=== PATIENT | male | born 1935 | race Asian ===

== ENCOUNTER 2018-02-13 12:40 | Inpatient (IN) | END 2018-02-15 17:15 | disposition home or self-care (01) | DRG 244 ==

== ENCOUNTER 2018-04-11 14:56 | Emergency (ER) | END 2018-04-11 19:29 | disposition left against medical advice (07) ==

== ENCOUNTER 2018-04-15 14:12 | Inpatient (IN) | END 2018-04-15 20:00 | DRG 556 ==

== ENCOUNTER 2018-04-15 20:42 | Inpatient (IN) | END 2018-04-24 15:30 | disposition home health service (06) | DRG 561 ==

== ENCOUNTER 2018-07-18 14:26 | Inpatient (IN) | payer MEDICARE, OTHER ==
[~2018-07-18] VITALS: Ht 170.2 cm; Wt 63.6 kg
[~2018-07-18 14:26] MED LIST: ATOR40TA68 NGT; BRIN8DRO BOTH EYES; CLOP75TA27 PO; DICL100G37 TOP; DOCU-221 PO; DORZ10DR6 BOTH EYES; DOXA4TAB3 PO; NIFE30TA29 PO; OMEG1CAP2 PO; PANT40TA3 NGT
[2018-07-18] MEDS ORDERED: CEFEPIME 2GM/50 ML (PMX) 50 ML IVPB STA (14:42)
[2018-07-18] MEDS ORDERED: VANCOMYCIN 1 GM (PMX) 250 ML IVPB ONE (15:00)
[2018-07-18] MEDS ORDERED: SODIUM CHLORIDE 0.9% 1L BAG IV* STA (15:20)
[2018-07-18] MEDS ORDERED: FLUT16SP17 NASAL (15:45)
[2018-07-18] MEDS ORDERED: HYDR12.58 NGT (15:45)
[2018-07-18] MEDS ORDERED: DOCU-144 PO (15:46)
[2018-07-18] MEDS ORDERED: FINA5TAB4 GTB (15:46)
[2018-07-18] MEDS ORDERED: DONE5TAB7 PO (15:46)
[2018-07-18] MEDS ORDERED: BACL10TA PO (15:46)
[2018-07-18] MEDS ORDERED: DOXA4TAB3 NGT (15:47)
[2018-07-18] MEDS ORDERED: PREG50CA PO (15:47)
[2018-07-18] MEDS ORDERED: ACETAMINOPHEN 325 MG TAB PO PRN ×2 (17:00→17:30)
[2018-07-18] MEDS ORDERED: ONDANSETRON 4 MG INJ IV PRN ×2 (17:00→17:30)
[2018-07-18] MEDS ORDERED: DOCUSATE SODIUM 100 MG CAP PO PRN (17:30)
[2018-07-18] MEDS ORDERED: LORAZEPAM 2 MG INJ IV ONE (17:30)
[2018-07-18] MEDS ORDERED: morphine 2 MG INJ IV PRN (17:30)
[2018-07-18] MEDS ORDERED: NACL 0.9% 3 ML SYG IV SCH (17:30)
[2018-07-18] MEDS ORDERED: HALOPERIDOL 5 MG INJ IM ONE ×2 (18:30→19:00)
[2018-07-18] MEDS: SOD CHLORIDE 0.9% 1,000 ML IV SCH (18:30)
--- NOTE | 2018-07-18 18:35 | ERD ---
ER Documentation Chief Complaint Chief Complaint SOB with congestion HPI Patient is a 83-year-old male with coronary disease and hypertension who presents with shortness of breath. The patient was brought in by ambulance. He was seen by his primary doctor Dr. Arguello in the office who was concerned with pneumonia. He was brought in by ambulance that was called by Dr. Arguello. He had chest pain which started on Saturday and worsening shortness of breath over the last few days as well as cough. He had low oxygen saturation and does not use home oxygen. ROS All systems reviewed and are negative except as per history of present illness. Medications Home Meds Reported Medications Doxazosin Mesylate* (Doxazosin Mesylate*) 4 Mg Tablet, 4 MG PO HS, TAB 07/18/18 Pregabalin* (Lyrica*) 50 Mg Capsule, 50 MG PO DAILY, CAP 07/18/18 Baclofen* (Baclofen*) 10 Mg Tablet, 10 MG PO BID, TAB 07/18/18 Docusate Sodium* (Colace*) 100 Mg Capsule, 100 MG PO BID, #60 CAP 07/18/18 Finasteride* (Finasteride*) 5 Mg Tablet, 5 MG PO DAILY, TAB 07/18/18 Donepezil* (Donepezil*) 5 Mg Tablet, 5 MG PO DAILY, #30 TAB 07/18/18 Fluticasone Propionate* (Fluticasone Propionate* Nasal) 50 Mcg/[place] - 16 Gm [place].susp, 1 SPRAY NASAL DAILY, #1 BOTTLE TO EACH NOSTRIL 07/18/18 Hydrochlorothiazide* (Hydrochlorothiazide*) 12.5 Mg Tablet, 12.5 MG PO DAILY, #30 TAB 07/18/18 Docusate Sodium* (Doc-Q-Lace*) 100 Mg Capsule, 100 MG PO BID PRN for CONSTIPATION, CAP 02/13/18 Nifedipine* (Afeditab CR*) 30 Mg Tablet.sa, 30 MG PO BID, #30 TAB.SA 02/13/18 Pantoprazole* (Protonix*) 40 Mg Tablet.dr, 40 MG PO DAILY, TAB 02/13/18 Atorvastatin* (Atorvastatin*) 40 Mg Tablet, 40 MG PO QHS, #30 TAB 02/13/18 Discontinued Reported Medications Dorzolamide/Timolol* (Dorzolamide/Timolol*) 10 Ml Drops, 1 DROP BOTH EYES BID, #1 EA 04/12/18 Diclofenac Sodium* (Voltaren* Gel) 1% -100 Gm Gel, 2 GM TOP QID for prn for affected area, #1 TUB 04/12/18 Diclofenac Sodium* (Voltaren* Gel) 1% -100 Gm Gel, 2 GM TOP QID for back pain, #1 TUB 04/12/18 Brinzolamide-Brimonidine (Simbrinza 1%-0.2% Oph) 1%-0.2% - 8 Ml Drops.susp, 1 DROP BOTH EYES, EA 02/13/18 Clopidogrel Bisulfate (Clopidogrel) 75 Mg Tablet, 75 MG PO DAILY, #30 TAB 02/13/18 Doxazosin Mesylate* (Doxazosin Mesylate*) 4 Mg Tablet, 4 MG PO HS, TAB 02/13/18 [place]-3 Acid Ethyl Esters (Lovaza) 1 Gm Capsule, 2 GM PO BID, CAP 02/13/18 Allergies Allergies: Coded Allergies: No Known Allergy (Unverified , 07/18/18) PMhx/Soc History of Surgery: Yes (stent and pacemaker ) Anesthesia Reaction: No Hx Neurological Disorder: No Hx Respiratory Disorders: No Hx Cardiac Disorders: Yes (ID, HTN, HYPERLIPIDEMIA, PACEMAKER, STENT PLACEMENT) Hx Psychiatric Problems: No Hx Miscellaneous Medical Probl: Yes (CAD, RIGHT FOOT TOE FRACTURES, FALLS) Hx Alcohol Use: No Hx Substance Use: No Hx Tobacco Use: No Smoking Status: Never smoker FmHx Family History: diabetes Physical Exam Vitals Vital Signs Date Temp Pulse Resp B/P (MAP) Pulse Ox O2 O2 Flow FiO2 Time Delivery Rate 07/18/18 60 100 100 17:31 07/18/18 60 23 136/50 89 BIPAP 17:30 (78) 07/18/18 60 23 132/51 92 BIPAP 17:00 (78) 07/18/18 61 21 129/58 95 High Flow 16:47 (81) 07/18/18 64 22 133/49 94 High Flow 15:48 (77) 07/18/18 100 14:52 07/18/18 98.1 86 27 154/58 96 14:35 (90) 07/18/18 Nasal 14:30 Cannula Physical Exam Const: Moderate distress Head: Atraumatic Eyes: Normal Conjunctiva ENT: Normal External Ears, Nose and Mouth. Neck: Full range of motion. No meningismus. Resp: Decreased breath sounds bilaterally Cardio: Regular rate and rhythm, no murmurs Abd: Soft, non tender, non distended. Normal bowel sounds Skin: No petechiae or rashes Back: No midline or flank tenderness Ext: No cyanosis, or edema Neur: Awake and alert Psych: Normal Mood and Affect Result Diagram: 07/18/18 1506 07/18/18 1506 Results 24 hrs Laboratory Tests Test 07/18/18 15:02 07/18/18 15:06 07/18/18 17:07 07/18/18 17:13 Urine Color YELLOW Urine Clarity CLEAR Urine pH 5.0 Urine Specific 1.016 [place] Urine Ketones NEGATIVE mg/dL Urine Nitrite NEGATIVE mg/dL Urine Bilirubin NEGATIVE mg/dL Urine NEGATIVE mg/dL Urobilinogen Urine Leukocyte NEGATIVE Chip/ul Esterase Urine NEGATIVE mg/dL Hemoglobin Urine Glucose NEGATIVE mg/dL Urine Total NEGATIVE mg/dl Protein White Blood 14.2 10^3/ul Count Red Blood Count 2.76 10^6/ul Hemoglobin 8.9 g/dl Hematocrit 26.9 % Mean 97.5 fl Corpuscular Volume Mean 32.2 pg Corpuscular Hemoglobin Mean 33.1 g/dl Corpuscular Hemoglobin Conc ent Red Cell 12.7 % Distribution Width Platelet Count 196 10^3/UL Mean Platelet 11.2 fl Volume Immature 0.600 % Granulocytes % Neutrophils % 92.0 % Lymphocytes % 2.3 % Monocytes % 5.0 % Eosinophils % 0.0 % Basophils % 0.1 % Nucleated Red 0.0 /100WBC Blood Cells % Immature 0.090 10^3/ul Granulocytes # Neutrophils # 13.0 10^3/ul Lymphocytes # 0.3 10^3/ul Monocytes # 0.7 10^3/ul Eosinophils # 0.0 10^3/ul Basophils # 0.0 10^3/ul Nucleated Red 0.0 10^3/ul Blood Cells # Prothrombin 15.8 Sec Time Prothrombin 1.2 Time Ratio INR 1.24 International Normalized Rati o Activated 37.5 Sec Partial Thrombo plast Time Sodium Level 136 mmol/L Potassium Level 5.0 mmol/L Chloride Level 100 mmol/L Carbon Dioxide 17 mmol/L Level Anion Gap 19 Blood Urea 59 mg/dl Nitrogen Creatinine 1.54 mg/dl Est Glomerular mL/min Filtrat Rate mL/min Glucose Level 245 mg/dl POC Venous 3.6 mmol/L 3.2 mmol/L Lactate Calcium Level 8.6 mg/dl Troponin I 0.108 ng/ml Bedside Glucose 275 mg/dL Current Medications Medications Dose Sig/Kayy Start Time Status Last (Trade) Ordered Route PRN Stop Time Admin Dose Reason Admin Cefepime HCl 50 ml @ ONCE STAT 07/18/18 DC 07/18/18 100 mls/hr IVPB 14:42 15:13 07/18/18 15:11 Vancomycin 250 ml @ ONCE ONCE 07/18/18 DC 07/18/18 HCl 125 mls/hr IVPB 15:00 15:32 07/18/18 16:59 Sodium 1,910 ml BOLUS OVER 2 07/18/18 DC 07/18/18 Chloride HOURS STAT 15:20 15:31 (NS) IV* 07/18/18 15:21 Ondansetron 4 mg ER BRIDGE 07/18/18 HCl (Zofran PRN IV 17:00 Inj) NAUSEA AND/OR 07/19/18 VOMITING 16:59 650 mg ER BRIDGE 07/18/18 Acetaminophen PRN PO MILD 17:00 (Tylenol PAIN(1-3)OR 07/19/18 Tab) ELEVATED TEMP 16:59 Lorazepam 1 mg ONCE ONCE 07/18/18 DC 07/18/18 (Ativan) IV 17:30 17:36 07/18/18 17:31 Sodium 1,000 ml @ Q10H IV 07/18/18 Chloride 100 mls/hr 17:06 IV Flush 3 ml PER 07/18/18 UNV (NS 3 ml) PROTOCOL IV 17:30 Ondansetron 4 mg Q6H PRN 07/18/18 UNV HCl (Zofran IV NAUSEA 17:30 Inj) AND/OR VOMITING 650 mg Q6H PRN 07/18/18 UNV Acetaminophen PO PAIN 17:30 (Tylenol LEVEL 1-3 OR Tab) FEVER Morphine 2 mg Q4H PRN 07/18/18 UNV Sulfate IV PAIN 17:30 (morphine) LEVEL 7-10 Famotidine 20 mg Q12 IV 07/18/18 UNV (Pepcid Iv) 21:00 Enoxaparin 30 mg DAILY SC 07/19/18 UNV Sodium 09:00 (Lovenox) Cefepime HCl 50 ml @ Q8 IVPB 07/18/18 UNV 100 mls/hr 22:00 40 mg QHS PO 07/18/18 UNV Atorvastatin 21:00 Calcium (Lipitor) Baclofen 10 mg BID PO 07/18/18 UNV (Lioresal) 21:00 Docusate 100 mg BID PO 07/18/18 UNV Sodium 21:00 (Colace) Docusate 100 mg BID PRN 07/18/18 UNV Sodium PO 17:30 (Colace) CONSTIPATION Donepezil 5 mg DAILY PO 07/19/18 UNV HCl 09:00 (Aricept) Doxazosin 4 mg HS PO 07/18/18 UNV Mesylate 21:00 (Cardura) Finasteride 5 mg DAILY PO 07/19/18 UNV (Proscar) 09:00 Fluticasone 1 spray DAILY 07/19/18 UNV Propionate NASAL 09:00 (Flonase 0.05% Nasal) 12.5 mg DAILY PO 07/19/18 UNV Hydrochloroth 09:00 iazide (Hydrochlorot hiazide) Nifedipine 30 mg BID PO 07/18/18 UNV (Procardia 21:00 Xl) 40 mg DAILY PO 07/19/18 UNV Pantoprazole 09:00 (Protonix Tab) Pregabalin 50 mg DAILY PO 07/19/18 (Lyrica) 09:00 Haloperidol 5 mg ONCE ONCE 07/18/18 DC 07/18/18 (Haldol) IM 18:30 18:12 07/18/18 18:31 Procedures/MDM Chest X-ray 1V Interpreted by me: Soft Tissue: No acute abnormalities Bones: No acute abnormalities Mediastinum/Cardiac Silhouette/Lungs: Bilateral pneumonia EKG read by me: Rate/Rhythm: Paced rhythm at a normal rate Intervals: Normal Impression: Paced rhythm with negative Sgarbossa criteria Sepsis Documentation: Patient's infectious symptoms have not stabilized and the patient is at risk of rapid decompensation. The patient will be admitted for careful hydration, antibiotic therapy, and infectious source control. SEVERE SEPSIS CRITERIA: Infectious source: Pneumonia End organ damage indicated by: Lactate greater than 2 and respiratory failure SEPSIS MANAGEMENT Time of recognition of sepsis: 1506. Time of recognition of severe sepsis: 1506. Time of recognition of septic shock: No septic shock at this time. 3 HOUR BUNDLE Blood cultures x 2 before broad-spectrum antibiotics: Yes 30 ml/kg NS bolus completed Initial lactate 3.6 Repeat lactate 3.2 SEPTIC SHOCK ASSESSMENT: No lactic acid > 4.0 No persistent hypotension (SBP < 90 or 40 mmHg drop, MAP < 65) despite 30 mL/kg IV fluid bolus VOLUME REASSESSMENT FOR SEPTIC SHOCK: No septic shock at this time PERSISTENT HYPOTENSION TREATMENT: Comfort care no Central line not Required Vasopressor started not required I considered further perfusion assessment with CVP measurement, SCVO2, bedside ultrasound volume assessment, passive leg raise, trial of further fluid bolus. And proceeded with 30 ml/kg fluid bolus of NSS, broad spectrum antibiotics, and admission. The patient initially was put on high flow nasal cannula oxygen but became confused and hypoxic and was upgraded to BiPAP therapy. He needed Ativan and Haldol for confusion as he started to take off the mask and would desaturate. He will be upgraded to the intensive care unit for his respiratory status. At this point I would like to hold off on intubation but if he declines may require intubation in the future. I spoke with Dr. Arguello who asked me to admit to Dr. Brown and Dr. Stacy. I spoke with Dr. Payton for admission. CRITICAL CARE Critical care time 35 minutes Emergent fluid management while maintaining close respiratory support. Provision of immediate and broad-spectrum antibiotic therapy. Simultaneous assessment for possible sources in order to direct targeted therapy. Consideration for invasive and chemical support to prevent cardiopulmonary collapse. Critical care time is independent of procedures performed. Departure Diagnosis: Primary Impression: PNA (pneumonia) Pneumonia type: due to Mycoplasma pneumoniae Laterality: bilateral Lung location: unspecified part of lung Qualified Codes: J15.7 - Pneumonia due to Mycoplasma pneumoniae Additional Impressions: Shortness of breath Respiratory failure Chronicity: acute Respiratory failure complication: hypoxia Qualified Codes: J96.01 - Acute respiratory failure with hypoxia Hypoxia Severe sepsis Condition: Serious CHRIST CALLAWAY MD Jul 18, 2018 18:35
[2018-07-18] MEDS: BACLOFEN 10 MG TAB PO SCH (21:00)
[2018-07-18] MEDS: NIFEdipine (XL) 30 MG TAB PO SCH (21:00)
[2018-07-18] MEDS: ATORVASTATIN 40 MG TAB PO SCH (21:00)
[2018-07-18] MEDS: DOXAZOSIN 4 MG TAB PO SCH (21:00)
[2018-07-18] MEDS: DOCUSATE SODIUM 100 MG CAP PO SCH (21:00)
[2018-07-18 21:55] VITALS: PULSE 60; PULSE 62
[2018-07-18] MEDS ORDERED: CEFEPIME 2GM/50 ML (PMX) 50 ML IVPB SCH (22:00)
[2018-07-18] MEDS: FAMOTIDINE 20 MG INJ IV SCH (23:07)
[2018-07-18] MEDS ORDERED: LORAZEPAM 4 MG/ML VIAL IV PRN (23:30)
[2018-07-18] MEDS ORDERED: HALOPERIDOL 5 MG INJ IM PRN (23:30)
[2018-07-18 23:35] VITALS: PULSE 59
[2018-07-19] VITALS (30 sets, daily range): BP systolic 106–139; BP diastolic 45–71; PULSE 60–92; RESP 15–27; Ht 170.2 cm; Wt 63.6 kg
[2018-07-19] MEDS: SOD CHLORIDE 0.9% 1,000 ML IV SCH ×4 (00:50→17:40)
[2018-07-19] MEDS ORDERED: ETOMIDATE 20 MG INJ ONE (07:00)
[2018-07-19] MEDS ORDERED: VECURONIUM 10 MG VIAL ONE (07:00)
[2018-07-19] MEDS: PANTOPRAZOLE (EC) 40 MG TAB PO SCH (09:00)
[2018-07-19] MEDS ORDERED: PREGABALIN 25 MG CAP PO SCH (09:00)
[2018-07-19] MEDS: NIFEdipine (XL) 30 MG TAB PO SCH ×2 (09:00→21:00)
[2018-07-19] MEDS: DONEPEZIL 5 MG TAB PO SCH (09:00)
[2018-07-19] MEDS: FLUTICASONE 0.05% 16 GM NAS SPRAY NASAL SCH (09:00)
--- NOTE | 2018-07-19 09:16 | CONS ---
Date/Time of Note Date/Time of Note DATE: 07/19/18 TIME: 09:13 Assessment/Plan Assessment/Plan Additional Assessment/Plan Chest x-ray showing severe bilateral pneumonia pacemaker in left chest wall. Assessment recommendations; 1. Patient admitted with severe bilateral pneumonia feeling BiPAP. 2. Other comorbidities include history of hypertension, chronic renal insufficiency, BPH, muscle spasms and hyperlipidemia. 3. Anemia and thrombocytopenia. Patient has been intubated without difficulty at bedside. Will add Levaquin to 50 mg IV daily. Continue other supportive measures. Obtain post intubation ABG. Obtain follow-up chest x-ray post intubation as well as in 24 hours. Start tube feeding. 35 minutes of critical care time was spent evaluating the patient. Consultation Date/Type/Reason Admit Date/Time Jul 18, 2018 at 16:57 Date of Consultation: Jul 19, 2018 Type of Consult Pulmonary/critical care History presenting any; patient is an 83-year-old male who was sent over to the hospital from physician's office because of severe shortness of breath. Patient has been diagnosed with bilateral pneumonia and has been admitted to ICU. By the time I saw him, patient is on BiPAP at high FiO2 with severe tachypnea. Chest x-ray was reviewed which is showing severe bilateral pneumonia. It was decided to electively intubate the patient. Past medical history; 1. Apparently mild chronic renal insufficiency. 2. Hypertension. 3. BPH. 4. Hyperlipidemia. 5. History of muscle spasm. Medications; reviewed. Allergies; none. Social history; non-smoker. Family history, occupational history not available. Review of system; unable to be obtained. Because of tachypnea. General exam; elderly male, on BiPAP, lethargic. Tachypneic. Past Medical History Medications Current Medications Sodium Chloride 1,000 ml @ 100 mls/hr Q10H IV Last administered on 07/19/18at 00:50; Admin Dose 100 MLS/HR; Start 07/18/18 at 17:06 IV Flush (NS 3 ml) 3 ml PER PROTOCOL IV ; Start 07/18/18 at 17:30 Ondansetron HCl (Zofran Inj) 4 mg Q6H PRN IV NAUSEA AND/OR VOMITING; Start 07/18/18 at 17:30 Acetaminophen (Tylenol Tab) 650 mg Q6H PRN PO PAIN LEVEL 1-3 OR FEVER; Start 07/18/18 at 17:30 Morphine Sulfate (morphine) 2 mg Q4H PRN IV PAIN LEVEL 7-10; Start 07/18/18 at 17:30 Famotidine (Pepcid Iv) 20 mg Q12 IV Last administered on 07/18/18at 23:07; Admin Dose 20 MG; Start 07/18/18 at 21:00 Enoxaparin Sodium (Lovenox) 30 mg DAILY SC ; Start 07/19/18 at 09:00 Atorvastatin Calcium (Lipitor) 40 mg QHS PO ; Start 07/18/18 at 21:00 Baclofen (Lioresal) 10 mg BID PO ; Start 07/18/18 at 21:00 Docusate Sodium (Colace) 100 mg BID PO ; Start 07/18/18 at 21:00 Docusate Sodium (Colace) 100 mg BID PRN PO CONSTIPATION; Start 07/18/18 at 17:30 Donepezil HCl (Aricept) 5 mg DAILY PO ; Start 07/19/18 at 09:00 Doxazosin Mesylate (Cardura) 4 mg HS PO ; Start 07/18/18 at 21:00 Finasteride (Proscar) 5 mg DAILY PO ; Start 07/19/18 at 09:00 Fluticasone Propionate (Flonase 0.05% Nasal) 1 spray DAILY NASAL ; Start 07/19/18 at 09:00 Hydrochlorothiazide (Hydrochlorothiazide) 12.5 mg DAILY PO ; Start 07/19/18 at 09:00 Nifedipine (Procardia Xl) 30 mg BID PO ; Start 07/18/18 at 21:00 Pantoprazole (Protonix Tab) 40 mg DAILY PO ; Start 07/19/18 at 09:00 Pregabalin (Lyrica) 50 mg DAILY PO ; Start 07/19/18 at 09:00 Cefepime HCl 50 ml @ 100 mls/hr Q12 IVPB Last administered on 07/19/18at 00:00; Admin Dose 100 MLS/HR; Start 07/18/18 at 21:00 Lorazepam (Ativan) 1 mg Q4H PRN IV AGITATION Last administered on 07/18/18at 23:26; Admin Dose 1 MG; Start 07/18/18 at 23:30 Haloperidol (Haldol) 5 mg Q2H PRN IM AGITATION Last administered on 07/19/18at 02:37; Admin Dose 5 MG; Start 07/18/18 at 23:30 Allergies: Coded Allergies: No Known Allergy (Unverified , 07/18/18) Social History Smoking Status: Never smoker Exam/Review of Systems Vital Signs Vitals Vital Signs Date Temp Pulse Resp B/P (MAP) Pulse Ox O2 O2 Flow FiO2 Time Delivery Rate 07/19/18 62 100 100 06:06 07/18/18 13 135/57 BIPAP 21:17 (83) 07/18/18 98.1 21:00 Intake and Output 07/18/18 07/18/18 07/19/18 1515:00 23:00 07:00 IntakeIntake Total 1960 ml 600 ml BalanceBalance 1960 ml 600 ml Exam H EENT exam; supple neck, patient is a multiple carious teeth. No neck masses. Oral mucosa is dry. No neck masses. Pupils are small bilaterally. Chest exam; bilateral crackles. S1-S2 audible, no murmurs. Regular rhythm. Abdomen exam; soft, no organomegaly. Nontender. Bowel sounds audible. Nondistended. Extremity exam; no edema or clubbing. Pulses 1+. [employer] exam; patient is awake and responsive. PATIENCE MCDONNELL Jul 19, 2018 09:16
[2018-07-19] MEDS ORDERED: LIDOCAINE 1% (MPF) 5 ML VIAL INJ ONE (10:30)
--- NOTE | 2018-07-19 10:43 | HP ---
Date/Time of Note Date/Time of Note DATE: 07/19/18 TIME: 10:41 Assessment/Plan VTE Prophylaxis Pharmacological prophylaxis: LMWH Lines/Catheters IV Catheter Type (from Nrs): Saline Lock Assessment/Plan Hospital Course 1) pneumonia - IV antibiotics 2) respiratory failure - on ventilator support - monitor clinically HPI/ROS Admit Date/Time Admit Date/Time Jul 18, 2018 at 16:57 Hx of Present Illness Patient with history of hypertension and coronary artery disease was sent from his primary physician to the emergency with shortness of breath. Patient was found to have bilateral pneumonia and respiratory distress. Patient was initially placed on bipap and then he decompensated and had to be intubated later on. Patient is admitted for further treatment of pneumonia. PMH/Family/Social Past Medical History Medical History: coronary artery disease, hypertension Coded Allergies: No Known Allergy (Unverified , 07/18/18) Social History Smoking Status: Never smoker Exam/Review of Systems Vital Signs Vitals Vital Signs Date Temp Pulse Resp B/P (MAP) Pulse Ox O2 O2 Flow FiO2 Time Delivery Rate 07/19/18 62 100 100 06:06 07/18/18 13 135/57 BIPAP 21:17 (83) 07/18/18 98.1 21:00 Intake and Output 07/18/18 07/18/18 07/19/18 1515:00 23:00 07:00 IntakeIntake Total 1960 ml 600 ml BalanceBalance 1960 ml 600 ml Exam Constitutional: well developed Head: normocephalic, atraumatic Neck: supple Respiratory: diminished breath sounds Cardiovascular: regular rate and rhythm Gastrointestinal: soft, non-tender Extremities: normal pulses Medications Medications Current Medications Sodium Chloride 1,000 ml @ 100 mls/hr Q10H IV Last administered on 07/19/18at 00:50; Admin Dose 100 MLS/HR; Start 07/18/18 at 17:06 IV Flush (NS 3 ml) 3 ml PER PROTOCOL IV ; Start 07/18/18 at 17:30 Ondansetron HCl (Zofran Inj) 4 mg Q6H PRN IV NAUSEA AND/OR VOMITING; Start 07/18/18 at 17:30 Acetaminophen (Tylenol Tab) 650 mg Q6H PRN PO PAIN LEVEL 1-3 OR FEVER; Start 07/18/18 at 17:30 Morphine Sulfate (morphine) 2 mg Q4H PRN IV PAIN LEVEL 7-10; Start 07/18/18 at 17:30 Famotidine (Pepcid Iv) 20 mg Q12 IV Last administered on 07/18/18at 23:07; Admin Dose 20 MG; Start 07/18/18 at 21:00 Enoxaparin Sodium (Lovenox) 30 mg DAILY SC ; Start 07/19/18 at 09:00 Atorvastatin Calcium (Lipitor) 40 mg QHS PO ; Start 07/18/18 at 21:00 Baclofen (Lioresal) 10 mg BID PO ; Start 07/18/18 at 21:00 Docusate Sodium (Colace) 100 mg BID PO ; Start 07/18/18 at 21:00 Docusate Sodium (Colace) 100 mg BID PRN PO CONSTIPATION; Start 07/18/18 at 17:30 Donepezil HCl (Aricept) 5 mg DAILY PO ; Start 07/19/18 at 09:00 Doxazosin Mesylate (Cardura) 4 mg HS PO ; Start 07/18/18 at 21:00 Finasteride (Proscar) 5 mg DAILY PO ; Start 07/19/18 at 09:00 Fluticasone Propionate (Flonase 0.05% Nasal) 1 spray DAILY NASAL ; Start 07/19/18 at 09:00 Hydrochlorothiazide (Hydrochlorothiazide) 12.5 mg DAILY PO ; Start 07/19/18 at 09:00 Nifedipine (Procardia Xl) 30 mg BID PO ; Start 07/18/18 at 21:00 Pantoprazole (Protonix Tab) 40 mg DAILY PO ; Start 07/19/18 at 09:00 Pregabalin (Lyrica) 50 mg DAILY PO ; Start 07/19/18 at 09:00 Cefepime HCl 50 ml @ 100 mls/hr Q12 IVPB Last administered on 07/19/18at 00:00; Admin Dose 100 MLS/HR; Start 07/18/18 at 21:00 Lorazepam (Ativan) 1 mg Q4H PRN IV AGITATION Last administered on 07/18/18at 23:26; Admin Dose 1 MG; Start 07/18/18 at 23:30 Haloperidol (Haldol) 5 mg Q2H PRN IM AGITATION Last administered on 07/19/18at 02:37; Admin Dose 5 MG; Start 07/18/18 at 23:30 Levofloxacin/ Dextrose 50 ml @ 50 mls/hr Q24H IVPB ; Start 07/19/18 at 10:00 Results Result Diagram: 07/19/18 0507 07/19/18 0507 Results 24 hrs Laboratory Tests Test 07/18/18 15:02 07/18/18 15:06 07/18/18 17:07 07/18/18 17:13 Urine Color YELLOW Urine Clarity CLEAR Urine pH 5.0 Urine Specific 1.016 [place] Urine Ketones NEGATIVE Urine Nitrite NEGATIVE Urine Bilirubin NEGATIVE Urine NEGATIVE Urobilinogen Urine Leukocyte NEGATIVE Esterase Urine NEGATIVE Hemoglobin Urine Glucose NEGATIVE Urine Total NEGATIVE Protein White Blood 14.2 #H Count Red Blood Count 2.76 L Hemoglobin 8.9 L Hematocrit 26.9 L Mean 97.5 Corpuscular Volume Mean 32.2 Corpuscular Hemoglobin Mean 33.1 Corpuscular Hemoglobin Conc ent Red Cell 12.7 Distribution Width Platelet Count 196 Mean Platelet 11.2 H Volume Immature 0.600 H Granulocytes % Neutrophils % 92.0 H Lymphocytes % 2.3 L Monocytes % 5.0 Eosinophils % 0.0 Basophils % 0.1 Nucleated Red 0.0 Blood Cells % Immature 0.090 H Granulocytes # Neutrophils # 13.0 H Lymphocytes # 0.3 L Monocytes # 0.7 Eosinophils # 0.0 Basophils # 0.0 Nucleated Red 0.0 Blood Cells # Prothrombin 15.8 #H Time Prothrombin 1.2 Time Ratio INR 1.24 International Normalized Rati o Activated 37.5 H Partial Thrombo plast Time Sodium Level 136 Potassium Level 5.0 Chloride Level 100 Carbon Dioxide 17 L Level Anion Gap 19 H Blood Urea 59 H Nitrogen Creatinine 1.54 H Est Glomerular Filtrat Rate mL/min Glucose Level 245 H POC Venous 3.6 *H 3.2 *H Lactate Calcium Level 8.6 Troponin I 0.108 Bedside Glucose 275 H Test 07/18/18 18:12 07/18/18 19:22 07/19/18 05:07 07/19/18 10:00 Blood Gas Blood arterial Blood Specimen arterial Source Arterial Blood 07/18/2018 6:27 07/19/2018 10: Date Drawn :08 PM 20:32 AM Arterial Blood 7.454 H 7.276 *L pH (Temp corrected ) Arterial Blood 24.4 L 40.6 pCO2 (Temp correct) Arterial Blood 109.1 H 141.3 H pO2 (Temp corrected ) Arterial Blood 16.7 L 18.5 L HCO3 Arterial Blood -6.0 L -7.8 L Base Excess Arterial Blood 97.4 98.0 Oxygen Saturati on Margarito Test ACCEPTAB ACCEPTAB Arterial Blood Right Radial Right Radial Gas Puncture Site Arterial 0.3 0.3 Blood Carboxyhe moglobin Arterial Blood 0.2 0.3 Methemoglobin Blood Gas A-a 579.5 H 531.1 H O2 Differential Oxyhemoglobin 96.9 97.4 Percent Blood Gas 37.0 37.0 Temperature Blood Gas 14.0 16.0 Respiration Rate Blood Gas 26 16 Actual Respiration Rat e Blood Gas MASK - BIPAP VENT - AC Modality FiO2 100.0 100.0 Blood Gas 10 Pressure Support Blood Gas 15/5 IPAP/EPAP Ratio Blood Gas Leslye CARLOS RCP Notified Whom Blood Gas 07/18/2018 6:39 07/19/2018 10: Notified Time :35 PM 40:14 AM Lactic Acid 2.3 *H Level White Blood 15.1 H Count Red Blood Count 2.41 L Hemoglobin 7.8 L Hematocrit 23.1 L Mean 95.9 Corpuscular Volume Mean 32.4 Corpuscular Hemoglobin Mean 33.8 Corpuscular Hemoglobin Conc ent Red Cell 12.7 Distribution Width Platelet Count 163 Mean Platelet 10.7 H Volume Immature 0.600 H Granulocytes % Neutrophils % 94.9 H Lymphocytes % 2.0 L Monocytes % 2.4 Eosinophils % 0.0 Basophils % 0.1 Nucleated Red 0.0 Blood Cells % Immature 0.090 H Granulocytes # Neutrophils # 14.3 H Lymphocytes # 0.3 L Monocytes # 0.4 Eosinophils # 0.0 Basophils # 0.0 Nucleated Red 0.0 Blood Cells # Sodium Level 141 Potassium Level 5.0 Chloride Level 109 Carbon Dioxide 18 L Level Anion Gap 14 H Blood Urea 67 H Nitrogen Creatinine 1.47 H Est Glomerular Filtrat Rate mL/min Glucose Level 133 # Hemoglobin A1c 6.0 H Calcium Level 7.9 L Total Bilirubin 0.2 Direct 0.00 Bilirubin Indirect 0.2 Bilirubin Aspartate Amino 56 H Transf (AST/SGO T) Alanine 33 Aminotransferas e (ALT/SGPT) Alkaline 58 Phosphatase Total Protein 6.0 L Albumin 3.2 L Globulin 2.80 Albumin/Globuli 1.14 n Ratio Blood Gas Tidal 550.0 Volume Blood Gas Low 8.0 PEEP Setting Blood Gas I.Priscilla PERRY Critical Value N Read Back HARLEY STARR Jul 19, 2018 10:43
[2018-07-19] MEDS: LEVOFLOXACIN 250MG/D5W (PMX) 50 ML IVPB SCH (10:55)
[2018-07-19] MEDS: ENOXAPARIN 30 MG/0.3 ML SYG SC SCH (11:02)
[2018-07-19] MEDS: FINASTERIDE 5 MG TAB PO SCH (11:06)
[2018-07-19] MEDS: HYDROCHLOROTHIAZIDE 12.5 MG CAP PO SCH (11:09)
[2018-07-19] MEDS: DOCUSATE SODIUM 100 MG CAP PO SCH ×2 (11:09→21:05)
[2018-07-19] MEDS: BACLOFEN 10 MG TAB PO SCH ×2 (11:09→21:05)
[2018-07-19] MEDS: FAMOTIDINE 20 MG INJ IV SCH ×2 (11:22→21:05)
[2018-07-19] MEDS: CEFEPIME 2GM/50 ML (PMX) 50 ML IVPB SCH ×3 (11:23→21:06)
[2018-07-19] MEDS ORDERED: NA BICARBONATE 8.4% 50 ML SYG IV ONE (12:30)
[2018-07-19] MEDS: PROPOFOL 100 ML IV SCH ×2 (13:43→22:48)
[2018-07-19] MEDS: PREGABALIN 50 MG CAP PO SCH (14:09)
--- NOTE | 2018-07-19 18:50 | CONS ---
Date/Time of Note Date/Time of Note DATE: 07/19/18 TIME: 18:50 Assessment/Plan Assessment/Plan Additional Assessment/Plan 1. Acute renal failure due to ATN from sepsis + prerenal azotemia 2. Sepsis due to PNA 3. Acute Hypoxemic respiratory failure due to PNA 4. H/o CAD s/p previous stent placement 5. h/o Pacemaker placement 6. H/o HTN 7. H/o HL 8. H/o Chronic back pain, Prostate CA Plan: IVF NS at 100 cc/hr IV abx Levaquin and IV cefepime, Renally dose all abx and monitor electrolytes Urine studies including Urine Na Urine Prot/cr ratio, Urine Eosinophils, CK total, Uric acid Renal US to assess for CKD to hydronephrosis Thanks for consultation , I will continue to follow up Pt has MYKE due to ATN, ok to have PICC Line placement Consultation Date/Type/Reason Admit Date/Time Jul 18, 2018 at 16:57 Date of Consultation: Jul 19, 2018 Type of Consult NEPHROLOGY Reason for Consultation acute renal failure, uremia Requesting Provider: HARLEY STARR Hx of Present Illness 83-year-old male who was sent over to the hospital from physician's office because of severe shortness of breath. Patient has been diagnosed with bilateral pneumonia and has been admitted to ICU. By the time I saw him, patient is on BiPAP at high FiO2 with severe tachypnea. Chest x-ray was reviewed which is showing severe bilateral pneumonia. he was electivly intubatd for respiraroty failure. pt was noted thave Elevated BUN/Cr 67/1.47, HCo3 18- ABG showed PH 7.27-pt received One dose of sodim biucarbonate and renal has been consulted for acute renal failure, Uremia and Metabolic acidosis. currently intubated pt is non verbal Subjective hx not possible: pt non-verbal, pt critical status, other (Intubated on ventilator ) Past Medical History Medical History: coronary artery disease, hypertension Medications Current Medications Sodium Chloride 1,000 ml @ 100 mls/hr Q10H IV Last administered on 07/19/18at 17:40; Admin Dose 100 MLS/HR; Start 07/18/18 at 17:06 IV Flush (NS 3 ml) 3 ml PER PROTOCOL IV ; Start 07/18/18 at 17:30 Ondansetron HCl (Zofran Inj) 4 mg Q6H PRN IV NAUSEA AND/OR VOMITING; Start 07/18/18 at 17:30 Acetaminophen (Tylenol Tab) 650 mg Q6H PRN PO PAIN LEVEL 1-3 OR FEVER; Start 07/18/18 at 17:30 Morphine Sulfate (morphine) 2 mg Q4H PRN IV PAIN LEVEL 7-10; Start 07/18/18 at 17:30 Famotidine (Pepcid Iv) 20 mg Q12 IV Last administered on 07/19/18at 11:22; Admin Dose 20 MG; Start 07/18/18 at 21:00 Enoxaparin Sodium (Lovenox) 30 mg DAILY SC Last administered on 07/19/18at 11:02; Admin Dose 30 MG; Start 07/19/18 at 09:00 Atorvastatin Calcium (Lipitor) 40 mg QHS PO ; Start 07/18/18 at 21:00 Baclofen (Lioresal) 10 mg BID PO Last administered on 07/19/18at 11:09; Admin Dose 10 MG; Start 07/18/18 at 21:00 Docusate Sodium (Colace) 100 mg BID PO Last administered on 07/19/18at 11:09; Admin Dose 100 MG; Start 07/18/18 at 21:00 Docusate Sodium (Colace) 100 mg BID PRN PO CONSTIPATION; Start 07/18/18 at 17:30 Donepezil HCl (Aricept) 5 mg DAILY PO ; Start 07/19/18 at 09:00 Doxazosin Mesylate (Cardura) 4 mg HS PO ; Start 07/18/18 at 21:00 Finasteride (Proscar) 5 mg DAILY PO Last administered on 07/19/18at 11:06; Admin Dose 5 MG; Start 07/19/18 at 09:00 Fluticasone Propionate (Flonase 0.05% Nasal) 1 spray DAILY NASAL ; Start 07/19/18 at 09:00 Hydrochlorothiazide (Hydrochlorothiazide) 12.5 mg DAILY PO Last administered on 07/19/18at 11:09; Admin Dose 12.5 MG; Start 07/19/18 at 09:00 Nifedipine (Procardia Xl) 30 mg BID PO ; Start 07/18/18 at 21:00 Pantoprazole (Protonix Tab) 40 mg DAILY PO ; Start 07/19/18 at 09:00 Cefepime HCl 50 ml @ 100 mls/hr Q12 IVPB Last administered on 07/19/18at 11:23; Admin Dose 100 MLS/HR; Start 07/18/18 at 21:00 Lorazepam (Ativan) 1 mg Q4H PRN IV AGITATION Last administered on 07/18/18at 23:26; Admin Dose 1 MG; Start 07/18/18 at 23:30 Haloperidol (Haldol) 5 mg Q2H PRN IM AGITATION Last administered on 07/19/18at 02:37; Admin Dose 5 MG; Start 07/18/18 at 23:30 Levofloxacin/ Dextrose 50 ml @ 50 mls/hr Q24H IVPB Last administered on 07/19/18at 10:55; Admin Dose 50 MLS/HR; Start 07/19/18 at 10:00 Pregabalin (Lyrica) 50 mg DAILY PO Last administered on 07/19/18at 14:09; Admin Dose 50 MG; Start 07/19/18 at 13:00 Propofol 100 ml @ 1.909 mls/ hr Q12H IV Last administered on 07/19/18at 13:43; Admin Dose 1.909 MLS/HR; Start 07/19/18 at 14:00 Allergies: Coded Allergies: No Known Allergy (Unverified , 07/18/18) Past Surgical History Past Surgical Hx: other (Cardiac Stent placement , Pacemaker placement ) Family History Significant Family History: no pertinent family hx Social History Alcohol Use: none Smoking Status: Never smoker Drug Use: none Exam/Review of Systems Vital Signs Vitals Vital Signs Date Temp Pulse Resp B/P (MAP) Pulse Ox O2 O2 Flow FiO2 Time Delivery Rate 07/19/18 60 18 119/51 96 Mechanical 18:00 (73) Ventilator 07/19/18 100 17:10 07/19/18 99.3 16:00 Intake and Output 07/18/18 07/18/18 07/19/18 1515:00 23:00 07:00 IntakeIntake Total 1960 ml 700 ml OutputOutput Total 40 ml BalanceBalance 1960 ml 660 ml Exam Constitutional: non-verbal Head: normocephalic ENMT: intubated, other (ET tube in place ) Neck: supple, non-tender Respiratory: congested cough, crackles/rales, diminished breath sounds Cardiovascular: regular rate and rhythm, nl pulses Gastrointestinal: soft, non-tender Musculoskeletal: nl extremities to inspection, muscle weakness, swelling Neurological: other (sedated, intubated on ventilator ) Skin: nl turgor Lymph: nl lymph nodes FELICIANO RAMIREZ MD Jul 19, 2018 18:50
[2018-07-19] MEDS: DOXAZOSIN 4 MG TAB PO SCH (21:00)
[2018-07-19] MEDS: ATORVASTATIN 40 MG TAB PO SCH (21:05)
[2018-07-20] VITALS (34 sets, daily range): BP systolic 92–124; BP diastolic 46–57; PULSE 60–66; RESP 15–28
[2018-07-20] MEDS: PROPOFOL 100 ML IV SCH ×3 (06:00→21:23)
[2018-07-20] MEDS: SOD CHLORIDE 0.9% 1,000 ML IV SCH (06:00)
--- NOTE | 2018-07-20 08:42 | CONS ---
Date/Time of Note Date/Time of Note DATE: 07/20/18 TIME: 08:39 Assessment/Plan Assessment/Plan Additional Assessment/Plan Ventilator setting; AC of 16, tidal volume 550, PEEP of 8, 55% FiO2. Patient is currently on propofol at 35 mics per kilogram per minute. Assessment and recommendations; 1. Patient admitted with severe bilateral pneumonia requiring intubation having failed BiPAP. 2. Apparently chronic renal insufficiency, however serum creatinine has improved. 3. Anemia and thrombocytopenia. 4. BPH. 5. History of restless leg syndrome. 6. History of hypertension. 7. History of muscle spasms. 8. Metabolic acidosis. Patient required bicarbonate administration. Continue current supportive care. Obtain ABG and chest x-ray. Start tube feeding. Further recommendation once x-ray and ABG are obtained. 35 minutes of critical care time was spent evaluating the patient. Consultation Date/Type/Reason Admit Date/Time Jul 18, 2018 at 16:57 Initial Consult Date 07/19/18 Type of Consult Pulmonary/critical care History presenting any; patient is an 83-year-old male who was sent over to the hospital from physician's office because of severe shortness of breath. Patient has been diagnosed with bilateral pneumonia and has been admitted to ICU. By the time I saw him, patient is on BiPAP at high FiO2 with severe tachypnea. Chest x-ray was reviewed which is showing severe bilateral pneumonia. It was decided to electively intubate the patient. Past medical history; 1. Apparently mild chronic renal insufficiency. 2. Hypertension. 3. BPH. 4. Hyperlipidemia. 5. History of muscle spasm. Medications; reviewed. Allergies; none. Social history; non-smoker. Family history, occupational history not available. Review of system; unable to be obtained. Because of tachypnea. General exam; elderly male, on BiPAP, lethargic. Tachypneic. Requesting Provider: HARLEY STARR 24 HR Interval Summary Free Text/Dictation Patient's condition remains critical. Still requiring fairly high FiO2. General exam; elderly male, orally intubated, sedated, currently no distress. Exam/Review of Systems Vital Signs Vitals Vital Signs Date Temp Pulse Resp B/P (MAP) Pulse Ox O2 O2 Flow FiO2 Time Delivery Rate 07/20/18 60 19 104/47 94 Mechanical 07:00 (66) Ventilator 12/23/18 55 05:30 07/20/18 98.0 04:00 Intake and Output 07/19/18 07/19/18 07/20/18 1515:00 23:00 07:00 IntakeIntake Total 838.5 ml 1025.913 ml 540.184 ml OutputOutput Total 420 ml 445 ml 410 ml BalanceBalance 418.5 ml 580.913 ml 130.184 ml Exam H EENT exam; supple neck, no JVD. No lymphadenopathy. Midline trachea. No thyromegaly. Orally intubated. Patient has a multiple carious teeth. No neck masses. Chest exam; diminished but clear breath sounds. S1-S2 audible, no murmurs. Regular rhythm. Abdomen exam; soft, no organomegaly. Bowel sounds audible. Extremity exam; no peripheral edema or clubbing. 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 PATIENCE MCDONNELL Jul 20, 2018 08:42
[2018-07-20] MEDS: FAMOTIDINE 20 MG INJ IV SCH ×2 (08:52→21:24)
[2018-07-20] MEDS: FINASTERIDE 5 MG TAB PO SCH (08:52)
[2018-07-20] MEDS: CEFEPIME 2GM/50 ML (PMX) 50 ML IVPB SCH ×2 (08:52→21:34)
[2018-07-20] MEDS: DONEPEZIL 5 MG TAB PO SCH (08:53)
[2018-07-20] MEDS: HYDROCHLOROTHIAZIDE 12.5 MG CAP PO SCH (08:53)
[2018-07-20] MEDS: BACLOFEN 10 MG TAB PO SCH ×2 (08:53→21:27)
[2018-07-20] MEDS: PANTOPRAZOLE (EC) 40 MG TAB PO SCH (08:53)
[2018-07-20] MEDS: NIFEdipine (XL) 30 MG TAB PO SCH ×2 (08:53→21:00)
[2018-07-20] MEDS: DOCUSATE SODIUM 100 MG CAP PO SCH (08:54)
[2018-07-20] MEDS: FLUTICASONE 0.05% 16 GM NAS SPRAY NASAL SCH (08:55)
[2018-07-20] MEDS: PREGABALIN 50 MG CAP PO SCH (08:58)
[2018-07-20] MEDS: ENOXAPARIN 30 MG/0.3 ML SYG SC SCH (09:01)
[2018-07-20] MEDS: LEVOFLOXACIN 250MG/D5W (PMX) 50 ML IVPB SCH (10:13)
--- NOTE | 2018-07-20 10:46 | PN ---
Date/Time of Note Date/Time of Note DATE: 07/20/18 TIME: 10:46 Assessment/Plan VTE Prophylaxis Risk score (from [facility] [place])>0 risk: 8 SCD applied (from [facility] [place]): Yes Pharmacological prophylaxis: LMWH Lines/Catheters IV Catheter Type ([facility]): Peripheral IV Assessment/Plan Hospital Course 1) pneumonia - IV antibiotics 2) respiratory failure - on ventilator support - monitor clinically Subjective 24 Hr Interval Summary Free Text/Dictation Patient sedated, on ventilator support Exam/Review of Systems Vital Signs Vitals Vital Signs Date Temp Pulse Resp B/P (MAP) Pulse Ox O2 O2 Flow FiO2 Time Delivery Rate 07/20/18 60 08:00 07/20/18 19 104/47 94 Mechanical 07:00 (66) Ventilator 07/20/18 55 05:30 07/20/18 98.0 04:00 Intake and Output 07/19/18 07/19/18 07/20/18 1515:00 23:00 07:00 IntakeIntake Total 838.5 ml 1025.913 ml 540.184 ml OutputOutput Total 420 ml 445 ml 410 ml BalanceBalance 418.5 ml 580.913 ml 130.184 ml Exam Constitutional: well developed Head: normocephalic, atraumatic Neck: supple Respiratory: diminished breath sounds Cardiovascular: regular rate and rhythm Gastrointestinal: soft, non-tender Extremities: normal pulses HARLEY STARR Jul 20, 2018 10:46
--- NOTE | 2018-07-20 17:42 | CONS ---
Date/Time of Note Date/Time of Note DATE: 07/20/18 TIME: 17:29 Assessment/Plan Assessment/Plan Additional Assessment/Plan .- ELEVATED URIC ACID - 9.0 - start on Allopurinol 1. Acute renal failure due to ATN from sepsis + prerenal azotemia 2. Sepsis due to PNA 3. Acute Hypoxemic respiratory failure due to PNA 4. H/o CAD s/p previous stent placement 5. h/o Pacemaker placement 6. H/o HTN 7. H/o HL 8. H/o Chronic back pain, Prostate CA Plan: -IVF NS at 100 cc/hr -Pt has MYKE due to ATN, ok to have PICC Line placement - BUN/Cr trended down to 61/1.20; baseline IV abx Levaquin and IV cefepime, Renally dose all abx and monitor electrolytes Urine studies including -Urine Na -131 -Urine Prot/cr ratio- 0.24 -Urine Eosinophils- -CK total- 21.0 - Uric acid- 9.0 Renal US to assess for CKD to hydronephrosis Thanks for consultation , we will continue to follow up Patient seen in collaboration with Dr Shirley Mari Consultation Date/Type/Reason Admit Date/Time Jul 18, 2018 at 16:57 Initial Consult Date 07/19/18 Type of Consult NEPHROLOGY Reason for Consultation - UREMIA Requesting Provider: HARLEY STARR 24 HR Interval Summary Free Text/Dictation - nad - elevated uric acid - comfortable on supplement oxygen - no new events reported last night Subjective hx not possible: pt non-verbal Constitutional: requiring O2 Exam/Review of Systems Vital Signs Vitals Vital Signs Date Temp Pulse Resp B/P (MAP) Pulse Ox O2 O2 Flow FiO2 Time Delivery Rate 07/20/18 60 16:00 07/20/18 20 108/48 99 Mechanical 14:00 (68) Ventilator 07/20/18 60 13:50 07/20/18 98.1 12:00 Intake and Output 07/19/18 07/19/18 07/20/18 1515:00 23:00 07:00 IntakeIntake Total 838.5 ml 1025.913 ml 540.184 ml OutputOutput Total 420 ml 445 ml 410 ml BalanceBalance 418.5 ml 580.913 ml 130.184 ml Exam Constitutional: non-verbal Psych: nl mood/affect Head: atraumatic Eyes: nl conjunctiva, nl lids, nl sclera ENMT: nl external ears & nose Neck: non-tender, other (ET tube intact) Respiratory: diminished breath sounds (bilaterally) Gastrointestinal: soft, other (gt intact) Musculoskeletal: muscle weakness Extremities: normal pulses Neurological: nl mental status, nl speech Skin: nl JENNIFER Grace Jul 20, 2018 17:40
[2018-07-20] MEDS: DOXAZOSIN 4 MG TAB PO SCH (21:00)
[2018-07-20] MEDS: DOCUSATE SODIUM 10 MG/ML (10ML CUP) GTB SCH (21:24)
[2018-07-20] MEDS: ATORVASTATIN 40 MG TAB PO SCH (21:24)
[2018-07-21] VITALS (41 sets, daily range): BP systolic 98–140; BP diastolic 44–56; PULSE 59–84; RESP 12–36
[2018-07-21] MEDS: PROPOFOL 100 ML IV SCH ×3 (05:25→20:58)
[2018-07-21] MEDS ORDERED: POTASSIUM CHLORIDE (SR) 20 MEQ TAB PO ONE ×2 (07:00→11:00)
--- NOTE | 2018-07-21 08:15 | CONS ---
Date/Time of Note Date/Time of Note DATE: 07/21/18 TIME: 08:12 Assessment/Plan Assessment/Plan Additional Assessment/Plan Ventilator setting; AC of 16, tidal volume 550, PEEP of 8, 50% FiO2. Patient is currently on propofol at 40 mics per kilogram per minute. Assessment recommendations; 1. Patient admitted with severe bilateral pneumonia causing respiratory failure. 2. History of cardiac arrhythmia. 3. Anemia and thrombus cytopenia. 4. Acute renal injury with improving renal function. 5. History of BPH. 6. History of muscle spasms. 7. Possibly restless leg syndrome. 8. Interval correction of metabolic acidosis. Continue current supportive care. Add fentanyl drip for better sedation. Obtain follow-up chest x-ray. Decrease tidal volume to 500 and PEEP to 5. 35 minutes of critical care time was spent evaluating the patient. Consultation Date/Type/Reason Admit Date/Time Jul 18, 2018 at 16:57 Initial Consult Date 07/19/18 Type of Consult Pulmonary/critical care History presenting any; patient is an 83-year-old male who was sent over to the hospital from physician's office because of severe shortness of breath. Patient has been diagnosed with bilateral pneumonia and has been admitted to ICU. By the time I saw him, patient is on BiPAP at high FiO2 with severe tachypnea. Chest x-ray was reviewed which is showing severe bilateral pneumonia. It was decided to electively intubate the patient. Past medical history; 1. Apparently mild chronic renal insufficiency. 2. Hypertension. 3. BPH. 4. Hyperlipidemia. 5. History of muscle spasm. Medications; reviewed. Allergies; none. Social history; non-smoker. Family history, occupational history not available. Review of system; unable to be obtained. Because of tachypnea. General exam; elderly male, on BiPAP, lethargic. Tachypneic. Requesting Provider: HARLEY STARR 24 HR Interval Summary Free Text/Dictation Patient's condition is critical. Still requiring fairly high FiO2. Patient also is agitated off and on. Patient however has remained hemodynamically stable. General exam; elderly male, orally intubated, sedated, currently no distress. Exam/Review of Systems Vital Signs Vitals Vital Signs Date Temp Pulse Resp B/P (MAP) Pulse Ox O2 O2 Flow FiO2 Time Delivery Rate 07/21/18 60 23 128/54 97 06:00 (78) 12/24/18 50 05:20 07/21/18 Mechanical 05:00 Ventilator 07/21/18 98.4 04:00 Intake and Output 07/20/18 07/20/18 07/21/18 1515:00 23:00 07:00 IntakeIntake Total 1059.6 ml 587.629 ml 416.749 ml OutputOutput Total 340 ml 435 ml 550 ml BalanceBalance 719.6 ml 152.629 ml -133.251 ml Exam H HEENT exam; supple neck, no JVD. No lymphadenopathy. Midline trachea. No thyromegaly. Patient has multiple carious teeth. Orally intubated. No neck masses. Pupils are small bilaterally. Chest exam; bilateral crackles more pronounced in left lung. S1-S2 audible, no murmurs. Paced rhythm. 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 Abdomen exam; soft, no organomegaly. Bowel sounds audible. Nondistended. Extremity exam; no peripheral edema or clubbing. RADIOTELEPHONE OPERATOR exam; patient is sedated. PATIENCE MCDONNELL Jul 21, 2018 08:15
[2018-07-21] MEDS: FLUTICASONE 0.05% 16 GM NAS SPRAY NASAL SCH (09:00)
[2018-07-21] MEDS: NIFEdipine (XL) 30 MG TAB PO SCH ×3 (09:00→20:15)
[2018-07-21] MEDS: FENTAnyl (DRIP) 1000 mcg/100mL 100 ML IV SCH (09:07)
[2018-07-21] MEDS: FINASTERIDE 5 MG TAB PO SCH (09:14)
[2018-07-21] MEDS: HYDROCHLOROTHIAZIDE 12.5 MG CAP PO SCH (09:14)
[2018-07-21] MEDS: DOCUSATE SODIUM 10 MG/ML (10ML CUP) GTB SCH ×2 (09:14→20:14)
[2018-07-21] MEDS: DONEPEZIL 5 MG TAB PO SCH (09:15)
[2018-07-21] MEDS: BACLOFEN 10 MG TAB PO SCH ×2 (09:15→20:15)
[2018-07-21] MEDS: ALLOPURINOL 100 MG TAB PO SCH (09:15)
[2018-07-21] MEDS: ENOXAPARIN 30 MG/0.3 ML SYG SC SCH (09:17)
[2018-07-21] MEDS: FAMOTIDINE 20 MG INJ IV SCH (09:32)
[2018-07-21] MEDS: CEFEPIME 2GM/50 ML (PMX) 50 ML IVPB SCH ×2 (09:32→20:13)
[2018-07-21] MEDS: PREGABALIN 50 MG CAP PO SCH (09:32)
[2018-07-21] MEDS: LEVOFLOXACIN 250MG/D5W (PMX) 50 ML IVPB SCH (10:23)
--- NOTE | 2018-07-21 10:46 | PN ---
Date/Time of Note Date/Time of Note DATE: 07/21/18 TIME: 10:45 Assessment/Plan VTE Prophylaxis Risk score (from Ns)>0 risk: 12 SCD applied (from Ns): Yes Pharmacological prophylaxis: LMWH Lines/Catheters IV Catheter Type (from Nrsg): PICC Line Central line still needed: Yes Urinary Cath still in place: Yes Reason Cath still needed: skin wounds contaminated by urine Assessment/Plan Hospital Course 1) pneumonia - IV antibiotics 2) respiratory failure - on ventilator support - monitor clinically Subjective 24 Hr Interval Summary Free Text/Dictation Patient is sedated, on ventilator Exam/Review of Systems Vital Signs Vitals Vital Signs Date Temp Pulse Resp B/P (MAP) Pulse Ox O2 O2 Flow FiO2 Time Delivery Rate 07/21/18 60 12 98/51 (67) Mechanical 10:00 Ventilator 07/21/18 97 09:00 07/21/18 50 08:00 07/21/18 98.4 04:00 Intake and Output 07/20/18 07/20/18 07/21/18 1515:00 23:00 07:00 IntakeIntake Total 1059.6 ml 587.629 ml 468.204 ml OutputOutput Total 340 ml 435 ml 600 ml BalanceBalance 719.6 ml 152.629 ml -131.796 ml Exam Constitutional: well developed Head: normocephalic, atraumatic Neck: supple Respiratory: diminished breath sounds Cardiovascular: regular rate and rhythm Gastrointestinal: soft, non-tender Extremities: normal pulses HARLEY STARR Jul 21, 2018 10:46
[2018-07-21] MEDS ORDERED: POTASSIUM CHLORIDE 20 MEQ POWDER FOR ORAL SOLN NGT ONE (11:00)
[2018-07-21] MEDS ORDERED: morphine LIQ (10 MG/5 ML) CUP PO PRN (11:00)
--- NOTE | 2018-07-21 15:26 | CONS ---
Date/Time of Note Date/Time of Note DATE: 07/21/18 TIME: 15:24 Assessment/Plan Assessment/Plan Additional Assessment/Plan .- ELEVATED URIC ACID - 9.0 - start on Allopurinol - Hyperglycemia- gt fush ; fu BMAP 1. Acute renal failure due to ATN from sepsis + prerenal azotemia 2. Sepsis due to PNA 3. Acute Hypoxemic respiratory failure due to PNA 4. H/o CAD s/p previous stent placement 5. h/o Pacemaker placement 6. H/o HTN 7. H/o HL 8. H/o Chronic back pain, Prostate CA Plan: -IVF NS at 100 cc/hr -Pt has MYKE due to ATN, ok to have PICC Line placement - BUN/Cr trended down to 61/1.20; baseline - UO - 1370 ML/24 hrs IV abx Levaquin and IV cefepime, Renally dose all abx and monitor electrolytes Urine studies including -Urine Na -131 -Urine Prot/cr ratio- 0.24 -Urine Eosinophils- -CK total- 21.0 - Uric acid- 9.0 Renal US to assess for CKD to hydronephrosis Thanks for consultation , we will continue to follow up Patient seen in collaboration with Dr Shirley Mari Consultation Date/Type/Reason Admit Date/Time Jul 18, 2018 at 16:57 Initial Consult Date 07/19/18 Type of Consult NEPHROLOGY Requesting Provider: HARLEY STARR 24 HR Interval Summary Free Text/Dictation - nad - afebrile - ET tube intact - BUN/Cr trended down to 61/1.20; baseline - UO - 1370 ML/24 hrs .- ELEVATED URIC ACID - 9.0- start on Allopurinol - Hyperglycemia- gt fush ; fu BMAP - no new issues reported overnight Subjective hx not possible: pt non-verbal Constitutional: requiring IVF, requiring O2 Exam/Review of Systems Vital Signs Vitals Vital Signs Date Temp Pulse Resp B/P (MAP) Pulse Ox O2 O2 Flow FiO2 Time Delivery Rate 07/21/18 99.3 60 17 127/52 97 14:30 (77) 07/21/18 Mechanical 14:00 Ventilator 07/21/18 50 08:00 Intake and Output 07/20/18 07/20/18 07/21/18 1414:59 22:59 06:59 IntakeIntake Total 1051.5 ml 670.729 ml 455.149 ml OutputOutput Total 350 ml 425 ml 600 ml BalanceBalance 701.5 ml 245.729 ml -144.851 ml Exam Constitutional: non-verbal Psych: nl mood/affect Head: atraumatic Eyes: nl lids, nl sclera ENMT: nl external ears & nose Neck: supple, other (ET tube intact) Respiratory: diminished breath sounds (bilaterally) Cardiovascular: nl pulses, other (s1s2) Gastrointestinal: soft Musculoskeletal: nl extremities to inspection, muscle weakness Extremities: normal pulses Neurological: unresponsive Skin: nl turgor Medications Medications Current Medications IV Flush (NS 3 ml) 3 ml PER PROTOCOL IV ; Start 07/18/18 at 17:30 Ondansetron HCl (Zofran Inj) 4 mg Q6H PRN IV NAUSEA AND/OR VOMITING; Start 07/18/18 at 17:30 Acetaminophen (Tylenol Tab) 650 mg Q6H PRN PO PAIN LEVEL 1-3 OR FEVER; Start 07/18/18 at 17:30 Enoxaparin Sodium (Lovenox) 30 mg DAILY SC Last administered on 07/21/18at 09:17; Admin Dose 30 MG; Start 07/19/18 at 09:00 Atorvastatin Calcium (Lipitor) 40 mg QHS PO Last administered on 07/20/18at 21:24; Admin Dose 40 MG; Start 07/18/18 at 21:00 Baclofen (Lioresal) 10 mg BID PO Last administered on 07/21/18at 09:15; Admin Dose 10 MG; Start 07/18/18 at 21:00 Docusate Sodium (Colace) 100 mg BID PRN PO CONSTIPATION; Start 07/18/18 at 17:30 Donepezil HCl (Aricept) 5 mg DAILY PO Last administered on 07/21/18at 09:15; Admin Dose 5 MG; Start 07/19/18 at 09:00 Doxazosin Mesylate (Cardura) 4 mg HS PO ; Start 07/18/18 at 21:00 Finasteride (Proscar) 5 mg DAILY PO Last administered on 07/21/18at 09:14; Admin Dose 5 MG; Start 07/19/18 at 09:00 Fluticasone Propionate (Flonase 0.05% Nasal) 1 spray DAILY NASAL ; Start at 09:00 Hydrochlorothiazide (Hydrochlorothiazide) 12.5 mg DAILY PO Last administered on 07/21/18 09:14; Admin Dose 12.5 MG; Start 07/19/18 at 09:00 Nifedipine (Procardia Xl) 30 mg BID PO ; Start 07/18/18 at 21:00 Cefepime HCl 50 ml @ 100 mls/hr Q12 IVPB Last administered on 07/21/18 09:32; Admin Dose 100 MLS/HR; Start 07/18/18 at 21:00 Lorazepam (Ativan) 1 mg Q4H PRN IV AGITATION Last administered on 07/18/18 23:26; Admin Dose 1 MG; Start 07/18/18 at 23:30 Haloperidol (Haldol) 5 mg Q2H PRN IM AGITATION Last administered on 07/19/18 02:37; Admin Dose 5 MG; Start 07/18/18 at 23:30 Levofloxacin/ Dextrose 50 ml @ 50 mls/hr Q24H IVPB Last administered on 07/21/18 10:23; Admin Dose 50 MLS/HR; Start 07/19/18 at 10:00 Pregabalin (Lyrica) 50 mg DAILY PO Last administered on 07/21/18 09:32; Admin Dose 50 MG; Start 07/19/18 at 13:00 Propofol 100 ml @ 1.909 mls/ hr Q12H IV Last administered on 07/21/18 11:48; Admin Dose 9.546 MLS/HR; Start 07/19/18 at 14:00 Allopurinol (Zyloprim) 100 mg DAILY PO Last administered on 07/21/18 09:15; Admin Dose 100 MG; Start 07/21/18 at 09:00 Docusate Sodium (Colace Liquid Cup) 100 mg BID GTB Last administered on 07/21/18 09:14; Admin Dose 100 MG; Start 07/20/18 at 21:00 Fentanyl 100 ml @ 2.5 mls/hr TITRATE IV Last administered on 07/21/18 09:07; Admin Dose 2.5 MLS/HR; Start 07/21/18 at 08:00 Famotidine (Pepcid) 20 mg Q12 PO ; Start 07/21/18 at 21:00 Morphine Sulfate (morphine) 6 mg Q4H PRN PO PAIN LEVEL 7-10; Start 07/21/18 at 11:00 JENNIFER RICHARD Jul 21, 2018 15:26
[2018-07-21] MEDS: ATORVASTATIN 40 MG TAB PO SCH (20:14)
[2018-07-21] MEDS: FAMOTIDINE 20 MG TAB PO SCH (20:14)
[2018-07-21] MEDS: DOXAZOSIN 4 MG TAB PO SCH (20:15)
[2018-07-22] VITALS (56 sets, daily range): BP systolic 92–174; BP diastolic 48–63; PULSE 60–78; RESP 13–22
[2018-07-22] MEDS: FENTAnyl (DRIP) 1000 mcg/100mL 100 ML IV SCH (04:16)
[2018-07-22] MEDS: PROPOFOL 100 ML IV SCH ×3 (04:48→20:58)
--- NOTE | 2018-07-22 08:34 | CONS ---
Date/Time of Note Date/Time of Note DATE: 07/22/18 TIME: 08:31 Assessment/Plan Assessment/Plan Additional Assessment/Plan Chest x-ray from yesterday late morning was reviewed which is showing improvement in right-sided pneumonia with persistent left upper lobe infiltrative changes. Ventilator setting; AC of 16, tidal volume 500, PEEP of 5, 40% FiO2. Patient is currently on propofol at 25 mics per kilogram per minute. Assessment and recommendations; 1. Patient admitted with severe bilateral pneumonia leading to respiratory failure requiring intubation. With improvement in oxygenation as well as radiological improvement. 2. Anemia and thrombocytopenia. 3. Improving renal function. 4. Likely history of restless leg syndrome. 5. BPH. 6. History of muscle spasms. 7. History of cardiac arrhythmia, status post pacemaker placement in the past. Continue current supportive care. Obtain follow-up chest x-ray 24 hours. I did have a detailed discussion with the patient's daughter at bedside and answered all her questions. If the patient continues to improve he will be given a sedation vacation tomorrow morning and will be assessed for possible weaning from ventilator. 35 minutes of critical care time was spent evaluating the patient. Consultation Date/Type/Reason Admit Date/Time Jul 18, 2018 at 16:57 Initial Consult Date 07/19/18 Type of Consult Pulmonary/critical care History presenting any; patient is an 83-year-old male who was sent over to the hospital from physician's office because of severe shortness of breath. Patient has been diagnosed with bilateral pneumonia and has been admitted to ICU. By the time I saw him, patient is on BiPAP at high FiO2 with severe tachypnea. Chest x-ray was reviewed which is showing severe bilateral pneumonia. It was decided to electively intubate the patient. Past medical history; 1. Apparently mild chronic renal insufficiency. 2. Hypertension. 3. BPH. 4. Hyperlipidemia. 5. History of muscle spasm. Medications; reviewed. Allergies; none. Social history; non-smoker. Family history, occupational history not available. Review of system; unable to be obtained. Because of tachypnea. General exam; elderly male, on BiPAP, lethargic. Tachypneic. Requesting Provider: HARLEY STARR 24 HR Interval Summary Free Text/Dictation Patient's condition remains critical. Still requiring full invasive mechanical ventilation. However there has been improvement in oxygenation status. Patient has remained hemodynamically stable. General exam; elderly male, orally intubated, sedated, currently in no distress. Exam/Review of Systems Vital Signs Vitals Vital Signs Date Temp Pulse Resp B/P (MAP) Pulse Ox O2 O2 Flow FiO2 Time Delivery Rate 07/22/18 61 08:00 07/22/18 19 129/54 97 Mechanical 06:00 (79) Ventilator 07/22/18 40 05:10 07/22/18 99.1 04:00 Intake and Output 07/21/18 07/21/18 07/22/18 1515:00 23:00 07:00 IntakeIntake Total 1140.122 ml 862.823 ml 676.6306 ml OutputOutput Total 325 ml 505 ml 490 ml BalanceBalance 815.122 ml 357.823 ml 186.6306 ml Exam H EENT exam; supple neck, no JVD. No lymphadenopathy. Midline trachea. No thyromegaly. Patient has a multiple carious teeth. Orally intubated. Orogastric tube in place. Chest exam; diminished breath sounds bilaterally. S1-S2 audible, no murmurs. Paced rhythm. 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 Abdomen exam; soft, no organomegaly. Bowel sounds audible. Nondistended. Extremity exam; no peripheral edema or clubbing. [employer] exam; patient is sedated. Medications Medications Current Medications IV Flush (NS 3 ml) 3 ml PER PROTOCOL IV ; Start 07/18/18 at 17:30 Ondansetron HCl (Zofran Inj) 4 mg Q6H PRN IV NAUSEA AND/OR VOMITING; Start 07/18/18 at 17:30 Acetaminophen (Tylenol Tab) 650 mg Q6H PRN PO PAIN LEVEL 1-3 OR FEVER; Start 07/18/18 at 17:30 Enoxaparin Sodium (Lovenox) 30 mg DAILY SC Last administered on 07/21/18at 09:17; Admin Dose 30 MG; Start 07/19/18 at 09:00 Atorvastatin Calcium (Lipitor) 40 mg QHS PO Last administered on 07/21/18at 20:14; Admin Dose 40 MG; Start 07/18/18 at 21:00 Baclofen (Lioresal) 10 mg BID PO Last administered on 07/21/18at 20:15; Admin Dose 10 MG; Start 07/18/18 at 21:00 Docusate Sodium (Colace) 100 mg BID PRN PO CONSTIPATION; Start 07/18/18 at 17:30 Donepezil HCl (Aricept) 5 mg DAILY PO Last administered on 07/21/18at 09:15; Admin Dose 5 MG; Start 07/19/18 at 09:00 Doxazosin Mesylate (Cardura) 4 mg HS PO ; Start 07/18/18 at 21:00 Finasteride (Proscar) 5 mg DAILY PO Last administered on 07/21/18at 09:14; Admin Dose 5 MG; Start 07/19/18 at 09:00 Fluticasone Propionate (Flonase 0.05% Nasal) 1 spray DAILY NASAL ; Start 07/19/18 at 09:00 Hydrochlorothiazide (Hydrochlorothiazide) 12.5 mg DAILY PO Last administered on 07/21/18at 09:14; Admin Dose 12.5 MG; Start 07/19/18 at 09:00 Nifedipine (Procardia Xl) 30 mg BID PO ; Start 07/18/18 at 21:00 Cefepime HCl 50 ml @ 100 mls/hr Q12 IVPB Last administered on 07/21/18at 20:13; Admin Dose 100 MLS/HR; Start 07/18/18 at 21:00 Lorazepam (Ativan) 1 mg Q4H PRN IV AGITATION Last administered on 07/18/18at 23:26; Admin Dose 1 MG; Start 07/18/18 at 23:30 Haloperidol (Haldol) 5 mg Q2H PRN IM AGITATION Last administered on 07/19/18at 02:37; Admin Dose 5 MG; Start 07/18/18 at 23:30 Levofloxacin/ Dextrose 50 ml @ 50 mls/hr Q24H IVPB Last administered on 07/21/18at 10:23; Admin Dose 50 MLS/HR; Start 07/19/18 at 10:00 Pregabalin (Lyrica) 50 mg DAILY PO Last administered on 07/21/18at 09:32; Admin Dose 50 MG; Start 07/19/18 at 13:00 Propofol 100 ml @ 1.909 mls/ hr Q12H IV Last administered on 07/22/18at 04:48; Admin Dose 9.546 MLS/HR; Start 12/22/18 at 14:00 Allopurinol (Zyloprim) 100 mg DAILY PO Last administered on 07/21/18at 09:15; Admin Dose 100 MG; Start 07/21/18 at 09:00 Docusate Sodium (Colace Liquid Cup) 100 mg BID GTB Last administered on 07/21/18at 20:14; Admin Dose 100 MG; Start 07/20/18 at 21:00 Fentanyl 100 ml @ 2.5 mls/hr TITRATE IV Last administered on 07/22/18at 04:16; Admin Dose 5 MLS/HR; Start 07/21/18 at 08:00 Famotidine (Pepcid) 20 mg Q12 PO Last administered on 07/21/18at 20:14; Admin Dose 20 MG; Start 07/21/18 at 21:00 Morphine Sulfate (morphine) 6 mg Q4H PRN PO PAIN LEVEL 7-10; Start 07/21/18 at 11:00 PATIENCE MCDONNELL Jul 22, 2018 08:34
[2018-07-22] MEDS: FLUTICASONE 0.05% 16 GM NAS SPRAY NASAL SCH (09:00)
[2018-07-22] MEDS: NIFEdipine (XL) 30 MG TAB PO SCH ×2 (09:00→20:59)
[2018-07-22] MEDS: CEFEPIME 2GM/50 ML (PMX) 50 ML IVPB SCH ×2 (09:17→20:58)
[2018-07-22] MEDS: ALLOPURINOL 100 MG TAB PO SCH (09:19)
[2018-07-22] MEDS: DONEPEZIL 5 MG TAB PO SCH (09:19)
[2018-07-22] MEDS: BACLOFEN 10 MG TAB PO SCH ×2 (09:19→20:58)
[2018-07-22] MEDS: DOCUSATE SODIUM 10 MG/ML (10ML CUP) GTB SCH ×2 (09:19→20:58)
[2018-07-22] MEDS: FINASTERIDE 5 MG TAB PO SCH (09:19)
[2018-07-22] MEDS: HYDROCHLOROTHIAZIDE 12.5 MG CAP PO SCH (09:19)
[2018-07-22] MEDS: FAMOTIDINE 20 MG TAB PO SCH ×2 (09:19→20:58)
[2018-07-22] MEDS: ENOXAPARIN 30 MG/0.3 ML SYG SC SCH (09:21)
[2018-07-22] MEDS: PREGABALIN 50 MG CAP PO SCH (09:22)
[2018-07-22] MEDS: LEVOFLOXACIN 250MG/D5W (PMX) 50 ML IVPB SCH (10:07)
--- NOTE | 2018-07-22 11:18 | PN ---
Date/Time of Note Date/Time of Note DATE: 07/22/18 TIME: 11:18 Assessment/Plan VTE Prophylaxis Risk score (from Ns)>0 risk: 11 SCD applied (from Ns): Yes Pharmacological prophylaxis: LMWH Lines/Catheters IV Catheter Type (from Nrs): Peripheral IV Urinary Cath still in place: Yes Reason Cath still needed: skin wounds contaminated by urine Assessment/Plan Hospital Course 1) pneumonia - IV antibiotics 2) respiratory failure - on ventilator support - monitor clinically Result Diagram: 07/22/18 0430 07/22/18 0430 Results 24hrs Laboratory Tests Test 07/22/18 04:30 07/22/18 04:59 White Blood Count 7.2 Red Blood Count 2.45 L Hemoglobin 7.8 L Hematocrit 23.7 L Mean Corpuscular Volume 96.7 Mean Corpuscular Hemoglobin 31.8 Mean Corpuscular Hemoglobin Concent 32.9 Red Cell Distribution Width 14.1 Platelet Count 189 Mean Platelet Volume 11.1 H Immature Granulocytes % 2.200 H Neutrophils % 81.0 H Lymphocytes % 7.3 L Monocytes % 5.6 Eosinophils % 3.5 Basophils % 0.4 Nucleated Red Blood Cells % 0.4 H Immature Granulocytes # 0.160 H Neutrophils # 5.8 Lymphocytes # 0.5 L Monocytes # 0.4 Eosinophils # 0.3 Basophils # 0.0 Nucleated Red Blood Cells # 0.0 Sodium Level 151 H Potassium Level 4.0 Chloride Level 119 H Carbon Dioxide Level 24 Anion Gap 8 Blood Urea Nitrogen 50 H Creatinine 1.14 Est Glomerular Filtrat Rate mL/min Glucose Level 153 Calcium Level 8.1 L Total Bilirubin 0.0 L Direct Bilirubin 0.00 Indirect Bilirubin 0.0 Aspartate Amino Transf (AST/SGOT) 47 H Alanine Aminotransferase (ALT/SGPT) 31 Alkaline Phosphatase 90 Total Protein 5.0 L Albumin 2.4 L Globulin 2.60 Albumin/Globulin Ratio 0.92 Lab Scanned Report BLOOD TRANSFUSION Subjective 24 Hr Interval Summary Free Text/Dictation Patient sedated, on ventilator Exam/Review of Systems Vital Signs Vitals Vital Signs Date Temp Pulse Resp B/P (MAP) Pulse Ox O2 O2 Flow FiO2 Time Delivery Rate 07/22/18 60 21 151/55 97 Mechanical 10:00 (87) Ventilator 07/22/18 98.3 08:00 07/22/18 40 05:10 Intake and Output 07/21/18 07/21/18 07/22/18 1515:00 23:00 07:00 IntakeIntake Total 1140.122 ml 862.823 ml 736.6306 ml OutputOutput Total 325 ml 505 ml 565 ml BalanceBalance 815.122 ml 357.823 ml 171.6306 ml Exam Constitutional: well developed Head: normocephalic, atraumatic Neck: supple Respiratory: diminished breath sounds Cardiovascular: regular rate and rhythm Gastrointestinal: soft, non-tender Extremities: normal pulses Medications Medications Current Medications IV Flush (NS 3 ml) 3 ml PER PROTOCOL IV ; Start 07/18/18 at 17:30 Ondansetron HCl (Zofran Inj) 4 mg Q6H PRN IV NAUSEA AND/OR VOMITING; Start 07/18/18 at 17:30 Acetaminophen (Tylenol Tab) 650 mg Q6H PRN PO PAIN LEVEL 1-3 OR FEVER; Start 07/18/18 at 17:30 Enoxaparin Sodium (Lovenox) 30 mg DAILY SC Last administered on 07/22/18at 09:21; Admin Dose 30 MG; Start 07/19/18 at 09:00 Atorvastatin Calcium (Lipitor) 40 mg QHS PO Last administered on 07/21/18at 20:14; Admin Dose 40 MG; Start 07/18/18 at 21:00 Baclofen (Lioresal) 10 mg BID PO Last administered on 07/22/18at 09:19; Admin Dose 10 MG; Start 07/18/18 at 21:00 Docusate Sodium (Colace) 100 mg BID PRN PO CONSTIPATION; Start 07/18/18 at 17:30 Donepezil HCl (Aricept) 5 mg DAILY PO Last administered on 07/22/18at 09:19; Admin Dose 5 MG; Start 07/19/18 at 09:00 Doxazosin Mesylate (Cardura) 4 mg HS PO ; Start 07/18/18 at 21:00 Finasteride (Proscar) 5 mg DAILY PO Last administered on 07/22/18at 09:19; Admin Dose 5 MG; Start 07/19/18 at 09:00 Fluticasone Propionate (Flonase 0.05% Nasal) 1 spray DAILY NASAL ; Start 07/19/18 at 09:00 Hydrochlorothiazide (Hydrochlorothiazide) 12.5 mg DAILY PO Last administered on 07/22/18 09:19; Admin Dose 12.5 MG; Start 07/19/18 at 09:00 Nifedipine (Procardia Xl) 30 mg BID PO ; Start 07/18/18 at 21:00 Cefepime HCl 50 ml @ 100 mls/hr Q12 IVPB Last administered on 07/22/18 09:17; Admin Dose 100 MLS/HR; Start 07/18/18 at 21:00 Lorazepam (Ativan) 1 mg Q4H PRN IV AGITATION Last administered on 07/18/18 23:26; Admin Dose 1 MG; Start 07/18/18 at 23:30 Haloperidol (Haldol) 5 mg Q2H PRN IM AGITATION Last administered on 07/19/18 02:37; Admin Dose 5 MG; Start 07/18/18 at 23:30 Levofloxacin/ Dextrose 50 ml @ 50 mls/hr Q24H IVPB Last administered on 07/22/18 10:07; Admin Dose 50 MLS/HR; Start 07/19/18 at 10:00 Pregabalin (Lyrica) 50 mg DAILY PO Last administered on 07/22/18 09:22; Admin Dose 50 MG; Start 07/19/18 at 13:00 Propofol 100 ml @ 1.909 mls/ hr Q12H IV Last administered on 07/22/18 04:48; Admin Dose 9.546 MLS/HR; Start 07/19/18 at 14:00 Allopurinol (Zyloprim) 100 mg DAILY PO Last administered on 07/22/18 09:19; Admin Dose 100 MG; Start 07/21/18 at 09:00 Docusate Sodium (Colace Liquid Cup) 100 mg BID GTB Last administered on 07/22/18 09:19; Admin Dose 100 MG; Start 07/20/18 at 21:00 Fentanyl 100 ml @ 2.5 mls/hr TITRATE IV Last administered on 07/22/18 04:16; Admin Dose 5 MLS/HR; Start 07/21/18 at 08:00 Famotidine (Pepcid) 20 mg Q12 PO Last administered on 07/22/18 09:19; Admin Dose 20 MG; Start 07/21/18 at 21:00 Morphine Sulfate (morphine) 6 mg Q4H PRN PO PAIN LEVEL 7-10; Start 07/21/18 at 11:00 HARLEY STARR Jul 22, 2018 11:18
[2018-07-22] MEDS ORDERED: DEXTROSE 5% 1,000 ML IV SCH (15:30)
--- NOTE | 2018-07-22 15:30 | CONS ---
Date/Time of Note Date/Time of Note DATE: 07/22/18 TIME: 15:22 Assessment/Plan Assessment/Plan Additional Assessment/Plan - Hypernatremia- d5w 50 cc/hr; monitor BMP am .- ELEVATED URIC ACID - 9.0 - start on Allopurinol 1. Acute renal failure due to ATN from sepsis + prerenal azotemia 2. Sepsis due to PNA 3. Acute Hypoxemic respiratory failure due to PNA 4. H/o CAD s/p previous stent placement 5. h/o Pacemaker placement 6. H/o HTN 7. H/o HL 8. H/o Chronic back pain, Prostate CA Plan: -IVFD5 w -Pt has MYKE due to ATN, ok to have PICC Line placement - BUN/Cr trended down to 61/1.20; baseline IV abx Levaquin and IV cefepime, Renally dose all abx and monitor electrolytes Urine studies including -Urine Na -131 -Urine Prot/cr ratio- 0.24 -Urine Eosinophils- -CK total- 21.0 - Uric acid- 9.0 Renal US to assess for CKD to hydronephrosis Thanks for consultation , we will continue to follow up Patient seen in collaboration with Dr Shirley Mari Consultation Date/Type/Reason Admit Date/Time Jul 18, 2018 at 16:57 Initial Consult Date 07/19/18 Type of Consult NEPHROLOGY Requesting Provider: HARLYE STARR 24 HR Interval Summary Free Text/Dictation On Propofol 40 mcg - Fentanyl 50 mcg - Na 151- on Gt flush 100 cc Q6hrs - dw staff Subjective hx not possible: pt non-verbal Constitutional: requiring IVF, requiring O2 Exam/Review of Systems Vital Signs Vitals Vital Signs Date Temp Pulse Resp B/P (MAP) Pulse Ox O2 O2 Flow FiO2 Time Delivery Rate 07/22/18 66 17 114/48 95 Mechanical 13:30 (70) Ventilator 07/22/18 99.8 12:00 07/22/18 40 11:20 Intake and Output 07/21/18 07/21/18 07/22/18 1515:00 23:00 07:00 IntakeIntake Total 1140.122 ml 862.823 ml 751.1766 ml OutputOutput Total 325 ml 505 ml 565 ml BalanceBalance 815.122 ml 357.823 ml 186.1766 ml Exam Constitutional: non-verbal, frail Psych: nl mood/affect Respiratory: diminished breath sounds Medications Medications Current Medications IV Flush (NS 3 ml) 3 ml PER PROTOCOL IV ; Start 07/18/18 at 17:30 Ondansetron HCl (Zofran Inj) 4 mg Q6H PRN IV NAUSEA AND/OR VOMITING; Start 07/18/18 at 17:30 Acetaminophen (Tylenol Tab) 650 mg Q6H PRN PO PAIN LEVEL 1-3 OR FEVER; Start 07/18/18 at 17:30 Enoxaparin Sodium (Lovenox) 30 mg DAILY SC Last administered on 07/22/18 09:21; Admin Dose 30 MG; Start 07/19/18 at 09:00 Atorvastatin Calcium (Lipitor) 40 mg QHS PO Last administered on 07/21/18at 20:14; Admin Dose 40 MG; Start 07/18/18 at 21:00 Baclofen (Lioresal) 10 mg BID PO Last administered on 07/22/18 09:19; Admin Dose 10 MG; Start 07/18/18 at 21:00 Docusate Sodium (Colace) 100 mg BID PRN PO CONSTIPATION; Start 07/18/18 at 17:30 Donepezil HCl (Aricept) 5 mg DAILY PO Last administered on 07/22/18 09:19; Admin Dose 5 MG; Start 07/19/18 at 09:00 Doxazosin Mesylate (Cardura) 4 mg HS PO ; Start 07/18/18 at 21:00 Finasteride (Proscar) 5 mg DAILY PO Last administered on 07/22/18 09:19; Admin Dose 5 MG; Start 07/19/18 at 09:00 Fluticasone Propionate (Flonase 0.05% Nasal) 1 spray DAILY NASAL ; Start 07/19/18 at 09:00 Hydrochlorothiazide (Hydrochlorothiazide) 12.5 mg DAILY PO Last administered on 07/22/18 09:19; Admin Dose 12.5 MG; Start 07/19/18 at 09:00 Nifedipine (Procardia Xl) 30 mg BID PO ; Start 07/18/18 at 21:00 Cefepime HCl 50 ml @ 100 mls/hr Q12 IVPB Last administered on 07/22/18at 09:1 7; Admin Dose 100 MLS/HR; Start 07/18/18 at 21:00 Lorazepam (Ativan) 1 mg Q4H PRN IV AGITATION Last administered on 07/18/18 23:26; Admin Dose 1 MG; Start 07/18/18 at 23:30 Haloperidol (Haldol) 5 mg Q2H PRN IM AGITATION Last administered on 07/19/18 02:37; Admin Dose 5 MG; Start 07/18/18 at 23:30 Levofloxacin/ Dextrose 50 ml @ 50 mls/hr Q24H IVPB Last administered on 06/29 10:07; Admin Dose 50 MLS/HR; Start 07/19/18 at 10:00 Pregabalin (Lyrica) 50 mg DAILY PO Last administered on 07/22/18 09:22; Admin Dose 50 MG; Start 07/19/18 at 13:00 Propofol 100 ml @ 1.909 mls/ hr Q12H IV Last administered on 07/22/18 13:27; Admin Dose 15.274 MLS/HR; Start 07/19/18 at 14:00 Allopurinol (Zyloprim) 100 mg DAILY PO Last administered on 07/22/18 09:19; Admin Dose 100 MG; Start 07/21/18 at 09:00 Docusate Sodium (Colace Liquid Cup) 100 mg BID GTB Last administered on 07/22 09:19; Admin Dose 100 MG; Start 07/20/18 at 21:00 Fentanyl 100 ml @ 2.5 mls/hr TITRATE IV Last administered on 07/22/18 04:16; Admin Dose 5 MLS/HR; Start 07/21/18 at 08:00 Famotidine (Pepcid) 20 mg Q12 PO Last administered on 07/22/18 09:19; Admin Dose 20 MG; Start 07/21/18 at 21:00 Morphine Sulfate (morphine) 6 mg Q4H PRN PO PAIN LEVEL 7-10; Start 07/21/18 at 11:00 JENNIFER RICHADR Jul 22, 2018 15:30
[2018-07-22] MEDS: DOXAZOSIN 4 MG TAB PO SCH (20:59)
[2018-07-22] MEDS: ATORVASTATIN 40 MG TAB PO SCH (20:59)
[2018-07-23] VITALS (34 sets, daily range): BP systolic 88–130; BP diastolic 44–57; PULSE 60–66; RESP 14–40
[2018-07-23] MEDS: FENTAnyl (DRIP) 1000 mcg/100mL 100 ML IV SCH ×2 (00:55→22:15)
[2018-07-23] MEDS: PROPOFOL 100 ML IV SCH ×2 (05:30→12:32)
--- NOTE | 2018-07-23 08:43 | CONS ---
Date/Time of Note Date/Time of Note DATE: 07/23/18 TIME: 08:41 Consult Date/Type/Reason Admit Date/Time Jul 18, 2018 at 16:57 Initial Consult Date 07/19/18 Type of Consult Pulmonary Requesting Provider: HARLEY STARR Subjective Patient's condition remains critical. Patient however has remained hemodynamically stable. General exam; elderly male, orally intubated, sedated, currently in no distress. Objective Vital Signs Date Temp Pulse Resp B/P (MAP) Pulse Ox O2 O2 Flow FiO2 Time Delivery Rate 07/23/18 60 16 104/54 94 Mechanical 06:00 (71) Ventilator 07/23/18 50 05:21 07/23/18 99.1 04:00 Intake and Output 07/22/18 07/22/18 07/23/18 1515:00 23:00 07:00 IntakeIntake Total 780.734 ml 1145.642 ml 1085.184 ml OutputOutput Total 450 ml 450 ml 270 ml BalanceBalance 330.734 ml 695.642 ml 815.184 ml Exam H EENT exam; supple neck, no JVD. No lymphadenopathy. Midline trachea. No thyromegaly. Patient has carious teeth. No neck masses. Orally intubated. Chest exam; diminished but clear breath sounds. S1-S2 audible, no murmurs. 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 Paced rhythm. Abdomen exam; soft, no organomegaly. Bowel sounds audible. Extremity exam; no peripheral edema. [employer] exam; patient is sedated. Vent Setting Ventilator Support Mode: AC Fraction of Inspired Oxygen pe: 50 Positive End Expiratory Pressu: 5.0 Results/Medications Result Diagram: 07/23/18 0430 07/23/18 0430 Results 24 hrs Laboratory Tests Test 07/23/18 04:30 07/23/18 07:00 White Blood Count 10.3 # Red Blood Count 2.50 L Hemoglobin 7.9 L Hematocrit 25.1 L Mean Corpuscular Volume 100.4 Mean Corpuscular Hemoglobin 31.6 Mean Corpuscular Hemoglobin Concent 31.5 L Red Cell Distribution Width 14.5 Platelet Count 171 Mean Platelet Volume 11.1 H Immature Granulocytes % 1.300 H Neutrophils % 86.7 H Lymphocytes % 6.1 L Monocytes % 4.0 Eosinophils % 1.7 Basophils % 0.2 Nucleated Red Blood Cells % 0.3 H Immature Granulocytes # 0.130 H Neutrophils # 8.9 H Lymphocytes # 0.6 L Monocytes # 0.4 Eosinophils # 0.2 Basophils # 0.0 Nucleated Red Blood Cells # 0.0 Sodium Level 148 H Potassium Level 4.7 Chloride Level 118 H Carbon Dioxide Level 24 Anion Gap 6 Blood Urea Nitrogen 51 H Creatinine 1.18 Est Glomerular Filtrat Rate mL/min Glucose Level 153 Calcium Level 8.0 L Blood Gas Specimen Source Blood arterial Arterial Blood Date Drawn 07/23/2018 7:00:11 AM Arterial Blood pH (Temp corrected) 7.307 L Arterial Blood pCO2 (Temp correct) 49.0 H Arterial Blood pO2 (Temp corrected) 75.1 L Arterial Blood HCO3 24.0 Arterial Blood Base Excess -2.4 Arterial Blood Oxygen Saturation 93.8 L Margarito Test ACCEPTAB Arterial Blood Gas Puncture Site Right Radial Arterial Blood Carboxyhemoglobin 0.3 Arterial Blood Methemoglobin 0.4 Blood Gas A-a O2 Differential 226.3 H Oxyhemoglobin Percent 93.1 Blood Gas Temperature 37.0 Blood Gas Respiration Rate 16.0 Blood Gas Actual Respiration Rate 16 Blood Gas Modality VENT - AC FiO2 50.0 Blood Gas Tidal Volume 500.0 Blood Gas Low PEEP Setting 5.0 Blood Gas Notified Whom TM Blood Gas Notified Time 07/23/2018 7:15:08 AM Medications Current Medications IV Flush (NS 3 ml) 3 ml PER PROTOCOL IV ; Start 07/18/18 at 17:30 Ondansetron HCl (Zofran Inj) 4 mg Q6H PRN IV NAUSEA AND/OR VOMITING; Start 07/18/18 at 17:30 Acetaminophen (Tylenol Tab) 650 mg Q6H PRN PO PAIN LEVEL 1-3 OR FEVER; Start 07/18/18 at 17:30 Enoxaparin Sodium (Lovenox) 30 mg DAILY SC Last administered on 07/22/18at 09:21; Admin Dose 30 MG; Start 07/19/18 at 09:00 Atorvastatin Calcium (Lipitor) 40 mg QHS PO Last administered on 07/22/18at 20:59; Admin Dose 40 MG; Start 07/18/18 at 21:00 Baclofen (Lioresal) 10 mg BID PO Last administered on 07/22/18at 20:58; Admin Dose 10 MG; Start 07/18/18 at 21:00 Docusate Sodium (Colace) 100 mg BID PRN PO CONSTIPATION; Start 07/18/18 at 17:30 Donepezil HCl (Aricept) 5 mg DAILY PO Last administered on 07/22/18 09:19; Admin Dose 5 MG; Start 07/19/18 at 09:00 Doxazosin Mesylate (Cardura) 4 mg HS PO ; Start 07/18/18 at 21:00 Finasteride (Proscar) 5 mg DAILY PO Last administered on 07/22/18 09:19; Admin Dose 5 MG; Start 07/19/18 at 09:00 Fluticasone Propionate (Flonase 0.05% Nasal) 1 spray DAILY NASAL ; Start 07/19/18 at 09:00 Hydrochlorothiazide (Hydrochlorothiazide) 12.5 mg DAILY PO Last administered on 07/22/18 09:19; Admin Dose 12.5 MG; Start 07/19/18 at 09:00 Nifedipine (Procardia Xl) 30 mg BID PO ; Start 07/18/18 at 21:00 Cefepime HCl 50 ml @ 100 mls/hr Q12 IVPB Last administered on 07/22/18at 20:58; Admin Dose 100 MLS/HR; Start 07/18/18 at 21:00 Lorazepam (Ativan) 1 mg Q4H PRN IV AGITATION Last administered on 07/18/18at 23:26; Admin Dose 1 MG; Start 07/18/18 at 23:30 Haloperidol (Haldol) 5 mg Q2H PRN IM AGITATION Last administered on 07/19/18at 02:37; Admin Dose 5 MG; Start 07/18/18 at 23:30 Levofloxacin/ Dextrose 50 ml @ 50 mls/hr Q24H IVPB Last administered on 07/22/18at 10:07; Admin Dose 50 MLS/HR; Start 07/19/18 at 10:00 Pregabalin (Lyrica) 50 mg DAILY PO Last administered on 07/22/18 09:22; Admin Dose 50 MG; Start 07/19/18 at 13:00 Propofol 100 ml @ 1.909 mls/ hr Q12H IV Last administered on 07/23/18 05:30; Admin Dose 13.364 MLS/HR; Start 07/19/18 at 14:00 Allopurinol (Zyloprim) 100 mg DAILY PO Last administered on 07/22/18 09:19; Admin Dose 100 MG; Start 07/21/18 at 09:00 Docusate Sodium (Colace Liquid Cup) 100 mg BID GTB Last administered on 07/22/18at 20:58; Admin Dose 100 MG; Start 07/20/18 at 21:00 Fentanyl 100 ml @ 2.5 mls/hr TITRATE IV Last administered on 07/23/18at 00:55; Admin Dose 5 MLS/HR; Start 07/21/18 at 08:00 Famotidine (Pepcid) 20 mg Q12 PO Last administered on 07/22/18 20:58; Admin Dose 20 MG; Start 07/21/18 at 21:00 Morphine Sulfate (morphine) 6 mg Q4H PRN PO PAIN LEVEL 7-10; Start 07/21/18 at 11:00 Dextrose 1,000 ml @ 50 mls/hr Q20H IV Last administered on 07/22/18at 15:44; Admin Dose 50 MLS/HR; Start 07/22/18 at 15:30; Stop 07/23/18 at 11:29 Assessment/Plan Additional Assessment/Plan Ventilator setting; AC of 16, tidal volume 500, PEEP of 5, 50% FiO2. Chest x-ray showing bilateral infiltrative changes. Patient is currently on propofol at 30 mics per kilogram per minute, fentanyl 50 mics per hour. Assessment recommendations; 1. Patient admitted for severe bilateral pneumonia requiring intubation. 2. History of cardiac arrhythmia, status post pacemaker placement in the past. 3. Mild anemia and thrombocytopenia. 4. Likely underlying restless leg syndrome. 5. History of muscle spasms. Continue current supportive care. Obtain follow-up ABG. Add vancomycin to cur rent antimicrobial regimen. Obtain follow-up chest x-ray in 24 hours as well. 35 minutes of critical care time was spent evaluating patient. PATIENCE MCDONNELL Jul 23, 2018 08:43
[2018-07-23] MEDS: DONEPEZIL 5 MG TAB PO SCH (08:48)
[2018-07-23] MEDS: CEFEPIME 2GM/50 ML (PMX) 50 ML IVPB SCH ×2 (08:48→20:48)
[2018-07-23] MEDS: FINASTERIDE 5 MG TAB PO SCH (08:49)
[2018-07-23] MEDS: HYDROCHLOROTHIAZIDE 12.5 MG CAP PO SCH (08:49)
[2018-07-23] MEDS: ALLOPURINOL 100 MG TAB PO SCH (08:49)
[2018-07-23] MEDS: FAMOTIDINE 20 MG TAB PO SCH ×2 (08:49→20:49)
[2018-07-23] MEDS: PREGABALIN 50 MG CAP PO SCH (08:49)
[2018-07-23] MEDS: BACLOFEN 10 MG TAB PO SCH ×2 (08:49→20:49)
[2018-07-23] MEDS: ENOXAPARIN 30 MG/0.3 ML SYG SC SCH (09:00)
[2018-07-23] MEDS: NIFEdipine (XL) 30 MG TAB PO SCH (09:00)
[2018-07-23] MEDS ORDERED: VANCOMYCIN IV PER PHARMACY XX SCH (09:00)
[2018-07-23] MEDS: DOCUSATE SODIUM 10 MG/ML (10ML CUP) GTB SCH ×2 (09:26→20:48)
[2018-07-23] MEDS ORDERED: VANCOMYCIN 1.25 GM in SOD CHLORIDE 0.9% 250 ML IVPB SCH (10:00)
[2018-07-23] MEDS: LEVOFLOXACIN 250MG/D5W (PMX) 50 ML IVPB SCH (10:52)
--- NOTE | 2018-07-23 11:21 | PN ---
Date/Time of Note Date/Time of Note DATE: 07/23/18 TIME: 11:20 Assessment/Plan VTE Prophylaxis Risk score (from Ns)>0 risk: 8 SCD applied (from Ns): Yes Pharmacological prophylaxis: LMWH Lines/Catheters IV Catheter Type (from Nrs): PICC Line Central line still needed: Yes Urinary Cath still in place: Yes Reason Cath still needed: skin wounds contaminated by urine Assessment/Plan Hospital Course 1) pneumonia - IV antibiotics 2) respiratory failure - on ventilator support - monitor clinically Result Diagram: 07/23/18 0430 07/23/18 0430 Results 24hrs Laboratory Tests Test 07/23/18 04:30 07/23/18 07:00 White Blood Count 10.3 # Red Blood Count 2.50 L Hemoglobin 7.9 L Hematocrit 25.1 L Mean Corpuscular Volume 100.4 Mean Corpuscular Hemoglobin 31.6 Mean Corpuscular Hemoglobin Concent 31.5 L Red Cell Distribution Width 14.5 Platelet Count 171 Mean Platelet Volume 11.1 H Immature Granulocytes % 1.300 H Neutrophils % 86.7 H Lymphocytes % 6.1 L Monocytes % 4.0 Eosinophils % 1.7 Basophils % 0.2 Nucleated Red Blood Cells % 0.3 H Immature Granulocytes # 0.130 H Neutrophils # 8.9 H Lymphocytes # 0.6 L Monocytes # 0.4 Eosinophils # 0.2 Basophils # 0.0 Nucleated Red Blood Cells # 0.0 Sodium Level 148 H Potassium Level 4.7 Chloride Level 118 H Carbon Dioxide Level 24 Anion Gap 6 Blood Urea Nitrogen 51 H Creatinine 1.18 Est Glomerular Filtrat Rate mL/min Glucose Level 153 Calcium Level 8.0 L Blood Gas Specimen Source Blood arterial Arterial Blood Date Drawn 07/23/2018 7:00:11 AM Arterial Blood pH (Temp corrected) 7.307 L Arterial Blood pCO2 (Temp correct) 49.0 H Arterial Blood pO2 (Temp corrected) 75.1 L Arterial Blood HCO3 24.0 Arterial Blood Base Excess -2.4 Arterial Blood Oxygen Saturation 93.8 L Margarito Test ACCEPTAB Arterial Blood Gas Puncture Site Right Radial Arterial Blood Carboxyhemoglobin 0.3 Arterial Blood Methemoglobin 0.4 Blood Gas A-a O2 Differential 226.3 H Oxyhemoglobin Percent 93.1 Blood Gas Temperature 37.0 Blood Gas Respiration Rate 16.0 Blood Gas Actual Respiration Rate 16 Blood Gas Modality VENT - AC FiO2 50.0 Blood Gas Tidal Volume 500.0 Blood Gas Low PEEP Setting 5.0 Blood Gas Notified Whom TM Blood Gas Notified Time 07/23/2018 7:15:08 AM Subjective 24 Hr Interval Summary Free Text/Dictation Patient remain sedated and intubated Exam/Review of Systems Vital Signs Vitals Vital Signs Date Temp Pulse Resp B/P (MAP) Pulse Ox O2 O2 Flow FiO2 Time Delivery Rate 07/23/18 60 16 102/51 94 Mechanical 11:00 (68) Ventilator 07/23/18 98.7 08:00 07/23/18 50 05:21 Intake and Output 07/22/18 07/22/18 07/23/18 1515:00 23:00 07:00 IntakeIntake Total 780.734 ml 1145.642 ml 1085.184 ml OutputOutput Total 450 ml 450 ml 270 ml BalanceBalance 330.734 ml 695.642 ml 815.184 ml Exam Constitutional: well developed Head: normocephalic, atraumatic Neck: supple Respiratory: diminished breath sounds Cardiovascular: regular rate and rhythm Gastrointestinal: soft, non-tender Extremities: normal pulses Medications Medications Current Medications IV Flush (NS 3 ml) 3 ml PER PROTOCOL IV ; Start 07/18/18 at 17:30 Ondansetron HCl (Zofran Inj) 4 mg Q6H PRN IV NAUSEA AND/OR VOMITING; Start 07/18/18 at 17:30 Acetaminophen (Tylenol Tab) 650 mg Q6H PRN PO PAIN LEVEL 1-3 OR FEVER; Start 07/18/18 at 17:30 Enoxaparin Sodium (Lovenox) 30 mg DAILY SC Last administered on 07/23/18at 09:00; Admin Dose 30 MG; Start 07/19/18 at 09:00 Atorvastatin Calcium (Lipitor) 40 mg QHS PO Last administered on 07/22/18at 20:59; Admin Dose 40 MG; Start 07/18/18 at 21:00 Baclofen (Lioresal) 10 mg BID PO Last administered on 07/23/18at 08:49; Admin Dose 10 MG; Start 07/18/18 at 21:00 Docusate Sodium (Colace) 100 mg BID PRN PO CONSTIPATION; Start 07/18/18 at 17:30 Donepezil HCl (Aricept) 5 mg DAILY PO Last administered on 07/23/18 08:48; Admin Dose 5 MG; Start 07/19/18 at 09:00 Doxazosin Mesylate (Cardura) 4 mg HS PO ; Start 07/18/18 at 21:00 Finasteride (Proscar) 5 mg DAILY PO Last administered on 07/23/18 08:49; Admin Dose 5 MG; Start 07/19/18 at 09:00 Fluticasone Propionate (Flonase 0.05% Nasal) 1 spray DAILY NASAL ; Start 07/19/18 at 09:00 Hydrochlorothiazide (Hydrochlorothiazide) 12.5 mg DAILY PO Last administered on 07/23/18 08:49; Admin Dose 12.5 MG; Start 07/19/18 at 09:00 Nifedipine (Procardia Xl) 30 mg BID PO ; Start 07/18/18 at 21:00 Cefepime HCl 50 ml @ 100 mls/hr Q12 IVPB Last administered on 07/23/18 08:48; Admin Dose 100 MLS/HR; Start 07/18/18 at 21:00 Lorazepam (Ativan) 1 mg Q4H PRN IV AGITATION Last administered on 07/18/18 23:26; Admin Dose 1 MG; Start 07/18/18 at 23:30 Haloperidol (Haldol) 5 mg Q2H PRN IM AGITATION Last administered on 07/19/18at 02:37; Admin Dose 5 MG; Start 07/18/18 at 23:30 Levofloxacin/ Dextrose 50 ml @ 50 mls/hr Q24H IVPB Last administered on 07/23/18at 10:52; Admin Dose 50 MLS/HR; Start 07/19/18 at 10:00 Pregabalin (Lyrica) 50 mg DAILY PO Last administered on 07/23/18 08:49; Admin Dose 50 MG; Start 07/19/18 at 13:00 Propofol 100 ml @ 1.909 mls/ hr Q12H IV Last administered on 07/23/18 05:30; Admin Dose 13.364 MLS/HR; Start 07/19/18 at 14:00 Allopurinol (Zyloprim) 100 mg DAILY PO Last administered on 07/23/18 08:49; Admin Dose 100 MG; Start 07/21/18 at 09:00 Docusate Sodium (Colace Liquid Cup) 100 mg BID GTB Last administered on 07/23/18at 09:26; Admin Dose 100 MG; Start 07/20/18 at 21:00 Fentanyl 100 ml @ 2.5 mls/hr TITRATE IV Last administered on 07/23/18at 00:55; Admin Dose 5 MLS/HR; Start 07/21/18 at 08:00 Famotidine (Pepcid) 20 mg Q12 PO Last administered on 07/23/18at 08:49; Admin Dose 20 MG; Start 07/21/18 at 21:00 Morphine Sulfate (morphine) 6 mg Q4H PRN PO PAIN LEVEL 7-10; Start 07/21/18 at 11:00 Dextrose 1,000 ml @ 50 mls/hr Q20H IV Last administered on 07/22/18at 15:44; Admin Dose 50 MLS/HR; Start 07/22/18 at 15:30; Stop 07/23/18 at 11:29 Vancomycin HCl (Vanco Iv Per Pharmacy) VANCOMYCIN PER PHARMACY PER PROTOCOL XX ; Start 07/23/18 at 09:00 Vancomycin HCl 1.25 gm/Sodium Chloride 250 ml @ 83.333 mls/ hr ONCE IVPB Last administered on 07/23/18at 10:17; Admin Dose 83.333 MLS/HR; Start 07/23/18 at 10:00; Stop 07/23/18 at 12:59 HARLEY STARR Jul 23, 2018 11:21
[2018-07-23] MEDS: FLUTICASONE 0.05% 16 GM NAS SPRAY NASAL SCH (12:59)
[2018-07-23] MEDS: NIFEdipine 10 MG CAP NGT SCH ×2 (15:30→20:44)
--- NOTE | 2018-07-23 15:56 | CONS ---
Date/Time of Note Date/Time of Note DATE: 07/23/18 TIME: 15:54 Assessment/Plan Assessment/Plan Assessment/Plan - BUE edema - will do venous doppler if there is any clot - Hypernatremia- d5w 50 cc/hr; monitor BMP am .- ELEVATED URIC ACID - 9.0 - start on Allopurinol 1. Acute renal failure due to ATN from sepsis + prerenal azotemia 2. Sepsis due to PNA 3. Acute Hypoxemic respiratory failure due to PNA 4. H/o CAD s/p previous stent placement 5. h/o Pacemaker placement 6. H/o HTN 7. H/o HL 8. H/o Chronic back pain, Prostate CA Plan: - increase GT flush from 100 ML to 150 ml Q6hr -Pt has MYKE due to ATN, ok to have PICC Line placement - BUN/Cr trended down - 51/1.15 - UO - 1245ML / 24 hrs IV abx Levaquin and IV cefepime, Renally dose all abx and monitor electrolytes Urine studies including -Urine Na -131 -Urine Prot/cr ratio- 0.24 -Urine Eosinophils- -CK total- 21.0 - Uric acid- 9.0 Renal US to assess for CKD to hydronephrosis Thanks for consultation , we will continue to follow up Patient seen in collaboration with Dr Shirley Mari Result Diagram: 07/23/18 0430 07/23/18 0430 Results 24hrs Laboratory Tests Test 07/23/18 04:30 07/23/18 07:00 White Blood Count 10.3 # Red Blood Count 2.50 L Hemoglobin 7.9 L Hematocrit 25.1 L Mean Corpuscular Volume 100.4 Mean Corpuscular Hemoglobin 31.6 Mean Corpuscular Hemoglobin Concent 31.5 L Red Cell Distribution Width 14.5 Platelet Count 171 Mean Platelet Volume 11.1 H Immature Granulocytes % 1.300 H Neutrophils % 86.7 H Lymphocytes % 6.1 L Monocytes % 4.0 Eosinophils % 1.7 Basophils % 0.2 Nucleated Red Blood Cells % 0.3 H Immature Granulocytes # 0.130 H Neutrophils # 8.9 H Lymphocytes # 0.6 L Monocytes # 0.4 Eosinophils # 0.2 Basophils # 0.0 Nucleated Red Blood Cells # 0.0 Sodium Level 148 H Potassium Level 4.7 Chloride Level 118 H Carbon Dioxide Level 24 Anion Gap 6 Blood Urea Nitrogen 51 H Creatinine 1.18 Est Glomerular Filtrat Rate mL/min Glucose Level 153 Calcium Level 8.0 L Blood Gas Specimen Source Blood arterial Arterial Blood Date Drawn 07/23/2018 7:00:11 AM Arterial Blood pH (Temp corrected) 7.307 L Arterial Blood pCO2 (Temp correct) 49.0 H Arterial Blood pO2 (Temp corrected) 75.1 L Arterial Blood HCO3 24.0 Arterial Blood Base Excess -2.4 Arterial Blood Oxygen Saturation 93.8 L Margarito Test ACCEPTAB Arterial Blood Gas Puncture Site Right Radial Arterial Blood Carboxyhemoglobin 0.3 Arterial Blood Methemoglobin 0.4 Blood Gas A-a O2 Differential 226.3 H Oxyhemoglobin Percent 93.1 Blood Gas Temperature 37.0 Blood Gas Respiration Rate 16.0 Blood Gas Actual Respiration Rate 16 Blood Gas Modality VENT - AC FiO2 50.0 Blood Gas Tidal Volume 500.0 Blood Gas Low PEEP Setting 5.0 Blood Gas Notified Whom TM Blood Gas Notified Time 07/23/2018 7:15:08 AM Consultation Date/Type/Reason Admit Date/Time Jul 18, 2018 at 16:57 Initial Consult Date 07/19/18 Type of Consult NEPHROLOGY Requesting Provider: HARLEY STARR 24 HR Interval Summary Free Text/Dictation NAD; seems comfortable - ET tube intact; on pressors - BUE edema- will do venous doppler if there is any clot - Hypernatremia- d5w 50 cc/hr; monitor BMP am - BUN/Cr trended down - 51/1.15 - UO - 1245ML / 24 hrs - dw staff Subjective hx not possible: pt non-verbal Constitutional: requiring IVF, requiring O2 Exam/Review of Systems Vital Signs Vitals Vital Signs Date Temp Pulse Resp B/P (MAP) Pulse Ox O2 O2 Flow FiO2 Time Delivery Rate 07/23/18 60 12:00 07/23/18 16 96 50 11:20 07/23/18 102/51 Mechanical 11:00 (68) Ventilator 07/23/18 98.7 08:00 Intake and Output 07/22/18 07/22/18 07/23/18 1515:00 23:00 07:00 IntakeIntake Total 780.734 ml 1145.642 ml 1085.184 ml OutputOutput Total 450 ml 450 ml 270 ml BalanceBalance 330.734 ml 695.642 ml 815.184 ml Exam Constitutional: well developed, non-verbal, frail Psych: nl mood/affect Head: normocephalic Eyes: nl conjunctiva, nl lids, nl sclera ENMT: nl external ears & nose Neck: supple Respiratory: diminished breath sounds (bilaterally) Cardiovascular: nl pulses, other (s1s2) Gastrointestinal: soft Musculoskeletal: nl extremities to inspection Extremities: normal pulses Neurological: unresponsive Skin: nl turgor Medications Medications Current Medications IV Flush (NS 3 ml) 3 ml PER PROTOCOL IV ; Start 07/18/18 at 17:30 Ondansetron HCl (Zofran Inj) 4 mg Q6H PRN IV NAUSEA AND/OR VOMITING; Start 07/18/18 at 17:30 Acetaminophen (Tylenol Tab) 650 mg Q6H PRN PO PAIN LEVEL 1-3 OR FEVER; Start 07/18/18 at 17:30 Enoxaparin Sodium (Lovenox) 30 mg DAILY SC Last administered on 07/23/18at 09:00; Admin Dose 30 MG; Start 07/19/18 at 09:00 Atorvastatin Calcium (Lipitor) 40 mg QHS PO Last administered on 07/22/18at 20:59; Admin Dose 40 MG; Start 07/18/18 at 21:00 Baclofen (Lioresal) 10 mg BID PO Last administered on 07/23/18at 08:49; Admin Dose 10 MG; Start 07/18/18 at 21:00 Docusate Sodium (Colace) 100 mg BID PRN PO CONSTIPATION; Start 07/18/18 at 17:30 Donepezil HCl (Aricept) 5 mg DAILY PO Last administered on 07/23/18at 08:48; Admin Dose 5 MG; Start 07/19/18 at 09:00 Doxazosin Mesylate (Cardura) 4 mg HS PO ; Start 07/18/18 at 21:00 Finasteride (Proscar) 5 mg DAILY PO Last administered on 07/23/18at 08:49; Admin Dose 5 MG; Start 07/19/18 at 09:00 Fluticasone Propionate (Flonase 0.05% Nasal) 1 spray DAILY NASAL Last administered on 07/23/18at 12:59; Admin Dose 1 SPRAY; Start 07/19/18 at 09:00 Hydrochlorothiazide (Hydrochlorothiazide) 12.5 mg DAILY PO Last administered on 07/23/18 08:49; Admin Dose 12.5 MG; Start 07/19/18 at 09:00 Cefepime HCl 50 ml @ 100 mls/hr Q12 IVPB Last administered on 07/23/18 08:48; Admin Dose 100 MLS/HR; Start 07/18/18 at 21:00 Lorazepam (Ativan) 1 mg Q4H PRN IV AGITATION Last administered on 07/18/18 23:26; Admin Dose 1 MG; Start 07/18/18 at 23:30 Haloperidol (Haldol) 5 mg Q2H PRN IM AGITATION Last administered on 07/19/18 02:37; Admin Dose 5 MG; Start 07/18/18 at 23:30 Levofloxacin/ Dextrose 50 ml @ 50 mls/hr Q24H IVPB Last administered on 07/23/18 10:52; Admin Dose 50 MLS/HR; Start 07/19/18 at 10:00 Pregabalin (Lyrica) 50 mg DAILY PO Last administered on 07/23/18 08:49; Admin Dose 50 MG; Start 07/19/18 at 13:00 Propofol 100 ml @ 1.909 mls/ hr Q12H IV Last administered on 07/23/18 12:32; Admin Dose 11.837 MLS/HR; Start 07/19/18 at 14:00 Allopurinol (Zyloprim) 100 mg DAILY PO Last administered on 07/23/18 08:49; Admin Dose 100 MG; Start 07/21/18 at 09:00 Docusate Sodium (Colace Liquid Cup) 100 mg BID GTB Last administered on 07/23/18 09:26; Admin Dose 100 MG; Start 07/20/18 at 21:00 Fentanyl 100 ml @ 2.5 mls/hr TITRATE IV Last administered on 07/23/18 00:55; Admin Dose 5 MLS/HR; Start 07/21/18 at 08:00 Famotidine (Pepcid) 20 mg Q12 PO Last administered on 07/23/18 08:49; Admin Dose 20 MG; Start 07/21/18 at 21:00 Morphine Sulfate (morphine) 6 mg Q4H PRN PO PAIN LEVEL 7-10; Start 07/21/18 at 11:00 Vancomycin HCl (Vanco Iv Per Pharmacy) VANCOMYCIN PER PHARMACY PER PROTOCOL XX ; Start 07/23/18 at 09:00 Nifedipine (Procardia) 20 mg TID NGT Last administered on 07/23/18at 15:30; Admin Dose 20 MG; Start 07/23/18 at 14:30 Vancomycin HCl 250 ml @ 125 mls/hr Q24H IVPB ; Start 07/24/18 at 10:00 JENNIFER RICHARD Jul 23, 2018 15:56
[2018-07-23] MEDS: DOXAZOSIN 4 MG TAB PO SCH (20:44)
[2018-07-23] MEDS: ATORVASTATIN 40 MG TAB PO SCH (20:49)
[2018-07-24] VITALS (35 sets, daily range): BP systolic 96–140; BP diastolic 45–61; PULSE 60–72; RESP 12–21
[2018-07-24] MEDS: PROPOFOL 100 ML IV SCH ×2 (00:50→14:07)
--- NOTE | 2018-07-24 08:47 | CONS ---
Date/Time of Note Date/Time of Note DATE: 07/24/18 TIME: 08:44 Consult Date/Type/Reason Admit Date/Time Jul 18, 2018 at 16:57 Initial Consult Date 07/19/18 Type of Consult Pulmonary Requesting Provider: HARLEY STARR Subjective Patient's condition remains critical. Patient however has remained hemodynamically stable. Currently undergoing sedation vacation. General exam; elderly male, orally intubated, sedated. Currently in no distress. Objective Vital Signs Date Temp Pulse Resp B/P (MAP) Pulse Ox O2 O2 Flow FiO2 Time Delivery Rate 07/24/18 60 17 111/48 100 Mechanical 06:00 (69) Ventilator 07/24/18 70 05:09 07/24/18 97.6 04:00 Intake and Output 07/23/18 07/23/18 07/24/18 1515:00 23:00 07:00 IntakeIntake Total 1370.114 ml 752.000 ml 641.836 ml OutputOutput Total 225 ml 375 ml 500 ml BalanceBalance 1145.114 ml 377.000 ml 141.836 ml Exam H EENT exam; supple neck, no JVD. No lymphadenopathy. Midline trachea. No thyromegaly. Orally intubated. Patient has a multiple carious teeth. No neck masses. Chest exam; diminished but clear breath sounds. S1-S2 audible, no murmurs. 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 Paced rhythm. Abdomen exam; soft, no organomegaly. Bowel sounds audible. Nondistended. Extremity exam; no edema. [employer] exam; patient is sedated. Vent Setting Ventilator Support Mode: AC Fraction of Inspired Oxygen pe: 70 Positive End Expiratory Pressu: 5.0 Results/Medications Result Diagram: 07/24/18 0500 07/24/18 0500 Results 24 hrs Laboratory Tests Test 07/24/18 05:00 07/24/18 07:00 White Blood Count 10.8 Red Blood Count 2.40 L Hemoglobin 7.7 L Hematocrit 24.1 L Mean Corpuscular Volume 100.4 Mean Corpuscular Hemoglobin 32.1 Mean Corpuscular Hemoglobin Concent 32.0 Red Cell Distribution Width 14.6 H Platelet Count 158 Mean Platelet Volume 11.5 H Immature Granulocytes % 4.100 H Neutrophils % 86.8 H Lymphocytes % 3.7 L Monocytes % 4.3 Eosinophils % 0.9 Basophils % 0.2 Nucleated Red Blood Cells % 0.3 H Immature Granulocytes # 0.440 H Neutrophils # 9.4 H Lymphocytes # 0.4 L Monocytes # 0.5 Eosinophils # 0.1 Basophils # 0.0 Nucleated Red Blood Cells # 0.0 Sodium Level 144 Potassium Level 5.5 H Chloride Level 117 H Carbon Dioxide Level 22 Anion Gap 5 Blood Urea Nitrogen 64 H Creatinine 1.40 H Est Glomerular Filtrat Rate mL/min Glucose Level 160 Calcium Level 7.9 L Total Bilirubin 0.1 L Direct Bilirubin 0.00 Indirect Bilirubin 0.1 Aspartate Amino Transf (AST/SGOT) 102 H Alanine Aminotransferase (ALT/SGPT) 52 Alkaline Phosphatase 109 Total Protein 4.4 L Albumin 2.0 L Globulin 2.40 Albumin/Globulin Ratio 0.83 Blood Gas Specimen Source Blood arterial Arterial Blood Date Drawn 07/24/2018 7:05:49 AM Arterial Blood pH (Temp corrected) 7.335 L Arterial Blood pCO2 (Temp correct) 44.4 Arterial Blood pO2 (Temp corrected) 141.1 H Arterial Blood HCO3 23.1 Arterial Blood Base Excess -2.6 Arterial Blood Oxygen Saturation 98.2 Margarito Test ACCEPTAB Arterial Blood Gas Puncture Site Right Radial Arterial Blood Carboxyhemoglobin 0.3 Arterial Blood Methemoglobin 0.3 Blood Gas A-a O2 Differential 310.3 H Oxyhemoglobin Percent 97.6 Blood Gas Temperature 37.0 Blood Gas Respiration Rate 16.0 Blood Gas Actual Respiration Rate 17 Blood Gas Modality VENT - AC FiO2 70.0 Blood Gas Tidal Volume 500.0 Blood Gas Low PEEP Setting 5.0 Blood Gas Notified Whom TM Blood Gas Notified Time 07/24/2018 7:13:24 AM Medications Current Medications IV Flush (NS 3 ml) 3 ml PER PROTOCOL IV ; Start 07/18/18 at 17:30 Ondansetron HCl (Zofran Inj) 4 mg Q6H PRN IV NAUSEA AND/OR VOMITING; Start at 17:30 Acetaminophen (Tylenol Tab) 650 mg Q6H PRN PO PAIN LEVEL 1-3 OR FEVER; Start 07/18/18 at 17:30 Enoxaparin Sodium (Lovenox) 30 mg DAILY SC Last administered on 07/23/18at 09:00; Admin Dose 30 MG; Start 07/19/18 at 09:00 Atorvastatin Calcium (Lipitor) 40 mg QHS PO Last administered on 07/23/18 20:49; Admin Dose 40 MG; Start 07/18/18 at 21:00 Baclofen (Lioresal) 10 mg BID PO Last administered on 07/23/18 20:49; Admin Dose 10 MG; Start 07/18/18 at 21:00 Docusate Sodium (Colace) 100 mg BID PRN PO CONSTIPATION; Start 07/18/18 at 17:30 Donepezil HCl (Aricept) 5 mg DAILY PO Last administered on 07/23/18 08:48; Admin Dose 5 MG; Start 07/19/18 at 09:00 Doxazosin Mesylate (Cardura) 4 mg HS PO ; Start 07/18/18 at 21:00 Finasteride (Proscar) 5 mg DAILY PO Last administered on 07/23/18 08:49; Admin Dose 5 MG; Start 07/19/18 at 09:00 Fluticasone Propionate (Flonase 0.05% Nasal) 1 spray DAILY NASAL Last administered on 07/23/18 12:59; Admin Dose 1 SPRAY; Start 07/19/18 at 09:00 Hydrochlorothiazide (Hydrochlorothiazide) 12.5 mg DAILY PO Last administered on 07/23/18 08:49; Admin Dose 12.5 MG; Start 07/19/18 at 09:00 Cefepime HCl 50 ml @ 100 mls/hr Q12 IVPB Last administered on 07/23/18 20:48; Admin Dose 100 MLS/HR; Start 07/18/18 at 21:00 Lorazepam (Ativan) 1 mg Q4H PRN IV AGITATION Last administered on 07/18/18 23:26; Admin Dose 1 MG; Start 07/18/18 at 23:30 Haloperidol (Haldol) 5 mg Q2H PRN IM AGITATION Last administered on 07/19/18 02:37; Admin Dose 5 MG; Start 07/18/18 at 23:30 Levofloxacin/ Dextrose 50 ml @ 50 mls/hr Q24H IVPB Last administered on 07/23/18 10:52; Admin Dose 50 MLS/HR; Start 07/19/18 at 10:00 Pregabalin (Lyrica) 50 mg DAILY PO Last administered on 07/23/18 08:49; Admin Dose 50 MG; Start 07/19/18 at 13:00 Propofol 100 ml @ 1.909 mls/ hr Q12H IV Last administered on 07/24/18at 00:50; Admin Dose 3.818 MLS/HR; Start 07/19/18 at 14:00 Allopurinol (Zyloprim) 100 mg DAILY PO Last administered on 07/23/18at 08:49; Admin Dose 100 MG; Start 07/21/18 at 09:00 Docusate Sodium (Colace Liquid Cup) 100 mg BID GTB Last administered on 07/23/18at 20:48; Admin Dose 100 MG; Start 07/20/18 at 21:00 Fentanyl 100 ml @ 2.5 mls/hr TITRATE IV Last administered on 07/23/18at 22:15; Admin Dose 5 MLS/HR; Start 07/21/18 at 08:00 Famotidine (Pepcid) 20 mg Q12 PO Last administered on 07/23/18at 20:49; Admin Dose 20 MG; Start 07/21/18 at 21:00 Morphine Sulfate (morphine) 6 mg Q4H PRN PO PAIN LEVEL 7-10; Start 07/21/18 at 11:00 Vancomycin HCl (Vanco Iv Per Pharmacy) VANCOMYCIN PER PHARMACY PER PROTOCOL XX ; Start 07/23/18 at 09:00 Nifedipine (Procardia) 20 mg TID NGT Last administered on 07/23/18at 15:30; Admin Dose 20 MG; Start 07/23/18 at 14:30 Vancomycin HCl 250 ml @ 125 mls/hr Q24H IVPB ; Start 07/24/18 at 10:00 Assessment/Plan Additional Assessment/Plan Ventilator setting; AC of 16, tidal volume 500, PEEP of 5, 60% FiO2. Sedation is on hold. Chest x-ray from today showing improvement in bilateral pneumonia. Assessment and recommendations; 1. Patient admitted with severe bilateral community acquired pneumonia leading to respiratory failure requiring intubation. There has been significant improvement in hypoxemia as well as chest x-ray. 2. Prior history of cardiac arrhythmia, status post pacemaker placement 3. Mild increase in serum creatinine possibly diuretic induced. 4. Anemia and thrombocytopenia. 5. Mild hyperkalemia. Continue current supportive care. Continue to hold sedation. Increase free water to 250 mL every 6 hours. Obtain follow-up chest x-ray 24 hours. Monitor renal function. Decrease FiO2 to keep O2 saturation around 94%. I did have a detailed discussion with the patient's daughter at bedside and answered all her questions. 35 minutes of critical care time was spent evaluating the patient. PATIENCE MCDONNELL Jul 24, 2018 08:47
[2018-07-24] MEDS: FLUTICASONE 0.05% 16 GM NAS SPRAY NASAL SCH (08:51)
[2018-07-24] MEDS: DOCUSATE SODIUM 10 MG/ML (10ML CUP) GTB SCH ×2 (08:51→20:28)
[2018-07-24] MEDS: CEFEPIME 2GM/50 ML (PMX) 50 ML IVPB SCH ×2 (08:51→20:28)
[2018-07-24] MEDS: FINASTERIDE 5 MG TAB PO SCH (08:51)
[2018-07-24] MEDS: NIFEdipine 10 MG CAP NGT SCH ×3 (08:53→20:28)
[2018-07-24] MEDS: BACLOFEN 10 MG TAB PO SCH ×2 (08:53→20:29)
[2018-07-24] MEDS: DONEPEZIL 5 MG TAB PO SCH (08:53)
[2018-07-24] MEDS: ALLOPURINOL 100 MG TAB PO SCH (08:53)
[2018-07-24] MEDS: PREGABALIN 50 MG CAP PO SCH (08:54)
[2018-07-24] MEDS: FAMOTIDINE 20 MG TAB PO SCH ×2 (08:55→20:29)
[2018-07-24] MEDS: ENOXAPARIN 30 MG/0.3 ML SYG SC SCH (08:58)
[2018-07-24] MEDS ORDERED: BALSAM PERU/CASTOR OIL 60 GM TUBE TOP SCH (09:00)
[2018-07-24] MEDS: LEVOFLOXACIN 250MG/D5W (PMX) 50 ML IVPB SCH (10:00)
--- NOTE | 2018-07-24 10:39 | PN ---
Date/Time of Note Date/Time of Note DATE: 07/24/18 TIME: 10:38 Assessment/Plan VTE Prophylaxis Risk score (from Ns)>0 risk: 6 SCD applied (from Ns): Yes Pharmacological prophylaxis: LMWH Lines/Catheters IV Catheter Type (from Nrs): PICC Line Central line still needed: Yes Urinary Cath still in place: Yes Reason Cath still needed: skin wounds contaminated by urine Assessment/Plan Hospital Course 1) pneumonia - IV antibiotics 2) respiratory failure - on ventilator support - monitor clinically Result Diagram: 07/24/18 0500 07/24/18 0500 Results 24hrs Laboratory Tests Test 07/24/18 05:00 07/24/18 07:00 White Blood Count 10.8 Red Blood Count 2.40 L Hemoglobin 7.7 L Hematocrit 24.1 L Mean Corpuscular Volume 100.4 Mean Corpuscular Hemoglobin 32.1 Mean Corpuscular Hemoglobin Concent 32.0 Red Cell Distribution Width 14.6 H Platelet Count 158 Mean Platelet Volume 11.5 H Immature Granulocytes % 4.100 H Neutrophils % 86.8 H Lymphocytes % 3.7 L Monocytes % 4.3 Eosinophils % 0.9 Basophils % 0.2 Nucleated Red Blood Cells % 0.3 H Immature Granulocytes # 0.440 H Neutrophils # 9.4 H Lymphocytes # 0.4 L Monocytes # 0.5 Eosinophils # 0.1 Basophils # 0.0 Nucleated Red Blood Cells # 0.0 Sodium Level 144 Potassium Level 5.5 H Chloride Level 117 H Carbon Dioxide Level 22 Anion Gap 5 Blood Urea Nitrogen 64 H Creatinine 1.40 H Est Glomerular Filtrat Rate mL/min Glucose Level 160 Calcium Level 7.9 L Total Bilirubin 0.1 L Direct Bilirubin 0.00 Indirect Bilirubin 0.1 Aspartate Amino Transf (AST/SGOT) 102 H Alanine Aminotransferase (ALT/SGPT) 52 Alkaline Phosphatase 109 Total Protein 4.4 L Albumin 2.0 L Globulin 2.40 Albumin/Globulin Ratio 0.83 Blood Gas Specimen Source Blood arterial Arterial Blood Date Drawn 07/24/2018 7:05:49 AM Arterial Blood pH (Temp corrected) 7.335 L Arterial Blood pCO2 (Temp correct) 44.4 Arterial Blood pO2 (Temp corrected) 141.1 H Arterial Blood HCO3 23.1 Arterial Blood Base Excess -2.6 Arterial Blood Oxygen Saturation 98.2 Margarito Test ACCEPTAB Arterial Blood Gas Puncture Site Right Radial Arterial Blood Carboxyhemoglobin 0.3 Arterial Blood Methemoglobin 0.3 Blood Gas A-a O2 Differential 310.3 H Oxyhemoglobin Percent 97.6 Blood Gas Temperature 37.0 Blood Gas Respiration Rate 16.0 Blood Gas Actual Respiration Rate 17 Blood Gas Modality VENT - AC FiO2 70.0 Blood Gas Tidal Volume 500.0 Blood Gas Low PEEP Setting 5.0 Blood Gas Notified Whom TM Blood Gas Notified Time 07/24/2018 7:13:24 AM Subjective 24 Hr Interval Summary Free Text/Dictation Patient comfortable, sedated on ventilator Exam/Review of Systems Vital Signs Vitals Vital Signs Date Temp Pulse Resp B/P (MAP) Pulse Ox O2 O2 Flow FiO2 Time Delivery Rate 07/24/18 60 17 100 50 09:09 07/24/18 111/48 Mechanical 06:00 (69) Ventilator 07/24/18 97.6 04:00 Intake and Output 07/23/18 07/23/18 07/24/18 1515:00 23:00 07:00 IntakeIntake Total 1370.114 ml 752.000 ml 641.836 ml OutputOutput Total 225 ml 375 ml 500 ml BalanceBalance 1145.114 ml 377.000 ml 141.836 ml Exam Constitutional: well developed Head: normocephalic, atraumatic Neck: supple Respiratory: diminished breath sounds Cardiovascular: regular rate and rhythm Gastrointestinal: soft, non-tender Extremities: normal pulses Medications Medications Current Medications IV Flush (NS 3 ml) 3 ml PER PROTOCOL IV ; Start 07/18/18 at 17:30 Ondansetron HCl (Zofran Inj) 4 mg Q6H PRN IV NAUSEA AND/OR VOMITING; Start 07/18/18 at 17:30 Acetaminophen (Tylenol Tab) 650 mg Q6H PRN PO PAIN LEVEL 1-3 OR FEVER; Start 07/18/18 at 17:30 Enoxaparin Sodium (Lovenox) 30 mg DAILY SC Last administered on 07/24/18at 08:58; Admin Dose 30 MG; Start 07/19/18 at 09:00 Atorvastatin Calcium (Lipitor) 40 mg QHS PO Last administered on 07/23/18at 20:49; Admin Dose 40 MG; Start 07/18/18 at 21:00 Baclofen (Lioresal) 10 mg BID PO Last administered on 07/24/18at 08:53; Admin Dose 10 MG; Start 07/18/18 at 21:00 Docusate Sodium (Colace) 100 mg BID PRN PO CONSTIPATION; Start 07/18/18 at 17:30 Donepezil HCl (Aricept) 5 mg DAILY PO Last administered on 07/24/18 08:53; Admin Dose 5 MG; Start 07/19/18 at 09:00 Doxazosin Mesylate (Cardura) 4 mg HS PO ; Start 07/18/18 at 21:00 Finasteride (Proscar) 5 mg DAILY PO Last administered on 07/24/18 08:51; Admin Dose 5 MG; Start 07/19/18 at 09:00 Fluticasone Propionate (Flonase 0.05% Nasal) 1 spray DAILY NASAL Last administered on 07/24/18 08:51; Admin Dose 1 SPRAY; Start 07/19/18 at 09:00 Cefepime HCl 50 ml @ 100 mls/hr Q12 IVPB Last administered on 07/24/18 08:51; Admin Dose 100 MLS/HR; Start 07/18/18 at 21:00 Haloperidol (Haldol) 5 mg Q2H PRN IM AGITATION Last administered on 07/19/18 02:37; Admin Dose 5 MG; Start 07/18/18 at 23:30 Levofloxacin/ Dextrose 50 ml @ 50 mls/hr Q24H IVPB Last administered on 07/23/18 10:52; Admin Dose 50 MLS/HR; Start 07/19/18 at 10:00 Pregabalin (Lyrica) 50 mg DAILY PO Last administered on 07/24/18 08:54; Admin Dose 50 MG; Start 07/19/18 at 13:00 Propofol 100 ml @ 1.909 mls/ hr Q12H IV Last administered on 07/24/18 00:50; Admin Dose 3.818 MLS/HR; Start 07/19/18 at 14:00 Allopurinol (Zyloprim) 100 mg DAILY PO Last administered on 07/24/18 08:53; Admin Dose 100 MG; Start 07/21/18 at 09:00 Docusate Sodium (Colace Liquid Cup) 100 mg BID GTB Last administered on 07/24/18 08:51; Admin Dose 100 MG; Start 07/20/18 at 21:00 Fentanyl 100 ml @ 2.5 mls/hr TITRATE IV Last administered on 07/23/18at 22:15; Admin Dose 5 MLS/HR; Start 07/21/18 at 08:00 Famotidine (Pepcid) 20 mg Q12 PO Last administered on 07/24/18at 08:55; Admin Dose 20 MG; Start 07/21/18 at 21:00 Morphine Sulfate (morphine) 6 mg Q4H PRN PO PAIN LEVEL 7-10; Start 07/21/18 at 11:00 Vancomycin HCl (Vanco Iv Per Pharmacy) VANCOMYCIN PER PHARMACY PER PROTOCOL XX ; Start 07/23/18 at 09:00 Nifedipine (Procardia) 20 mg TID NGT Last administered on 07/24/18at 08:53; Admin Dose 20 MG; Start 07/23/18 at 14:30 Vancomycin HCl 250 ml @ 125 mls/hr Q24H IVPB ; Start 07/24/18 at 10:00 Lorazepam (Ativan) 1 mg Q4H PRN GTB AGITATION; Start 07/24/18 at 11:00 Sodium Polystyrene Sulfonate (Kayexalate) 30 gm ONCE ONCE NGT ; Start 07/24/18 at 11:00; Stop 07/24/18 at 11:01; Status HARLEY MENDEZ Jul 24, 2018 10:39
[2018-07-24] MEDS ORDERED: NA POLYST SULFON 15 GM/60 ML BTL NGT ONE (11:00)
[2018-07-24] MEDS ORDERED: LORAZEPAM 1 MG TAB GTB PRN (11:00)
[2018-07-24] MEDS: BALSAM PERU/CASTOR OIL 60 GM TUBE TOP SCH ×2 (12:23→20:29)
[2018-07-24] MEDS: VANCOMYCIN 1 GM 250 ML IVPB SCH (12:32)
--- NOTE | 2018-07-24 17:04 | CONS ---
Date/Time of Note Date/Time of Note DATE: 07/24/18 TIME: 17:00 Assessment/Plan Assessment/Plan Assessment/Plan - BUE edema - venous doppler - NEGATIVE foro DVT - elevate extremities all times - Hypernatremia- resolved d5w 50 cc/hr; monitor BMP am .- ELEVATED URIC ACID - 9.0 - cont Allopurinol 1. Acute renal failure due to ATN from sepsis + prerenal azotemia 2. Sepsis due to PNA 3. Acute Hypoxemic respiratory failure due to PNA 4. H/o CAD s/p previous stent placement 5. h/o Pacemaker placement 6. H/o HTN 7. H/o HL 8. H/o Chronic back pain, Prostate CA Plan: - increase GT flush from 100 ML to 150 ml Q6hr -Pt has MYKE due to ATN, ok to have PICC Line placement - BUN/Cr - 64/1.40- trended up- cont IVF; monitor am labs -UO 1100 ML/24 HR IV abx Levaquin and IV cefepime, Renally dose all abx and monitor electrolytes Urine studies including -Urine Na -131 -Urine Prot/cr ratio- 0.24 -Urine Eosinophils- -CK total- 21.0 - Uric acid- 9.0 Renal US to assess for CKD to hydronephrosis Thanks for consultation , we will continue to follow up Patient seen in collaboration with Dr Shirley Mari Result Diagram: 07/24/18 0500 07/24/18 0500 Results 24hrs Laboratory Tests Test 07/24/18 05:00 07/24/18 07:00 White Blood Count 10.8 Red Blood Count 2.40 L Hemoglobin 7.7 L Hematocrit 24.1 L Mean Corpuscular Volume 100.4 Mean Corpuscular Hemoglobin 32.1 Mean Corpuscular Hemoglobin Concent 32.0 Red Cell Distribution Width 14.6 H Platelet Count 158 Mean Platelet Volume 11.5 H Immature Granulocytes % 4.100 H Neutrophils % 86.8 H Lymphocytes % 3.7 L Monocytes % 4.3 Eosinophils % 0.9 Basophils % 0.2 Nucleated Red Blood Cells % 0.3 H Immature Granulocytes # 0.440 H Neutrophils # 9.4 H Lymphocytes # 0.4 L Monocytes # 0.5 Eosinophils # 0.1 Basophils # 0.0 Nucleated Red Blood Cells # 0.0 Sodium Level 144 Potassium Level 5.5 H Chloride Level 117 H Carbon Dioxide Level 22 Anion Gap 5 Blood Urea Nitrogen 64 H Creatinine 1.40 H Est Glomerular Filtrat Rate mL/min Glucose Level 160 Calcium Level 7.9 L Total Bilirubin 0.1 L Direct Bilirubin 0.00 Indirect Bilirubin 0.1 Aspartate Amino Transf (AST/SGOT) 102 H Alanine Aminotransferase (ALT/SGPT) 52 Alkaline Phosphatase 109 Total Protein 4.4 L Albumin 2.0 L Globulin 2.40 Albumin/Globulin Ratio 0.83 Blood Gas Specimen Source Blood arterial Arterial Blood Date Drawn 07/24/2018 7:05:49 AM Arterial Blood pH (Temp corrected) 7.335 L Arterial Blood pCO2 (Temp correct) 44.4 Arterial Blood pO2 (Temp corrected) 141.1 H Arterial Blood HCO3 23.1 Arterial Blood Base Excess -2.6 Arterial Blood Oxygen Saturation 98.2 Margarito Test ACCEPTAB Arterial Blood Gas Puncture Site Right Radial Arterial Blood Carboxyhemoglobin 0.3 Arterial Blood Methemoglobin 0.3 Blood Gas A-a O2 Differential 310.3 H Oxyhemoglobin Percent 97.6 Blood Gas Temperature 37.0 Blood Gas Respiration Rate 16.0 Blood Gas Actual Respiration Rate 17 Blood Gas Modality VENT - AC FiO2 70.0 Blood Gas Tidal Volume 500.0 Blood Gas Low PEEP Setting 5.0 Blood Gas Notified Whom TM Blood Gas Notified Time 07/24/2018 7:13:24 AM Consultation Date/Type/Reason Admit Date/Time Jul 18, 2018 at 16:57 Initial Consult Date 07/19/18 Type of Consult NEPHROLOGY Reason for Consultation MYEK Requesting Provider: HARLEY STARR 24 HR Interval Summary Free Text/Dictation - BUE edema-- venous doppler - NEGATIVE foro DVT - Hypernatremia- resolved d5w 50 cc/hr; monitor BMP am - BUN/Cr - 64/1.40- trended up- cont IVF; monitor am labs -UO 1100 ML/24 HR - dw staff Subjective hx not possible: pt non-verbal Constitutional: requiring IVF Exam/Review of Systems Vital Signs Vitals Vital Signs Date Temp Pulse Resp B/P (MAP) Pulse Ox O2 O2 Flow FiO2 Time Delivery Rate 07/24/18 97.5 60 16 101/54 97 Mechanical 12:00 (70) Ventilator 07/24/18 40 11:20 Intake and Output 07/23/18 07/23/18 07/24/18 1515:00 23:00 07:00 IntakeIntake Total 1370.114 ml 752.000 ml 652.564 ml OutputOutput Total 225 ml 375 ml 500 ml BalanceBalance 1145.114 ml 377.000 ml 152.564 ml Exam Constitutional: non-verbal Psych: nl mood/affect Head: normocephalic Eyes: nl lids, nl sclera ENMT: nl external ears & nose Neck: supple, other (ET tube intact) Respiratory: diminished breath sounds (bilaterally) Cardiovascular: nl pulses, other (s1s2) Gastrointestinal: soft Musculoskeletal: nl extremities to inspection Extremities: edema Neurological: unresponsive Medications Medications Current Medications IV Flush (NS 3 ml) 3 ml PER PROTOCOL IV ; Start 07/18/18 at 17:30 Ondansetron HCl (Zofran Inj) 4 mg Q6H PRN IV NAUSEA AND/OR VOMITING; Start 07/18/18 at 17:30 Acetaminophen (Tylenol Tab) 650 mg Q6H PRN PO PAIN LEVEL 1-3 OR FEVER; Start 07/18/18 at 17:30 Enoxaparin Sodium (Lovenox) 30 mg DAILY SC Last administered on 07/24/18at 08:58; Admin Dose 30 MG; Start 07/19/18 at 09:00 Atorvastatin Calcium (Lipitor) 40 mg QHS PO Last administered on 07/23/18at 20:49; Admin Dose 40 MG; Start 07/18/18 at 21:00 Baclofen (Lioresal) 10 mg BID PO Last administered on 07/24/18at 08:53; Admin Dose 10 MG; Start 07/18/18 at 21:00 Docusate Sodium (Colace) 100 mg BID PRN PO CONSTIPATION; Start 07/18/18 at 17:30 Donepezil HCl (Aricept) 5 mg DAILY PO Last administered on 07/24/18at 08:53; Admin Dose 5 MG; Start 07/19/18 at 09:00 Doxazosin Mesylate (Cardura) 4 mg HS PO ; Start 07/18/18 at 21:00 Finasteride (Proscar) 5 mg DAILY PO Last administered on 07/24/18at 08:51; Admin Dose 5 MG; Start 07/19/18 at 09:00 Fluticasone Propionate (Flonase 0.05% Nasal) 1 spray DAILY NASAL Last administered on 07/24/18 08:51; Admin Dose 1 SPRAY; Start 07/19/18 at 09:00 Cefepime HCl 50 ml @ 100 mls/hr Q12 IVPB Last administered on 07/24/18 08:51; Admin Dose 100 MLS/HR; Start 07/18/18 at 21:00 Haloperidol (Haldol) 5 mg Q2H PRN IM AGITATION Last administered on 07/19/18 02:37; Admin Dose 5 MG; Start 07/18/18 at 23:30 Levofloxacin/ Dextrose 50 ml @ 50 mls/hr Q24H IVPB Last administered on 8at 10:00; Admin Dose 50 MLS/HR; Start 07/19/18 at 10:00 Pregabalin (Lyrica) 50 mg DAILY PO Last administered on 07/24/18 08:54; Admin Dose 50 MG; Start 07/19/18 at 13:00 Propofol 100 ml @ 1.909 mls/ hr Q12H IV Last administered on 07/24/18 14:07; Admin Dose 5.728 MLS/HR; Start 07/19/18 at 14:00 Allopurinol (Zyloprim) 100 mg DAILY PO Last administered on 07/24/18 08:53; Admin Dose 100 MG; Start 07/21/18 at 09:00 Docusate Sodium (Colace Liquid Cup) 100 mg BID GTB Last administered on 07/24/18 08:51; Admin Dose 100 MG; Start 07/20/18 at 21:00 Fentanyl 100 ml @ 2.5 mls/hr TITRATE IV Last administered on 07/23/18at 22:15; Admin Dose 5 MLS/HR; Start 07/21/18 at 08:00 Famotidine (Pepcid) 20 mg Q12 PO Last administered on 07/24/18 08:55; Admin Dose 20 MG; Start 07/21/18 at 21:00 Morphine Sulfate (morphine) 6 mg Q4H PRN PO PAIN LEVEL 7-10; Start 07/21/18 at 11:00 Vancomycin HCl (Vanco Iv Per Pharmacy) VANCOMYCIN PER PHARMACY PER PROTOCOL XX ; Start 07/23/18 at 09:00 Nifedipine (Procardia) 20 mg TID NGT Last administered on 12/27/18at 13:57; Admin Dose 20 MG; Start 07/23/18 at 14:30 Vancomycin HCl 250 ml @ 125 mls/hr Q24H IVPB Last administered on 07/24/18at 12:32; Admin Dose 125 MLS/HR; Start 07/24/18 at 10:00 Lorazepam (Ativan) 1 mg Q4H PRN GTB AGITATION; Start 07/24/18 at 11:00 JENNIFER RICHARD Jul 24, 2018 17:04
[2018-07-24] MEDS: FENTAnyl (DRIP) 1000 mcg/100mL 100 ML IV SCH (19:38)
[2018-07-24] MEDS: ATORVASTATIN 40 MG TAB PO SCH (20:29)
[2018-07-24] MEDS: DOXAZOSIN 4 MG TAB PO SCH (20:29)
[2018-07-25] VITALS (36 sets, daily range): BP systolic 108–137; BP diastolic 49–64; PULSE 60–61; RESP 14–20
[2018-07-25] MEDS: PROPOFOL 100 ML IV SCH ×3 (01:59→23:11)
[2018-07-25] MEDS: NIFEdipine 10 MG CAP NGT SCH ×3 (08:10→20:20)
[2018-07-25] MEDS: CEFEPIME 2GM/50 ML (PMX) 50 ML IVPB SCH ×2 (08:11→20:19)
[2018-07-25] MEDS: DOCUSATE SODIUM 10 MG/ML (10ML CUP) GTB SCH ×2 (08:11→20:20)
[2018-07-25] MEDS: PREGABALIN 50 MG CAP PO SCH (08:12)
[2018-07-25] MEDS: FLUTICASONE 0.05% 16 GM NAS SPRAY NASAL SCH (08:12)
[2018-07-25] MEDS: ALLOPURINOL 100 MG TAB PO SCH (08:13)
[2018-07-25] MEDS: DONEPEZIL 5 MG TAB PO SCH (08:13)
[2018-07-25] MEDS: FINASTERIDE 5 MG TAB PO SCH (08:13)
[2018-07-25] MEDS: FAMOTIDINE 20 MG TAB PO SCH ×2 (08:13→20:20)
[2018-07-25] MEDS: BACLOFEN 10 MG TAB PO SCH ×2 (08:13→20:20)
[2018-07-25] MEDS: BALSAM PERU/CASTOR OIL 60 GM TUBE TOP SCH ×2 (08:14→20:20)
[2018-07-25] MEDS: ENOXAPARIN 30 MG/0.3 ML SYG SC SCH (08:15)
[2018-07-25] MEDS: LEVOFLOXACIN 250MG/D5W (PMX) 50 ML IVPB SCH (09:06)
[2018-07-25] MEDS: VANCOMYCIN 1 GM 250 ML IVPB SCH (11:00)
--- NOTE | 2018-07-25 11:40 | CONS ---
Date/Time of Note Date/Time of Note DATE: 07/25/18 TIME: 11:36 Consult Date/Type/Reason Admit Date/Time Jul 18, 2018 at 16:57 Initial Consult Date 07/19/18 Type of Consultation: Pulm Requesting Provider: HARLEY STARR Subjective Remains intubated, failed weaning trial this morning. CXR shows bilateral infiltrates. Vomited yesterday. Objective Vital Signs Date Temp Pulse Resp B/P (MAP) Pulse Ox O2 O2 Flow FiO2 Time Delivery Rate 07/25/18 98.7 60 15 120/59 98 Mechanical 08:00 (79) Ventilator 07/25/18 40 08:00 Intake and Output 07/24/18 07/24/18 07/25/18 1515:00 23:00 07:00 IntakeIntake Total 865.824 ml 904.986 ml 1013.8 ml OutputOutput Total 300 ml 500 ml 335 ml BalanceBalance 565.824 ml 404.986 ml 678.8 ml Exam GENERAL: Elderly gentleman orally intubated VITAL SIGNS: per chart NECK: Supple. No JVD or lymphadenopathy. CARDIAC EXAM: S1, S2. No added sounds or murmurs. CHEST: Diminished air entry bilaterally ABDOMEN: Soft, nontender. No guarding or rebound. EXTREMITIES: No cyanosis, clubbing or edema. NEUROLOGIC: Generalized weakness. No focal deficits. Results/Medications Result Diagram: 07/25/18 0500 07/25/18 0500 Results 24 hrs Laboratory Tests Test 07/25/18 05:00 White Blood Count 9.9 Red Blood Count 2.47 L Hemoglobin 7.8 L Hematocrit 24.7 L Mean Corpuscular Volume 100.0 Mean Corpuscular Hemoglobin 31.6 Mean Corpuscular Hemoglobin Concent 31.6 L Red Cell Distribution Width 14.5 Platelet Count 167 Mean Platelet Volume 11.8 H Immature Granulocytes % 3.800 H Neutrophils % 86.2 H Lymphocytes % 4.6 L Monocytes % 3.9 Eosinophils % 1.4 Basophils % 0.1 Nucleated Red Blood Cells % 0.0 Immature Granulocytes # 0.380 H Neutrophils # 8.5 H Lymphocytes # 0.5 L Monocytes # 0.4 Eosinophils # 0.1 Basophils # 0.0 Nucleated Red Blood Cells # 0.0 Sodium Level 145 H Potassium Level 4.8 Chloride Level 116 H Carbon Dioxide Level 23 Anion Gap 6 Blood Urea Nitrogen 72 H Creatinine 1.64 H Est Glomerular Filtrat Rate mL/min Glucose Level 167 Calcium Level 8.4 Medications Current Medications IV Flush (NS 3 ml) 3 ml PER PROTOCOL IV ; Start 07/18/18 at 17:30 Ondansetron HCl (Zofran Inj) 4 mg Q6H PRN IV NAUSEA AND/OR VOMITING; Start 07/18/18 at 17:30 Acetaminophen (Tylenol Tab) 650 mg Q6H PRN PO PAIN LEVEL 1-3 OR FEVER; Start 07/18/18 at 17:30 Enoxaparin Sodium (Lovenox) 30 mg DAILY SC Last administered on 07/25/18 08:15; Admin Dose 30 MG; Start 07/19/18 at 09:00 Atorvastatin Calcium (Lipitor) 40 mg QHS PO Last administered on 07/24/18 20:29; Admin Dose 40 MG; Start 07/18/18 at 21:00 Baclofen (Lioresal) 10 mg BID PO Last administered on 07/25/18 08:13; Admin Dose 10 MG; Start 07/18/18 at 21:00 Docusate Sodium (Colace) 100 mg BID PRN PO CONSTIPATION; Start 07/18/18 at 17:30 Donepezil HCl (Aricept) 5 mg DAILY PO Last administered on 07/25/18 08:13; Admin Dose 5 MG; Start 07/19/18 at 09:00 Doxazosin Mesylate (Cardura) 4 mg HS PO Last administered on 07/24/18 20:29; Admin Dose 4 MG; Start 07/18/18 at 21:00 Finasteride (Proscar) 5 mg DAILY PO Last administered on 07/25/18 08:13; Admin Dose 5 MG; Start 07/19/18 at 09:00 Fluticasone Propionate (Flonase 0.05% Nasal) 1 spray DAILY NASAL Last administered on 07/25/18 08:12; Admin Dose 1 SPRAY; Start 07/19/18 at 09:00 Cefepime HCl 50 ml @ 100 mls/hr Q12 IVPB Last administered on 07/25/18 08:11; Admin Dose 100 MLS/HR; Start 07/18/18 at 21:00 Haloperidol (Haldol) 5 mg Q2H PRN IM AGITATION Last administered on 07/19/18 02:37; Admin Dose 5 MG; Start 07/18/18 at 23:30 Levofloxacin/ Dextrose 50 ml @ 50 mls/hr Q24H IVPB Last administered on 07/25/18 09:06; Admin Dose 50 MLS/HR; Start 07/19/18 at 10:00 Pregabalin (Lyrica) 50 mg DAILY PO Last administered on 07/25/18 08:12; Admin Dose 50 MG; Start 07/19/18 at 13:00 Propofol 100 ml @ 1.909 mls/ hr Q12H IV Last administered on 07/25/18 01:59; Admin Dose 8.4 MLS/HR; Start 07/19/18 at 14:00 Allopurinol (Zyloprim) 100 mg DAILY PO Last administered on 07/25/18 08:13; Admin Dose 100 MG; Start 07/21/18 at 09:00 Docusate Sodium (Colace Liquid Cup) 100 mg BID GTB Last administered on 07/25/18 08:11; Admin Dose 100 MG; Start 07/20/18 at 21:00 Fentanyl 100 ml @ 2.5 mls/hr TITRATE IV Last administered on 07/24/18 19:38; Admin Dose 5 MLS/HR; Start 07/21/18 at 08:00 Famotidine (Pepcid) 20 mg Q12 PO Last administered on 07/25/18 08:13; Admin Dose 20 MG; Start 07/21/18 at 21:00 Morphine Sulfate (morphine) 6 mg Q4H PRN PO PAIN LEVEL 7-10; Start 07/21/18 at 11:00 Vancomycin HCl (Vanco Iv Per Pharmacy) VANCOMYCIN PER PHARMACY PER PROTOCOL XX ; Start 07/23/18 at 09:00 Nifedipine (Procardia) 20 mg TID NGT Last administered on 07/25/18 08:10; Admin Dose 20 MG; Start 07/23/18 at 14:30 Vancomycin HCl 250 ml @ 125 mls/hr Q24H IVPB Last administered on 07/25/18at 11:00; Admin Dose 125 MLS/HR; Start 07/24/18 at 10:00 Lorazepam (Ativan) 1 mg Q4H PRN GTB AGITATION; Start 12/27/18 at 11:00 Assessment/Plan Chief Complaint/Hosp Course Assessment 1. Acute hypoxemic respiratory failure possible aspiration versus healthcare associated pneumonia 2. Encephalopathy toxic metabolic 3. Anemia questionable GI bleed 4. Mild renal insufficiency 5. Dysphagia Plan 1. Continue mechanical ventilation 2. Gentle diuresis 3. Decrease sedation as tolerated 4. May require trial of Precedex 5. Consider transfusion 1 unit packed red blood cells cc 40 mins. SPENSER RICO MD, [facility] Jul 25, 2018 11:40
[2018-07-25] MEDS: FUROSEMIDE 40 MG INJ IV SCH (12:18)
--- NOTE | 2018-07-25 13:39 | PN ---
Date/Time of Note Date/Time of Note DATE: 07/25/18 TIME: 13:38 Assessment/Plan VTE Prophylaxis Risk score (from Ns)>0 risk: 10 SCD applied (from Ns): Yes Pharmacological prophylaxis: LMWH Lines/Catheters IV Catheter Type (from Nrs): PICC Line Central line still needed: Yes Urinary Cath still in place: Yes Reason Cath still needed: skin wounds contaminated by urine Assessment/Plan Hospital Course 1) pneumonia - IV antibiotics 2) respiratory failure - on ventilator support - monitor clinically Result Diagram: 07/25/18 0500 07/25/18 0500 Results 24hrs Laboratory Tests Test 07/25/18 05:00 White Blood Count 9.9 Red Blood Count 2.47 L Hemoglobin 7.8 L Hematocrit 24.7 L Mean Corpuscular Volume 100.0 Mean Corpuscular Hemoglobin 31.6 Mean Corpuscular Hemoglobin Concent 31.6 L Red Cell Distribution Width 14.5 Platelet Count 167 Mean Platelet Volume 11.8 H Immature Granulocytes % 3.800 H Neutrophils % 86.2 H Lymphocytes % 4.6 L Monocytes % 3.9 Eosinophils % 1.4 Basophils % 0.1 Nucleated Red Blood Cells % 0.0 Immature Granulocytes # 0.380 H Neutrophils # 8.5 H Lymphocytes # 0.5 L Monocytes # 0.4 Eosinophils # 0.1 Basophils # 0.0 Nucleated Red Blood Cells # 0.0 Sodium Level 145 H Potassium Level 4.8 Chloride Level 116 H Carbon Dioxide Level 23 Anion Gap 6 Blood Urea Nitrogen 72 H Creatinine 1.64 H Est Glomerular Filtrat Rate mL/min Glucose Level 167 Calcium Level 8.4 Subjective 24 Hr Interval Summary Free Text/Dictation Patient is sedated and intubated Exam/Review of Systems Vital Signs Vitals Vital Signs Date Temp Pulse Resp B/P (MAP) Pulse Ox O2 O2 Flow FiO2 Time Delivery Rate 07/25/18 98.5 60 18 132/60 94 Mechanical 12:00 (84) Ventilator 07/25/18 40 08:00 Intake and Output 07/24/18 07/24/18 07/25/18 1515:00 23:00 07:00 IntakeIntake Total 865.824 ml 904.986 ml 1073.8 ml OutputOutput Total 300 ml 500 ml 335 ml BalanceBalance 565.824 ml 404.986 ml 738.8 ml Exam Constitutional: well developed Head: normocephalic, atraumatic Neck: supple Respiratory: diminished breath sounds Cardiovascular: regular rate and rhythm Gastrointestinal: soft, non-tender Extremities: normal pulses Medications Medications Current Medications IV Flush (NS 3 ml) 3 ml PER PROTOCOL IV ; Start 07/18/18 at 17:30 Ondansetron HCl (Zofran Inj) 4 mg Q6H PRN IV NAUSEA AND/OR VOMITING; Start 07/18/18 at 17:30 Acetaminophen (Tylenol Tab) 650 mg Q6H PRN PO PAIN LEVEL 1-3 OR FEVER; Start 07/18/18 at 17:30 Enoxaparin Sodium (Lovenox) 30 mg DAILY SC Last administered on 07/25/18at 08:1 5; Admin Dose 30 MG; Start 07/19/18 at 09:00 Atorvastatin Calcium (Lipitor) 40 mg QHS PO Last administered on 07/24/18 20:29; Admin Dose 40 MG; Start 07/18/18 at 21:00 Baclofen (Lioresal) 10 mg BID PO Last administered on 07/25/18 08:13; Admin Dose 10 MG; Start 07/18/18 at 21:00 Docusate Sodium (Colace) 100 mg BID PRN PO CONSTIPATION; Start 07/18/18 at 17:30 Donepezil HCl (Aricept) 5 mg DAILY PO Last administered on 07/25/18 08:13; Admin Dose 5 MG; Start 07/19/18 at 09:00 Doxazosin Mesylate (Cardura) 4 mg HS PO Last administered on 07/24/18 20:29; Admin Dose 4 MG; Start 07/18/18 at 21:00 Finasteride (Proscar) 5 mg DAILY PO Last administered on 07/25/18 08:13; Admin Dose 5 MG; Start 07/19/18 at 09:00 Fluticasone Propionate (Flonase 0.05% Nasal) 1 spray DAILY NASAL Last administered on 07/25/18 08:12; Admin Dose 1 SPRAY; Start 07/19/18 at 09:00 Cefepime HCl 50 ml @ 100 mls/hr Q12 IVPB Last administered on 07/25/18at 08:11; Admin Dose 100 MLS/HR; Start 07/18/18 at 21:00 Haloperidol (Haldol) 5 mg Q2H PRN IM AGITATION Last administered on 07/19/18 02:37; Admin Dose 5 MG; Start 07/18/18 at 23:30 Levofloxacin/ Dextrose 50 ml @ 50 mls/hr Q24H IVPB Last administered on 07/25/18 09:06; Admin Dose 50 MLS/HR; Start 07/19/18 at 10:00 Pregabalin (Lyrica) 50 mg DAILY PO Last administered on 07/25/18 08:12; Admin Dose 50 MG; Start 07/19/18 at 13:00 Propofol 100 ml @ 1.909 mls/ hr Q12H IV Last administered on 07/25/18 01:59; Admin Dose 8.4 MLS/HR; Start 07/19/18 at 14:00 Allopurinol (Zyloprim) 100 mg DAILY PO Last administered on 07/25/18 08:13; Admin Dose 100 MG; Start 07/21/18 at 09:00 Docusate Sodium (Colace Liquid Cup) 100 mg BID GTB Last administered on 07/25/18 08:11; Admin Dose 100 MG; Start 07/20/18 at 21:00 Fentanyl 100 ml @ 2.5 mls/hr TITRATE IV Last administered on 07/24/18 19:38; Admin Dose 5 MLS/HR; Start 07/21/18 at 08:00 Famotidine (Pepcid) 20 mg Q12 PO Last administered on 07/25/18 08:13; Admin Dose 20 MG; Start 07/21/18 at 21:00 Morphine Sulfate (morphine) 6 mg Q4H PRN PO PAIN LEVEL 7-10; Start 07/21/18 at 11:00 Vancomycin HCl (Vanco Iv Per Pharmacy) VANCOMYCIN PER PHARMACY PER PROTOCOL XX ; Start 07/23/18 at 09:00 Nifedipine (Procardia) 20 mg TID NGT Last administered on 07/25/18 12:17; Adm in Dose 20 MG; Start 07/23/18 at 14:30 Vancomycin HCl 250 ml @ 125 mls/hr Q24H IVPB Last administered on 07/25/18 11:00; Admin Dose 125 MLS/HR; Start 07/24/18 at 10:00 Lorazepam (Ativan) 1 mg Q4H PRN GTB AGITATION; Start 07/24/18 at 11:00 Furosemide (Lasix) 40 mg DAILY@0600 IV Last administered on 07/25/18at 12:18; Admin Dose 40 MG; Start 07/25/18 at 12:00 HARLEY STARR Jul 25, 2018 13:39
[2018-07-25] MEDS: FENTAnyl (DRIP) 1000 mcg/100mL 100 ML IV SCH (14:14)
--- NOTE | 2018-07-25 15:45 | CONS ---
Date/Time of Note Date/Time of Note DATE: 07/25/18 TIME: 15:45 Assessment/Plan Assessment/Plan Assessment/Plan 1. Acute renal failure due to ATN from sepsis + prerenal azotemia 2. Sepsis due to PNA 3. Acute Hypoxemic respiratory failure due to PNA - Intubated on ventilator 4. H/o CAD s/p previous stent placement 5. h/o Pacemaker placement 6. H/o HTN 7. H/o HL 8. H/o Chronic back pain, Prostate CA 9. Hypernatremia - now resolved 10. Hyperuricemia, on allopurinol Plan: Continue current care, adquate Urine output, pt is on IV lasix, monitor BUN/Cr and urine output BP has been stable, IV abx vancomycin and cefepime, renally dose all abx and monitor electrolytes Pulmonary to manage ventilator Monitor Hb and prn Transfusion will follow up Result Diagram: 07/25/18 0500 07/25/18 0500 Results 24hrs Laboratory Tests Test 07/25/18 05:00 White Blood Count 9.9 Red Blood Count 2.47 L Hemoglobin 7.8 L Hematocrit 24.7 L Mean Corpuscular Volume 100.0 Mean Corpuscular Hemoglobin 31.6 Mean Corpuscular Hemoglobin Concent 31.6 L Red Cell Distribution Width 14.5 Platelet Count 167 Mean Platelet Volume 11.8 H Immature Granulocytes % 3.800 H Neutrophils % 86.2 H Lymphocytes % 4.6 L Monocytes % 3.9 Eosinophils % 1.4 Basophils % 0.1 Nucleated Red Blood Cells % 0.0 Immature Granulocytes # 0.380 H Neutrophils # 8.5 H Lymphocytes # 0.5 L Monocytes # 0.4 Eosinophils # 0.1 Basophils # 0.0 Nucleated Red Blood Cells # 0.0 Sodium Level 145 H Potassium Level 4.8 Chloride Level 116 H Carbon Dioxide Level 23 Anion Gap 6 Blood Urea Nitrogen 72 H Creatinine 1.64 H Est Glomerular Filtrat Rate mL/min Glucose Level 167 Calcium Level 8.4 Consultation Date/Type/Reason Admit Date/Time Jul 18, 2018 at 16:57 Initial Consult Date 07/19/18 Type of Consult NEPHROLOGY Requesting Provider: HARLEY STARR 24 HR Interval Summary Free Text/Dictation pt remains intubated, BUn/Cr rising, Adequate urine output Exam/Review of Systems Vital Signs Vitals Vital Signs Date Temp Pulse Resp B/P (MAP) Pulse Ox O2 O2 Flow FiO2 Time Delivery Rate 07/25/18 61 12:00 07/25/18 98.5 18 132/60 94 Mechanical 12:00 (84) Ventilator 07/25/18 40 08:00 Intake and Output 07/24/18 07/24/18 07/25/18 1515:00 23:00 07:00 IntakeIntake Total 865.824 ml 904.986 ml 1087.2 ml OutputOutput Total 300 ml 500 ml 335 ml BalanceBalance 565.824 ml 404.986 ml 752.2 ml Exam Constitutional: non-verbal, other (Intubated on ventilator ) Eyes: other (ET tube in place ) ENMT: nl external ears & nose Neck: supple, jvd Respiratory: diminished breath sounds, other (Bilateral Coarse BS+) Cardiovascular: regular rate and rhythm Gastrointestinal: soft, non-tender Musculoskeletal: muscle weakness, swelling, other (Bilateral UE edema ) Neurological: other (Intubated, sedated on ventilator ) Medications Medications Current Medications IV Flush (NS 3 ml) 3 ml PER PROTOCOL IV ; Start 07/18/18 at 17:30 Ondansetron HCl (Zofran Inj) 4 mg Q6H PRN IV NAUSEA AND/OR VOMITING; Start 07/18/18 at 17:30 Acetaminophen (Tylenol Tab) 650 mg Q6H PRN PO PAIN LEVEL 1-3 OR FEVER; Start 07/18/18 at 17:30 Enoxaparin Sodium (Lovenox) 30 mg DAILY SC Last administered on 07/25/18at 08:15; Admin Dose 30 MG; Start 07/19/18 at 09:00 Atorvastatin Calcium (Lipitor) 40 mg QHS PO Last administered on 07/24/18at 20:29; Admin Dose 40 MG; Start 07/18/18 at 21:00 Baclofen (Lioresal) 10 mg BID PO Last administered on 07/25/18at 08:13; Admin Dose 10 MG; Start 07/18/18 at 21:00 Docusate Sodium (Colace) 100 mg BID PRN PO CONSTIPATION; Start 07/18/18 at 17:30 Donepezil HCl (Aricept) 5 mg DAILY PO Last administered on 07/25/18at 08:13; Admin Dose 5 MG; Start 07/19/18 at 09:00 Doxazosin Mesylate (Cardura) 4 mg HS PO Last administered on 07/24/18 20:29; Admin Dose 4 MG; Start 07/18/18 at 21:00 Finasteride (Proscar) 5 mg DAILY PO Last administered on 07/25/18 08:13; Admin Dose 5 MG; Start 07/19/18 at 09:00 Fluticasone Propionate (Flonase 0.05% Nasal) 1 spray DAILY NASAL Last administered on 07/25/18 08:12; Admin Dose 1 SPRAY; Start 07/19/18 at 09:00 Cefepime HCl 50 ml @ 100 mls/hr Q12 IVPB Last administered on 07/25/18 08:11; Admin Dose 100 MLS/HR; Start 07/18/18 at 21:00 Haloperidol (Haldol) 5 mg Q2H PRN IM AGITATION Last administered on 07/19/18 02:37; Admin Dose 5 MG; Start 07/18/18 at 23:30 Levofloxacin/ Dextrose 50 ml @ 50 mls/hr Q24H IVPB Last administered on 07/25/18 09:06; Admin Dose 50 MLS/HR; Start 07/19/18 at 10:00 Pregabalin (Lyrica) 50 mg DAILY PO Last administered on 07/25/18 08:12; Admin Dose 50 MG; Start 07/19/18 at 13:00 Propofol 100 ml @ 1.909 mls/ hr Q12H IV Last administered on 07/25/18 14:02; Admin Dose 8.4 MLS/HR; Start 07/19/18 at 14:00 Allopurinol (Zyloprim) 100 mg DAILY PO Last administered on 07/25/18 08:13; Admin Dose 100 MG; Start 07/21/18 at 09:00 Docusate Sodium (Colace Liquid Cup) 100 mg BID GTB Last administered on 07/25/18 08:11; Admin Dose 100 MG; Start 07/20/18 at 21:00 Fentanyl 100 ml @ 2.5 mls/hr TITRATE IV Last administered on 07/25/18 14:14; Admin Dose 5 MLS/HR; Start 07/21/18 at 08:00 Famotidine (Pepcid) 20 mg Q12 PO Last administered on 07/25/18at 08:13; Admin Dose 20 MG; Start 07/21/18 at 21:00 Morphine Sulfate (morphine) 6 mg Q4H PRN PO PAIN LEVEL 7-10; Start 07/21/18 at 11:00 Vancomycin HCl (Vanco Iv Per Pharmacy) VANCOMYCIN PER PHARMACY PER PROTOCOL XX ; Start 07/23/18 at 09:00 Nifedipine (Procardia) 20 mg TID NGT Last administered on 07/25/18at 12:17; Admin Dose 20 MG; Start 07/23/18 at 14:30 Vancomycin HCl 250 ml @ 125 mls/hr Q24H IVPB Last administered on 07/25/18at 11:00; Admin Dose 125 MLS/HR; Start 07/24/18 at 10:00 Lorazepam (Ativan) 1 mg Q4H PRN GTB AGITATION; Start 07/24/18 at 11:00 Furosemide (Lasix) 40 mg DAILY@0600 IV Last administered on 07/25/18at 12:18; Admin Dose 40 MG; Start 07/25/18 at 12:00 Miscellaneous Information (*Rx Drug Level Order Reminder*) VANCO TROUGH @ 0,900 ONCE ONCE XX ; Start 07/26/18 at 09:00; Stop 07/26/18 at 09:01 FELICIANO RAMIREZ MD Jul 25, 2018 15:45
[2018-07-25] MEDS: ATORVASTATIN 40 MG TAB PO SCH (20:19)
[2018-07-25] MEDS: DOXAZOSIN 4 MG TAB PO SCH (23:35)
[2018-07-26] VITALS (36 sets, daily range): BP systolic 103–140; BP diastolic 48–72; PULSE 60–90; RESP 10–25
[2018-07-26] MEDS: FENTAnyl (DRIP) 1000 mcg/100mL 100 ML IV SCH (04:53)
[2018-07-26] MEDS: FUROSEMIDE 40 MG INJ IV SCH (05:32)
[2018-07-26] MEDS: DOCUSATE SODIUM 10 MG/ML (10ML CUP) GTB SCH ×2 (08:47→20:31)
[2018-07-26] MEDS: DONEPEZIL 5 MG TAB PO SCH (08:47)
[2018-07-26] MEDS: FAMOTIDINE 20 MG TAB PO SCH ×2 (08:47→20:32)
[2018-07-26] MEDS: FINASTERIDE 5 MG TAB PO SCH (08:48)
[2018-07-26] MEDS: ALLOPURINOL 100 MG TAB PO SCH (08:48)
[2018-07-26] MEDS: BACLOFEN 10 MG TAB PO SCH ×2 (08:48→20:32)
[2018-07-26] MEDS: PREGABALIN 50 MG CAP PO SCH (08:48)
[2018-07-26] MEDS: NIFEdipine 10 MG CAP NGT SCH ×3 (08:49→20:32)
[2018-07-26] MEDS: CEFEPIME 2GM/50 ML (PMX) 50 ML IVPB SCH ×2 (08:49→20:31)
[2018-07-26] MEDS: ENOXAPARIN 30 MG/0.3 ML SYG SC SCH (08:50)
[2018-07-26] MEDS: BALSAM PERU/CASTOR OIL 60 GM TUBE TOP SCH ×2 (08:51→20:32)
[2018-07-26] MEDS: FLUTICASONE 0.05% 16 GM NAS SPRAY NASAL SCH (08:51)
[2018-07-26] MEDS: LEVOFLOXACIN 250MG/D5W (PMX) 50 ML IVPB SCH (09:55)
[2018-07-26] MEDS: PROPOFOL 100 ML IV SCH (09:56)
--- NOTE | 2018-07-26 10:03 | CONS ---
Date/Time of Note Date/Time of Note DATE: 07/26/18 TIME: 10:03 Assessment/Plan Assessment/Plan Assessment/Plan 1. Acute renal failure due to ATN from sepsis + prerenal azotemia 2. Sepsis due to PNA 3. Acute Hypoxemic respiratory failure due to PNA - Intubated on ventilator 4. H/o CAD s/p previous stent placement 5. h/o Pacemaker placement 6. H/o HTN 7. H/o HL 8. H/o Chronic back pain, Prostate CA 9. Hypernatremia - now resolved 10. Hyperuricemia, on allopurinol Plan: Continue current care, adquate Urine output, pt is on IV lasix, Rising BUN/Cr , if conitnues to have elevated BUn, then we will stop IV lasix IV abx vancomycin and cefepime, renally dose all abx and monitor electrolytes Pulmonary to manage ventilator Monitor Hb and prn Transfusion will follow up Result Diagram: 07/26/18 0923 07/26/18 0436 Results 24hrs Laboratory Tests Test 07/26/18 04:36 07/26/18 09:23 Sodium Level 147 H Potassium Level 4.4 Chloride Level 112 H Carbon Dioxide Level 24 Anion Gap 11 Blood Urea Nitrogen 92 H Creatinine 2.43 H Est Glomerular Filtrat Rate mL/min Glucose Level 155 Calcium Level 8.5 Phosphorus Level 6.0 H Magnesium Level 3.1 H White Blood Count 9.4 Red Blood Count 2.54 L Hemoglobin 8.1 L Hematocrit 25.2 L Mean Corpuscular Volume 99.2 Mean Corpuscular Hemoglobin 31.9 Mean Corpuscular Hemoglobin Concent 32.1 Red Cell Distribution Width 14.4 Platelet Count 148 Mean Platelet Volume 12.1 H Immature Granulocytes % 5.500 H Neutrophils % 78.5 H Lymphocytes % 7.4 L Monocytes % 5.8 Eosinophils % 2.5 Basophils % 0.3 Nucleated Red Blood Cells % 0.3 H Immature Granulocytes # 0.520 H Neutrophils # 7.4 Lymphocytes # 0.7 L Monocytes # 0.6 Eosinophils # 0.2 Basophils # 0.0 Nucleated Red Blood Cells # 0.0 Consultation Date/Type/Reason Admit Date/Time Jul 18, 2018 at 16:57 Initial Consult Date 07/19/18 Type of Consult NEPHROLOGY Requesting Provider: HARLEY STARR 24 HR Interval Summary Free Text/Dictation remains intubated, rising BUN/cr, urine output around 1 L Exam/Review of Systems Vital Signs Vitals Vital Signs Date Temp Pulse Resp B/P (MAP) Pulse Ox O2 O2 Flow FiO2 Time Delivery Rate 07/26/18 40 08:00 07/26/18 80 08:00 07/26/18 15 130/55 97 Mechanical 06:00 (80) Ventilator 07/26/18 99.3 04:00 Intake and Output 07/25/18 07/25/18 07/26/18 1515:00 23:00 07:00 IntakeIntake Total 1056.75 ml 887.2 ml 1000.4 ml OutputOutput Total 485 ml 470 ml 140 ml BalanceBalance 571.75 ml 417.2 ml 860.4 ml Exam Constitutional: non-verbal, other (Intubated on ventilator ) Eyes: other (ET tube in place ), NG tube place Respiratory: diminished breath sounds, other (Bilateral Coarse BS+) Cardiovascular: regular rate and rhythm Gastrointestinal: soft, non-tender Musculoskeletal: muscle weakness, swelling, other (Bilateral UE edema ) Neurological: other (Intubated, sedated on ventilator ) Medications Medications Current Medications IV Flush (NS 3 ml) 3 ml PER PROTOCOL IV ; Start 07/18/18 at 17:30 Ondansetron HCl (Zofran Inj) 4 mg Q6H PRN IV NAUSEA AND/OR VOMITING; Start at 17:30 Acetaminophen (Tylenol Tab) 650 mg Q6H PRN PO PAIN LEVEL 1-3 OR FEVER; Start 07/18/18 at 17:30 Enoxaparin Sodium (Lovenox) 30 mg DAILY SC Last administered on 07/26/18at 08:50; Admin Dose 30 MG; Start 07/19/18 at 09:00 Atorvastatin Calcium (Lipitor) 40 mg QHS PO Last administered on 07/25/18at 20:19; Admin Dose 40 MG; Start 07/18/18 at 21:00 Baclofen (Lioresal) 10 mg BID PO Last administered on 07/26/18at 08:48; Admin Dose 10 MG; Start 07/18/18 at 21:00 Docusate Sodium (Colace) 100 mg BID PRN PO CONSTIPATION; Start 07/18/18 at 17:30 Donepezil HCl (Aricept) 5 mg DAILY PO Last administered on 07/26/18 08:47; Admin Dose 5 MG; Start 07/19/18 at 09:00 Doxazosin Mesylate (Cardura) 4 mg HS PO Last administered on 07/25/18 23:35; Admin Dose 4 MG; Start 07/18/18 at 21:00 Finasteride (Proscar) 5 mg DAILY PO Last administered on 07/26/18 08:48; Admin Dose 5 MG; Start 07/19/18 at 09:00 Fluticasone Propionate (Flonase 0.05% Nasal) 1 spray DAILY NASAL Last admin istered on 07/25/18 08:12; Admin Dose 1 SPRAY; Start 07/19/18 at 09:00 Cefepime HCl 50 ml @ 100 mls/hr Q12 IVPB Last administered on 07/26/18 08:49; Admin Dose 100 MLS/HR; Start 07/18/18 at 21:00 Haloperidol (Haldol) 5 mg Q2H PRN IM AGITATION Last administered on 07/19/18 02:37; Admin Dose 5 MG; Start 07/18/18 at 23:30 Levofloxacin/ Dextrose 50 ml @ 50 mls/hr Q24H IVPB Last administered on 07/26/18 09:55; Admin Dose 50 MLS/HR; Start 07/19/18 at 10:00 Pregabalin (Lyrica) 50 mg DAILY PO Last administered on 07/26/18 08:48; Admin Dose 50 MG; Start 07/19/18 at 13:00 Propofol 100 ml @ 1.909 mls/ hr Q12H IV Last administered on 07/26/18 09:56; Admin Dose 3.818 MLS/HR; Start 07/19/18 at 14:00 Allopurinol (Zyloprim) 100 mg DAILY PO Last administered on 07/26/18 08:48; A dmin Dose 100 MG; Start 07/21/18 at 09:00 Docusate Sodium (Colace Liquid Cup) 100 mg BID GTB Last administered on 07/26/18 08:47; Admin Dose 100 MG; Start 07/20/18 at 21:00 Fentanyl 100 ml @ 2.5 mls/hr TITRATE IV Last administered on 07/26/18 04:53; Admin Dose 5 MLS/HR; Start 07/21/18 at 08:00 Famotidine (Pepcid) 20 mg Q12 PO Last administered on 07/26/18at 08:47; Admin Dose 20 MG; Start 07/21/18 at 21:00 Morphine Sulfate (morphine) 6 mg Q4H PRN PO PAIN LEVEL 7-10; Start 07/21/18 at 11:00 Vancomycin HCl (Vanco Iv Per Pharmacy) VANCOMYCIN PER PHARMACY PER PROTOCOL XX ; Start 07/23/18 at 09:00 Nifedipine (Procardia) 20 mg TID NGT Last administered on 07/26/18at 08:49; Admin Dose 20 MG; Start 07/23/18 at 14:30 Vancomycin HCl 250 ml @ 125 mls/hr Q24H IVPB Last administered on 07/25/18at 11:00; Admin Dose 125 MLS/HR; Start 07/24/18 at 10:00 Lorazepam (Ativan) 1 mg Q4H PRN GTB AGITATION; Start 07/24/18 at 11:00 Furosemide (Lasix) 40 mg DAILY@0600 IV Last administered on 07/26/18at 05:32; Admin Dose 40 MG; Start 07/25/18 at 12:00 FELICIANO RAMIREZ MD Jul 26, 2018 10:03
--- NOTE | 2018-07-26 11:06 | PN ---
Date/Time of Note Date/Time of Note DATE: 07/26/18 TIME: 11:06 Assessment/Plan VTE Prophylaxis Risk score (from Ns)>0 risk: 11 SCD applied (from Ns): Yes Pharmacological prophylaxis: LMWH Lines/Catheters IV Catheter Type (from Nrs): PICC Line Central line still needed: Yes Urinary Cath still in place: Yes Reason Cath still needed: skin wounds contaminated by urine Assessment/Plan Hospital Course 1) pneumonia - IV antibiotics 2) respiratory failure - on ventilator support - monitor clinically Result Diagram: 07/26/18 0923 07/26/18 0436 Results 24hrs Laboratory Tests Test 07/26/18 04:36 07/26/18 09:23 Sodium Level 147 H Potassium Level 4.4 Chloride Level 112 H Carbon Dioxide Level 24 Anion Gap 11 Blood Urea Nitrogen 92 H Creatinine 2.43 H Est Glomerular Filtrat Rate mL/min Glucose Level 155 Calcium Level 8.5 Phosphorus Level 6.0 H Magnesium Level 3.1 H White Blood Count 9.4 Red Blood Count 2.54 L Hemoglobin 8.1 L Hematocrit 25.2 L Mean Corpuscular Volume 99.2 Mean Corpuscular Hemoglobin 31.9 Mean Corpuscular Hemoglobin Concent 32.1 Red Cell Distribution Width 14.4 Platelet Count 148 Mean Platelet Volume 12.1 H Immature Granulocytes % 5.500 H Neutrophils % 78.5 H Lymphocytes % 7.4 L Monocytes % 5.8 Eosinophils % 2.5 Basophils % 0.3 Nucleated Red Blood Cells % 0.3 H Immature Granulocytes # 0.520 H Neutrophils # 7.4 Lymphocytes # 0.7 L Monocytes # 0.6 Eosinophils # 0.2 Basophils # 0.0 Nucleated Red Blood Cells # 0.0 Vancomycin Level Trough 22.4 *H Subjective 24 Hr Interval Summary Free Text/Dictation Patient is comfortable, sedated and intubated Exam/Review of Systems Vital Signs Vitals Vital Signs Date Temp Pulse Resp B/P (MAP) Pulse Ox O2 O2 Flow FiO2 Time Delivery Rate 07/26/18 80 10 115/57 10:00 (76) 07/26/18 96 Mechanical 09:00 Ventilator 07/26/18 40 08:00 07/26/18 99.0 08:00 Intake and Output 07/25/18 07/25/18 07/26/18 1515:00 23:00 07:00 IntakeIntake Total 1056.75 ml 887.2 ml 1013.8 ml OutputOutput Total 485 ml 470 ml 140 ml BalanceBalance 571.75 ml 417.2 ml 873.8 ml Exam Constitutional: well developed Head: normocephalic, atraumatic Neck: supple Respiratory: diminished breath sounds Cardiovascular: regular rate and rhythm Gastrointestinal: soft, non-tender Extremities: normal pulses Medications Medications Current Medications IV Flush (NS 3 ml) 3 ml PER PROTOCOL IV ; Start 07/18/18 at 17:30 Ondansetron HCl (Zofran Inj) 4 mg Q6H PRN IV NAUSEA AND/OR VOMITING; Start 07/18/18 at 17:30 Acetaminophen (Tylenol Tab) 650 mg Q6H PRN PO PAIN LEVEL 1-3 OR FEVER; Start 1 09/18/17 at 17:30 Enoxaparin Sodium (Lovenox) 30 mg DAILY SC Last administered on 07/26/18at 08:50; Admin Dose 30 MG; Start 07/19/18 at 09:00 Atorvastatin Calcium (Lipitor) 40 mg QHS PO Last administered on 07/25/18at 20:19; Admin Dose 40 MG; Start 07/18/18 at 21:00 Baclofen (Lioresal) 10 mg BID PO Last administered on 07/26/18 08:48; Admin Dose 10 MG; Start 07/18/18 at 21:00 Docusate Sodium (Colace) 100 mg BID PRN PO CONSTIPATION; Start 07/18/18 at 17:30 Donepezil HCl (Aricept) 5 mg DAILY PO Last administered on 07/26/18 08:47; Admin Dose 5 MG; Start 07/19/18 at 09:00 Doxazosin Mesylate (Cardura) 4 mg HS PO Last administered on 07/25/18at 23:35; Admin Dose 4 MG; Start 07/18/18 at 21:00 Finasteride (Proscar) 5 mg DAILY PO Last administered on 07/26/18 08:48; Admin Dose 5 MG; Start 07/19/18 at 09:00 Fluticasone Propionate (Flonase 0.05% Nasal) 1 spray DAILY NASAL Last administered on 07/25/18at 08:12; Admin Dose 1 SPRAY; Start 07/19/18 at 09:00 Cefepime HCl 50 ml @ 100 mls/hr Q12 IVPB Last administered on 07/26/18 08:49; Admin Dose 100 MLS/HR; Start 07/18/18 at 21:00 Haloperidol (Haldol) 5 mg Q2H PRN IM AGITATION Last administered on 07/19/18 02:37; Admin Dose 5 MG; Start 07/18/18 at 23:30 Levofloxacin/ Dextrose 50 ml @ 50 mls/hr Q24H IVPB Last administered on 07/26/18 09:55; Admin Dose 50 MLS/HR; Start 07/19/18 at 10:00 Pregabalin (Lyrica) 50 mg DAILY PO Last administered on 07/26/18 08:48; Admin Dose 50 MG; Start 07/19/18 at 13:00 Propofol 100 ml @ 1.909 mls/ hr Q12H IV Last administered on 07/26/18 09:56; Admin Dose 3.818 MLS/HR; Start 07/19/18 at 14:00 Allopurinol (Zyloprim) 100 mg DAILY PO Last administered on 07/26/18 08:48; Admin Dose 100 MG; Start 07/21/18 at 09:00 Docusate Sodium (Colace Liquid Cup) 100 mg BID GTB Last administered on 07/26/18 08:47; Admin Dose 100 MG; Start 07/20/18 at 21:00 Fentanyl 100 ml @ 2.5 mls/hr TITRATE IV Last administered on 07/26/18 04:53; Admin Dose 5 MLS/HR; Start 07/21/18 at 08:00 Famotidine (Pepcid) 20 mg Q12 PO Last administered on 07/26/18 08:47; Admin Dose 20 MG; Start 07/21/18 at 21:00 Morphine Sulfate (morphine) 6 mg Q4H PRN PO PAIN LEVEL 7-10; Start 07/21/18 at 11:00 Vancomycin HCl (Vanco Iv Per Pharmacy) VANCOMYCIN PER PHARMACY PER PROTOCOL XX ; Start 07/23/18 at 09:00 Nifedipine (Procardia) 20 mg TID NGT Last administered on 07/26/18 08:49; Admin Dose 20 MG; Start 07/23/18 at 14:30 Lorazepam (Ativan) 1 mg Q4H PRN GTB AGITATION; Start 07/24/18 at 11:00 Furosemide (Lasix) 20 mg BID DIURETICS IV ; Start 07/26/18 at 18:00 HARLEY STARR Jul 26, 2018 11:06
--- NOTE | 2018-07-26 11:32 | CONS ---
Date/Time of Note Date/Time of Note DATE: 07/26/18 TIME: 11:29 Consult Date/Type/Reason Admit Date/Time Jul 18, 2018 at 16:57 Initial Consult Date 07/19/18 Type of Consultation: Pulm/CCM Requesting Provider: HARLEY STARR Subjective Failed weaning trial this am. No events overnight. Remains on sedation. Creatinine rise noted. Objective Vital Signs Date Temp Pulse Resp B/P (MAP) Pulse Ox O2 O2 Flow FiO2 Time Delivery Rate 07/26/18 80 10 115/57 10:00 (76) 07/26/18 96 Mechanical 09:00 Ventilator 07/26/18 40 08:00 07/26/18 99.0 08:00 Intake and Output 07/25/18 07/25/18 07/26/18 1515:00 23:00 07:00 IntakeIntake Total 1056.75 ml 887.2 ml 1013.8 ml OutputOutput Total 485 ml 470 ml 140 ml BalanceBalance 571.75 ml 417.2 ml 873.8 ml Exam NECK: Supple. No JVD or lymphadenopathy. + ET tube in place CARDIAC EXAM: Paced S1, S2. No added sounds or murmurs. CHEST: Diminished air entry bilaterally ABDOMEN: Soft, nontender. No guarding or rebound. EXTREMITIES: No cyanosis, clubbing or edema. NEUROLOGIC: Generalized weakness. No focal deficits. Results/Medications Result Diagram: 07/26/18 0923 07/26/18 0436 Results 24 hrs Laboratory Tests Test 07/26/18 04:36 07/26/18 09:23 Sodium Level 147 H Potassium Level 4.4 Chloride Level 112 H Carbon Dioxide Level 24 Anion Gap 11 Blood Urea Nitrogen 92 H Creatinine 2.43 H Est Glomerular Filtrat Rate mL/min Glucose Level 155 Calcium Level 8.5 Phosphorus Level 6.0 H Magnesium Level 3.1 H White Blood Count 9.4 Red Blood Count 2.54 L Hemoglobin 8.1 L Hematocrit 25.2 L Mean Corpuscular Volume 99.2 Mean Corpuscular Hemoglobin 31.9 Mean Corpuscular Hemoglobin Concent 32.1 Red Cell Distribution Width 14.4 Platelet Count 148 Mean Platelet Volume 12.1 H Immature Granulocytes % 5.500 H Neutrophils % 78.5 H Lymphocytes % 7.4 L Monocytes % 5.8 Eosinophils % 2.5 Basophils % 0.3 Nucleated Red Blood Cells % 0.3 H Immature Granulocytes # 0.520 H Neutrophils # 7.4 Lymphocytes # 0.7 L Monocytes # 0.6 Eosinophils # 0.2 Basophils # 0.0 Nucleated Red Blood Cells # 0.0 Vancomycin Level Trough 22.4 *H Medications Current Medications IV Flush (NS 3 ml) 3 ml PER PROTOCOL IV ; Start 07/18/18 at 17:30 Ondansetron HCl (Zofran Inj) 4 mg Q6H PRN IV NAUSEA AND/OR VOMITING; Start 07/18/18 at 17:30 Acetaminophen (Tylenol Tab) 650 mg Q6H PRN PO PAIN LEVEL 1-3 OR FEVER; Start 07/18/18 at 17:30 Enoxaparin Sodium (Lovenox) 30 mg DAILY SC Last administered on 07/26/18 08:50; Admin Dose 30 MG; Start 07/19/18 at 09:00 Atorvastatin Calcium (Lipitor) 40 mg QHS PO Last administered on 07/25/18 20:19; Admin Dose 40 MG; Start 07/18/18 at 21:00 Baclofen (Lioresal) 10 mg BID PO Last administered on 07/26/18 08:48; Admin Dose 10 MG; Start 07/18/18 at 21:00 Docusate Sodium (Colace) 100 mg BID PRN PO CONSTIPATION; Start 07/18/18 at 17:30 Donepezil HCl (Aricept) 5 mg DAILY PO Last administered on 07/26/18 08:47; Admin Dose 5 MG; Start 07/19/18 at 09:00 Doxazosin Mesylate (Cardura) 4 mg HS PO Last administered on 07/25/18 23:35; Admin Dose 4 MG; Start 07/18/18 at 21:00 Finasteride (Proscar) 5 mg DAILY PO Last administered on 07/26/18 08:48; Admin Dose 5 MG; Start 07/19/18 at 09:00 Fluticasone Propionate (Flonase 0.05% Nasal) 1 spray DAILY NASAL Last administered on 07/25/18 08:12; Admin Dose 1 SPRAY; Start 07/19/18 at 09:00 Cefepime HCl 50 ml @ 100 mls/hr Q12 IVPB Last administered on 07/26/18 08:49; Admin Dose 100 MLS/HR; Start 07/18/18 at 21:00 Haloperidol (Haldol) 5 mg Q2H PRN IM AGITATION Last administered on 07/19/18at 02:37; Admin Dose 5 MG; Start 07/18/18 at 23:30 Levofloxacin/ Dextrose 50 ml @ 50 mls/hr Q24H IVPB Last administered on 07/26/18 09:55; Admin Dose 50 MLS/HR; Start 07/19/18 at 10:00 Pregabalin (Lyrica) 50 mg DAILY PO Last administered on 07/26/18 08:48; Admin Dose 50 MG; Start 07/19/18 at 13:00 Propofol 100 ml @ 1.909 mls/ hr Q12H IV Last administered on 07/26/18 09:56; Admin Dose 3.818 MLS/HR; Start 07/19/18 at 14:00 Allopurinol (Zyloprim) 100 mg DAILY PO Last administered on 07/26/18 08:48; Admin Dose 100 MG; Start 07/21/18 at 09:00 Docusate Sodium (Colace Liquid Cup) 100 mg BID GTB Last administered on 07/26/18 08:47; Admin Dose 100 MG; Start 07/20/18 at 21:00 Fentanyl 100 ml @ 2.5 mls/hr TITRATE IV Last administered on 07/26/18 04:53; Admin Dose 5 MLS/HR; Start 07/21/18 at 08:00 Famotidine (Pepcid) 20 mg Q12 PO Last administered on 07/26/18 08:47; Admin Dose 20 MG; Start 07/21/18 at 21:00 Morphine Sulfate (morphine) 6 mg Q4H PRN PO PAIN LEVEL 7-10; Start 07/21/18 at 11:00 Vancomycin HCl (Vanco Iv Per Pharmacy) VANCOMYCIN PER PHARMACY PER PROTOCOL XX ; Start 07/23/18 at 09:00 Nifedipine (Procardia) 20 mg TID NGT Last administered on 07/26/18 08:49; Admin Dose 20 MG; Start 07/23/18 at 14:30 Lorazepam (Ativan) 1 mg Q4H PRN GTB AGITATION; Start 07/24/18 at 11:00 Furosemide (Lasix) 20 mg BID DIURETICS IV ; Start 07/26/18 at 18:00 Assessment/Plan Additional Assessment/Plan IMP: 1. Acute hypoxemic respiratory failure possible aspiration versus healthcare associated pneumonia 2. Encephalopathy toxic metabolic 3. Anemia questionable GI bleed 4. MYKE 5. Dysphagia RECS: 1. D/C Vanco 2. Obtain urine Fe urea 3. D/C lasix 4. Obtain ECHO 5. Continue vent support cc 40 mins. CHRIS BILL MD Jul 26, 2018 11:32
[2018-07-26] MEDS ORDERED: GLUCOSE GEL 15 GRAM TUBE PO PRN ×2 (14:30)
[2018-07-26] MEDS ORDERED: GLUCAGON 1 MG INJ IM PRN (14:30)
[2018-07-26] MEDS ORDERED: DEXTROSE 50% 50 ML SYRINGE IV PRN ×2 (14:30)
[2018-07-26] MEDS ORDERED: GLUCOSE GEL 15 GRAM TUBE BUCCAL PRN (14:30)
[2018-07-26] MEDS: INSULIN ASPART [NOVOLOG] 3 ML PEN SC SCH ×2 (16:41→20:43)
[2018-07-26] MEDS ORDERED: FUROSEMIDE 20 MG INJ IV SCH (18:00)
[2018-07-26] MEDS: ATORVASTATIN 40 MG TAB PO SCH (20:31)
[2018-07-26] MEDS: DOXAZOSIN 4 MG TAB PO SCH (20:32)
[2018-07-27] VITALS (35 sets, daily range): BP systolic 105–145; BP diastolic 48–72; PULSE 59–96; RESP 13–31
[2018-07-27] MEDS: INSULIN ASPART [NOVOLOG] 3 ML PEN SC SCH ×6 (01:15→21:00)
[2018-07-27] MEDS: PROPOFOL 100 ML IV SCH ×2 (02:15→16:22)
[2018-07-27] MEDS: FLUTICASONE 0.05% 16 GM NAS SPRAY NASAL SCH (09:00)
--- NOTE | 2018-07-27 09:06 | CONS ---
Date/Time of Note Date/Time of Note DATE: 07/27/18 TIME: 09:05 Assessment/Plan Assessment/Plan Assessment/Plan 1. Acute renal failure due to ATN from sepsis + prerenal azotemia 2. Sepsis due to PNA 3. Acute Hypoxemic respiratory failure due to PNA - Intubated on ventilator 4. H/o CAD s/p previous stent placement 5. h/o Pacemaker placement 6. H/o HTN 7. H/o HL 8. H/o Chronic back pain, Prostate CA 9. Hypernatremia - now resolved 10. Hyperuricemia, on allopurinol Plan: IV lasix and IV vancomycin stopped yesterday, BUN/cr rising, urine output dropped to 600cc- will give IV albumin 25% 100ml iV x 1 then 1 liter NS after that at 80 cc/hr Renally dose all abx and monitor electrolytes, dietary to look at tube feeding Pulmonary to manage ventilator K has been stable and Hco3 normal, will monitor renal function will follow up Result Diagram: 07/27/18 0410 07/27/18 0410 Results 24hrs Laboratory Tests Test 07/26/18 09:23 07/26/18 11:34 07/26/18 13:47 07/26/18 14:00 White Blood 9.4 Count Red Blood Count 2.54 L Hemoglobin 8.1 L Hematocrit 25.2 L Mean 99.2 Corpuscular Volume Mean 31.9 Corpuscular Hemoglobin Mean 32.1 Corpuscular Hemoglobin Conc ent Red Cell 14.4 Distribution Width Platelet Count 148 Mean Platelet 12.1 H Volume Immature 5.500 H Granulocytes % Neutrophils % 78.5 H Lymphocytes % 7.4 L Monocytes % 5.8 Eosinophils % 2.5 Basophils % 0.3 Nucleated Red 0.3 H Blood Cells % Immature 0.520 H Granulocytes # Neutrophils # 7.4 Lymphocytes # 0.7 L Monocytes # 0.6 Eosinophils # 0.2 Basophils # 0.0 Nucleated Red 0.0 Blood Cells # Vancomycin 22.4 *H Level Trough Lab Scanned REFERENCE LAB Report Bedside Glucose 202 Urine Random 29.47 Creatinine Urine Random 394 Urea Nitrogen Test 07/26/18 16:30 07/26/18 20:38 07/27/18 01:12 07/27/18 04:10 Bedside Glucose 181 160 161 White Blood 10.1 Count Red Blood Count 2.31 L Hemoglobin 7.3 L Hematocrit 22.9 L Mean 99.1 Corpuscular Volume Mean 31.6 Corpuscular Hemoglobin Mean 31.9 L Corpuscular Hemoglobin Conc ent Red Cell 14.2 Distribution Width Platelet Count 135 L Mean Platelet 12.6 H Volume Immature 4.400 H Granulocytes % Neutrophils % 83.7 H Lymphocytes % 3.6 L Monocytes % 5.8 Eosinophils % 2.3 Basophils % 0.2 Nucleated Red 0.2 H Blood Cells % Immature 0.450 H Granulocytes # Neutrophils # 8.5 H Lymphocytes # 0.4 L Monocytes # 0.6 Eosinophils # 0.2 Basophils # 0.0 Nucleated Red 0.0 Blood Cells # Sodium Level 143 Potassium Level 4.5 Chloride Level 113 H Carbon Dioxide 22 Level Anion Gap 8 Blood Urea 111 H Nitrogen Creatinine 3.42 H Est Glomerular Filtrat Rate mL/min Glucose Level 161 Calcium Level 8.7 Random 19.1 Vancomycin Level Test 07/27/18 04:49 07/27/18 05:00 Bedside Glucose 171 Blood Gas Blood arterial Specimen Source Arterial Blood 07/27/2018 5:40 Date Drawn :45 AM Arterial Blood 7.360 pH (Temp corrected ) Arterial Blood 37.4 pCO2 (Temp correct) Arterial Blood 89.6 pO2 (Temp corrected ) Arterial Blood 20.7 L HCO3 Arterial Blood -4.4 L Base Excess Arterial Blood 95.7 Oxygen Saturati on Margarito Test ACCEPTAB Arterial Blood Right Radial Gas Puncture Site Arterial 0.1 Blood Carboxyhe moglobin Arterial Blood 0.5 Methemoglobin Blood Gas A-a 152.6 H O2 Differential Oxyhemoglobin 95.1 Percent Blood Gas 37.0 Temperature Blood Gas 16.0 Respiration Rate Blood Gas 19 Actual Respiration Rat e Blood Gas VENT - AC Modality FiO2 40.0 Blood Gas Tidal 500.0 Volume Blood Gas Low 5.0 PEEP Setting Blood Gas MA Notified Whom Blood Gas 07/27/2018 5:55 Notified Time :29 AM Consultation Date/Type/Reason Admit Date/Time Jul 18, 2018 at 16:57 Initial Consult Date 07/19/18 Type of Consult NEPHROLOGY Requesting Provider: HARLEY STARR 24 HR Interval Summary Free Text/Dictation BUN/Cr rising up, Urine output dropped to 600 cc in last 24 hr , BP stable, Hb dropped to 7.3 Exam/Review of Systems Vital Signs Vitals Vital Signs Date Temp Pulse Resp B/P (MAP) Pulse Ox O2 O2 Flow FiO2 Time Delivery Rate 07/27/18 85 08:14 07/27/18 19 121/64 98 Mechanical 06:00 (83) Ventilator 07/27/18 40 05:35 07/27/18 97.9 04:00 Intake and Output 07/26/18 07/26/18 07/27/18 1515:00 23:00 07:00 IntakeIntake Total 878.318 ml 610.985 ml 729.567 ml OutputOutput Total 375 ml 160 ml 70 ml BalanceBalance 503.318 ml 450.985 ml 659.567 ml Exam Constitutional: non-verbal, other (Intubated on ventilator ) Eyes: other (ET tube in place ), NG tube place Respiratory: diminished breath sounds, other (Bilateral Coarse BS+) Cardiovascular: regular rate and rhythm Gastrointestinal: soft, non-tender Musculoskeletal: muscle weakness, swelling, other (Bilateral UE edema ) Neurological: other (Intubated, sedated on ventilator ) Medications Medications Current Medications IV Flush (NS 3 ml) 3 ml PER PROTOCOL IV ; Start 07/18/18 at 17:30 Ondansetron HCl (Zofran Inj) 4 mg Q6H PRN IV NAUSEA AND/OR VOMITING; Start 07/18/18 at 17:30 Acetaminophen (Tylenol Tab) 650 mg Q6H PRN PO PAIN LEVEL 1-3 OR FEVER; Start 07/18/18 at 17:30 Enoxaparin Sodium (Lovenox) 30 mg DAILY SC Last administered on 07/26/18at 08:50; Admin Dose 30 MG; Start 07/19/18 at 09:00 Atorvastatin Calcium (Lipitor) 40 mg QHS PO Last administered on 07/26/18at 20:31; Admin Dose 40 MG; Start 07/18/18 at 21:00 Baclofen (Lioresal) 10 mg BID PO Last administered on 07/26/18at 20:32; Admin Dose 10 MG; Start 07/18/18 at 21:00 Docusate Sodium (Colace) 100 mg BID PRN PO CONSTIPATION; Start 07/18/18 at 17:30 Donepezil HCl (Aricept) 5 mg DAILY PO Last administered on 07/26/18at 08:47; Admin Dose 5 MG; Start 07/19/18 at 09:00 Doxazosin Mesylate (Cardura) 4 mg HS PO Last administered on 07/26/18 20:32; Admin Dose 4 MG; Start 07/18/18 at 21:00 Finasteride (Proscar) 5 mg DAILY PO Last administered on 07/26/18 08:48; Admin Dose 5 MG; Start 07/19/18 at 09:00 Fluticasone Propionate (Flonase 0.05% Nasal) 1 spray DAILY NASAL Last administered on 07/25/18 08:12; Admin Dose 1 SPRAY; Start 07/19/18 at 09:00 Cefepime HCl 50 ml @ 100 mls/hr Q12 IVPB Last administered on 07/26/18 20:31; Admin Dose 100 MLS/HR; Start 07/18/18 at 21:00 Haloperidol (Haldol) 5 mg Q2H PRN IM AGITATION Last administered on 07/19/18 02:37; Admin Dose 5 MG; Start 07/18/18 at 23:30 Levofloxacin/ Dextrose 50 ml @ 50 mls/hr Q24H IVPB Last administered on 07/26/18 09:55; Admin Dose 50 MLS/HR; Start 07/19/18 at 10:00 Pregabalin (Lyrica) 50 mg DAILY PO Last administered on 07/26/18 08:48; Admin Dose 50 MG; Start 07/19/18 at 13:00 Propofol 100 ml @ 1.909 mls/ hr Q12H IV Last administered on 07/27/18 02:15; Admin Dose 7.637 MLS/HR; Start 07/19/18 at 14:00 Allopurinol (Zyloprim) 100 mg DAILY PO Last administered on 07/26/18 08:48; Admin Dose 100 MG; Start 07/21/18 at 09:00 Docusate Sodium (Colace Liquid Cup) 100 mg BID GTB Last administered on 07/26/18 20:31; Admin Dose 100 MG; Start 07/20/18 at 21:00 Fentanyl 100 ml @ 2.5 mls/hr TITRATE IV Last administered on 07/26/18 04:53; Admin Dose 5 MLS/HR; Start 07/21/18 at 08:00 Famotidine (Pepcid) 20 mg Q12 PO Last administered on 12/29/18at 20:32; Admin Dose 20 MG; Start 07/21/18 at 21:00 Morphine Sulfate (morphine) 6 mg Q4H PRN PO PAIN LEVEL 7-10; Start 07/21/18 at 11:00 Vancomycin HCl (Vanco Iv Per Pharmacy) VANCOMYCIN PER PHARMACY PER PROTOCOL XX ; Start 07/23/18 at 09:00 Nifedipine (Procardia) 20 mg TID NGT Last administered on 07/26/18at 20:32; Admin Dose 20 MG; Start 07/23/18 at 14:30 Lorazepam (Ativan) 1 mg Q4H PRN GTB AGITATION; Start 07/24/18 at 11:00 Insulin Aspart (Novolog Insulin Pen) NOVOLOG *MILD* ALGORI... Q4 SC Last administered on 07/27/18at 04:52; Admin Dose 1 UNIT; Start 07/26/18 at 17:00 Miscellaneous Information 1 ea NOTE XX ; Start 07/26/18 at 14:30 Glucose (Glutose) 15 gm Q15M PRN PO DECREASED GLUCOSE; Start 07/26/18 at 14:30 Glucose (Glutose) 22.5 gm Q15M PRN PO DECREASED GLUCOSE; Start 07/26/18 at 14:30 Dextrose (D50w Syringe) 25 ml Q15M PRN IV DECREASED GLUCOSE; Start 07/26/18 at 14:30 Dextrose (D50w Syringe) 50 ml Q15M PRN IV DECREASED GLUCOSE; Start 07/26/18 at 14:30 Glucagon (Glucagen) 1 mg Q15M PRN IM DECREASED GLUCOSE; Start 07/26/18 at 14:30 Glucose (Glutose) 15 gm Q15M PRN BUCCAL DECREASED GLUCOSE; Start 07/26/18 at 14:30 FELICIANO RAMIREZ MD Jul 27, 2018 09:06
[2018-07-27] MEDS ORDERED: ALBUMIN HUMAN 25% 100 ML IV STA (09:08)
[2018-07-27] MEDS ORDERED: SOD CHLORIDE 0.9% 1,000 ML IV SCH (09:30)
[2018-07-27] MEDS: FINASTERIDE 5 MG TAB PO SCH (09:31)
[2018-07-27] MEDS: FAMOTIDINE 20 MG TAB PO SCH (09:31)
[2018-07-27] MEDS: DOCUSATE SODIUM 10 MG/ML (10ML CUP) GTB SCH ×2 (09:31→21:00)
[2018-07-27] MEDS: ALLOPURINOL 100 MG TAB PO SCH (09:31)
[2018-07-27] MEDS: NIFEdipine 10 MG CAP NGT SCH ×3 (09:31→21:37)
[2018-07-27] MEDS: BACLOFEN 10 MG TAB PO SCH ×2 (09:32→21:36)
[2018-07-27] MEDS: ENOXAPARIN 30 MG/0.3 ML SYG SC SCH (09:33)
[2018-07-27] MEDS: BALSAM PERU/CASTOR OIL 60 GM TUBE TOP SCH ×2 (09:34→21:43)
[2018-07-27] MEDS: PREGABALIN 50 MG CAP PO SCH (09:42)
[2018-07-27] MEDS: CEFEPIME 2GM/50 ML (PMX) 50 ML IVPB SCH ×2 (09:42→21:37)
[2018-07-27] MEDS: DONEPEZIL 5 MG TAB PO SCH (09:42)
--- NOTE | 2018-07-27 11:24 | CONS ---
Date/Time of Note Date/Time of Note DATE: 07/27/18 TIME: 11:21 Consult Date/Type/Reason Admit Date/Time Jul 18, 2018 at 16:57 Initial Consult Date 07/19/18 Type of Consultation: Pulm/CCM Requesting Provider: HARLEY STARR Subjective No events. Urine output ~ 10 ml/Hr. FeUrea 41% c/w intrinsic renal cause. Objective Vital Signs Date Temp Pulse Resp B/P (MAP) Pulse Ox O2 O2 Flow FiO2 Time Delivery Rate 07/27/18 85 08:14 07/27/18 19 121/64 98 Mechanical 06:00 (83) Ventilator 07/27/18 40 05:35 07/27/18 97.9 04:00 Intake and Output 07/26/18 07/26/18 07/27/18 1515:00 23:00 07:00 IntakeIntake Total 878.318 ml 610.985 ml 729.567 ml OutputOutput Total 375 ml 160 ml 70 ml BalanceBalance 503.318 ml 450.985 ml 659.567 ml Exam NECK: Supple. No JVD or lymphadenopathy. + ET tube in place CARDIAC EXAM: Paced S1, S2. No added sounds or murmurs. CHEST: Coarse rhonchi B/L ABDOMEN: Soft, nontender. No guarding or rebound. EXTREMITIES: No cyanosis, clubbing or edema. NEUROLOGIC: Generalized weakness. No focal deficits. Results/Medications Result Diagram: 07/27/18 0410 07/27/18 0410 Results 24 hrs Laboratory Tests Test 07/26/18 11:34 07/26/18 13:47 07/26/18 14:00 07/26/18 16:30 Lab Scanned REFERENCE LAB Report Bedside Glucose 202 181 Urine Random 29.47 Creatinine Urine Random 394 Urea Nitrogen Test 07/26/18 20:38 07/27/18 01:12 07/27/18 04:10 07/27/18 04:49 Bedside Glucose 160 161 171 White Blood 10.1 Count Red Blood Count 2.31 L Hemoglobin 7.3 L Hematocrit 22.9 L Mean 99.1 Corpuscular Volume Mean 31.6 Corpuscular Hemoglobin Mean 31.9 L Corpuscular Hemoglobin Conc ent Red Cell 14.2 Distribution Width Platelet Count 135 L Mean Platelet 12.6 H Volume Immature 4.400 H Granulocytes % Neutrophils % 83.7 H Lymphocytes % 3.6 L Monocytes % 5.8 Eosinophils % 2.3 Basophils % 0.2 Nucleated Red 0.2 H Blood Cells % Immature 0.450 H Granulocytes # Neutrophils # 8.5 H Lymphocytes # 0.4 L Monocytes # 0.6 Eosinophils # 0.2 Basophils # 0.0 Nucleated Red 0.0 Blood Cells # Sodium Level 143 Potassium Level 4.5 Chloride Level 113 H Carbon Dioxide 22 Level Anion Gap 8 Blood Urea 111 H Nitrogen Creatinine 3.42 H Est Glomerular Filtrat Rate mL/min Glucose Level 161 Calcium Level 8.7 Random 19.1 Vancomycin Level Test 07/27/18 05:00 07/27/18 09:30 Blood Gas Blood arterial Specimen Source Arterial Blood 07/27/2018 5:40 Date Drawn :45 AM Arterial Blood 7.360 pH (Temp corrected ) Arterial Blood 37.4 pCO2 (Temp correct) Arterial Blood 89.6 pO2 (Temp corrected ) Arterial Blood 20.7 L HCO3 Arterial Blood -4.4 L Base Excess Arterial Blood 95.7 Oxygen Saturati on Margarito Test ACCEPTAB Arterial Blood Right Radial Gas Puncture Site Arterial 0.1 Blood Carboxyhe moglobin Arterial Blood 0.5 Methemoglobin Blood Gas A-a 152.6 H O2 Differential Oxyhemoglobin 95.1 Percent Blood Gas 37.0 Temperature Blood Gas 16.0 Respiration Rate Blood Gas 19 Actual Respiration Rat e Blood Gas VENT - AC Modality FiO2 40.0 Blood Gas Tidal 500.0 Volume Blood Gas Low 5.0 PEEP Setting Blood Gas [place] Notified Whom Blood Gas 07/27/2018 5:55 Notified Time :29 AM Bedside Glucose 164 Medications Current Medications IV Flush (NS 3 ml) 3 ml PER PROTOCOL IV ; Start 07/18/18 at 17:30 Ondansetron HCl (Zofran Inj) 4 mg Q6H PRN IV NAUSEA AND/OR VOMITING; Start 07/18/18 at 17:30 Acetaminophen (Tylenol Tab) 650 mg Q6H PRN PO PAIN LEVEL 1-3 OR FEVER; Start 07/18/18 at 17:30 Enoxaparin Sodium (Lovenox) 30 mg DAILY SC Last administered on 07/27/18at 09:33; Admin Dose 30 MG; Start 07/19/18 at 09:00 Atorvastatin Calcium (Lipitor) 40 mg QHS PO Last administered on 07/26/18at 20:31; Admin Dose 40 MG; Start 07/18/18 at 21:00 Baclofen (Lioresal) 10 mg BID PO Last administered on 07/27/18 09:32; Admin Dose 10 MG; Start 07/18/18 at 21:00 Docusate Sodium (Colace) 100 mg BID PRN PO CONSTIPATION; Start 07/18/18 at 17:30 Donepezil HCl (Aricept) 5 mg DAILY PO Last administered on 07/27/18 09:42; Admin Dose 5 MG; Start 07/19/18 at 09:00 Doxazosin Mesylate (Cardura) 4 mg HS PO Last administered on 07/26/18 20:32; Admin Dose 4 MG; Start 07/18/18 at 21:00 Finasteride (Proscar) 5 mg DAILY PO Last administered on 07/27/18 09:31; Admin Dose 5 MG; Start 07/19/18 at 09:00 Fluticasone Propionate (Flonase 0.05% Nasal) 1 spray DAILY NASAL Last a dministered on 07/25/18 08:12; Admin Dose 1 SPRAY; Start 07/19/18 at 09:00 Cefepime HCl 50 ml @ 100 mls/hr Q12 IVPB Last administered on 07/27/18 09:42; Admin Dose 100 MLS/HR; Start 07/18/18 at 21:00 Haloperidol (Haldol) 5 mg Q2H PRN IM AGITATION Last administered on 07/19/18 02:37; Admin Dose 5 MG; Start 07/18/18 at 23:30 Levofloxacin/ Dextrose 50 ml @ 50 mls/hr Q24H IVPB Last administered on 07/26/18 09:55; Admin Dose 50 MLS/HR; Start 07/19/18 at 10:00 Pregabalin (Lyrica) 50 mg DAILY PO Last administered on 07/27/18 09:42; Admin Dose 50 MG; Start 07/19/18 at 13:00 Propofol 100 ml @ 1.909 mls/ hr Q12H IV Last administered on 07/27/18 02:15; Admin Dose 7.637 MLS/HR; Start 07/19/18 at 14:00 Allopurinol (Zyloprim) 100 mg DAILY PO Last administered on 12/30/18at 09:31; Admin Dose 100 MG; Start 07/21/18 at 09:00 Docusate Sodium (Colace Liquid Cup) 100 mg BID GTB Last administered on 07/27/18 09:31; Admin Dose 100 MG; Start 07/20/18 at 21:00 Fentanyl 100 ml @ 2.5 mls/hr TITRATE IV Last administered on 07/26/18at 04:53; Admin Dose 5 MLS/HR; Start 07/21/18 at 08:00 Famotidine (Pepcid) 20 mg Q12 PO Last administered on 07/27/18 09:31; Admin Dose 20 MG; Start 07/21/18 at 21:00 Morphine Sulfate (morphine) 6 mg Q4H PRN PO PAIN LEVEL 7-10; Start 07/21/18 at 11:00 Nifedipine (Procardia) 20 mg TID NGT Last administered on 07/27/18 09:31; Admin Dose 20 MG; Start 07/23/18 at 14:30 Lorazepam (Ativan) 1 mg Q4H PRN GTB AGITATION; Start 07/24/18 at 11:00 Insulin Aspart (Novolog Insulin Pen) NOVOLOG *MILD* ALGORI... Q4 SC Last administered on 07/27/18 09:33; Admin Dose 1 UNIT; Start 07/26/18 at 17:00 Miscellaneous Information 1 ea NOTE XX ; Start 07/26/18 at 14:30 Glucose (Glutose) 15 gm Q15M PRN PO DECREASED GLUCOSE; Start 07/26/18 at 14:30 Glucose (Glutose) 22.5 gm Q15M PRN PO DECREASED GLUCOSE; Start 07/26/18 at 14:30 Dextrose (D50w Syringe) 25 ml Q15M PRN IV DECREASED GLUCOSE; Start 07/26/18 at 14:30 Dextrose (D50w Syringe) 50 ml Q15M PRN IV DECREASED GLUCOSE; Start 07/26/18 at 14:30 Glucagon (Glucagen) 1 mg Q15M PRN IM DECREASED GLUCOSE; Start 07/26/18 at 14:30 Glucose (Glutose) 15 gm Q15M PRN BUCCAL DECREASED GLUCOSE; Start 07/26/18 at 14:30 Sodium Chloride 1,000 ml @ 80 mls/hr [id number] IV Last administered on 1 2/30/18at 09:44; Admin Dose 80 MLS/HR; Start 07/27/18 at 09:30; Stop 07/27/18 at 21:59 Assessment/Plan Additional Assessment/Plan IMP: 1. Acute hypoxemic respiratory failure 2/2 multifocal pneumonia; cannot exclude co-existing bland hemorrhage. 2. Encephalopathy toxic metabolic 3. Anemia questionable GI bleed 4. MYKE--FeUrea c/w intrinsic renal cause 5. Dysphagia RECS: 1. D/C Vanco and lasix 2. Obtain urine Fe urea 3. IVF's 4. Obtain ECHO 5. Continue vent support--> lower Vt target to 450 ml 6. Palliative Consult cc 40 mins. CHRIS BILL MD Jul 27, 2018 11:24
[2018-07-27] MEDS: LEVOFLOXACIN 250MG/D5W (PMX) 50 ML IVPB SCH (12:10)
--- NOTE | 2018-07-27 12:40 | PN ---
Date/Time of Note Date/Time of Note DATE: 07/27/18 TIME: 12:39 Assessment/Plan VTE Prophylaxis Risk score (from Ns)>0 risk: 12 SCD applied (from Ns): Yes Pharmacological prophylaxis: LMWH Lines/Catheters IV Catheter Type (from Nrsg): PICC Line Central line still needed: Yes Urinary Cath still in place: Yes Reason Cath still needed: skin wounds contaminated by urine Assessment/Plan Hospital Course 1) pneumonia - IV antibiotics 2) respiratory failure - on ventilator support - monitor clinically 3) renal insufficiency - nephrology on the case - may need to be started on hemodialysis Result Diagram: 07/27/18 1219 07/27/18 0410 Results 24hrs Laboratory Tests Test 07/26/18 13:47 07/26/18 14:00 07/26/18 16:30 07/26/18 20:38 Bedside Glucose 202 181 160 Urine Random 29.47 Creatinine Urine Random 394 Urea Nitrogen Test 07/27/18 01:12 07/27/18 04:10 07/27/18 04:49 07/27/18 05:00 Bedside Glucose 161 171 White Blood 10.1 Count Red Blood Count 2.31 L Hemoglobin 7.3 L Hematocrit 22.9 L Mean 99.1 Corpuscular Volume Mean 31.6 Corpuscular Hemoglobin Mean 31.9 L Corpuscular Hemoglobin Conc ent Red Cell 14.2 Distribution Width Platelet Count 135 L Mean Platelet 12.6 H Volume Immature 4.400 H Granulocytes % Neutrophils % 83.7 H Lymphocytes % 3.6 L Monocytes % 5.8 Eosinophils % 2.3 Basophils % 0.2 Nucleated Red 0.2 H Blood Cells % Immature 0.450 H Granulocytes # Neutrophils # 8.5 H Lymphocytes # 0.4 L Monocytes # 0.6 Eosinophils # 0.2 Basophils # 0.0 Nucleated Red 0.0 Blood Cells # Sodium Level 143 Potassium Level 4.5 Chloride Level 113 H Carbon Dioxide 22 Level Anion Gap 8 Blood Urea 111 H Nitrogen Creatinine 3.42 H Est Glomerular Filtrat Rate mL/min Glucose Level 161 Calcium Level 8.7 Random 19.1 Vancomycin Level Blood Gas Blood arterial Specimen Source Arterial Blood 07/27/2018 5:40 Date Drawn :45 AM Arterial Blood 7.360 pH (Temp corrected ) Arterial Blood 37.4 pCO2 (Temp correct) Arterial Blood 89.6 pO2 (Temp corrected ) Arterial Blood 20.7 L HCO3 Arterial Blood -4.4 L Base Excess Arterial Blood 95.7 Oxygen Saturati on Margarito Test ACCEPTAB Arterial Blood Right Radial Gas Puncture Site Arterial 0.1 Blood Carboxyhe moglobin Arterial Blood 0.5 Methemoglobin Blood Gas A-a 152.6 H O2 Differential Oxyhemoglobin 95.1 Percent Blood Gas 37.0 Temperature Blood Gas 16.0 Respiration Rate Blood Gas 19 Actual Respiration Rat e Blood Gas VENT - AC Modality FiO2 40.0 Blood Gas Tidal 500.0 Volume Blood Gas Low 5.0 PEEP Setting Blood Gas [place] Notified Whom Blood Gas 07/27/2018 5:55 Notified Time :29 AM Test 07/27/18 09:30 07/27/18 12:19 Bedside Glucose 164 Hemoglobin 7.5 L Hematocrit 22.9 L Subjective 24 Hr Interval Summary Free Text/Dictation Patient remain sedated and intubated but now his BUN/Cr are rising and showing evidence of decreasing renal function Exam/Review of Systems Vital Signs Vitals Vital Signs Date Temp Pulse Resp B/P (MAP) Pulse Ox O2 O2 Flow FiO2 Time Delivery Rate 07/27/18 85 08:14 07/27/18 19 121/64 98 Mechanical 06:00 (83) Ventilator 07/27/18 40 05:35 07/27/18 97.9 04:00 Intake and Output 07/26/18 07/26/18 07/27/18 1515:00 23:00 07:00 IntakeIntake Total 878.318 ml 610.985 ml 729.567 ml OutputOutput Total 375 ml 160 ml 70 ml BalanceBalance 503.318 ml 450.985 ml 659.567 ml Exam Constitutional: well developed Head: normocephalic, atraumatic Neck: supple Respiratory: diminished breath sounds Cardiovascular: regular rate and rhythm Gastrointestinal: soft, non-tender Extremities: normal pulses Medications Medications Current Medications IV Flush (NS 3 ml) 3 ml PER PROTOCOL IV ; Start 07/18/18 at 17:30 Ondansetron HCl (Zofran Inj) 4 mg Q6H PRN IV NAUSEA AND/OR VOMITING; Start 07/18/18 at 17:30 Acetaminophen (Tylenol Tab) 650 mg Q6H PRN PO PAIN LEVEL 1-3 OR FEVER; Start 07/18/18 at 17:30 Enoxaparin Sodium (Lovenox) 30 mg DAILY SC Last administered on 07/27/18 09:33; Admin Dose 30 MG; Start 07/19/18 at 09:00 Atorvastatin Calcium (Lipitor) 40 mg QHS PO Last administered on 07/26/18 20:31; Admin Dose 40 MG; Start 07/18/18 at 21:00 Baclofen (Lioresal) 10 mg BID PO Last administered on 07/27/18 09:32; Admin Dose 10 MG; Start 07/18/18 at 21:00 Docusate Sodium (Colace) 100 mg BID PRN PO CONSTIPATION; Start 07/18/18 at 17:30 Donepezil HCl (Aricept) 5 mg DAILY PO Last administered on 07/27/18 09:42; Admin Dose 5 MG; Start 07/19/18 at 09:00 Doxazosin Mesylate (Cardura) 4 mg HS PO Last administered on 07/26/18 20:32; Admin Dose 4 MG; Start 07/18/18 at 21:00 Finasteride (Proscar) 5 mg DAILY PO Last administered on 07/27/18 09:31; Admin Dose 5 MG; Start 07/19/18 at 09:00 Fluticasone Propionate (Flonase 0.05% Nasal) 1 spray DAILY NASAL Last administered on 07/25/18 08:12; Admin Dose 1 SPRAY; Start 07/19/18 at 09:00 Cefepime HCl 50 ml @ 100 mls/hr Q12 IVPB Last administered on 07/27/18 09:42; Admin Dose 100 MLS/HR; Start 07/18/18 at 21:00 Haloperidol (Haldol) 5 mg Q2H PRN IM AGITATION Last administered on 07/19/18 02:37; Admin Dose 5 MG; Start 07/18/18 at 23:30 Levofloxacin/ Dextrose 50 ml @ 50 mls/hr Q24H IVPB Last administered on 07/27/18 12:10; Admin Dose 50 MLS/HR; Start 07/19/18 at 10:00 Pregabalin (Lyrica) 50 mg DAILY PO Last administered on 07/27/18 09:42; Admin Dose 50 MG; Start 07/19/18 at 13:00 Propofol 100 ml @ 1.909 mls/ hr Q12H IV Last administered on 12/30/18at 02:15; Admin Dose 7.637 MLS/HR; Start 07/19/18 at 14:00 Allopurinol (Zyloprim) 100 mg DAILY PO Last administered on 07/27/18 09:31; Admin Dose 100 MG; Start 07/21/18 at 09:00 Docusate Sodium (Colace Liquid Cup) 100 mg BID GTB Last administered on 07/27/18 09:31; Admin Dose 100 MG; Start 07/20/18 at 21:00 Fentanyl 100 ml @ 2.5 mls/hr TITRATE IV Last administered on 07/26/18at 04:53; Admin Dose 5 MLS/HR; Start 07/21/18 at 08:00 Famotidine (Pepcid) 20 mg Q12 PO Last administered on 07/27/18 09:31; Admin Dose 20 MG; Start 07/21/18 at 21:00 Morphine Sulfate (morphine) 6 mg Q4H PRN PO PAIN LEVEL 7-10; Start 07/21/18 at 11:00 Nifedipine (Procardia) 20 mg TID NGT Last administered on 07/27/18 09:31; Admin Dose 20 MG; Start 07/23/18 at 14:30 Lorazepam (Ativan) 1 mg Q4H PRN GTB AGITATION; Start 07/24/18 at 11:00 Insulin Aspart (Novolog Insulin Pen) NOVOLOG *MILD* ALGORI... Q4 SC Last a dministered on 07/27/18 09:33; Admin Dose 1 UNIT; Start 07/26/18 at 17:00 Miscellaneous Information 1 ea NOTE XX ; Start 07/26/18 at 14:30 Glucose (Glutose) 15 gm Q15M PRN PO DECREASED GLUCOSE; Start 07/26/18 at 14:30 Glucose (Glutose) 22.5 gm Q15M PRN PO DECREASED GLUCOSE; Start 07/26/18 at 14:30 Dextrose (D50w Syringe) 25 ml Q15M PRN IV DECREASED GLUCOSE; Start 07/26/18 at 14:30 Dextrose (D50w Syringe) 50 ml Q15M PRN IV DECREASED GLUCOSE; Start 07/26/18 at 14:30 Glucagon (Glucagen) 1 mg Q15M PRN IM DECREASED GLUCOSE; Start 07/26/18 at 14:30 Glucose (Glutose) 15 gm Q15M PRN BUCCAL DECREASED GLUCOSE; Start 07/26/18 at 14:30 Sodium Chloride 1,000 ml @ 80 mls/hr [id number] IV Last administered on 07/27/18at 09:44; Admin Dose 80 MLS/HR; Start 07/27/18 at 09:30; Stop 07/27/18 at 21:59 Bumetanide 12 mg/ Dextrose/Water 120 ml @ 10 mls/hr Q12H ONCE IV ; Start 07/27/18 at 13:00; Stop 07/28/18 at 00:59; Status UNV HARLEY STARR Jul 27, 2018 12:40
[2018-07-27] MEDS ORDERED: BUMETANIDE 12 MG in DEXTROSE 5% 72 ML IV ONE (14:00)
[2018-07-27] MEDS: ATORVASTATIN 40 MG TAB PO SCH (21:36)
[2018-07-27] MEDS: DOXAZOSIN 4 MG TAB PO SCH (21:36)
[2018-07-28] VITALS (53 sets, daily range): BP systolic 108–141; BP diastolic 50–68; PULSE 60–150; RESP 12–21
[2018-07-28] MEDS: INSULIN ASPART [NOVOLOG] 3 ML PEN SC SCH ×6 (01:00→20:26)
[2018-07-28] MEDS: PROPOFOL 100 ML IV SCH ×2 (04:21→13:53)
[2018-07-28] MEDS ORDERED: MANNITOL 25% 50 ML IV PRN (07:30)
[2018-07-28] MEDS ORDERED: HEPARIN 1000 UNITS/ML 10 ML INJ CATHETER SCH (07:30)
[2018-07-28] MEDS ORDERED: SODIUM CHLORIDE 0.9% 1L BAG IV PRN (07:30)
[2018-07-28] MEDS ORDERED: ALBUMIN HUMAN 25% 50 ML IV PRN (07:30)
[2018-07-28] MEDS ORDERED: EVAC CONTAINER IV PRN (08:30)
[2018-07-28] MEDS ORDERED: MANNITOL 20% IV PRN (08:30)
[2018-07-28] MEDS: DOCUSATE SODIUM 10 MG/ML (10ML CUP) GTB SCH ×2 (08:52→20:25)
[2018-07-28] MEDS: BALSAM PERU/CASTOR OIL 60 GM TUBE TOP SCH ×2 (08:52→20:26)
[2018-07-28] MEDS: PREGABALIN 50 MG CAP PO SCH (08:53)
[2018-07-28] MEDS: BACLOFEN 10 MG TAB PO SCH ×2 (08:53→20:26)
[2018-07-28] MEDS: FINASTERIDE 5 MG TAB PO SCH (08:53)
[2018-07-28] MEDS: ALLOPURINOL 100 MG TAB PO SCH (08:53)
[2018-07-28] MEDS: ENOXAPARIN 30 MG/0.3 ML SYG SC SCH (08:53)
[2018-07-28] MEDS: DONEPEZIL 5 MG TAB PO SCH (08:53)
[2018-07-28] MEDS: FAMOTIDINE 20 MG INJ IV SCH (08:53)
[2018-07-28] MEDS: NIFEdipine 10 MG CAP NGT SCH ×3 (08:54→20:26)
[2018-07-28] MEDS: FLUTICASONE 0.05% 16 GM NAS SPRAY NASAL SCH (08:54)
--- NOTE | 2018-07-28 09:57 | CONS ---
Date/Time of Note Date/Time of Note DATE: 07/28/18 TIME: 09:55 Consult Date/Type/Reason Admit Date/Time Jul 18, 2018 at 16:57 Initial Consult Date 07/19/18 Type of Consultation: Pulm/CCM Requesting Provider: HARLEY STARR Patient remains intubated on mechanical ventilation. Pending hemodialysis today. Objective Vital Signs Date Temp Pulse Resp B/P (MAP) Pulse Ox O2 O2 Flow FiO2 Time Delivery Rate 07/28/18 60 16 130/64 100 06:30 (86) 07/28/18 Mechanical 06:00 Ventilator 07/28/18 40 05:48 07/28/18 98.1 04:00 Intake and Output 07/27/18 07/27/18 07/28/18 1515:00 23:00 07:00 IntakeIntake Total 1525.093 ml 951.419 ml 569.096 ml OutputOutput Total 105 ml 143 ml 80 ml BalanceBalance 1420.093 ml 808.419 ml 489.096 ml Exam GENERAL: Elderly gentleman orally intubated on mechanical ventilation VITAL SIGNS: per chart NECK: Supple. No JVD or lymphadenopathy. CARDIAC EXAM: S1, S2. No added sounds or murmurs. CHEST: Diminished air entry bilaterally ABDOMEN: Soft, nontender. No guarding or rebound. EXTREMITIES: No cyanosis, clubbing edema +1 NEUROLOGIC: Generalized weakness. Results/Medications Result Diagram: 07/28/18 0432 07/28/18 0432 Results 24 hrs Laboratory Tests Test 07/27/18 12:19 07/27/18 13:48 07/27/18 17:15 07/27/18 21:42 Hemoglobin 7.5 L Hematocrit 22.9 L Bedside Glucose 177 153 121 Test 07/28/18 01:13 07/28/18 04:24 07/28/18 04:32 07/28/18 05:00 Bedside Glucose 133 135 White Blood 11.1 H Count Red Blood Count 2.25 L Hemoglobin 7.2 L Hematocrit 22.1 L Mean 98.2 Corpuscular Volume Mean 32.0 Corpuscular Hemoglobin Mean 32.6 Corpuscular Hemoglobin Conc ent Red Cell 14.5 Distribution Width Platelet Count 127 L Mean Platelet 12.7 H Volume Immature 3.700 H Granulocytes % Neutrophils % 86.1 H Lymphocytes % 3.3 L Monocytes % 4.7 Eosinophils % 2.1 Basophils % 0.1 Nucleated Red 0.0 Blood Cells % Immature 0.410 H Granulocytes # Neutrophils # 9.5 H Lymphocytes # 0.4 L Monocytes # 0.5 Eosinophils # 0.2 Basophils # 0.0 Nucleated Red 0.0 Blood Cells # Sodium Level 138 Potassium Level 5.0 Chloride Level 108 Carbon Dioxide 20 L Level Anion Gap 10 Blood Urea 131 H Nitrogen Creatinine 4.22 H Est Glomerular Filtrat Rate mL/min Glucose Level 129 Uric Acid 6.3 Calcium Level 8.8 B-Type 40603 H Natriuretic Peptide Blood Gas Blood arterial Specimen Source Arterial Blood 07/28/2018 4:50 Date Drawn :36 AM Arterial Blood 7.270 *L pH (Temp corrected ) Arterial Blood 42.0 pCO2 (Temp correct) Arterial Blood 80.0 pO2 (Temp corrected ) Arterial Blood 18.9 L HCO3 Arterial Blood -7.5 L Base Excess Arterial Blood 94.1 L Oxygen Saturati on Margarito Test ACCEPTAB Arterial Blood Right Radial Gas Puncture Site Arterial 0.7 Blood Carboxyhe moglobin Arterial Blood 0.4 Methemoglobin Blood Gas A-a 156.9 H O2 Differential Oxyhemoglobin 93.1 Percent Blood Gas 37.0 Temperature Blood Gas 16.0 Respiration Rate Blood Gas 17 Actual Respiration Rat e Blood Gas VENT - AC Modality FiO2 40.0 Blood Gas Tidal 450.0 Volume Blood Gas Low 5.0 PEEP Setting Blood Gas J. PACOL RN Critical Value Read Back Blood Gas Notified Whom Blood Gas 07/28/2018 5:00 Notified Time :50 AM Test 07/28/18 07:56 07/28/18 08:49 Prothrombin 16.0 H Time Prothrombin 1.3 Time Ratio INR 1.27 International Normalized Rati o Activated 39.0 H Partial Thrombo plast Time Hepatitis B Pending Surface Antigen Hepatitis B Pending Core Total Antibody Hepatitis C Pending Antibody HIV (1&2) Pending Antibody Bedside Glucose 155 Medications Current Medications IV Flush (NS 3 ml) 3 ml PER PROTOCOL IV ; Start 07/18/18 at 17:30 Ondansetron HCl (Zofran Inj) 4 mg Q6H PRN IV NAUSEA AND/OR VOMITING; Start 07/18/18 at 17:30 Acetaminophen (Tylenol Tab) 650 mg Q6H PRN PO PAIN LEVEL 1-3 OR FEVER; Start 07/18/18 at 17:30 Enoxaparin Sodium (Lovenox) 30 mg DAILY SC Last administered on 07/28/18 08:53; Admin Dose 30 MG; Start 07/19/18 at 09:00 Atorvastatin Calcium (Lipitor) 40 mg QHS PO Last administered on 07/27/18 21:36; Admin Dose 40 MG; Start 07/18/18 at 21:00 Baclofen (Lioresal) 10 mg BID PO Last administered on 07/28/18 08:53; Admin Dose 10 MG; Start 07/18/18 at 21:00 Docusate Sodium (Colace) 100 mg BID PRN PO CONSTIPATION; Start 07/18/18 at 17:30 Donepezil HCl (Aricept) 5 mg DAILY PO Last administered on 07/28/18 08:53; Admin Dose 5 MG; Start 07/19/18 at 09:00 Doxazosin Mesylate (Cardura) 4 mg HS PO Last administered on 07/27/18 21:36; Admin Dose 4 MG; Start 07/18/18 at 21:00 Finasteride (Proscar) 5 mg DAILY PO Last administered on 07/28/18 08:53; Admin Dose 5 MG; Start 07/19/18 at 09:00 Fluticasone Propionate (Flonase 0.05% Nasal) 1 spray DAILY NASAL Last administered on 07/25/18 08:12; Admin Dose 1 SPRAY; Start 07/19/18 at 09:00 Cefepime HCl 50 ml @ 100 mls/hr Q12 IVPB Last administered on 07/27/18 21:37; Admin Dose 100 MLS/HR; Start 07/18/18 at 21:00 Haloperidol (Haldol) 5 mg Q2H PRN IM AGITATION Last administered on 07/19/18 02:37; Admin Dose 5 MG; Start 07/18/18 at 23:30 Levofloxacin/ Dextrose 50 ml @ 50 mls/hr Q24H IVPB Last administered on 07/27/18 12:10; Admin Dose 50 MLS/HR; Start 07/19/18 at 10:00 Pregabalin (Lyrica) 50 mg DAILY PO Last administered on 07/28/18 08:53; Admin Dose 50 MG; Start 07/19/18 at 13:00 Propofol 100 ml @ 1.909 mls/ hr Q12H IV Last administered on 07/28/18at 04:21; Admin Dose 7.637 MLS/HR; Start 07/19/18 at 14:00 Allopurinol (Zyloprim) 100 mg DAILY PO Last administered on 07/28/18at 08:53; Admin Dose 100 MG; Start 07/21/18 at 09:00 Docusate Sodium (Colace Liquid Cup) 100 mg BID GTB Last administered on 07/28/18at 08:52; Admin Dose 100 MG; Start 07/20/18 at 21:00 Fentanyl 100 ml @ 2.5 mls/hr TITRATE IV Last administered on 07/26/18at 04:53; Admin Dose 5 MLS/HR; Start 07/21/18 at 08:00 Morphine Sulfate (morphine) 6 mg Q4H PRN PO PAIN LEVEL 7-10; Start 07/21/18 at 11:00 Nifedipine (Procardia) 20 mg TID NGT Last administered on 07/28/18at 08:54; Admin Dose 20 MG; Start 07/23/18 at 14:30 Lorazepam (Ativan) 1 mg Q4H PRN GTB AGITATION; Start 07/24/18 at 11:00 Insulin Aspart (Novolog Insulin Pen) NOVOLOG *MILD* ALGORI... Q4 SC Last administered on 07/28/18at 08:51; Admin Dose 1 UNIT; Start 07/26/18 at 17:00 Miscellaneous Information 1 ea NOTE XX ; Start 07/26/18 at 14:30 Glucose (Glutose) 15 gm Q15M PRN PO DECREASED GLUCOSE; Start 07/26/18 at 14:30 Glucose (Glutose) 22.5 gm Q15M PRN PO DECREASED GLUCOSE; Start 07/26/18 at 14:30 Dextrose (D50w Syringe) 25 ml Q15M PRN IV DECREASED GLUCOSE; Start 07/26/18 at 14:30 Dextrose (D50w Syringe) 50 ml Q15M PRN IV DECREASED GLUCOSE; Start 07/26/18 at 14:30 Glucagon (Glucagen) 1 mg Q15M PRN IM DECREASED GLUCOSE; Start 07/26/18 at 14:30 Glucose (Glutose) 15 gm Q15M PRN BUCCAL DECREASED GLUCOSE; Start 12/29/18 at 14:30 Famotidine (Pepcid Iv) 20 mg DAILY IV Last administered on 07/28/18at 08:53; Admin Dose 20 MG; Start 07/28/18 at 09:00 Heparin Sodium (Porcine) (Heparin (1000 Units/ml)) 4,000 unit AFTER DIALYSIS CATHETER ; Start 07/28/18 at 07:30; Stop 07/28/18 at 23:00 Albumin Human 50 ml @ 100 mls/hr WITH DIALYSIS PRN IV SBP less than 90 mm Hg ; Start 07/28/18 at 07:30; Stop 07/28/18 at 23:00 Sodium Chloride (NS) -To prime the dialy... DIRECTED FOR HD PRN IV SBP less than 90 mm Hg ; Start 07/28/18 at 07:30; Stop 07/28/18 at 23:00 Mannitol 63 ml/N/A 63 ml @ 240 mls/hr WITH DIALYSIS PRN IV WITH HD.; Start 07/28/18 at 08:30; Stop 07/28/18 at 18:00 Assessment/Plan Chief Complaint/Hosp Course Assessment 1. Acute hypoxemic respiratory failure possible aspiration versus healthcare associated pneumonia 2. Encephalopathy toxic metabolic 3. Anemia questionable GI bleed 4. Progressive renal failure now pending hemodialysis 5. Dysphagia Plan 1. Continue mechanical ventilation, CPAP weaning trial once volume removed with hemodialysis 2. Emergent hemodialysis 3. Decrease sedation as tolerated 4. Tube feeding as tolerated 5. Consider transfusion 1 unit packed red blood cells cc 40 mins. SPENSER RICO MD, [facility] Jul 28, 2018 09:57
[2018-07-28] MEDS: CEFEPIME 2GM/50 ML (PMX) 50 ML IVPB SCH (10:00)
[2018-07-28] MEDS: LEVOFLOXACIN 250MG/D5W (PMX) 50 ML IVPB SCH ×2 (11:00→15:35)
--- NOTE | 2018-07-28 13:15 | PN ---
Date/Time of Note Date/Time of Note DATE: 07/28/18 TIME: 13:14 Assessment/Plan VTE Prophylaxis Risk score (from Ns)>0 risk: 12 SCD applied (from Ns): Yes Pharmacological prophylaxis: LMWH Lines/Catheters IV Catheter Type (from Nrsg): PICC Line Central line still needed: Yes Urinary Cath still in place: Yes Reason Cath still needed: skin wounds contaminated by urine Assessment/Plan Hospital Course 1) pneumonia - IV antibiotics 2) respiratory failure - on ventilator support - monitor clinically 3) renal insufficiency - nephrology on the case - may need to be started on hemodialysis Result Diagram: 07/28/18 0432 07/28/18 0432 Results 24hrs Laboratory Tests Test 07/27/18 13:48 07/27/18 17:15 07/27/18 21:42 07/28/18 01:13 Bedside Glucose 177 153 121 133 Test 07/28/18 04:24 07/28/18 04:32 07/28/18 05:00 07/28/18 07:56 Bedside Glucose 135 White Blood 11.1 H Count Red Blood Count 2.25 L Hemoglobin 7.2 L Hematocrit 22.1 L Mean 98.2 Corpuscular Volume Mean 32.0 Corpuscular Hemoglobin Mean 32.6 Corpuscular Hemoglobin Conc ent Red Cell 14.5 Distribution Width Platelet Count 127 L Mean Platelet 12.7 H Volume Immature 3.700 H Granulocytes % Neutrophils % 86.1 H Lymphocytes % 3.3 L Monocytes % 4.7 Eosinophils % 2.1 Basophils % 0.1 Nucleated Red 0.0 Blood Cells % Immature 0.410 H Granulocytes # Neutrophils # 9.5 H Lymphocytes # 0.4 L Monocytes # 0.5 Eosinophils # 0.2 Basophils # 0.0 Nucleated Red 0.0 Blood Cells # Sodium Level 138 Potassium Level 5.0 Chloride Level 108 Carbon Dioxide 20 L Level Anion Gap 10 Blood Urea 131 H Nitrogen Creatinine 4.22 H Est Glomerular Filtrat Rate mL/min Glucose Level 129 Uric Acid 6.3 Calcium Level 8.8 B-Type 28350 H Natriuretic Peptide Blood Gas Blood arterial Specimen Source Arterial Blood 07/28/2018 4:50 Date Drawn :36 AM Arterial Blood 7.270 *L pH (Temp corrected ) Arterial Blood 42.0 pCO2 (Temp correct) Arterial Blood 80.0 pO2 (Temp corrected ) Arterial Blood 18.9 L HCO3 Arterial Blood -7.5 L Base Excess Arterial Blood 94.1 L Oxygen Saturati on Margarito Test ACCEPTAB Arterial Blood Right Radial Gas Puncture Site Arterial 0.7 Blood Carboxyhe moglobin Arterial Blood 0.4 Methemoglobin Blood Gas A-a 156.9 H O2 Differential Oxyhemoglobin 93.1 Percent Blood Gas 37.0 Temperature Blood Gas 16.0 Respiration Rate Blood Gas 17 Actual Respiration Rat e Blood Gas VENT - AC Modality FiO2 40.0 Blood Gas Tidal 450.0 Volume Blood Gas Low 5.0 PEEP Setting Blood Gas JZohaib PACOL RN Critical Value Read Back Blood Gas Notified Whom Blood Gas 07/28/2018 5:00 Notified Time :50 AM Prothrombin 16.0 H Time Prothrombin 1.3 Time Ratio INR 1.27 International Normalized Rati o Activated 39.0 H Partial Thrombo plast Time Hepatitis B NEGATIVE Surface Antigen Hepatitis B REACTIVE H Core Total Antibody Hepatitis C NEGATIVE Antibody HIV (1&2) NEGATIVE Antibody Test 07/28/18 08:49 Bedside Glucose 155 Subjective 24 Hr Interval Summary Free Text/Dictation Patient remain intubated and sedated, now on hemodialysis Exam/Review of Systems Vital Signs Vitals Vital Signs Date Temp Pulse Resp B/P (MAP) Pulse Ox O2 O2 Flow FiO2 Time Delivery Rate 07/28/18 65 08:00 07/28/18 16 130/64 100 06:30 (86) 07/28/18 Mechanical 06:00 Ventilator 07/28/18 40 05:48 07/28/18 98.1 04:00 Intake and Output 07/27/18 07/27/18 07/28/18 1414:59 22:59 06:59 IntakeIntake Total 1458.184 ml 1033.919 ml 614.096 ml OutputOutput Total 100 ml 143 ml 95 ml BalanceBalance 1358.184 ml 890.919 ml 519.096 ml Exam Constitutional: well developed Head: normocephalic, atraumatic Neck: supple Respiratory: diminished breath sounds Cardiovascular: regular rate and rhythm Gastrointestinal: soft, non-tender Extremities: normal pulses Medications Medications Current Medications IV Flush (NS 3 ml) 3 ml PER PROTOCOL IV ; Start 07/18/18 at 17:30 Ondansetron HCl (Zofran Inj) 4 mg Q6H PRN IV NAUSEA AND/OR VOMITING; Start 07/18/18 at 17:30 Acetaminophen (Tylenol Tab) 650 mg Q6H PRN PO PAIN LEVEL 1-3 OR FEVER; Start 07/18/18 at 17:30 Enoxaparin Sodium (Lovenox) 30 mg DAILY SC Last administered on 07/28/18 08:53; Admin Dose 30 MG; Start 07/19/18 at 09:00 Atorvastatin Calcium (Lipitor) 40 mg QHS PO Last administered on 07/27/18 21 :36; Admin Dose 40 MG; Start 07/18/18 at 21:00 Baclofen (Lioresal) 10 mg BID PO Last administered on 07/28/18 08:53; Admin Dose 10 MG; Start 07/18/18 at 21:00 Docusate Sodium (Colace) 100 mg BID PRN PO CONSTIPATION; Start 07/18/18 at 17:30 Donepezil HCl (Aricept) 5 mg DAILY PO Last administered on 07/28/18 08:53; Admin Dose 5 MG; Start 07/19/18 at 09:00 Doxazosin Mesylate (Cardura) 4 mg HS PO Last administered on 07/27/18 21:36; Admin Dose 4 MG; Start 07/18/18 at 21:00 Finasteride (Proscar) 5 mg DAILY PO Last administered on 07/28/18 08:53; Admin Dose 5 MG; Start 07/19/18 at 09:00 Fluticasone Propionate (Flonase 0.05% Nasal) 1 spray DAILY NASAL Last administered on 07/25/18 08:12; Admin Dose 1 SPRAY; Start 07/19/18 at 09:00 Cefepime HCl 50 ml @ 100 mls/hr Q12 IVPB Last administered on 07/27/18 21:37; Admin Dose 100 MLS/HR; Start 07/18/18 at 21:00 Haloperidol (Haldol) 5 mg Q2H PRN IM AGITATION Last administered on 07/19/18 02:37; Admin Dose 5 MG; Start 07/18/18 at 23:30 Levofloxacin/ Dextrose 50 ml @ 50 mls/hr Q24H IVPB Last administered on 07/27/18 12:10; Admin Dose 50 MLS/HR; Start 07/19/18 at 10:00 Pregabalin (Lyrica) 50 mg DAILY PO Last administered on 07/28/18 08:53; Admin Dose 50 MG; Start 07/19/18 at 13:00 Propofol 100 ml @ 1.909 mls/ hr Q12H IV Last administered on 07/28/18at 04:21; Admin Dose 7.637 MLS/HR; Start 07/19/18 at 14:00 Allopurinol (Zyloprim) 100 mg DAILY PO Last administered on 07/28/18at 08:53; Admin Dose 100 MG; Start 07/21/18 at 09:00 Docusate Sodium (Colace Liquid Cup) 100 mg BID GTB Last administered on 1 08:52; Admin Dose 100 MG; Start 07/20/18 at 21:00 Fentanyl 100 ml @ 2.5 mls/hr TITRATE IV Last administered on 07/26/18 04:53; Admin Dose 5 MLS/HR; Start 07/21/18 at 08:00 Morphine Sulfate (morphine) 6 mg Q4H PRN PO PAIN LEVEL 7-10; Start 07/21/18 at 11:00 Nifedipine (Procardia) 20 mg TID NGT Last administered on 07/28/18at 08:54; Admin Dose 20 MG; Start 07/23/18 at 14:30 Lorazepam (Ativan) 1 mg Q4H PRN GTB AGITATION; Start 07/24/18 at 11:00 Insulin Aspart (Novolog Insulin Pen) NOVOLOG *MILD* ALGORI... Q4 SC Last administered on 07/28/18at 08:51; Admin Dose 1 UNIT; Start 07/26/18 at 17:00 Miscellaneous Information 1 ea NOTE XX ; Start 07/26/18 at 14:30 Glucose (Glutose) 15 gm Q15M PRN PO DECREASED GLUCOSE; Start 07/26/18 at 14:30 Glucose (Glutose) 22.5 gm Q15M PRN PO DECREASED GLUCOSE; Start 07/26/18 at 14:30 Dextrose (D50w Syringe) 25 ml Q15M PRN IV DECREASED GLUCOSE; Start 07/26/18 at 14:30 Dextrose (D50w Syringe) 50 ml Q15M PRN IV DECREASED GLUCOSE; Start 07/26/18 at 14:30 Glucagon (Glucagen) 1 mg Q15M PRN IM DECREASED GLUCOSE; Start 07/26/18 at 14:30 Glucose (Glutose) 15 gm Q15M PRN BUCCAL DECREASED GLUCOSE; Start 07/26/18 at 14:30 Famotidine (Pepcid Iv) 20 mg DAILY IV Last administered on 07/28/18at 08:53; Admin Dose 20 MG; Start 07/28/18 at 09:00 Heparin Sodium (Porcine) (Heparin (1000 Units/ml)) 4,000 unit AFTER DIALYSIS CATHETER ; Start 07/28/18 at 07:30; Stop 07/28/18 at 23:00 Albumin Human 50 ml @ 100 mls/hr WITH DIALYSIS PRN IV SBP less than 90 mm Hg ; Start 07/28/18 at 07:30; Stop 07/28/18 at 23:00 Sodium Chloride (NS) -To prime the dialy... DIRECTED FOR HD PRN IV SBP less than 90 mm Hg ; Start 07/28/18 at 07:30; Stop 07/28/18 at 23:00 Mannitol 63 ml/N/A 63 ml @ 240 mls/hr WITH DIALYSIS PRN IV WITH HD.; Start 07/28/18 at 08:30; Stop 07/28/18 at 18:00 HARLEY STARR Jul 28, 2018 13:15
--- NOTE | 2018-07-28 13:50 | RADRPT ---
Echocardiogram Report Patient Name: BANDAR MURRAY Gender: Male Date: 1935 Study Date: 26-Jul-2018 Secured Entrance Monitor: Abby Michelle RDCS Location: [facility]-A Ref. Physician: CHRIS BILL Quality: Technically Difficult Study Procedures: Transthoracic echocardiogram with complete 2D, M-Mode, and doppler examination. Indications: Evaluate Left Ventricular function. 2D/M Mode Doppler Measurement Value Normal Ranges Measurement Value Normal Ranges LVIDd 2D 5.3 3.5 - 5.6 cm AV Peak Manoj 1.9 m/sec LVIDs 2D 3.6 2.1 - 4.1 cm AV Peak PG 15.0 mmHg FS 2D 32.0 % LVOT Peak Manoj 1.3 m/sec LVPWd 2D 1.2 0.6 - 1.1 cm LVOT Peak PG 7.0 mmHg IVSd 2D 1.0 0.6 - 1.1 cm MV E Peak Manoj 1.0 m/sec IVS/LVPW 2D 0.8 MV A Peak Manoj 1.1 m/sec AoR Diam 2D 2.0 2.0 - 3.7 cm MV E/A 0.9 LA/Ao 2D 2 0 - 1 MV Decel Time 173 msec EDV 2D 153.0 cm3 MV E/A 0.9 ESV 2D 48.2 cm3 TR Peak Manoj 2.6 m/sec LA Dimen 2D 4.3 2.3 - 4.0 cm TR Peak PG 27.0 mmHg Findings Left Ventricle: Mild concentric left ventricular hypertrophy. Mild left ventricular systolic dysfunction. Ejection fraction is visually estimated at 40 %. These segments of the LV are hypokinetic anterolateral mid segment, mid anterior segment, apical anterior segment, basal anterior segment, apical lateral segment, anteroseptum mid segment, apex and apical septum. Right Ventricle: Mild right ventricular hypokinesis. Left Atrium: Upper limit of normal left atrial size. Right Atrium: The right atrium is normal in size. Mitral Valve: Normal appearance of the mitral valve. Moderate mitral valve regurgitation. Aortic Valve: Normal appearance of the aortic valve. Tricuspid Valve: Normal appearance of the tricuspid valve. There is trace tricuspid regurgitation. Pulmonic Valve: Normal pulmonic valve appearance. There is mild pulmonic regurgitation. Pericardium: Normal pericardium with no significant pericardial effusion. Aorta: Normal aortic root. IVC: Normal IVC with respiratory collapse, however patient on ventilator. Conclusions Mild concentric left ventricular hypertrophy. Mild left ventricular systolic dysfunction. Ejection fraction is visually estimated at 40 %. These segments of the LV are hypokinetic anterolateral mid segment, mid anterior segment, apical anterior segment, basal anterior segment, apical lateral segment, anteroseptum mid segment, apex. and apical septum. Normal appearance of the mitral valve. Moderate mitral valve regurgitation. Normal appearance of the aortic valve. Normal appearance of the tricuspid valve. There is trace tricuspid regurgitation. Electronically Signed By: Chadwick Cruz 28-Jul-2018 13:49:20 -0800 Patient Name: BANDAR MURRAY Study Date: 26-Jul-2018 [id number]
--- NOTE | 2018-07-28 13:59 | CONS ---
Date/Time of Note Date/Time of Note DATE: 07/28/18 TIME: 13:59 Assessment/Plan Assessment/Plan Assessment/Plan 1. Acute renal failure due to ATN from sepsis + prerenal azotemia 2. Sepsis due to PNA 3. Acute Hypoxemic respiratory failure due to PNA - Intubated on ventilator 4. H/o CAD s/p previous stent placement 5. h/o Pacemaker placement 6. H/o HTN 7. H/o HL 8. H/o Chronic back pain, Prostate CA 9. Hypernatremia - now resolved 10. Hyperuricemia, on allopurinol Plan: BUN/Cr continues to rise pt remains fluid overloaded, did not respond to bumex gtt, BP stable, intubated on ventilator I talked to pt daughter and explained her need of HD initiation, she agreed for HD initiation and HD catheter placement, Consents signed, will plan for HD for 2 hr today and then 3 hr tomorrow HIV, Hepatitis panel has been done Pulmonary to manage ventilator- pt remains intubated on ventilator will follow up Result Diagram: 07/28/18 0432 07/28/18 0432 Results 24hrs Laboratory Tests Test 07/27/18 17:15 07/27/18 21:42 07/28/18 01:13 07/28/18 04:24 Bedside Glucose 153 121 133 135 Test 07/28/18 04:32 07/28/18 05:00 07/28/18 07:56 07/28/18 08:49 White Blood 11.1 H Count Red Blood Count 2.25 L Hemoglobin 7.2 L Hematocrit 22.1 L Mean 98.2 Corpuscular Volume Mean 32.0 Corpuscular Hemoglobin Mean 32.6 Corpuscular Hemoglobin Conc ent Red Cell 14.5 Distribution Width Platelet Count 127 L Mean Platelet 12.7 H Volume Immature 3.700 H Granulocytes % Neutrophils % 86.1 H Lymphocytes % 3.3 L Monocytes % 4.7 Eosinophils % 2.1 Basophils % 0.1 Nucleated Red 0.0 Blood Cells % Immature 0.410 H Granulocytes # Neutrophils # 9.5 H Lymphocytes # 0.4 L Monocytes # 0.5 Eosinophils # 0.2 Basophils # 0.0 Nucleated Red 0.0 Blood Cells # Sodium Level 138 Potassium Level 5.0 Chloride Level 108 Carbon Dioxide 20 L Level Anion Gap 10 Blood Urea 131 H Nitrogen Creatinine 4.22 H Est Glomerular Filtrat Rate mL/min Glucose Level 129 Uric Acid 6.3 Calcium Level 8.8 B-Type 32690 H Natriuretic Peptide Blood Gas Blood arterial Specimen Source Arterial Blood 07/28/2018 4:50 Date Drawn :36 AM Arterial Blood 7.270 *L pH (Temp corrected ) Arterial Blood 42.0 pCO2 (Temp correct) Arterial Blood 80.0 pO2 (Temp corrected ) Arterial Blood 18.9 L HCO3 Arterial Blood -7.5 L Base Excess Arterial Blood 94.1 L Oxygen Saturati on Margarito Test ACCEPTAB Arterial Blood Right Radial Gas Puncture Site Arterial 0.7 Blood Carboxyhe moglobin Arterial Blood 0.4 Methemoglobin Blood Gas A-a 156.9 H O2 Differential Oxyhemoglobin 93.1 Percent Blood Gas 37.0 Temperature Blood Gas 16.0 Respiration Rate Blood Gas 17 Actual Respiration Rat e Blood Gas VENT - AC Modality FiO2 40.0 Blood Gas Tidal 450.0 Volume Blood Gas Low 5.0 PEEP Setting Blood Gas J. PACOL RN Critical Value Read Back Blood Gas Notified Whom Blood Gas 07/28/2018 5:00 Notified Time :50 AM Prothrombin 16.0 H Time Prothrombin 1.3 Time Ratio INR 1.27 International Normalized Rati o Activated 39.0 H Partial Thrombo plast Time Hepatitis B NEGATIVE Surface Antigen Hepatitis B REACTIVE H Core Total Antibody Hepatitis C NEGATIVE Antibody HIV (1&2) NEGATIVE Antibody Bedside Glucose 155 Test 07/28/18 13:48 Bedside Glucose 135 Consultation Date/Type/Reason Admit Date/Time Jul 18, 2018 at 16:57 Initial Consult Date 07/19/18 Type of Consult NEPHROLOGY Requesting Provider: HARLEY STARR Exam/Review of Systems Vital Signs Vitals Vital Signs Date Temp Pulse Resp B/P (MAP) Pulse Ox O2 O2 Flow FiO2 Time Delivery Rate 07/28/18 60 13:00 07/28/18 Bag Valve 08:00 Mask 07/28/18 40 08:00 07/28/18 16 130/64 100 06:30 (86) 07/28/18 98.1 04:00 Intake and Output 07/27/18 07/27/18 07/28/18 1515:00 23:00 07:00 IntakeIntake Total 1525.093 ml 951.419 ml 569.096 ml OutputOutput Total 105 ml 143 ml 80 ml BalanceBalance 1420.093 ml 808.419 ml 489.096 ml Exam Constitutional: non-verbal, other (Intubated on ventilator ) Eyes: other (ET tube in place ), NG tube place Respiratory: diminished breath sounds, other (Bilateral Coarse BS+) Cardiovascular: regular rate and rhythm Gastrointestinal: soft, non-tender Musculoskeletal: muscle weakness, swelling, other (Bilateral UE edema ) Neurological: other (Intubated, sedated on ventilator ) Medications Medications Current Medications IV Flush (NS 3 ml) 3 ml PER PROTOCOL IV ; Start 07/18/18 at 17:30 Ondansetron HCl (Zofran Inj) 4 mg Q6H PRN IV NAUSEA AND/OR VOMITING; Start 07/18/18 at 17:30 Acetaminophen (Tylenol Tab) 650 mg Q6H PRN PO PAIN LEVEL 1-3 OR FEVER; Start 07/18/18 at 17:30 Enoxaparin Sodium (Lovenox) 30 mg DAILY SC Last administered on 07/28/18 08:53; Admin Dose 30 MG; Start 07/19/18 at 09:00 Atorvastatin Calcium (Lipitor) 40 mg QHS PO Last administered on 07/27/18 21:36; Admin Dose 40 MG; Start 07/18/18 at 21:00 Baclofen (Lioresal) 10 mg BID PO Last administered on 07/28/18 08:53; Admin Dose 10 MG; Start 07/18/18 at 21:00 Docusate Sodium (Colace) 100 mg BID PRN PO CONSTIPATION; Start 07/18/18 at 17:30 Donepezil HCl (Aricept) 5 mg DAILY PO Last administered on 07/28/18 08:53; Admin Dose 5 MG; Start 07/19/18 at 09:00 Doxazosin Mesylate (Cardura) 4 mg HS PO Last administered on 07/27/18 21:36; Admin Dose 4 MG; Start 07/18/18 at 21:00 Finasteride (Proscar) 5 mg DAILY PO Last administered on 07/28/18 08:53; Admin Dose 5 MG; Start 07/19/18 at 09:00 Fluticasone Propionate (Flonase 0.05% Nasal) 1 spray DAILY NASAL Last ad ministered on 07/25/18 08:12; Admin Dose 1 SPRAY; Start 07/19/18 at 09:00 Cefepime HCl 50 ml @ 100 mls/hr Q12 IVPB Last administered on 07/27/18at 21:37; Admin Dose 100 MLS/HR; Start 07/18/18 at 21:00 Haloperidol (Haldol) 5 mg Q2H PRN IM AGITATION Last administered on 07/19/18 02:37; Admin Dose 5 MG; Start 07/18/18 at 23:30 Levofloxacin/ Dextrose 50 ml @ 50 mls/hr Q24H IVPB Last administered on 07/27/18 12:10; Admin Dose 50 MLS/HR; Start 07/19/18 at 10:00 Pregabalin (Lyrica) 50 mg DAILY PO Last administered on 07/28/18 08:53; Admin Dose 50 MG; Start 07/19/18 at 13:00 Propofol 100 ml @ 1.909 mls/ hr Q12H IV Last administered on 07/28/18 13:53; Admin Dose 7.637 MLS/HR; Start 07/19/18 at 14:00 Allopurinol (Zyloprim) 100 mg DAILY PO Last administered on 07/28/18 08:53; Admin Dose 100 MG; Start 07/21/18 at 09:00 Docusate Sodium (Colace Liquid Cup) 100 mg BID GTB Last administered on 07/28/18 08:52; Admin Dose 100 MG; Start 07/20/18 at 21:00 Fentanyl 100 ml @ 2.5 mls/hr TITRATE IV Last administered on 07/26/18 04:53; Admin Dose 5 MLS/HR; Start 07/21/18 at 08:00 Morphine Sulfate (morphine) 6 mg Q4H PRN PO PAIN LEVEL 7-10; Start 07/21/18 at 11:00 Nifedipine (Procardia) 20 mg TID NGT Last administered on 07/28/18 08:54; Admin Dose 20 MG; Start 07/23/18 at 14:30 Lorazepam (Ativan) 1 mg Q4H PRN GTB AGITATION; Start 07/24/18 at 11:00 Insulin Aspart (Novolog Insulin Pen) NOVOLOG *MILD* ALGORI... Q4 SC Last administered on 07/28/18 08:51; Admin Dose 1 UNIT; Start 07/26/18 at 17:00 Miscellaneous Information 1 ea NOTE XX ; Start 07/26/18 at 14:30 Glucose (Glutose) 15 gm Q15M PRN PO DECREASED GLUCOSE; Start 07/26/18 at 14:30 Glucose (Glutose) 22.5 gm Q15M PRN PO DECREASED GLUCOSE; Start 07/26/18 at 14:30 Dextrose (D50w Syringe) 25 ml Q15M PRN IV DECREASED GLUCOSE; Start 07/26/18 at 14:30 Dextrose (D50w Syringe) 50 ml Q15M PRN IV DECREASED GLUCOSE; Start 07/26/18 at 14:30 Glucagon (Glucagen) 1 mg Q15M PRN IM DECREASED GLUCOSE; Start 07/26/18 at 14:30 Glucose (Glutose) 15 gm Q15M PRN BUCCAL DECREASED GLUCOSE; Start 07/26/18 at 14:30 Famotidine (Pepcid Iv) 20 mg DAILY IV Last administered on 07/28/18at 08:53; Admin Dose 20 MG; Start 07/28/18 at 09:00 Heparin Sodium (Porcine) (Heparin (1000 Units/ml)) 4,000 unit AFTER DIALYSIS CATHETER ; Start 07/28/18 at 07:30; Stop 07/28/18 at 23:00 Albumin Human 50 ml @ 100 mls/hr WITH DIALYSIS PRN IV SBP less than 90 mm Hg ; Start 07/28/18 at 07:30; Stop 07/28/18 at 23:00 Sodium Chloride (NS) -To prime the dialy... DIRECTED FOR HD PRN IV SBP less than 90 mm Hg ; Start 07/28/18 at 07:30; Stop 07/28/18 at 23:00 Mannitol 63 ml/N/A 63 ml @ 240 mls/hr WITH DIALYSIS PRN IV WITH HD. Last administered on 07/28/18at 13:48; Admin Dose 240 MLS/HR; Start 07/28/18 at 08 :30; Stop 07/28/18 at 18:00 FELICIANO RAMIREZ MD Jul 28, 2018 13:59
--- NOTE | 2018-07-28 17:28 | OPR ---
DATE OF OPERATION: PREOPERATIVE DIAGNOSIS: Renal failure. POSTOPERATIVE DIAGNOSIS: Renal failure. OPERATION PERFORMED: Right femoral hemodialysis catheter placement. SURGEON: Opal Cazares MD ANESTHESIA: Local. CONSENT: Risks, benefits, complications, alternative therapies explained to the patient and the [facility] ly. Consent obtained. OPERATIVE TECHNIQUE: The patient was placed in supine position, prepped and draped in usual sterile fashion. 1% lidocaine was used throughout the operation for local anesthesia. Access was gained in the right femoral vein. Guidewire was advanced through without any difficulty. Subcutaneous tissues dilated. A 25 cm dialysis catheter advanced over guidewire and secured to skin using silk sutures. Both ports of the catheter were aspirated and injected using saline solution. The patient tolerated procedure well. Dictated By: OPAL BADILLO/JAVIER Conf#: [id number] DID#: [id number] CC: HARLEY STRAR MD;*EndCC*
[2018-07-28] MEDS: CEFEPIME 1GM/50 ML IVPB SCH (20:23)
[2018-07-28] MEDS: ATORVASTATIN 40 MG TAB PO SCH (20:25)
[2018-07-28] MEDS: DOXAZOSIN 4 MG TAB PO SCH (20:26)
[2018-07-29] VITALS (57 sets, daily range): BP systolic 96–142; BP diastolic 49–74; PULSE 60–64; RESP 14–27
[2018-07-29] MEDS: INSULIN ASPART [NOVOLOG] 3 ML PEN SC SCH ×6 (01:00→21:29)
[2018-07-29] MEDS: PROPOFOL 100 ML IV SCH ×2 (07:23→21:42)
[2018-07-29] MEDS: FLUTICASONE 0.05% 16 GM NAS SPRAY NASAL SCH (09:00)
[2018-07-29] MEDS: DOCUSATE SODIUM 10 MG/ML (10ML CUP) GTB SCH ×2 (09:15→21:21)
[2018-07-29] MEDS: FINASTERIDE 5 MG TAB PO SCH (09:15)
[2018-07-29] MEDS: PREGABALIN 50 MG CAP PO SCH (09:15)
[2018-07-29] MEDS: BACLOFEN 10 MG TAB PO SCH ×2 (09:15→21:22)
[2018-07-29] MEDS: ALLOPURINOL 100 MG TAB PO SCH (09:15)
[2018-07-29] MEDS: FAMOTIDINE 20 MG INJ IV SCH (09:15)
[2018-07-29] MEDS: DONEPEZIL 5 MG TAB PO SCH (09:15)
[2018-07-29] MEDS: NIFEdipine 10 MG CAP NGT SCH ×3 (09:16→21:23)
[2018-07-29] MEDS: ENOXAPARIN 30 MG/0.3 ML SYG SC SCH (09:25)
[2018-07-29] MEDS: BALSAM PERU/CASTOR OIL 60 GM TUBE TOP SCH ×2 (09:26→21:23)
--- NOTE | 2018-07-29 09:42 | CONS ---
Date/Time of Note Date/Time of Note DATE: 07/29/18 TIME: 09:41 Consult Date/Type/Reason Admit Date/Time Jul 18, 2018 at 16:57 Initial Consult Date 07/19/18 Type of Consultation: Pulm/CCM Requesting Provider: HARLEY STARR Subjective Remains somnolent on mechanical ventilation. Opens eyes to painful stimuli otherwise not following commands. Having hemodialysis this morning. Chest x- ray shows ongoing pulmonary edema versus ARDS. Objective Vital Signs Date Temp Pulse Resp B/P (MAP) Pulse Ox O2 O2 Flow FiO2 Time Delivery Rate 07/29/18 60 08:00 07/29/18 16 126/63 100 Mechanical 07:00 (84) Ventilator 07/29/18 40 04:35 07/29/18 98.5 04:00 Intake and Output 07/28/18 07/28/18 07/29/18 1515:00 23:00 07:00 IntakeIntake Total 531.459 ml 712.911 ml 534.822 ml OutputOutput Total 215 ml 51 ml 45 ml BalanceBalance 316.459 ml 661.911 ml 489.822 ml Exam GENERAL: Elderly gentleman orally intubated on mechanical ventilation VITAL SIGNS: per chart NECK: Supple. No JVD or lymphadenopathy. CARDIAC EXAM: S1, S2. No added sounds or murmurs. CHEST: Diminished air entry bilaterally ABDOMEN: Soft, nontender. No guarding or rebound. EXTREMITIES: No cyanosis, clubbing edema +1 NEUROLOGIC: Generalized weakness. Results/Medications Result Diagram: 07/29/18 0440 07/29/18 0440 Results 24 hrs Laboratory Tests Test 07/28/18 13:48 07/28/18 17:07 07/28/18 20:23 07/29/18 01:27 Bedside Glucose 135 108 137 122 Test 07/29/18 04:40 07/29/18 05:11 07/29/18 09:20 White Blood Count 12.0 H Red Blood Count 2.19 L Hemoglobin 7.0 L Hematocrit 20.7 L Mean Corpuscular 94.5 Volume Mean Corpuscular 32.0 Hemoglobin Mean Corpuscular 33.8 Hemoglobin Concent Red Cell 14.2 Distribution Width Platelet Count 137 L Mean Platelet 13.2 H Volume Immature 3.200 H Granulocytes % Neutrophils % 87.3 H Lymphocytes % 3.2 L Monocytes % 5.0 Eosinophils % 1.2 Basophils % 0.1 Nucleated Red 0.0 Blood Cells % Immature 0.390 H Granulocytes # Neutrophils # 10.5 H Lymphocytes # 0.4 L Monocytes # 0.6 Eosinophils # 0.2 Basophils # 0.0 Nucleated Red 0.0 Blood Cells # Prothrombin Time 16.7 H Prothrombin Time 1.3 Ratio INR International 1.34 Normalized Ratio Activated 38.[address] Time Sodium Level 137 Potassium Level 4.7 Chloride Level 105 Carbon Dioxide 22 Level Anion Gap 10 Blood Urea 107 H Nitrogen Creatinine 3.87 H Est Glomerular Filtrat Rate mL/min Glucose Level 126 Calcium Level 8.2 L Total Bilirubin 0.0 L Direct Bilirubin 0.00 Indirect Bilirubin 0.0 Aspartate Amino 38 Transf (AST/SGOT) Alanine 38 Aminotransferase ( ALT/SGPT) Alkaline 124 H Phosphatase Total Protein 4.5 L Albumin 2.1 L Globulin 2.40 Albumin/Globulin 0.87 Ratio Bedside Glucose 132 145 Medications Current Medications IV Flush (NS 3 ml) 3 ml PER PROTOCOL IV ; Start 07/18/18 at 17:30 Ondansetron HCl (Zofran Inj) 4 mg Q6H PRN IV NAUSEA AND/OR VOMITING; Start 07/18/18 at 17:30 Acetaminophen (Tylenol Tab) 650 mg Q6H PRN PO PAIN LEVEL 1-3 OR FEVER; Start 07/18/18 at 17:30 Enoxaparin Sodium (Lovenox) 30 mg DAILY SC Last administered on 07/29/18 09:25; Admin Dose 30 MG; Start 07/19/18 at 09:00 Atorvastatin Calcium (Lipitor) 40 mg QHS PO Last administered on 07/28/18at 20:25; Admin Dose 40 MG; Start 07/18/18 at 21:00 Baclofen (Lioresal) 10 mg BID PO Last administered on 07/29/18 09:15; Admin Dose 10 MG; Start 07/18/18 at 21:00 Docusate Sodium (Colace) 100 mg BID PRN PO CONSTIPATION; Start 07/18/18 at 17:30 Donepezil HCl (Aricept) 5 mg DAILY PO Last administered on 07/29/18 09:15; A dmin Dose 5 MG; Start 07/19/18 at 09:00 Doxazosin Mesylate (Cardura) 4 mg HS PO Last administered on 07/28/18 20:26; Admin Dose 4 MG; Start 07/18/18 at 21:00 Finasteride (Proscar) 5 mg DAILY PO Last administered on 07/29/18 09:15; Admin Dose 5 MG; Start 07/19/18 at 09:00 Fluticasone Propionate (Flonase 0.05% Nasal) 1 spray DAILY NASAL Last administered on 07/25/18 08:12; Admin Dose 1 SPRAY; Start 07/19/18 at 09:00 Haloperidol (Haldol) 5 mg Q2H PRN IM AGITATION Last administered on 07/19/18 02:37; Admin Dose 5 MG; Start 07/18/18 at 23:30 Levofloxacin/ Dextrose 50 ml @ 50 mls/hr Q24H IVPB Last administered on 07/28/18 15:35; Admin Dose 50 MLS/HR; Start 07/19/18 at 10:00 Pregabalin (Lyrica) 50 mg DAILY PO Last administered on 07/29/18 09:15; Admin Dose 50 MG; Start 07/19/18 at 13:00 Propofol 100 ml @ 1.909 mls/ hr Q12H IV Last administered on 07/29/18 07:23; Admin Dose 7.637 MLS/HR; Start 07/19/18 at 14:00 Allopurinol (Zyloprim) 100 mg DAILY PO Last administered on 07/29/18 09:15; Admin Dose 100 MG; Start 07/21/18 at 09:00 Docusate Sodium (Colace Liquid Cup) 100 mg BID GTB Last administered on 07/29/18 09:15; Admin Dose 100 MG; Start 07/20/18 at 21:00 Fentanyl 100 ml @ 2.5 mls/hr TITRATE IV Last administered on 07/26/18 04:53; Admin Dose 5 MLS/HR; Start 07/21/18 at 08:00 Morphine Sulfate (morphine) 6 mg Q4H PRN PO PAIN LEVEL 7-10; Start 07/21/18 at 11:00 Nifedipine (Procardia) 20 mg TID NGT Last administered on 07/29/18 09:16; Admin Dose 20 MG; Start 07/23/18 at 14:30 Lorazepam (Ativan) 1 mg Q4H PRN GTB AGITATION; Start 07/24/18 at 11:00 Insulin Aspart (Novolog Insulin Pen) NOVOLOG *MILD* ALGORI... Q4 SC Last administered on 07/29/18at 09:26; Admin Dose 1 UNIT; Start 07/26/18 at 17:00 Miscellaneous Information 1 ea NOTE XX ; Start 07/26/18 at 14:30 Glucose (Glutose) 15 gm Q15M PRN PO DECREASED GLUCOSE; Start 07/26/18 at 14:30 Glucose (Glutose) 22.5 gm Q15M PRN PO DECREASED GLUCOSE; Start 07/26/18 at 14:30 Dextrose (D50w Syringe) 25 ml Q15M PRN IV DECREASED GLUCOSE; Start 07/26/18 at 14:30 Dextrose (D50w Syringe) 50 ml Q15M PRN IV DECREASED GLUCOSE; Start 07/26/18 at 14:30 Glucagon (Glucagen) 1 mg Q15M PRN IM DECREASED GLUCOSE; Start 07/26/18 at 14:30 Glucose (Glutose) 15 gm Q15M PRN BUCCAL DECREASED GLUCOSE; Start 07/26/18 at 14:30 Famotidine (Pepcid Iv) 20 mg DAILY IV Last administered on 07/29/18at 09:15; Adm in Dose 20 MG; Start 07/28/18 at 09:00 Cefepime HCl 50 ml @ 100 mls/hr Q24H IVPB Last administered on 07/28/18at 20:23; Admin Dose 100 MLS/HR; Start 07/28/18 at 21:00 Heparin Sodium (Porcine) (Heparin (1000 Units/ml)) 3,000 unit AFTER DIALYSIS CATHETER ; Start 07/29/18 at 09:30 Assessment/Plan Chief Complaint/Hosp Course Assessment 1. Acute hypoxemic respiratory failure ARDS versus pulmonary edema 2. Encephalopathy toxic metabolic 3. Anemia questionable GI bleed 4. Progressive renal failure now pending hemodialysis 5. Dysphagia Plan 1. Continue mechanical ventilation, not stable for CPAP weaning trial yet. 2. Emergent hemodialysis for volume removal as tolerated 3. Decrease sedation as tolerated 4. Tube feeding as tolerated 5. Consider transfusion 1 unit packed red blood cells cc 40 mins. Overall prognosis very poor consider family conference regarding goals of care SPENSER RICO MD[facility] Jul 29, 2018 09:42
[2018-07-29] MEDS: HEPARIN 1000 UNITS/ML 10 ML INJ CATHETER SCH (12:27)
--- NOTE | 2018-07-29 12:37 | PN ---
Date/Time of Note Date/Time of Note DATE: 07/29/18 TIME: 12:36 Assessment/Plan VTE Prophylaxis Risk score (from Ns)>0 risk: 11 SCD applied (from Ns): Yes Pharmacological prophylaxis: LMWH Lines/Catheters IV Catheter Type (from [facility]): KEI Urinary Cath still in place: Yes Reason Cath still needed: skin wounds contaminated by urine Assessment/Plan Hospital Course 1) pneumonia - IV antibiotics 2) respiratory failure - on ventilator support - monitor clinically 3) renal insufficiency - nephrology on the case - may need to be started on hemodialysis Result Diagram: 07/29/18 0440 07/29/18 0440 Results 24hrs Laboratory Tests Test 07/28/18 13:48 07/28/18 17:07 07/28/18 20:23 07/29/18 01:27 Bedside Glucose 135 108 137 122 Test 07/29/18 04:40 07/29/18 05:11 07/29/18 09:20 White Blood Count 12.0 H Red Blood Count 2.19 L Hemoglobin 7.0 L Hematocrit 20.7 L Mean Corpuscular 94.5 Volume Mean Corpuscular 32.0 Hemoglobin Mean Corpuscular 33.8 Hemoglobin Concent Red Cell 14.2 Distribution Width Platelet Count 137 L Mean Platelet 13.2 H Volume Immature 3.200 H Granulocytes % Neutrophils % 87.3 H Lymphocytes % 3.2 L Monocytes % 5.0 Eosinophils % 1.2 Basophils % 0.1 Nucleated Red 0.0 Blood Cells % Immature 0.390 H Granulocytes # Neutrophils # 10.5 H Lymphocytes # 0.4 L Monocytes # 0.6 Eosinophils # 0.2 Basophils # 0.0 Nucleated Red 0.0 Blood Cells # Prothrombin Time 16.7 H Prothrombin Time 1.3 Ratio INR International 1.34 Normalized Ratio Activated 38.[address] Time Sodium Level 137 Potassium Level 4.7 Chloride Level 105 Carbon Dioxide 22 Level Anion Gap 10 Blood Urea 107 H Nitrogen Creatinine 3.87 H Est Glomerular Filtrat Rate mL/min Glucose Level 126 Calcium Level 8.2 L Total Bilirubin 0.0 L Direct Bilirubin 0.00 Indirect Bilirubin 0.0 Aspartate Amino 38 Transf (AST/SGOT) Alanine 38 Aminotransferase ( ALT/SGPT) Alkaline 124 H Phosphatase Total Protein 4.5 L Albumin 2.1 L Globulin 2.40 Albumin/Globulin 0.87 Ratio Bedside Glucose 132 145 Subjective 24 Hr Interval Summary Free Text/Dictation Patient sedated on ventilator, on hemodialysis Exam/Review of Systems Vital Signs Vitals Vital Signs Date Temp Pulse Resp B/P (MAP) Pulse Ox O2 O2 Flow FiO2 Time Delivery Rate 07/29/18 63 18 100 Mechanical 12:13 Ventilator 07/29/18 137/58 09:50 (84) 07/29/18 40 08:00 07/29/18 98.7 08:00 Intake and Output 07/28/18 07/28/18 07/29/18 1515:00 23:00 07:00 IntakeIntake Total 531.459 ml 712.911 ml 534.822 ml OutputOutput Total 215 ml 51 ml 45 ml BalanceBalance 316.459 ml 661.911 ml 489.822 ml Exam Constitutional: well developed Head: normocephalic, atraumatic Neck: supple Respiratory: diminished breath sounds Cardiovascular: regular rate and rhythm Gastrointestinal: soft, non-tender Extremities: normal pulses Medications Medications Current Medications IV Flush (NS 3 ml) 3 ml PER PROTOCOL IV ; Start 07/18/18 at 17:30 Ondansetron HCl (Zofran Inj) 4 mg Q6H PRN IV NAUSEA AND/OR VOMITING; Start 07/18/18 at 17:30 Acetaminophen (Tylenol Tab) 650 mg Q6H PRN PO PAIN LEVEL 1-3 OR FEVER; Start 07/18/18 at 17:30 Enoxaparin Sodium (Lovenox) 30 mg DAILY SC Last administered on 07/29/18 09:25; Admin Dose 30 MG; Start 07/19/18 at 09:00 Atorvastatin Calcium (Lipitor) 40 mg QHS PO Last administered on 07/28/18at 20:25; Admin Dose 40 MG; Start 07/18/18 at 21:00 Baclofen (Lioresal) 10 mg BID PO Last administered on 07/29/18at 09:15; Admin Dos e 10 MG; Start 07/18/18 at 21:00 Docusate Sodium (Colace) 100 mg BID PRN PO CONSTIPATION; Start 07/18/18 at 17:30 Donepezil HCl (Aricept) 5 mg DAILY PO Last administered on 07/29/18at 09:15; Admin Dose 5 MG; Start 07/19/18 at 09:00 Doxazosin Mesylate (Cardura) 4 mg HS PO Last administered on 07/28/18 20:26; Admin Dose 4 MG; Start 07/18/18 at 21:00 Finasteride (Proscar) 5 mg DAILY PO Last administered on 07/29/18 09:15; Admin Dose 5 MG; Start 07/19/18 at 09:00 Fluticasone Propionate (Flonase 0.05% Nasal) 1 spray DAILY NASAL Last administered on 07/25/18 08:12; Admin Dose 1 SPRAY; Start 07/19/18 at 09:00 Haloperidol (Haldol) 5 mg Q2H PRN IM AGITATION Last administered on 07/19/18 02:37; Admin Dose 5 MG; Start 07/18/18 at 23:30 Levofloxacin/ Dextrose 50 ml @ 50 mls/hr Q24H IVPB Last administered on 07/28/18 15:35; Admin Dose 50 MLS/HR; Start 07/19/18 at 10:00 Pregabalin (Lyrica) 50 mg DAILY PO Last administered on 07/29/18 09:15; Admin Dose 50 MG; Start 07/19/18 at 13:00 Propofol 100 ml @ 1.909 mls/ hr Q12H IV Last administered on 07/29/18 07:23; Admin Dose 7.637 MLS/HR; Start 07/19/18 at 14:00 Allopurinol (Zyloprim) 100 mg DAILY PO Last administered on 07/29/18 09:15; Admin Dose 100 MG; Start 07/21/18 at 09:00 Docusate Sodium (Colace Liquid Cup) 100 mg BID GTB Last administered on 07/29/18 09:15; Admin Dose 100 MG; Start 07/20/18 at 21:00 Fentanyl 100 ml @ 2.5 mls/hr TITRATE IV Last administered on 07/26/18 04:53; Admin Dose 5 MLS/HR; Start 07/21/18 at 08:00 Morphine Sulfate (morphine) 6 mg Q4H PRN PO PAIN LEVEL 7-10; Start 07/21/18 at 11:00 Nifedipine (Procardia) 20 mg TID NGT Last administered on 07/29/18 09:16; Admin Dose 20 MG; Start 07/23/18 at 14:30 Lorazepam (Ativan) 1 mg Q4H PRN GTB AGITATION; Start 07/24/18 at 11:00 Insulin Aspart (Novolog Insulin Pen) NOVOLOG *MILD* ALGORI... Q4 SC Last administered on 07/29/18at 09:26; Admin Dose 1 UNIT; Start 07/26/18 at 17:00 Miscellaneous Information 1 ea NOTE XX ; Start 07/26/18 at 14:30 Glucose (Glutose) 15 gm Q15M PRN PO DECREASED GLUCOSE; Start 07/26/18 at 14:30 Glucose (Glutose) 22.5 gm Q15M PRN PO DECREASED GLUCOSE; Start 07/26/18 at 14:30 Dextrose (D50w Syringe) 25 ml Q15M PRN IV DECREASED GLUCOSE; Start 07/26/18 at 14:30 Dextrose (D50w Syringe) 50 ml Q15M PRN IV DECREASED GLUCOSE; Start 07/26/18 at 14:30 Glucagon (Glucagen) 1 mg Q15M PRN IM DECREASED GLUCOSE; Start 07/26/18 at 14:30 Glucose (Glutose) 15 gm Q15M PRN BUCCAL DECREASED GLUCOSE; Start 07/26/18 at 14:30 Famotidine (Pepcid Iv) 20 mg DAILY IV Last administered on 07/29/18at 09:15; Admin Dose 20 MG; Start 07/28/18 at 09:00 Cefepime HCl 50 ml @ 100 mls/hr Q24H IVPB Last administered on 07/28/18at 20:23; Admin Dose 100 MLS/HR; Start 07/28/18 at 21:00 Heparin Sodium (Porcine) (Heparin (1000 Units/ml)) 3,000 unit AFTER DIALYSIS CATHETER Last administered on 07/29/18at 12:27; Admin Dose 3,000 UNIT; Start 07/29/18 at 09:30 HARLEY STARR Jul 29, 2018 12:37
--- NOTE | 2018-07-29 13:00 | CONS ---
Date/Time of Note Date/Time of Note DATE: 07/29/18 TIME: 13:00 Assessment/Plan Assessment/Plan Assessment/Plan 1. Acute renal failure due to ATN from sepsis + prerenal azotemia 2. Sepsis due to PNA 3. Acute Hypoxemic respiratory failure due to PNA - Intubated on ventilator 4. H/o CAD s/p previous stent placement 5. h/o Pacemaker placement 6. H/o HTN 7. H/o HL 8. H/o Chronic back pain, Prostate CA 9. Hypernatremia - now resolved 10. Hyperuricemia, on allopurinol Plan:- started on HD on 07/28/18, s/p HD x 2 days in a row, FiO2 down to 40%, BP stable, paln for HD tomorrow for 3 hr then we will switch him to HD intermittently 3 times a week HIV, Hepatitis panel negative Pulmonary to manage ventilator- pt remains intubated on ventilator - After pt weaned off ventilator we will decide about terminal makeup operator HD and permacath placement will follow up Result Diagram: 07/29/18 0440 07/29/18 0440 Results 24hrs Laboratory Tests Test 07/28/18 13:48 07/28/18 17:07 07/28/18 20:23 07/29/18 01:27 Bedside Glucose 135 108 137 122 Test 07/29/18 04:40 07/29/18 05:11 07/29/18 09:20 White Blood Count 12.0 H Red Blood Count 2.19 L Hemoglobin 7.0 L Hematocrit 20.7 L Mean Corpuscular 94.5 Volume Mean Corpuscular 32.0 Hemoglobin Mean Corpuscular 33.8 Hemoglobin Concent Red Cell 14.2 Distribution Width Platelet Count 137 L Mean Platelet 13.2 H Volume Immature 3.200 H Granulocytes % Neutrophils % 87.3 H Lymphocytes % 3.2 L Monocytes % 5.0 Eosinophils % 1.2 Basophils % 0.1 Nucleated Red 0.0 Blood Cells % Immature 0.390 H Granulocytes # Neutrophils # 10.5 H Lymphocytes # 0.4 L Monocytes # 0.6 Eosinophils # 0.2 Basophils # 0.0 Nucleated Red 0.0 Blood Cells # Prothrombin Time 16.7 H Prothrombin Time 1.3 Ratio INR International 1.34 Normalized Ratio Activated 38.[address] Time Sodium Level 137 Potassium Level 4.7 Chloride Level 105 Carbon Dioxide 22 Level Anion Gap 10 Blood Urea 107 H Nitrogen Creatinine 3.87 H Est Glomerular Filtrat Rate mL/min Glucose Level 126 Calcium Level 8.2 L Total Bilirubin 0.0 L Direct Bilirubin 0.00 Indirect Bilirubin 0.0 Aspartate Amino 38 Transf (AST/SGOT) Alanine 38 Aminotransferase ( ALT/SGPT) Alkaline 124 H Phosphatase Total Protein 4.5 L Albumin 2.1 L Globulin 2.40 Albumin/Globulin 0.87 Ratio Bedside Glucose 132 145 Consultation Date/Type/Reason Admit Date/Time Jul 18, 2018 at 16:57 Initial Consult Date 07/19/18 Type of Consult NEPHROLOGY Requesting Provider: HARLEY STARR Exam/Review of Systems Vital Signs Vitals Vital Signs Date Temp Pulse Resp B/P (MAP) Pulse Ox O2 O2 Flow FiO2 Time Delivery Rate 07/29/18 63 18 100 Mechanical 12:13 Ventilator 07/29/18 137/58 09:50 (84) 07/29/18 40 08:00 07/29/18 98.7 08:00 Intake and Output 07/28/18 07/28/18 07/29/18 1414:59 22:59 06:59 IntakeIntake Total 531.459 ml 720.548 ml 569.822 ml OutputOutput Total 220 ml 46 ml 50 ml BalanceBalance 311.459 ml 674.548 ml 519.822 ml Exam Constitutional: non-verbal, other (Intubated on ventilator ) Eyes: other (ET tube in place ), NG tube place Respiratory: diminished breath sounds, other (Bilateral Coarse BS+) Cardiovascular: regular rate and rhythm Gastrointestinal: soft, non-tender Musculoskeletal: muscle weakness, swelling, other (Bilateral UE edema ) Neurological: other (Intubated, sedated on ventilator ) Medications Medications Current Medications IV Flush (NS 3 ml) 3 ml PER PROTOCOL IV ; Start 07/18/18 at 17:30 Ondansetron HCl (Zofran Inj) 4 mg Q6H PRN IV NAUSEA AND/OR VOMITING; Start 07/18/18 at 17:30 Acetaminophen (Tylenol Tab) 650 mg Q6H PRN PO PAIN LEVEL 1-3 OR FEVER; Start 07/18/18 at 17:30 Enoxaparin Sodium (Lovenox) 30 mg DAILY SC Last administered on 07/29/18at 09:25; Admin Dose 30 MG; Start 07/19/18 at 09:00 Atorvastatin Calcium (Lipitor) 40 mg QHS PO Last administered on 07/28/18 20:25; Admin Dose 40 MG; Start 07/18/18 at 21:00 Baclofen (Lioresal) 10 mg BID PO Last administered on 07/29/18 09:15; Admin Dose 10 MG; Start 07/18/18 at 21:00 Docusate Sodium (Colace) 100 mg BID PRN PO CONSTIPATION; Start 07/18/18 at 17:30 Donepezil HCl (Aricept) 5 mg DAILY PO Last administered on 07/29/18 09:15; Admin Dose 5 MG; Start 07/19/18 at 09:00 Doxazosin Mesylate (Cardura) 4 mg HS PO Last administered on 07/28/18 20:26; Admin Dose 4 MG; Start 07/18/18 at 21:00 Finasteride (Proscar) 5 mg DAILY PO Last administered on 07/29/18 09:15; Admin Dose 5 MG; Start 07/19/18 at 09:00 Fluticasone Propionate (Flonase 0.05% Nasal) 1 spray DAILY NASAL Last administered on 07/25/18 08:12; Admin Dose 1 SPRAY; Start 07/19/18 at 09:00 Haloperidol (Haldol) 5 mg Q2H PRN IM AGITATION Last administered on 07/19/18 02:37; Admin Dose 5 MG; Start 07/18/18 at 23:30 Levofloxacin/ Dextrose 50 ml @ 50 mls/hr Q24H IVPB Last administered on 07/28/18 15:35; Admin Dose 50 MLS/HR; Start 07/19/18 at 10:00 Pregabalin (Lyrica) 50 mg DAILY PO Last administered on 07/29/18 09:15; Admin Dose 50 MG; Start 07/19/18 at 13:00 Propofol 100 ml @ 1.909 mls/ hr Q12H IV Last administered on 07/29/18 07:23; Admin Dose 7.637 MLS/HR; Start 07/19/18 at 14:00 Allopurinol (Zyloprim) 100 mg DAILY PO Last administered on 07/29/18 09:15; Admin Dose 100 MG; Start 07/21/18 at 09:00 Docusate Sodium (Colace Liquid Cup) 100 mg BID GTB Last administered on 07/29/18 09:15; Admin Dose 100 MG; Start 07/20/18 at 21:00 Fentanyl 100 ml @ 2.5 mls/hr TITRATE IV Last administered on 07/26/18at 04:53; Admin Dose 5 MLS/HR; Start 07/21/18 at 08:00 Morphine Sulfate (morphine) 6 mg Q4H PRN PO PAIN LEVEL 7-10; Start 07/21/18 at 11:00 Nifedipine (Procardia) 20 mg TID NGT Last administered on 07/29/18 09:16; Admin Dose 20 MG; Start 07/23/18 at 14:30 Lorazepam (Ativan) 1 mg Q4H PRN GTB AGITATION; Start 07/24/18 at 11:00 Insulin Aspart (Novolog Insulin Pen) NOVOLOG *MILD* ALGORI... Q4 SC Last administered on 07/29/18 09:26; Admin Dose 1 UNIT; Start 07/26/18 at 17:00 Miscellaneous Information 1 ea NOTE XX ; Start 07/26/18 at 14:30 Glucose (Glutose) 15 gm Q15M PRN PO DECREASED GLUCOSE; Start 07/26/18 at 14:30 Glucose (Glutose) 22.5 gm Q15M PRN PO DECREASED GLUCOSE; Start 07/26/18 at 14:30 Dextrose (D50w Syringe) 25 ml Q15M PRN IV DECREASED GLUCOSE; Start 07/26/18 at 14:30 Dextrose (D50w Syringe) 50 ml Q15M PRN IV DECREASED GLUCOSE; Start 07/26/18 at 14:30 Glucagon (Glucagen) 1 mg Q15M PRN IM DECREASED GLUCOSE; Start 07/26/18 at 14:30 Glucose (Glutose) 15 gm Q15M PRN BUCCAL DECREASED GLUCOSE; Start 07/26/18 at 14:30 Famotidine (Pepcid Iv) 20 mg DAILY IV Last administered on 07/29/18 09:15; Admin Dose 20 MG; Start 07/28/18 at 09:00 Cefepime HCl 50 ml @ 100 mls/hr Q24H IVPB Last administered on 07/28/18at 20:23; Admin Dose 100 MLS/HR; Start 07/28/18 at 21:00 Heparin Sodium (Porcine) (Heparin (1000 Units/ml)) 3,000 unit AFTER DIALYSIS CATHETER Last administered on 07/29/18at 12:27; Admin Dose 3,000 UNIT; Start 07/29/18 at 09:30 FELICIANO RAMIREZ MD Jul 29, 2018 13:00
[2018-07-29] MEDS: CEFEPIME 1GM/50 ML IVPB SCH (21:21)
[2018-07-29] MEDS: DOXAZOSIN 4 MG TAB PO SCH (21:22)
[2018-07-29] MEDS: ATORVASTATIN 40 MG TAB PO SCH (21:22)
[2018-07-30] VITALS (49 sets, daily range): BP systolic 113–154; BP diastolic 49–69; PULSE 60–67; RESP 13–26
[2018-07-30] MEDS: INSULIN ASPART [NOVOLOG] 3 ML PEN SC SCH ×6 (01:13→21:30)
[2018-07-30] MEDS: ALLOPURINOL 100 MG TAB PO SCH (08:55)
[2018-07-30] MEDS: NIFEdipine 10 MG CAP NGT SCH ×3 (08:55→21:17)
[2018-07-30] MEDS: DONEPEZIL 5 MG TAB PO SCH (08:55)
[2018-07-30] MEDS: DOCUSATE SODIUM 10 MG/ML (10ML CUP) GTB SCH ×2 (08:55→21:16)
[2018-07-30] MEDS: FINASTERIDE 5 MG TAB PO SCH (08:55)
[2018-07-30] MEDS: FAMOTIDINE 20 MG INJ IV SCH (08:55)
[2018-07-30] MEDS: PREGABALIN 50 MG CAP PO SCH (08:55)
[2018-07-30] MEDS: BACLOFEN 10 MG TAB PO SCH ×2 (08:55→21:17)
[2018-07-30] MEDS: BALSAM PERU/CASTOR OIL 60 GM TUBE TOP SCH ×2 (08:56→21:18)
[2018-07-30] MEDS: ENOXAPARIN 30 MG/0.3 ML SYG SC SCH (08:57)
[2018-07-30] MEDS: FLUTICASONE 0.05% 16 GM NAS SPRAY NASAL SCH (09:00)
--- NOTE | 2018-07-30 09:45 | CONS ---
Date/Time of Note Date/Time of Note DATE: 07/30/18 TIME: 09:44 Consult Date/Type/Reason Admit Date/Time Jul 18, 2018 at 16:57 Initial Consult Date 07/19/18 Type of Consultation: Pulm/CCM Requesting Provider: HARLEY STARR Patient remains somnolent on mechanical ventilation. Not opening eyes or following commands. GCS of 3 per nurse exam this morning. Continues hemodialysis this morning. Objective Vital Signs Date Temp Pulse Resp B/P (MAP) Pulse Ox O2 O2 Flow FiO2 Time Delivery Rate 07/30/18 30 08:00 07/30/18 60 08:00 07/30/18 21 99 05:25 07/30/18 132/66 05:00 (88) 07/30/18 Mechanical 05:00 Ventilator 07/30/18 98.8 04:00 Intake and Output 07/29/18 07/29/18 07/30/18 1515:00 23:00 07:00 IntakeIntake Total 811.096 ml 391.096 ml 336.096 ml OutputOutput Total 2706 ml 40 ml 20 ml BalanceBalance -1894.904 ml 351.096 ml 316.096 ml Exam GENERAL: Elderly gentleman orally intubated on mechanical ventilation VITAL SIGNS: per chart NECK: Supple. No JVD or lymphadenopathy. CARDIAC EXAM: S1, S2. No added sounds or murmurs. CHEST: Diminished air entry bilaterally ABDOMEN: Soft, nontender. No guarding or rebound. EXTREMITIES: No cyanosis, clubbing edema +1 NEUROLOGIC: Generalized weakness. Results/Medications Result Diagram: 07/30/18 0430 07/30/18 0430 Results 24 hrs Laboratory Tests Test 07/29/18 13:10 07/29/18 17:04 07/29/18 21:25 07/30/18 01:09 Bedside Glucose 165 175 142 142 Test 07/30/18 04:30 07/30/18 05:09 07/30/18 08:54 White Blood Count 11.3 H Red Blood Count 2.26 L Hemoglobin 7.2 L Hematocrit 21.1 L Mean Corpuscular Volume 93.4 Mean Corpuscular 31.9 Hemoglobin Mean Corpuscular 34.1 Hemoglobin Concent Red Cell Distribution 14.0 Width Platelet Count 147 Mean Platelet Volume 12.6 H Immature Granulocytes % 2.000 H Neutrophils % 86.5 H Lymphocytes % 4.5 L Monocytes % 5.4 Eosinophils % 1.5 Basophils % 0.1 Nucleated Red Blood 0.0 Cells % Immature Granulocytes # 0.230 H Neutrophils # 9.8 H Lymphocytes # 0.5 L Monocytes # 0.6 Eosinophils # 0.2 Basophils # 0.0 Nucleated Red Blood 0.0 Cells # Sodium Level 138 Potassium Level 4.2 Chloride Level 99 Carbon Dioxide Level 26 Anion Gap 13 Blood Urea Nitrogen 85 H Creatinine 3.70 H Est Glomerular Filtrat Rate mL/min Glucose Level 125 Calcium Level 8.6 Phosphorus Level 6.2 H Magnesium Level 2.9 H Bedside Glucose 134 143 Medications Current Medications IV Flush (NS 3 ml) 3 ml PER PROTOCOL IV ; Start 07/18/18 at 17:30 Ondansetron HCl (Zofran Inj) 4 mg Q6H PRN IV NAUSEA AND/OR VOMITING; Start 07/18/18 at 17:30 Acetaminophen (Tylenol Tab) 650 mg Q6H PRN PO PAIN LEVEL 1-3 OR FEVER; Start 07/18/18 at 17:30 Enoxaparin Sodium (Lovenox) 30 mg DAILY SC Last administered on 07/30/18 08:57; Admin Dose 30 MG; Start 07/19/18 at 09:00 Atorvastatin Calcium (Lipitor) 40 mg QHS PO Last administered on 07/29/18 21:22; Admin Dose 40 MG; Start 07/18/18 at 21:00 Baclofen (Lioresal) 10 mg BID PO Last administered on 07/30/18 08:55; Admin Dose 10 MG; Start 07/18/18 at 21:00 Docusate Sodium (Colace) 100 mg BID PRN PO CONSTIPATION; Start 07/18/18 at 17:30 Donepezil HCl (Aricept) 5 mg DAILY PO Last administered on 07/30/18 08:55; Admin Dose 5 MG; Start 07/19/18 at 09:00 Doxazosin Mesylate (Cardura) 4 mg HS PO Last administered on 07/29/18 21:22; Admin Dose 4 MG; Start 07/18/18 at 21:00 Finasteride (Proscar) 5 mg DAILY PO Last administered on 07/30/18 08:55; Admin Dose 5 MG; Start 07/19/18 at 09:00 Fluticasone Propionate (Flonase 0.05% Nasal) 1 spray DAILY NASAL Last administered on 07/25/18at 08:12; Admin Dose 1 SPRAY; Start 07/19/18 at 09:00 Haloperidol (Haldol) 5 mg Q2H PRN IM AGITATION Last administered on 07/19/18at 02:37; Admin Dose 5 MG; Start 07/18/18 at 23:30 Levofloxacin/ Dextrose 50 ml @ 50 mls/hr Q24H IVPB Last administered on at 15:35; Admin Dose 50 MLS/HR; Start 07/19/18 at 10:00 Pregabalin (Lyrica) 50 mg DAILY PO Last administered on 07/30/18 08:55; Admin Dose 50 MG; Start 07/19/18 at 13:00 Propofol 100 ml @ 1.909 mls/ hr Q12H IV Last administered on 07/29/18 21:42; Admin Dose 7.637 MLS/HR; Start 07/19/18 at 14:00 Allopurinol (Zyloprim) 100 mg DAILY PO Last administered on 07/30/18 08:55; Admin Dose 100 MG; Start 07/21/18 at 09:00 Docusate Sodium (Colace Liquid Cup) 100 mg BID GTB Last administered on 07/30/18 08:55; Admin Dose 100 MG; Start 07/20/18 at 21:00 Fentanyl 100 ml @ 2.5 mls/hr TITRATE IV Last administered on 07/26/18at 04:53; Admin Dose 5 MLS/HR; Start 07/21/18 at 08:00 Morphine Sulfate (morphine) 6 mg Q4H PRN PO PAIN LEVEL 7-10; Start 07/21/18 at 11:00 Nifedipine (Procardia) 20 mg TID NGT Last administered on 07/30/18 08:55; Admin Dose 20 MG; Start 07/23/18 at 14:30 Lorazepam (Ativan) 1 mg Q4H PRN GTB AGITATION; Start 07/24/18 at 11:00 Insulin Aspart (Novolog Insulin Pen) NOVOLOG *MILD* ALGORI... Q4 SC Last administered on 07/30/18 01:13; Admin Dose 1 UNIT; Start 07/26/18 at 17:00 Miscellaneous Information 1 ea NOTE XX ; Start 07/26/18 at 14:30 Glucose (Glutose) 15 gm Q15M PRN PO DECREASED GLUCOSE; Start 07/26/18 at 14:30 Glucose (Glutose) 22.5 gm Q15M PRN PO DECREASED GLUCOSE; Start 07/26/18 at 14:30 Dextrose (D50w Syringe) 25 ml Q15M PRN IV DECREASED GLUCOSE; Start 07/26/18 at 14:30 Dextrose (D50w Syringe) 50 ml Q15M PRN IV DECREASED GLUCOSE; Start 07/26/18 at 14:30 Glucagon (Glucagen) 1 mg Q15M PRN IM DECREASED GLUCOSE; Start 07/26/18 at 14: 30 Glucose (Glutose) 15 gm Q15M PRN BUCCAL DECREASED GLUCOSE; Start 07/26/18 at 14:30 Famotidine (Pepcid Iv) 20 mg DAILY IV Last administered on 07/30/18at 08:55; Admin Dose 20 MG; Start 07/28/18 at 09:00 Cefepime HCl 50 ml @ 100 mls/hr Q24H IVPB Last administered on 07/29/18at 21:21; Admin Dose 100 MLS/HR; Start 07/28/18 at 21:00 Heparin Sodium (Porcine) (Heparin (1000 Units/ml)) 3,000 unit AFTER DIALYSIS CATHETER Last administered on 07/29/18at 12:27; Admin Dose 3,000 UNIT; Start 07/29/18 at 09:30 Assessment/Plan Chief Complaint/Hosp Course Assessment 1. Acute hypoxemic respiratory failure ARDS versus pulmonary edema 2. Encephalopathy toxic metabolic 3. Anemia questionable GI bleed 4. Progressive renal failure now pending hemodialysis 5. Dysphagia Plan 1. Continue mechanical ventilation, not stable for weaning will likely need tracheostomy if family wish to continue current level of care. 2. Emergent hemodialysis for volume removal as tolerated 3. Decrease sedation as tolerated 4. Tube feeding as tolerated cc 40 mins. Overall prognosis very poor consider family conference regarding goals of care SPENSER RICO MD, [facility] Jul 30, 2018 09:45
--- NOTE | 2018-07-30 12:18 | CONS ---
Date/Time of Note Date/Time of Note DATE: 07/30/18 TIME: 12:18 Assessment/Plan Assessment/Plan Assessment/Plan 1. Acute renal failure due to ATN from sepsis + prerenal azotemia 2. Sepsis due to PNA 3. Acute Hypoxemic respiratory failure due to PNA - Intubated on ventilator 4. H/o CAD s/p previous stent placement 5. h/o Pacemaker placement 6. H/o HTN 7. H/o HL 8. H/o Chronic back pain, Prostate CA 9. Hypernatremia - now resolved 10. Hyperuricemia, on allopurinol Plan:- started on HD on 07/28/18, s/p HD x 2 days in a row, FiO2 down to 40%, BP stable, paln for HD today for 3 hr then we will switch him to HD intermittently 3 times a week - he will be on MWF schedule HIV, Hepatitis panel negative Pulmonary to manage ventilator- pt remains intubated on ventilator - After pt weaned off ventilator we will decide about [facility] HD and permacath placement will follow up Result Diagram: 07/30/18 0430 07/30/18 0430 Results 24hrs Laboratory Tests Test 07/29/18 13:10 07/29/18 17:04 07/29/18 21:25 07/30/18 01:09 Bedside Glucose 165 175 142 142 Test 07/30/18 04:30 07/30/18 05:09 07/30/18 08:54 White Blood Count 11.3 H Red Blood Count 2.26 L Hemoglobin 7.2 L Hematocrit 21.1 L Mean Corpuscular Volume 93.4 Mean Corpuscular 31.9 Hemoglobin Mean Corpuscular 34.1 Hemoglobin Concent Red Cell Distribution 14.0 Width Platelet Count 147 Mean Platelet Volume 12.6 H Immature Granulocytes % 2.000 H Neutrophils % 86.5 H Lymphocytes % 4.5 L Monocytes % 5.4 Eosinophils % 1.5 Basophils % 0.1 Nucleated Red Blood 0.0 Cells % Immature Granulocytes # 0.230 H Neutrophils # 9.8 H Lymphocytes # 0.5 L Monocytes # 0.6 Eosinophils # 0.2 Basophils # 0.0 Nucleated Red Blood 0.0 Cells # Sodium Level 138 Potassium Level 4.2 Chloride Level 99 Carbon Dioxide Level 26 Anion Gap 13 Blood Urea Nitrogen 85 H Creatinine 3.70 H Est Glomerular Filtrat Rate mL/min Glucose Level 125 Calcium Level 8.6 Phosphorus Level 6.2 H Magnesium Level 2.9 H Bedside Glucose 134 143 Consultation Date/Type/Reason Admit Date/Time Jul 18, 2018 at 16:57 Initial Consult Date 07/19/18 Type of Consult NEPHROLOGY Requesting Provider: HARLEY STARR 24 HR Interval Summary Free Text/Dictation remains intubated, s/p Hd 2 days in a row, BP stable Exam/Review of Systems Vital Signs Vitals Vital Signs Date Temp Pulse Resp B/P (MAP) Pulse Ox O2 O2 Flow FiO2 Time Delivery Rate 07/30/18 60 12:00 07/30/18 15 132/59 99 Mechanical 11:00 (83) Ventilator 07/30/18 30 08:00 07/30/18 99.0 08:00 Intake and Output 07/29/18 07/29/18 07/30/18 1414:59 22:59 06:59 IntakeIntake Total 803.459 ml 391.096 ml 371.096 ml OutputOutput Total 2711 ml 40 ml 20 ml BalanceBalance -1907.541 ml 351.096 ml 351.096 ml Exam Constitutional: non-verbal, other (Intubated on ventilator ) Eyes: other (ET tube in place ), NG tube place Respiratory: diminished breath sounds, other (Bilateral Coarse BS+) Cardiovascular: regular rate and rhythm Gastrointestinal: soft, non-tender Musculoskeletal: muscle weakness, swelling, other (Bilateral UE edema ) Neurological: other (Intubated, sedated on ventilator ) Medications Medications Current Medications IV Flush (NS 3 ml) 3 ml PER PROTOCOL IV ; Start 07/18/18 at 17:30 Ondansetron HCl (Zofran Inj) 4 mg Q6H PRN IV NAUSEA AND/OR VOMITING; Start 07/18/18 at 17:30 Acetaminophen (Tylenol Tab) 650 mg Q6H PRN PO PAIN LEVEL 1-3 OR FEVER; Start 07/18/18 at 17:30 Enoxaparin Sodium (Lovenox) 30 mg DAILY SC Last administered on 07/30/18at 08:57; Admin Dose 30 MG; Start 07/19/18 at 09:00 Atorvastatin Calcium (Lipitor) 40 mg QHS PO Last administered on 07/29/18at 21:22; Admin Dose 40 MG; Start 07/18/18 at 21:00 Baclofen (Lioresal) 10 mg BID PO Last administered on 07/30/18 08:55; Admin Dose 10 MG; Start 07/18/18 at 21:00 Docusate Sodium (Colace) 100 mg BID PRN PO CONSTIPATION; Start 07/18/18 at 17:30 Donepezil HCl (Aricept) 5 mg DAILY PO Last administered on 07/30/18 08:55; Admin Dose 5 MG; Start 07/19/18 at 09:00 Doxazosin Mesylate (Cardura) 4 mg HS PO Last administered on 07/29/18 21:22; Admin Dose 4 MG; Start 07/18/18 at 21:00 Finasteride (Proscar) 5 mg DAILY PO Last administered on 07/30/18 08:55; Admin Dose 5 MG; Start 07/19/18 at 09:00 Fluticasone Propionate (Flonase 0.05% Nasal) 1 spray DAILY NASAL Last adminis tered on 07/25/18at 08:12; Admin Dose 1 SPRAY; Start 07/19/18 at 09:00 Haloperidol (Haldol) 5 mg Q2H PRN IM AGITATION Last administered on 07/19/18at 02:37; Admin Dose 5 MG; Start 07/18/18 at 23:30 Pregabalin (Lyrica) 50 mg DAILY PO Last administered on 07/30/18 08:55; Admin Dose 50 MG; Start 07/19/18 at 13:00 Propofol 100 ml @ 1.909 mls/ hr Q12H IV Last administered on 07/29/18 21:42; Admin Dose 7.637 MLS/HR; Start 07/19/18 at 14:00; Status Hold Allopurinol (Zyloprim) 100 mg DAILY PO Last administered on 07/30/18 08:55; Admin Dose 100 MG; Start 07/21/18 at 09:00 Docusate Sodium (Colace Liquid Cup) 100 mg BID GTB Last administered on 07/30/18 08:55; Admin Dose 100 MG; Start 07/20/18 at 21:00 Fentanyl 100 ml @ 2.5 mls/hr TITRATE IV Last administered on 07/26/18at 04:53; Admin Dose 5 MLS/HR; Start 07/21/18 at 08:00; Status Hold Morphine Sulfate (morphine) 6 mg Q4H PRN PO PAIN LEVEL 7-10; Start 07/21/18 at 11:00 Nifedipine (Procardia) 20 mg TID NGT Last administered on 07/30/18 08:55; Admin Dose 20 MG; Start 07/23/18 at 14:30 Lorazepam (Ativan) 1 mg Q4H PRN GTB AGITATION; Start 07/24/18 at 11:00 Insulin Aspart (Novolog Insulin Pen) NOVOLOG *MILD* ALGORI... Q4 SC Last administered on 07/30/18 01:13; Admin Dose 1 UNIT; Start 07/26/18 at 17:00 Miscellaneous Information 1 ea NOTE XX ; Start 07/26/18 at 14:30 Glucose (Glutose) 15 gm Q15M PRN PO DECREASED GLUCOSE; Start 07/26/18 at 14:30 Glucose (Glutose) 22.5 gm Q15M PRN PO DECREASED GLUCOSE; Start 07/26/18 at 14:30 Dextrose (D50w Syringe) 25 ml Q15M PRN IV DECREASED GLUCOSE; Start 07/26/18 at 14:30 Dextrose (D50w Syringe) 50 ml Q15M PRN IV DECREASED GLUCOSE; Start 07/26/18 at 14:30 Glucagon (Glucagen) 1 mg Q15M PRN IM DECREASED GLUCOSE; Start 07/26/18 at 14:30 Glucose (Glutose) 15 gm Q15M PRN BUCCAL DECREASED GLUCOSE; Start 07/26/18 at 14:30 Famotidine (Pepcid Iv) 20 mg DAILY IV Last administered on 07/30/18 08:55; Admin Dose 20 MG; Start 07/28/18 at 09:00 Cefepime HCl 50 ml @ 100 mls/hr Q24H IVPB Last administered on 07/29/18 21:21; Admin Dose 100 MLS/HR; Start 07/28/18 at 21:00 Heparin Sodium (Porcine) (Heparin (1000 Units/ml)) 3,000 unit AFTER DIALYSIS CATHETER Last administered on 07/29/18 12:27; Admin Dose 3,000 UNIT; Start 07/29/18 at 09:30 FELICIANO RAMIREZ MD Jul 30, 2018 12:18
--- NOTE | 2018-07-30 12:50 | CONS ---
Assessment/Plan Assessment/Plan Hospital Course 83 M who is admitted to the [facility] ICU for management of acute respiratory failure. CXR revealed bilateral pneumonias.. Neurology is consulted to evaluation ams.. Of note, he remains in severe MYKE requiring HD..which is a likely contributor.. Also notably, he was initially on versed, which was ultimately transitioned to propofol... Most clinically consistent w/ an acute and severe toxic-metabolic encephalo nj.. Intracranial hemorrhage is worth excluding in this clinical context. Seizure is unlikely.. P: Await head CT Await EEG Add ammonia level Limit sedating medications where possible Other medical management and supportive care per primary Will follow clinically Result Diagram: 07/30/18 0430 07/30/18 0430 Results 24hrs Laboratory Tests Test 07/29/18 13:10 07/29/18 17:04 07/29/18 21:25 07/30/18 01:09 Bedside Glucose 165 175 142 142 Test 07/30/18 04:30 07/30/18 05:09 07/30/18 08:54 White Blood Count 11.3 H Red Blood Count 2.26 L Hemoglobin 7.2 L Hematocrit 21.1 L Mean Corpuscular Volume 93.4 Mean Corpuscular 31.9 Hemoglobin Mean Corpuscular 34.1 Hemoglobin Concent Red Cell Distribution 14.0 Width Platelet Count 147 Mean Platelet Volume 12.6 H Immature Granulocytes % 2.000 H Neutrophils % 86.5 H Lymphocytes % 4.5 L Monocytes % 5.4 Eosinophils % 1.5 Basophils % 0.1 Nucleated Red Blood 0.0 Cells % Immature Granulocytes # 0.230 H Neutrophils # 9.8 H Lymphocytes # 0.5 L Monocytes # 0.6 Eosinophils # 0.2 Basophils # 0.0 Nucleated Red Blood 0.0 Cells # Sodium Level 138 Potassium Level 4.2 Chloride Level 99 Carbon Dioxide Level 26 Anion Gap 13 Blood Urea Nitrogen 85 H Creatinine 3.70 H Est Glomerular Filtrat Rate mL/min Glucose Level 125 Calcium Level 8.6 Phosphorus Level 6.2 H Magnesium Level 2.9 H Bedside Glucose 134 143 Consultation Date/Type/Reason Admit Date/Time Jul 18, 2018 at 16:57 Type of Consult Neurology Requesting Provider: HARLEY STARR Date/Time of Note DATE: 07/30/18 TIME: 12:39 Hx of Present Illness Patient is critically ill...unable to contribute a Hx.. It is elsewhere noted: Patient with history of hypertension and coronary artery disease was sent from his primary physician to the emergency with shortness of breath. Patient was found to have bilateral pneumonia and respiratory distress. Patient was initially placed on bipap and then he decompensated and had to be intubated later on. Patient is admitted for further treatment of pneumonia. Subjective hx not possible: pt critical Exam/Review of Systems Vital Signs Vitals Vital Signs Date Temp Pulse Resp B/P (MAP) Pulse Ox O2 O2 Flow FiO2 Time Delivery Rate 07/30/18 60 12:00 07/30/18 30 12:00 07/30/18 15 132/59 99 Mechanical 11:00 (83) Ventilator 07/30/18 99.0 08:00 Intake and Output 07/29/18 07/29/18 07/30/18 1515:00 23:00 07:00 IntakeIntake Total 811.096 ml 391.096 ml 343.696 ml OutputOutput Total 2706 ml 40 ml 20 ml BalanceBalance -1894.904 ml 351.096 ml 323.696 ml Exam PE: Gen Appearance: No Apparent Distress HEENT: Intubated Cardiovascular: Regular rate Abdomen: Soft Extremities: Dry NE: The patient was comatose. Cranial nerve examination was limited by mental status. Pupils were equal and sluggishly reactive to light. There was no afferent pupillary defect. Funduscopic examination was limited. Face was grossly symmetric, w/ present corneal and cough reflexes. Tone was normal. Muscle bulk was normal. I did not see fasciculations. The patient withdrew to noxious stimulation x 4. Coordination and gait testing was limited by mental status. Arm and leg reflexes were symmetric. Chacon's sign was absent. Plantar responses were mute. Medications Medications Current Medications IV Flush (NS 3 ml) 3 ml PER PROTOCOL IV ; Start 07/18/18 at 17:30 Ondansetron HCl (Zofran Inj) 4 mg Q6H PRN IV NAUSEA AND/OR VOMITING; Start 07/18/18 at 17:30 Acetaminophen (Tylenol Tab) 650 mg Q6H PRN PO PAIN LEVEL 1-3 OR FEVER; Start 07/18/18 at 17:30 Enoxaparin Sodium (Lovenox) 30 mg DAILY SC Last administered on 07/30/18 08:57; Admin Dose 30 MG; Start 07/19/18 at 09:00 Atorvastatin Calcium (Lipitor) 40 mg QHS PO Last administered on 07/29/18 21 :22; Admin Dose 40 MG; Start 07/18/18 at 21:00 Baclofen (Lioresal) 10 mg BID PO Last administered on 07/30/18 08:55; Admin Dose 10 MG; Start 07/18/18 at 21:00 Docusate Sodium (Colace) 100 mg BID PRN PO CONSTIPATION; Start 07/18/18 at 17:30 Donepezil HCl (Aricept) 5 mg DAILY PO Last administered on 07/30/18 08:55; Admin Dose 5 MG; Start 07/19/18 at 09:00 Doxazosin Mesylate (Cardura) 4 mg HS PO Last administered on 07/29/18 21:22; Admin Dose 4 MG; Start 07/18/18 at 21:00 Finasteride (Proscar) 5 mg DAILY PO Last administered on 07/30/18 08:55; Admin Dose 5 MG; Start 07/19/18 at 09:00 Fluticasone Propionate (Flonase 0.05% Nasal) 1 spray DAILY NASAL Last administered on 07/25/18at 08:12; Admin Dose 1 SPRAY; Start 07/19/18 at 09:00 Haloperidol (Haldol) 5 mg Q2H PRN IM AGITATION Last administered on 07/19/18at 02:37; Admin Dose 5 MG; Start 07/18/18 at 23:30 Pregabalin (Lyrica) 50 mg DAILY PO Last administered on 07/30/18 08:55; Admin Dose 50 MG; Start 07/19/18 at 13:00 Propofol 100 ml @ 1.909 mls/ hr Q12H IV Last administered on 07/29/18 21:42; Admin Dose 7.637 MLS/HR; Start 07/19/18 at 14:00; Status Hold Allopurinol (Zyloprim) 100 mg DAILY PO Last administered on 07/30/18 08:55; Admin Dose 100 MG; Start 07/21/18 at 09:00 Docusate Sodium (Colace Liquid Cup) 100 mg BID GTB Last administered on 07/30/18 08:55; Admin Dose 100 MG; Start 07/20/18 at 21:00 Fentanyl 100 ml @ 2.5 mls/hr TITRATE IV Last administered on 07/26/18 04:53; Admin Dose 5 MLS/HR; Start 07/21/18 at 08:00; Status Hold Morphine Sulfate (morphine) 6 mg Q4H PRN PO PAIN LEVEL 7-10; Start 07/21/18 at 11:00 Nifedipine (Procardia) 20 mg TID NGT Last administered on 07/30/18 08:55; Admin Dose 20 MG; Start 07/23/18 at 14:30 Lorazepam (Ativan) 1 mg Q4H PRN GTB AGITATION; Start 07/24/18 at 11:00 Insulin Aspart (Novolog Insulin Pen) NOVOLOG *MILD* ALGORI... Q4 SC Last administered on 07/30/18 01:13; Admin Dose 1 UNIT; Start 07/26/18 at 17:00 Miscellaneous Information 1 ea NOTE XX ; Start 07/26/18 at 14:30 Glucose (Glutose) 15 gm Q15M PRN PO DECREASED GLUCOSE; Start 07/26/18 at 14:30 Glucose (Glutose) 22.5 gm Q15M PRN PO DECREASED GLUCOSE; Start 07/26/18 at 14:30 Dextrose (D50w Syringe) 25 ml Q15M PRN IV DECREASED GLUCOSE; Start 07/26/18 at 14:30 Dextrose (D50w Syringe) 50 ml Q15M PRN IV DECREASED GLUCOSE; Start 07/26/18 at 14:30 Glucagon (Glucagen) 1 mg Q15M PRN IM DECREASED GLUCOSE; Start 07/26/18 at 14:30 Glucose (Glutose) 15 gm Q15M PRN BUCCAL DECREASED GLUCOSE; Start 07/26/18 at 14:30 Famotidine (Pepcid Iv) 20 mg DAILY IV Last administered on 07/30/18 08:55; Admin Dose 20 MG; Start 07/28/18 at 09:00 Cefepime HCl 50 ml @ 100 mls/hr Q24H IVPB Last administered on 07/29/18 21:21; Admin Dose 100 MLS/HR; Start 07/28/18 at 21:00 Heparin Sodium (Porcine) (Heparin (1000 Units/ml)) 3,000 unit AFTER DIALYSIS CATHETER Last administered on 07/29/18 12:27; Admin Dose 3,000 UNIT; Start 07/29/18 at 09:30 Past Medical History Medical History: coronary artery disease, hypertension Medications Current Medications IV Flush (NS 3 ml) 3 ml PER PROTOCOL IV ; Start 07/18/18 at 17:30 Ondansetron HCl (Zofran Inj) 4 mg Q6H PRN IV NAUSEA AND/OR VOMITING; Start 07/18/18 at 17:30 Acetaminophen (Tylenol Tab) 650 mg Q6H PRN PO PAIN LEVEL 1-3 OR FEVER; Start 07/18/18 at 17:30 Enoxaparin Sodium (Lovenox) 30 mg DAILY SC Last administered on 07/30/18 08:57; Admin Dose 30 MG; Start 07/19/18 at 09:00 Atorvastatin Calcium (Lipitor) 40 mg QHS PO Last administered on 07/29/18 21:22; Admin Dose 40 MG; Start 07/18/18 at 21:00 Baclofen (Lioresal) 10 mg BID PO Last administered on 07/30/18 08:55; Admin Dose 10 MG; Start 07/18/18 at 21:00 Docusate Sodium (Colace) 100 mg BID PRN PO CONSTIPATION; Start 07/18/18 at 17:30 Donepezil HCl (Aricept) 5 mg DAILY PO Last administered on 07/30/18 08:55; Admin Dose 5 MG; Start 07/19/18 at 09:00 Doxazosin Mesylate (Cardura) 4 mg HS PO Last administered on 07/29/18 21:22; Admin Dose 4 MG; Start 07/18/18 at 21:00 Finasteride (Proscar) 5 mg DAILY PO Last administered on 07/30/18 08:55; Admin Dose 5 MG; Start 07/19/18 at 09:00 Fluticasone Propionate (Flonase 0.05% Nasal) 1 spray DAILY NASAL Last administered on 07/25/18at 08:12; Admin Dose 1 SPRAY; Start 07/19/18 at 09:00 Haloperidol (Haldol) 5 mg Q2H PRN IM AGITATION Last administered on 07/19/18at 02:37; Admin Dose 5 MG; Start 07/18/18 at 23:30 Pregabalin (Lyrica) 50 mg DAILY PO Last administered on 07/30/18 08:55; Admin Dose 50 MG; Start 07/19/18 at 13:00 Propofol 100 ml @ 1.909 mls/ hr Q12H IV Last administered on 07/29/18 21:42; Admin Dose 7.637 MLS/HR; Start 07/19/18 at 14:00; Status Hold Allopurinol (Zyloprim) 100 mg DAILY PO Last administered on 07/30/18 08:55; Admin Dose 100 MG; Start 07/21/18 at 09:00 Docusate Sodium (Colace Liquid Cup) 100 mg BID GTB Last administered on 07/30/18 08:55; Admin Dose 100 MG; Start 07/20/18 at 21:00 Fentanyl 100 ml @ 2.5 mls/hr TITRATE IV Last administered on 07/26/18at 04:53; Admin Dose 5 MLS/HR; Start 07/21/18 at 08:00; Status Hold Morphine Sulfate (morphine) 6 mg Q4H PRN PO PAIN LEVEL 7-10; Start 07/21/18 at 11:00 Nifedipine (Procardia) 20 mg TID NGT Last administered on 07/30/18 08:55; Admin Dose 20 MG; Start 07/23/18 at 14:30 Lorazepam (Ativan) 1 mg Q4H PRN GTB AGITATION; Start 07/24/18 at 11:00 Insulin Aspart (Novolog Insulin Pen) NOVOLOG *MILD* ALGORI... Q4 SC Last administered on 07/30/18 01:13; Admin Dose 1 UNIT; Start 07/26/18 at 17:00 Miscellaneous Information 1 ea NOTE XX ; Start 07/26/18 at 14:30 Glucose (Glutose) 15 gm Q15M PRN PO DECREASED GLUCOSE; Start 07/26/18 at 14:30 Glucose (Glutose) 22.5 gm Q15M PRN PO DECREASED GLUCOSE; Start 07/26/18 at 14:30 Dextrose (D50w Syringe) 25 ml Q15M PRN IV DECREASED GLUCOSE; Start 07/26/18 at 14:30 Dextrose (D50w Syringe) 50 ml Q15M PRN IV DECREASED GLUCOSE; Start 07/26/18 at 14:30 Glucagon (Glucagen) 1 mg Q15M PRN IM DECREASED GLUCOSE; Start 07/26/18 at 14:30 Glucose (Glutose) 15 gm Q15M PRN BUCCAL DECREASED GLUCOSE; Start 07/26/18 at 14:30 Famotidine (Pepcid Iv) 20 mg DAILY IV Last administered on 07/30/18at 08:55; Admin Dose 20 MG; Start 07/28/18 at 09:00 Cefepime HCl 50 ml @ 100 mls/hr Q24H IVPB Last administered on 07/29/18at 21:21; Admin Dose 100 MLS/HR; Start 07/28/18 at 21:00 Heparin Sodium (Porcine) (Heparin (1000 Units/ml)) 3,000 unit AFTER DIALYSIS CATHETER Last administered on 07/29/18at 12:27; Admin Dose 3,000 UNIT; Start 07/29/18 at 09:30 Allergies: Coded Allergies: No Known Allergy (Unverified , 07/18/18) Past Surgical History Past Surgical Hx: other (Cardiac Stent placement , Pacemaker placement ) Social History Alcohol Use: none Smoking Status: Never smoker Drug Use: none JAMMIE AMEZCUA Jul 30, 2018 12:49
[2018-07-30] MEDS ORDERED: SOD CHLORIDE 0.9% 250 ML IV* ONE ×2 (14:42)
--- NOTE | 2018-07-30 14:42 | PN ---
Date/Time of Note Date/Time of Note DATE: 07/30/18 TIME: 14:30 Assessment/Plan VTE Prophylaxis Risk score (from Ns)>0 risk: 10 SCD applied (from Ns): Yes Pharmacological prophylaxis: LMWH Lines/Catheters IV Catheter Type (from Nrs): PICC Line Central line still needed: Yes Urinary Cath still in place: Yes Reason Cath still needed: urinary retention Assessment/Plan Hospital Course Patient continues on ventilatory support, unresponsive, off propofol, pending CT of the brain, patient is status post hemodialysis today, continue ICU care Assessment/Plan -Acute hypoxemic respiratory failure, ventilatory support, Dr. Mendoza is following in pulmonology consultation. -Possible pneumonia, continue antibiotics. Dr. Rebolledo is asked to see patient in infection disease consultation. -Acute renal failure failure, started on hemodialysis. Dr. Mari is following and nephrology consultation -Encephalopathy. Dr. Herndon is following in neurology consultation. -Anemia, stool for OB, transfused as needed -Coronary artery disease history of stent placement. Dr. Lassiter is asked to see patient in cardiology consultation. -PPM -History of prostate CA Further recommendations based on clinical course. Plan of care discussed with Dr. Brown. Result Diagram: 07/30/18 0430 07/30/18 0430 Results 24hrs Laboratory Tests Test 07/29/18 17:04 07/29/18 21:25 07/30/18 01:09 07/30/18 04:30 Bedside Glucose 175 142 142 White Blood Count 11.3 H Red Blood Count 2.26 L Hemoglobin 7.2 L Hematocrit 21.1 L Mean Corpuscular Volume 93.4 Mean Corpuscular 31.9 Hemoglobin Mean Corpuscular 34.1 Hemoglobin Concent Red Cell Distribution 14.0 Width Platelet Count 147 Mean Platelet Volume 12.6 H Immature Granulocytes % 2.000 H Neutrophils % 86.5 H Lymphocytes % 4.5 L Monocytes % 5.4 Eosinophils % 1.5 Basophils % 0.1 Nucleated Red Blood 0.0 Cells % Immature Granulocytes # 0.230 H Neutrophils # 9.8 H Lymphocytes # 0.5 L Monocytes # 0.6 Eosinophils # 0.2 Basophils # 0.0 Nucleated Red Blood 0.0 Cells # Sodium Level 138 Potassium Level 4.2 Chloride Level 99 Carbon Dioxide Level 26 Anion Gap 13 Blood Urea Nitrogen 85 H Creatinine 3.70 H Est Glomerular Filtrat Rate mL/min Glucose Level 125 Calcium Level 8.6 Phosphorus Level 6.2 H Magnesium Level 2.9 H Test 07/30/18 05:09 07/30/18 08:54 07/30/18 13:48 Bedside Glucose 134 143 151 Exam/Review of Systems Vital Signs Vitals Vital Signs Date Temp Pulse Resp B/P (MAP) Pulse Ox O2 O2 Flow FiO2 Time Delivery Rate 07/30/18 60 12:00 07/30/18 30 12:00 07/30/18 15 132/59 99 Mechanical 11:00 (83) Ventilator 07/30/18 99.0 08:00 Intake and Output 07/29/18 07/29/18 07/30/18 1515:00 23:00 07:00 IntakeIntake Total 811.096 ml 391.096 ml 343.696 ml OutputOutput Total 2706 ml 40 ml 20 ml BalanceBalance -1894.904 ml 351.096 ml 323.696 ml Exam Constitutional: non-verbal, frail Head: normocephalic Respiratory: diminished breath sounds Cardiovascular: regular rate and rhythm, other (PPM) Gastrointestinal: soft, non-tender Genitourinary - Male: other (Owens) Musculoskeletal: nl extremities to inspection Extremities: normal pulses Neurological: unresponsive Skin: nl turgor Additional Comments Right humeral Vinnie catheter Medications Medications Current Medications IV Flush (NS 3 ml) 3 ml PER PROTOCOL IV ; Start 07/18/18 at 17:30 Ondansetron HCl (Zofran Inj) 4 mg Q6H PRN IV NAUSEA AND/OR VOMITING; Start 07/18/18 at 17:30 Acetaminophen (Tylenol Tab) 650 mg Q6H PRN PO PAIN LEVEL 1-3 OR FEVER; Start 07/18/18 at 17:30 Enoxaparin Sodium (Lovenox) 30 mg DAILY SC Last administered on 07/30/18 08:57; Admin Dose 30 MG; Start 07/19/18 at 09:00 Atorvastatin Calcium (Lipitor) 40 mg QHS PO Last administered on 07/29/18 21:22; Admin Dose 40 MG; Start 07/18/18 at 21:00 Baclofen (Lioresal) 10 mg BID PO Last administered on 07/30/18 08:55; Admin Dose 10 MG; Start 07/18/18 at 21:00 Docusate Sodium (Colace) 100 mg BID PRN PO CONSTIPATION; Start 07/18/18 at 17:30 Donepezil HCl (Aricept) 5 mg DAILY PO Last administered on 07/30/18 08:55; Admin Dose 5 MG; Start 07/19/18 at 09:00 Doxazosin Mesylate (Cardura) 4 mg HS PO Last administered on 07/29/18 21:22; Admin Dose 4 MG; Start 07/18/18 at 21:00 Finasteride (Proscar) 5 mg DAILY PO Last administered on 07/30/18 08:55; Admin Dose 5 MG; Start 07/19/18 at 09:00 Fluticasone Propionate (Flonase 0.05% Nasal) 1 spray DAILY NASAL Last administered on 07/25/18at 08:12; Admin Dose 1 SPRAY; Start 07/19/18 at 09:00 Haloperidol (Haldol) 5 mg Q2H PRN IM AGITATION Last administered on 07/19/18at 02:37; Admin Dose 5 MG; Start 07/18/18 at 23:30 Pregabalin (Lyrica) 50 mg DAILY PO Last administered on 07/30/18 08:55; Admin Dose 50 MG; Start 07/19/18 at 13:00 Propofol 100 ml @ 1.909 mls/ hr Q12H IV Last administered on 07/29/18 21:42; Admin Dose 7.637 MLS/HR; Start 07/19/18 at 14:00; Status Hold Allopurinol (Zyloprim) 100 mg DAILY PO Last administered on 07/30/18 08:55; Admin Dose 100 MG; Start 07/21/18 at 09:00 Docusate Sodium (Colace Liquid Cup) 100 mg BID GTB Last administered on 07/30/18 t 08:55; Admin Dose 100 MG; Start 07/20/18 at 21:00 Fentanyl 100 ml @ 2.5 mls/hr TITRATE IV Last administered on 07/26/18at 04:53; Admin Dose 5 MLS/HR; Start 07/21/18 at 08:00; Status Hold Morphine Sulfate (morphine) 6 mg Q4H PRN PO PAIN LEVEL 7-10; Start 07/21/18 at 11:00 Nifedipine (Procardia) 20 mg TID NGT Last administered on 07/30/18 13:47; Admin Dose 20 MG; Start 07/23/18 at 14:30 Lorazepam (Ativan) 1 mg Q4H PRN GTB AGITATION; Start 07/24/18 at 11:00 Insulin Aspart (Novolog Insulin Pen) NOVOLOG *MILD* ALGORI... Q4 SC Last administered on 07/30/18 13:50; Admin Dose 1 UNIT; Start 07/26/18 at 17:00 Miscellaneous Information 1 ea NOTE XX ; Start 07/26/18 at 14:30 Glucose (Glutose) 15 gm Q15M PRN PO DECREASED GLUCOSE; Start 07/26/18 at 14:30 Glucose (Glutose) 22.5 gm Q15M PRN PO DECREASED GLUCOSE; Start 07/26/18 at 14:30 Dextrose (D50w Syringe) 25 ml Q15M PRN IV DECREASED GLUCOSE; Start 07/26/18 at 14:30 Dextrose (D50w Syringe) 50 ml Q15M PRN IV DECREASED GLUCOSE; Start 07/26/18 at 14:30 Glucagon (Glucagen) 1 mg Q15M PRN IM DECREASED GLUCOSE; Start 07/26/18 at 14:30 Glucose (Glutose) 15 gm Q15M PRN BUCCAL DECREASED GLUCOSE; Start 07/26/18 at 14:30 Famotidine (Pepcid Iv) 20 mg DAILY IV Last administered on 07/30/18 08:55; Admin Dose 20 MG; Start 07/28/18 at 09:00 Cefepime HCl 50 ml @ 100 mls/hr Q24H IVPB Last administered on 07/29/18 21:21; Admin Dose 100 MLS/HR; Start 07/28/18 at 21:00 Heparin Sodium (Porcine) (Heparin (1000 Units/ml)) 3,000 unit AFTER DIALYSIS CATHETER Last administered on 07/29/18 12:27; Admin Dose 3,000 UNIT; Start 07/29/18 at 09:30 RADHA FISHER Jul 30, 2018 14:40
--- NOTE | 2018-07-30 18:06 | PN ---
Date/Time of Note Date/Time of Note DATE: 07/30/18 TIME: 18:05 Assessment/Plan Lines/Catheters IV Catheter Type (from Nrsg): PICC Line Owens in Place (from Nrsg): Yes Assessment/Plan Assessment/Plan SP dialysis cath placement Will continue Dialysis Subjective 24 Hr Interval Summary Constitutional: improved Pain Control: mild Exam/Review of Systems Vital Signs Vitals Vital Signs Date Temp Pulse Resp B/P (MAP) Pulse Ox O2 O2 Flow FiO2 Time Delivery Rate 07/30/18 60 26 132/57 100 Mechanical 17:00 (82) Ventilator 07/30/18 99.0 16:00 07/30/18 30 12:00 Intake and Output 07/29/18 07/29/18 07/30/18 1515:00 23:00 07:00 IntakeIntake Total 811.096 ml 391.096 ml 343.696 ml OutputOutput Total 2706 ml 40 ml 20 ml BalanceBalance -1894.904 ml 351.096 ml 323.696 ml Exam Eyes: nl conjunctiva, EOMI, nl lids, nl sclera ENMT: nl external ears & nose, nl lips & teeth, nl nasal mucosa & septum, mucosa pink and moist Neck: supple, non-tender Respiratory: clear to auscultation, normal air movement Cardiovascular: regular rate and rhythm, nl pulses Gastrointestinal: soft, nl liver, spleen, non-tender Results Result Diagram: 07/30/18 0430 07/30/18 0430 OPAL RODRIGUEZ MD Jul 30, 2018 18:06
--- NOTE | 2018-07-30 18:14 | CONS ---
DATE OF ADMISSION: 07/18/2018 DATE OF CONSULTATION: 07/30/2018 TYPE OF CONSULTATION: Infectious disease. REASON FOR CONSULTATION: Antibiotic management. HISTORY OF PRESENT ILLNESS: Edgar Salinas is an unfortunate 83-year-old Khmer-Russian male with num erous problems who comes in with shortness of breath and is being seen for antibiotic management. Th e patient was seen by Dr. Starr, who was concerned that he had pneumonia. He had chest pain a few day s prior to admission as well as cough. His past problems include: 1. Coronary artery disease. 2. Hypertension. 3. Hyperlipidemia. 4. History of [place]. 5. Pacemaker placement. 6. Stent placement. 7. Right foot toe fractures. 8. Frequent falls. The patient has had a very long course in the hospital. The patient was initially on bypass, decompe nsated and had to be intubated on the 07/19/2018. He has been seen by pulmonary. Chest x-ray was re viewed and showed severe bilateral pneumonia. He was intubated. He also has renal insufficiency. H e was seen by Dr. Vinh Mari. Acute renal failure due to ATN from sepsis and prerenal azotemia. BUN and creatinine is 67/1.47. Currently, the patient has an ET tube, an OG tube, a Owens catheter a nd a PICC line. The patient has encephalopathy and is seen in neurology by Dr. Herndon. BUN and creat inine on 07/30/2018, which is today was 85/3.7, white count 11.3. The patient was also on propofol. He is status post hemodialysis today. He has acute hypoxemic respiratory failure, ventilator depend ent, seen by Dr. Mendoza. He has unchanged diffuse bilateral airspace opacities most significant inv olving the bilateral upper left lobe representing pulmonary edema and/or pneumonia, small bilateral p leural effusions, cardiomegaly. The patient is currently on cefepime. Microbiology: Blood cultures so far are negative. His white count today is 11.3, H and H of 7.2 and 21.1, platelet count 147,000 . BUN and creatinine is 85/3.70. PAST MEDICAL HISTORY: Operations as outlined. FAMILY HISTORY: Noncontributory. SOCIAL HISTORY: He does not smoke, drink or abuse drugs. ALLERGIES: NONE TO PENICILLIN, SULFA OR FOODS. MEDICATIONS: Per chart. REVIEW OF SYSTEMS: As per HPI. PHYSICAL EXAMINATION: GENERAL: The patient is an elderly appearing male who is intubated on a respirator, nonverbal and somnolent. His family member, I believe, his is at his bedside. He has an ET tube, OG tube , Owens catheter, PICC line and now line started for dialysis. SKIN: Without generalized rash. HEENT: Within normal limits. NECK: Supple. LYMPH NODES: None palpable. CHEST: Decreased breath sounds at the bases. HEART: Without murmur or gallop. ABDOMEN: Soft, nontender, without organosplenomegaly or masses. EXTREMITIES: Without cyanosis, clubbing or edema. RECTAL AND GENITAL: Deferred. NEUROLOGIC: The patient is on a respirator, somnolent and is nonverbal, unable to evaluate. IMPRESSION AND PLAN: Edgar Salinas is an unfortunate 83-year-old male. He is on appropriate antibiot ics at this point. If he spikes fevers, we will get some blood cultures and some sputum cultures. I will dictate my findings to the hospitalist and to the aforementioned consultants. Dictated By: KENDAL BLAND MD, JD/NTS Conf#: [id number] DID#: [id number] CC: RUBÉN BENITO MD; OPAL RODRIGUEZ MD; HARLEY STARR MD;*EndCC*
[2018-07-30] MEDS: CEFEPIME 1GM/50 ML IVPB SCH (21:16)
[2018-07-30] MEDS: ATORVASTATIN 40 MG TAB PO SCH (21:17)
[2018-07-30] MEDS: DOXAZOSIN 4 MG TAB PO SCH (21:17)
[2018-07-31] VITALS (54 sets, daily range): BP systolic 111–152; BP diastolic 49–81; PULSE 60–72; RESP 11–24
[2018-07-31] MEDS: INSULIN ASPART [NOVOLOG] 3 ML PEN SC SCH ×6 (01:22→21:00)
--- NOTE | 2018-07-31 07:43 | EEG ---
EEG NOTE Report Details DATE OF TEST: 07/30/17 HISTORY: The patient is an 83-year-old M who presents with altered mental status. This EEG is requested to rule out nonconvulsive status epilepticus. SEDATION: None. CONDITIONS OF RECORDING: This EEG was recorded digitally on the [employer] medical machine, using the International 10-20 System of electrodes plus anterior temporals and [place]. STATES SAMPLED: Comatose. FINDINGS: The background is discontinuous..and grossly symmetric. Brief continuous intervals are predominated by polymorphic delta activity. The normal [id number] frequency-amplitude gradient was absent. Photic stimulation does not elicit any definite driving responses or epileptiform discharges. Hyperventilation was not performed. No asymmetries, focal abnormalities or epileptiform discharges were seen. IMPRESSION: Abnormal electroencephalogram due to: severe diffuse slowing. COMMENT: The slowing of the background indicates severe, diffuse cortical dysfunction of nonspecific etiology. Clinical correlation is advised. JAMMIE AMEZCUA Jul 31, 2018 07:43
[2018-07-31] MEDS: DOXAZOSIN 4 MG TAB PO SCH (08:26)
[2018-07-31] MEDS: FAMOTIDINE 20 MG TAB PO SCH (08:26)
[2018-07-31] MEDS: FINASTERIDE 5 MG TAB PO SCH (08:26)
[2018-07-31] MEDS: ALLOPURINOL 100 MG TAB PO SCH (08:26)
[2018-07-31] MEDS: BACLOFEN 10 MG TAB PO SCH ×2 (08:26→21:26)
[2018-07-31] MEDS: ENOXAPARIN 30 MG/0.3 ML SYG SC SCH (08:27)
[2018-07-31] MEDS: DOCUSATE SODIUM 10 MG/ML (10ML CUP) GTB SCH ×2 (08:48→21:00)
--- NOTE | 2018-07-31 08:50 | CONS ---
Date/Time of Note Date/Time of Note DATE: 07/31/18 TIME: 08:47 Assessment/Plan Assessment/Plan Assessment/Plan Ventilator setting; AC of 16, tidal volume 500, PEEP of 5, 30% FiO2. Assessment recommendations; 1. Patient admitted with severe bilateral pneumonia requiring intubation. If there is significant improvement in oxygenation. 2. Encephalopathy likely toxic/metabolic in etiology. 3. Acute renal failure, now requiring hemodialysis. 4. Anemia and thrombocytopenia. 5. Generalized edema. 6. History of BPH. 7. History of dementia. Continue current supportive care. 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 At this time I would recommending holding off Lyrica as well as Aricept. Prognosis guarded and depends entirely upon adequate mental status and renal function recovery. 35 minutes of critical care time was spent evaluating patient. Result Diagram: 07/31/18 0430 07/31/18 0430 Results 24hrs Laboratory Tests Test 07/30/18 08:54 07/30/18 13:48 07/30/18 17:11 07/30/18 21:17 Bedside Glucose 143 151 135 White Blood Count 13.0 H Red Blood Count 2.85 #L Hemoglobin 9.0 #L Hematocrit 26.6 #L Mean Corpuscular 93.3 Volume Mean Corpuscular 31.6 Hemoglobin Mean Corpuscular 33.8 Hemoglobin Concent Red Cell 14.3 Distribution Width Platelet Count 155 Mean Platelet 13.3 H Volume Immature 1.500 H Granulocytes % Neutrophils % 90.0 H Lymphocytes % 3.4 L Monocytes % 4.5 Eosinophils % 0.4 Basophils % 0.2 Nucleated Red Blood 0.0 Cells % Immature 0.200 H Granulocytes # Neutrophils # 11.7 H Lymphocytes # 0.4 L Monocytes # 0.6 Eosinophils # 0.1 Basophils # 0.0 Nucleated Red Blood 0.0 Cells # Test 07/30/18 21:29 07/31/18 01:21 07/31/18 04:30 07/31/18 04:43 Bedside Glucose 142 153 148 White Blood Count 12.7 H Red Blood Count 2.74 L Hemoglobin 8.7 L Hematocrit 25.1 L Mean Corpuscular 91.6 Volume Mean Corpuscular 31.8 Hemoglobin Mean Corpuscular 34.7 Hemoglobin Concent Red Cell 14.7 H Distribution Width Platelet Count 146 Mean Platelet 13.2 H Volume Immature 1.300 H Granulocytes % Neutrophils % 89.4 H Lymphocytes % 3.2 L Monocytes % 5.4 Eosinophils % 0.5 Basophils % 0.2 Nucleated Red Blood 0.0 Cells % Immature 0.170 H Granulocytes # Neutrophils # 11.3 H Lymphocytes # 0.4 L Monocytes # 0.7 Eosinophils # 0.1 Basophils # 0.0 Nucleated Red Blood 0.0 Cells # Sodium Level 138 Potassium Level 4.2 Chloride Level 99 Carbon Dioxide 26 Level Anion Gap 13 Blood Urea Nitrogen 74 H Creatinine 3.48 H Est Glomerular Filtrat Rate mL/min Glucose Level 156 Calcium Level 8.7 Test 07/31/18 04:55 07/31/18 08:25 Lab Scanned Report BLOOD TRANSFUSION Bedside Glucose 154 Consultation Date/Type/Reason Admit Date/Time Jul 18, 2018 at 16:57 Initial Consult Date 07/19/18 Type of Consult Pulmonary/critical care History presenting any; patient is an 83-year-old male who was sent over to the hospital from physician's office because of severe shortness of breath. Patient has been diagnosed with bilateral pneumonia and has been admitted to ICU. By the time I saw him, patient is on BiPAP at high FiO2 with severe tachypnea. Chest x-ray was reviewed which is showing severe bilateral pneumonia. It was decided to electively intubate the patient. Past medical history; 1. Apparently mild chronic renal insufficiency. 2. Hypertension. 3. BPH. 4. Hyperlipidemia. 5. History of muscle spasm. Medications; reviewed. Allergies; none. Social history; non-smoker. Family history, occupational history not available. Review of system; unable to be obtained. Because of tachypnea. General exam; elderly male, on BiPAP, lethargic. Tachypneic. Requesting Provider: HARLEY STARR 24 HR Interval Summary Free Text/Dictation Patient's condition is critical. Patient has been off sedation for more than 48 hours with persistently poor mental status. Patient however has remained hemodynamically stable. General exam; elderly male, orally intubated, unresponsive, currently in no distress. Exam/Review of Systems Vital Signs Vitals Vital Signs Date Temp Pulse Resp B/P (MAP) Pulse Ox O2 O2 Flow FiO2 Time Delivery Rate 07/31/18 60 21 142/61 100 06:15 (88) 07/31/18 Mechanical 06:00 Ventilator 07/31/18 30 05:11 07/31/18 98.3 04:00 Intake and Output 07/30/18 07/30/18 07/31/18 1515:00 23:00 07:00 IntakeIntake Total 780 ml 825 ml 495 ml OutputOutput Total 2100 ml 45 ml 25 ml BalanceBalance -1320 ml 780 ml 470 ml Exam H EENT exam; supple neck, no lymphadenopathy. No JVD. No neck masses. Patient has fair dentition. Orally intubated. Pupils are small bilaterally. No neck masses. Chest exam; bilateral crackles. S1-S2 audible, no murmurs. Regular rhythm. 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 Abdomen exam; soft, no organomegaly. Bowel sounds audible. There is 2+ scrotal edema. Extremity exam; 1+ anasarca. WIRE MACHINE OPERATOR exam; patient is unresponsive. Medications Medications Current Medications IV Flush (NS 3 ml) 3 ml PER PROTOCOL IV ; Start 07/18/18 at 17:30 Ondansetron HCl (Zofran Inj) 4 mg Q6H PRN IV NAUSEA AND/OR VOMITING; Start 07/18/18 at 17:30 Acetaminophen (Tylenol Tab) 650 mg Q6H PRN PO PAIN LEVEL 1-3 OR FEVER; Start 07/18/18 at 17:30 Enoxaparin Sodium (Lovenox) 30 mg DAILY SC Last administered on 07/30/18 08:57; Admin Dose 30 MG; Start 07/19/18 at 09:00 Atorvastatin Calcium (Lipitor) 40 mg QHS PO Last administered on 07/30/18 21:17; Admin Dose 40 MG; Start 07/18/18 at 21:00 Baclofen (Lioresal) 10 mg BID PO Last administered on 07/30/18 21:17; Admin Dose 10 MG; Start 07/18/18 at 21:00 Docusate Sodium (Colace) 100 mg BID PRN PO CONSTIPATION; Start 07/18/18 at 17:30 Donepezil HCl (Aricept) 5 mg DAILY PO Last administered on 07/30/18 08:55; Admin Dose 5 MG; Start 07/19/18 at 09:00 Doxazosin Mesylate (Cardura) 4 mg HS PO Last administered on 07/30/18 21:17; Admin Dose 4 MG; Start 07/18/18 at 21:00 Finasteride (Proscar) 5 mg DAILY PO Last administered on 07/30/18 08:55; Admin Dose 5 MG; Start 07/19/18 at 09:00 Fluticasone Propionate (Flonase 0.05% Nasal) 1 spray DAILY NASAL Last administered on 07/25/18at 08:12; Admin Dose 1 SPRAY; Start 07/19/18 at 09:00 Haloperidol (Haldol) 5 mg Q2H PRN IM AGITATION Last administered on 07/19/18at 02:37; Admin Dose 5 MG; Start 07/18/18 at 23:30 Pregabalin (Lyrica) 50 mg DAILY PO Last administered on 07/30/18 08:55; Admin Dose 50 MG; Start 07/19/18 at 13:00 Propofol 100 ml @ 1.909 mls/ hr Q12H IV Last administered on 07/29/18 21:42; Admin Dose 7.637 MLS/HR; Start 07/19/18 at 14:00; Status Hold Allopurinol (Zyloprim) 100 mg DAILY PO Last administered on 07/30/18 08:55; Admin Dose 100 MG; Start 07/21/18 at 09:00 Docusate Sodium (Colace Liquid Cup) 100 mg BID GTB Last administered on 07/30/18 21:16; Admin Dose 100 MG; Start 07/20/18 at 21:00 Fentanyl 100 ml @ 2.5 mls/hr TITRATE IV Last administered on 07/26/18at 04:53; Admin Dose 5 MLS/HR; Start 07/21/18 at 08:00; Status Hold Morphine Sulfate (morphine) 6 mg Q4H PRN PO PAIN LEVEL 7-10; Start 07/21/18 at 11:00 Nifedipine (Procardia) 20 mg TID NGT Last administered on 07/30/18 21:17; Admin Dose 20 MG; Start 07/23/18 at 14:30 Lorazepam (Ativan) 1 mg Q4H PRN GTB AGITATION; Start 07/24/18 at 11:00 Insulin Aspart (Novolog Insulin Pen) NOVOLOG *MILD* ALGORI... Q4 SC Last administered on 07/31/18 04:45; Admin Dose 1 UNIT; Start 07/26/18 at 17:00 Miscellaneous Information 1 ea NOTE XX ; Start 07/26/18 at 14:30 Glucose (Glutose) 15 gm Q15M PRN PO DECREASED GLUCOSE; Start 07/26/18 at 14:30 Glucose (Glutose) 22.5 gm Q15M PRN PO DECREASED GLUCOSE; Start 07/26/18 at 14:30 Dextrose (D50w Syringe) 25 ml Q15M PRN IV DECREASED GLUCOSE; Start 07/26/18 at 14:30 Dextrose (D50w Syringe) 50 ml Q15M PRN IV DECREASED GLUCOSE; Start 07/26/18 at 14:30 Glucagon (Glucagen) 1 mg Q15M PRN IM DECREASED GLUCOSE; Start 07/26/18 at 14:30 Glucose (Glutose) 15 gm Q15M PRN BUCCAL DECREASED GLUCOSE; Start 07/26/18 at 14:30 Cefepime HCl 50 ml @ 100 mls/hr Q24H IVPB Last administered on 07/30/18at 21:16; Admin Dose 100 MLS/HR; Start 07/28/18 at 21:00 Heparin Sodium (Porcine) (Heparin (1000 Units/ml)) 3,000 unit AFTER DIALYSIS CATHETER Last administered on 07/29/18at 12:27; Admin Dose 3,000 UNIT; Start 07/29/18 at 09:30 Famotidine (Pepcid) 20 mg DAILY PO ; Start 07/31/18 at 09:00 PATIENCE MCDONNELL Jul 31, 2018 08:50
[2018-07-31] MEDS: FLUTICASONE 0.05% 16 GM NAS SPRAY NASAL SCH (09:00)
--- NOTE | 2018-07-31 11:08 | PN ---
Date/Time of Note Date/Time of Note DATE: 07/31/18 TIME: 11:07 Assessment/Plan Lines/Catheters IV Catheter Type (from Nrsg): Vinnie Owens in Place (from Nrsg): Yes Assessment/Plan Assessment/Plan SP dialysis cath placement Will continue Dialysis Subjective 24 Hr Interval Summary Constitutional: improved Pain Control: mild Exam/Review of Systems Vital Signs Vitals Vital Signs Date Temp Pulse Resp B/P (MAP) Pulse Ox O2 O2 Flow FiO2 Time Delivery Rate 07/31/18 60 13 117/55 100 Mechanical 10:00 (75) Ventilator 07/31/18 98.3 08:00 07/31/18 30 08:00 Intake and Output 07/30/18 07/30/18 07/31/18 1515:00 23:00 07:00 IntakeIntake Total 780 ml 825 ml 495 ml OutputOutput Total 2100 ml 45 ml 25 ml BalanceBalance -1320 ml 780 ml 470 ml Exam Eyes: nl conjunctiva, EOMI, nl lids, nl sclera ENMT: nl external ears & nose, nl lips & teeth, nl nasal mucosa & septum, mucosa pink and moist Neck: supple, non-tender Respiratory: clear to auscultation, normal air movement Cardiovascular: regular rate and rhythm, nl pulses Gastrointestinal: soft, nl liver, spleen, non-tender Results Result Diagram: 07/31/1842907/31/18429 OPAL RODRIGUEZ MD Jul 31, 2018 11:08
[2018-07-31] MEDS: NIFEdipine 10 MG CAP NGT SCH ×3 (11:29→21:25)
[2018-07-31] MEDS: BALSAM PERU/CASTOR OIL 60 GM TUBE TOP SCH ×2 (11:30→21:00)
--- NOTE | 2018-07-31 11:58 | PN ---
Date/Time of Note Date/Time of Note DATE: 07/31/18 TIME: 11:57 Assessment/Plan VTE Prophylaxis Risk score (from Ns)>0 risk: 14 SCD applied (from Ns): Yes Pharmacological prophylaxis: heparin Lines/Catheters IV Catheter Type (from [facility]): Vinnie Central line still needed: Yes Urinary Cath still in place: Yes Reason Cath still needed: urinary retention Assessment/Plan Hospital Course Patient continues on ventilatory support, unresponsive, off propofol.CT brain is neg. Assessment/Plan -Acute hypoxemic respiratory failure, ventilatory support, Dr. Mendoza is following in pulmonology consultation. -Possible pneumonia, continue antibiotics. Dr. Rebolledo is asked to see patient in infection disease consultation. -Acute renal failure failure, started on hemodialysis. Dr. Mari is following and nephrology consultation -Encephalopathy. Dr. Herndon is following in neurology consultation. -Anemia, stool for OB, transfused as needed -Coronary artery disease history of stent placement. Dr. Lassiter is following in cardiology consultation. -PPM -History of prostate CA Further recommendations based on clinical course. Plan of care discussed with Dr. Brown. Result Diagram: 07/31/18 0430 07/31/18 0430 Results 24hrs Laboratory Tests Test 07/30/18 13:48 07/30/18 17:11 07/30/18 21:17 07/30/18 21:29 Bedside Glucose 151 135 142 White Blood Count 13.0 H Red Blood Count 2.85 #L Hemoglobin 9.0 #L Hematocrit 26.6 #L Mean Corpuscular 93.3 Volume Mean Corpuscular 31.6 Hemoglobin Mean Corpuscular 33.8 Hemoglobin Concen t Red Cell 14.3 Distribution Width Platelet Count 155 Mean Platelet 13.3 H Volume Immature 1.500 H Granulocytes % Neutrophils % 90.0 H Lymphocytes % 3.4 L Monocytes % 4.5 Eosinophils % 0.4 Basophils % 0.2 Nucleated Red 0.0 Blood Cells % Immature 0.200 H Granulocytes # Neutrophils # 11.7 H Lymphocytes # 0.4 L Monocytes # 0.6 Eosinophils # 0.1 Basophils # 0.0 Nucleated Red 0.0 Blood Cells # Test 07/31/18 01:21 07/31/18 04:30 07/31/18 04:43 07/31/18 04:55 Bedside Glucose 153 148 White Blood Count 12.7 H Red Blood Count 2.74 L Hemoglobin 8.7 L Hematocrit 25.1 L Mean Corpuscular 91.6 Volume Mean Corpuscular 31.8 Hemoglobin Mean Corpuscular 34.7 Hemoglobin Concen t Red Cell 14.7 H Distribution Width Platelet Count 146 Mean Platelet 13.2 H Volume Immature 1.300 H Granulocytes % Neutrophils % 89.4 H Lymphocytes % 3.2 L Monocytes % 5.4 Eosinophils % 0.5 Basophils % 0.2 Nucleated Red 0.0 Blood Cells % Immature 0.170 H Granulocytes # Neutrophils # 11.3 H Lymphocytes # 0.4 L Monocytes # 0.7 Eosinophils # 0.1 Basophils # 0.0 Nucleated Red 0.0 Blood Cells # Sodium Level 138 Potassium Level 4.2 Chloride Level 99 Carbon Dioxide 26 Level Anion Gap 13 Blood Urea 74 H Nitrogen Creatinine 3.48 H Est Glomerular Filtrat Rate mL/min Glucose Level 156 Calcium Level 8.7 Lab Scanned BLOOD TRANSFUSIO Report N Test 07/31/18 08:25 07/31/18 09:00 07/31/18 11:35 Bedside Glucose 154 Stool Occult NEGATIVE Blood Lab Scanned REFERENCE LAB Report Exam/Review of Systems Vital Signs Vitals Vital Signs Date Temp Pulse Resp B/P (MAP) Pulse Ox O2 O2 Flow FiO2 Time Delivery Rate 07/31/18 60 13 117/55 100 Mechanical 10:00 (75) Ventilator 07/31/18 98.3 08:00 07/31/18 30 08:00 Intake and Output 07/30/18 07/30/18 07/31/18 1515:00 23:00 07:00 IntakeIntake Total 780 ml 825 ml 495 ml OutputOutput Total 2100 ml 45 ml 25 ml BalanceBalance -1320 ml 780 ml 470 ml Exam Constitutional: non-verbal, frail Head: normocephalic Respiratory: diminished breath sounds, rhonchi Cardiovascular: regular rate and rhythm, other (PPM) Gastrointestinal: soft, non-tender Genitourinary - Male: other ([place]) Musculoskeletal: nl extremities to inspection Extremities: normal pulses Neurological: unresponsive Skin: nl turgor Additional Comments Right femoral Vinnie catheter Medications Medications Current Medications IV Flush (NS 3 ml) 3 ml PER PROTOCOL IV ; Start 07/18/18 at 17:30 Ondansetron HCl (Zofran Inj) 4 mg Q6H PRN IV NAUSEA AND/OR VOMITING; Start 07/18/18 at 17:30 Acetaminophen (Tylenol Tab) 650 mg Q6H PRN PO PAIN LEVEL 1-3 OR FEVER; Start 07/18/18 at 17:30 Enoxaparin Sodium (Lovenox) 30 mg DAILY SC Last administered on 07/31/18 08:27; Admin Dose 30 MG; Start 07/19/18 at 09:00 Atorvastatin Calcium (Lipitor) 40 mg QHS PO Last administered on 07/30/18 21:17; Admin Dose 40 MG; Start 07/18/18 at 21:00 Baclofen (Lioresal) 10 mg BID PO Last administered on 07/31/18 08:26; Admin Dose 10 MG; Start 07/18/18 at 21:00 Docusate Sodium (Colace) 100 mg BID PRN PO CONSTIPATION; Start 07/18/18 at 17:30 Doxazosin Mesylate (Cardura) 4 mg HS PO Last administered on 07/31/18 08:26; Admin Dose 4 MG; Start 07/18/18 at 21:00 Finasteride (Proscar) 5 mg DAILY PO Last administered on 07/31/18 08:26; Admin Dose 5 MG; Start 07/19/18 at 09:00 Haloperidol (Haldol) 5 mg Q2H PRN IM AGITATION Last administered on 07/19/18at 02:37; Admin Dose 5 MG; Start 07/18/18 at 23:30 Propofol 100 ml @ 1.909 mls/ hr Q12H IV Last administered on 07/29/18 21:42; Admin Dose 7.637 MLS/HR; Start 07/19/18 at 14:00; Status Hold Allopurinol (Zyloprim) 100 mg DAILY PO Last administered on 07/31/18 08:26; Admin Dose 100 MG; Start 07/21/18 at 09:00 Docusate Sodium (Colace Liquid Cup) 100 mg BID GTB Last administered on 07/30/18 21:16; Admin Dose 100 MG; Start 07/20/18 at 21:00 Fentanyl 100 ml @ 2.5 mls/hr TITRATE IV Last administered on 07/26/18at 04:53; Admin Dose 5 MLS/HR; Start 07/21/18 at 08:00; Status Hold Morphine Sulfate (morphine) 6 mg Q4H PRN PO PAIN LEVEL 7-10; Start 07/21/18 at 11:00 Nifedipine (Procardia) 20 mg TID NGT Last administered on 07/31/18 11:29; Admin Dose 20 MG; Start 07/23/18 at 14:30 Lorazepam (Ativan) 1 mg Q4H PRN GTB AGITATION; Start 07/24/18 at 11:00 Insulin Aspart (Novolog Insulin Pen) NOVOLOG *MILD* ALGORI... Q4 SC Last administered on 07/31/18 08:34; Admin Dose 1 UNIT; Start 07/26/18 at 17:00 Miscellaneous Information 1 ea NOTE XX ; Start 07/26/18 at 14:30 Glucose (Glutose) 15 gm Q15M PRN PO DECREASED GLUCOSE; Start 07/26/18 at 14:30 Glucose (Glutose) 22.5 gm Q15M PRN PO DECREASED GLUCOSE; Start 07/26/18 at 14:30 Dextrose (D50w Syringe) 25 ml Q15M PRN IV DECREASED GLUCOSE; Start 07/26/18 at 14:30 Dextrose (D50w Syringe) 50 ml Q15M PRN IV DECREASED GLUCOSE; Start 07/26/18 at 14:30 Glucagon (Glucagen) 1 mg Q15M PRN IM DECREASED GLUCOSE; Start 07/26/18 at 14:30 Glucose (Glutose) 15 gm Q15M PRN BUCCAL DECREASED GLUCOSE; Start 07/26/18 at 14:30 Cefepime HCl 50 ml @ 100 mls/hr Q24H IVPB Last administered on 07/30/18 21:16; Admin Dose 100 MLS/HR; Start 07/28/18 at 21:00 Heparin Sodium (Porcine) (Heparin (1000 Units/ml)) 3,000 unit AFTER DIALYSIS CATHETER Last administered on 07/29/18 12:27; Admin Dose 3,000 UNIT; Start 07/29/18 at 09:30 Famotidine (Pepcid) 20 mg DAILY PO Last administered on 07/31/18 08:26; Admin Dose 20 MG; Start 07/31/18 at 09:00 RADHA FISHER Jul 31, 2018 11:58
--- NOTE | 2018-07-31 13:18 | CONS ---
Assessment/Plan Assessment/Plan Hospital Course 83 M who is admitted to the [facility] ICU for management of acute respiratory failure. CXR revealed bilateral pneumonias.. Neurology is consulted to evaluation ams.. Of note, he remains in severe MYKE requiring HD..which is a likely contributor.. Also notably, he was initially on versed, which was ultimately transitioned to propofol... Most clinically consistent w/ an acute and severe toxic-metabolic encephalo nj.. Intracranial hemorrhage is excluded. Seizure is unlikely.. CTH is without acute intracranial pathology. EEG is without epileptiform activity. P: Ok to defer additional neuroimaging for now Await ammonia level Cont to limit sedating medications where possible Other medical management and supportive care per primary Will follow clinically Result Diagram: 07/31/18 0430 07/31/18 0430 Results 24hrs Laboratory Tests Test 07/30/18 13:48 07/30/18 17:11 07/30/18 21:17 07/30/18 21:29 Bedside Glucose 151 135 142 White Blood Count 13.0 H Red Blood Count 2.85 #L Hemoglobin 9.0 #L Hematocrit 26.6 #L Mean Corpuscular 93.3 Volume Mean Corpuscular 31.6 Hemoglobin Mean Corpuscular 33.8 Hemoglobin Concent Red Cell 14.3 Distribution Width Platelet Count 155 Mean Platelet 13.3 H Volume Immature 1.500 H Granulocytes % Neutrophils % 90.0 H Lymphocytes % 3.4 L Monocytes % 4.5 Eosinophils % 0.4 Basophils % 0.2 Nucleated Red Blood 0.0 Cells % Immature 0.200 H Granulocytes # Neutrophils # 11.7 H Lymphocytes # 0.4 L Monocytes # 0.6 Eosinophils # 0.1 Basophils # 0.0 Nucleated Red Blood 0.0 Cells # Test 07/31/18 01:21 07/31/18 04:30 07/31/18 04:43 07/31/18 04:55 Bedside Glucose 153 148 White Blood Count 12.7 H Red Blood Count 2.74 L Hemoglobin 8.7 L Hematocrit 25.1 L Mean Corpuscular 91.6 Volume Mean Corpuscular 31.8 Hemoglobin Mean Corpuscular 34.7 Hemoglobin Concent Red Cell 14.7 H Distribution Width Platelet Count 146 Mean Platelet 13.2 H Volume Immature 1.300 H Granulocytes % Neutrophils % 89.4 H Lymphocytes % 3.2 L Monocytes % 5.4 Eosinophils % 0.5 Basophils % 0.2 Nucleated Red Blood 0.0 Cells % Immature 0.170 H Granulocytes # Neutrophils # 11.3 H Lymphocytes # 0.4 L Monocytes # 0.7 Eosinophils # 0.1 Basophils # 0.0 Nucleated Red Blood 0.0 Cells # Sodium Level 138 Potassium Level 4.2 Chloride Level 99 Carbon Dioxide 26 Level Anion Gap 13 Blood Urea Nitrogen 74 H Creatinine 3.48 H Est Glomerular Filtrat Rate mL/min Glucose Level 156 Calcium Level 8.7 Lab Scanned Report BLOOD TRANSFUSION Test 07/31/18 08:25 07/31/18 09:00 07/31/18 11:17 07/31/18 11:35 Bedside Glucose 154 Stool Occult Blood NEGATIVE Troponin I 0.381 *H Lab Scanned Report REFERENCE LAB Test 07/31/18 13:15 Bedside Glucose 174 Consultation Date/Type/Reason Admit Date/Time Jul 18, 2018 at 16:57 Type of Consult Neurology Requesting Provider: HARLEY STARR Date/Time of Note DATE: 07/31/18 TIME: 13:18 24 HR Interval Summary Free Text/Dictation Continues critical care. Off propofol, lyrica, aricept. No changes in pt condition reported. Subjective hx not possible: pt non-verbal, pt critical status Exam Vital Signs Vitals Vital Signs Date Temp Pulse Resp B/P (MAP) Pulse Ox O2 O2 Flow FiO2 Time Delivery Rate 07/31/18 64 12:00 07/31/18 98.4 13 137/61 98 Mechanical 12:00 (86) Ventilator 07/31/18 30 11:10 Intake and Output 07/30/18 07/30/18 07/31/18 1515:00 23:00 07:00 IntakeIntake Total 780 ml 825 ml 530 ml OutputOutput Total 2100 ml 45 ml 35 ml BalanceBalance -1320 ml 780 ml 495 ml Exam PE: Gen Appearance: No Apparent Distress HEENT: Intubated Cardiovascular: Regular rate Abdomen: Soft Extremities: Dry NE: The patient was comatose. Cranial nerve examination was limited by mental status. Pupils were equal and sluggishly reactive to light. There was no afferent pupillary defect. Funduscopic examination was limited. Face was grossly symmetric, w/ present corneal and cough reflexes. Tone was normal. Muscle bulk was normal. I did not see fasciculations. The patient withdrew to noxious stimulation x 4. Coordination and gait testing was limited by mental status. Arm and leg reflexes were symmetric. Chacon's sign was absent. Plantar responses were mute. RIKI MAHAN NP Jul 31, 2018 13:18
--- NOTE | 2018-07-31 13:37 | CONS ---
Date/Time of Note Date/Time of Note DATE: 07/31/18 TIME: 13:37 Assessment/Plan Assessment/Plan Assessment/Plan 1. Acute renal failure due to ATN from sepsis + prerenal azotemia 2. Sepsis due to PNA 3. Acute Hypoxemic respiratory failure due to PNA - Intubated on ventilator 4. H/o CAD s/p previous stent placement 5. h/o Pacemaker placement 6. H/o HTN 7. H/o HL 8. H/o Chronic back pain, Prostate CA 9. Hypernatremia - now resolved 10. 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 will follow up Result Diagram: 07/31/18 0430 07/31/18 0430 Results 24hrs Laboratory Tests Test 07/30/18 13:48 07/30/18 17:11 07/30/18 21:17 07/30/18 21:29 Bedside Glucose 151 135 142 White Blood Count 13.0 H Red Blood Count 2.85 #L Hemoglobin 9.0 #L Hematocrit 26.6 #L Mean Corpuscular 93.3 Volume Mean Corpuscular 31.6 Hemoglobin Mean Corpuscular 33.8 Hemoglobin Concent Red Cell 14.3 Distribution Width Platelet Count 155 Mean Platelet 13.3 H Volume Immature 1.500 H Granulocytes % Neutrophils % 90.0 H Lymphocytes % 3.4 L Monocytes % 4.5 Eosinophils % 0.4 Basophils % 0.2 Nucleated Red Blood 0.0 Cells % Immature 0.200 H Granulocytes # Neutrophils # 11.7 H Lymphocytes # 0.4 L Monocytes # 0.6 Eosinophils # 0.1 Basophils # 0.0 Nucleated Red Blood 0.0 Cells # Test 07/31/18 01:21 07/31/18 04:30 07/31/18 04:43 07/31/18 04:55 Bedside Glucose 153 148 White Blood Count 12.7 H Red Blood Count 2.74 L Hemoglobin 8.7 L Hematocrit 25.1 L Mean Corpuscular 91.6 Volume Mean Corpuscular 31.8 Hemoglobin Mean Corpuscular 34.7 Hemoglobin Concent Red Cell 14.7 H Distribution Width Platelet Count 146 Mean Platelet 13.2 H Volume Immature 1.300 H Granulocytes % Neutrophils % 89.4 H Lymphocytes % 3.2 L Monocytes % 5.4 Eosinophils % 0.5 Basophils % 0.2 Nucleated Red Blood 0.0 Cells % Immature 0.170 H Granulocytes # Neutrophils # 11.3 H Lymphocytes # 0.4 L Monocytes # 0.7 Eosinophils # 0.1 Basophils # 0.0 Nucleated Red Blood 0.0 Cells # Sodium Level 138 Potassium Level 4.2 Chloride Level 99 Carbon Dioxide 26 Level Anion Gap 13 Blood Urea Nitrogen 74 H Creatinine 3.48 H Est Glomerular Filtrat Rate mL/min Glucose Level 156 Calcium Level 8.7 Lab Scanned Report BLOOD TRANSFUSION Test 07/31/18 08:25 07/31/18 09:00 07/31/18 11:17 07/31/18 11:35 Bedside Glucose 154 Stool Occult Blood NEGATIVE Troponin I 0.381 *H Lab Scanned Report REFERENCE LAB Test 07/31/18 13:15 Bedside Glucose 174 Consultation Date/Type/Reason Admit Date/Time Jul 18, 2018 at 16:57 Initial Consult Date 07/19/18 Type of Consult NEPHROLOGY Requesting Provider: HARLEY STARR 24 HR Interval Summary Free Text/Dictation remains intubated, BP stable, paln for HD tomorrow Exam/Review of Systems Vital Signs Vitals Vital Signs Date Temp Pulse Resp B/P (MAP) Pulse Ox O2 O2 Flow FiO2 Time Delivery Rate 07/31/18 64 12:00 07/31/18 98.4 13 137/61 98 Mechanical 12:00 (86) Ventilator 07/31/18 30 11:10 Intake and Output 07/30/18 07/30/18 07/31/18 1515:00 23:00 07:00 IntakeIntake Total 780 ml 825 ml 530 ml OutputOutput Total 2100 ml 45 ml 35 ml BalanceBalance -1320 ml 780 ml 495 ml Exam Constitutional: non-verbal, other (Intubated on ventilator ) Eyes: other (ET tube in place ), NG tube place Respiratory: diminished breath sounds, other (Bilateral Coarse BS+) Cardiovascular: regular rate and rhythm Gastrointestinal: soft, non-tender Musculoskeletal: muscle weakness, swelling, other (Bilateral UE edema ) Neurological: other (Intubated, sedated on ventilator ) Medications Medications Current Medications IV Flush (NS 3 ml) 3 ml PER PROTOCOL IV ; Start 07/18/18 at 17:30 Ondansetron HCl (Zofran Inj) 4 mg Q6H PRN IV NAUSEA AND/OR VOMITING; Start 07/18/18 at 17:30 Acetaminophen (Tylenol Tab) 650 mg Q6H PRN PO PAIN LEVEL 1-3 OR FEVER; Start 07/18/18 at 17:30 Atorvastatin Calcium (Lipitor) 40 mg QHS PO Last administered on 07/30/18 21:17; Admin Dose 40 MG; Start 07/18/18 at 21:00 Baclofen (Lioresal) 10 mg BID PO Last administered on 07/31/18 08:26; Admin Dose 10 MG; Start 07/18/18 at 21:00 Docusate Sodium (Colace) 100 mg BID PRN PO CONSTIPATION; Start 07/18/18 at 17:30 Doxazosin Mesylate (Cardura) 4 mg HS PO Last administered on 07/31/18 08:26; Admin Dose 4 MG; Start 07/18/18 at 21:00 Finasteride (Proscar) 5 mg DAILY PO Last administered on 07/31/18 08:26; Admin Dose 5 MG; Start 07/19/18 at 09:00 Haloperidol (Haldol) 5 mg Q2H PRN IM AGITATION Last administered on 07/19/18at 02:37; Admin Dose 5 MG; Start 07/18/18 at 23:30 Propofol 100 ml @ 1.909 mls/ hr Q12H IV Last administered on 07/29/18 21:42; Admin Dose 7.637 MLS/HR; Start 07/19/18 at 14:00; Status Hold Allopurinol (Zyloprim) 100 mg DAILY PO Last administered on 07/31/18 08:26; Admin Dose 100 MG; Start 07/21/18 at 09:00 Docusate Sodium (Colace Liquid Cup) 100 mg BID GTB Last administered on 07/30/18 21:16; Admin Dose 100 MG; Start 07/20/18 at 21:00 Fentanyl 100 ml @ 2.5 mls/hr TITRATE IV Last administered on 07/26/18at 04:53; Admin Dose 5 MLS/HR; Start 07/21/18 at 08:00; Status Hold Morphine Sulfate (morphine) 6 mg Q4H PRN PO PAIN LEVEL 7-10; Start 07/21/18 at 11:00 Nifedipine (Procardia) 20 mg TID NGT Last administered on 07/31/18 11:29; Admin Dose 20 MG; Start 07/23/18 at 14:30 Lorazepam (Ativan) 1 mg Q4H PRN GTB AGITATION; Start 07/24/18 at 11:00 Insulin Aspart (Novolog Insulin Pen) NOVOLOG *MILD* ALGORI... Q4 SC Last administered on 07/31/18 13:23; Admin Dose 1 UNIT; Start 07/26/18 at 17:00 Miscellaneous Information 1 ea NOTE XX ; Start 07/26/18 at 14:30 Glucose (Glutose) 15 gm Q15M PRN PO DECREASED GLUCOSE; Start 07/26/18 at 14:30 Glucose (Glutose) 22.5 gm Q15M PRN PO DECREASED GLUCOSE; Start 07/26/18 at 14:30 Dextrose (D50w Syringe) 25 ml Q15M PRN IV DECREASED GLUCOSE; Start 07/26/18 at 14:30 Dextrose (D50w Syringe) 50 ml Q15M PRN IV DECREASED GLUCOSE; Start 07/26/18 at 14:30 Glucagon (Glucagen) 1 mg Q15M PRN IM DECREASED GLUCOSE; Start 07/26/18 at 14:30 Glucose (Glutose) 15 gm Q15M PRN BUCCAL DECREASED GLUCOSE; Start 07/26/18 at 14:30 Cefepime HCl 50 ml @ 100 mls/hr Q24H IVPB Last administered on 07/30/18 21:16; Admin Dose 100 MLS/HR; Start 07/28/18 at 21:00 Heparin Sodium (Porcine) (Heparin (1000 Units/ml)) 3,000 unit AFTER DIALYSIS CATHETER Last administered on 07/29/18 12:27; Admin Dose 3,000 UNIT; Start 07/29/18 at 09:30 Famotidine (Pepcid) 20 mg DAILY PO Last administered on 07/31/18 08:26; Admin Dose 20 MG; Start 07/31/18 at 09:00 Heparin Sodium (Porcine) (Heparin (5000 Units/1ml)) 5,000 unit BID SC ; Start 08/01/18 at 09:00 FELICIANO RAMIREZ MD Jul 31, 2018 13:37
--- NOTE | 2018-07-31 16:03 | CONS ---
DATE OF ADMISSION: 07/18/2018 DATE OF CONSULTATION: 07/31/2018 REASON FOR CONSULTATION: History of coronary artery disease, status post stent, history of permanent pacemaker. REQUESTING PHYSICIAN: Rubén Benito MD HISTORY OF PRESENT ILLNESS: Mr. Salinas is an 83-year-old male with a history of permanent pacemaker, hypertension, dyslipidemia, prostate CA, chronic low back pain, prior PTCA and stent placement, dyslipidemia who initially presented from his primary care physician's office with complaints of worsening shortness of breath. The patient presented to [facility] where he was diagnosed with bilateral pneumonia requiring a BiPAP and subsequently required intubation after having worsening respiratory failure on BiPAP. The patient has since been admitted to the ICU where he remains at this time intubated. The patient has had stable blood pressures and a negative troponin x1. PAST MEDICAL HISTORY: As above in HPI. MEDICATIONS CURRENTLY IN HOSPITAL: 1. Pepcid. 2. Heparin. 3. Cefepime. 4. Insulin sliding scale. 5. Procardia 20 mg t.i.d. 6. Morphine. 7. Allopurinol. 8. Colace. 9. Lovenox subcutaneously daily. 10. Finasteride. 11. Flonase. 12. Haldol. 13. Lipitor 40 mg at bedtime. 14. Baclofen. 15. Cardura 4 mg at bedtime. 16. Tylenol p.r.n. 17. Zofran p.r.n. 18. Colace p.r.n. ALLERGIES: No known drug allergies. SOCIAL HISTORY: No current tobacco, ETOH or illicit drug use. FAMILY HISTORY: No history of sudden cardiac or early CAD. REVIEW OF SYSTEMS: As above in HPI. CONSTITUTIONAL: No current fevers. PULMONARY: Respiratory failure. GASTROINTESTINAL: No vomiting. GENITOURINARY: Renal failure. PSYCHIATRIC: No documented psych history. NEUROLOGIC: No documented history of CVA. ENDOCRINE: , diabetes mellitus. HEMATOLOGY: Anemia, leukocytosis. CARDIOVASCULAR: Renal failure CARDIAC: Permanent pacemaker. PHYSICAL EXAMINATION: VITAL SIGNS: Temperature of 98.3, blood pressure 117/55, pulse 60, respiratory rate 13, satting 100%. GENERAL: The patient is intubated and sedated. NECK: JVP approximately 8 to 9 cm of water. CHEST: Upper airway transmitted rhonchorous sounds. HEART: Regular rate and rhythm. Normal S1, S2, 1/6 systolic murmur, nondisplaced PMI. ABDOMEN: Positive bowel sounds, soft. EXTREMITIES: No significant pitting edema, 1+ pulses bilateral posterior tibial. LABORATORY DATA: Most recent from today, white blood cell 12.7, hemoglobin 8.7, platelet count 146. Sodium 138, potassium 4.2, creatinine 3.4, BUN 74, glucose 154. INR 1.34. IMAGING STUDIES: Chest x-ray from the 2nd revealing bilateral diffuse pulmonary infiltrates, persist with appearance of pulmonary edema. ECG: From 07/18/2018 at that time revealed a ventricular paced rhythm. IMPRESSION: 1. Hypertension, uncontrolled. 2. History of permanent pacemaker. No signs of dysfunction at this time, primarily ventricular pacing. 3. History of percutaneous transluminal coronary angioplasty and stent placement. 4. Respiratory failure, status post intubation. 5. End-stage renal disease on hemodialysis. 6. Anemia. 7. Leukocytosis with a history of benign prostatic hypertrophy. 8. Pneumonia, bilateral. 9. Dementia. 10. Encephalopathy. RECOMMENDATIONS: 1. At this time, would maintain patient in ICU on close monitoring. 2. Would complete a rule out for myocardial infarction to ensure the patient's symptoms are not the result of or not resulted in acute coronary syndrome such as acute myocardial infarction. 3. The patient is status post 2D echo this admission with an ejection fraction of 40%. 4. The patient was on broad-spectrum antibiotics and follow up all culture data. 5. Continue the patient's current statin and adjust it according to a fasting lipid panel to be checked 6. Continue the patient's current Procardia with improved blood pressures. 7. Wean the patient's vent as possible. Thank you for allowing me to take part in the care of this patient. I will continue to follow very closely with you with further recommendations to be made as the patient progresses through his inpatient hospital clinical course. Dictated By: PETRA LEMUS/JAVIER Conf#: [id number] DID#: [id number] CC: HARLEY STARR MD; RUBÉN BENITO MD;*EndCC* MTDD
--- NOTE | 2018-07-31 16:53 | CONS ---
Date/Time of Note Date/Time of Note DATE: 07/31/18 TIME: 16:53 Assessment/Plan Assessment/Plan Hospital Course Remains intubated sedated looks comfortable, no fevers overnight Temperature 98.5 pulse 60 respirations 24 blood pressure 125/56 saturation 96% on vent WBC 12.7 H&H 8.7 and 25.1 platelets 146 neutrophils 89.4 BUN 37 creatinine 3.48 Indwelling's: Endotracheal tube: NG tube: Owens catheter: Right upper extremity PICC line, permanent pacemaker Antimicrobials: Cefepime Microbiology: Cultures since admission had been negative Chest x-ray yesterday revealed bilateral diffuse pulmonary infiltrates Physical examination: Chronically ill-appearing elderly man who is intubated in no distress. Head atraumatic normocephalic. Sclera nonicteric. Neck is supple chest rise symmetrical breath sounds diminished bases. Heart: S1-S2. Abdomen soft bowel sounds hypoactive. Extremities with dependent edema Assessment: 1. Sepsis, resolving status post shock 2. Acute hypoxemic respiratory failure 3. Severe bilateral pneumonia 4. Encephalopathy, likely toxic metabolic 5. Anemia Plan: Patient is hemodynamically stable, he is being seen by multiple consultants, continue on current antibiotics for couple more days, vent management per pulmonary Result Diagram: 07/31/18 0430 07/31/18 0430 Results 24hrs Laboratory Tests Test 07/30/18 17:11 07/30/18 21:17 07/30/18 21:29 07/31/18 01:21 Bedside Glucose 135 142 153 White Blood Count 13.0 H Red Blood Count 2.85 #L Hemoglobin 9.0 #L Hematocrit 26.6 #L Mean Corpuscular 93.3 Volume Mean Corpuscular 31.6 Hemoglobin Mean Corpuscular 33.8 Hemoglobin Concent Red Cell 14.3 Distribution Width Platelet Count 155 Mean Platelet 13.3 H Volume Immature 1.500 H Granulocytes % Neutrophils % 90.0 H Lymphocytes % 3.4 L Monocytes % 4.5 Eosinophils % 0.4 Basophils % 0.2 Nucleated Red Blood 0.0 Cells % Immature 0.200 H Granulocytes # Neutrophils # 11.7 H Lymphocytes # 0.4 L Monocytes # 0.6 Eosinophils # 0.1 Basophils # 0.0 Nucleated Red Blood 0.0 Cells # Test 07/31/18 04:30 07/31/18 04:43 07/31/18 04:55 07/31/18 08:25 White Blood Count 12.7 H Red Blood Count 2.74 L Hemoglobin 8.7 L Hematocrit 25.1 L Mean Corpuscular 91.6 Volume Mean Corpuscular 31.8 Hemoglobin Mean Corpuscular 34.7 Hemoglobin Concent Red Cell 14.7 H Distribution Width Platelet Count 146 Mean Platelet 13.2 H Volume Immature 1.300 H Granulocytes % Neutrophils % 89.4 H Lymphocytes % 3.2 L Monocytes % 5.4 Eosinophils % 0.5 Basophils % 0.2 Nucleated Red Blood 0.0 Cells % Immature 0.170 H Granulocytes # Neutrophils # 11.3 H Lymphocytes # 0.4 L Monocytes # 0.7 Eosinophils # 0.1 Basophils # 0.0 Nucleated Red Blood 0.0 Cells # Sodium Level 138 Potassium Level 4.2 Chloride Level 99 Carbon Dioxide 26 Level Anion Gap 13 Blood Urea Nitrogen 74 H Creatinine 3.48 H Est Glomerular Filtrat Rate mL/min Glucose Level 156 Calcium Level 8.7 Bedside Glucose 148 154 Lab Scanned Report BLOOD TRANSFUSION Test 07/31/18 09:00 07/31/18 11:17 07/31/18 11:35 07/31/18 13:15 Stool Occult Blood NEGATIVE Troponin I 0.381 *H Lab Scanned Report REFERENCE LAB Bedside Glucose 174 Test 07/31/18 16:50 Bedside Glucose 159 Consultation Date/Type/Reason Admit Date/Time Jul 18, 2018 at 16:57 Initial Consult Date 07/19/18 Type of Consult ID Requesting Provider: HARLEY STARR Exam/Review of Systems Vital Signs Vitals Vital Signs Date Temp Pulse Resp B/P (MAP) Pulse Ox O2 O2 Flow FiO2 Time Delivery Rate 07/31/18 98.7 60 24 125/56 96 Mechanical 16:00 (79) Ventilator 07/31/18 30 11:10 Intake and Output 07/30/18 07/30/18 07/31/18 1414:59 22:59 06:59 IntakeIntake Total 795.237 ml 790 ml 530 ml OutputOutput Total 2100 ml 25 ml 45 ml BalanceBalance -1304.763 ml 765 ml 485 ml Medications Medications Current Medications IV Flush (NS 3 ml) 3 ml PER PROTOCOL IV ; Start 07/18/18 at 17:30 Ondansetron HCl (Zofran Inj) 4 mg Q6H PRN IV NAUSEA AND/OR VOMITING; Start 07/18/18 at 17:30 Acetaminophen (Tylenol Tab) 650 mg Q6H PRN PO PAIN LEVEL 1-3 OR FEVER; Start 07/18/18 at 17:30 Atorvastatin Calcium (Lipitor) 40 mg QHS PO Last administered on 07/30/18 21:17; Admin Dose 40 MG; Start 07/18/18 at 21:00 Baclofen (Lioresal) 10 mg BID PO Last administered on 07/31/18 08:26; Admin Dose 10 MG; Start 07/18/18 at 21:00 Docusate Sodium (Colace) 100 mg BID PRN PO CONSTIPATION; Start 07/18/18 at 17:30 Doxazosin Mesylate (Cardura) 4 mg HS PO Last administered on 07/31/18 08:26; Admin Dose 4 MG; Start 07/18/18 at 21:00 Finasteride (Proscar) 5 mg DAILY PO Last administered on 07/31/18 08:26; Admin Dose 5 MG; Start 07/19/18 at 09:00 Haloperidol (Haldol) 5 mg Q2H PRN IM AGITATION Last administered on 07/19/18at 02:37; Admin Dose 5 MG; Start 07/18/18 at 23:30 Propofol 100 ml @ 1.909 mls/ hr Q12H IV Last administered on 07/29/18 21:42; Admin Dose 7.637 MLS/HR; Start 07/19/18 at 14:00; Status Hold Allopurinol (Zyloprim) 100 mg DAILY PO Last administered on 07/31/18 08:26; Admin Dose 100 MG; Start 07/21/18 at 09:00 Docusate Sodium (Colace Liquid Cup) 100 mg BID GTB Last administered on 07/30/18 21:16; Admin Dose 100 MG; Start 07/20/18 at 21:00 Fentanyl 100 ml @ 2.5 mls/hr TITRATE IV Last administered on 07/26/18at 04:53; Admin Dose 5 MLS/HR; Start 07/21/18 at 08:00; Status Hold Morphine Sulfate (morphine) 6 mg Q4H PRN PO PAIN LEVEL 7-10; Start 07/21/18 at 11:00 Nifedipine (Procardia) 20 mg TID NGT Last administered on 07/31/18 15:00; Admin Dose 20 MG; Start 07/23/18 at 14:30 Lorazepam (Ativan) 1 mg Q4H PRN GTB AGITATION; Start 07/24/18 at 11:00 Insulin Aspart (Novolog Insulin Pen) NOVOLOG *MILD* ALGORI... Q4 SC Last administered on 07/31/18 13:23; Admin Dose 1 UNIT; Start 07/26/18 at 17:00 Miscellaneous Information 1 ea NOTE XX ; Start 07/26/18 at 14:30 Glucose (Glutose) 15 gm Q15M PRN PO DECREASED GLUCOSE; Start 07/26/18 at 14:30 Glucose (Glutose) 22.5 gm Q15M PRN PO DECREASED GLUCOSE; Start 07/26/18 at 14:30 Dextrose (D50w Syringe) 25 ml Q15M PRN IV DECREASED GLUCOSE; Start 07/26/18 at 14:30 Dextrose (D50w Syringe) 50 ml Q15M PRN IV DECREASED GLUCOSE; Start 07/26/18 at 14:30 Glucagon (Glucagen) 1 mg Q15M PRN IM DECREASED GLUCOSE; Start 07/26/18 at 14:30 Glucose (Glutose) 15 gm Q15M PRN BUCCAL DECREASED GLUCOSE; Start 07/26/18 at 14:30 Cefepime HCl 50 ml @ 100 mls/hr Q24H IVPB Last administered on 07/30/18 21:16; Admin Dose 100 MLS/HR; Start 07/28/18 at 21:00 Heparin Sodium (Porcine) (Heparin (1000 Units/ml)) 3,000 unit AFTER DIALYSIS CATHETER Last administered on 07/29/18 12:27; Admin Dose 3,000 UNIT; Start 07/29/18 at 09:30 Famotidine (Pepcid) 20 mg DAILY PO Last administered on 07/31/18 08:26; Admin Dose 20 MG; Start 07/31/18 at 09:00 Heparin Sodium (Porcine) (Heparin (5000 Units/1ml)) 5,000 unit BID SC ; Start 08/01/18 at 09:00 NATALIA CARTAGENA NP Jul 31, 2018 16:53
[2018-07-31] MEDS: CEFEPIME 1GM/50 ML IVPB SCH (21:25)
[2018-07-31] MEDS: ATORVASTATIN 40 MG TAB PO SCH (21:25)
[2018-08-01] VITALS (49 sets, daily range): BP systolic 115–178; BP diastolic 48–80; PULSE 60–66; RESP 12–26
[2018-08-01] MEDS: INSULIN ASPART [NOVOLOG] 3 ML PEN SC SCH ×6 (01:00→21:16)
--- NOTE | 2018-08-01 07:38 | PN ---
DATE: 07/31/2018 ADDENDUM I spoke with patient's daughter, Lillian Arguello telephone number [phone]. I explained to her the pa waylon's current condition. The patient remains intubated since 07/19/2018, and patient also had deve loped acute kidney injury requiring hemodialysis. According to daughter, the patient prior to admiss ion was wheelchair bound but was mentally awake, alert, and communicative. I explained to her about code status, comfort care and hospice care. She requested that patient remains FULL CODE and also wa nted to proceed with hemodialysis as necessary. I also explained that patient most likely will requi re tracheostomy and G-tube placement. She wants to proceed with tracheostomy and G-tube if necessary and hemodialysis as needed. Approximately 35 minutes were spent. Dictated By: RUBÉN BENITO MD AB/NTS Conf#: [id number] DID#: [id number] CC: HARLEY STARR MD;*EndCC*
[2018-08-01] MEDS: DOCUSATE SODIUM 10 MG/ML (10ML CUP) GTB SCH ×2 (08:23→21:13)
--- NOTE | 2018-08-01 08:39 | CONS ---
Date/Time of Note Date/Time of Note DATE: 08/01/18 TIME: 08:37 Assessment/Plan Assessment/Plan Assessment/Plan Chest x-ray was reviewed from today which is again showing patchy bilateral pneumonia with possibly some element of pulmonary edema. Ventilator setting; AC of 16, tidal volume 500, PEEP of 5, 30% FiO2. Assessment recommendations; 1. Patient admitted with severe bilateral community acquired pneumonia leading to respiratory failure requiring intubation. There has been significant improvement in oxygenation. 2. Element of acute renal failure now requiring hemodialysis with some element of pulmonary edema. 3. History of gout. 4. History of muscle spasms. 5. BPH. 6. Anemia and thrombocytopenia. 7. Encephalopathy likely toxic/metabolic in etiology. Continue current supportive care. Prognosis appears poor. Weaning from ventilator with depend upon adequate mental status recovery. Hemodialysis per head of science. Result Diagram: 08/01/18 0453 08/01/18 0453 Results 24hrs Laboratory Tests Test 07/31/18 09:00 07/31/18 11:17 07/31/18 11:35 07/31/18 13:15 Stool Occult Blood NEGATIVE Troponin I 0.381 *H Lab Scanned Report REFERENCE LAB Bedside Glucose 174 Test 07/31/18 16:50 07/31/18 17:59 07/31/18 22:00 08/01/18 00:33 Bedside Glucose 159 164 Troponin I 0.357 *H 0.384 *H Test 08/01/18 01:48 08/01/18 04:14 08/01/18 04:53 Bedside Glucose 134 Ammonia 11 White Blood Count 11.6 H Red Blood Count 2.63 L Hemoglobin 8.4 L Hematocrit 24.2 L Mean Corpuscular 92.0 Volume Mean Corpuscular 31.9 Hemoglobin Mean Corpuscular 34.7 Hemoglobin Concent Red Cell Distribution 14.5 Width Platelet Count 139 L Mean Platelet Volume 13.6 H Immature Granulocytes 1.000 H % Neutrophils % 85.3 H Lymphocytes % 5.3 L Monocytes % 6.5 Eosinophils % 1.7 Basophils % 0.2 Nucleated Red Blood 0.0 Cells % Immature Granulocytes 0.120 H # Neutrophils # 9.9 H Lymphocytes # 0.6 L Monocytes # 0.8 Eosinophils # 0.2 Basophils # 0.0 Nucleated Red Blood 0.0 Cells # Sodium Level 135 Potassium Level 4.1 Chloride Level 100 Carbon Dioxide Level 21 Anion Gap 14 H Blood Urea Nitrogen 107 #H Creatinine 3.99 H Est Glomerular Filtrat Rate mL/min Glucose Level 132 Calcium Level 8.6 Consultation Date/Type/Reason Admit Date/Time Jul 18, 2018 at 16:57 Initial Consult Date 07/19/18 Type of Consult Pulmonary/critical care History presenting any; patient is an 83-year-old male who was sent over to the hospital from physician's office because of severe shortness of breath. Patient has been diagnosed with bilateral pneumonia and has been admitted to ICU. By the time I saw him, patient is on BiPAP at high FiO2 with severe tachypnea. Chest x-ray was reviewed which is showing severe bilateral pneumonia. It was decided to electively intubate the patient. Past medical history; 1. Apparently mild chronic renal insufficiency. 2. Hypertension. 3. BPH. 4. Hyperlipidemia. 5. History of muscle spasm. Medications; reviewed. Allergies; none. Social history; non-smoker. Family history, occupational history not available. Review of system; unable to be obtained. Because of tachypnea. General exam; elderly male, on BiPAP, lethargic. Tachypneic. Requesting Provider: HARLEY STARR 24 HR Interval Summary Free Text/Dictation Patient's condition remains critical but hemodynamically stable. Patient remains essentially unresponsive. General exam; elderly male, orally intubated, unresponsive, currently in no distress. Exam/Review of Systems Vital Signs Vitals Vital Signs Date Temp Pulse Resp B/P (MAP) Pulse Ox O2 O2 Flow FiO2 Time Delivery Rate 08/01/18 61 20 146/61 96 06:00 (89) 08/01/18 98.9 05:00 08/01/18 30 04:55 07/31/18 Mechanical 18:00 Ventilator Intake and Output 07/31/18 07/31/18 08/01/18 1414:59 22:59 06:59 IntakeIntake Total 380 ml 240 ml OutputOutput Total 40 ml 0 ml BalanceBalance 340 ml 240 ml Exam H EENT exam; supple neck, no JVD. No lymphadenopathy. Midline trachea. No thyromegaly. Orally intubated. Patient has multiple carious teeth. Pupils are small bilaterally. Chest exam; diminished but clear breath sounds. S1-S2 audible, no murmurs. 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 Abdomen exam; soft, no organomegaly. Bowel sounds audible. Nondistended. Extremity exam; no edema. 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 Medications Medications Current Medications IV Flush (NS 3 ml) 3 ml PER PROTOCOL IV ; Start 07/18/18 at 17:30 Ondansetron HCl (Zofran Inj) 4 mg Q6H PRN IV NAUSEA AND/OR VOMITING; Start 07/18/18 at 17:30 Acetaminophen (Tylenol Tab) 650 mg Q6H PRN PO PAIN LEVEL 1-3 OR FEVER; Start 07/18/18 at 17:30 Atorvastatin Calcium (Lipitor) 40 mg QHS PO Last administered on 07/31/18 21:25; Admin Dose 40 MG; Start 07/18/18 at 21:00 Baclofen (Lioresal) 10 mg BID PO Last administered on 07/31/18 21:26; Admin Dose 10 MG; Start 07/18/18 at 21:00 Docusate Sodium (Colace) 100 mg BID PRN PO CONSTIPATION; Start 07/18/18 at 17:30 Doxazosin Mesylate (Cardura) 4 mg HS PO Last administered on 07/31/18 08:26; Admin Dose 4 MG; Start 07/18/18 at 21:00 Finasteride (Proscar) 5 mg DAILY PO Last administered on 07/31/18 08:26; Admin Dose 5 MG; Start 07/19/18 at 09:00 Haloperidol (Haldol) 5 mg Q2H PRN IM AGITATION Last administered on 07/19/18at 02:37; Admin Dose 5 MG; Start 07/18/18 at 23:30 Propofol 100 ml @ 1.909 mls/ hr Q12H IV Last administered on 07/29/18 21:42; Admin Dose 7.637 MLS/HR; Start 07/19/18 at 14:00; Status Hold Allopurinol (Zyloprim) 100 mg DAILY PO Last administered on 07/31/18 08:26; Admin Dose 100 MG; Start 07/21/18 at 09:00 Docusate Sodium (Colace Liquid Cup) 100 mg BID GTB Last administered on 07/30/18 21:16; Admin Dose 100 MG; Start 07/20/18 at 21:00 Fentanyl 100 ml @ 2.5 mls/hr TITRATE IV Last administered on 07/26/18at 04:53; Admin Dose 5 MLS/HR; Start 07/21/18 at 08:00; Status Hold Morphine Sulfate (morphine) 6 mg Q4H PRN PO PAIN LEVEL 7-10; Start 07/21/18 at 11:00 Nifedipine (Procardia) 20 mg TID NGT Last administered on 07/31/18 21:25; Admin Dose 20 MG; Start 07/23/18 at 14:30 Lorazepam (Ativan) 1 mg Q4H PRN GTB AGITATION Last administered on 07/31/18 21:25; Admin Dose 1 MG; Start 07/24/18 at 11:00 Insulin Aspart (Novolog Insulin Pen) NOVOLOG *MILD* ALGORI... Q4 SC Last ad ministered on 07/31/18 21:00; Admin Dose 1 UNIT; Start 07/26/18 at 17:00 Miscellaneous Information 1 ea NOTE XX ; Start 07/26/18 at 14:30 Glucose (Glutose) 15 gm Q15M PRN PO DECREASED GLUCOSE; Start 07/26/18 at 14:30 Glucose (Glutose) 22.5 gm Q15M PRN PO DECREASED GLUCOSE; Start 07/26/18 at 14 :30 Dextrose (D50w Syringe) 25 ml Q15M PRN IV DECREASED GLUCOSE; Start 07/26/18 at 14:30 Dextrose (D50w Syringe) 50 ml Q15M PRN IV DECREASED GLUCOSE; Start 07/26/18 at 14:30 Glucagon (Glucagen) 1 mg Q15M PRN IM DECREASED GLUCOSE; Start 07/26/18 at 14:30 Glucose (Glutose) 15 gm Q15M PRN BUCCAL DECREASED GLUCOSE; Start 07/26/18 at 14:30 Cefepime HCl 50 ml @ 100 mls/hr Q24H IVPB Last administered on 07/31/18 21:25; Admin Dose 100 MLS/HR; Start 07/28/18 at 21:00 Heparin Sodium (Porcine) (Heparin (1000 Units/ml)) 3,000 unit AFTER DIALYSIS CATHETER Last administered on 07/29/18 12:27; Admin Dose 3,000 UNIT; Start 07/29/18 at 09:30 Famotidine (Pepcid) 20 mg DAILY PO Last administered on 07/31/18 08:26; Admin Dose 20 MG; Start 07/31/18 at 09:00 Heparin Sodium (Porcine) (Heparin (5000 Units/1ml)) 5,000 unit BID SC ; Start 08/01/18 at 09:00 PATIENCE MCDONNELL Aug 01, 2018 08:39
[2018-08-01] MEDS: HEPARIN 5,000 UNIT/1 ML VIAL SC SCH ×2 (08:42→21:15)
--- NOTE | 2018-08-01 10:05 | CONS ---
Date/Time of Note Date/Time of Note DATE: 08/01/18 TIME: 09:55 Assessment/Plan Assessment/Plan Hospital Course IMPRESSION: 1. Hypertension, uncontrolled. 2. History of permanent pacemaker. No signs of dysfunction at this time, primarily ventricular pacing. 3. History of percutaneous transluminal coronary angioplasty and stent placement. 4. Respiratory failure, status post intubation. 5. End-stage renal disease on hemodialysis. 6. Anemia. 7. Leukocytosis with a history of benign prostatic hypertrophy. 8. Pneumonia, bilateral. 9. Dementia. 10. Encephalopathy. REcc: -ICU -Continue nifedipine and follow labile BP closely -Continue statin -not on asa due to anemia -trend cardiac enzymes -on SQ heparin and thus will hold on asa at this time given worsening anemia -HD for volume removal Result Diagram: 08/01/18 0453 08/01/18 0453 Results 24hrs Laboratory Tests Test 07/31/18 11:17 07/31/18 11:35 07/31/18 13:15 07/31/18 16:50 Troponin I 0.381 *H Lab Scanned REFERENCE LAB Report Bedside Glucose 174 159 Test 07/31/18 17:59 07/31/18 22:00 08/01/18 00:33 08/01/18 01:48 Troponin I 0.357 *H 0.384 *H Bedside Glucose 164 134 Test 08/01/18 04:14 08/01/18 04:53 08/01/18 08:36 08/01/18 08:39 Ammonia 11 White Blood Count 11.6 H Red Blood Count 2.63 L Hemoglobin 8.4 L Hematocrit 24.2 L Mean Corpuscular 92.0 Volume Mean Corpuscular 31.9 Hemoglobin Mean Corpuscular 34.7 Hemoglobin Concen t Red Cell 14.5 Distribution Width Platelet Count 139 L Mean Platelet 13.6 H Volume Immature 1.000 H Granulocytes % Neutrophils % 85.3 H Lymphocytes % 5.3 L Monocytes % 6.5 Eosinophils % 1.7 Basophils % 0.2 Nucleated Red 0.0 Blood Cells % Immature 0.120 H Granulocytes # Neutrophils # 9.9 H Lymphocytes # 0.6 L Monocytes # 0.8 Eosinophils # 0.2 Basophils # 0.0 Nucleated Red 0.0 Blood Cells # Sodium Level 135 Potassium Level 4.1 Chloride Level 100 Carbon Dioxide 21 Level Anion Gap 14 H Blood Urea 107 #H Nitrogen Creatinine 3.99 H Est Glomerular Filtrat Rate mL/min Glucose Level 132 Calcium Level 8.6 Blood Gas Blood arterial Specimen Source Arterial Blood 08/01/2018 8:50:47 Date Drawn AM Arterial Blood pH 7.471 H (Temp corrected) Arterial Blood 29.2 L pCO2 (Temp correct) Arterial Blood 89.4 pO2 (Temp corrected) Arterial Blood 20.8 L HCO3 Arterial Blood -2.2 Base Excess Arterial Blood 96.0 Oxygen Saturation Margarito Test ACCEPTAB Arterial Blood Right Radial Gas Puncture Site Arterial 0.3 Blood Carboxyhemo globin Arterial Blood 0.1 Methemoglobin Blood Gas A-a O2 90.2 H Differential Oxyhemoglobin 95.6 Percent Blood Gas 37.0 Temperature Blood Gas 16.0 Respiration Rate Blood Gas Actual 21 Respiration Rate Blood Gas VENT - AC Modality FiO2 30.0 Blood Gas Tidal 500.0 Volume Blood Gas Low 5.0 PEEP Setting Blood Gas TM Notified Whom Blood Gas 08/01/2018 9:05:33 Notified Time AM Bedside Glucose 155 Consultation Date/Type/Reason Admit Date/Time Jul 18, 2018 at 16:57 Initial Consult Date 07/19/18 Type of Consult cardiology Reason for Consultation Positive troponin Requesting Provider: HARLEY STARR Exam/Review of Systems Vital Signs Vitals Vital Signs Date Temp Pulse Resp B/P (MAP) Pulse Ox O2 O2 Flow FiO2 Time Delivery Rate 08/01/18 30 08:00 08/01/18 61 20 146/61 96 06:00 (89) 08/01/18 98.9 05:00 07/31/18 Mechanical 18:00 Ventilator Intake and Output 07/31/18 07/31/18 08/01/18 1515:00 23:00 07:00 IntakeIntake Total 380 ml 205 ml OutputOutput Total 30 ml 0 ml BalanceBalance 350 ml 205 ml Exam Review of Systems: CONSTITUTIONAL: No fevers, chills. PULMONARY: intubated CARDIOVASCULAR: No obvious chest pain/palpitations GASTROINTESTINAL: No nausea/vomiting. GENITOURINARY: No hematuria/dysuria. MUSCULOSKELETAL: No obvious myagias/arthalgias. PSYCHIATRIC: The patient denies depression. NEUROLOGIC:sedated Constitutional: other (sedated) Psych: no complaints Head: normocephalic ENMT: mucosa pink and moist, intubated Neck: supple, jvd (9 cm water) Respiratory: other (upper airway rhoncherous sounds) Cardiovascular: regular rate and rhythm Gastrointestinal: soft, non-tender Musculoskeletal: muscle weakness (mild generalized) Extremities: edema (trace/B) Neurological: other (No focal deficits) Medications Medications Current Medications IV Flush (NS 3 ml) 3 ml PER PROTOCOL IV ; Start 07/18/18 at 17:30 Ondansetron HCl (Zofran Inj) 4 mg Q6H PRN IV NAUSEA AND/OR VOMITING; Start 07/18/18 at 17:30 Acetaminophen (Tylenol Tab) 650 mg Q6H PRN PO PAIN LEVEL 1-3 OR FEVER; Start 07/18/18 at 17:30 Atorvastatin Calcium (Lipitor) 40 mg QHS PO Last administered on 07/31/18 21:25; Admin Dose 40 MG; Start 07/18/18 at 21:00 Baclofen (Lioresal) 10 mg BID PO Last administered on 07/31/18 21:26; Admin Dose 10 MG; Start 07/18/18 at 21:00 Docusate Sodium (Colace) 100 mg BID PRN PO CONSTIPATION; Start 07/18/18 at 17:30 Doxazosin Mesylate (Cardura) 4 mg HS PO Last administered on 07/31/18 08:26; Admin Dose 4 MG; Start 07/18/18 at 21:00 Finasteride (Proscar) 5 mg DAILY PO Last administered on 07/31/18 08:26; Admin Dose 5 MG; Start 07/19/18 at 09:00 Haloperidol (Haldol) 5 mg Q2H PRN IM AGITATION Last administered on 07/19/18at 02:37; Admin Dose 5 MG; Start 07/18/18 at 23:30 Propofol 100 ml @ 1.909 mls/ hr Q12H IV Last administered on 07/29/18 21:42; Admin Dose 7.637 MLS/HR; Start 07/19/18 at 14:00; Status Hold Allopurinol (Zyloprim) 100 mg DAILY PO Last administered on 07/31/18 08:26; Admin Dose 100 MG; Start 07/21/18 at 09:00 Docusate Sodium (Colace Liquid Cup) 100 mg BID GTB Last administered on 07/30/18 21:16; Admin Dose 100 MG; Start 07/20/18 at 21:00 Fentanyl 100 ml @ 2.5 mls/hr TITRATE IV Last administered on 07/26/18at 04:53; Admin Dose 5 MLS/HR; Start 07/21/18 at 08:00; Status Hold Morphine Sulfate (morphine) 6 mg Q4H PRN PO PAIN LEVEL 7-10; Start 07/21/18 at 11:00 Nifedipine (Procardia) 20 mg TID NGT Last administered on 07/31/18 21:25; Admin Dose 20 MG; Start 07/23/18 at 14:30 Lorazepam (Ativan) 1 mg Q4H PRN GTB AGITATION Last administered on 07/31/18 21:25; Admin Dose 1 MG; Start 07/24/18 at 11:00 Insulin Aspart (Novolog Insulin Pen) NOVOLOG *MILD* ALGORI... Q4 SC Last administered on 08/01/18 08:43; Admin Dose 1 UNIT; Start 07/26/18 at 17:00 Miscellaneous Information 1 ea NOTE XX ; Start 07/26/18 at 14:30 Glucose (Glutose) 15 gm Q15M PRN PO DECREASED GLUCOSE; Start 07/26/18 at 14:30 Glucose (Glutose) 22.5 gm Q15M PRN PO DECREASED GLUCOSE; Start 07/26/18 at 14:30 Dextrose (D50w Syringe) 25 ml Q15M PRN IV DECREASED GLUCOSE; Start 07/26/18 at 14:30 Dextrose (D50w Syringe) 50 ml Q15M PRN IV DECREASED GLUCOSE; Start 07/26/18 at 14:30 Glucagon (Glucagen) 1 mg Q15M PRN IM DECREASED GLUCOSE; Start 07/26/18 at 14:30 Glucose (Glutose) 15 gm Q15M PRN BUCCAL DECREASED GLUCOSE; Start 07/26/18 at 14:30 Cefepime HCl 50 ml @ 100 mls/hr Q24H IVPB Last administered on 07/31/18 21:25; Admin Dose 100 MLS/HR; Start 07/28/18 at 21:00 Heparin Sodium (Porcine) (Heparin (1000 Units/ml)) 3,000 unit AFTER DIALYSIS CATHETER Last administered on 07/29/18 12:27; Admin Dose 3,000 UNIT; Start 07/29/18 at 09:30 Famotidine (Pepcid) 20 mg DAILY PO Last administered on 07/31/18at 08:26; Admin Dose 20 MG; Start 07/31/18 at 09:00 Heparin Sodium (Porcine) (Heparin (5000 Units/1ml)) 5,000 unit BID SC Last administered on 08/01/18at 08:42; Admin Dose 5,000 UNIT; Start 08/01/18 at 09:00 PETRA DELA CRUZ Aug 01, 2018 10:05
[2018-08-01] MEDS ORDERED: MANNITOL 25% 50 ML INJ IV* STA (10:51)
[2018-08-01] MEDS ORDERED: MANNITOL 20% IV SCH (11:30)
[2018-08-01] MEDS ORDERED: MANNITOL 20% 125 ML IV SCH (11:30)
[2018-08-01] MEDS ORDERED: METOPROLOL 5 MG INJ IV SCH (12:00)
--- NOTE | 2018-08-01 12:29 | CONS ---
Date/Time of Note Date/Time of Note DATE: 08/01/18 TIME: 12:27 Assessment/Plan Assessment/Plan Hospital Course Patient is in hemodialysis, looks comfortable afebrile temperature 98.7 pulse 60 respirations 20 blood pressure 143/67 saturation 100 on 30 FiO2 WBC 11.6 H&H 8.4 and 24.2 platelets 139 neutrophils 85.3 BUN 107 creatinine 3.99 Indwelling's: Endotracheal tube: NG tube: Owens catheter: Right upper extremity PICC line, permanent pacemaker, right femoral Vinnie catheter Antimicrobials: Cefepime Microbiology: Cultures since admission had been negative Chest x-ray 07/30/18 revealed bilateral diffuse pulmonary infiltrates Physical examination: Chronically ill-appearing elderly man who is intubated in no distress. Head atraumatic normocephalic. Sclera nonicteric. Neck is supple chest rise symmetrical breath sounds diminished bases. Heart: S1-S2. Abdomen soft bowel sounds hypoactive. Extremities with dependent edema Assessment: 1. Sepsis, resolving status post shock 2. Acute hypoxemic respiratory failure 3. Severe bilateral pneumonia 4. Encephalopathy, likely toxic metabolic 5. Anemia 6. Acute renal failure, started on hemodialysis Plan: Hemodynamically stable, continue present care, antibiotics for couple more days, vent management per pulmonary Result Diagram: 08/01/18 0453 08/01/18 0453 Results 24hrs Laboratory Tests Test 07/31/18 13:15 07/31/18 16:50 07/31/18 17:59 07/31/18 22:00 Bedside Glucose 174 159 164 Troponin I 0.357 *H Test 08/01/18 00:33 08/01/18 01:48 08/01/18 04:14 08/01/18 04:53 Troponin I 0.384 *H Bedside Glucose 134 Ammonia 11 White Blood Count 11.6 H Red Blood Count 2.63 L Hemoglobin 8.4 L Hematocrit 24.2 L Mean Corpuscular 92.0 Volume Mean Corpuscular 31.9 Hemoglobin Mean Corpuscular 34.7 Hemoglobin Concent Red Cell 14.5 Distribution Width Platelet Count 139 L Mean Platelet 13.6 H Volume Immature 1.000 H Granulocytes % Neutrophils % 85.3 H Lymphocytes % 5.3 L Monocytes % 6.5 Eosinophils % 1.7 Basophils % 0.2 Nucleated Red 0.0 Blood Cells % Immature 0.120 H Granulocytes # Neutrophils # 9.9 H Lymphocytes # 0.6 L Monocytes # 0.8 Eosinophils # 0.2 Basophils # 0.0 Nucleated Red 0.0 Blood Cells # Sodium Level 135 Potassium Level 4.1 Chloride Level 100 Carbon Dioxide 21 Level Anion Gap 14 H Blood Urea 107 #H Nitrogen Creatinine 3.99 H Est Glomerular Filtrat Rate mL/min Glucose Level 132 Calcium Level 8.6 Test 08/01/18 08:36 08/01/18 08:39 Blood Gas Specimen Blood arterial Source Arterial Blood 08/01/2018 8:50:47 Date Drawn AM Arterial Blood pH 7.471 H (Temp corrected) Arterial Blood 29.2 L pCO2 (Temp correct) Arterial Blood pO2 89.4 (Temp corrected) Arterial Blood 20.8 L HCO3 Arterial Blood -2.2 Base Excess Arterial Blood 96.0 Oxygen Saturation Margarito Test ACCEPTAB Arterial Blood Gas Right Radial Puncture Site Arterial 0.3 Blood Carboxyhemog lobin Arterial Blood 0.1 Methemoglobin Blood Gas A-a O2 90.2 H Differential Oxyhemoglobin 95.6 Percent Blood Gas 37.0 Temperature Blood Gas 16.0 Respiration Rate Blood Gas Actual 21 Respiration Rate Blood Gas Modality VENT - AC FiO2 30.0 Blood Gas Tidal 500.0 Volume Blood Gas Low PEEP 5.0 Setting Blood Gas Notified TM Whom Blood Gas Notified 08/01/2018 9:05:33 Time AM Bedside Glucose 155 Consultation Date/Type/Reason Admit Date/Time Jul 18, 2018 at 16:57 Initial Consult Date 07/19/18 Type of Consult ID Requesting Provider: HARLEY STARR Exam/Review of Systems Vital Signs Vitals Vital Signs Date Temp Pulse Resp B/P (MAP) Pulse Ox O2 O2 Flow FiO2 Time Delivery Rate 08/01/18 60 12:15 08/01/18 20 100 30 11:20 08/01/18 143/67 Mechanical 10:04 (92) Ventilator 08/01/18 98.7 08:00 Intake and Output 07/31/18 07/31/18 08/01/18 1515:00 23:00 07:00 IntakeIntake Total 380 ml 255 ml 35 ml OutputOutput Total 30 ml 0 ml 0 ml BalanceBalance 350 ml 255 ml 35 ml Medications Medications Current Medications IV Flush (NS 3 ml) 3 ml PER PROTOCOL IV ; Start 07/18/18 at 17:30 Ondansetron HCl (Zofran Inj) 4 mg Q6H PRN IV NAUSEA AND/OR VOMITING; Start 07/18/18 at 17:30 Acetaminophen (Tylenol Tab) 650 mg Q6H PRN PO PAIN LEVEL 1-3 OR FEVER; Start 07/18/18 at 17:30 Atorvastatin Calcium (Lipitor) 40 mg QHS PO Last administered on 07/31/18 21:25; Admin Dose 40 MG; Start 07/18/18 at 21:00 Baclofen (Lioresal) 10 mg BID PO Last administered on 07/31/18 21:26; Admin Dose 10 MG; Start 07/18/18 at 21:00 Docusate Sodium (Colace) 100 mg BID PRN PO CONSTIPATION; Start 07/18/18 at 17:30 Doxazosin Mesylate (Cardura) 4 mg HS PO Last administered on 07/31/18 08:26; Admin Dose 4 MG; Start 07/18/18 at 21:00 Finasteride (Proscar) 5 mg DAILY PO Last administered on 07/31/18 08:26; Admin Dose 5 MG; Start 07/19/18 at 09:00 Haloperidol (Haldol) 5 mg Q2H PRN IM AGITATION Last administered on 07/19/18at 02:37; Admin Dose 5 MG; Start 07/18/18 at 23:30 Propofol 100 ml @ 1.909 mls/ hr Q12H IV Last administered on 07/29/18 21:42; Admin Dose 7.637 MLS/HR; Start 07/19/18 at 14:00; Status Hold Allopurinol (Zyloprim) 100 mg DAILY PO Last administered on 07/31/18 08:26; Admin Dose 100 MG; Start 07/21/18 at 09:00 Docusate Sodium (Colace Liquid Cup) 100 mg BID GTB Last administered on 07/30/18 21:16; Admin Dose 100 MG; Start 07/20/18 at 21:00 Fentanyl 100 ml @ 2.5 mls/hr TITRATE IV Last administered on 07/26/18at 04:53; Admin Dose 5 MLS/HR; Start 07/21/18 at 08:00; Status Hold Morphine Sulfate (morphine) 6 mg Q4H PRN PO PAIN LEVEL 7-10; Start 07/21/18 at 11:00 Nifedipine (Procardia) 20 mg TID NGT Last administered on 07/31/18 21:25; Admin Dose 20 MG; Start 07/23/18 at 14:30 Lorazepam (Ativan) 1 mg Q4H PRN GTB AGITATION Last administered on 07/31/18 21:25; Admin Dose 1 MG; Start 07/24/18 at 11:00 Insulin Aspart (Novolog Insulin Pen) NOVOLOG *MILD* ALGORI... Q4 SC Last administered on 08/01/18 08:43; Admin Dose 1 UNIT; Start 07/26/18 at 17:00 Miscellaneous Information 1 ea NOTE XX ; Start 07/26/18 at 14:30 Glucose (Glutose) 15 gm Q15M PRN PO DECREASED GLUCOSE; Start 07/26/18 at 14:30 Glucose (Glutose) 22.5 gm Q15M PRN PO DECREASED GLUCOSE; Start 07/26/18 at 14:30 Dextrose (D50w Syringe) 25 ml Q15M PRN IV DECREASED GLUCOSE; Start 07/26/18 at 14:30 Dextrose (D50w Syringe) 50 ml Q15M PRN IV DECREASED GLUCOSE; Start 07/26/18 at 14:30 Glucagon (Glucagen) 1 mg Q15M PRN IM DECREASED GLUCOSE; Start 07/26/18 at 14:30 Glucose (Glutose) 15 gm Q15M PRN BUCCAL DECREASED GLUCOSE; Start 07/26/18 at 14:30 Cefepime HCl 50 ml @ 100 mls/hr Q24H IVPB Last administered on 07/31/18 21:25; Admin Dose 100 MLS/HR; Start 07/28/18 at 21:00 Heparin Sodium (Porcine) (Heparin (1000 Units/ml)) 3,000 unit AFTER DIALYSIS CATHETER Last administered on 07/29/18 12:27; Admin Dose 3,000 UNIT; Start 07/29/18 at 09:30 Famotidine (Pepcid) 20 mg DAILY PO Last administered on 07/31/18 08:26; Admin Dose 20 MG; Start 07/31/18 at 09:00 Heparin Sodium (Porcine) (Heparin (5000 Units/1ml)) 5,000 unit BID SC Last ad ministered on 08/01/18 08:42; Admin Dose 5,000 UNIT; Start 08/01/18 at 09:00 NATALIA CARTAGENA NP Aug 01, 2018 12:29
[2018-08-01] MEDS: NIFEdipine 10 MG CAP NGT SCH ×3 (13:00→21:14)
[2018-08-01] MEDS: HEPARIN 1000 UNITS/ML 10 ML INJ CATHETER SCH (13:06)
--- NOTE | 2018-08-01 13:32 | CONS ---
Assessment/Plan Assessment/Plan Hospital Course 83 M who is admitted to the [facility] ICU for management of acute respiratory failure. CXR revealed bilateral pneumonias.. Neurology is consulted to evaluate ams.. Of note, he remains in severe MYKE requiring HD..which is a likely contributor.. Also notably, he was on sedation for a prolonged period, which has now been held x 2 days. Most clinically consistent w/ an acute and severe toxic-metabolic encephalop athy.. CTH is without acute intracranial pathology. EEG is without epileptiform activity. P: Ok to defer additional neuroimaging for now Cont to limit sedating medications where possible Other medical management and supportive care per primary Will follow clinically Result Diagram: 08/01/18 0453 08/01/18 0453 Results 24hrs Laboratory Tests Test 07/31/18 16:50 07/31/18 17:59 07/31/18 22:00 08/01/18 00:33 Bedside Glucose 159 164 Troponin I 0.357 *H 0.384 *H Test 08/01/18 01:48 08/01/18 04:14 08/01/18 04:53 08/01/18 08:36 Bedside Glucose 134 Ammonia 11 White Blood Count 11.6 H Red Blood Count 2.63 L Hemoglobin 8.4 L Hematocrit 24.2 L Mean Corpuscular 92.0 Volume Mean Corpuscular 31.9 Hemoglobin Mean Corpuscular 34.7 Hemoglobin Concent Red Cell 14.5 Distribution Width Platelet Count 139 L Mean Platelet 13.6 H Volume Immature 1.000 H Granulocytes % Neutrophils % 85.3 H Lymphocytes % 5.3 L Monocytes % 6.5 Eosinophils % 1.7 Basophils % 0.2 Nucleated Red 0.0 Blood Cells % Immature 0.120 H Granulocytes # Neutrophils # 9.9 H Lymphocytes # 0.6 L Monocytes # 0.8 Eosinophils # 0.2 Basophils # 0.0 Nucleated Red 0.0 Blood Cells # Sodium Level 135 Potassium Level 4.1 Chloride Level 100 Carbon Dioxide 21 Level Anion Gap 14 H Blood Urea 107 #H Nitrogen Creatinine 3.99 H Est Glomerular Filtrat Rate mL/min Glucose Level 132 Calcium Level 8.6 Blood Gas Specimen Blood arterial Source Arterial Blood 08/01/2018 8:50:47 Date Drawn AM Arterial Blood pH 7.471 H (Temp corrected) Arterial Blood 29.2 L pCO2 (Temp correct) Arterial Blood pO2 89.4 (Temp corrected) Arterial Blood 20.8 L HCO3 Arterial Blood -2.2 Base Excess Arterial Blood 96.0 Oxygen Saturation Margarito Test ACCEPTAB Arterial Blood Gas Right Radial Puncture Site Arterial 0.3 Blood Carboxyhemog lobin Arterial Blood 0.1 Methemoglobin Blood Gas A-a O2 90.2 H Differential Oxyhemoglobin 95.6 Percent Blood Gas 37.0 Temperature Blood Gas 16.0 Respiration Rate Blood Gas Actual 21 Respiration Rate Blood Gas Modality VENT - AC FiO2 30.0 Blood Gas Tidal 500.0 Volume Blood Gas Low PEEP 5.0 Setting Blood Gas Notified TM Whom Blood Gas Notified 08/01/2018 9:05:33 Time AM Test 08/01/18 08:39 Bedside Glucose 155 Consultation Date/Type/Reason Admit Date/Time Jul 18, 2018 at 16:57 Type of Consult Neurology Requesting Provider: HARLEY STARR Date/Time of Note DATE: 08/01/18 TIME: 13:32 24 HR Interval Summary Free Text/Dictation Continues critical care. Remains off sedation. Per report, "pt has been responsive to painful stimulus and physical turning of more extremes." Subjective hx not possible: pt non-verbal, pt critical status Exam Vital Signs Vitals Vital Signs Date Temp Pulse Resp B/P (MAP) Pulse Ox O2 O2 Flow FiO2 Time Delivery Rate 08/01/18 60 12:56 08/01/18 99.1 16 137/64 100 Mechanical 12:00 (88) Ventilator 08/01/18 30 11:20 Intake and Output 07/31/18 07/31/18 08/01/18 1515:00 23:00 07:00 IntakeIntake Total 380 ml 255 ml 35 ml OutputOutput Total 30 ml 0 ml 0 ml BalanceBalance 350 ml 255 ml 35 ml Exam PE: Gen Appearance: No Apparent Distress HEENT: Intubated Cardiovascular: Regular rate Respiratory: mechanically ventilated; tachypneic Abdomen: Soft Extremities: Dry NE: The patient was comatose. Did not open eyes or grimace to noxious stimuli. Respiratory rate did increase in response to caloric testing. Cranial nerve examination was limited by mental status. Pupils were equal and unreactive to light. There was no afferent pupillary defect. Funduscopic examination was limited. Face was grossly symmetric, w/out present corneal and cough reflexes. Tone was normal. Muscle bulk was normal. I did not see fasciculations. The patient did not withdraw to noxious stimulation. Coordination and gait testing was limited by mental status. Arm and leg reflexes were symmetric. Chacon's sign was absent. Plantar responses were mute. RIKI MAHAN NP Aug 01, 2018 13:32 JAMMIE AMEZCUA Aug 01, 2018 14:19
[2018-08-01] MEDS: FINASTERIDE 5 MG TAB PO SCH (13:50)
[2018-08-01] MEDS: BACLOFEN 10 MG TAB PO SCH ×2 (13:51→21:14)
[2018-08-01] MEDS: ALLOPURINOL 100 MG TAB PO SCH (13:51)
[2018-08-01] MEDS: FAMOTIDINE 20 MG TAB PO SCH (13:51)
[2018-08-01] MEDS: BALSAM PERU/CASTOR OIL 60 GM TUBE TOP SCH ×2 (13:52→21:17)
--- NOTE | 2018-08-01 17:14 | CONS ---
Date/Time of Note Date/Time of Note DATE: 08/01/18 TIME: 17:14 Assessment/Plan Assessment/Plan Assessment/Plan 1. Acute renal failure due to ATN from sepsis 2. Sepsis due to PNA 3. Acute Hypoxemic respiratory failure due to PNA - Intubated on ventilator 4. H/o CAD s/p previous stent placement 5. h/o Pacemaker placement 6. H/o HTN 7. H/o HL 8. H/o Chronic back pain, Prostate CA 9. Hypernatremia - now resolved 10. Hyperuricemia, on allopurinol Plan:- started on HD on 07/28/18, s/p Hd today- 2.5 L removed, pt will be on MWF schedule HIV, Hepatitis panel negative Pulmonary to manage ventilator- pt remains intubated on ventilator - After pt weaned off ventilator we will decide about longterm HD and permacath placement will follow up Result Diagram: 08/01/18 0453 08/01/18 0453 Results 24hrs Laboratory Tests Test 07/31/18 17:59 07/31/18 22:00 08/01/18 00:33 08/01/18 01:48 Troponin I 0.357 *H 0.384 *H Bedside Glucose 164 134 Test 08/01/18 04:14 08/01/18 04:53 08/01/18 08:36 08/01/18 08:39 Ammonia 11 White Blood Count 11.6 H Red Blood Count 2.63 L Hemoglobin 8.4 L Hematocrit 24.2 L Mean Corpuscular 92.0 Volume Mean Corpuscular 31.9 Hemoglobin Mean Corpuscular 34.7 Hemoglobin Concent Red Cell 14.5 Distribution Width Platelet Count 139 L Mean Platelet 13.6 H Volume Immature 1.000 H Granulocytes % Neutrophils % 85.3 H Lymphocytes % 5.3 L Monocytes % 6.5 Eosinophils % 1.7 Basophils % 0.2 Nucleated Red 0.0 Blood Cells % Immature 0.120 H Granulocytes # Neutrophils # 9.9 H Lymphocytes # 0.6 L Monocytes # 0.8 Eosinophils # 0.2 Basophils # 0.0 Nucleated Red 0.0 Blood Cells # Sodium Level 135 Potassium Level 4.1 Chloride Level 100 Carbon Dioxide 21 Level Anion Gap 14 H Blood Urea 107 #H Nitrogen Creatinine 3.99 H Est Glomerular Filtrat Rate mL/min Glucose Level 132 Calcium Level 8.6 Blood Gas Specimen Blood arterial Source Arterial Blood 08/01/2018 8:50:47 Date Drawn AM Arterial Blood pH 7.471 H (Temp corrected) Arterial Blood 29.2 L pCO2 (Temp correct) Arterial Blood pO2 89.4 (Temp corrected) Arterial Blood 20.8 L HCO3 Arterial Blood -2.2 Base Excess Arterial Blood 96.0 Oxygen Saturation Margarito Test ACCEPTAB Arterial Blood Gas Right Radial Puncture Site Arterial 0.3 Blood Carboxyhemog lobin Arterial Blood 0.1 Methemoglobin Blood Gas A-a O2 90.2 H Differential Oxyhemoglobin 95.6 Percent Blood Gas 37.0 Temperature Blood Gas 16.0 Respiration Rate Blood Gas Actual 21 Respiration Rate Blood Gas Modality VENT - AC FiO2 30.0 Blood Gas Tidal 500.0 Volume Blood Gas Low PEEP 5.0 Setting Blood Gas Notified TM Whom Blood Gas Notified 08/01/2018 9:05:33 Time AM Bedside Glucose 155 Test 08/01/18 13:59 08/01/18 16:02 Bedside Glucose 137 162 Consultation Date/Type/Reason Admit Date/Time Jul 18, 2018 at 16:57 Initial Consult Date 07/19/18 Type of Consult NEPHROLOGY Requesting Provider: HARLEY STARR 24 HR Interval Summary Free Text/Dictation pt remains intubated, not waking up off sedation , BP stable, afebrile Exam/Review of Systems Vital Signs Vitals Vital Signs Date Temp Pulse Resp B/P (MAP) Pulse Ox O2 O2 Flow FiO2 Time Delivery Rate 08/01/18 98.1 64 21 130/55 99 Mechanical 16:00 (80) Ventilator 08/01/18 30 15:40 Intake and Output 07/31/18 07/31/18 08/01/18 1515:00 23:00 07:00 IntakeIntake Total 380 ml 255 ml 35 ml OutputOutput Total 30 ml 0 ml 0 ml BalanceBalance 350 ml 255 ml 35 ml Exam Constitutional: non-verbal, other (Intubated on ventilator ) Eyes: other (ET tube in place ), NG tube place Respiratory: diminished breath sounds, other (Bilateral Coarse BS+) Cardiovascular: regular rate and rhythm Gastrointestinal: soft, non-tender Musculoskeletal: muscle weakness, swelling, other (Bilateral UE edema ) Neurological: other (Intubated, sedated on ventilator ) Medications Medications Current Medications IV Flush (NS 3 ml) 3 ml PER PROTOCOL IV ; Start 07/18/18 at 17:30 Ondansetron HCl (Zofran Inj) 4 mg Q6H PRN IV NAUSEA AND/OR VOMITING; Start 07/18/18 at 17:30 Acetaminophen (Tylenol Tab) 650 mg Q6H PRN PO PAIN LEVEL 1-3 OR FEVER; Start 07/18/18 at 17:30 Atorvastatin Calcium (Lipitor) 40 mg QHS PO Last administered on 07/31/18 21:25; Admin Dose 40 MG; Start 07/18/18 at 21:00 Baclofen (Lioresal) 10 mg BID PO Last administered on 08/01/18 13:51; Admin Dose 10 MG; Start 07/18/18 at 21:00 Docusate Sodium (Colace) 100 mg BID PRN PO CONSTIPATION; Start 07/18/18 at 17:30 Doxazosin Mesylate (Cardura) 4 mg HS PO Last administered on 07/31/18 08:26; Admin Dose 4 MG; Start 07/18/18 at 21:00 Finasteride (Proscar) 5 mg DAILY PO Last administered on 08/01/18 13:50; Admin Dose 5 MG; Start 07/19/18 at 09:00 Haloperidol (Haldol) 5 mg Q2H PRN IM AGITATION Last administered on 07/19/18at 02:37; Admin Dose 5 MG; Start 07/18/18 at 23:30 Propofol 100 ml @ 1.909 mls/ hr Q12H IV Last administered on 07/29/18 21:42; Admin Dose 7.637 MLS/HR; Start 07/19/18 at 14:00; Status Hold Allopurinol (Zyloprim) 100 mg DAILY PO Last administered on 08/01/18 13:51; Admin Dose 100 MG; Start 07/21/18 at 09:00 Docusate Sodium (Colace Liquid Cup) 100 mg BID GTB Last administered on 07/30/18 21:16; Admin Dose 100 MG; Start 07/20/18 at 21:00 Fentanyl 100 ml @ 2.5 mls/hr TITRATE IV Last administered on 07/26/18at 04:53; Admin Dose 5 MLS/HR; Start 07/21/18 at 08:00; Status Hold Morphine Sulfate (morphine) 6 mg Q4H PRN PO PAIN LEVEL 7-10; Start 07/21/18 at 11:00 Nifedipine (Procardia) 20 mg TID NGT Last administered on 08/01/18 13:51; Admin Dose 20 MG; Start 07/23/18 at 14:30 Lorazepam (Ativan) 1 mg Q4H PRN GTB AGITATION Last administered on 07/31/18 21:25; Admin Dose 1 MG; Start 07/24/18 at 11:00 Insulin Aspart (Novolog Insulin Pen) NOVOLOG *MILD* ALGORI... Q4 SC Last admin istered on 08/01/18 16:06; Admin Dose 1 UNIT; Start 07/26/18 at 17:00 Miscellaneous Information 1 ea NOTE XX ; Start 07/26/18 at 14:30 Glucose (Glutose) 15 gm Q15M PRN PO DECREASED GLUCOSE; Start 07/26/18 at 14:30 Glucose (Glutose) 22.5 gm Q15M PRN PO DECREASED GLUCOSE; Start 07/26/18 at 14:30 Dextrose (D50w Syringe) 25 ml Q15M PRN IV DECREASED GLUCOSE; Start 07/26/18 at 14:30 Dextrose (D50w Syringe) 50 ml Q15M PRN IV DECREASED GLUCOSE; Start 07/26/18 at 14:30 Glucagon (Glucagen) 1 mg Q15M PRN IM DECREASED GLUCOSE; Start 07/26/18 at 14:30 Glucose (Glutose) 15 gm Q15M PRN BUCCAL DECREASED GLUCOSE; Start 07/26/18 at 14:30 Cefepime HCl 50 ml @ 100 mls/hr Q24H IVPB Last administered on 07/31/18 21:25; Admin Dose 100 MLS/HR; Start 07/28/18 at 21:00 Heparin Sodium (Porcine) (Heparin (1000 Units/ml)) 3,000 unit AFTER DIALYSIS CATHETER Last administered on 08/01/18 13:06; Admin Dose 3,000 UNIT; Start 07/29/18 at 09:30 Famotidine (Pepcid) 20 mg DAILY PO Last administered on 08/01/18 13:51; Admin Dose 20 MG; Start 07/31/18 at 09:00 Heparin Sodium (Porcine) (Heparin (5000 Units/1ml)) 5,000 unit BID SC Last administered on 1/4/19at 08:42; Admin Dose 5,000 UNIT; Start 08/01/18 at 09:00 FELICIANO RAMIREZ MD Aug 01, 2018 17:14
--- NOTE | 2018-08-01 17:27 | PN ---
Date/Time of Note Date/Time of Note DATE: 08/01/18 TIME: 17:25 Assessment/Plan Lines/Catheters IV Catheter Type (from Nrsg): Vinnie Owens in Place (from Nrsg): Yes Assessment/Plan Assessment/Plan SP dialysis cath placement Will continue Dialysis Subjective 24 Hr Interval Summary Constitutional: improved Pain Control: mild Exam/Review of Systems Vital Signs Vitals Vital Signs Date Temp Pulse Resp B/P (MAP) Pulse Ox O2 O2 Flow FiO2 Time Delivery Rate 08/01/18 98.1 64 21 130/55 99 Mechanical 16:00 (80) Ventilator 08/01/18 30 15:40 Intake and Output 07/31/18 07/31/18 08/01/18 1515:00 23:00 07:00 IntakeIntake Total 380 ml 255 ml 35 ml OutputOutput Total 30 ml 0 ml 0 ml BalanceBalance 350 ml 255 ml 35 ml Exam Eyes: nl conjunctiva, EOMI, nl lids, nl sclera ENMT: nl external ears & nose, nl lips & teeth, nl nasal mucosa & septum, mucosa pink and moist Neck: supple, non-tender Respiratory: clear to auscultation, normal air movement Cardiovascular: regular rate and rhythm, nl pulses Gastrointestinal: soft, nl liver, spleen, non-tender Results Result Diagram: 08/01/18 0453 08/01/18 0453 OPAL RODRIGUEZ MD Aug 01, 2018 17:27
[2018-08-01] MEDS: DOXAZOSIN 4 MG TAB PO SCH (21:00)
[2018-08-01] MEDS: CEFEPIME 1GM/50 ML IVPB SCH (21:13)
[2018-08-01] MEDS: ATORVASTATIN 40 MG TAB PO SCH (21:14)
[2018-08-02] VITALS (65 sets, daily range): BP systolic 100–166; BP diastolic 49–86; PULSE 59–85; RESP 11–25
[2018-08-02] MEDS: INSULIN ASPART [NOVOLOG] 3 ML PEN SC SCH ×6 (01:35→20:45)
[2018-08-02] MEDS ORDERED: SEVOFLURANE 15 MIN ONE (07:00)
--- NOTE | 2018-08-02 07:54 | CONS ---
Assessment/Plan Assessment/Plan Hospital Course 83 M who is admitted to the [facility] ICU for management of acute respiratory failure. CXR revealed bilateral pneumonias.. Neurology is consulted to evaluate ams.. Of note, he remains in severe MYKE requiring HD..which is a likely contributor.. Also notably, he was on sedation for a prolonged period, which has now been held x 2 days. Most clinically consistent w/ an acute and severe toxic-metabolic encephalop athy.. CTH is without acute intracranial pathology. EEG is without epileptiform activity. P: Ok to defer additional neuroimaging for now Cont to limit sedating medications where possible Other medical management and supportive care per primary Will follow clinically Result Diagram: 08/02/18 0440 08/02/18 0440 Results 24hrs Laboratory Tests Test 08/01/18 08:36 08/01/18 08:39 08/01/18 13:59 08/01/18 16:02 Blood Gas Specimen Blood arterial Source Arterial Blood 08/01/2018 8:50:47 Date Drawn AM Arterial Blood pH 7.471 H (Temp corrected) Arterial Blood 29.2 L pCO2 (Temp correct) Arterial Blood pO2 89.4 (Temp corrected) Arterial Blood 20.8 L HCO3 Arterial Blood -2.2 Base Excess Arterial Blood 96.0 Oxygen Saturation Margarito Test ACCEPTAB Arterial Blood Gas Right Radial Puncture Site Arterial 0.3 Blood Carboxyhemog lobin Arterial Blood 0.1 Methemoglobin Blood Gas A-a O2 90.2 H Differential Oxyhemoglobin 95.6 Percent Blood Gas 37.0 Temperature Blood Gas 16.0 Respiration Rate Blood Gas Actual 21 Respiration Rate Blood Gas Modality VENT - AC FiO2 30.0 Blood Gas Tidal 500.0 Volume Blood Gas Low PEEP 5.0 Setting Blood Gas Notified TM Whom Blood Gas Notified 08/01/2018 9:05:33 Time AM Bedside Glucose 155 137 162 Test 08/01/18 21:12 08/02/18 01:31 08/02/18 04:40 08/02/18 04:43 Bedside Glucose 154 143 125 White Blood Count 11.7 H Red Blood Count 2.74 L Hemoglobin 8.5 L Hematocrit 25.5 L Mean Corpuscular 93.1 Volume Mean Corpuscular 31.0 Hemoglobin Mean Corpuscular 33.3 Hemoglobin Concent Red Cell 14.5 Distribution Width Platelet Count 157 Mean Platelet 13.2 H Volume Immature 0.800 H Granulocytes % Neutrophils % 88.4 H Lymphocytes % 3.3 L Monocytes % 6.7 Eosinophils % 0.5 Basophils % 0.3 Nucleated Red 0.0 Blood Cells % Immature 0.090 H Granulocytes # Neutrophils # 10.3 H Lymphocytes # 0.4 L Monocytes # 0.8 Eosinophils # 0.1 Basophils # 0.0 Nucleated Red 0.0 Blood Cells # Prothrombin Time 14.8 Prothrombin Time 1.2 Ratio INR International 1.15 Normalized Ratio Activated 36.[address] Time Sodium Level 138 Potassium Level 4.5 Chloride Level 98 Carbon Dioxide 27 Level Anion Gap 13 Blood Urea 82 H Nitrogen Creatinine 3.27 H Est Glomerular Filtrat Rate mL/min Glucose Level 121 Calcium Level 8.4 Consultation Date/Type/Reason Admit Date/Time Jul 18, 2018 at 16:57 Type of Consult Neurology Requesting Provider: HARLEY STARR Date/Time of Note DATE: 08/02/18 TIME: 07:51 24 HR Interval Summary Free Text/Dictation Continues critical care. No acute events reported. Pt remains intubated, off sedation. Subjective hx not possible: pt non-verbal, pt critical status Exam Vital Signs Vitals Vital Signs Date Temp Pulse Resp B/P (MAP) Pulse Ox O2 O2 Flow FiO2 Time Delivery Rate 08/02/18 73 20 100 30 05:31 08/02/18 139/65 Mechanical 05:00 (89) Ventilator 08/02/18 98.3 04:00 Intake and Output 08/01/18 08/01/18 08/02/18 1515:00 23:00 07:00 IntakeIntake Total 380 ml 580 ml 135 ml OutputOutput Total 3025 ml 25 ml 20 ml BalanceBalance -2645 ml 555 ml 115 ml Exam PE: Gen Appearance: No Apparent Distress HEENT: Intubated Cardiovascular: Regular rate Respiratory: mechanically ventilated; tachypneic Abdomen: Soft Extremities: Dry NE: The patient was obtunded. Tried to blink to noxious stimuli. Pt moved head spontaneously. Cranial nerve examination was limited by mental status. Pupils were equal and reactive to light. There was no afferent pupillary defect. Funduscopic exami nation was limited. Face was grossly symmetric, w/ weak cough reflexes. Tone was normal. Muscle bulk was normal. I did not see fasciculations. The patient did not withdraw to noxious stimulation. Coordination and gait testing was limited by mental status. Arm and leg reflexes were symmetric. Chacon's sign was absent. Plantar responses were mute. RIKI MAHAN NP Aug 02, 2018 07:54 JAMMIE AMEZCUA Aug 03, 2018 05:35
[2018-08-02] MEDS: HEPARIN 5,000 UNIT/1 ML VIAL SC SCH ×3 (09:00→21:00)
[2018-08-02] MEDS: FAMOTIDINE 20 MG TAB PO SCH (09:44)
[2018-08-02] MEDS: NIFEdipine 10 MG CAP NGT SCH ×3 (09:44→21:00)
[2018-08-02] MEDS: FINASTERIDE 5 MG TAB PO SCH (09:44)
[2018-08-02] MEDS: BACLOFEN 10 MG TAB PO SCH ×2 (09:44→20:50)
[2018-08-02] MEDS: ALLOPURINOL 100 MG TAB PO SCH (09:44)
[2018-08-02] MEDS: DOCUSATE SODIUM 10 MG/ML (10ML CUP) GTB SCH ×2 (09:45→21:00)
[2018-08-02] MEDS: BALSAM PERU/CASTOR OIL 60 GM TUBE TOP SCH ×2 (09:45→20:46)
--- NOTE | 2018-08-02 12:20 | CONS ---
Date/Time of Note Date/Time of Note DATE: 08/02/18 TIME: 12:16 Consult Date/Type/Reason Admit Date/Time Jul 18, 2018 at 16:57 Initial Consult Date 07/19/18 Type of Consultation: Pulm/CCM Requesting Provider: HARLEY STARR Subjective Unresponsive on the vent. Moves extremities but does not follow commands. Objective Vital Signs Date Temp Pulse Resp B/P (MAP) Pulse Ox O2 O2 Flow FiO2 Time Delivery Rate 08/02/18 60 19 140/64 98 11:15 (89) 08/02/18 Mechanical 11:00 Ventilator 08/02/18 98.7 08:00 08/02/18 30 08:00 Intake and Output 08/01/18 08/01/18 08/02/18 1515:00 23:00 07:00 IntakeIntake Total 380 ml 580 ml 135 ml OutputOutput Total 3025 ml 25 ml 25 ml BalanceBalance -2645 ml 555 ml 110 ml Exam NECK: Supple. No JVD or lymphadenopathy. + ET tube in place CARDIAC EXAM: Paced S1, S2. No added sounds or murmurs. CHEST: Coarse rhonchi B/L ABDOMEN: Soft, nontender. No guarding or rebound. EXTREMITIES: No cyanosis, clubbing or edema. NEUROLOGIC: Generalized weakness. No focal deficits. Results/Medications Result Diagram: 08/02/1843908/02/18439 Results 24 hrs Laboratory Tests Test 08/01/18 13:59 08/01/18 16:02 08/01/18 21:12 08/02/18 01:31 Bedside Glucose 137 162 154 143 Test 08/02/18 04:40 08/02/18 04:43 08/02/18 08:47 White Blood Count 11.7 H Red Blood Count 2.74 L Hemoglobin 8.5 L Hematocrit 25.5 L Mean Corpuscular Volume 93.1 Mean Corpuscular 31.0 Hemoglobin Mean Corpuscular 33.3 Hemoglobin Concent Red Cell Distribution 14.5 Width Platelet Count 157 Mean Platelet Volume 13.2 H Immature Granulocytes % 0.800 H Neutrophils % 88.4 H Lymphocytes % 3.3 L Monocytes % 6.7 Eosinophils % 0.5 Basophils % 0.3 Nucleated Red Blood 0.0 Cells % Immature Granulocytes # 0.090 H Neutrophils # 10.3 H Lymphocytes # 0.4 L Monocytes # 0.8 Eosinophils # 0.1 Basophils # 0.0 Nucleated Red Blood 0.0 Cells # Prothrombin Time 14.8 Prothrombin Time Ratio 1.2 INR International 1.15 Normalized Ratio Activated 36.4 H Partial Thromboplast Time Sodium Level 138 Potassium Level 4.5 Chloride Level 98 Carbon Dioxide Level 27 Anion Gap 13 Blood Urea Nitrogen 82 H Creatinine 3.27 H Est Glomerular Filtrat Rate mL/min Glucose Level 121 Calcium Level 8.4 Bedside Glucose 125 128 Medications Current Medications IV Flush (NS 3 ml) 3 ml PER PROTOCOL IV ; Start 07/18/18 at 17:30 Ondansetron HCl (Zofran Inj) 4 mg Q6H PRN IV NAUSEA AND/OR VOMITING; Start 07/18/18 at 17:30 Acetaminophen (Tylenol Tab) 650 mg Q6H PRN PO PAIN LEVEL 1-3 OR FEVER; Start 07/18/18 at 17:30 Atorvastatin Calcium (Lipitor) 40 mg QHS PO Last administered on 08/01/18 2 1:14; Admin Dose 40 MG; Start 07/18/18 at 21:00 Baclofen (Lioresal) 10 mg BID PO Last administered on 08/02/18 09:44; Admin Dose 10 MG; Start 07/18/18 at 21:00 Docusate Sodium (Colace) 100 mg BID PRN PO CONSTIPATION; Start 07/18/18 at 17:30 Doxazosin Mesylate (Cardura) 4 mg HS PO Last administered on 08/01/18 21:00; Admin Dose 4 MG; Start 07/18/18 at 21:00 Finasteride (Proscar) 5 mg DAILY PO Last administered on 08/02/18 09:44; Admin Dose 5 MG; Start 07/19/18 at 09:00 Haloperidol (Haldol) 5 mg Q2H PRN IM AGITATION Last administered on 07/19/18at 02:37; Admin Dose 5 MG; Start 07/18/18 at 23:30 Propofol 100 ml @ 1.909 mls/ hr Q12H IV Last administered on 07/29/18 21:42; Admin Dose 7.637 MLS/HR; Start 07/19/18 at 14:00; Status Hold Allopurinol (Zyloprim) 100 mg DAILY PO Last administered on 08/02/18 09:44; Admin Dose 100 MG; Start 07/21/18 at 09:00 Docusate Sodium (Colace Liquid Cup) 100 mg BID GTB Last administered on 08/02/18 09:45; Admin Dose 100 MG; Start 07/20/18 at 21:00 Fentanyl 100 ml @ 2.5 mls/hr TITRATE IV Last administered on 07/26/18 04:53; Admin Dose 5 MLS/HR; Start 07/21/18 at 08:00; Status Hold Morphine Sulfate (morphine) 6 mg Q4H PRN PO PAIN LEVEL 7-10 Last administered on 08/02/18 10:01; Admin Dose 6 MG; Start 07/21/18 at 11:00 Nifedipine (Procardia) 20 mg TID NGT Last administered on 08/02/18 09:44; Admin Dose 20 MG; Start 07/23/18 at 14:30 Lorazepam (Ativan) 1 mg Q4H PRN GTB AGITATION Last administered on 07/31/18 21:25; Admin Dose 1 MG; Start 07/24/18 at 11:00 Insulin Aspart (Novolog Insulin Pen) NOVOLOG *MILD* ALGORI... Q4 SC Last administered on 08/02/18 01:35; Admin Dose 1 UNIT; Start 07/26/18 at 17:00 Miscellaneous Information 1 ea NOTE XX ; Start 07/26/18 at 14:30 Glucose (Glutose) 15 gm Q15M PRN PO DECREASED GLUCOSE; Start 07/26/18 at 14:30 Glucose (Glutose) 22.5 gm Q15M PRN PO DECREASED GLUCOSE; Start 07/26/18 at 14:30 Dextrose (D50w Syringe) 25 ml Q15M PRN IV DECREASED GLUCOSE; Start 07/26/18 at 14:30 Dextrose (D50w Syringe) 50 ml Q15M PRN IV DECREASED GLUCOSE; Start 07/26/18 at 14:30 Glucagon (Glucagen) 1 mg Q15M PRN IM DECREASED GLUCOSE; Start 07/26/18 at 14:30 Glucose (Glutose) 15 gm Q15M PRN BUCCAL DECREASED GLUCOSE; Start 07/26/18 at 14:30 Cefepime HCl 50 ml @ 100 mls/hr Q24H IVPB Last administered on 08/01/18 21:13; Admin Dose 100 MLS/HR; Start 07/28/18 at 21:00 Heparin Sodium (Porcine) (Heparin (1000 Units/ml)) 3,000 unit AFTER DIALYSIS CATHETER Last administered on 08/01/18at 13:06; Admin Dose 3,000 UNIT; Start 07/29/18 at 09:30 Famotidine (Pepcid) 20 mg DAILY PO Last administered on 08/02/18at 09:44; Admin Dose 20 MG; Start 07/31/18 at 09:00 Heparin Sodium (Porcine) (Heparin (5000 Units/1ml)) 5,000 unit BID SC Last administered on 08/01/18at 21:15; Admin Dose 5,000 UNIT; Start 08/01/18 at 09:00 Assessment/Plan Additional Assessment/Plan IMP: 1. Acute hypoxemic respiratory failure 2/2 multifocal pneumonia; cannot exclude co-existing bland hemorrhage/volume overload--now failure to wean 2. Encephalopathy toxic metabolic 3. Anemia questionable GI bleed 4. MYKE--FeUrea c/w intrinsic renal cause 5. Dysphagia 6. Anemia RECS: 1. Vent support 2. HD/UF as per Renal 3. Minimize sedatives; may use fentanyl prn 4. Awaiting trach per RN 5. GI/VTE prophylaxis 6. Palliative Consult cc 40 mins. CHRIS BILL MD Aug 02, 2018 12:20
[2018-08-02] MEDS ORDERED: FENTAnyl 50 MCG/ML VIAL IV PRN (12:30)
--- NOTE | 2018-08-02 12:33 | CONS ---
Date/Time of Note Date/Time of Note DATE: 08/02/18 TIME: 12:31 Assessment/Plan Assessment/Plan Assessment/Plan 1. Hypertension, uncontrolled - better now - con't medical Rx. 2. History of permanent pacemaker. No signs of dysfunction at this time, primarily ventricular pacing.Site looks well - with good fxn. 3. History of percutaneous transluminal coronary angioplasty and stent placement - no intervention planned now. 4. Respiratory failure, status post intubation. 5. End-stage renal disease on hemodialysis - Rx as needed. 6. Anemia. 7. Leukocytosis with a history of benign prostatic hypertrophy. 8. Pneumonia, bilateral- on anti-Bx. 9. Dementia. 10. Encephalopathy- off all sedation - no signs of spontaneous motion or response. Result Diagram: 08/02/1843908/02/18 0440 Results 24hrs Laboratory Tests Test 08/01/18 13:59 08/01/18 16:02 08/01/18 21:12 08/02/18 01:31 Bedside Glucose 137 162 154 143 Test 08/02/18 04:40 08/02/18 04:43 08/02/18 08:47 White Blood Count 11.7 H Red Blood Count 2.74 L Hemoglobin 8.5 L Hematocrit 25.5 L Mean Corpuscular Volume 93.1 Mean Corpuscular 31.0 Hemoglobin Mean Corpuscular 33.3 Hemoglobin Concent Red Cell Distribution 14.5 Width Platelet Count 157 Mean Platelet Volume 13.2 H Immature Granulocytes % 0.800 H Neutrophils % 88.4 H Lymphocytes % 3.3 L Monocytes % 6.7 Eosinophils % 0.5 Basophils % 0.3 Nucleated Red Blood 0.0 Cells % Immature Granulocytes # 0.090 H Neutrophils # 10.3 H Lymphocytes # 0.4 L Monocytes # 0.8 Eosinophils # 0.1 Basophils # 0.0 Nucleated Red Blood 0.0 Cells # Prothrombin Time 14.8 Prothrombin Time Ratio 1.2 INR International 1.15 Normalized Ratio Activated 36.4 H Partial Thromboplast Time Sodium Level 138 Potassium Level 4.5 Chloride Level 98 Carbon Dioxide Level 27 Anion Gap 13 Blood Urea Nitrogen 82 H Creatinine 3.27 H Est Glomerular Filtrat Rate mL/min Glucose Level 121 Calcium Level 8.4 Bedside Glucose 125 128 Consultation Date/Type/Reason Admit Date/Time Jul 18, 2018 at 16:57 Initial Consult Date 07/19/18 Requesting Provider: HARLEY STARR 24 HR Interval Summary Free Text/Dictation Pacer with good function - off all sedation - no signs of spontaneous motion or response. ROS: No fever, no chills, no nausea, no vomiting, no diarrhea/constipation - PER NURSE No recent weight changes No chest pain, no PND, no orthopnea Exam/Review of Systems Vital Signs Vitals Vital Signs Date Temp Pulse Resp B/P (MAP) Pulse Ox O2 O2 Flow FiO2 Time Delivery Rate 08/02/18 60 19 140/64 98 11:15 (89) 08/02/18 Mechanical 11:00 Ventilator 08/02/18 98.7 08:00 08/02/18 30 08:00 Intake and Output 08/01/18 08/01/18 08/02/18 1515:00 23:00 07:00 IntakeIntake Total 380 ml 580 ml 135 ml OutputOutput Total 3025 ml 25 ml 25 ml BalanceBalance -2645 ml 555 ml 110 ml Exam General: WN/WD/NAD, AOx 0 HEENT: Unicetric/atraumatic/EOMI (does not follow commands) NECK: JVD elevated, no thyromegaly Lymph: no lymphadenopathy HEART: regular with no S3, II/ systolic murmur at apex, pacer LUNGS: Coarse sounds ABD: soft, NT, ND, +BS : Intact Neuro: non focal SKIN: chronic changes EXT: trace edema Medications Medications Current Medications IV Flush (NS 3 ml) 3 ml PER PROTOCOL IV ; Start 07/18/18 at 17:30 Ondansetron HCl (Zofran Inj) 4 mg Q6H PRN IV NAUSEA AND/OR VOMITING; Start 07/18/18 at 17:30 Acetaminophen (Tylenol Tab) 650 mg Q6H PRN PO PAIN LEVEL 1-3 OR FEVER; Start 07/18/18 at 17:30 Atorvastatin Calcium (Lipitor) 40 mg QHS PO Last administered on 08/01/18at 21:14; Admin Dose 40 MG; Start 07/18/18 at 21:00 Baclofen (Lioresal) 10 mg BID PO Last administered on 08/02/18at 09:44; Admin Dose 10 MG; Start 07/18/18 at 21:00 Docusate Sodium (Colace) 100 mg BID PRN PO CONSTIPATION; Start 07/18/18 at 17:30 Doxazosin Mesylate (Cardura) 4 mg HS PO Last administered on 08/01/18 21:00; Admin Dose 4 MG; Start 07/18/18 at 21:00 Finasteride (Proscar) 5 mg DAILY PO Last administered on 08/02/18 09:44; Admin Dose 5 MG; Start 07/19/18 at 09:00 Haloperidol (Haldol) 5 mg Q2H PRN IM AGITATION Last administered on 07/19/18at 02:37; Admin Dose 5 MG; Start 07/18/18 at 23:30 Propofol 100 ml @ 1.909 mls/ hr Q12H IV Last administered on 07/29/18 21:42; Admin Dose 7.637 MLS/HR; Start 07/19/18 at 14:00; Status Hold Allopurinol (Zyloprim) 100 mg DAILY PO Last administered on 08/02/18 09:44; Admin Dose 100 MG; Start 07/21/18 at 09:00 Docusate Sodium (Colace Liquid Cup) 100 mg BID GTB Last administered on 08/02/18 09:45; Admin Dose 100 MG; Start 07/20/18 at 21:00 Fentanyl 100 ml @ 2.5 mls/hr TITRATE IV Last administered on 07/26/18 04:53; Admin Dose 5 MLS/HR; Start 07/21/18 at 08:00; Status Hold Morphine Sulfate (morphine) 6 mg Q4H PRN PO PAIN LEVEL 7-10 Last administered on 08/02/18 10:01; Admin Dose 6 MG; Start 07/21/18 at 11:00 Nifedipine (Procardia) 20 mg TID NGT Last administered on 08/02/18 09:44; Admin Dose 20 MG; Start 07/23/18 at 14:30 Lorazepam (Ativan) 1 mg Q4H PRN GTB AGITATION Last administered on 07/31/18 21:25; Admin Dose 1 MG; Start 07/24/18 at 11:00 Insulin Aspart (Novolog Insulin Pen) NOVOLOG *MILD* ALGORI... Q4 SC Last administered on 08/02/18 01:35; Admin Dose 1 UNIT; Start 07/26/18 at 17:00 Miscellaneous Information 1 ea NOTE XX ; Start 07/26/18 at 14:30 Glucose (Glutose) 15 gm Q15M PRN PO DECREASED GLUCOSE; Start 07/26/18 at 14:30 Glucose (Glutose) 22.5 gm Q15M PRN PO DECREASED GLUCOSE; Start 07/26/18 at 14:30 Dextrose (D50w Syringe) 25 ml Q15M PRN IV DECREASED GLUCOSE; Start 07/26/18 at 14:30 Dextrose (D50w Syringe) 50 ml Q15M PRN IV DECREASED GLUCOSE; Start 07/26/18 at 14:30 Glucagon (Glucagen) 1 mg Q15M PRN IM DECREASED GLUCOSE; Start 07/26/18 at 14:30 Glucose (Glutose) 15 gm Q15M PRN BUCCAL DECREASED GLUCOSE; Start 07/26/18 at 14:30 Cefepime HCl 50 ml @ 100 mls/hr Q24H IVPB Last administered on 08/01/18 21:13; Admin Dose 100 MLS/HR; Start 07/28/18 at 21:00 Heparin Sodium (Porcine) (Heparin (1000 Units/ml)) 3,000 unit AFTER DIALYSIS CATHETER Last administered on 08/01/18 13:06; Admin Dose 3,000 UNIT; Start 07/29/18 at 09:30 Famotidine (Pepcid) 20 mg DAILY PO Last administered on 08/02/18at 09:44; Admin Dose 20 MG; Start 07/31/18 at 09:00 Heparin Sodium (Porcine) (Heparin (5000 Units/1ml)) 5,000 unit BID SC Last administered on 08/01/18 21:15; Admin Dose 5,000 UNIT; Start 08/01/18 at 09:00 Fentanyl (Sublimaze) 25 mcg Q2H PRN IV SEVERE PAIN LEVEL 7-10; Start 08/02/18 at 12:30; Status WILLIAM LAM MD Aug 02, 2018 12:33
--- NOTE | 2018-08-02 13:04 | CONS ---
Date/Time of Note Date/Time of Note DATE: 08/02/18 TIME: 13:02 Assessment/Plan Assessment/Plan Hospital Course No acute changes overnight patient is lying comfortably in bed no fevers overnight WBC today 11.7 H&H 8.5 and 25.5 platelets 157 neutrophils 88.4 Indwelling's: Endotracheal tube: NG tube: Owens catheter: Right upper extremity PICC line, permanent pacemaker, right femoral Vinnie catheter Antimicrobials: Cefepime Microbiology: Cultures since admission had been negative Chest x-ray 07/30/18 revealed bilateral diffuse pulmonary infiltrates Physical examination: Chronically ill-appearing elderly man who is intubated in no distress. Head atraumatic normocephalic. Sclera nonicteric. Neck is supple chest rise symmetrical breath sounds diminished bases. Heart: S1-S2. Abdomen soft bowel sounds hypoactive. Extremities with dependent edema Assessment: 1. Status post septic shock 2. Acute hypoxemic respiratory failure 3. Severe bilateral pneumonia, improved 4. Encephalopathy, likely toxic metabolic 5. Anemia 6. Acute renal failure, started on hemodialysis Plan: Remains hemodynamically stable, continue present care, we will discontinue antibiotics as he already completed 2 weeks and observe, vent management per pulmonary Result Diagram: 08/02/18 0440 08/02/18 0440 Results 24hrs Laboratory Tests Test 08/01/18 13:59 08/01/18 16:02 08/01/18 21:12 08/02/18 01:31 Bedside Glucose 137 162 154 143 Test 08/02/18 04:40 08/02/18 04:43 08/02/18 08:47 White Blood Count 11.7 H Red Blood Count 2.74 L Hemoglobin 8.5 L Hematocrit 25.5 L Mean Corpuscular Volume 93.1 Mean Corpuscular 31.0 Hemoglobin Mean Corpuscular 33.3 Hemoglobin Concent Red Cell Distribution 14.5 Width Platelet Count 157 Mean Platelet Volume 13.2 H Immature Granulocytes % 0.800 H Neutrophils % 88.4 H Lymphocytes % 3.3 L Monocytes % 6.7 Eosinophils % 0.5 Basophils % 0.3 Nucleated Red Blood 0.0 Cells % Immature Granulocytes # 0.090 H Neutrophils # 10.3 H Lymphocytes # 0.4 L Monocytes # 0.8 Eosinophils # 0.1 Basophils # 0.0 Nucleated Red Blood 0.0 Cells # Prothrombin Time 14.8 Prothrombin Time Ratio 1.2 INR International 1.15 Normalized Ratio Activated 36.4 H Partial Thromboplast Time Sodium Level 138 Potassium Level 4.5 Chloride Level 98 Carbon Dioxide Level 27 Anion Gap 13 Blood Urea Nitrogen 82 H Creatinine 3.27 H Est Glomerular Filtrat Rate mL/min Glucose Level 121 Calcium Level 8.4 Bedside Glucose 125 128 Consultation Date/Type/Reason Admit Date/Time Jul 18, 2018 at 16:57 Initial Consult Date 07/19/18 Type of Consult ID Requesting Provider: HARLEY STARR Exam/Review of Systems Vital Signs Vitals Vital Signs Date Temp Pulse Resp B/P (MAP) Pulse Ox O2 O2 Flow FiO2 Time Delivery Rate 08/02/18 60 19 140/64 98 11:15 (89) 08/02/18 Mechanical 11:00 Ventilator 08/02/18 98.7 08:00 08/02/18 30 08:00 Intake and Output 08/01/18 08/01/18 08/02/18 1515:00 23:00 07:00 IntakeIntake Total 380 ml 580 ml 135 ml OutputOutput Total 3025 ml 25 ml 25 ml BalanceBalance -2645 ml 555 ml 110 ml Medications Medications Current Medications IV Flush (NS 3 ml) 3 ml PER PROTOCOL IV ; Start 07/18/18 at 17:30 Ondansetron HCl (Zofran Inj) 4 mg Q6H PRN IV NAUSEA AND/OR VOMITING; Start 07/18/18 at 17:30 Acetaminophen (Tylenol Tab) 650 mg Q6H PRN PO PAIN LEVEL 1-3 OR FEVER; Start 07/18/18 at 17:30 Atorvastatin Calcium (Lipitor) 40 mg QHS PO Last administered on 08/01/18at 21:14; Admin Dose 40 MG; Start 07/18/18 at 21:00 Baclofen (Lioresal) 10 mg BID PO Last administered on 08/02/18at 09:44; Admin Dose 10 MG; Start 07/18/18 at 21:00 Docusate Sodium (Colace) 100 mg BID PRN PO CONSTIPATION; Start 07/18/18 at 17:30 Doxazosin Mesylate (Cardura) 4 mg HS PO Last administered on 08/01/18at 21:00; Admin Dose 4 MG; Start 07/18/18 at 21:00 Finasteride (Proscar) 5 mg DAILY PO Last administered on 08/02/18 09:44; Admin Dose 5 MG; Start 07/19/18 at 09:00 Haloperidol (Haldol) 5 mg Q2H PRN IM AGITATION Last administered on 07/19/18at 02:37; Admin Dose 5 MG; Start 07/18/18 at 23:30 Propofol 100 ml @ 1.909 mls/ hr Q12H IV Last administered on 07/29/18 21:42; Admin Dose 7.637 MLS/HR; Start 07/19/18 at 14:00; Status Hold Allopurinol (Zyloprim) 100 mg DAILY PO Last administered on 08/02/18 09:44; Admin Dose 100 MG; Start 07/21/18 at 09:00 Docusate Sodium (Colace Liquid Cup) 100 mg BID GTB Last administered on 08/02/18 09:45; Admin Dose 100 MG; Start 07/20/18 at 21:00 Fentanyl 100 ml @ 2.5 mls/hr TITRATE IV Last administered on 07/26/18at 04:53; Admin Dose 5 MLS/HR; Start 07/21/18 at 08:00; Status Hold Morphine Sulfate (morphine) 6 mg Q4H PRN PO PAIN LEVEL 7-10 Last administered on 08/02/18 10:01; Admin Dose 6 MG; Start 07/21/18 at 11:00 Nifedipine (Procardia) 20 mg TID NGT Last administered on 08/02/18 09:44; Admin Dose 20 MG; Start 07/23/18 at 14:30 Lorazepam (Ativan) 1 mg Q4H PRN GTB AGITATION Last administered on 07/31/18 21:25; Admin Dose 1 MG; Start 07/24/18 at 11:00 Insulin Aspart (Novolog Insulin Pen) NOVOLOG *MILD* ALGORI... Q4 SC Last administered on 08/02/18 01:35; Admin Dose 1 UNIT; Start 07/26/18 at 17:00 Miscellaneous Information 1 ea NOTE XX ; Start 07/26/18 at 14:30 Glucose (Glutose) 15 gm Q15M PRN PO DECREASED GLUCOSE; Start 07/26/18 at 14:30 Glucose (Glutose) 22.5 gm Q15M PRN PO DECREASED GLUCOSE; Start 07/26/18 at 14:30 Dextrose (D50w Syringe) 25 ml Q15M PRN IV DECREASED GLUCOSE; Start 07/26/18 at 14:30 Dextrose (D50w Syringe) 50 ml Q15M PRN IV DECREASED GLUCOSE; Start 07/26/18 at 14:30 Glucagon (Glucagen) 1 mg Q15M PRN IM DECREASED GLUCOSE; Start 07/26/18 at 14:30 Glucose (Glutose) 15 gm Q15M PRN BUCCAL DECREASED GLUCOSE; Start 07/26/18 at 14:30 Cefepime HCl 50 ml @ 100 mls/hr Q24H IVPB Last administered on 08/01/18 21:13; Admin Dose 100 MLS/HR; Start 07/28/18 at 21:00 Heparin Sodium (Porcine) (Heparin (1000 Units/ml)) 3,000 unit AFTER DIALYSIS CATHETER Last administered on 08/01/18 13:06; Admin Dose 3,000 UNIT; Start 07/29/18 at 09:30 Famotidine (Pepcid) 20 mg DAILY PO Last administered on 08/02/18at 09:44; Admin Dose 20 MG; Start 07/31/18 at 09:00 Heparin Sodium (Porcine) (Heparin (5000 Units/1ml)) 5,000 unit BID SC Last administered on 08/01/18 21:15; Admin Dose 5,000 UNIT; Start 08/01/18 at 09:00 Fentanyl (Sublimaze) 25 mcg Q2H PRN IV SEVERE PAIN LEVEL 7-10; Start 08/02/18 at 12:30 NATALIA CARTAGENA NP Aug 02, 2018 13:03
--- NOTE | 2018-08-02 13:11 | CONS ---
Date/Time of Note Date/Time of Note DATE: 08/02/18 TIME: 13:10 Assessment/Plan Assessment/Plan Assessment/Plan 1. Acute renal failure due to ATN from sepsis 2. Sepsis due to PNA 3. Acute Hypoxemic respiratory failure due to PNA - Intubated on ventilator 4. H/o CAD s/p previous stent placement 5. h/o Pacemaker placement 6. H/o HTN 7. H/o HL 8. H/o Chronic back pain, Prostate CA 9. Hypernatremia - now resolved 10. Hyperuricemia, on allopurinol Plan:- started on HD on 07/28/18, s/p Hd yesterday - 2.5 L removed, will plan for another HD on HIV, Hepatitis panel negative Pulmonary to manage ventilator- pt remains intubated on ventilator - After pt weaned off ventilator we will decide about cut off man HD and permacath placement - Currently he is not waking up off sedation, Unresponsive on ventilator, Moves extremities but does not follow commands will follow up Result Diagram: 08/02/18 0440 08/02/180 Results 24hrs Laboratory Tests Test 08/01/18 13:59 08/01/18 16:02 08/01/18 21:12 08/02/18 01:31 Bedside Glucose 137 162 154 143 Test 08/02/18 04:40 08/02/18 04:43 08/02/18 08:47 White Blood Count 11.7 H Red Blood Count 2.74 L Hemoglobin 8.5 L Hematocrit 25.5 L Mean Corpuscular Volume 93.1 Mean Corpuscular 31.0 Hemoglobin Mean Corpuscular 33.3 Hemoglobin Concent Red Cell Distribution 14.5 Width Platelet Count 157 Mean Platelet Volume 13.2 H Immature Granulocytes % 0.800 H Neutrophils % 88.4 H Lymphocytes % 3.3 L Monocytes % 6.7 Eosinophils % 0.5 Basophils % 0.3 Nucleated Red Blood 0.0 Cells % Immature Granulocytes # 0.090 H Neutrophils # 10.3 H Lymphocytes # 0.4 L Monocytes # 0.8 Eosinophils # 0.1 Basophils # 0.0 Nucleated Red Blood 0.0 Cells # Prothrombin Time 14.8 Prothrombin Time Ratio 1.2 INR International 1.15 Normalized Ratio Activated 36.4 H Partial Thromboplast Time Sodium Level 138 Potassium Level 4.5 Chloride Level 98 Carbon Dioxide Level 27 Anion Gap 13 Blood Urea Nitrogen 82 H Creatinine 3.27 H Est Glomerular Filtrat Rate mL/min Glucose Level 121 Calcium Level 8.4 Bedside Glucose 125 128 Consultation Date/Type/Reason Admit Date/Time Jul 18, 2018 at 16:57 Initial Consult Date 07/19/18 Type of Consult NEPHROLOGY Requesting Provider: HARLYE STARR 24 HR Interval Summary Free Text/Dictation s/p Hd yesterday 2.5 L removed, afebrile, BP stable, no fever, no SOB Exam/Review of Systems Vital Signs Vitals Vital Signs Date Temp Pulse Resp B/P (MAP) Pulse Ox O2 O2 Flow FiO2 Time Delivery Rate 08/02/18 60 19 140/64 98 11:15 (89) 08/02/18 Mechanical 11:00 Ventilator 08/02/18 98.7 08:00 08/02/18 30 08:00 Intake and Output 08/01/18 08/01/18 08/02/18 1515:00 23:00 07:00 IntakeIntake Total 380 ml 580 ml 135 ml OutputOutput Total 3025 ml 25 ml 25 ml BalanceBalance -2645 ml 555 ml 110 ml Exam Constitutional: non-verbal, other (Intubated on ventilator ) Eyes: other (ET tube in place ), NG tube place Respiratory: diminished breath sounds, other (Bilateral Coarse BS+) Cardiovascular: regular rate and rhythm Gastrointestinal: soft, non-tender Musculoskeletal: muscle weakness, swelling, other (Bilateral UE edema ) Neurological: other (Intubated, sedated on ventilator ) Medications Medications Current Medications IV Flush (NS 3 ml) 3 ml PER PROTOCOL IV ; Start 07/18/18 at 17:30 Ondansetron HCl (Zofran Inj) 4 mg Q6H PRN IV NAUSEA AND/OR VOMITING; Start 07/18/18 at 17:30 Acetaminophen (Tylenol Tab) 650 mg Q6H PRN PO PAIN LEVEL 1-3 OR FEVER; Start 07/18/18 at 17:30 Atorvastatin Calcium (Lipitor) 40 mg QHS PO Last administered on 08/01/18at 21:14; Admin Dose 40 MG; Start 07/18/18 at 21:00 Baclofen (Lioresal) 10 mg BID PO Last administered on 08/02/18at 09:44; Admin Dose 10 MG; Start 07/18/18 at 21:00 Docusate Sodium (Colace) 100 mg BID PRN PO CONSTIPATION; Start 07/18/18 at 17:30 Doxazosin Mesylate (Cardura) 4 mg HS PO Last administered on 08/01/18 21:00; Admin Dose 4 MG; Start 07/18/18 at 21:00 Finasteride (Proscar) 5 mg DAILY PO Last administered on 08/02/18 09:44; Admin Dose 5 MG; Start 07/19/18 at 09:00 Haloperidol (Haldol) 5 mg Q2H PRN IM AGITATION Last administered on 07/19/18 02:37; Admin Dose 5 MG; Start 07/18/18 at 23:30 Propofol 100 ml @ 1.909 mls/ hr Q12H IV Last administered on 07/29/18 21:42; Admin Dose 7.637 MLS/HR; Start 07/19/18 at 14:00; Status Hold Allopurinol (Zyloprim) 100 mg DAILY PO Last administered on 08/02/18 09:44; Admin Dose 100 MG; Start 07/21/18 at 09:00 Docusate Sodium (Colace Liquid Cup) 100 mg BID GTB Last administered on 08/02/18 09:45; Admin Dose 100 MG; Start 07/20/18 at 21:00 Fentanyl 100 ml @ 2.5 mls/hr TITRATE IV Last administered on 07/26/18 04:53; Admin Dose 5 MLS/HR; Start 07/21/18 at 08:00; Status Hold Morphine Sulfate (morphine) 6 mg Q4H PRN PO PAIN LEVEL 7-10 Last administered on 08/02/18 10:01; Admin Dose 6 MG; Start 07/21/18 at 11:00 Nifedipine (Procardia) 20 mg TID NGT Last administered on 08/02/18 09:44; Admin Dose 20 MG; Start 07/23/18 at 14:30 Lorazepam (Ativan) 1 mg Q4H PRN GTB AGITATION Last administered on 07/31/18 21: 25; Admin Dose 1 MG; Start 07/24/18 at 11:00 Insulin Aspart (Novolog Insulin Pen) NOVOLOG *MILD* ALGORI... Q4 SC Last administered on 08/02/18 01:35; Admin Dose 1 UNIT; Start 07/26/18 at 17:00 Miscellaneous Information 1 ea NOTE XX ; Start 07/26/18 at 14:30 Glucose (Glutose) 15 gm Q15M PRN PO DECREASED GLUCOSE; Start 07/26/18 at 14:30 Glucose (Glutose) 22.5 gm Q15M PRN PO DECREASED GLUCOSE; Start 07/26/18 at 14:30 Dextrose (D50w Syringe) 25 ml Q15M PRN IV DECREASED GLUCOSE; Start 07/26/18 at 14:30 Dextrose (D50w Syringe) 50 ml Q15M PRN IV DECREASED GLUCOSE; Start 07/26/18 at 14:30 Glucagon (Glucagen) 1 mg Q15M PRN IM DECREASED GLUCOSE; Start 07/26/18 at 14:30 Glucose (Glutose) 15 gm Q15M PRN BUCCAL DECREASED GLUCOSE; Start 07/26/18 at 14:30 Heparin Sodium (Porcine) (Heparin (1000 Units/ml)) 3,000 unit AFTER DIALYSIS CATHETER Last administered on 08/01/18at 13:06; Admin Dose 3,000 UNIT; Start 07/29/18 at 09:30 Famotidine (Pepcid) 20 mg DAILY PO Last administered on 08/02/18at 09:44; Admin Dose 20 MG; Start 07/31/18 at 09:00 Heparin Sodium (Porcine) (Heparin (5000 Units/1ml)) 5,000 unit BID SC Last administered on 08/01/18at 21:15; Admin Dose 5,000 UNIT; Start 08/01/18 at 09:00 Fentanyl (Sublimaze) 25 mcg Q2H PRN IV SEVERE PAIN LEVEL 7-10; Start 08/02/18 at 12:30 FELICIANO RAMIREZ MD Aug 02, 2018 13:11
--- NOTE | 2018-08-02 13:55 | PN ---
Date/Time of Note Date/Time of Note DATE: 08/02/18 TIME: 13:53 Assessment/Plan VTE Prophylaxis Risk score (from [facility] [place])>0 risk: 14 SCD applied (from [facility] [place]): Yes SCD contraindicated: other Pharmacological prophylaxis: other Pharm contraindication: other Lines/Catheters [facility] KEI Cath Central line still needed: Yes Urinary Cath still in place: Yes Reason Cath still needed: urinary retention Assessment/Plan Assessment/Plan -Acute requiring intubation, patient currently extubated hypoxemic respiratory failure. At about, is following in pulmonology consultation -Possible aspiration pneumonia, continue antibiotics. Dr. Rebolledo is following in infection disease consultation. -E. coli UTI -Paroxysmal atrial fibrillation. Continue Lovenox. -Acute decompensated diastolic congestive heart failure. Dr. Haque is following in cardiology consultation -Dysphagia with G-tube. -Parkinson's disease. Continue Sinemet. -Severe dementia. Total critical care time spent is 35 mins.Further recommendations based on clinical course. Plan of care discussed with Dr. Brown. Result Diagram: 08/02/180 08/02/18 0440 Results 24hrs Laboratory Tests Test 08/01/18 13:59 08/01/18 16:02 08/01/18 21:12 08/02/18 01:31 Bedside Glucose 137 162 154 143 Test 08/02/18 04:40 08/02/18 04:43 08/02/18 08:47 White Blood Count 11.7 H Red Blood Count 2.74 L Hemoglobin 8.5 L Hematocrit 25.5 L Mean Corpuscular Volume 93.1 Mean Corpuscular 31.0 Hemoglobin Mean Corpuscular 33.3 Hemoglobin Concent Red Cell Distribution 14.5 Width Platelet Count 157 Mean Platelet Volume 13.2 H Immature Granulocytes % 0.800 H Neutrophils % 88.4 H Lymphocytes % 3.3 L Monocytes % 6.7 Eosinophils % 0.5 Basophils % 0.3 Nucleated Red Blood 0.0 Cells % Immature Granulocytes # 0.090 H Neutrophils # 10.3 H Lymphocytes # 0.4 L Monocytes # 0.8 Eosinophils # 0.1 Basophils # 0.0 Nucleated Red Blood 0.0 Cells # Prothrombin Time 14.8 Prothrombin Time Ratio 1.2 INR International 1.15 Normalized Ratio Activated 36.4 H Partial Thromboplast Time Sodium Level 138 Potassium Level 4.5 Chloride Level 98 Carbon Dioxide Level 27 Anion Gap 13 Blood Urea Nitrogen 82 H Creatinine 3.27 H Est Glomerular Filtrat Rate mL/min Glucose Level 121 Calcium Level 8.4 Bedside Glucose 125 128 Subjective 24 Hr Interval Summary Free Text/Dictation Plan for Trach Subjective hx not possible: pt non-verbal Exam/Review of Systems Vital Signs Vitals Vital Signs Date Temp Pulse Resp B/P (MAP) Pulse Ox O2 O2 Flow FiO2 Time Delivery Rate 08/02/18 60 12:00 08/02/18 19 140/64 98 11:15 (89) 08/02/18 Mechanical 11:00 Ventilator 08/02/18 98.7 08:00 08/02/18 30 08:00 Intake and Output 08/01/18 08/01/18 08/02/18 1515:00 23:00 07:00 IntakeIntake Total 380 ml 580 ml 135 ml OutputOutput Total 3025 ml 25 ml 25 ml BalanceBalance -2645 ml 555 ml 110 ml Medications Medications Current Medications IV Flush (NS 3 ml) 3 ml PER PROTOCOL IV ; Start 07/18/18 at 17:30 Ondansetron HCl (Zofran Inj) 4 mg Q6H PRN IV NAUSEA AND/OR VOMITING; Start 07/18/18 at 17:30 Acetaminophen (Tylenol Tab) 650 mg Q6H PRN PO PAIN LEVEL 1-3 OR FEVER; Start 07/18/18 at 17:30 Atorvastatin Calcium (Lipitor) 40 mg QHS PO Last administered on 08/01/18 21:14; Admin Dose 40 MG; Start 07/18/18 at 21:00 Baclofen (Lioresal) 10 mg BID PO Last administered on 08/02/18 09:44; Admin Dose 10 MG; Start 07/18/18 at 21:00 Docusate Sodium (Colace) 100 mg BID PRN PO CONSTIPATION; Start 07/18/18 at 1 7:30 Doxazosin Mesylate (Cardura) 4 mg HS PO Last administered on 08/01/18 21:00; Admin Dose 4 MG; Start 07/18/18 at 21:00 Finasteride (Proscar) 5 mg DAILY PO Last administered on 08/02/18 09:44; Admin Dose 5 MG; Start 07/19/18 at 09:00 Haloperidol (Haldol) 5 mg Q2H PRN IM AGITATION Last administered on 07/19/18at 02:37; Admin Dose 5 MG; Start 07/18/18 at 23:30 Propofol 100 ml @ 1.909 mls/ hr Q12H IV Last administered on 07/29/18 21:42; Admin Dose 7.637 MLS/HR; Start 07/19/18 at 14:00; Status Hold Allopurinol (Zyloprim) 100 mg DAILY PO Last administered on 08/02/18 09:44; Admin Dose 100 MG; Start 07/21/18 at 09:00 Docusate Sodium (Colace Liquid Cup) 100 mg BID GTB Last administered on 08/02/18 09:45; Admin Dose 100 MG; Start 07/20/18 at 21:00 Fentanyl 100 ml @ 2.5 mls/hr TITRATE IV Last administered on 07/26/18 04:53; Admin Dose 5 MLS/HR; Start 07/21/18 at 08:00; Status Hold Morphine Sulfate (morphine) 6 mg Q4H PRN PO PAIN LEVEL 7-10 Last administered on 08/02/18 10:01; Admin Dose 6 MG; Start 07/21/18 at 11:00 Nifedipine (Procardia) 20 mg TID NGT Last administered on 08/02/18 09:44; Admin Dose 20 MG; Start 07/23/18 at 14:30 Lorazepam (Ativan) 1 mg Q4H PRN GTB AGITATION Last administered on 07/31/18 21:25; Admin Dose 1 MG; Start 07/24/18 at 11:00 Insulin Aspart (Novolog Insulin Pen) NOVOLOG *MILD* ALGORI... Q4 SC Last administered on 08/02/18 01:35; Admin Dose 1 UNIT; Start 07/26/18 at 17:00 Miscellaneous Information 1 ea NOTE XX ; Start 07/26/18 at 14:30 Glucose (Glutose) 15 gm Q15M PRN PO DECREASED GLUCOSE; Start 07/26/18 at 14:30 Glucose (Glutose) 22.5 gm Q15M PRN PO DECREASED GLUCOSE; Start 07/26/18 at 14:30 Dextrose (D50w Syringe) 25 ml Q15M PRN IV DECREASED GLUCOSE; Start 07/26/18 at 14:30 Dextrose (D50w Syringe) 50 ml Q15M PRN IV DECREASED GLUCOSE; Start 07/26/18 at 14:30 Glucagon (Glucagen) 1 mg Q15M PRN IM DECREASED GLUCOSE; Start 07/26/18 at 14:30 Glucose (Glutose) 15 gm Q15M PRN BUCCAL DECREASED GLUCOSE; Start 07/26/18 at 14:30 Heparin Sodium (Porcine) (Heparin (1000 Units/ml)) 3,000 unit AFTER DIALYSIS CATHETER Last administered on 08/01/18at 13:06; Admin Dose 3,000 UNIT; Start 07/29/18 at 09:30 Famotidine (Pepcid) 20 mg DAILY PO Last administered on 08/02/18at 09:44; Admin Dose 20 MG; Start 07/31/18 at 09:00 Heparin Sodium (Porcine) (Heparin (5000 Units/1ml)) 5,000 unit BID SC Last administered on 08/01/18at 21:15; Admin Dose 5,000 UNIT; Start 08/01/18 at 09:00 Fentanyl (Sublimaze) 25 mcg Q2H PRN IV SEVERE PAIN LEVEL 7-10; Start 08/02/18 at 12:30 JENNIFER RICHARD Aug 02, 2018 13:55
--- NOTE | 2018-08-02 14:12 | PN ---
Date/Time of Note Date/Time of Note DATE: 08/02/18 TIME: 14:11 Assessment/Plan VTE Prophylaxis Risk score (from [facility] [place])>0 risk: 14 SCD applied (from [facility] [place]): Yes SCD contraindicated: other Pharmacological prophylaxis: other Pharm contraindication: other Lines/Catheters [facility] KEI Cath Central line still needed: Yes Urinary Cath still in place: Yes Reason Cath still needed: urinary retention Assessment/Plan Assessment/Plan -Acute hypoxemic respiratory failure, ventilatory support, Dr. Mendoza is following in pulmonology consultation. -Possible pneumonia, continue antibiotics. Dr. Rebolledo is asked to see patient in infection disease consultation. -Acute renal failure failure, started on hemodialysis. Dr. Mari is following and nephrology consultation -Encephalopathy. Dr. Herndon is following in neurology consultation. -Anemia, stool for OB, transfused as needed -Coronary artery disease history of stent placement -PPM -History of prostate CA Further recommendations based on clinical course. Plan of care discussed with Dr. Brown. Result Diagram: 08/02/18 0440 08/02/18 0440 Results 24hrs Laboratory Tests Test 08/01/18 16:02 08/01/18 21:12 08/02/18 01:31 08/02/18 04:40 Bedside Glucose 162 154 143 White Blood Count 11.7 H Red Blood Count 2.74 L Hemoglobin 8.5 L Hematocrit 25.5 L Mean Corpuscular Volume 93.1 Mean Corpuscular 31.0 Hemoglobin Mean Corpuscular 33.3 Hemoglobin Concent Red Cell Distribution 14.5 Width Platelet Count 157 Mean Platelet Volume 13.2 H Immature Granulocytes % 0.800 H Neutrophils % 88.4 H Lymphocytes % 3.3 L Monocytes % 6.7 Eosinophils % 0.5 Basophils % 0.3 Nucleated Red Blood 0.0 Cells % Immature Granulocytes # 0.090 H Neutrophils # 10.3 H Lymphocytes # 0.4 L Monocytes # 0.8 Eosinophils # 0.1 Basophils # 0.0 Nucleated Red Blood 0.0 Cells # Prothrombin Time 14.8 Prothrombin Time Ratio 1.2 INR International 1.15 Normalized Ratio Activated 36.4 H Partial Thromboplast Time Sodium Level 138 Potassium Level 4.5 Chloride Level 98 Carbon Dioxide Level 27 Anion Gap 13 Blood Urea Nitrogen 82 H Creatinine 3.27 H Est Glomerular Filtrat Rate mL/min Glucose Level 121 Calcium Level 8.4 Test 08/02/18 04:43 08/02/18 08:47 Bedside Glucose 125 128 Subjective 24 Hr Interval Summary Free Text/Dictation Entry for 08/01/2017 Exam/Review of Systems Vital Signs Vitals Vital Signs Date Temp Pulse Resp B/P (MAP) Pulse Ox O2 O2 Flow FiO2 Time Delivery Rate 08/02/18 60 12:00 08/02/18 140/64 98 11:15 (89) 08/02/18 Mechanical 11:00 Ventilator 08/02/18 98.7 08:00 08/02/18 30 08:00 Intake and Output 08/01/18 08/01/18 08/02/18 1515:00 23:00 07:00 IntakeIntake Total 380 ml 580 ml 135 ml OutputOutput Total 3025 ml 25 ml 25 ml BalanceBalance -2645 ml 555 ml 110 ml Medications Medications Current Medications IV Flush (NS 3 ml) 3 ml PER PROTOCOL IV ; Start 07/18/18 at 17:30 Ondansetron HCl (Zofran Inj) 4 mg Q6H PRN IV NAUSEA AND/OR VOMITING; Start 07/18/18 at 17:30 Acetaminophen (Tylenol Tab) 650 mg Q6H PRN PO PAIN LEVEL 1-3 OR FEVER; Start 07/18/18 at 17:30 Atorvastatin Calcium (Lipitor) 40 mg QHS PO Last administered on 08/01/18 21:14; Admin Dose 40 MG; Start 07/18/18 at 21:00 Baclofen (Lioresal) 10 mg BID PO Last administered on 08/02/18 09:44; Admin Dose 10 MG; Start 07/18/18 at 21:00 Docusate Sodium (Colace) 100 mg BID PRN PO CONSTIPATION; Start 07/18/18 at 17:30 Doxazosin Mesylate (Cardura) 4 mg HS PO Last administered on 08/01/18 21:00; Admin Dose 4 MG; Start 07/18/18 at 21:00 Finasteride (Proscar) 5 mg DAILY PO Last administered on 08/02/18 09:44; Admin Dose 5 MG; Start 07/19/18 at 09:00 Haloperidol (Haldol) 5 mg Q2H PRN IM AGITATION Last administered on 07/19/18at 02:37; Admin Dose 5 MG; Start 07/18/18 at 23:30 Propofol 100 ml @ 1.909 mls/ hr Q12H IV Last administered on 07/29/18 21:42; Admin Dose 7.637 MLS/HR; Start 07/19/18 at 14:00; Status Hold Allopurinol (Zyloprim) 100 mg DAILY PO Last administered on 08/02/18 09:44; Admin Dose 100 MG; Start 07/21/18 at 09:00 Docusate Sodium (Colace Liquid Cup) 100 mg BID GTB Last administered on 08/02/18 09:45; Admin Dose 100 MG; Start 07/20/18 at 21:00 Fentanyl 100 ml @ 2.5 mls/hr TITRATE IV Last administered on 07/26/18 04:53; Admin Dose 5 MLS/HR; Start 07/21/18 at 08:00; Status Hold Morphine Sulfate (morphine) 6 mg Q4H PRN PO PAIN LEVEL 7-10 Last administered on 08/02/18 10:01; Admin Dose 6 MG; Start 07/21/18 at 11:00 Nifedipine (Procardia) 20 mg TID NGT Last administered on 08/02/18 09:44; Admin Dose 20 MG; Start 07/23/18 at 14:30 Lorazepam (Ativan) 1 mg Q4H PRN GTB AGITATION Last administered on 07/31/18 21:25; Admin Dose 1 MG; Start 07/24/18 at 11:00 Insulin Aspart (Novolog Insulin Pen) NOVOLOG *MILD* ALGORI... Q4 SC Last administered on 08/02/18 01:35; Admin Dose 1 UNIT; Start 07/26/18 at 17:00 Miscellaneous Information 1 ea NOTE XX ; Start 07/26/18 at 14:30 Glucose (Glutose) 15 gm Q15M PRN PO DECREASED GLUCOSE; Start 07/26/18 at 14:30 Glucose (Glutose) 22.5 gm Q15M PRN PO DECREASED GLUCOSE; Start 07/26/18 at 14:30 Dextrose (D50w Syringe) 25 ml Q15M PRN IV DECREASED GLUCOSE; Start 07/26/18 at 14:30 Dextrose (D50w Syringe) 50 ml Q15M PRN IV DECREASED GLUCOSE; Start 07/26/18 at 14:30 Glucagon (Glucagen) 1 mg Q15M PRN IM DECREASED GLUCOSE; Start 07/26/18 at 14:30 Glucose (Glutose) 15 gm Q15M PRN BUCCAL DECREASED GLUCOSE; Start 07/26/18 at 14:30 Heparin Sodium (Porcine) (Heparin (1000 Units/ml)) 3,000 unit AFTER DIALYSIS CATHETER Last administered on 08/01/18at 13:06; Admin Dose 3,000 UNIT; Start 07/29/18 at 09:30 Famotidine (Pepcid) 20 mg DAILY PO Last administered on 08/02/18at 09:44; Admin Dose 20 MG; Start 07/31/18 at 09:00 Heparin Sodium (Porcine) (Heparin (5000 Units/1ml)) 5,000 unit BID SC Last administered on 08/01/18at 21:15; Admin Dose 5,000 UNIT; Start 08/01/18 at 09:00 Fentanyl (Sublimaze) 25 mcg Q2H PRN IV SEVERE PAIN LEVEL 7-10; Start 08/02/18 at 12:30 JENNIFER RICHARD Aug 02, 2018 14:12
--- NOTE | 2018-08-02 14:37 | PN ---
Date/Time of Note Date/Time of Note DATE: 08/02/18 TIME: 14:36 Assessment/Plan Lines/Catheters IV Catheter Type (from Nrsg): KEI Cath Owens in Place (from Nrsg): Yes Assessment/Plan Assessment/Plan SP dialysis cath placement Will continue Dialysis Subjective 24 Hr Interval Summary Constitutional: improved Pain Control: mild Exam/Review of Systems Vital Signs Vitals Vital Signs Date Temp Pulse Resp B/P (MAP) Pulse Ox O2 O2 Flow FiO2 Time Delivery Rate 08/02/18 60 12:00 08/02/18 140/64 98 11:15 (89) 08/02/18 Mechanical 11:00 Ventilator 08/02/18 98.7 08:00 08/02/18 30 08:00 Intake and Output 08/01/18 08/01/18 08/02/18 1515:00 23:00 07:00 IntakeIntake Total 380 ml 580 ml 135 ml OutputOutput Total 3025 ml 25 ml 25 ml BalanceBalance -2645 ml 555 ml 110 ml Exam Eyes: nl conjunctiva, EOMI, nl lids, nl sclera ENMT: nl external ears & nose, nl lips & teeth, nl nasal mucosa & septum, mucosa pink and moist Neck: supple, non-tender Respiratory: clear to auscultation, normal air movement Cardiovascular: regular rate and rhythm, nl pulses Gastrointestinal: soft, nl liver, spleen, non-tender Musculoskeletal: nl extremities to inspection, nl gait and stance Results Result Diagram: 08/02/1843908/02/18439 OPAL RODRIGUEZ MD Aug 02, 2018 14:37
--- NOTE | 2018-08-02 17:07 | PREAC ---
Date/Time of Note Date/Time of Note DATE: 08/02/18 TIME: 17:02 Anesthesia Eval and Record Evaluation Time Pre-Procedure Interview DATE: 08/02/18 TIME: 17:02 Age 83 Sex male NPO: 8 hrs Preoperative diagnosis Respiratory Failure Planned procedure Tracheostomy Past Medical History Past Medical History: Includes Cardio: HTN, Dyslipidemia Pulm: COPD, Sleep Apnea Surgery & Anesthesia Issues No known issue Meds Anticoagulation: No Beta Brit within 24 hr: No Reason Beta Brit not given: Pt. not on B-Brit Reported Medications Doxazosin Mesylate* (Doxazosin Mesylate*) 4 Mg Tablet, 4 MG PO HS, TAB 07/18/18 Pregabalin* (Lyrica*) 50 Mg Capsule, 50 MG PO DAILY, CAP 07/18/18 Baclofen* (Baclofen*) 10 Mg Tablet, 10 MG PO BID, TAB 07/18/18 Docusate Sodium* (Colace*) 100 Mg Capsule, 100 MG PO BID, #60 CAP 07/18/18 Finasteride* (Finasteride*) 5 Mg Tablet, 5 MG PO DAILY, TAB 07/18/18 Donepezil* (Donepezil*) 5 Mg Tablet, 5 MG PO DAILY, #30 TAB 07/18/18 Fluticasone Propionate* (Fluticasone Propionate* Nasal) 50 Mcg/Crook - 16 Gm Crook.susp, 1 SPRAY NASAL DAILY, #1 BOTTLE TO EACH NOSTRIL 07/18/18 Hydrochlorothiazide* (Hydrochlorothiazide*) 12.5 Mg Tablet, 12.5 MG PO DAILY, #30 TAB 07/18/18 Docusate Sodium* (Doc-Q-Lace*) 100 Mg Capsule, 100 MG PO BID PRN for CONSTIPATION, CAP 02/13/18 Nifedipine* (Afeditab CR*) 30 Mg Tablet.sa, 30 MG PO BID, #30 TAB.SA 02/13/18 Pantoprazole* (Protonix*) 40 Mg Tablet.dr, 40 MG PO DAILY, TAB 02/13/18 Atorvastatin* (Atorvastatin*) 40 Mg Tablet, 40 MG PO QHS, #30 TAB 02/13/18 Current Medications IV Flush (NS 3 ml) 3 ml PER PROTOCOL IV ; Start 07/18/18 at 17:30 Ondansetron HCl (Zofran Inj) 4 mg Q6H PRN IV NAUSEA AND/OR VOMITING; Start 07/18/18 at 17:30 Acetaminophen (Tylenol Tab) 650 mg Q6H PRN PO PAIN LEVEL 1-3 OR FEVER; Start 07/18/18 at 17:30 Atorvastatin Calcium (Lipitor) 40 mg QHS PO Last administered on 08/01/18 21:14; Admin Dose 40 MG; Start 07/18/18 at 21:00 Baclofen (Lioresal) 10 mg BID PO Last administered on 08/02/18 09:44; Admin Dose 10 MG; Start 07/18/18 at 21:00 Docusate Sodium (Colace) 100 mg BID PRN PO CONSTIPATION; Start 07/18/18 at 17:30 Doxazosin Mesylate (Cardura) 4 mg HS PO Last administered on 08/01/18 21:00; Admin Dose 4 MG; Start 07/18/18 at 21:00 Finasteride (Proscar) 5 mg DAILY PO Last administered on 08/02/18 09:44; Admin Dose 5 MG; Start 07/19/18 at 09:00 Haloperidol (Haldol) 5 mg Q2H PRN IM AGITATION Last administered on 07/19/18at 02:37; Admin Dose 5 MG; Start 07/18/18 at 23:30 Propofol 100 ml @ 1.909 mls/ hr Q12H IV Last administered on 07/29/18 21:42; Admin Dose 7.637 MLS/HR; Start 07/19/18 at 14:00; Status Hold Allopurinol (Zyloprim) 100 mg DAILY PO Last administered on 08/02/18 09:44; Admin Dose 100 MG; Start 07/21/18 at 09:00 Docusate Sodium (Colace Liquid Cup) 100 mg BID GTB Last administered on 08/02/18 09:45; Admin Dose 100 MG; Start 07/20/18 at 21:00 Fentanyl 100 ml @ 2.5 mls/hr TITRATE IV Last administered on 07/26/18 04:53; Admin Dose 5 MLS/HR; Start 07/21/18 at 08:00; Status Hold Morphine Sulfate (morphine) 6 mg Q4H PRN PO PAIN LEVEL 7-10 Last administered on 08/02/18 10:01; Admin Dose 6 MG; Start 07/21/18 at 11:00 Nifedipine (Procardia) 20 mg TID NGT Last administered on 08/02/18 14:48; Admin Dose 20 MG; Start 07/23/18 at 14:30 Lorazepam (Ativan) 1 mg Q4H PRN GTB AGITATION Last administered on 07/31/18 21:25; Admin Dose 1 MG; Start 07/24/18 at 11:00 Insulin Aspart (Novolog Insulin Pen) NOVOLOG *MILD* ALGORI... Q4 SC Last administered on 08/02/18 01:35; Admin Dose 1 UNIT; Start 07/26/18 at 17:00 Miscellaneous Information 1 ea NOTE XX ; Start 07/26/18 at 14:30 Glucose (Glutose) 15 gm Q15M PRN PO DECREASED GLUCOSE; Start 07/26/18 at 14:30 Glucose (Glutose) 22.5 gm Q15M PRN PO DECREASED GLUCOSE; Start 07/26/18 at 14:30 Dextrose (D50w Syringe) 25 ml Q15M PRN IV DECREASED GLUCOSE; Start 07/26/18 at 14:30 Dextrose (D50w Syringe) 50 ml Q15M PRN IV DECREASED GLUCOSE; Start 07/26/18 at 14:30 Glucagon (Glucagen) 1 mg Q15M PRN IM DECREASED GLUCOSE; Start 07/26/18 at 14:30 Glucose (Glutose) 15 gm Q15M PRN BUCCAL DECREASED GLUCOSE; Start 07/26/18 at 14:30 Heparin Sodium (Porcine) (Heparin (1000 Units/ml)) 3,000 unit AFTER DIALYSIS CATHETER Last administered on 08/01/18 13:06; Admin Dose 3,000 UNIT; Start 07/29/18 at 09:30 Famotidine (Pepcid) 20 mg DAILY PO Last administered on 08/02/18 09:44; Admin Dose 20 MG; Start 07/31/18 at 09:00 Heparin Sodium (Porcine) (Heparin (5000 Units/1ml)) 5,000 unit BID SC Last administered on 08/01/18 21:15; Admin Dose 5,000 UNIT; Start 08/01/18 at 09:00 Fentanyl (Sublimaze) 25 mcg Q2H PRN IV SEVERE PAIN LEVEL 7-10; Start 08/02/18 at 12:30 Meds reviewed: Yes Allergies Coded Allergies: No Known Allergy (Unverified , 07/18/18) Allergies Reviewed: Yes Labs/Studies Labs Reviewed: Reviewed by anesthesiologist Result Diagram: 08/02/180 08/02/18 044 Laboratory Tests 08/02/18 04:40 test: N/A Studies: ECG Pre-procedure Exam Last vitals Vital Signs Date Temp Pulse Resp B/P (MAP) Pulse Ox O2 O2 Flow FiO2 Time Delivery Rate 08/02/18 60 16:00 08/02/18 98.9 19 113/54 100 Mechanical 16:00 (73) Ventilator 08/02/18 30 08:00 Airway: Adequate mouth opening, Adequate thyromental dist Mallampati: Mallampati III Teeth: Normal Lung: Abnormal Heart: Normal (severe COPD) ASA Physical Status ASA physical status: 4 Emergency: None Planned Anesthetic General/MAC: ETT Planned Pain Management Parenteral pain med Pre-operative Attestations Prior to commencing anesthesia and surgery, the patient was re-evaluated, there was verification of: *The patient's identity *The results of appropriate recent lab work and preoperative vital signs *The above evaluation not changing prior to induction *Anesthetic plan, risk benefits, alternative and complications discussed with patient/family; questions answered; patient/family understands, accepts and wishes to proceed. LENORE HANKINS MD Aug 02, 2018 17:07
--- NOTE | 2018-08-02 17:26 | CONS ---
Date/Time of Note Date/Time of Note DATE: 08/02/18 TIME: 17:24 Assessment/Plan Assessment/Plan Assessment/Plan Respiratory failure requiring prolonged mechanical ventilation. Will proceed with tracheostomy today. Surgery discussed with daughter who has signed consent. Result Diagram: 08/02/18 0440 08/02/18 0440 Results 24hrs Laboratory Tests Test 08/01/18 21:12 08/02/18 01:31 08/02/18 04:40 08/02/18 04:43 Bedside Glucose 154 143 125 White Blood Count 11.7 H Red Blood Count 2.74 L Hemoglobin 8.5 L Hematocrit 25.5 L Mean Corpuscular Volume 93.1 Mean Corpuscular 31.0 Hemoglobin Mean Corpuscular 33.3 Hemoglobin Concent Red Cell Distribution 14.5 Width Platelet Count 157 Mean Platelet Volume 13.2 H Immature Granulocytes % 0.800 H Neutrophils % 88.4 H Lymphocytes % 3.3 L Monocytes % 6.7 Eosinophils % 0.5 Basophils % 0.3 Nucleated Red Blood 0.0 Cells % Immature Granulocytes # 0.090 H Neutrophils # 10.3 H Lymphocytes # 0.4 L Monocytes # 0.8 Eosinophils # 0.1 Basophils # 0.0 Nucleated Red Blood 0.0 Cells # Prothrombin Time 14.8 Prothrombin Time Ratio 1.2 INR International 1.15 Normalized Ratio Activated 36.4 H Partial Thromboplast Time Sodium Level 138 Potassium Level 4.5 Chloride Level 98 Carbon Dioxide Level 27 Anion Gap 13 Blood Urea Nitrogen 82 H Creatinine 3.27 H Est Glomerular Filtrat Rate mL/min Glucose Level 121 Calcium Level 8.4 Test 08/02/18 08:47 08/02/18 14:46 08/02/18 17:20 Bedside Glucose 128 106 109 Consultation Date/Type/Reason Admit Date/Time Jul 18, 2018 at 16:57 Date of Consultation: Aug 02, 2018 Type of Consult ENT Reason for Consultation Tracheostomy Requesting Provider: RUBÉN BENITO MD Hx of Present Illness Pt with PNA, renal failure and respiratory failure. Not expected to be weaned from mechanical ventilation in near future. Tracheostomy has been requested by ICU team. Subjective hx not possible: pt non-verbal, pt critical Past Medical History Medical History: coronary artery disease, hypertension Medications Current Medications IV Flush (NS 3 ml) 3 ml PER PROTOCOL IV ; Start 07/18/18 at 17:30 Ondansetron HCl (Zofran Inj) 4 mg Q6H PRN IV NAUSEA AND/OR VOMITING; Start 07/18/18 at 17:30 Acetaminophen (Tylenol Tab) 650 mg Q6H PRN PO PAIN LEVEL 1-3 OR FEVER; Start 07/18/18 at 17:30 Atorvastatin Calcium (Lipitor) 40 mg QHS PO Last administered on 08/01/18 21:14; Admin Dose 40 MG; Start 07/18/18 at 21:00 Baclofen (Lioresal) 10 mg BID PO Last administered on 08/02/18 09:44; Admin Dose 10 MG; Start 07/18/18 at 21:00 Docusate Sodium (Colace) 100 mg BID PRN PO CONSTIPATION; Start 07/18/18 at 17:30 Doxazosin Mesylate (Cardura) 4 mg HS PO Last administered on 08/01/18 21:00; Admin Dose 4 MG; Start 07/18/18 at 21:00 Finasteride (Proscar) 5 mg DAILY PO Last administered on 08/02/18 09:44; Admin Dose 5 MG; Start 07/19/18 at 09:00 Haloperidol (Haldol) 5 mg Q2H PRN IM AGITATION Last administered on 07/19/18at 02:37; Admin Dose 5 MG; Start 07/18/18 at 23:30 Propofol 100 ml @ 1.909 mls/ hr Q12H IV Last administered on 07/29/18 21:42; Admin Dose 7.637 MLS/HR; Start 07/19/18 at 14:00; Status Hold Allopurinol (Zyloprim) 100 mg DAILY PO Last administered on 08/02/18 09:44; Admin Dose 100 MG; Start 07/21/18 at 09:00 Docusate Sodium (Colace Liquid Cup) 100 mg BID GTB Last administered on 08/02/18 09:45; Admin Dose 100 MG; Start 07/20/18 at 21:00 Fentanyl 100 ml @ 2.5 mls/hr TITRATE IV Last administered on 07/26/18at 04:53; Admin Dose 5 MLS/HR; Start 07/21/18 at 08:00; Status Hold Morphine Sulfate (morphine) 6 mg Q4H PRN PO PAIN LEVEL 7-10 Last administered on 08/02/18 10:01; Admin Dose 6 MG; Start 07/21/18 at 11:00 Nifedipine (Procardia) 20 mg TID NGT Last administered on 08/02/18 14:48; Admin Dose 20 MG; Start 07/23/18 at 14:30 Lorazepam (Ativan) 1 mg Q4H PRN GTB AGITATION Last administered on 07/31/18 21:25; Admin Dose 1 MG; Start 07/24/18 at 11:00 Insulin Aspart (Novolog Insulin Pen) NOVOLOG *MILD* ALGORI... Q4 SC Last administered on 08/02/18 01:35; Admin Dose 1 UNIT; Start 07/26/18 at 17:00 Miscellaneous Information 1 ea NOTE XX ; Start 07/26/18 at 14:30 Glucose (Glutose) 15 gm Q15M PRN PO DECREASED GLUCOSE; Start 07/26/18 at 14:30 Glucose (Glutose) 22.5 gm Q15M PRN PO DECREASED GLUCOSE; Start 07/26/18 at 14:30 Dextrose (D50w Syringe) 25 ml Q15M PRN IV DECREASED GLUCOSE; Start 07/26/18 at 14:30 Dextrose (D50w Syringe) 50 ml Q15M PRN IV DECREASED GLUCOSE; Start 07/26/18 at 14:30 Glucagon (Glucagen) 1 mg Q15M PRN IM DECREASED GLUCOSE; Start 07/26/18 at 14:30 Glucose (Glutose) 15 gm Q15M PRN BUCCAL DECREASED GLUCOSE; Start 07/26/18 at 14:30 Heparin Sodium (Porcine) (Heparin (1000 Units/ml)) 3,000 unit AFTER DIALYSIS CATHETER Last administered on 08/01/18 13:06; Admin Dose 3,000 UNIT; Start 07/29/18 at 09:30 Famotidine (Pepcid) 20 mg DAILY PO Last administered on 08/02/18 09:44; Admin Dose 20 MG; Start 07/31/18 at 09:00 Heparin Sodium (Porcine) (Heparin (5000 Units/1ml)) 5,000 unit BID SC Last administered on 08/01/18 21:15; Admin Dose 5,000 UNIT; Start 08/01/18 at 09:00 Fentanyl (Sublimaze) 25 mcg Q2H PRN IV SEVERE PAIN LEVEL 7-10; Start 08/02/18 at 12:30 Allergies: Coded Allergies: No Known Allergy (Unverified , 07/18/18) Past Surgical History Past Surgical Hx: other (Cardiac Stent placement , Pacemaker placement ) Social History Alcohol Use: none Smoking Status: Never smoker Drug Use: none Exam/Review of Systems Vital Signs Vitals Vital Signs Date Temp Pulse Resp B/P (MAP) Pulse Ox O2 O2 Flow FiO2 Time Delivery Rate 08/02/18 60 16 132/72 98 Mechanical 17:00 (92) Ventilator 08/02/18 98.9 16:00 08/02/18 30 08:00 Intake and Output 08/01/18 08/01/18 08/02/18 1414:59 22:59 06:59 IntakeIntake Total 380 ml 580 ml 170 ml OutputOutput Total 3025 ml 25 ml 20 ml BalanceBalance -2645 ml 555 ml 150 ml Exam Constitutional: other (Intubated and sedated) Head: normocephalic, atraumatic ENMT: nl external ears & nose, nl lips & teeth, nl nasal mucosa & septum Neck: supple, non-tender Medications Medications Current Medications IV Flush (NS 3 ml) 3 ml PER PROTOCOL IV ; Start 07/18/18 at 17:30 Ondansetron HCl (Zofran Inj) 4 mg Q6H PRN IV NAUSEA AND/OR VOMITING; Start 07/18/18 at 17:30 Acetaminophen (Tylenol Tab) 650 mg Q6H PRN PO PAIN LEVEL 1-3 OR FEVER; Start 07/18/18 at 17:30 Atorvastatin Calcium (Lipitor) 40 mg QHS PO Last administered on 08/01/18 21:14; Admin Dose 40 MG; Start 07/18/18 at 21:00 Baclofen (Lioresal) 10 mg BID PO Last administered on 08/02/18 09:44; Admin Dose 10 MG; Start 07/18/18 at 21:00 Docusate Sodium (Colace) 100 mg BID PRN PO CONSTIPATION; Start 07/18/18 at 17:30 Doxazosin Mesylate (Cardura) 4 mg HS PO Last administered on 08/01/18 21:00; Admin Dose 4 MG; Start 07/18/18 at 21:00 Finasteride (Proscar) 5 mg DAILY PO Last administered on 08/02/18 09:44; Admin Dose 5 MG; Start 07/19/18 at 09:00 Haloperidol (Haldol) 5 mg Q2H PRN IM AGITATION Last administered on 07/19/18at 02:37; Admin Dose 5 MG; Start 07/18/18 at 23:30 Propofol 100 ml @ 1.909 mls/ hr Q12H IV Last administered on 07/29/18 21:42; Admin Dose 7.637 MLS/HR; Start 07/19/18 at 14:00; Status Hold Allopurinol (Zyloprim) 100 mg DAILY PO Last administered on 08/02/18 09:44; Admin Dose 100 MG; Start 07/21/18 at 09:00 Docusate Sodium (Colace Liquid Cup) 100 mg BID GTB Last administered on 08/02/18 09:45; Admin Dose 100 MG; Start 07/20/18 at 21:00 Fentanyl 100 ml @ 2.5 mls/hr TITRATE IV Last administered on 07/26/18 04:53; Admin Dose 5 MLS/HR; Start 07/21/18 at 08:00; Status Hold Morphine Sulfate (morphine) 6 mg Q4H PRN PO PAIN LEVEL 7-10 Last administered on 08/02/18 10:01; Admin Dose 6 MG; Start 07/21/18 at 11:00 Nifedipine (Procardia) 20 mg TID NGT Last administered on 08/02/18 14:48; Admin Dose 20 MG; Start 07/23/18 at 14:30 Lorazepam (Ativan) 1 mg Q4H PRN GTB AGITATION Last administered on 07/31/18 21:25; Admin Dose 1 MG; Start 07/24/18 at 11:00 Insulin Aspart (Novolog Insulin Pen) NOVOLOG *MILD* ALGORI... Q4 SC Last administered on 08/02/18 01:35; Admin Dose 1 UNIT; Start 07/26/18 at 17:00 Miscellaneous Information 1 ea NOTE XX ; Start 07/26/18 at 14:30 Glucose (Glutose) 15 gm Q15M PRN PO DECREASED GLUCOSE; Start 07/26/18 at 14:30 Glucose (Glutose) 22.5 gm Q15M PRN PO DECREASED GLUCOSE; Start 07/26/18 at 14:30 Dextrose (D50w Syringe) 25 ml Q15M PRN IV DECREASED GLUCOSE; Start 07/26/18 at 14:30 Dextrose (D50w Syringe) 50 ml Q15M PRN IV DECREASED GLUCOSE; Start 07/26/18 at 14:30 Glucagon (Glucagen) 1 mg Q15M PRN IM DECREASED GLUCOSE; Start 07/26/18 at 14:30 Glucose (Glutose) 15 gm Q15M PRN BUCCAL DECREASED GLUCOSE; Start 07/26/18 at 14:30 Heparin Sodium (Porcine) (Heparin (1000 Units/ml)) 3,000 unit AFTER DIALYSIS CATHETER Last administered on 08/01/18at 13:06; Admin Dose 3,000 UNIT; Start 07/29/18 at 09:30 Famotidine (Pepcid) 20 mg DAILY PO Last administered on 08/02/18at 09:44; Admin Dose 20 MG; Start 07/31/18 at 09:00 Heparin Sodium (Porcine) (Heparin (5000 Units/1ml)) 5,000 unit BID SC Last administered on 08/01/18at 21:15; Admin Dose 5,000 UNIT; Start 08/01/18 at 09:00 Fentanyl (Sublimaze) 25 mcg Q2H PRN IV SEVERE PAIN LEVEL 7-10; Start 08/02/18 at 12:30 KIARA CUELLAR MD Aug 02, 2018 17:26
--- NOTE | 2018-08-02 17:27 | HPN ---
Date/Time of Note Date/Time of Note DATE: 08/02/18 TIME: 17:27 Interval H&P Admission Note Pt. seen H&P reviewed: No system changes KIARA CUELLAR MD Aug 02, 2018 17:27
[2018-08-02] MEDS ORDERED: FENTAnyl 50 MCG/ML VIAL ONE (17:32)
[2018-08-02] MEDS ORDERED: LIDOCAINE 1% (MPF) 30 ML INJ ONE (17:33)
[2018-08-02] MEDS ORDERED: MIDAZOLAM 1 MG/ML 2 ML INJ ONE (18:07)
--- NOTE | 2018-08-02 18:10 | SIPON ---
Date/Time of Note Date/Time of Note DATE: 08/02/18 TIME: 18:09 Operative Report Preoperative Diagnosis Respiratory failure Postoperative Diagnosis same Operation/Procedure Performed Tracheostomy with abhishek flap. Surgeon see signature line shop assistant none Anesthesia: general Estimated blood loss: none Transfusion Required none Specimen none Grafts/Implants none Complications none KIARA CUELLAR MD Aug 02, 2018 18:10
--- NOTE | 2018-08-02 18:15 | OPR ---
Date/Time of Note Date/Time of Note DATE: 08/02/18 TIME: 18:10 Operative Report Procedure Date: Aug 02, 2018 Preoperative Diagnosis Respiratory failure Postoperative Diagnosis same Operation/Procedure Performed Tracheostomy with abhishek flap Surgeon see signature line Solar Engineer none Anesthesia Type: general Anesthesiologist: LENORE HANKINS MD Estimated Blood Loss: none Transfusion none Specimen none Grafts/Implants none Complications none Pt Condition Post Procedure: stable Disposition: PACU, other Indications 83 year old male with respiratory failure and dependence on mechanical ventilation. The ICU team has determined that placement of a tracheostomy is in the patient's best interest. The risks, benefits and alternative to surgery were discussed with the patient's daughter who signed consent. Procedure Description The patient was prepped and draped in the usual sterile fashion. A 15 blade was used to make a 2 cm incision 2 cm below the cricoid cartilage. The incision was carried down to the strap muscles. The strap muscles were divided in the midline. The trachea was visualized. An incision was made between the 2nd and 3rd tracheal rings. A flap was created with metzenbaum scissors. The flap was suture to the inferior skin edge with a 3-0 chromic suture. The trachea was suctioned. The endotracheal tube was withdrawan. A #8 cuffed Shiley tube was placed and secured with 2-0 silk sutures. The patient was then brought back to the ICU in stable condition. KIARA CUELLAR MD Aug 02, 2018 18:15
--- NOTE | 2018-08-02 18:17 | PAC ---
Date/Time of Note Date/Time of Note DATE: 08/02/18 TIME: 18:16 Post-Anesthesia Notes Post-Anesthesia Note Last documented vital signs Vital Signs Date Temp Pulse Resp B/P (MAP) Pulse Ox O2 O2 Flow FiO2 Time Delivery Rate 08/02/18 60 25 109/58 17:15 (75) 08/02/18 100 30 17:15 08/02/18 Mechanical 17:00 Ventilator 08/02/18 98.9 16:00 Activity: WNL Respiratory function: WNL Cardiovascular function: WNL Mental status: Baseline Pain reasonably controlled: Yes Hydration appropriate: Yes Nausea/Vomiting absent: Yes Comments BP:105/56, Pulse:89, spo2:100%, T:98,8 LENORE HANKINS MD Aug 02, 2018 18:17
[2018-08-02] MEDS: ATORVASTATIN 40 MG TAB PO SCH (20:50)
[2018-08-02] MEDS: DOXAZOSIN 4 MG TAB PO SCH (21:00)
[2018-08-03] VITALS (60 sets, daily range): BP systolic 98–157; BP diastolic 53–78; PULSE 59–64; RESP 13–24
[2018-08-03] MEDS: INSULIN ASPART [NOVOLOG] 3 ML PEN SC SCH ×6 (01:00→20:54)
[2018-08-03] MEDS: DOCUSATE SODIUM 10 MG/ML (10ML CUP) GTB SCH ×2 (08:36→20:50)
[2018-08-03] MEDS: FINASTERIDE 5 MG TAB PO SCH (08:36)
[2018-08-03] MEDS: NIFEdipine 10 MG CAP NGT SCH ×3 (08:36→20:50)
[2018-08-03] MEDS: ALLOPURINOL 100 MG TAB PO SCH (08:37)
[2018-08-03] MEDS: FAMOTIDINE 20 MG TAB PO SCH (08:37)
[2018-08-03] MEDS: BACLOFEN 10 MG TAB PO SCH ×2 (08:37→20:51)
--- NOTE | 2018-08-03 10:47 | CONS ---
Date/Time of Note Date/Time of Note DATE: 08/03/18 TIME: 10:46 Consult Date/Type/Reason Admit Date/Time Jul 18, 2018 at 16:57 Initial Consult Date 07/19/18 Type of Consultation: Pulm/CCM Requesting Provider: RUBÉN BENITO MD Subjective s/p trach yesterday. Remains unresponsive on the vent. Objective Vital Signs Date Temp Pulse Resp B/P (MAP) Pulse Ox O2 O2 Flow FiO2 Time Delivery Rate 08/03/18 60 17 108/55 100 Mechanical 10:00 (72) Ventilator 08/03/18 30 08:00 08/03/18 98.5 07:45 Intake and Output 08/02/18 08/02/18 08/03/18 1414:59 22:59 06:59 IntakeIntake Total 120 ml 290 ml 0 ml OutputOutput Total 40 ml 25 ml 50 ml BalanceBalance 80 ml 265 ml -50 ml Exam NECK: Supple. No JVD or lymphadenopathy. + trach with mild oozing CARDIAC EXAM: Paced S1, S2. No added sounds or murmurs. CHEST: Coarse rhonchi B/L ABDOMEN: Soft, nontender. No guarding or rebound. EXTREMITIES: No cyanosis, clubbing or edema. NEUROLOGIC: Generalized weakness. Obtunded. Results/Medications Result Diagram: 08/03/18 0435 08/03/18 0435 Results 24 hrs Laboratory Tests Test 08/02/18 14:46 08/02/18 17:20 08/02/18 20:45 08/03/18 01:10 Bedside Glucose 106 109 113 91 Test 08/03/18 04:35 08/03/18 04:55 08/03/18 08:39 White Blood Count 9.9 Red Blood Count 2.56 L Hemoglobin 8.0 L Hematocrit 24.7 L Mean Corpuscular Volume 96.5 Mean Corpuscular 31.3 Hemoglobin Mean Corpuscular 32.4 Hemoglobin Concent Red Cell Distribution 14.7 H Width Platelet Count 156 Mean Platelet Volume 13.3 H Immature Granulocytes % 0.500 H Neutrophils % 88.7 H Lymphocytes % 3.0 L Monocytes % 5.9 Eosinophils % 1.6 Basophils % 0.3 Nucleated Red Blood 0.0 Cells % Immature Granulocytes # 0.050 H Neutrophils # 8.8 H Lymphocytes # 0.3 L Monocytes # 0.6 Eosinophils # 0.2 Basophils # 0.0 Nucleated Red Blood 0.0 Cells # Sodium Level 138 Potassium Level 5.0 Chloride Level 99 Carbon Dioxide Level 21 Anion Gap 18 H Blood Urea Nitrogen 109 H Creatinine 4.27 #H Est Glomerular Filtrat Rate mL/min Glucose Level 92 Calcium Level 8.1 L Bedside Glucose 90 93 Medications Current Medications IV Flush (NS 3 ml) 3 ml PER PROTOCOL IV ; Start 07/18/18 at 17:30 Ondansetron HCl (Zofran Inj) 4 mg Q6H PRN IV NAUSEA AND/OR VOMITING; Start 07/18/18 at 17:30 Acetaminophen (Tylenol Tab) 650 mg Q6H PRN PO PAIN LEVEL 1-3 OR FEVER; Start 07/18/18 at 17:30 Atorvastatin Calcium (Lipitor) 40 mg QHS PO Last administered on 08/02/18 20:50; Admin Dose 40 MG; Start 07/18/18 at 21:00 Baclofen (Lioresal) 10 mg BID PO Last administered on 08/03/18 08:37; Admin Dose 10 MG; Start 07/18/18 at 21:00 Docusate Sodium (Colace) 100 mg BID PRN PO CONSTIPATION; Start 07/18/18 at 17:30 Doxazosin Mesylate (Cardura) 4 mg HS PO Last administered on 08/01/18 21:00; Admin Dose 4 MG; Start 07/18/18 at 21:00 Finasteride (Proscar) 5 mg DAILY PO Last administered on 08/03/18 08:36; Admin Dose 5 MG; Start 07/19/18 at 09:00 Haloperidol (Haldol) 5 mg Q2H PRN IM AGITATION Last administered on 07/19/18at 02:37; Admin Dose 5 MG; Start 07/18/18 at 23:30 Propofol 100 ml @ 1.909 mls/ hr Q12H IV Last administered on 07/29/18 21:42; Admin Dose 7.637 MLS/HR; Start 07/19/18 at 14:00; Status Hold Allopurinol (Zyloprim) 100 mg DAILY PO Last administered on 08/03/18 08:37; Admin Dose 100 MG; Start 07/21/18 at 09:00 Docusate Sodium (Colace Liquid Cup) 100 mg BID GTB Last administered on 08/03/18 08:36; Admin Dose 100 MG; Start 07/20/18 at 21:00 Fentanyl 100 ml @ 2.5 mls/hr TITRATE IV Last administered on 07/26/18 04:53; Admin Dose 5 MLS/HR; Start 07/21/18 at 08:00; Status Hold Morphine Sulfate (morphine) 6 mg Q4H PRN PO PAIN LEVEL 7-10 Last administered on 08/02/18 10:01; Admin Dose 6 MG; Start 07/21/18 at 11:00 Nifedipine (Procardia) 20 mg TID NGT Last administered on 08/03/18 08:36; Admin Dose 20 MG; Start 07/23/18 at 14:30 Lorazepam (Ativan) 1 mg Q4H PRN GTB AGITATION Last administered on 07/31/18 21:25; Admin Dose 1 MG; Start 07/24/18 at 11:00 Insulin Aspart (Novolog Insulin Pen) NOVOLOG *MILD* ALGORI... Q4 SC Last admini stered on 08/02/18 01:35; Admin Dose 1 UNIT; Start 07/26/18 at 17:00 Miscellaneous Information 1 ea NOTE XX ; Start 07/26/18 at 14:30 Glucose (Glutose) 15 gm Q15M PRN PO DECREASED GLUCOSE; Start 07/26/18 at 14:30 Glucose (Glutose) 22.5 gm Q15M PRN PO DECREASED GLUCOSE; Start 07/26/18 at 14:30 Dextrose (D50w Syringe) 25 ml Q15M PRN IV DECREASED GLUCOSE; Start 07/26/18 at 14:30 Dextrose (D50w Syringe) 50 ml Q15M PRN IV DECREASED GLUCOSE; Start 07/26/18 at 14:30 Glucagon (Glucagen) 1 mg Q15M PRN IM DECREASED GLUCOSE; Start 07/26/18 at 14:30 Glucose (Glutose) 15 gm Q15M PRN BUCCAL DECREASED GLUCOSE; Start 07/26/18 at 14:30 Heparin Sodium (Porcine) (Heparin (1000 Units/ml)) 3,000 unit AFTER DIALYSIS CATHETER Last administered on 08/01/18 13:06; Admin Dose 3,000 UNIT; Start 07/29/18 at 09:30 Famotidine (Pepcid) 20 mg DAILY PO Last administered on 08/03/18at 08:37; Admin Dose 20 MG; Start 07/31/18 at 09:00 Heparin Sodium (Porcine) (Heparin (5000 Units/1ml)) 5,000 unit BID SC Last administered on 08/01/18at 21:15; Admin Dose 5,000 UNIT; Start 08/01/18 at 09:00 Fentanyl (Sublimaze) 25 mcg Q2H PRN IV SEVERE PAIN LEVEL 7-10; Start 08/02/18 at 12:30 Assessment/Plan Additional Assessment/Plan IMP: 1. Acute hypoxemic respiratory failure 2/2 multifocal pneumonia; cannot exclude co-existing bland hemorrhage/volume overload--now failure to wean 2. Encephalopathy toxic metabolic 3. Anemia 4. MYKE--FeUrea c/w intrinsic renal cause 5. Dysphagia 6. Anemia RECS: 1. Vent support 2. HD/UF as per Renal 3. Avoid sedatives; may use fentanyl prn 4. TF/Free H20 5. GI/VTE prophylaxis 6. Palliative Consult cc 40 mins. CHRIS BILL MD Aug 03, 2018 10:47
[2018-08-03] MEDS ORDERED: MANNITOL 25% 50 ML INJ IV* ONE (11:00)
[2018-08-03] MEDS ORDERED: MANNITOL 20% 125 ML IV SCH (11:30)
--- NOTE | 2018-08-03 13:01 | CONS ---
Date/Time of Note Date/Time of Note DATE: 08/03/18 TIME: 13:00 Assessment/Plan Assessment/Plan Assessment/Plan 1. Hypertension, uncontrolled - better now - con't medical Rx - better now - HD 2. History of permanent pacemaker. No signs of dysfunction at this time, primarily ventricular pacing.Site looks well - with good fxn. 3. History of percutaneous transluminal coronary angioplasty and stent placement - no intervention planned now. 4. Respiratory failure, status post intubation. 5. End-stage renal disease on hemodialysis - Rx as needed. 6. Anemia. 7. Leukocytosis with a history of benign prostatic hypertrophy. 8. Pneumonia, bilateral- on anti-Bx - now trached - tolerated procedure well. 9. Dementia. 10. Encephalopathy- off all sedation - no signs of spontaneous motion or response. Result Diagram: 08/03/18 0435 08/03/18 0435 Results 24hrs Laboratory Tests Test 08/02/18 14:46 08/02/18 17:20 08/02/18 20:45 08/03/18 01:10 Bedside Glucose 106 109 113 91 Test 08/03/18 04:35 08/03/18 04:55 08/03/18 08:39 08/03/18 12:13 White Blood Count 9.9 Red Blood Count 2.56 L Hemoglobin 8.0 L Hematocrit 24.7 L Mean Corpuscular Volume 96.5 Mean Corpuscular 31.3 Hemoglobin Mean Corpuscular 32.4 Hemoglobin Concent Red Cell Distribution 14.7 H Width Platelet Count 156 Mean Platelet Volume 13.3 H Immature Granulocytes % 0.500 H Neutrophils % 88.7 H Lymphocytes % 3.0 L Monocytes % 5.9 Eosinophils % 1.6 Basophils % 0.3 Nucleated Red Blood 0.0 Cells % Immature Granulocytes # 0.050 H Neutrophils # 8.8 H Lymphocytes # 0.3 L Monocytes # 0.6 Eosinophils # 0.2 Basophils # 0.0 Nucleated Red Blood 0.0 Cells # Sodium Level 138 Potassium Level 5.0 Chloride Level 99 Carbon Dioxide Level 21 Anion Gap 18 H Blood Urea Nitrogen 109 H Creatinine 4.27 #H Est Glomerular Filtrat Rate mL/min Glucose Level 92 Calcium Level 8.1 L Bedside Glucose 90 93 132 Consultation Date/Type/Reason Admit Date/Time Jul 18, 2018 at 16:57 Initial Consult Date 07/19/18 Requesting Provider: RUBÉN BENITO MD 24 HR Interval Summary Free Text/Dictation Now s/p trach - tolerated procedure well - on HD now ROS: No fever, no chills, no nausea, no vomiting, no diarrhea/constipation - per nurse, pt non-verbal No recent weight changes No chest pain, no PND, no orthopnea No dizziness, blurred vision No thirst, no heat or cold intolerance Exam/Review of Systems Vital Signs Vitals Vital Signs Date Temp Pulse Resp B/P (MAP) Pulse Ox O2 O2 Flow FiO2 Time Delivery Rate 08/03/18 62 13 143/61 100 12:45 (88) 08/03/18 98.3 Mechanical 12:00 Ventilator 08/03/18 30 08:00 Intake and Output 08/02/18 08/02/18 08/03/18 1515:00 23:00 07:00 IntakeIntake Total 120 ml 290 ml 0 ml OutputOutput Total 35 ml 25 ml 50 ml BalanceBalance 85 ml 265 ml -50 ml Exam General: WN/WD/NAD, AOx 0 HEENT: Unicetric/atraumatic/EOMI (does not follow commands) NECK: trach Lymph: no lymphadenopathy HEART: regular with no S3, II/ systolic murmur at apex, pacer LUNGS: Coarse sounds ABD: soft, NT, ND, +BS : Intact Neuro: non focal SKIN: chronic changes EXT: trace edema Medications Medications Current Medications IV Flush (NS 3 ml) 3 ml PER PROTOCOL IV ; Start 07/18/18 at 17:30 Ondansetron HCl (Zofran Inj) 4 mg Q6H PRN IV NAUSEA AND/OR VOMITING; Start 07/18/18 at 17:30 Acetaminophen (Tylenol Tab) 650 mg Q6H PRN PO PAIN LEVEL 1-3 OR FEVER; Start 07/18/18 at 17:30 Atorvastatin Calcium (Lipitor) 40 mg QHS PO Last administered on 08/02/18at 20:50; Admin Dose 40 MG; Start 07/18/18 at 21:00 Baclofen (Lioresal) 10 mg BID PO Last administered on 08/03/18at 08:37; Admin Dose 10 MG; Start 07/18/18 at 21:00 Docusate Sodium (Colace) 100 mg BID PRN PO CONSTIPATION; Start 07/18/18 at 17:30 Doxazosin Mesylate (Cardura) 4 mg HS PO Last administered on 08/01/18 21:00; Admin Dose 4 MG; Start 07/18/18 at 21:00 Finasteride (Proscar) 5 mg DAILY PO Last administered on 08/03/18 08:36; Admin Dose 5 MG; Start 07/19/18 at 09:00 Haloperidol (Haldol) 5 mg Q2H PRN IM AGITATION Last administered on 07/19/18 02:37; Admin Dose 5 MG; Start 07/18/18 at 23:30 Allopurinol (Zyloprim) 100 mg DAILY PO Last administered on 08/03/18 08:37; Admin Dose 100 MG; Start 07/21/18 at 09:00 Docusate Sodium (Colace Liquid Cup) 100 mg BID GTB Last administered on 08/03/18 08:36; Admin Dose 100 MG; Start 07/20/18 at 21:00 Morphine Sulfate (morphine) 6 mg Q4H PRN PO PAIN LEVEL 7-10 Last administered on 08/02/18 10:01; Admin Dose 6 MG; Start 07/21/18 at 11:00 Nifedipine (Procardia) 20 mg TID NGT Last administered on 08/03/18 08:36; Admin Dose 20 MG; Start 07/23/18 at 14:30 Lorazepam (Ativan) 1 mg Q4H PRN GTB AGITATION Last administered on 07/31/18 21:25; Admin Dose 1 MG; Start 07/24/18 at 11:00 Insulin Aspart (Novolog Insulin Pen) NOVOLOG *MILD* ALGORI... Q4 SC Last administered on 08/02/18 01:35; Admin Dose 1 UNIT; Start 07/26/18 at 17:00 Miscellaneous Information 1 ea NOTE XX ; Start 07/26/18 at 14:30 Glucose (Glutose) 15 gm Q15M PRN PO DECREASED GLUCOSE; Start 07/26/18 at 14:30 Glucose (Glutose) 22.5 gm Q15M PRN PO DECREASED GLUCOSE; Start 07/26/18 at 14:30 Dextrose (D50w Syringe) 25 ml Q15M PRN IV DECREASED GLUCOSE; Start 07/26/18 at 14:30 Dextrose (D50w Syringe) 50 ml Q15M PRN IV DECREASED GLUCOSE; Start 07/26/18 at 14:30 Glucagon (Glucagen) 1 mg Q15M PRN IM DECREASED GLUCOSE; Start 07/26/18 at 14:30 Glucose (Glutose) 15 gm Q15M PRN BUCCAL DECREASED GLUCOSE; Start 07/26/18 at 14:30 Heparin Sodium (Porcine) (Heparin (1000 Units/ml)) 3,000 unit AFTER DIALYSIS CATHETER Last administered on 08/01/18at 13:06; Admin Dose 3,000 UNIT; Start 07/29/18 at 09:30 Famotidine (Pepcid) 20 mg DAILY PO Last administered on 08/03/18at 08:37; Admin Dose 20 MG; Start 07/31/18 at 09:00 Heparin Sodium (Porcine) (Heparin (5000 Units/1ml)) 5,000 unit BID SC Last administered on 08/01/18at 21:15; Admin Dose 5,000 UNIT; Start 08/01/18 at 09:00 Fentanyl (Sublimaze) 25 mcg Q2H PRN IV SEVERE PAIN LEVEL 7-10; Start 08/02/18 at 12:30 WILLIAM OJEDA MD Aug 03, 2018 13:01
--- NOTE | 2018-08-03 14:03 | PN ---
Date/Time of Note Date/Time of Note DATE: 08/03/18 TIME: 14:01 Assessment/Plan VTE Prophylaxis Risk score (from [facility])>0 risk: 15 SCD applied (from [facility]): Yes SCD contraindicated: other Pharmacological prophylaxis: other Pharm contraindication: other Lines/Catheters IV Catheter Type (from [facility]): Vinnie Cath Central line still needed: Yes Urinary Cath still in place: Yes Reason Cath still needed: urinary retention Assessment/Plan Assessment/Plan -Acute requiring intubation, patient currently extubated hypoxemic respiratory failure. At about, is following in pulmonology consultation -Possible aspiration pneumonia, continue antibiotics. Dr. Rebolledo is following in infection disease consultation. -E. coli UTI -Paroxysmal atrial fibrillation. Continue Lovenox. -Acute decompensated diastolic congestive heart failure. Dr. Haque is following in cardiology consultation -Dysphagia with G-tube. -Parkinson's disease. Continue Sinemet. -Severe dementia. Total critical care time spent is 35 mins.Further recommendations based on clinical course. Plan of care discussed with Dr. Brown. Result Diagram: 08/03/18 0435 08/03/18 0435 Results 24hrs Laboratory Tests Test 08/02/18 14:46 08/02/18 17:20 08/02/18 20:45 08/03/18 01:10 Bedside Glucose 106 109 113 91 Test 08/03/18 04:35 08/03/18 04:55 08/03/18 08:39 08/03/18 12:13 White Blood Count 9.9 Red Blood Count 2.56 L Hemoglobin 8.0 L Hematocrit 24.7 L Mean Corpuscular Volume 96.5 Mean Corpuscular 31.3 Hemoglobin Mean Corpuscular 32.4 Hemoglobin Concent Red Cell Distribution 14.7 H Width Platelet Count 156 Mean Platelet Volume 13.3 H Immature Granulocytes % 0.500 H Neutrophils % 88.7 H Lymphocytes % 3.0 L Monocytes % 5.9 Eosinophils % 1.6 Basophils % 0.3 Nucleated Red Blood 0.0 Cells % Immature Granulocytes # 0.050 H Neutrophils # 8.8 H Lymphocytes # 0.3 L Monocytes # 0.6 Eosinophils # 0.2 Basophils # 0.0 Nucleated Red Blood 0.0 Cells # Sodium Level 138 Potassium Level 5.0 Chloride Level 99 Carbon Dioxide Level 21 Anion Gap 18 H Blood Urea Nitrogen 109 H Creatinine 4.27 #H Est Glomerular Filtrat Rate mL/min Glucose Level 92 Calcium Level 8.1 L Bedside Glucose 90 93 132 Subjective 24 Hr Interval Summary Free Text/Dictation SP Trach Exam/Review of Systems Vital Signs Vitals Vital Signs Date Temp Pulse Resp B/P (MAP) Pulse Ox O2 O2 Flow FiO2 Time Delivery Rate 08/03/18 62 13 120/68 100 13:45 (85) 08/03/18 Mechanical 13:00 Ventilator 08/03/18 98.3 12:00 08/03/18 30 08:00 Intake and Output 08/02/18 08/02/18 08/03/18 1515:00 23:00 07:00 IntakeIntake Total 120 ml 290 ml 0 ml OutputOutput Total 35 ml 25 ml 50 ml BalanceBalance 85 ml 265 ml -50 ml Medications Medications Current Medications IV Flush (NS 3 ml) 3 ml PER PROTOCOL IV ; Start 07/18/18 at 17:30 Ondansetron HCl (Zofran Inj) 4 mg Q6H PRN IV NAUSEA AND/OR VOMITING; Start 07/18/18 at 17:30 Acetaminophen (Tylenol Tab) 650 mg Q6H PRN PO PAIN LEVEL 1-3 OR FEVER; Start 07/18/18 at 17:30 Atorvastatin Calcium (Lipitor) 40 mg QHS PO Last administered on 08/02/18at 20:50; Admin Dose 40 MG; Start 07/18/18 at 21:00 Baclofen (Lioresal) 10 mg BID PO Last administered on 08/03/18 08:37; Admin Dose 10 MG; Start 07/18/18 at 21:00 Docusate Sodium (Colace) 100 mg BID PRN PO CONSTIPATION; Start 07/18/18 at 17:30 Doxazosin Mesylate (Cardura) 4 mg HS PO Last administered on 08/01/18 21:00; Admin Dose 4 MG; Start 07/18/18 at 21:00 Finasteride (Proscar) 5 mg DAILY PO Last administered on 08/03/18 08:36; Admin Dose 5 MG; Start 07/19/18 at 09:00 Haloperidol (Haldol) 5 mg Q2H PRN IM AGITATION Last administered on 07/19/18at 02:37; Admin Dose 5 MG; Start 07/18/18 at 23:30 Allopurinol (Zyloprim) 100 mg DAILY PO Last administered on 08/03/18 08:37; Admin Dose 100 MG; Start 07/21/18 at 09:00 Docusate Sodium (Colace Liquid Cup) 100 mg BID GTB Last administered on 08/03/18 08:36; Admin Dose 100 MG; Start 07/20/18 at 21:00 Morphine Sulfate (morphine) 6 mg Q4H PRN PO PAIN LEVEL 7-10 Last administered on 08/02/18 10:01; Admin Dose 6 MG; Start 07/21/18 at 11:00 Nifedipine (Procardia) 20 mg TID NGT Last administered on 08/03/18 08:36; Admin Dose 20 MG; Start 07/23/18 at 14:30 Lorazepam (Ativan) 1 mg Q4H PRN GTB AGITATION Last administered on 07/31/18 21:25; Admin Dose 1 MG; Start 07/24/18 at 11:00 Insulin Aspart (Novolog Insulin Pen) NOVOLOG *MILD* ALGORI... Q4 SC Last administered on 08/02/18 01:35; Admin Dose 1 UNIT; Start 07/26/18 at 17:00 Miscellaneous Information 1 ea NOTE XX ; Start 07/26/18 at 14:30 Glucose (Glutose) 15 gm Q15M PRN PO DECREASED GLUCOSE; Start 07/26/18 at 14:30 Glucose (Glutose) 22.5 gm Q15M PRN PO DECREASED GLUCOSE; Start 07/26/18 at 14:30 Dextrose (D50w Syringe) 25 ml Q15M PRN IV DECREASED GLUCOSE; Start 07/26/18 at 14:30 Dextrose (D50w Syringe) 50 ml Q15M PRN IV DECREASED GLUCOSE; Start 07/26/18 at 14:30 Glucagon (Glucagen) 1 mg Q15M PRN IM DECREASED GLUCOSE; Start 07/26/18 at 14:30 Glucose (Glutose) 15 gm Q15M PRN BUCCAL DECREASED GLUCOSE; Start 07/26/18 at 14:30 Heparin Sodium (Porcine) (Heparin (1000 Units/ml)) 3,000 unit AFTER DIALYSIS CATHETER Last administered on 08/01/18 13:06; Admin Dose 3,000 UNIT; Start 07/29/18 at 09:30 Famotidine (Pepcid) 20 mg DAILY PO Last administered on 08/03/18at 08:37; Admin Dose 20 MG; Start 07/31/18 at 09:00 Heparin Sodium (Porcine) (Heparin (5000 Units/1ml)) 5,000 unit BID SC Last administered on 08/01/18at 21:15; Admin Dose 5,000 UNIT; Start 08/01/18 at 09:00 Fentanyl (Sublimaze) 25 mcg Q2H PRN IV SEVERE PAIN LEVEL 7-10; Start 08/02/18 at 12:30 JENNIFER RICHARD Aug 03, 2018 14:02
[2018-08-03] MEDS: HEPARIN 1000 UNITS/ML 10 ML INJ CATHETER SCH (14:18)
--- NOTE | 2018-08-03 14:19 | CONS ---
Date/Time of Note Date/Time of Note DATE: 08/03/18 TIME: 14:17 Assessment/Plan Assessment/Plan Hospital Course No acute changes overnight patient is in hemodialysis looks comfortable no fevers he is status post tracheostomy yesterday WBC 9.9 H&H 8 and 24.7 platelets 156 Chest x-ray this morning revealed moderate improvement of multifocal bilateral airspace infiltrates Indwelling's: Trach NG tube Owens catheter Right upper extremity PICC line, permanent pacemaker, right femoral Vinnie catheter Antimicrobials: none s/p Cefepime Microbiology: Cultures since admission had been negative Physical examination: Chronically ill-appearing elderly man who is intubated in no distress. Head atraumatic normocephalic. Sclera nonicteric. Neck is supple chest rise symmetrical breath sounds diminished bases. Heart: S1-S2. Abdomen soft bowel sounds hypoactive. Extremities with dependent edema Assessment: 1. Status post septic shock 2. Acute hypoxemic respiratory failure 3. S/p pneumonia 4. Encephalopathy, likely toxic metabolic 5. Anemia 6. Acute renal failure, started on hemodialysis Plan: Remains hemodynamically stable, continue present care, monitor off antibiotics, reculture as needed, pending PEG Result Diagram: 08/03/18 0435 08/03/18 0435 Results 24hrs Laboratory Tests Test 08/02/18 14:46 08/02/18 17:20 08/02/18 20:45 08/03/18 01:10 Bedside Glucose 106 109 113 91 Test 08/03/18 04:35 08/03/18 04:55 08/03/18 08:39 08/03/18 12:13 White Blood Count 9.9 Red Blood Count 2.56 L Hemoglobin 8.0 L Hematocrit 24.7 L Mean Corpuscular Volume 96.5 Mean Corpuscular 31.3 Hemoglobin Mean Corpuscular 32.4 Hemoglobin Concent Red Cell Distribution 14.7 H Width Platelet Count 156 Mean Platelet Volume 13.3 H Immature Granulocytes % 0.500 H Neutrophils % 88.7 H Lymphocytes % 3.0 L Monocytes % 5.9 Eosinophils % 1.6 Basophils % 0.3 Nucleated Red Blood 0.0 Cells % Immature Granulocytes # 0.050 H Neutrophils # 8.8 H Lymphocytes # 0.3 L Monocytes # 0.6 Eosinophils # 0.2 Basophils # 0.0 Nucleated Red Blood 0.0 Cells # Sodium Level 138 Potassium Level 5.0 Chloride Level 99 Carbon Dioxide Level 21 Anion Gap 18 H Blood Urea Nitrogen 109 H Creatinine 4.27 #H Est Glomerular Filtrat Rate mL/min Glucose Level 92 Calcium Level 8.1 L Bedside Glucose 90 93 132 Consultation Date/Type/Reason Admit Date/Time Jul 18, 2018 at 16:57 Initial Consult Date 07/19/18 Type of Consult ID Requesting Provider: RUBÉN BENITO MD Exam/Review of Systems Vital Signs Vitals Vital Signs Date Temp Pulse Resp B/P (MAP) Pulse Ox O2 O2 Flow FiO2 Time Delivery Rate 08/03/18 62 13 120/68 100 13:45 (85) 08/03/18 Mechanical 13:00 Ventilator 08/03/18 98.3 12:00 08/03/18 30 08:00 Intake and Output 08/02/18 08/02/18 08/03/18 1515:00 23:00 07:00 IntakeIntake Total 120 ml 290 ml 0 ml OutputOutput Total 35 ml 25 ml 50 ml BalanceBalance 85 ml 265 ml -50 ml Medications Medications Current Medications IV Flush (NS 3 ml) 3 ml PER PROTOCOL IV ; Start 07/18/18 at 17:30 Ondansetron HCl (Zofran Inj) 4 mg Q6H PRN IV NAUSEA AND/OR VOMITING; Start 07/18/18 at 17:30 Acetaminophen (Tylenol Tab) 650 mg Q6H PRN PO PAIN LEVEL 1-3 OR FEVER; Start 07/18/18 at 17:30 Atorvastatin Calcium (Lipitor) 40 mg QHS PO Last administered on 08/02/18at 20:50; Admin Dose 40 MG; Start 07/18/18 at 21:00 Baclofen (Lioresal) 10 mg BID PO Last administered on 08/03/18 08:37; Admin Dose 10 MG; Start 07/18/18 at 21:00 Docusate Sodium (Colace) 100 mg BID PRN PO CONSTIPATION; Start 07/18/18 at 17:30 Doxazosin Mesylate (Cardura) 4 mg HS PO Last administered on 08/01/18 21:00; Admin Dose 4 MG; Start 07/18/18 at 21:00 Finasteride (Proscar) 5 mg DAILY PO Last administered on 08/03/18 08:36; Admin Dose 5 MG; Start 07/19/18 at 09:00 Haloperidol (Haldol) 5 mg Q2H PRN IM AGITATION Last administered on 07/19/18at 02:37; Admin Dose 5 MG; Start 07/18/18 at 23:30 Allopurinol (Zyloprim) 100 mg DAILY PO Last administered on 08/03/18 08:37; Admin Dose 100 MG; Start 07/21/18 at 09:00 Docusate Sodium (Colace Liquid Cup) 100 mg BID GTB Last administered on 08/03/18 08:36; Admin Dose 100 MG; Start 07/20/18 at 21:00 Morphine Sulfate (morphine) 6 mg Q4H PRN PO PAIN LEVEL 7-10 Last administered on 08/02/18 10:01; Admin Dose 6 MG; Start 07/21/18 at 11:00 Nifedipine (Procardia) 20 mg TID NGT Last administered on 08/03/18 08:36; Admin Dose 20 MG; Start 07/23/18 at 14:30 Lorazepam (Ativan) 1 mg Q4H PRN GTB AGITATION Last administered on 07/31/18 21:25; Admin Dose 1 MG; Start 07/24/18 at 11:00 Insulin Aspart (Novolog Insulin Pen) NOVOLOG *MILD* ALGORI... Q4 SC Last administered on 08/02/18 01:35; Admin Dose 1 UNIT; Start 07/26/18 at 17:00 Miscellaneous Information 1 ea NOTE XX ; Start 07/26/18 at 14:30 Glucose (Glutose) 15 gm Q15M PRN PO DECREASED GLUCOSE; Start 07/26/18 at 14:30 Glucose (Glutose) 22.5 gm Q15M PRN PO DECREASED GLUCOSE; Start 07/26/18 at 14:30 Dextrose (D50w Syringe) 25 ml Q15M PRN IV DECREASED GLUCOSE; Start 07/26/18 at 14:30 Dextrose (D50w Syringe) 50 ml Q15M PRN IV DECREASED GLUCOSE; Start 07/26/18 at 14:30 Glucagon (Glucagen) 1 mg Q15M PRN IM DECREASED GLUCOSE; Start 07/26/18 at 14:30 Glucose (Glutose) 15 gm Q15M PRN BUCCAL DECREASED GLUCOSE; Start 07/26/18 at 14:30 Heparin Sodium (Porcine) (Heparin (1000 Units/ml)) 3,000 unit AFTER DIALYSIS CATHETER Last administered on 08/01/18at 13:06; Admin Dose 3,000 UNIT; Start 07/29/18 at 09:30 Famotidine (Pepcid) 20 mg DAILY PO Last administered on 08/03/18at 08:37; Admin Dose 20 MG; Start 07/31/18 at 09:00 Heparin Sodium (Porcine) (Heparin (5000 Units/1ml)) 5,000 unit BID SC Last administered on 08/01/18at 21:15; Admin Dose 5,000 UNIT; Start 08/01/18 at 09:00 Fentanyl (Sublimaze) 25 mcg Q2H PRN IV SEVERE PAIN LEVEL 7-10; Start 08/02/18 at 12:30 NATALIA CARTAGENA NP Aug 03, 2018 14:19
--- NOTE | 2018-08-03 15:25 | CONS ---
Date/Time of Note Date/Time of Note DATE: 08/03/18 TIME: 15:25 Assessment/Plan Assessment/Plan Assessment/Plan 1. Acute renal failure due to ATN from sepsis 2. Sepsis due to PNA 3. Acute Hypoxemic respiratory failure due to PNA - Intubated on ventilator 4. H/o CAD s/p previous stent placement 5. h/o Pacemaker placement 6. H/o HTN 7. H/o HL 8. H/o Chronic back pain, Prostate CA 9. Hypernatremia - now resolved 10. Hyperuricemia, on allopurinol Plan:- started on HD on 07/28/18, HD ordered for today and tomorrow then we will keep pt on MWF schedule HIV, Hepatitis panel negative Pulmonary to manage ventilator- pt remains intubated on ventilator - After pt weaned off ventilator we will decide about long-term HD and permacath placement - Currently he is not waking up off sedation, Unresponsive on ventilator, Moves extremities but does not follow commands will follow up Result Diagram: 08/03/18 0435 08/03/18 0435 Results 24hrs Laboratory Tests Test 08/02/18 17:20 08/02/18 20:45 08/03/18 01:10 08/03/18 04:35 Bedside Glucose 109 113 91 White Blood Count 9.9 Red Blood Count 2.56 L Hemoglobin 8.0 L Hematocrit 24.7 L Mean Corpuscular Volume 96.5 Mean Corpuscular 31.3 Hemoglobin Mean Corpuscular 32.4 Hemoglobin Concent Red Cell Distribution 14.7 H Width Platelet Count 156 Mean Platelet Volume 13.3 H Immature Granulocytes % 0.500 H Neutrophils % 88.7 H Lymphocytes % 3.0 L Monocytes % 5.9 Eosinophils % 1.6 Basophils % 0.3 Nucleated Red Blood 0.0 Cells % Immature Granulocytes # 0.050 H Neutrophils # 8.8 H Lymphocytes # 0.3 L Monocytes # 0.6 Eosinophils # 0.2 Basophils # 0.0 Nucleated Red Blood 0.0 Cells # Sodium Level 138 Potassium Level 5.0 Chloride Level 99 Carbon Dioxide Level 21 Anion Gap 18 H Blood Urea Nitrogen 109 H Creatinine 4.27 #H Est Glomerular Filtrat Rate mL/min Glucose Level 92 Calcium Level 8.1 L Test 08/03/18 04:55 08/03/18 08:39 08/03/18 12:13 Bedside Glucose 90 93 132 Consultation Date/Type/Reason Admit Date/Time Jul 18, 2018 at 16:57 Initial Consult Date 07/19/18 Type of Consult NEPHROLOGY Requesting Provider: RUBÉN BENITO MD Exam/Review of Systems Vital Signs Vitals Vital Signs Date Temp Pulse Resp B/P (MAP) Pulse Ox O2 O2 Flow FiO2 Time Delivery Rate 08/03/18 62 13 120/68 100 13:45 (85) 08/03/18 30 13:35 08/03/18 Mechanical 13:00 Ventilator 08/03/18 98.3 12:00 Intake and Output 08/02/18 08/02/18 08/03/18 1515:00 23:00 07:00 IntakeIntake Total 120 ml 290 ml 0 ml OutputOutput Total 35 ml 25 ml 50 ml BalanceBalance 85 ml 265 ml -50 ml Exam Constitutional: non-verbal, other (Intubated on ventilator ) Eyes: other (ET tube in place ), NG tube place Respiratory: diminished breath sounds, other (Bilateral Coarse BS+) Cardiovascular: regular rate and rhythm Gastrointestinal: soft, non-tender Musculoskeletal: muscle weakness, swelling, other (Bilateral UE edema ) Neurological: other (Intubated, sedated on ventilator ) Medications Medications Current Medications IV Flush (NS 3 ml) 3 ml PER PROTOCOL IV ; Start 07/18/18 at 17:30 Ondansetron HCl (Zofran Inj) 4 mg Q6H PRN IV NAUSEA AND/OR VOMITING; Start 1 09/18/17 at 17:30 Acetaminophen (Tylenol Tab) 650 mg Q6H PRN PO PAIN LEVEL 1-3 OR FEVER; Start 07/18/18 at 17:30 Atorvastatin Calcium (Lipitor) 40 mg QHS PO Last administered on 08/02/18at 20:50; Admin Dose 40 MG; Start 07/18/18 at 21:00 Baclofen (Lioresal) 10 mg BID PO Last administered on 08/03/18at 08:37; Admin Dose 10 MG; Start 07/18/18 at 21:00 Docusate Sodium (Colace) 100 mg BID PRN PO CONSTIPATION; Start 07/18/18 at 17:30 Doxazosin Mesylate (Cardura) 4 mg HS PO Last administered on 08/01/18at 21:00; Admin Dose 4 MG; Start 07/18/18 at 21:00 Finasteride (Proscar) 5 mg DAILY PO Last administered on 08/03/18 08:36; Admin Dose 5 MG; Start 07/19/18 at 09:00 Haloperidol (Haldol) 5 mg Q2H PRN IM AGITATION Last administered on 07/19/18 02:37; Admin Dose 5 MG; Start 07/18/18 at 23:30 Allopurinol (Zyloprim) 100 mg DAILY PO Last administered on 08/03/18 08:37; Admin Dose 100 MG; Start 07/21/18 at 09:00 Docusate Sodium (Colace Liquid Cup) 100 mg BID GTB Last administered on 9at 08:36; Admin Dose 100 MG; Start 07/20/18 at 21:00 Morphine Sulfate (morphine) 6 mg Q4H PRN PO PAIN LEVEL 7-10 Last administered on 08/02/18 10:01; Admin Dose 6 MG; Start 07/21/18 at 11:00 Nifedipine (Procardia) 20 mg TID NGT Last administered on 08/03/18 08:36; Admin Dose 20 MG; Start 07/23/18 at 14:30 Lorazepam (Ativan) 1 mg Q4H PRN GTB AGITATION Last administered on 07/31/18 21:25; Admin Dose 1 MG; Start 07/24/18 at 11:00 Insulin Aspart (Novolog Insulin Pen) NOVOLOG *MILD* ALGORI... Q4 SC Last administered on 08/02/18 01:35; Admin Dose 1 UNIT; Start 07/26/18 at 17:00 Miscellaneous Information 1 ea NOTE XX ; Start 07/26/18 at 14:30 Glucose (Glutose) 15 gm Q15M PRN PO DECREASED GLUCOSE; Start 07/26/18 at 14:30 Glucose (Glutose) 22.5 gm Q15M PRN PO DECREASED GLUCOSE; Start 07/26/18 at 14:30 Dextrose (D50w Syringe) 25 ml Q15M PRN IV DECREASED GLUCOSE; Start 07/26/18 at 14:30 Dextrose (D50w Syringe) 50 ml Q15M PRN IV DECREASED GLUCOSE; Start 07/26/18 at 14:30 Glucagon (Glucagen) 1 mg Q15M PRN IM DECREASED GLUCOSE; Start 07/26/18 at 14:30 Glucose (Glutose) 15 gm Q15M PRN BUCCAL DECREASED GLUCOSE; Start 07/26/18 at 14:30 Heparin Sodium (Porcine) (Heparin (1000 Units/ml)) 3,000 unit AFTER DIALYSIS CATHETER Last administered on 08/03/18at 14:18; Admin Dose 3,000 UNIT; Start 07/29/18 at 09:30 Famotidine (Pepcid) 20 mg DAILY PO Last administered on 08/03/18at 08:37; Admin Dose 20 MG; Start 07/31/18 at 09:00 Heparin Sodium (Porcine) (Heparin (5000 Units/1ml)) 5,000 unit BID SC Last administered on 08/01/18at 21:15; Admin Dose 5,000 UNIT; Start 08/01/18 at 09:00 Fentanyl (Sublimaze) 25 mcg Q2H PRN IV SEVERE PAIN LEVEL 7-10; Start 08/02/18 at 12:30 FELICIANO RAMIREZ MD Aug 03, 2018 15:25
[2018-08-03] MEDS: BALSAM PERU/CASTOR OIL 60 GM TUBE TOP SCH ×2 (16:56→20:58)
[2018-08-03] MEDS: HEPARIN 5,000 UNIT/1 ML VIAL SC SCH ×2 (16:59→20:54)
[2018-08-03] MEDS: ATORVASTATIN 40 MG TAB PO SCH (20:50)
[2018-08-03] MEDS: DOXAZOSIN 4 MG TAB PO SCH (20:51)
--- NOTE | 2018-08-03 21:20 | RADRPT ---
Vent Rate: 67 bpm RR Interval: 0 msec CA Interval: 0 msec QRS Duration: 156 msec QT Interval: 474 msec QTC Interval: 500 msec P-R-T [place]: 60 - -51 - 84 degrees Electronic ventricular pacemaker Electronically Signed By: Wilberto Adams [id number]
[2018-08-04] VITALS (23 sets, daily range): BP systolic 113–145; BP diastolic 52–75; PULSE 60–94; RESP 16–35
[2018-08-04] MEDS: INSULIN ASPART [NOVOLOG] 3 ML PEN SC SCH ×6 (01:56→22:05)
[2018-08-04] MEDS: FAMOTIDINE 20 MG TAB PO SCH (08:28)
[2018-08-04] MEDS: ALLOPURINOL 100 MG TAB PO SCH (08:28)
[2018-08-04] MEDS: FINASTERIDE 5 MG TAB PO SCH (08:28)
[2018-08-04] MEDS: DOCUSATE SODIUM 10 MG/ML (10ML CUP) GTB SCH ×2 (08:28→21:58)
[2018-08-04] MEDS: NIFEdipine 10 MG CAP NGT SCH ×4 (08:28→21:59)
[2018-08-04] MEDS: BACLOFEN 10 MG TAB PO SCH ×2 (08:28→21:58)
[2018-08-04] MEDS: HEPARIN 5,000 UNIT/1 ML VIAL SC SCH ×2 (08:30→22:15)
[2018-08-04] MEDS: BALSAM PERU/CASTOR OIL 60 GM TUBE TOP SCH ×2 (08:41→21:00)
--- NOTE | 2018-08-04 11:18 | CONS ---
Date/Time of Note Date/Time of Note DATE: 08/04/18 TIME: 11:17 Consult Date/Type/Reason Admit Date/Time Jul 18, 2018 at 16:57 Initial Consult Date 07/19/18 Type of Consultation: Pulm/CCM Requesting Provider: RUBÉN BENITO MD Subjective Patient remained stable. No new events Objective Vital Signs Date Temp Pulse Resp B/P (MAP) Pulse Ox O2 O2 Flow FiO2 Time Delivery Rate 08/04/18 60 19 100 30 09:45 08/04/18 98.3 141/61 Mechanical 07:49 (87) Ventilator Intake and Output 08/03/18 08/03/18 08/04/18 1515:00 23:00 07:00 IntakeIntake Total 370 ml 465 ml 310 ml OutputOutput Total 3330 ml 10 ml 50 ml BalanceBalance -2960 ml 455 ml 260 ml Exam GENERAL: Elderly gentleman comfortable post tracheostomy VITAL SIGNS: per chart NECK: Supple. No JVD or lymphadenopathy. CARDIAC EXAM: S1, S2. No added sounds or murmurs. CHEST: clear bilaterally, No added sounds, rales or wheezes ABDOMEN: Soft, nontender. No guarding or rebound. EXTREMITIES: No cyanosis, clubbing or edema. NEUROLOGIC: Generalized weakness. No focal deficits. Results/Medications Result Diagram: 08/04/18 0541 08/04/18 0541 Results 24 hrs Laboratory Tests Test 08/03/18 12:13 08/03/18 16:58 08/03/18 20:49 08/04/18 01:53 Bedside Glucose 132 161 156 162 Test 08/04/18 05:26 08/04/18 05:41 08/04/18 08:37 Bedside Glucose 173 161 White Blood Count 9.8 Red Blood Count 2.64 L Hemoglobin 8.3 L Hematocrit 25.3 L Mean Corpuscular Volume 95.8 Mean Corpuscular 31.4 Hemoglobin Mean Corpuscular 32.8 Hemoglobin Concent Red Cell Distribution 15.1 H Width Platelet Count 168 Mean Platelet Volume 12.6 H Immature Granulocytes % 0.800 H Neutrophils % 81.5 H Lymphocytes % 5.6 L Monocytes % 10.1 Eosinophils % 1.6 Basophils % 0.4 Nucleated Red Blood 0.0 Cells % Immature Granulocytes # 0.080 H Neutrophils # 8.0 H Lymphocytes # 0.6 L Monocytes # 1.0 H Eosinophils # 0.2 Basophils # 0.0 Nucleated Red Blood 0.0 Cells # Sodium Level 136 Potassium Level 4.5 Chloride Level 100 Carbon Dioxide Level 25 Anion Gap 11 # Blood Urea Nitrogen 88 H Creatinine 3.52 H Est Glomerular Filtrat Rate mL/min Glucose Level 162 Calcium Level 8.2 L Medications Current Medications IV Flush (NS 3 ml) 3 ml PER PROTOCOL IV ; Start 07/18/18 at 17:30 Ondansetron HCl (Zofran Inj) 4 mg Q6H PRN IV NAUSEA AND/OR VOMITING; Start 07/18/18 at 17:30 Acetaminophen (Tylenol Tab) 650 mg Q6H PRN PO PAIN LEVEL 1-3 OR FEVER Last administered on 08/04/18 05:28; Admin Dose 650 MG; Start 07/18/18 at 17:30 Atorvastatin Calcium (Lipitor) 40 mg QHS PO Last administered on 08/03/18 20:50; Admin Dose 40 MG; Start 07/18/18 at 21:00 Baclofen (Lioresal) 10 mg BID PO Last administered on 08/04/18 08:28; Admin Dose 10 MG; Start 07/18/18 at 21:00 Docusate Sodium (Colace) 100 mg BID PRN PO CONSTIPATION; Start 07/18/18 at 17:30 Doxazosin Mesylate (Cardura) 4 mg HS PO Last administered on 08/03/18 20:51; Admin Dose 4 MG; Start 07/18/18 at 21:00 Finasteride (Proscar) 5 mg DAILY PO Last administered on 08/04/18 08:28; Admin Dose 5 MG; Start 07/19/18 at 09:00 Haloperidol (Haldol) 5 mg Q2H PRN IM AGITATION Last administered on 07/19/18at 02:37; Admin Dose 5 MG; Start 07/18/18 at 23:30 Allopurinol (Zyloprim) 100 mg DAILY PO Last administered on 08/04/18 08:28; Admin Dose 100 MG; Start 07/21/18 at 09:00 Docusate Sodium (Colace Liquid Cup) 100 mg BID GTB Last administered on 08/04/18 08:28; Admin Dose 100 MG; Start 07/20/18 at 21:00 Morphine Sulfate (morphine) 6 mg Q4H PRN PO PAIN LEVEL 7-10 Last administered on 08/02/18 10:01; Admin Dose 6 MG; Start 07/21/18 at 11:00 Nifedipine (Procardia) 20 mg TID NGT Last administered on 08/03/18 20:50; Admin Dose 20 MG; Start 07/23/18 at 14:30 Lorazepam (Ativan) 1 mg Q4H PRN GTB AGITATION Last administered on 07/31/18 21:25; Admin Dose 1 MG; Start 07/24/18 at 11:00 Insulin Aspart (Novolog Insulin Pen) NOVOLOG *MILD* ALGORI... Q4 SC Last administered on 08/04/18 08:49; Admin Dose 1 UNIT; Start 07/26/18 at 17:00 Miscellaneous Information 1 ea NOTE XX ; Start 07/26/18 at 14:30 Glucose (Glutose) 15 gm Q15M PRN PO DECREASED GLUCOSE; Start 07/26/18 at 14:30 Glucose (Glutose) 22.5 gm Q15M PRN PO DECREASED GLUCOSE; Start 07/26/18 at 14:30 Dextrose (D50w Syringe) 25 ml Q15M PRN IV DECREASED GLUCOSE; Start 07/26/18 at 14:30 Dextrose (D50w Syringe) 50 ml Q15M PRN IV DECREASED GLUCOSE; Start 07/26/18 at 14:30 Glucagon (Glucagen) 1 mg Q15M PRN IM DECREASED GLUCOSE; Start 07/26/18 at 14:30 Glucose (Glutose) 15 gm Q15M PRN BUCCAL DECREASED GLUCOSE; Start 07/26/18 at 14:30 Heparin Sodium (Porcine) (Heparin (1000 Units/ml)) 3,000 unit AFTER DIALYSIS CATHETER Last administered on 08/03/18 14:18; Admin Dose 3,000 UNIT; Start 07/29/18 at 09:30 Famotidine (Pepcid) 20 mg DAILY PO Last administered on 08/04/18 08:28; Admin Dose 20 MG; Start 07/31/18 at 09:00 Heparin Sodium (Porcine) (Heparin (5000 Units/1ml)) 5,000 unit BID SC Last administered on 08/04/18 08:30; Admin Dose 5,000 UNIT; Start 08/01/18 at 09:00 Fentanyl (Sublimaze) 25 mcg Q2H PRN IV SEVERE PAIN LEVEL 7-10; Start 08/02/18 at 12:30 Assessment/Plan Chief Complaint/Hosp Course IMP: 1. Acute hypoxemic respiratory failure 2/2 multifocal pneumonia; cannot exclude co-existing bland hemorrhage/volume overload--now failure to wean 2. Encephalopathy toxic metabolic 3. Anemia 4. MYKE--FeUrea c/w intrinsic renal cause 5. Dysphagia 6. Anemia RECS: 1. Vent support 2. HD/UF as per Renal 3. Avoid sedatives; may use fentanyl prn 4. TF/Free H20 5. GI/VTE prophylaxis 6. Palliative Consult [facility] Aug 04, 2018 11:18
--- NOTE | 2018-08-04 12:19 | CONS ---
Assessment/Plan Assessment/Plan Hospital Course 83 M who is admitted for management of acute respiratory failure. CXR revealed bilateral pneumonias.. Neurology is consulted to evaluate ams.. Of note, he remains in severe MYKE requiring HD..which is a likely contributor.. Also notably, he was on sedation for a prolonged period, which has now been held. Most clinically consistent w/ an acute and severe toxic-metabolic encephalopathy.. CTH is without acute intracranial pathology. EEG is without epileptiform activity. P: Ok to defer additional neuroimaging for now Cont to limit sedating medications where possible Other medical management and supportive care per primary Will follow clinically Result Diagram: 08/04/18 0541 08/04/18 0541 Results 24hrs Laboratory Tests Test 08/03/18 16:58 08/03/18 20:49 08/04/18 01:53 08/04/18 05:26 Bedside Glucose 161 156 162 173 Test 08/04/18 05:41 08/04/18 08:37 White Blood Count 9.8 Red Blood Count 2.64 L Hemoglobin 8.3 L Hematocrit 25.3 L Mean Corpuscular Volume 95.8 Mean Corpuscular 31.4 Hemoglobin Mean Corpuscular 32.8 Hemoglobin Concent Red Cell Distribution 15.1 H Width Platelet Count 168 Mean Platelet Volume 12.6 H Immature Granulocytes % 0.800 H Neutrophils % 81.5 H Lymphocytes % 5.6 L Monocytes % 10.1 Eosinophils % 1.6 Basophils % 0.4 Nucleated Red Blood 0.0 Cells % Immature Granulocytes # 0.080 H Neutrophils # 8.0 H Lymphocytes # 0.6 L Monocytes # 1.0 H Eosinophils # 0.2 Basophils # 0.0 Nucleated Red Blood 0.0 Cells # Sodium Level 136 Potassium Level 4.5 Chloride Level 100 Carbon Dioxide Level 25 Anion Gap 11 # Blood Urea Nitrogen 88 H Creatinine 3.52 H Est Glomerular Filtrat Rate mL/min Glucose Level 162 Calcium Level 8.2 L Bedside Glucose 161 Consultation Date/Type/Reason Admit Date/Time Jul 18, 2018 at 16:57 Type of Consult Neurology Requesting Provider: RUBÉN BENITO MD Date/Time of Note DATE: 08/04/18 TIME: 12:19 24 HR Interval Summary Free Text/Dictation Continues telemetry monitoring. S/p trach on 08/02. No acute events or changes in pt condition reported. Exam Vital Signs Vitals Vital Signs Date Temp Pulse Resp B/P (MAP) Pulse Ox O2 O2 Flow FiO2 Time Delivery Rate 08/04/18 97.7 94 18 145/75 100 Mechanical 11:55 (98) Ventilator 08/04/18 30 09:45 Intake and Output 08/03/18 08/03/18 08/04/18 1515:00 23:00 07:00 IntakeIntake Total 370 ml 465 ml 310 ml OutputOutput Total 3330 ml 10 ml 50 ml BalanceBalance -2960 ml 455 ml 260 ml Exam PE: Gen Appearance: No Apparent Distress HEENT: Has trach Cardiovascular: Regular rate Respiratory: mechanically ventilated Abdomen: Soft Extremities: Dry NE: The patient was obtunded. Opened eyes to noxious stimuli. Did not track or follow commands. Cranial nerve examination was limited by mental status. Pupils were equal and reactive to light. There was no afferent pupillary defect. Funduscopic examination was limited. Face was grossly symmetric, w/ weak cough reflexes. Tone was normal. Muscle bulk was normal. I did not see fasciculations. The patient did not withdraw to noxious stimulation. Coordination and gait testing was limited by mental status. Arm and leg reflexes were symmetric. Chacon's sign was absent. Plantar responses were mute. RIKI MAHAN NP Aug 04, 2018 12:19
[2018-08-04] MEDS ORDERED: COLLAGENASE 5 GM (UD JAR) TOP PRN (12:30)
--- NOTE | 2018-08-04 12:47 | CONS ---
Date/Time of Note Date/Time of Note DATE: 08/04/18 TIME: 12:45 Assessment/Plan Assessment/Plan Hospital Course IMPRESSION: 1. Hypertension, uncontrolled. 2. History of permanent pacemaker. No signs of dysfunction at this time, primarily ventricular pacing. 3. History of percutaneous transluminal coronary angioplasty and stent placement. 4. Respiratory failure, status post intubation. 5. End-stage renal disease on hemodialysis. 6. Anemia. 7. Leukocytosis with a history of benign prostatic hypertrophy. 8. Pneumonia, bilateral. 9. Dementia. 10. Encephalopathy. REcc: -ICU -Continue nifedipine and follow BP closely -Continue statin -not on asa due to anemia -trend cardiac enzymes -continue sq heparin -HD for volume removal Result Diagram: 08/04/18 0541 08/04/18 0541 Results 24hrs Laboratory Tests Test 08/03/18 16:58 08/03/18 20:49 08/04/18 01:53 08/04/18 05:26 Bedside Glucose 161 156 162 173 Test 08/04/18 05:41 08/04/18 08:37 White Blood Count 9.8 Red Blood Count 2.64 L Hemoglobin 8.3 L Hematocrit 25.3 L Mean Corpuscular Volume 95.8 Mean Corpuscular 31.4 Hemoglobin Mean Corpuscular 32.8 Hemoglobin Concent Red Cell Distribution 15.1 H Width Platelet Count 168 Mean Platelet Volume 12.6 H Immature Granulocytes % 0.800 H Neutrophils % 81.5 H Lymphocytes % 5.6 L Monocytes % 10.1 Eosinophils % 1.6 Basophils % 0.4 Nucleated Red Blood 0.0 Cells % Immature Granulocytes # 0.080 H Neutrophils # 8.0 H Lymphocytes # 0.6 L Monocytes # 1.0 H Eosinophils # 0.2 Basophils # 0.0 Nucleated Red Blood 0.0 Cells # Sodium Level 136 Potassium Level 4.5 Chloride Level 100 Carbon Dioxide Level 25 Anion Gap 11 # Blood Urea Nitrogen 88 H Creatinine 3.52 H Est Glomerular Filtrat Rate mL/min Glucose Level 162 Calcium Level 8.2 L Bedside Glucose 161 Consultation Date/Type/Reason Admit Date/Time Jul 18, 2018 at 16:57 Initial Consult Date 07/19/18 Type of Consult cardiology Reason for Consultation HTN Requesting Provider: RUBÉN BENITO MD Exam/Review of Systems Vital Signs Vitals Vital Signs Date Temp Pulse Resp B/P (MAP) Pulse Ox O2 O2 Flow FiO2 Time Delivery Rate 08/04/18 97.7 94 18 145/75 100 Mechanical 11:55 (98) Ventilator 08/04/18 30 09:45 Intake and Output 08/03/18 08/03/18 08/04/18 1515:00 23:00 07:00 IntakeIntake Total 370 ml 465 ml 310 ml OutputOutput Total 3330 ml 10 ml 50 ml BalanceBalance -2960 ml 455 ml 260 ml Exam Review of Systems: CONSTITUTIONAL: No fevers, chills. PULMONARY: No sob CARDIOVASCULAR: No chest pain/palpitations GASTROINTESTINAL: No nausea/vomiting. GENITOURINARY: No hematuria/dysuria. MUSCULOSKELETAL: No myagias/arthalgias. PSYCHIATRIC: The patient denies depression. NEUROLOGIC: No weakness Constitutional: alert Psych: no complaints Head: normocephalic ENMT: mucosa pink and moist Neck: supple, jvd (9 cm water) Respiratory: diminished breath sounds (at bases/B) Cardiovascular: regular rate and rhythm Gastrointestinal: soft, non-tender Musculoskeletal: muscle tone (normal) Extremities: edema (none) Neurological: other (No focal deficits) Medications Medications Current Medications IV Flush (NS 3 ml) 3 ml PER PROTOCOL IV ; Start 07/18/18 at 17:30 Ondansetron HCl (Zofran Inj) 4 mg Q6H PRN IV NAUSEA AND/OR VOMITING; Start 07/18/18 at 17:30 Acetaminophen (Tylenol Tab) 650 mg Q6H PRN PO PAIN LEVEL 1-3 OR FEVER Last adm inistered on 08/04/18 05:28; Admin Dose 650 MG; Start 07/18/18 at 17:30 Atorvastatin Calcium (Lipitor) 40 mg QHS PO Last administered on 08/03/18 20:50; Admin Dose 40 MG; Start 07/18/18 at 21:00 Baclofen (Lioresal) 10 mg BID PO Last administered on 08/04/18 08:28; Admin Dose 10 MG; Start 07/18/18 at 21:00 Docusate Sodium (Colace) 100 mg BID PRN PO CONSTIPATION; Start 07/18/18 at 17:30 Doxazosin Mesylate (Cardura) 4 mg HS PO Last administered on 08/03/18 20:51; Admin Dose 4 MG; Start 07/18/18 at 21:00 Finasteride (Proscar) 5 mg DAILY PO Last administered on 08/04/18 08:28; Admin Dose 5 MG; Start 07/19/18 at 09:00 Haloperidol (Haldol) 5 mg Q2H PRN IM AGITATION Last administered on 07/19/18at 02:37; Admin Dose 5 MG; Start 07/18/18 at 23:30 Allopurinol (Zyloprim) 100 mg DAILY PO Last administered on 08/04/18 08:28; Admin Dose 100 MG; Start 07/21/18 at 09:00 Docusate Sodium (Colace Liquid Cup) 100 mg BID GTB Last administered on 08/04/18 08:28; Admin Dose 100 MG; Start 07/20/18 at 21:00 Morphine Sulfate (morphine) 6 mg Q4H PRN PO PAIN LEVEL 7-10 Last administered on 08/02/18 10:01; Admin Dose 6 MG; Start 07/21/18 at 11:00 Nifedipine (Procardia) 20 mg TID NGT Last administered on 08/03/18 20:50; Admin Dose 20 MG; Start 07/23/18 at 14:30 Lorazepam (Ativan) 1 mg Q4H PRN GTB AGITATION Last administered on 07/31/18 21:25; Admin Dose 1 MG; Start 07/24/18 at 11:00 Insulin Aspart (Novolog Insulin Pen) NOVOLOG *MILD* ALGORI... Q4 SC Last administered on 08/04/18 08:49; Admin Dose 1 UNIT; Start 07/26/18 at 17:00 Miscellaneous Information 1 ea NOTE XX ; Start 07/26/18 at 14:30 Glucose (Glutose) 15 gm Q15M PRN PO DECREASED GLUCOSE; Start 07/26/18 at 14:30 Glucose (Glutose) 22.5 gm Q15M PRN PO DECREASED GLUCOSE; Start 07/26/18 at 14:30 Dextrose (D50w Syringe) 25 ml Q15M PRN IV DECREASED GLUCOSE; Start 07/26/18 at 14:30 Dextrose (D50w Syringe) 50 ml Q15M PRN IV DECREASED GLUCOSE; Start 07/26/18 at 14:30 Glucagon (Glucagen) 1 mg Q15M PRN IM DECREASED GLUCOSE; Start 07/26/18 at 14:30 Glucose (Glutose) 15 gm Q15M PRN BUCCAL DECREASED GLUCOSE; Start 07/26/18 at 14:30 Heparin Sodium (Porcine) (Heparin (1000 Units/ml)) 3,000 unit AFTER DIALYSIS CATHETER Last administered on 08/03/18at 14:18; Admin Dose 3,000 UNIT; Start 07/29/18 at 09:30 Famotidine (Pepcid) 20 mg DAILY PO Last administered on 08/04/18at 08:28; Admin Dose 20 MG; Start 07/31/18 at 09:00 Heparin Sodium (Porcine) (Heparin (5000 Units/1ml)) 5,000 unit BID SC Last administered on 08/04/18at 08:30; Admin Dose 5,000 UNIT; Start 08/01/18 at 09:00 Fentanyl (Sublimaze) 25 mcg Q2H PRN IV SEVERE PAIN LEVEL 7-10; Start 08/02/18 at 12:30 Collagenase (Santyl) 1 applic DAILY TOP ; Start 08/04/18 at 12:30 Collagenase (Santyl) 1 applic WHEN SOILED PRN TOP WHEN SOILED; Start 08/04/18 at 12:30 PETRA DELA CRUZ Aug 04, 2018 12:47
[2018-08-04] MEDS: COLLAGENASE 5 GM (UD JAR) TOP SCH (13:29)
--- NOTE | 2018-08-04 14:35 | CONS ---
Date/Time of Note Date/Time of Note DATE: 08/04/18 TIME: 14:35 Assessment/Plan Assessment/Plan Assessment/Plan 1. Acute renal failure due to ATN from sepsis 2. Sepsis due to PNA 3. Acute Hypoxemic respiratory failure due to PNA - Intubated on ventilator 4. H/o CAD s/p previous stent placement 5. h/o Pacemaker placement 6. H/o HTN 7. H/o HL 8. H/o Chronic back pain, Prostate CA 9. Hypernatremia - now resolved 10. Hyperuricemia, on allopurinol Plan:- started on HD on 07/28/18, Plan for HD today then we will keep pt on MWF schedule HIV, Hepatitis panel negative s/p tracheostomy , pulmonary following will follow up Result Diagram: 08/04/18 0541 08/04/18 0541 Results 24hrs Laboratory Tests Test 08/03/18 16:58 08/03/18 20:49 08/04/18 01:53 08/04/18 05:26 Bedside Glucose 161 156 162 173 Test 08/04/18 05:41 08/04/18 08:37 08/04/18 13:38 White Blood Count 9.8 Red Blood Count 2.64 L Hemoglobin 8.3 L Hematocrit 25.3 L Mean Corpuscular Volume 95.8 Mean Corpuscular 31.4 Hemoglobin Mean Corpuscular 32.8 Hemoglobin Concent Red Cell Distribution 15.1 H Width Platelet Count 168 Mean Platelet Volume 12.6 H Immature Granulocytes % 0.800 H Neutrophils % 81.5 H Lymphocytes % 5.6 L Monocytes % 10.1 Eosinophils % 1.6 Basophils % 0.4 Nucleated Red Blood 0.0 Cells % Immature Granulocytes # 0.080 H Neutrophils # 8.0 H Lymphocytes # 0.6 L Monocytes # 1.0 H Eosinophils # 0.2 Basophils # 0.0 Nucleated Red Blood 0.0 Cells # Sodium Level 136 Potassium Level 4.5 Chloride Level 100 Carbon Dioxide Level 25 Anion Gap 11 # Blood Urea Nitrogen 88 H Creatinine 3.52 H Est Glomerular Filtrat Rate mL/min Glucose Level 162 Calcium Level 8.2 L Bedside Glucose 161 170 Consultation Date/Type/Reason Admit Date/Time Jul 18, 2018 at 16:57 Initial Consult Date 07/19/18 Type of Consult NEPHROLOGY Requesting Provider: RUBÉN BENITO MD Exam/Review of Systems Vital Signs Vitals Vital Signs Date Temp Pulse Resp B/P (MAP) Pulse Ox O2 O2 Flow FiO2 Time Delivery Rate 08/04/18 106 35 100 30 13:35 08/04/18 97.7 145/75 Mechanical 11:55 (98) Ventilator Intake and Output 08/03/18 08/03/18 08/04/18 1515:00 23:00 07:00 IntakeIntake Total 370 ml 465 ml 310 ml OutputOutput Total 3330 ml 10 ml 50 ml BalanceBalance -2960 ml 455 ml 260 ml Exam GENERAL: Elderly gentleman comfortable post tracheostomy NECK: Supple. No JVD or lymphadenopathy. CARDIAC EXAM: S1, S2. No added sounds or murmurs. CHEST: clear bilaterally, No added sounds, rales or wheezes ABDOMEN: Soft, nontender. No guarding or rebound. EXTREMITIES: No cyanosis, clubbing or edema. NEUROLOGIC: Generalized weakness. No focal deficits. Medications Medications Current Medications IV Flush (NS 3 ml) 3 ml PER PROTOCOL IV ; Start 07/18/18 at 17:30 Ondansetron HCl (Zofran Inj) 4 mg Q6H PRN IV NAUSEA AND/OR VOMITING; Start 07/18/18 at 17:30 Acetaminophen (Tylenol Tab) 650 mg Q6H PRN PO PAIN LEVEL 1-3 OR FEVER Last administered on 08/04/18 05:28; Admin Dose 650 MG; Start 07/18/18 at 17:30 Atorvastatin Calcium (Lipitor) 40 mg QHS PO Last administered on 08/03/18 20:50; Admin Dose 40 MG; Start 07/18/18 at 21:00 Baclofen (Lioresal) 10 mg BID PO Last administered on 08/04/18 08:28; Admin Dose 10 MG; Start 07/18/18 at 21:00 Docusate Sodium (Colace) 100 mg BID PRN PO CONSTIPATION; Start 07/18/18 at 17:30 Doxazosin Mesylate (Cardura) 4 mg HS PO Last administered on 08/03/18 20:51; Admin Dose 4 MG; Start 07/18/18 at 21:00 Finasteride (Proscar) 5 mg DAILY PO Last administered on 08/04/18 08:28; Admin Dose 5 MG; Start 07/19/18 at 09:00 Haloperidol (Haldol) 5 mg Q2H PRN IM AGITATION Last administered on 07/19/18at 02:37; Admin Dose 5 MG; Start 07/18/18 at 23:30 Allopurinol (Zyloprim) 100 mg DAILY PO Last administered on 08/04/18 08:28; Admin Dose 100 MG; Start 07/21/18 at 09:00 Docusate Sodium (Colace Liquid Cup) 100 mg BID GTB Last administered on 08/04/18 08:28; Admin Dose 100 MG; Start 07/20/18 at 21:00 Morphine Sulfate (morphine) 6 mg Q4H PRN PO PAIN LEVEL 7-10 Last administered on 08/02/18 10:01; Admin Dose 6 MG; Start 07/21/18 at 11:00 Nifedipine (Procardia) 20 mg TID NGT Last administered on 08/04/18 13:29; Admin Dose 20 MG; Start 07/23/18 at 14:30 Lorazepam (Ativan) 1 mg Q4H PRN GTB AGITATION Last administered on 07/31/18 21:25; Admin Dose 1 MG; Start 07/24/18 at 11:00 Insulin Aspart (Novolog Insulin Pen) NOVOLOG *MILD* ALGORI... Q4 SC Last administered on 08/04/18 13:45; Admin Dose 1 UNIT; Start 07/26/18 at 17:00 Miscellaneous Information 1 ea NOTE XX ; Start 07/26/18 at 14:30 Glucose (Glutose) 15 gm Q15M PRN PO DECREASED GLUCOSE; Start 07/26/18 at 14:30 Glucose (Glutose) 22.5 gm Q15M PRN PO DECREASED GLUCOSE; Start 07/26/18 at 14:30 Dextrose (D50w Syringe) 25 ml Q15M PRN IV DECREASED GLUCOSE; Start 07/26/18 at 14:30 Dextrose (D50w Syringe) 50 ml Q15M PRN IV DECREASED GLUCOSE; Start 07/26/18 at 14:30 Glucagon (Glucagen) 1 mg Q15M PRN IM DECREASED GLUCOSE; Start 07/26/18 at 14:30 Glucose (Glutose) 15 gm Q15M PRN BUCCAL DECREASED GLUCOSE; Start 07/26/18 at 14:30 Heparin Sodium (Porcine) (Heparin (1000 Units/ml)) 3,000 unit AFTER DIALYSIS CATHETER Last administered on 08/03/18at 14:18; Admin Dose 3,000 UNIT; Start 07/29/18 at 09:30 Famotidine (Pepcid) 20 mg DAILY PO Last administered on 08/04/18at 08:28; Admin Dose 20 MG; Start 07/31/18 at 09:00 Heparin Sodium (Porcine) (Heparin (5000 Units/1ml)) 5,000 unit BID SC Last administered on 08/04/18at 08:30; Admin Dose 5,000 UNIT; Start 08/01/18 at 09:00 Fentanyl (Sublimaze) 25 mcg Q2H PRN IV SEVERE PAIN LEVEL 7-10; Start 08/02/18 at 12:30 Collagenase (Santyl) 1 applic DAILY TOP Last administered on 08/04/18at 13:29; Admin Dose 1 APPLIC; Start 08/04/18 at 12:30 Collagenase (Santyl) 1 applic WHEN SOILED PRN TOP WHEN SOILED; Start 08/04/18 at 12:30 FELICIANO RAMIREZ MD Aug 04, 2018 14:35
--- NOTE | 2018-08-04 15:05 | CONS ---
Date/Time of Note Date/Time of Note DATE: 08/04/18 TIME: 15:04 Assessment/Plan Assessment/Plan Hospital Course Low-grade fever with a T-max of 100.5. WBC 9.8 neutrophils 81.5 Indwelling's: Trach NG tube Owens catheter Right upper extremity PICC line, permanent pacemaker, right femoral Vinnie catheter Antimicrobials: none s/p Cefepime Microbiology: Cultures since admission had been negative Physical examination: Chronically ill-appearing elderly man who is intubated in no distress. Head atraumatic normocephalic. Sclera nonicteric. Neck is supple chest rise symmetrical breath sounds diminished bases. Heart: S1-S2. Abdomen soft bowel sounds hypoactive. Extremities with dependent edema Assessment: 1. Status post septic shock 2. Acute hypoxemic respiratory failure 3. S/p pneumonia 4. Encephalopathy, likely toxic metabolic 5. Anemia 6. Acute renal failure, started on hemodialysis Plan: Remains hemodynamically stable, off abx, continue present care, reculture prn, pending PEG Result Diagram: 08/04/18 0541 08/04/18 0541 Results 24hrs Laboratory Tests Test 08/03/18 16:58 08/03/18 20:49 08/04/18 01:53 08/04/18 05:26 Bedside Glucose 161 156 162 173 Test 08/04/18 05:41 08/04/18 08:37 08/04/18 13:38 White Blood Count 9.8 Red Blood Count 2.64 L Hemoglobin 8.3 L Hematocrit 25.3 L Mean Corpuscular Volume 95.8 Mean Corpuscular 31.4 Hemoglobin Mean Corpuscular 32.8 Hemoglobin Concent Red Cell Distribution 15.1 H Width Platelet Count 168 Mean Platelet Volume 12.6 H Immature Granulocytes % 0.800 H Neutrophils % 81.5 H Lymphocytes % 5.6 L Monocytes % 10.1 Eosinophils % 1.6 Basophils % 0.4 Nucleated Red Blood 0.0 Cells % Immature Granulocytes # 0.080 H Neutrophils # 8.0 H Lymphocytes # 0.6 L Monocytes # 1.0 H Eosinophils # 0.2 Basophils # 0.0 Nucleated Red Blood 0.0 Cells # Sodium Level 136 Potassium Level 4.5 Chloride Level 100 Carbon Dioxide Level 25 Anion Gap 11 # Blood Urea Nitrogen 88 H Creatinine 3.52 H Est Glomerular Filtrat Rate mL/min Glucose Level 162 Calcium Level 8.2 L Bedside Glucose 161 170 Consultation Date/Type/Reason Admit Date/Time Jul 18, 2018 at 16:57 Initial Consult Date 07/19/18 Type of Consult ID Requesting Provider: RUBÉN BENITO MD Exam/Review of Systems Vital Signs Vitals Vital Signs Date Temp Pulse Resp B/P (MAP) Pulse Ox O2 O2 Flow FiO2 Time Delivery Rate 08/04/18 106 35 100 30 13:35 08/04/18 97.7 145/75 Mechanical 11:55 (98) Ventilator Intake and Output 08/03/18 08/03/18 08/04/18 1515:00 23:00 07:00 IntakeIntake Total 370 ml 465 ml 310 ml OutputOutput Total 3330 ml 10 ml 50 ml BalanceBalance -2960 ml 455 ml 260 ml Medications Medications Current Medications IV Flush (NS 3 ml) 3 ml PER PROTOCOL IV ; Start 07/18/18 at 17:30 Ondansetron HCl (Zofran Inj) 4 mg Q6H PRN IV NAUSEA AND/OR VOMITING; Start 07/18/18 at 17:30 Acetaminophen (Tylenol Tab) 650 mg Q6H PRN PO PAIN LEVEL 1-3 OR FEVER Last administered on 08/04/18 05:28; Admin Dose 650 MG; Start 07/18/18 at 17:30 Atorvastatin Calcium (Lipitor) 40 mg QHS PO Last administered on 08/03/18 20:50; Admin Dose 40 MG; Start 07/18/18 at 21:00 Baclofen (Lioresal) 10 mg BID PO Last administered on 08/04/18 08:28; Admin Dose 10 MG; Start 07/18/18 at 21:00 Docusate Sodium (Colace) 100 mg BID PRN PO CONSTIPATION; Start 07/18/18 at 17:30 Doxazosin Mesylate (Cardura) 4 mg HS PO Last administered on 08/03/18 20:51; Admin Dose 4 MG; Start 07/18/18 at 21:00 Finasteride (Proscar) 5 mg DAILY PO Last administered on 08/04/18 08:28; Admin Dose 5 MG; Start 07/19/18 at 09:00 Haloperidol (Haldol) 5 mg Q2H PRN IM AGITATION Last administered on 07/19/18at 02:37; Admin Dose 5 MG; Start 07/18/18 at 23:30 Allopurinol (Zyloprim) 100 mg DAILY PO Last administered on 08/04/18 08:28; Admin Dose 100 MG; Start 07/21/18 at 09:00 Docusate Sodium (Colace Liquid Cup) 100 mg BID GTB Last administered on 08/04/18 08:28; Admin Dose 100 MG; Start 07/20/18 at 21:00 Morphine Sulfate (morphine) 6 mg Q4H PRN PO PAIN LEVEL 7-10 Last administered on 08/02/18 10:01; Admin Dose 6 MG; Start 07/21/18 at 11:00 Nifedipine (Procardia) 20 mg TID NGT Last administered on 08/04/18 13:29; Admin Dose 20 MG; Start 07/23/18 at 14:30 Lorazepam (Ativan) 1 mg Q4H PRN GTB AGITATION Last administered on 07/31/18 21:25; Admin Dose 1 MG; Start 07/24/18 at 11:00 Insulin Aspart (Novolog Insulin Pen) NOVOLOG *MILD* ALGORI... Q4 SC Last administered on 08/04/18 13:45; Admin Dose 1 UNIT; Start 07/26/18 at 17:00 Miscellaneous Information 1 ea NOTE XX ; Start 07/26/18 at 14:30 Glucose (Glutose) 15 gm Q15M PRN PO DECREASED GLUCOSE; Start 07/26/18 at 14:30 Glucose (Glutose) 22.5 gm Q15M PRN PO DECREASED GLUCOSE; Start 07/26/18 at 14:30 Dextrose (D50w Syringe) 25 ml Q15M PRN IV DECREASED GLUCOSE; Start 07/26/18 at 14:30 Dextrose (D50w Syringe) 50 ml Q15M PRN IV DECREASED GLUCOSE; Start 07/26/18 at 14:30 Glucagon (Glucagen) 1 mg Q15M PRN IM DECREASED GLUCOSE; Start 07/26/18 at 14:30 Glucose (Glutose) 15 gm Q15M PRN BUCCAL DECREASED GLUCOSE; Start 07/26/18 at 14:30 Heparin Sodium (Porcine) (Heparin (1000 Units/ml)) 3,000 unit AFTER DIALYSIS CATHETER Last administered on 08/03/18 14:18; Admin Dose 3,000 UNIT; Start 07/29/18 at 09:30 Famotidine (Pepcid) 20 mg DAILY PO Last administered on 08/04/18at 08:28; Admin Dose 20 MG; Start 07/31/18 at 09:00 Heparin Sodium (Porcine) (Heparin (5000 Units/1ml)) 5,000 unit BID SC Last adm inistered on 08/04/18at 08:30; Admin Dose 5,000 UNIT; Start 08/01/18 at 09:00 Fentanyl (Sublimaze) 25 mcg Q2H PRN IV SEVERE PAIN LEVEL 7-10; Start 08/02/18 at 12:30 Collagenase (Santyl) 1 applic DAILY TOP Last administered on 08/04/18at 13:29; Admin Dose 1 APPLIC; Start 08/04/18 at 12:30 Collagenase (Santyl) 1 applic WHEN SOILED PRN TOP WHEN SOILED; Start 08/04/18 at 12:30 NATALIA CARTAGENA NP Aug 04, 2018 15:05
--- NOTE | 2018-08-04 15:51 | PN ---
RADHA FISHER 08/04/18 1551: Date/Time of Note Date/Time of Note DATE: 08/04/18 TIME: 15:48 Assessment/Plan VTE Prophylaxis Risk score (from [facility] [place]0 risk: 17 SCD applied (from [facility] [place]): Yes Pharmacological prophylaxis: NA/contraindicated Pharm contraindication: surgical contra Lines/Catheters IV Catheter Type (from [facility]): Vinnie Cath Urinary Cath still in place: Yes Assessment/Plan Hospital Course Patient continues on ventilatory support via tracheostomy, patient remains hemodynamically stable, did not response to verbal or pain stimuli. Assessment/Plan -Acute hypoxemic respiratory failure, ventilatory support, Dr. Mendoza is following in pulmonology consultation. -Status post tracheostomy by Dr. Mejias, ENT on 08/02/18. -Possible pneumonia, continue antibiotics. Dr. Rebolledo is following in infection disease consultation. -Acute renal failure failure, started on hemodialysis. Dr. Mari is following and nephrology consultation -Encephalopathy. Dr. Herndon is following in neurology consultation. -Anemia, stool for OB, transfused as needed -Coronary artery disease history of stent placement. Dr. Lassiter is following in cardiology consultation. -PPM -History of prostate CA Further recommendations based on clinical course. Plan of care discussed with Dr. Benito. Result Diagram: 08/04/18 0541 08/04/18 0541 Results 24hrs Laboratory Tests Test 08/03/18 16:58 08/03/18 20:49 08/04/18 01:53 08/04/18 05:26 Bedside Glucose 161 156 162 173 Test 08/04/18 05:41 08/04/18 08:37 08/04/18 13:38 White Blood Count 9.8 Red Blood Count 2.64 L Hemoglobin 8.3 L Hematocrit 25.3 L Mean Corpuscular Volume 95.8 Mean Corpuscular 31.4 Hemoglobin Mean Corpuscular 32.8 Hemoglobin Concent Red Cell Distribution 15.1 H Width Platelet Count 168 Mean Platelet Volume 12.6 H Immature Granulocytes % 0.800 H Neutrophils % 81.5 H Lymphocytes % 5.6 L Monocytes % 10.1 Eosinophils % 1.6 Basophils % 0.4 Nucleated Red Blood 0.0 Cells % Immature Granulocytes # 0.080 H Neutrophils # 8.0 H Lymphocytes # 0.6 L Monocytes # 1.0 H Eosinophils # 0.2 Basophils # 0.0 Nucleated Red Blood 0.0 Cells # Sodium Level 136 Potassium Level 4.5 Chloride Level 100 Carbon Dioxide Level 25 Anion Gap 11 # Blood Urea Nitrogen 88 H Creatinine 3.52 H Est Glomerular Filtrat Rate mL/min Glucose Level 162 Calcium Level 8.2 L Bedside Glucose 161 170 Exam/Review of Systems Vital Signs Vitals Vital Signs Date Temp Pulse Resp B/P (MAP) Pulse Ox O2 O2 Flow FiO2 Time Delivery Rate 08/04/18 60 18 100 30 15:02 08/04/18 97.7 145/75 Mechanical 11:55 (98) Ventilator Intake and Output 08/03/18 08/03/18 08/04/18 1515:00 23:00 07:00 IntakeIntake Total 370 ml 465 ml 310 ml OutputOutput Total 3330 ml 10 ml 50 ml BalanceBalance -2960 ml 455 ml 260 ml Exam Constitutional: non-verbal, frail Respiratory: diminished breath sounds Cardiovascular: regular rate and rhythm, other (PPM) Gastrointestinal: soft, non-tender Genitourinary - Male: other ([place]) Musculoskeletal: nl extremities to inspection Extremities: normal pulses Neurological: unresponsive Additional Comments Right femoral Vinnie catheter Medications Medications Current Medications IV Flush (NS 3 ml) 3 ml PER PROTOCOL IV ; Start 07/18/18 at 17:30 Ondansetron HCl (Zofran Inj) 4 mg Q6H PRN IV NAUSEA AND/OR VOMITING; Start 07/18/18 at 17:30 Acetaminophen (Tylenol Tab) 650 mg Q6H PRN PO PAIN LEVEL 1-3 OR FEVER Last administered on 08/04/18 05:28; Admin Dose 650 MG; Start 07/18/18 at 17:30 Atorvastatin Calcium (Lipitor) 40 mg QHS PO Last administered on 08/03/18 20:50; Admin Dose 40 MG; Start 07/18/18 at 21:00 Baclofen (Lioresal) 10 mg BID PO Last administered on 08/04/18 08:28; Admin Dose 10 MG; Start 07/18/18 at 21:00 Docusate Sodium (Colace) 100 mg BID PRN PO CONSTIPATION; Start 07/18/18 at 17:30 Doxazosin Mesylate (Cardura) 4 mg HS PO Last administered on 08/03/18 20:51; Admin Dose 4 MG; Start 07/18/18 at 21:00 Finasteride (Proscar) 5 mg DAILY PO Last administered on 08/04/18 08:28; Admin Dose 5 MG; Start 07/19/18 at 09:00 Haloperidol (Haldol) 5 mg Q2H PRN IM AGITATION Last administered on 07/19/18at 02:37; Admin Dose 5 MG; Start 07/18/18 at 23:30 Allopurinol (Zyloprim) 100 mg DAILY PO Last administered on 08/04/18 08:28; Admin Dose 100 MG; Start 07/21/18 at 09:00 Docusate Sodium (Colace Liquid Cup) 100 mg BID GTB Last administered on 08/04/18 08:28; Admin Dose 100 MG; Start 07/20/18 at 21:00 Morphine Sulfate (morphine) 6 mg Q4H PRN PO PAIN LEVEL 7-10 Last administered on 08/02/18 10:01; Admin Dose 6 MG; Start 07/21/18 at 11:00 Nifedipine (Procardia) 20 mg TID NGT Last administered on 08/04/18 13:29; Admin Dose 20 MG; Start 07/23/18 at 14:30 Lorazepam (Ativan) 1 mg Q4H PRN GTB AGITATION Last administered on 07/31/18 21:25; Admin Dose 1 MG; Start 07/24/18 at 11:00 Insulin Aspart (Novolog Insulin Pen) NOVOLOG *MILD* ALGORI... Q4 SC Last administered on 08/04/18 13:45; Admin Dose 1 UNIT; Start 07/26/18 at 17:00 Miscellaneous Information 1 ea NOTE XX ; Start 07/26/18 at 14:30 Glucose (Glutose) 15 gm Q15M PRN PO DECREASED GLUCOSE; Start 07/26/18 at 14:30 Glucose (Glutose) 22.5 gm Q15M PRN PO DECREASED GLUCOSE; Start 07/26/18 at 14:30 Dextrose (D50w Syringe) 25 ml Q15M PRN IV DECREASED GLUCOSE; Start 07/26/18 at 14:30 Dextrose (D50w Syringe) 50 ml Q15M PRN IV DECREASED GLUCOSE; Start 07/26/18 at 14:30 Glucagon (Glucagen) 1 mg Q15M PRN IM DECREASED GLUCOSE; Start 07/26/18 at 14:30 Glucose (Glutose) 15 gm Q15M PRN BUCCAL DECREASED GLUCOSE; Start 07/26/18 at 14:30 Heparin Sodium (Porcine) (Heparin (1000 Units/ml)) 3,000 unit AFTER DIALYSIS CATHETER Last administered on 08/03/18at 14:18; Admin Dose 3,000 UNIT; Start 07/29/18 at 09:30 Famotidine (Pepcid) 20 mg DAILY PO Last administered on 08/04/18at 08:28; Admin Dose 20 MG; Start 07/31/18 at 09:00 Heparin Sodium (Porcine) (Heparin (5000 Units/1ml)) 5,000 unit BID SC Last administered on 08/04/18at 08:30; Admin Dose 5,000 UNIT; Start 08/01/18 at 09:00 Fentanyl (Sublimaze) 25 mcg Q2H PRN IV SEVERE PAIN LEVEL 7-10; Start 08/02/18 at 12:30 Collagenase (Santyl) 1 applic DAILY TOP Last administered on 08/04/18at 13:29; Admin Dose 1 APPLIC; Start 08/04/18 at 12:30 Collagenase (Santyl) 1 applic WHEN SOILED PRN TOP WHEN SOILED; Start 08/04/18 at 12:30 RUBÉN BENITO MD 08/16/18 1025: Assessment/Plan VTE Prophylaxis SCD applied (from [facility]): Yes Assessment/Plan Result Diagram: 08/04/18 0541 08/04/18 0541 RADHA FISHER Aug 04, 2018 15:51 RUBÉN BENITO MD Aug 16, 2018 10:25
[2018-08-04] MEDS: ATORVASTATIN 40 MG TAB PO SCH (21:59)
[2018-08-04] MEDS: DOXAZOSIN 4 MG TAB PO SCH (21:59)
[2018-08-05] VITALS (25 sets, daily range): BP systolic 105–152; BP diastolic 51–72; PULSE 60–103; RESP 15–23
[2018-08-05] MEDS: INSULIN ASPART [NOVOLOG] 3 ML PEN SC SCH ×6 (01:51→21:00)
[2018-08-05] MEDS: FINASTERIDE 5 MG TAB PO SCH (08:59)
[2018-08-05] MEDS: BACLOFEN 10 MG TAB PO SCH ×2 (08:59→20:58)
[2018-08-05] MEDS: FAMOTIDINE 20 MG TAB PO SCH (09:00)
[2018-08-05] MEDS: ALLOPURINOL 100 MG TAB PO SCH (09:00)
[2018-08-05] MEDS: NIFEdipine 10 MG CAP NGT SCH ×3 (09:00→20:58)
[2018-08-05] MEDS: COLLAGENASE 5 GM (UD JAR) TOP SCH (09:00)
[2018-08-05] MEDS: DOCUSATE SODIUM 10 MG/ML (10ML CUP) GTB SCH ×2 (09:01→20:58)
[2018-08-05] MEDS: BALSAM PERU/CASTOR OIL 60 GM TUBE TOP SCH ×2 (09:01→21:05)
[2018-08-05] MEDS: HEPARIN 5,000 UNIT/1 ML VIAL SC SCH ×2 (09:23→21:13)
--- NOTE | 2018-08-05 10:08 | CONS ---
Date/Time of Note Date/Time of Note DATE: 08/05/18 TIME: 10:06 Assessment/Plan Assessment/Plan Assessment/Plan 1. Hypertension, uncontrolled - better now - con't medical Rx - better now - HD Reasonable - marichuy Rx concurrently with renal team. 2. History of permanent pacemaker. No signs of dysfunction at this time, pr imarily ventricular pacing.Site looks well - with good fxn. site looks well. 3. History of percutaneous transluminal coronary angioplasty and stent placement - no intervention planned now. 4. Respiratory failure, status post intubation. 5. End-stage renal disease on hemodialysis - Rx as needed. Rs as needed. 6. Anemia. 7. Leukocytosis with a history of benign prostatic hypertrophy. 8. Pneumonia, bilateral- on anti-Bx - now trached - tolerated procedure well. Con;tRx. 9. Dementia. 10. Encephalopathy- off all sedation - no signs of spontaneous motion or response. Result Diagram: 08/05/18 0547 08/05/18 0547 Results 24hrs Laboratory Tests Test 08/04/18 13:38 08/04/18 17:10 08/04/18 21:47 08/05/18 01:47 Bedside Glucose 170 159 152 174 Test 08/05/18 05:47 08/05/18 05:49 08/05/18 09:11 White Blood Count 8.6 Red Blood Count 2.65 L Hemoglobin 8.4 L Hematocrit 25.5 L Mean Corpuscular Volume 96.2 Mean Corpuscular 31.7 Hemoglobin Mean Corpuscular 32.9 Hemoglobin Concent Red Cell Distribution 14.7 H Width Platelet Count 183 Mean Platelet Volume 12.8 H Immature Granulocytes % 0.700 H Neutrophils % 77.1 H Lymphocytes % 7.0 L Monocytes % 11.5 H Eosinophils % 3.4 Basophils % 0.3 Nucleated Red Blood 0.0 Cells % Immature Granulocytes # 0.060 H Neutrophils # 6.7 Lymphocytes # 0.6 L Monocytes # 1.0 H Eosinophils # 0.3 Basophils # 0.0 Nucleated Red Blood 0.0 Cells # Sodium Level 137 Potassium Level 5.0 Chloride Level 97 Carbon Dioxide Level 23 Anion Gap 17 H Blood Urea Nitrogen 121 #H Creatinine 4.34 H Est Glomerular Filtrat Rate mL/min Glucose Level 148 Calcium Level 8.1 L Bedside Glucose 151 151 Consultation Date/Type/Reason Admit Date/Time Jul 18, 2018 at 16:57 Initial Consult Date 07/19/18 Requesting Provider: RUBÉN BENTIO MD 24 HR Interval Summary Free Text/Dictation Chronically ill appearing - encephalopathic - pacer with good fxn - HD as needed - con't PNA rx. ROS: No fever, no chills, no nausea, no vomiting, no diarrhea/constipation - per nurse Exam/Review of Systems Vital Signs Vitals Vital Signs Date Temp Pulse Resp B/P (MAP) Pulse Ox O2 O2 Flow FiO2 Time Delivery Rate 08/05/18 60 18 100 30 09:00 08/05/18 98.0 152/72 07:58 (98) 08/05/18 Mechanical 04:03 Ventilator Intake and Output 08/04/18 08/04/18 08/05/18 1515:00 23:00 07:00 IntakeIntake Total 620 ml 630 ml OutputOutput Total 25 ml 25 ml BalanceBalance 595 ml 605 ml Exam General: WN/WD/NAD, AOx 0 HEENT: Unicetric/atraumatic/EOMI (does not follow commands) NECK: trach Lymph: no lymphadenopathy HEART: regular with no S3, II/ systolic murmur at apex, pacer LUNGS: Coarse sounds ABD: soft, NT, ND, +BS : Intact Neuro: non focal SKIN: chronic changes EXT: trace edema Medications Medications Current Medications IV Flush (NS 3 ml) 3 ml PER PROTOCOL IV ; Start 07/18/18 at 17:30 Ondansetron HCl (Zofran Inj) 4 mg Q6H PRN IV NAUSEA AND/OR VOMITING; Start 07/18/18 at 17:30 Acetaminophen (Tylenol Tab) 650 mg Q6H PRN PO PAIN LEVEL 1-3 OR FEVER Last administered on 08/04/18 05:28; Admin Dose 650 MG; Start 07/18/18 at 17:30 Atorvastatin Calcium (Lipitor) 40 mg QHS PO Last administered on 08/04/18 21:59; Admin Dose 40 MG; Start 07/18/18 at 21:00 Baclofen (Lioresal) 10 mg BID PO Last administered on 08/05/18 08:59; Admin Dose 10 MG; Start 07/18/18 at 21:00 Docusate Sodium (Colace) 100 mg BID PRN PO CONSTIPATION; Start 07/18/18 at 17:30 Doxazosin Mesylate (Cardura) 4 mg HS PO Last administered on 08/04/18 21:59; Admin Dose 4 MG; Start 07/18/18 at 21:00 Finasteride (Proscar) 5 mg DAILY PO Last administered on 08/05/18 08:59; Admin Dose 5 MG; Start 07/19/18 at 09:00 Haloperidol (Haldol) 5 mg Q2H PRN IM AGITATION Last administered on 07/19/18at 02:37; Admin Dose 5 MG; Start 07/18/18 at 23:30 Allopurinol (Zyloprim) 100 mg DAILY PO Last administered on 08/05/18 09:00; Admin Dose 100 MG; Start 07/21/18 at 09:00 Docusate Sodium (Colace Liquid Cup) 100 mg BID GTB Last administered on 08/05/18 09:01; Admin Dose 100 MG; Start 07/20/18 at 21:00 Morphine Sulfate (morphine) 6 mg Q4H PRN PO PAIN LEVEL 7-10 Last administered on 08/02/18 10:01; Admin Dose 6 MG; Start 07/21/18 at 11:00 Nifedipine (Procardia) 20 mg TID NGT Last administered on 08/05/18 09:00; Admin Dose 20 MG; Start 07/23/18 at 14:30 Lorazepam (Ativan) 1 mg Q4H PRN GTB AGITATION Last administered on 07/31/18 21:25; Admin Dose 1 MG; Start 07/24/18 at 11:00 Insulin Aspart (Novolog Insulin Pen) NOVOLOG *MILD* ALGORI... Q4 SC Last administered on 08/05/18 09:24; Admin Dose 1 UNIT; Start 07/26/18 at 17:00 Miscellaneous Information 1 ea NOTE XX ; Start 07/26/18 at 14:30 Glucose (Glutose) 15 gm Q15M PRN PO DECREASED GLUCOSE; Start 07/26/18 at 14:30 Glucose (Glutose) 22.5 gm Q15M PRN PO DECREASED GLUCOSE; Start 07/26/18 at 14:30 Dextrose (D50w Syringe) 25 ml Q15M PRN IV DECREASED GLUCOSE; Start 07/26/18 at 14:30 Dextrose (D50w Syringe) 50 ml Q15M PRN IV DECREASED GLUCOSE; Start 07/26/18 at 14:30 Glucagon (Glucagen) 1 mg Q15M PRN IM DECREASED GLUCOSE; Start 07/26/18 at 14:30 Glucose (Glutose) 15 gm Q15M PRN BUCCAL DECREASED GLUCOSE; Start 07/26/18 at 14:30 Heparin Sodium (Porcine) (Heparin (1000 Units/ml)) 3,000 unit AFTER DIALYSIS CATHETER Last administered on 08/03/18at 14:18; Admin Dose 3,000 UNIT; Start 07/29/18 at 09:30 Famotidine (Pepcid) 20 mg DAILY PO Last administered on 08/05/18at 09:00; Admin Dose 20 MG; Start 07/31/18 at 09:00 Heparin Sodium (Porcine) (Heparin (5000 Units/1ml)) 5,000 unit BID SC Last administered on 08/05/18at 09:23; Admin Dose 5,000 UNIT; Start 08/01/18 at 09:00 Fentanyl (Sublimaze) 25 mcg Q2H PRN IV SEVERE PAIN LEVEL 7-10; Start 08/02/18 at 12:30 Collagenase (Santyl) 1 applic DAILY TOP Last administered on 08/05/18at 09:00; Admin Dose 1 APPLIC; Start 08/04/18 at 12:30 Collagenase (Santyl) 1 applic WHEN SOILED PRN TOP WHEN SOILED; Start 08/04/18 at 12:30 WILLIAM OJEDA MD Aug 05, 2018 10:08
--- NOTE | 2018-08-05 10:24 | CONS ---
Date/Time of Note Date/Time of Note DATE: 08/05/18 TIME: 10:23 Assessment/Plan Assessment/Plan Assessment/Plan 1. Acute renal failure due to ATN from sepsis - started on HD during this admission on 07/28/18 2. Sepsis due to PNA 3. Acute Hypoxemic respiratory failure due to PNA - Intubated on ventilator 4. H/o CAD s/p previous stent placement 5. h/o Pacemaker placement 6. H/o HTN 7. H/o HL 8. H/o Chronic back pain, Prostate CA 9. Hypernatremia - now resolved 10. Hyperuricemia, on allopurinol Plan:- started on HD on 07/28/18, Plan for HD tomorrow then we will keep pt on MWF schedule HIV, Hepatitis panel negative s/p tracheostomy , pulmonary following will wait for pt to be more stable before considering permacath for training consultant HD access will follow up Result Diagram: 08/05/18 0547 08/05/18 0547 Results 24hrs Laboratory Tests Test 08/04/18 13:38 08/04/18 17:10 08/04/18 21:47 08/05/18 01:47 Bedside Glucose 170 159 152 174 Test 08/05/18 05:47 08/05/18 05:49 08/05/18 09:11 White Blood Count 8.6 Red Blood Count 2.65 L Hemoglobin 8.4 L Hematocrit 25.5 L Mean Corpuscular Volume 96.2 Mean Corpuscular 31.7 Hemoglobin Mean Corpuscular 32.9 Hemoglobin Concent Red Cell Distribution 14.7 H Width Platelet Count 183 Mean Platelet Volume 12.8 H Immature Granulocytes % 0.700 H Neutrophils % 77.1 H Lymphocytes % 7.0 L Monocytes % 11.5 H Eosinophils % 3.4 Basophils % 0.3 Nucleated Red Blood 0.0 Cells % Immature Granulocytes # 0.060 H Neutrophils # 6.7 Lymphocytes # 0.6 L Monocytes # 1.0 H Eosinophils # 0.3 Basophils # 0.0 Nucleated Red Blood 0.0 Cells # Sodium Level 137 Potassium Level 5.0 Chloride Level 97 Carbon Dioxide Level 23 Anion Gap 17 H Blood Urea Nitrogen 121 #H Creatinine 4.34 H Est Glomerular Filtrat Rate mL/min Glucose Level 148 Calcium Level 8.1 L Bedside Glucose 151 151 Consultation Date/Type/Reason Admit Date/Time Jul 18, 2018 at 16:57 Initial Consult Date 07/19/18 Type of Consult NEPHROLOGY Requesting Provider: RUBÉN BENITO MD 24 HR Interval Summary Free Text/Dictation plan for Hd tomorrow, BP stable Exam/Review of Systems Vital Signs Vitals Vital Signs Date Temp Pulse Resp B/P (MAP) Pulse Ox O2 O2 Flow FiO2 Time Delivery Rate 08/05/18 60 18 100 30 09:00 08/05/18 98.0 152/72 07:58 (98) 08/05/18 Mechanical 04:03 Ventilator Intake and Output 08/04/18 08/04/18 08/05/18 1515:00 23:00 07:00 IntakeIntake Total 620 ml 630 ml OutputOutput Total 25 ml 25 ml BalanceBalance 595 ml 605 ml Exam GENERAL: No acute distress, Comfortable, status post tracheostomy NECK: Supple. No JVD or lymphadenopathy. CARDIAC EXAM: S1, S2. No added sounds or murmurs. CHEST: clear bilaterally, No added sounds, rales or wheezes ABDOMEN: Soft, nontender. No guarding or rebound. EXTREMITIES: No cyanosis, clubbing or edema. NEUROLOGIC: Generalized weakness. No focal deficits. Medications Medications Current Medications IV Flush (NS 3 ml) 3 ml PER PROTOCOL IV ; Start 07/18/18 at 17:30 Ondansetron HCl (Zofran Inj) 4 mg Q6H PRN IV NAUSEA AND/OR VOMITING; Start 07/18/18 at 17:30 Acetaminophen (Tylenol Tab) 650 mg Q6H PRN PO PAIN LEVEL 1-3 OR FEVER Last administered on 08/04/18 05:28; Admin Dose 650 MG; Start 07/18/18 at 17:30 Atorvastatin Calcium (Lipitor) 40 mg QHS PO Last administered on 08/04/18 21:59; Admin Dose 40 MG; Start 07/18/18 at 21:00 Baclofen (Lioresal) 10 mg BID PO Last administered on 08/05/18 08:59; Admin Dose 10 MG; Start 07/18/18 at 21:00 Docusate Sodium (Colace) 100 mg BID PRN PO CONSTIPATION; Start 07/18/18 at 17:30 Doxazosin Mesylate (Cardura) 4 mg HS PO Last administered on 08/04/18 21:59; Admin Dose 4 MG; Start 07/18/18 at 21:00 Finasteride (Proscar) 5 mg DAILY PO Last administered on 08/05/18 08:59; Admin Dose 5 MG; Start 07/19/18 at 09:00 Haloperidol (Haldol) 5 mg Q2H PRN IM AGITATION Last administered on 07/19/18at 02:37; Admin Dose 5 MG; Start 07/18/18 at 23:30 Allopurinol (Zyloprim) 100 mg DAILY PO Last administered on 08/05/18 09:00; Admin Dose 100 MG; Start 07/21/18 at 09:00 Docusate Sodium (Colace Liquid Cup) 100 mg BID GTB Last administered on 08/05/18 09:01; Admin Dose 100 MG; Start 07/20/18 at 21:00 Morphine Sulfate (morphine) 6 mg Q4H PRN PO PAIN LEVEL 7-10 Last administered on 08/02/18 10:01; Admin Dose 6 MG; Start 07/21/18 at 11:00 Nifedipine (Procardia) 20 mg TID NGT Last administered on 08/05/18 09:00; Admin Dose 20 MG; Start 07/23/18 at 14:30 Lorazepam (Ativan) 1 mg Q4H PRN GTB AGITATION Last administered on 07/31/18 21:25; Admin Dose 1 MG; Start 07/24/18 at 11:00 Insulin Aspart (Novolog Insulin Pen) NOVOLOG *MILD* ALGORI... Q4 SC Last administered on 08/05/18 09:24; Admin Dose 1 UNIT; Start 07/26/18 at 17:00 Miscellaneous Information 1 ea NOTE XX ; Start 07/26/18 at 14:30 Glucose (Glutose) 15 gm Q15M PRN PO DECREASED GLUCOSE; Start 07/26/18 at 14:30 Glucose (Glutose) 22.5 gm Q15M PRN PO DECREASED GLUCOSE; Start 07/26/18 at 14:30 Dextrose (D50w Syringe) 25 ml Q15M PRN IV DECREASED GLUCOSE; Start 07/26/18 at 14:30 Dextrose (D50w Syringe) 50 ml Q15M PRN IV DECREASED GLUCOSE; Start 07/26/18 at 14:30 Glucagon (Glucagen) 1 mg Q15M PRN IM DECREASED GLUCOSE; Start 07/26/18 at 14:30 Glucose (Glutose) 15 gm Q15M PRN BUCCAL DECREASED GLUCOSE; Start 07/26/18 at 14:30 Heparin Sodium (Porcine) (Heparin (1000 Units/ml)) 3,000 unit AFTER DIALYSIS CATHETER Last administered on 08/03/18 14:18; Admin Dose 3,000 UNIT; Start 07/29/18 at 09:30 Famotidine (Pepcid) 20 mg DAILY PO Last administered on 08/05/18 09:00; Admin Dose 20 MG; Start 07/31/18 at 09:00 Heparin Sodium (Porcine) (Heparin (5000 Units/1ml)) 5,000 unit BID SC Last administered on 08/05/18 09:23; Admin Dose 5,000 UNIT; Start 08/01/18 at 09:00 Fentanyl (Sublimaze) 25 mcg Q2H PRN IV SEVERE PAIN LEVEL 7-10; Start 08/02/18 at 12:30 Collagenase (Santyl) 1 applic DAILY TOP Last administered on 08/05/18 09:00; Admin Dose 1 APPLIC; Start 08/04/18 at 12:30 Collagenase (Santyl) 1 applic WHEN SOILED PRN TOP WHEN SOILED; Start 08/04/18 at 12:30 FELICIANO RAMIREZ MD Aug 05, 2018 10:24
--- NOTE | 2018-08-05 11:17 | CONS ---
Date/Time of Note Date/Time of Note DATE: 08/05/18 TIME: 11:16 Consult Date/Type/Reason Admit Date/Time Jul 18, 2018 at 16:57 Initial Consult Date 07/19/18 Type of Consultation: Pulm/CCM Requesting Provider: RUBÉN BENITO MD Subjective Patient remained stable this morning. No new events Objective Vital Signs Date Temp Pulse Resp B/P (MAP) Pulse Ox O2 O2 Flow FiO2 Time Delivery Rate 08/05/18 60 20 100 30 11:12 08/05/18 98.0 152/72 07:58 (98) 08/05/18 Mechanical 04:03 Ventilator Intake and Output 08/04/18 08/04/18 08/05/18 1515:00 23:00 07:00 IntakeIntake Total 620 ml 630 ml OutputOutput Total 25 ml 25 ml BalanceBalance 595 ml 605 ml Exam GENERAL: Elderly gentleman comfortable post tracheostomy VITAL SIGNS: per chart NECK: Supple. No JVD or lymphadenopathy. CARDIAC EXAM: S1, S2. No added sounds or murmurs. CHEST: clear bilaterally, No added sounds, rales or wheezes ABDOMEN: Soft, nontender. No guarding or rebound. EXTREMITIES: No cyanosis, clubbing or edema. NEUROLOGIC: Generalized weakness. No focal deficits. Results/Medications Result Diagram: 08/05/18 0547 08/05/18 0547 Results 24 hrs Laboratory Tests Test 08/04/18 13:38 08/04/18 17:10 08/04/18 21:47 08/05/18 01:47 Bedside Glucose 170 159 152 174 Test 08/05/18 05:47 08/05/18 05:49 08/05/18 09:11 White Blood Count 8.6 Red Blood Count 2.65 L Hemoglobin 8.4 L Hematocrit 25.5 L Mean Corpuscular Volume 96.2 Mean Corpuscular 31.7 Hemoglobin Mean Corpuscular 32.9 Hemoglobin Concent Red Cell Distribution 14.7 H Width Platelet Count 183 Mean Platelet Volume 12.8 H Immature Granulocytes % 0.700 H Neutrophils % 77.1 H Lymphocytes % 7.0 L Monocytes % 11.5 H Eosinophils % 3.4 Basophils % 0.3 Nucleated Red Blood 0.0 Cells % Immature Granulocytes # 0.060 H Neutrophils # 6.7 Lymphocytes # 0.6 L Monocytes # 1.0 H Eosinophils # 0.3 Basophils # 0.0 Nucleated Red Blood 0.0 Cells # Sodium Level 137 Potassium Level 5.0 Chloride Level 97 Carbon Dioxide Level 23 Anion Gap 17 H Blood Urea Nitrogen 121 #H Creatinine 4.34 H Est Glomerular Filtrat Rate mL/min Glucose Level 148 Calcium Level 8.1 L Bedside Glucose 151 151 Medications Current Medications IV Flush (NS 3 ml) 3 ml PER PROTOCOL IV ; Start 07/18/18 at 17:30 Ondansetron HCl (Zofran Inj) 4 mg Q6H PRN IV NAUSEA AND/OR VOMITING; Start 07/18/18 at 17:30 Acetaminophen (Tylenol Tab) 650 mg Q6H PRN PO PAIN LEVEL 1-3 OR FEVER Last administered on 08/04/18 05:28; Admin Dose 650 MG; Start 07/18/18 at 17:30 Atorvastatin Calcium (Lipitor) 40 mg QHS PO Last administered on 08/04/18 21:59; Admin Dose 40 MG; Start 07/18/18 at 21:00 Baclofen (Lioresal) 10 mg BID PO Last administered on 08/05/18 08:59; Admin Dose 10 MG; Start 07/18/18 at 21:00 Docusate Sodium (Colace) 100 mg BID PRN PO CONSTIPATION; Start 07/18/18 at 17:30 Doxazosin Mesylate (Cardura) 4 mg HS PO Last administered on 08/04/18 21:59; Admin Dose 4 MG; Start 07/18/18 at 21:00 Finasteride (Proscar) 5 mg DAILY PO Last administered on 08/05/18 08:59; Admin Dose 5 MG; Start 07/19/18 at 09:00 Haloperidol (Haldol) 5 mg Q2H PRN IM AGITATION Last administered on 07/19/18at 02:37; Admin Dose 5 MG; Start 07/18/18 at 23:30 Allopurinol (Zyloprim) 100 mg DAILY PO Last administered on 08/05/18 09:00; Admin Dose 100 MG; Start 07/21/18 at 09:00 Docusate Sodium (Colace Liquid Cup) 100 mg BID GTB Last administered on 08/05/18 09:01; Admin Dose 100 MG; Start 07/20/18 at 21:00 Morphine Sulfate (morphine) 6 mg Q4H PRN PO PAIN LEVEL 7-10 Last administered on 08/02/18 10:01; Admin Dose 6 MG; Start 07/21/18 at 11:00 Nifedipine (Procardia) 20 mg TID NGT Last administered on 08/05/18 09:00; Admin Dose 20 MG; Start 07/23/18 at 14:30 Lorazepam (Ativan) 1 mg Q4H PRN GTB AGITATION Last administered on 07/31/18 21:25; Admin Dose 1 MG; Start 07/24/18 at 11:00 Insulin Aspart (Novolog Insulin Pen) NOVOLOG *MILD* ALGORI... Q4 SC Last administered on 08/05/18 09:24; Admin Dose 1 UNIT; Start 07/26/18 at 17:00 Miscellaneous Information 1 ea NOTE XX ; Start 07/26/18 at 14:30 Glucose (Glutose) 15 gm Q15M PRN PO DECREASED GLUCOSE; Start 07/26/18 at 14:30 Glucose (Glutose) 22.5 gm Q15M PRN PO DECREASED GLUCOSE; Start 07/26/18 at 14:30 Dextrose (D50w Syringe) 25 ml Q15M PRN IV DECREASED GLUCOSE; Start 07/26/18 at 14:30 Dextrose (D50w Syringe) 50 ml Q15M PRN IV DECREASED GLUCOSE; Start 07/26/18 at 14:30 Glucagon (Glucagen) 1 mg Q15M PRN IM DECREASED GLUCOSE; Start 07/26/18 at 14:30 Glucose (Glutose) 15 gm Q15M PRN BUCCAL DECREASED GLUCOSE; Start 07/26/18 at 14:30 Heparin Sodium (Porcine) (Heparin (1000 Units/ml)) 3,000 unit AFTER DIALYSIS CATHETER Last administered on 08/03/18 14:18; Admin Dose 3,000 UNIT; Start 07/29/18 at 09:30 Famotidine (Pepcid) 20 mg DAILY PO Last administered on 08/05/18 09:00; Admin Dose 20 MG; Start 07/31/18 at 09:00 Heparin Sodium (Porcine) (Heparin (5000 Units/1ml)) 5,000 unit BID SC Last administered on 08/05/18 09:23; Admin Dose 5,000 UNIT; Start 08/01/18 at 09:00 Fentanyl (Sublimaze) 25 mcg Q2H PRN IV SEVERE PAIN LEVEL 7-10; Start 08/02/18 at 12:30 Collagenase (Santyl) 1 applic DAILY TOP Last administered on 08/05/18at 09:00; Admin Dose 1 APPLIC; Start 08/04/18 at 12:30 Collagenase (Santyl) 1 applic WHEN SOILED PRN TOP WHEN SOILED; Start 08/04/18 at 12:30 Assessment/Plan Chief Complaint/Hosp Course IMP: 1. Acute hypoxemic respiratory failure 2/2 multifocal pneumonia; cannot exclude co-existing bland hemorrhage/volume overload--now failure to wean 2. Encephalopathy toxic metabolic 3. Anemia 4. MYKE--FeUrea c/w intrinsic renal cause 5. Dysphagia 6. Anemia RECS: 1. Vent support 2. HD/UF as per Renal 3. Avoid sedatives; 4. TF/Free H20 5. GI/VTE prophylaxis 6. Palliative Consult Bilateral versus fdc facility placement [facility] RICO MD, [facility] Aug 05, 2018 11:17
--- NOTE | 2018-08-05 14:12 | CONS ---
Date/Time of Note Date/Time of Note DATE: 08/05/18 TIME: 14:12 Assessment/Plan Assessment/Plan Hospital Course No acute events patient is noncommunicative lying comfortably in bed, no fevers overnight Indwelling's: Trach NG tube Owens catheter Right upper extremity PICC line, permanent pacemaker, right femoral Vinnie catheter Antimicrobials: none s/p Cefepime Microbiology: Cultures since admission had been negative Physical examination: Chronically ill-appearing elderly man who is intubated in no distress. Head atraumatic normocephalic. Sclera nonicteric. Neck is supple chest rise symmetrical breath sounds diminished bases. Heart: S1-S2. Abdomen soft bowel sounds hypoactive. Extremities with dependent edema Assessment: 1. Status post septic shock 2. Acute hypoxemic respiratory failure 3. S/p pneumonia 4. Encephalopathy, likely toxic metabolic 5. Anemia 6. Acute renal failure, started on hemodialysis Plan: Remains hemodynamically stable, off abx, continue present care, reculture prn, pending PEG Result Diagram: 08/05/18 0547 08/05/18 0547 Results 24hrs Laboratory Tests Test 08/04/18 17:10 08/04/18 21:47 08/05/18 01:47 08/05/18 05:47 Bedside Glucose 159 152 174 White Blood Count 8.6 Red Blood Count 2.65 L Hemoglobin 8.4 L Hematocrit 25.5 L Mean Corpuscular Volume 96.2 Mean Corpuscular 31.7 Hemoglobin Mean Corpuscular 32.9 Hemoglobin Concent Red Cell Distribution 14.7 H Width Platelet Count 183 Mean Platelet Volume 12.8 H Immature Granulocytes % 0.700 H Neutrophils % 77.1 H Lymphocytes % 7.0 L Monocytes % 11.5 H Eosinophils % 3.4 Basophils % 0.3 Nucleated Red Blood 0.0 Cells % Immature Granulocytes # 0.060 H Neutrophils # 6.7 Lymphocytes # 0.6 L Monocytes # 1.0 H Eosinophils # 0.3 Basophils # 0.0 Nucleated Red Blood 0.0 Cells # Sodium Level 137 Potassium Level 5.0 Chloride Level 97 Carbon Dioxide Level 23 Anion Gap 17 H Blood Urea Nitrogen 121 #H Creatinine 4.34 H Est Glomerular Filtrat Rate mL/min Glucose Level 148 Calcium Level 8.1 L Test 08/05/18 05:49 08/05/18 09:11 08/05/18 13:23 Bedside Glucose 151 151 157 Consultation Date/Type/Reason Admit Date/Time Jul 18, 2018 at 16:57 Initial Consult Date 07/19/18 Type of Consult ID Requesting Provider: RUBÉN BENITO MD Exam/Review of Systems Vital Signs Vitals Vital Signs Date Temp Pulse Resp B/P (MAP) Pulse Ox O2 O2 Flow FiO2 Time Delivery Rate 08/05/18 30 12:06 08/05/18 98.4 80 16 122/53 100 11:59 (76) 08/05/18 Mechanical 04:03 Ventilator Intake and Output 08/04/18 08/04/18 08/05/18 1414:59 22:59 06:59 IntakeIntake Total 620 ml 630 ml OutputOutput Total 25 ml 25 ml BalanceBalance 595 ml 605 ml Medications Medications Current Medications IV Flush (NS 3 ml) 3 ml PER PROTOCOL IV ; Start 07/18/18 at 17:30 Ondansetron HCl (Zofran Inj) 4 mg Q6H PRN IV NAUSEA AND/OR VOMITING; Start 07/18/18 at 17:30 Acetaminophen (Tylenol Tab) 650 mg Q6H PRN PO PAIN LEVEL 1-3 OR FEVER Last administered on 08/04/18 05:28; Admin Dose 650 MG; Start 07/18/18 at 17:30 Atorvastatin Calcium (Lipitor) 40 mg QHS PO Last administered on 08/04/18 21:59; Admin Dose 40 MG; Start 07/18/18 at 21:00 Baclofen (Lioresal) 10 mg BID PO Last administered on 08/05/18 08:59; Admin Dose 10 MG; Start 07/18/18 at 21:00 Docusate Sodium (Colace) 100 mg BID PRN PO CONSTIPATION; Start 07/18/18 at 17:30 Doxazosin Mesylate (Cardura) 4 mg HS PO Last administered on 08/04/18 21:59; Admin Dose 4 MG; Start 07/18/18 at 21:00 Finasteride (Proscar) 5 mg DAILY PO Last administered on 08/05/18 08:59; Admin Dose 5 MG; Start 07/19/18 at 09:00 Haloperidol (Haldol) 5 mg Q2H PRN IM AGITATION Last administered on 07/19/18at 02:37; Admin Dose 5 MG; Start 07/18/18 at 23:30 Allopurinol (Zyloprim) 100 mg DAILY PO Last administered on 08/05/18 09:00; Admin Dose 100 MG; Start 07/21/18 at 09:00 Docusate Sodium (Colace Liquid Cup) 100 mg BID GTB Last administered on 08/05 09:01; Admin Dose 100 MG; Start 07/20/18 at 21:00 Morphine Sulfate (morphine) 6 mg Q4H PRN PO PAIN LEVEL 7-10 Last administered on 08/02/18 10:01; Admin Dose 6 MG; Start 07/21/18 at 11:00 Nifedipine (Procardia) 20 mg TID NGT Last administered on 08/05/18 13:24; Admin Dose 20 MG; Start 07/23/18 at 14:30 Lorazepam (Ativan) 1 mg Q4H PRN GTB AGITATION Last administered on 07/31/18 21:25; Admin Dose 1 MG; Start 07/24/18 at 11:00 Insulin Aspart (Novolog Insulin Pen) NOVOLOG *MILD* ALGORI... Q4 SC Last administered on 08/05/18 13:33; Admin Dose 1 UNIT; Start 07/26/18 at 17:00 Miscellaneous Information 1 ea NOTE XX ; Start 07/26/18 at 14:30 Glucose (Glutose) 15 gm Q15M PRN PO DECREASED GLUCOSE; Start 07/26/18 at 14:30 Glucose (Glutose) 22.5 gm Q15M PRN PO DECREASED GLUCOSE; Start 07/26/18 at 14:30 Dextrose (D50w Syringe) 25 ml Q15M PRN IV DECREASED GLUCOSE; Start 07/26/18 at 14:30 Dextrose (D50w Syringe) 50 ml Q15M PRN IV DECREASED GLUCOSE; Start 07/26/18 at 14:30 Glucagon (Glucagen) 1 mg Q15M PRN IM DECREASED GLUCOSE; Start 07/26/18 at 14:30 Glucose (Glutose) 15 gm Q15M PRN BUCCAL DECREASED GLUCOSE; Start 07/26/18 at 14:30 Heparin Sodium (Porcine) (Heparin (1000 Units/ml)) 3,000 unit AFTER DIALYSIS CATHETER Last administered on 08/03/18 14:18; Admin Dose 3,000 UNIT; Start 07/29/18 at 09:30 Famotidine (Pepcid) 20 mg DAILY PO Last administered on 08/05/18at 09:00; Admin Dose 20 MG; Start 07/31/18 at 09:00 Heparin Sodium (Porcine) (Heparin (5000 Units/1ml)) 5,000 unit BID SC Last administered on 08/05/18at 09:23; Admin Dose 5,000 UNIT; Start 08/01/18 at 09:00 Fentanyl (Sublimaze) 25 mcg Q2H PRN IV SEVERE PAIN LEVEL 7-10; Start 08/02/18 at 12:30 Collagenase (Santyl) 1 applic DAILY TOP Last administered on 08/05/18at 09:00; Admin Dose 1 APPLIC; Start 08/04/18 at 12:30 Collagenase (Santyl) 1 applic WHEN SOILED PRN TOP WHEN SOILED; Start 08/04/18 at 12:30 NATALIA CARTAGENA NP Aug 05, 2018 14:12
--- NOTE | 2018-08-05 15:04 | PN ---
Date/Time of Note Date/Time of Note DATE: 08/05/18 TIME: 15:01 Assessment/Plan VTE Prophylaxis Risk score (from Ns)>0 risk: 11 SCD applied (from Ns): Yes Pharmacological prophylaxis: heparin Lines/Catheters IV [facility]from [facility] Vinnie Cath Central line still needed: Yes Urinary Cath still in place: Yes Reason Cath still needed: urinary retention Assessment/Plan Hospital Course Acute events overnight, no change in neuro status, patient continues on ventilatory support. Assessment/Plan -Acute hypoxemic respiratory failure, ventilatory support, Dr. Mendoza is following in pulmonology consultation. -Possible pneumonia, continue antibiotics. Dr. Rebolledo is asked to see patient in infection disease consultation. -Acute renal failure failure, started on hemodialysis. Dr. Mari is following and nephrology consultation -Encephalopathy. Dr. Herndon is following in neurology consultation. -Anemia, stool for OB, transfused as needed -Coronary artery disease history of stent placement. Dr. Lassiter is following in cardiology consultation. -PPM -History of prostate CA Further recommendations based on clinical course. Plan of care discussed with Dr. Brown. Result Diagram: 08/05/1847 08/05/1847 Results 24hrs Laboratory Tests Test 08/04/18 17:10 08/04/18 21:47 08/05/18 01:47 08/05/18 05:47 Bedside Glucose 159 152 174 White Blood Count 8.6 Red Blood Count 2.65 L Hemoglobin 8.4 L Hematocrit 25.5 L Mean Corpuscular Volume 96.2 Mean Corpuscular 31.7 Hemoglobin Mean Corpuscular 32.9 Hemoglobin Concent Red Cell Distribution 14.7 H Width Platelet Count 183 Mean Platelet Volume 12.8 H Immature Granulocytes % 0.700 H Neutrophils % 77.1 H Lymphocytes % 7.0 L Monocytes % 11.5 H Eosinophils % 3.4 Basophils % 0.3 Nucleated Red Blood 0.0 Cells % Immature Granulocytes # 0.060 H Neutrophils # 6.7 Lymphocytes # 0.6 L Monocytes # 1.0 H Eosinophils # 0.3 Basophils # 0.0 Nucleated Red Blood 0.0 Cells # Sodium Level 137 Potassium Level 5.0 Chloride Level 97 Carbon Dioxide Level 23 Anion Gap 17 H Blood Urea Nitrogen 121 #H Creatinine 4.34 H Est Glomerular Filtrat Rate mL/min Glucose Level 148 Calcium Level 8.1 L Test 1/8/19 05:49 08/05/18 09:11 08/05/18 13:23 Bedside Glucose 151 151 157 Exam/Review of Systems Vital Signs Vitals Vital Signs Date Temp Pulse Resp B/P (MAP) Pulse Ox O2 O2 Flow FiO2 Time Delivery Rate 08/05/18 80 14:27 08/05/18 19 100 30 13:05 08/05/18 98.4 122/53 11:59 (76) 08/05/18 Mechanical 04:03 Ventilator Intake and Output 08/04/18 08/04/18 08/05/18 1515:00 23:00 07:00 IntakeIntake Total 620 ml 630 ml OutputOutput Total 25 ml 25 ml BalanceBalance 595 ml 605 ml Exam Constitutional: non-verbal, frail Respiratory: diminished breath sounds Cardiovascular: regular rate and rhythm, other (PPM) Gastrointestinal: soft, non-tender Genitourinary - Male: other (Owens) Musculoskeletal: nl extremities to inspection Extremities: normal pulses Neurological: unresponsive Additional Comments Right femoral Vinnie catheter Medications Medications Current Medications IV Flush (NS 3 ml) 3 ml PER PROTOCOL IV ; Start 07/18/18 at 17:30 Ondansetron HCl (Zofran Inj) 4 mg Q6H PRN IV NAUSEA AND/OR VOMITING; Start 07/18/18 at 17:30 Acetaminophen (Tylenol Tab) 650 mg Q6H PRN PO PAIN LEVEL 1-3 OR FEVER Last admi nistered on 08/04/18 05:28; Admin Dose 650 MG; Start 07/18/18 at 17:30 Atorvastatin Calcium (Lipitor) 40 mg QHS PO Last administered on 08/04/18 21:59; Admin Dose 40 MG; Start 07/18/18 at 21:00 Baclofen (Lioresal) 10 mg BID PO Last administered on 08/05/18 08:59; Admin Dose 10 MG; Start 07/18/18 at 21:00 Docusate Sodium (Colace) 100 mg BID PRN PO CONSTIPATION; Start 07/18/18 at 17:30 Doxazosin Mesylate (Cardura) 4 mg HS PO Last administered on 08/04/18 21:59; Admin Dose 4 MG; Start 07/18/18 at 21:00 Finasteride (Proscar) 5 mg DAILY PO Last administered on 08/05/18 08:59; Admin Dose 5 MG; Start 07/19/18 at 09:00 Haloperidol (Haldol) 5 mg Q2H PRN IM AGITATION Last administered on 07/19/18 02:37; Admin Dose 5 MG; Start 07/18/18 at 23:30 Allopurinol (Zyloprim) 100 mg DAILY PO Last administered on 08/05/18 09:00; Admin Dose 100 MG; Start 07/21/18 at 09:00 Docusate Sodium (Colace Liquid Cup) 100 mg BID GTB Last administered on 08/05/18 09:01; Admin Dose 100 MG; Start 07/20/18 at 21:00 Morphine Sulfate (morphine) 6 mg Q4H PRN PO PAIN LEVEL 7-10 Last administered on 08/02/18 10:01; Admin Dose 6 MG; Start 07/21/18 at 11:00 Nifedipine (Procardia) 20 mg TID NGT Last administered on 08/05/18 13:24; Admin Dose 20 MG; Start 07/23/18 at 14:30 Lorazepam (Ativan) 1 mg Q4H PRN GTB AGITATION Last administered on 07/31/18 21:25; Admin Dose 1 MG; Start 07/24/18 at 11:00 Insulin Aspart (Novolog Insulin Pen) NOVOLOG *MILD* ALGORI... Q4 SC Last administered on 08/05/18 13:33; Admin Dose 1 UNIT; Start 07/26/18 at 17:00 Miscellaneous Information 1 ea NOTE XX ; Start 07/26/18 at 14:30 Glucose (Glutose) 15 gm Q15M PRN PO DECREASED GLUCOSE; Start 07/26/18 at 14:30 Glucose (Glutose) 22.5 gm Q15M PRN PO DECREASED GLUCOSE; Start 07/26/18 at 14:30 Dextrose (D50w Syringe) 25 ml Q15M PRN IV DECREASED GLUCOSE; Start 07/26/18 at 14:30 Dextrose (D50w Syringe) 50 ml Q15M PRN IV DECREASED GLUCOSE; Start 07/26/18 at 14:30 Glucagon (Glucagen) 1 mg Q15M PRN IM DECREASED GLUCOSE; Start 07/26/18 at 14:30 Glucose (Glutose) 15 gm Q15M PRN BUCCAL DECREASED GLUCOSE; Start 07/26/18 at 14:30 Heparin Sodium (Porcine) (Heparin (1000 Units/ml)) 3,000 unit AFTER DIALYSIS CATHETER Last administered on 08/03/18 14:18; Admin Dose 3,000 UNIT; Start 07/29/18 at 09:30 Famotidine (Pepcid) 20 mg DAILY PO Last administered on 08/05/18 09:00; Admin Dose 20 MG; Start 07/31/18 at 09:00 Heparin Sodium (Porcine) (Heparin (5000 Units/1ml)) 5,000 unit BID SC Last administered on 08/05/18 09:23; Admin Dose 5,000 UNIT; Start 08/01/18 at 09:00 Fentanyl (Sublimaze) 25 mcg Q2H PRN IV SEVERE PAIN LEVEL 7-10; Start 08/02/18 at 12:30 Collagenase (Santyl) 1 applic DAILY TOP Last administered on 08/05/18 09:00; Admin Dose 1 APPLIC; Start 08/04/18 at 12:30 Collagenase (Santyl) 1 applic WHEN SOILED PRN TOP WHEN SOILED; Start 08/04/18 at 12:30 RADHA FISHER Aug 05, 2018 15:04
--- NOTE | 2018-08-05 15:43 | CONS ---
Assessment/Plan Assessment/Plan Hospital Course 83 M who is admitted for management of acute respiratory failure. CXR revealed bilateral pneumonias.. Neurology is consulted to evaluate ams.. Of note, he remains in severe MYKE requiring HD..which is a likely contributor.. Also notably, he was on sedation for a prolonged period, which has now been held. Most clinically consistent w/ an acute and severe toxic-metabolic encephalopathy.. CTH is without acute intracranial pathology. EEG is without epileptiform activity. P: Ok to defer additional neuroimaging for now Cont to limit sedating medications where possible Other medical management and supportive care per primary Will follow clinically Result Diagram: 08/05/18 0547 08/05/18 0547 Results 24hrs Laboratory Tests Test 08/04/18 17:10 08/04/18 21:47 08/05/18 01:47 08/05/18 05:47 Bedside Glucose 159 152 174 White Blood Count 8.6 Red Blood Count 2.65 L Hemoglobin 8.4 L Hematocrit 25.5 L Mean Corpuscular Volume 96.2 Mean Corpuscular 31.7 Hemoglobin Mean Corpuscular 32.9 Hemoglobin Concent Red Cell Distribution 14.7 H Width Platelet Count 183 Mean Platelet Volume 12.8 H Immature Granulocytes % 0.700 H Neutrophils % 77.1 H Lymphocytes % 7.0 L Monocytes % 11.5 H Eosinophils % 3.4 Basophils % 0.3 Nucleated Red Blood 0.0 Cells % Immature Granulocytes # 0.060 H Neutrophils # 6.7 Lymphocytes # 0.6 L Monocytes # 1.0 H Eosinophils # 0.3 Basophils # 0.0 Nucleated Red Blood 0.0 Cells # Sodium Level 137 Potassium Level 5.0 Chloride Level 97 Carbon Dioxide Level 23 Anion Gap 17 H Blood Urea Nitrogen 121 #H Creatinine 4.34 H Est Glomerular Filtrat Rate mL/min Glucose Level 148 Calcium Level 8.1 L Test 08/05/18 05:49 08/05/18 09:11 08/05/18 13:23 Bedside Glucose 151 151 157 Consultation Date/Type/Reason Admit Date/Time Jul 18, 2018 at 16:57 Type of Consult Neurology Requesting Provider: RUBÉN BENITO MD Date/Time of Note DATE: 08/05/18 TIME: 15:43 24 HR Interval Summary Free Text/Dictation Continues telemetry monitoring. No acute events reported at this time. Subjective hx not possible: pt non-verbal Exam Vital Signs Vitals Vital Signs Date Temp Pulse Resp B/P (MAP) Pulse Ox O2 O2 Flow FiO2 Time Delivery Rate 08/05/18 60 22 100 30 15:15 08/05/18 98.6 135/55 15:14 (81) 08/05/18 Mechanical 04:03 Ventilator Intake and Output 08/04/18 08/04/18 08/05/18 1515:00 23:00 07:00 IntakeIntake Total 620 ml 630 ml OutputOutput Total 25 ml 25 ml BalanceBalance 595 ml 605 ml Exam PE: Gen Appearance: No Apparent Distress HEENT: Has trach Cardiovascular: Regular rate Respiratory: mechanically ventilated Abdomen: Soft Extremities: Dry NE: The patient was obtunded. Opened eyes to noxious stimuli. Did not track or follow commands. Cranial nerve examination was limited by mental status. Pupils were equal and r eactive to light. There was no afferent pupillary defect. Funduscopic examination was limited. Face was grossly symmetric, w/ weak cough reflexes. Tone was normal. Muscle bulk was normal. I did not see fasciculations. The patient minimally withdraw lowers to noxious stimulation. Coordination and gait testing was limited by mental status. Arm and leg reflexes were symmetric. Chacon's sign was absent. Plantar responses were mute. RIKI MAHAN NP Aug 05, 2018 15:43 JAMMIE AMEZCUA Aug 05, 2018 17:54
[2018-08-05] MEDS: ATORVASTATIN 40 MG TAB PO SCH (20:58)
[2018-08-05] MEDS: DOXAZOSIN 4 MG TAB PO SCH (23:05)
[2018-08-06] VITALS (31 sets, daily range): BP systolic 99–167; BP diastolic 48–79; PULSE 60–86; RESP 16–33
[2018-08-06] MEDS: INSULIN ASPART [NOVOLOG] 3 ML PEN SC SCH ×4 (01:06→13:11)
[2018-08-06] MEDS: DOCUSATE SODIUM 10 MG/ML (10ML CUP) GTB SCH (08:42)
[2018-08-06] MEDS: BACLOFEN 10 MG TAB PO SCH (08:43)
[2018-08-06] MEDS: COLLAGENASE 5 GM (UD JAR) TOP SCH (08:43)
[2018-08-06] MEDS: NIFEdipine 10 MG CAP NGT SCH ×3 (08:43→13:04)
[2018-08-06] MEDS: FINASTERIDE 5 MG TAB PO SCH (08:43)
[2018-08-06] MEDS: FAMOTIDINE 20 MG TAB PO SCH (08:43)
[2018-08-06] MEDS: ALLOPURINOL 100 MG TAB PO SCH (08:43)
[2018-08-06] MEDS: BALSAM PERU/CASTOR OIL 60 GM TUBE TOP SCH (08:44)
[2018-08-06] MEDS: HEPARIN 5,000 UNIT/1 ML VIAL SC SCH (08:50)
[2018-08-06] MEDS: HEPARIN 1000 UNITS/ML 10 ML INJ CATHETER SCH (10:36)
--- NOTE | 2018-08-06 11:22 | CONS ---
Date/Time of Note Date/Time of Note DATE: 08/06/18 TIME: 11:22 Assessment/Plan Assessment/Plan Assessment/Plan 1. Acute renal failure due to ATN from sepsis - started on HD during this admission on 07/28/18 2. Sepsis due to PNA 3. Acute Hypoxemic respiratory failure due to PNA - Intubated on ventilator 4. H/o CAD s/p previous stent placement 5. h/o Pacemaker placement 6. H/o HTN 7. H/o HL 8. H/o Chronic back pain, Prostate CA 9. Hypernatremia - now resolved 10. Hyperuricemia, on allopurinol Plan:- started on HD on 07/28/18, s/p HD todaym plan for transfer to [place] we will keep pt on MWF schedule HIV, Hepatitis panel negative s/p tracheostomy , pulmonary following will wait for pt to be more stable before considering permacath for fpc HD access will follow up Result Diagram: 08/06/18 0644 08/06/18 0644 Results 24hrs Laboratory Tests Test 08/05/18 13:23 08/05/18 17:38 08/05/18 21:03 08/06/18 00:38 Bedside Glucose 157 145 135 149 Test 08/06/18 04:17 08/06/18 06:44 08/06/18 08:40 Bedside Glucose 145 131 White Blood Count 9.0 Red Blood Count 2.55 L Hemoglobin 8.1 L Hematocrit 24.5 L Mean Corpuscular Volume 96.1 Mean Corpuscular 31.8 Hemoglobin Mean Corpuscular 33.1 Hemoglobin Concent Red Cell Distribution 14.9 H Width Platelet Count 188 Mean Platelet Volume 12.8 H Immature Granulocytes % 0.700 H Neutrophils % 74.7 Lymphocytes % 8.7 L Monocytes % 13.4 H Eosinophils % 2.3 Basophils % 0.2 Nucleated Red Blood 0.0 Cells % Immature Granulocytes # 0.060 H Neutrophils # 6.7 Lymphocytes # 0.8 Monocytes # 1.2 H Eosinophils # 0.2 Basophils # 0.0 Nucleated Red Blood 0.0 Cells # Sodium Level 133 L Potassium Level 5.4 H Chloride Level 97 Carbon Dioxide Level 21 Anion Gap 15 H Blood Urea Nitrogen 149 H Creatinine 5.40 H Est Glomerular Filtrat Rate mL/min Glucose Level 140 Calcium Level 8.0 L Consultation Date/Type/Reason Admit Date/Time Jul 18, 2018 at 16:57 Initial Consult Date 07/19/18 Type of Consult NEPHROLOGY Requesting Provider: RUBÉN BENITO MD Exam/Review of Systems Vital Signs Vitals Vital Signs Date Temp Pulse Resp B/P (MAP) Pulse Ox O2 O2 Flow FiO2 Time Delivery Rate 08/06/18 86 22 100 30 11:05 08/06/18 157/75 Mechanical 10:39 (102) Ventilator T Tube 08/06/18 97.9 08:17 Intake and Output 08/05/18 08/05/18 08/06/18 1515:00 23:00 07:00 IntakeIntake Total 620 ml 620 ml OutputOutput Total 25 ml 150 ml BalanceBalance 595 ml 470 ml Exam GENERAL: No acute distress, Comfortable, status post tracheostomy NECK: Supple. No JVD or lymphadenopathy. CARDIAC EXAM: S1, S2. No added sounds or murmurs. CHEST: clear bilaterally, No added sounds, rales or wheezes ABDOMEN: Soft, nontender. No guarding or rebound. EXTREMITIES: No cyanosis, clubbing or edema. NEUROLOGIC: Generalized weakness. No focal deficits. Medications Medications Current Medications IV Flush (NS 3 ml) 3 ml PER PROTOCOL IV ; Start 07/18/18 at 17:30 Ondansetron HCl (Zofran Inj) 4 mg Q6H PRN IV NAUSEA AND/OR VOMITING; Start 07/18/18 at 17:30 Acetaminophen (Tylenol Tab) 650 mg Q6H PRN PO PAIN LEVEL 1-3 OR FEVER Last administered on 08/04/18 05:28; Admin Dose 650 MG; Start 07/18/18 at 17:30 Atorvastatin Calcium (Lipitor) 40 mg QHS PO Last administered on 08/05/18 20:58; Admin Dose 40 MG; Start 07/18/18 at 21:00 Baclofen (Lioresal) 10 mg BID PO Last administered on 08/06/18 08:43; Admin Dose 10 MG; Start 07/18/18 at 21:00 Docusate Sodium (Colace) 100 mg BID PRN PO CONSTIPATION; Start 07/18/18 at 17:30 Doxazosin Mesylate (Cardura) 4 mg HS PO Last administered on 08/05/18 23:05; Admin Dose 4 MG; Start 07/18/18 at 21:00 Finasteride (Proscar) 5 mg DAILY PO Last administered on 08/06/18 08:43; Admin Dose 5 MG; Start 07/19/18 at 09:00 Haloperidol (Haldol) 5 mg Q2H PRN IM AGITATION Last administered on 07/19/18 02:37; Admin Dose 5 MG; Start 07/18/18 at 23:30 Allopurinol (Zyloprim) 100 mg DAILY PO Last administered on 08/06/18 08:43; Admin Dose 100 MG; Start 07/21/18 at 09:00 Docusate Sodium (Colace Liquid Cup) 100 mg BID GTB Last administered on 08/06/18 08:42; Admin Dose 100 MG; Start 07/20/18 at 21:00 Morphine Sulfate (morphine) 6 mg Q4H PRN PO PAIN LEVEL 7-10 Last administered on 08/02/18 10:01; Admin Dose 6 MG; Start 07/21/18 at 11:00 Nifedipine (Procardia) 20 mg TID NGT Last administered on 08/05/18 20:58; Admin Dose 20 MG; Start 07/23/18 at 14:30 Lorazepam (Ativan) 1 mg Q4H PRN GTB AGITATION Last administered on 07/31/18 21:25; Admin Dose 1 MG; Start 07/24/18 at 11:00 Insulin Aspart (Novolog Insulin Pen) NOVOLOG *MILD* ALGORI... Q4 SC Last administered on 08/06/18 04:23; Admin Dose 1 UNIT; Start 07/26/18 at 17:00 Miscellaneous Information 1 ea NOTE XX ; Start 07/26/18 at 14:30 Glucose (Glutose) 15 gm Q15M PRN PO DECREASED GLUCOSE; Start 07/26/18 at 14:30 Glucose (Glutose) 22.5 gm Q15M PRN PO DECREASED GLUCOSE; Start 07/26/18 at 14:30 Dextrose (D50w Syringe) 25 ml Q15M PRN IV DECREASED GLUCOSE; Start 07/26/18 at 14:30 Dextrose (D50w Syringe) 50 ml Q15M PRN IV DECREASED GLUCOSE; Start 07/26/18 at 14:30 Glucagon (Glucagen) 1 mg Q15M PRN IM DECREASED GLUCOSE; Start 12/29/18 at 14:30 Glucose (Glutose) 15 gm Q15M PRN BUCCAL DECREASED GLUCOSE; Start 07/26/18 at 14:30 Heparin Sodium (Porcine) (Heparin (1000 Units/ml)) 3,000 unit AFTER DIALYSIS CATHETER Last administered on 08/06/18at 10:36; Admin Dose 3,000 UNIT; Start 07/29/18 at 09:30 Famotidine (Pepcid) 20 mg DAILY PO Last administered on 08/06/18 08:43; Admin Dose 20 MG; Start 07/31/18 at 09:00 Heparin Sodium (Porcine) (Heparin (5000 Units/1ml)) 5,000 unit BID SC Last administered on 08/06/18 08:50; Admin Dose 5,000 UNIT; Start 08/01/18 at 09:00 Fentanyl (Sublimaze) 25 mcg Q2H PRN IV SEVERE PAIN LEVEL 7-10; Start 08/02/18 at 12:30 Collagenase (Santyl) 1 applic DAILY TOP Last administered on 08/06/18at 08:43; Admin Dose 1 APPLIC; Start 08/04/18 at 12:30 Collagenase (Santyl) 1 applic WHEN SOILED PRN TOP WHEN SOILED; Start 08/04/18 at 12:30 FELICIANO RAMIREZ MD Aug 06, 2018 11:22
--- NOTE | 2018-08-06 13:31 | CONS ---
Assessment/Plan Assessment/Plan Hospital Course 83 M who is admitted for management of acute respiratory failure. CXR revealed bilateral pneumonias.. Neurology is consulted to evaluate ams.. Of note, he remains in severe MYKE requiring HD..which is a likely contributor.. Most clinically consistent w/ an acute and severe toxic-metabolic encephalopathy.. CTH is without acute intracranial pathology. EEG is without epileptiform activity. P: Ok to defer additional neuroimaging for now Cont to limit sedating medications where possible Other medical management and supportive care per primary PT/OT/ST as able Will follow clinically Result Diagram: 08/06/18 0644 08/06/18 0644 Results 24hrs Laboratory Tests Test 08/05/18 17:38 08/05/18 21:03 08/06/18 00:38 08/06/18 04:17 Bedside Glucose 145 135 149 145 Test 08/06/18 06:44 08/06/18 08:40 08/06/18 13:02 White Blood Count 9.0 Red Blood Count 2.55 L Hemoglobin 8.1 L Hematocrit 24.5 L Mean Corpuscular Volume 96.1 Mean Corpuscular 31.8 Hemoglobin Mean Corpuscular 33.1 Hemoglobin Concent Red Cell Distribution 14.9 H Width Platelet Count 188 Mean Platelet Volume 12.8 H Immature Granulocytes % 0.700 H Neutrophils % 74.7 Lymphocytes % 8.7 L Monocytes % 13.4 H Eosinophils % 2.3 Basophils % 0.2 Nucleated Red Blood 0.0 Cells % Immature Granulocytes # 0.060 H Neutrophils # 6.7 Lymphocytes # 0.8 Monocytes # 1.2 H Eosinophils # 0.2 Basophils # 0.0 Nucleated Red Blood 0.0 Cells # Sodium Level 133 L Potassium Level 5.4 H Chloride Level 97 Carbon Dioxide Level 21 Anion Gap 15 H Blood Urea Nitrogen 149 H Creatinine 5.40 H Est Glomerular Filtrat Rate mL/min Glucose Level 140 Calcium Level 8.0 L Bedside Glucose 131 178 Consultation Date/Type/Reason Admit Date/Time Jul 18, 2018 at 16:57 Type of Consult Neurology Requesting Provider: RUBÉN BENITO MD Date/Time of Note DATE: 08/06/18 TIME: 13:30 24 HR Interval Summary Free Text/Dictation Continues telemetry monitoring. No acute events or changes in pt condition reported. Subjective hx not possible: pt non-verbal Exam Vital Signs Vitals Vital Signs Date Temp Pulse Resp B/P (MAP) Pulse Ox O2 O2 Flow FiO2 Time Delivery Rate 08/06/18 80 23 100 30 11:59 08/06/18 98.0 152/70 11:44 (97) 08/06/18 Mechanical 10:39 Ventilator T Tube Intake and Output 08/05/18 08/05/18 08/06/18 1515:00 23:00 07:00 IntakeIntake Total 620 ml 620 ml OutputOutput Total 25 ml 150 ml BalanceBalance 595 ml 470 ml Exam PE: Gen Appearance: No Apparent Distress HEENT: Has trach Cardiovascular: Regular rate Respiratory: mechanically ventilated Abdomen: Soft Extremities: Dry NE: The patient was lethargic; slightly opened eyes to voice. Did not track or follow commands. Cranial nerve examination was limited by mental status. Pupils were equal and reactive to light. There was no afferent pupillary defect. Funduscopic examination was limited. Face was grossly symmetric, w/ weak cough reflexes. Tone was normal. Muscle bulk was normal. I did not see fasciculations. The patient did not withdraw extremities to noxious stimuli. Coordination and gait testing was limited by mental status. Arm and leg reflexes were symmetric. Chacon's sign was absent. Plantar responses were mute. RIKI MAHAN NP Aug 06, 2018 13:31 JAMMIE AMEZCUA Aug 06, 2018 13:55
--- NOTE | 2018-08-06 15:14 | CONS ---
Date/Time of Note Date/Time of Note DATE: 08/06/18 TIME: 15:13 Assessment/Plan Assessment/Plan Hospital Course No fevers, copious smelly secretions per report, nad Indwelling's: Trach NG tube Owens catheter Right upper extremity PICC line, permanent pacemaker, right femoral Vinnie catheter Antimicrobials: none s/p Cefepime Microbiology: Cultures since admission had been negative Physical examination: Chronically ill-appearing elderly man who is intubated in no distress. Head atraumatic normocephalic. Sclera nonicteric. Neck is supple chest rise symmetrical breath sounds diminished bases. Heart: S1-S2. Abdomen soft bowel sounds hypoactive. Extremities with dependent edema Assessment: 1. Status post septic shock 2. Acute hypoxemic respiratory failure 3. S/p pneumonia 4. Encephalopathy, likely toxic metabolic 5. Anemia 6. Acute renal failure, started on hemodialysis Plan: Remains stable off abx, continue present care, reculture prn, f/u cxr Result Diagram: 08/06/18 0644 08/06/18 0644 Results 24hrs Laboratory Tests Test 08/05/18 17:38 08/05/18 21:03 08/06/18 00:38 08/06/18 04:17 Bedside Glucose 145 135 149 145 Test 08/06/18 06:44 08/06/18 08:40 08/06/18 13:02 White Blood Count 9.0 Red Blood Count 2.55 L Hemoglobin 8.1 L Hematocrit 24.5 L Mean Corpuscular Volume 96.1 Mean Corpuscular 31.8 Hemoglobin Mean Corpuscular 33.1 Hemoglobin Concent Red Cell Distribution 14.9 H Width Platelet Count 188 Mean Platelet Volume 12.8 H Immature Granulocytes % 0.700 H Neutrophils % 74.7 Lymphocytes % 8.7 L Monocytes % 13.4 H Eosinophils % 2.3 Basophils % 0.2 Nucleated Red Blood 0.0 Cells % Immature Granulocytes # 0.060 H Neutrophils # 6.7 Lymphocytes # 0.8 Monocytes # 1.2 H Eosinophils # 0.2 Basophils # 0.0 Nucleated Red Blood 0.0 Cells # Sodium Level 133 L Potassium Level 5.4 H Chloride Level 97 Carbon Dioxide Level 21 Anion Gap 15 H Blood Urea Nitrogen 149 H Creatinine 5.40 H Est Glomerular Filtrat Rate mL/min Glucose Level 140 Calcium Level 8.0 L Bedside Glucose 131 178 Consultation Date/Type/Reason Admit Date/Time Jul 18, 2018 at 16:57 Initial Consult Date 07/19/18 Type of Consult ID Requesting Provider: RUBÉN BENITO MD Exam/Review of Systems Vital Signs Vitals Vital Signs Date Temp Pulse Resp B/P (MAP) Pulse Ox O2 O2 Flow FiO2 Time Delivery Rate 08/06/18 114/48 15:08 (70) 08/06/18 62 13:37 08/06/18 21 100 30 13:32 08/06/18 98.0 11:44 08/06/18 Mechanical 10:39 Ventilator T Tube Intake and Output 08/05/18 08/05/18 08/06/18 1515:00 23:00 07:00 IntakeIntake Total 620 ml 620 ml OutputOutput Total 25 ml 150 ml BalanceBalance 595 ml 470 ml Medications Medications Current Medications IV Flush (NS 3 ml) 3 ml PER PROTOCOL IV ; Start 07/18/18 at 17:30 Ondansetron HCl (Zofran Inj) 4 mg Q6H PRN IV NAUSEA AND/OR VOMITING; Start 07/18/18 at 17:30 Acetaminophen (Tylenol Tab) 650 mg Q6H PRN PO PAIN LEVEL 1-3 OR FEVER Last administered on 08/04/18 05:28; Admin Dose 650 MG; Start 07/18/18 at 17:30 Atorvastatin Calcium (Lipitor) 40 mg QHS PO Last administered on 08/05/18 20:58; Admin Dose 40 MG; Start 07/18/18 at 21:00 Baclofen (Lioresal) 10 mg BID PO Last administered on 08/06/18 08:43; Admin Dose 10 MG; Start 07/18/18 at 21:00 Docusate Sodium (Colace) 100 mg BID PRN PO CONSTIPATION; Start 07/18/18 at 17:30 Doxazosin Mesylate (Cardura) 4 mg HS PO Last administered on 08/05/18 23:05; Admin Dose 4 MG; Start 07/18/18 at 21:00 Finasteride (Proscar) 5 mg DAILY PO Last administered on 08/06/18 08:43; Admin Dose 5 MG; Start 07/19/18 at 09:00 Haloperidol (Haldol) 5 mg Q2H PRN IM AGITATION Last administered on 07/19/18at 02:37; Admin Dose 5 MG; Start 07/18/18 at 23:30 Allopurinol (Zyloprim) 100 mg DAILY PO Last administered on 08/06/18 08:43; Admin Dose 100 MG; Start 07/21/18 at 09:00 Docusate Sodium (Colace Liquid Cup) 100 mg BID GTB Last administered on 08/06/18 08:42; Admin Dose 100 MG; Start 07/20/18 at 21:00 Morphine Sulfate (morphine) 6 mg Q4H PRN PO PAIN LEVEL 7-10 Last administered on 08/02/18 10:01; Admin Dose 6 MG; Start 07/21/18 at 11:00 Nifedipine (Procardia) 20 mg TID NGT Last administered on 08/06/18 13:04; Admin Dose 20 MG; Start 07/23/18 at 14:30 Lorazepam (Ativan) 1 mg Q4H PRN GTB AGITATION Last administered on 07/31/18 21:25; Admin Dose 1 MG; Start 07/24/18 at 11:00 Insulin Aspart (Novolog Insulin Pen) NOVOLOG *MILD* ALGORI... Q4 SC Last administered on 08/06/18 13:11; Admin Dose 1 UNIT; Start 07/26/18 at 17:00 Miscellaneous Information 1 ea NOTE XX ; Start 07/26/18 at 14:30 Glucose (Glutose) 15 gm Q15M PRN PO DECREASED GLUCOSE; Start 07/26/18 at 14:30 Glucose (Glutose) 22.5 gm Q15M PRN PO DECREASED GLUCOSE; Start 07/26/18 at 14:30 Dextrose (D50w Syringe) 25 ml Q15M PRN IV DECREASED GLUCOSE; Start 07/26/18 at 14:30 Dextrose (D50w Syringe) 50 ml Q15M PRN IV DECREASED GLUCOSE; Start 07/26/18 at 14:30 Glucagon (Glucagen) 1 mg Q15M PRN IM DECREASED GLUCOSE; Start 07/26/18 at 14:30 Glucose (Glutose) 15 gm Q15M PRN BUCCAL DECREASED GLUCOSE; Start 07/26/18 at 14:30 Heparin Sodium (Porcine) (Heparin (1000 Units/ml)) 3,000 unit AFTER DIALYSIS CATHETER Last administered on 08/06/18 10:36; Admin Dose 3,000 UNIT; Start 07/29/18 at 09:30 Famotidine (Pepcid) 20 mg DAILY PO Last administered on 08/06/18at 08:43; Admin Dose 20 MG; Start 07/31/18 at 09:00 Heparin Sodium (Porcine) (Heparin (5000 Units/1ml)) 5,000 unit BID SC Last administered on 08/06/18at 08:50; Admin Dose 5,000 UNIT; Start 08/01/18 at 09:00 Fentanyl (Sublimaze) 25 mcg Q2H PRN IV SEVERE PAIN LEVEL 7-10; Start 08/02/18 at 12:30 Collagenase (Santyl) 1 applic DAILY TOP Last administered on 08/06/18at 08:43; Admin Dose 1 APPLIC; Start 08/04/18 at 12:30 Collagenase (Santyl) 1 applic WHEN SOILED PRN TOP WHEN SOILED; Start 08/04/18 at 12:30 NATALIA CARTAGENA NP Aug 06, 2018 15:14
--- NOTE | 2018-08-06 15:39 | CONS ---
Date/Time of Note Date/Time of Note DATE: 08/06/18 TIME: 15:36 Assessment/Plan Assessment/Plan Hospital Course IMPRESSION: 1. Hypertension, uncontrolled. 2. History of permanent pacemaker. No signs of dysfunction at this time, primarily ventricular pacing. 3. History of percutaneous transluminal coronary angioplasty and stent placement. 4. Respiratory failure, status post intubation. 5. End-stage renal disease on hemodialysis. 6. Anemia. 7. Leukocytosis with a history of benign prostatic hypertrophy. 8. Pneumonia, bilateral. 9. Dementia. 10. Encephalopathy. REcc: -ICU -Continue nifedipine with slight increase and follow BP closely -Continue statin -not on asa due to anemia -trend cardiac enzymes -continue sq heparin -HD for volume removal Result Diagram: 08/06/18 0644 08/06/18 0644 Results 24hrs Laboratory Tests Test 08/05/18 17:38 08/05/18 21:03 08/06/18 00:38 08/06/18 04:17 Bedside Glucose 145 135 149 145 Test 08/06/18 06:44 08/06/18 08:40 08/06/18 13:02 White Blood Count 9.0 Red Blood Count 2.55 L Hemoglobin 8.1 L Hematocrit 24.5 L Mean Corpuscular Volume 96.1 Mean Corpuscular 31.8 Hemoglobin Mean Corpuscular 33.1 Hemoglobin Concent Red Cell Distribution 14.9 H Width Platelet Count 188 Mean Platelet Volume 12.8 H Immature Granulocytes % 0.700 H Neutrophils % 74.7 Lymphocytes % 8.7 L Monocytes % 13.4 H Eosinophils % 2.3 Basophils % 0.2 Nucleated Red Blood 0.0 Cells % Immature Granulocytes # 0.060 H Neutrophils # 6.7 Lymphocytes # 0.8 Monocytes # 1.2 H Eosinophils # 0.2 Basophils # 0.0 Nucleated Red Blood 0.0 Cells # Sodium Level 133 L Potassium Level 5.4 H Chloride Level 97 Carbon Dioxide Level 21 Anion Gap 15 H Blood Urea Nitrogen 149 H Creatinine 5.40 H Est Glomerular Filtrat Rate mL/min Glucose Level 140 Calcium Level 8.0 L Bedside Glucose 131 178 Consultation Date/Type/Reason Admit Date/Time Jul 18, 2018 at 16:57 Initial Consult Date 07/19/18 Type of Consult cardiology Reason for Consultation PPM Requesting Provider: RUBÉN BENITO MD Exam/Review of Systems Vital Signs Vitals Vital Signs Date Temp Pulse Resp B/P (MAP) Pulse Ox O2 O2 Flow FiO2 Time Delivery Rate 08/06/18 114/48 15:08 (70) 08/06/18 62 13:37 08/06/18 21 100 30 13:32 08/06/18 98.0 11:44 08/06/18 Mechanical 10:39 Ventilator T Tube Intake and Output 08/05/18 08/05/18 08/06/18 1414:59 22:59 06:59 IntakeIntake Total 620 ml 620 ml OutputOutput Total 25 ml 150 ml BalanceBalance 595 ml 470 ml Exam Review of Systems: CONSTITUTIONAL: No fevers, chills. PULMONARY: No sob CARDIOVASCULAR: No chest pain/palpitations GASTROINTESTINAL: No nausea/vomiting. GENITOURINARY: No hematuria/dysuria. MUSCULOSKELETAL: No myagias/arthalgias. PSYCHIATRIC: The patient denies depression. NEUROLOGIC: No weakness Constitutional: alert Psych: no complaints Head: normocephalic ENMT: mucosa pink and moist Neck: supple, jvd (9 cm water) Respiratory: diminished breath sounds Cardiovascular: regular rate and rhythm Gastrointestinal: soft, non-tender Musculoskeletal: muscle tone (normal) Extremities: edema (trace) Neurological: confused Medications Medications Current Medications IV Flush (NS 3 ml) 3 ml PER PROTOCOL IV ; Start 07/18/18 at 17:30 Ondansetron HCl (Zofran Inj) 4 mg Q6H PRN IV NAUSEA AND/OR VOMITING; Start 07/18/18 at 17:30 Acetaminophen (Tylenol Tab) 650 mg Q6H PRN PO PAIN LEVEL 1-3 OR FEVER Last administered on 08/04/18at 05:28; Admin Dose 650 MG; Start 07/18/18 at 17:30 Atorvastatin Calcium (Lipitor) 40 mg QHS PO Last administered on 08/05/18at 20:58; Admin Dose 40 MG; Start 07/18/18 at 21:00 Baclofen (Lioresal) 10 mg BID PO Last administered on 08/06/18at 08:43; Admin Dose 10 MG; Start 07/18/18 at 21:00 Docusate Sodium (Colace) 100 mg BID PRN PO CONSTIPATION; Start 07/18/18 at 17:30 Doxazosin Mesylate (Cardura) 4 mg HS PO Last administered on 08/05/18 23:05; Admin Dose 4 MG; Start 07/18/18 at 21:00 Finasteride (Proscar) 5 mg DAILY PO Last administered on 08/06/18 08:43; Admin Dose 5 MG; Start 07/19/18 at 09:00 Haloperidol (Haldol) 5 mg Q2H PRN IM AGITATION Last administered on 07/19/18at 02:37; Admin Dose 5 MG; Start 07/18/18 at 23:30 Allopurinol (Zyloprim) 100 mg DAILY PO Last administered on 08/06/18 08:43; Admin Dose 100 MG; Start 07/21/18 at 09:00 Docusate Sodium (Colace Liquid Cup) 100 mg BID GTB Last administered on 08/06/18 08:42; Admin Dose 100 MG; Start 07/20/18 at 21:00 Morphine Sulfate (morphine) 6 mg Q4H PRN PO PAIN LEVEL 7-10 Last administered on 08/02/18 10:01; Admin Dose 6 MG; Start 07/21/18 at 11:00 Nifedipine (Procardia) 20 mg TID NGT Last administered on 08/06/18 13:04; Admin Dose 20 MG; Start 07/23/18 at 14:30 Lorazepam (Ativan) 1 mg Q4H PRN GTB AGITATION Last administered on 07/31/18 21:25; Admin Dose 1 MG; Start 07/24/18 at 11:00 Insulin Aspart (Novolog Insulin Pen) NOVOLOG *MILD* ALGORI... Q4 SC Last administered on 08/06/18 13:11; Admin Dose 1 UNIT; Start 07/26/18 at 17:00 Miscellaneous Information 1 ea NOTE XX ; Start 07/26/18 at 14:30 Glucose (Glutose) 15 gm Q15M PRN PO DECREASED GLUCOSE; Start 07/26/18 at 14:30 Glucose (Glutose) 22.5 gm Q15M PRN PO DECREASED GLUCOSE; Start 07/26/18 at 14:30 Dextrose (D50w Syringe) 25 ml Q15M PRN IV DECREASED GLUCOSE; Start 07/26/18 at 14:30 Dextrose (D50w Syringe) 50 ml Q15M PRN IV DECREASED GLUCOSE; Start 07/26/18 at 14:30 Glucagon (Glucagen) 1 mg Q15M PRN IM DECREASED GLUCOSE; Start 07/26/18 at 14:30 Glucose (Glutose) 15 gm Q15M PRN BUCCAL DECREASED GLUCOSE; Start 07/26/18 at 14:30 Heparin Sodium (Porcine) (Heparin (1000 Units/ml)) 3,000 unit AFTER DIALYSIS CATHETER Last administered on 08/06/18at 10:36; Admin Dose 3,000 UNIT; Start 07/29/18 at 09:30 Famotidine (Pepcid) 20 mg DAILY PO Last administered on 08/06/18 08:43; Admin Dose 20 MG; Start 07/31/18 at 09:00 Heparin Sodium (Porcine) (Heparin (5000 Units/1ml)) 5,000 unit BID SC Last administered on 08/06/18 08:50; Admin Dose 5,000 UNIT; Start 08/01/18 at 09:00 Fentanyl (Sublimaze) 25 mcg Q2H PRN IV SEVERE PAIN LEVEL 7-10; Start 08/02/18 at 12:30 Collagenase (Santyl) 1 applic DAILY TOP Last administered on 08/06/18at 08:43; Admin Dose 1 APPLIC; Start 08/04/18 at 12:30 Collagenase (Santyl) 1 applic WHEN SOILED PRN TOP WHEN SOILED; Start 08/04/18 at 12:30 PETRA DELA CRUZ Aug 06, 2018 15:39
--- NOTE | 2018-08-06 16:14 | CONS ---
Date/Time of Note Date/Time of Note DATE: 08/06/18 TIME: 16:14 Consult Date/Type/Reason Admit Date/Time Jul 18, 2018 at 16:57 Initial Consult Date 07/19/18 Type of Consultation: Pulm/CCM Requesting Provider: RUBÉN BENITO MD Subjective No new events. Objective Vital Signs Date Temp Pulse Resp B/P (MAP) Pulse Ox O2 O2 Flow FiO2 Time Delivery Rate 08/06/18 98.1 60 16 136/59 100 15:53 (84) 08/06/18 30 15:30 08/06/18 Mechanical 10:39 Ventilator T Tube Intake and Output 08/05/18 08/05/18 08/06/18 1515:00 23:00 07:00 IntakeIntake Total 620 ml 620 ml OutputOutput Total 25 ml 150 ml BalanceBalance 595 ml 470 ml Exam GENERAL: Elderly gentleman comfortable post tracheostomy VITAL SIGNS: per chart NECK: Supple. No JVD or lymphadenopathy. CARDIAC EXAM: S1, S2. No added sounds or murmurs. CHEST: clear bilaterally, No added sounds, rales or wheezes ABDOMEN: Soft, nontender. No guarding or rebound. EXTREMITIES: No cyanosis, clubbing or edema. NEUROLOGIC: Generalized weakness. No focal deficits. Results/Medications Result Diagram: 08/06/18 0644 08/06/18 0644 Results 24 hrs Laboratory Tests Test 08/05/18 17:38 08/05/18 21:03 08/06/18 00:38 08/06/18 04:17 Bedside Glucose 145 135 149 145 Test 08/06/18 06:44 08/06/18 08:40 08/06/18 13:02 White Blood Count 9.0 Red Blood Count 2.55 L Hemoglobin 8.1 L Hematocrit 24.5 L Mean Corpuscular Volume 96.1 Mean Corpuscular 31.8 Hemoglobin Mean Corpuscular 33.1 Hemoglobin Concent Red Cell Distribution 14.9 H Width Platelet Count 188 Mean Platelet Volume 12.8 H Immature Granulocytes % 0.700 H Neutrophils % 74.7 Lymphocytes % 8.7 L Monocytes % 13.4 H Eosinophils % 2.3 Basophils % 0.2 Nucleated Red Blood 0.0 Cells % Immature Granulocytes # 0.060 H Neutrophils # 6.7 Lymphocytes # 0.8 Monocytes # 1.2 H Eosinophils # 0.2 Basophils # 0.0 Nucleated Red Blood 0.0 Cells # Sodium Level 133 L Potassium Level 5.4 H Chloride Level 97 Carbon Dioxide Level 21 Anion Gap 15 H Blood Urea Nitrogen 149 H Creatinine 5.40 H Est Glomerular Filtrat Rate mL/min Glucose Level 140 Calcium Level 8.0 L Bedside Glucose 131 178 Medications Current Medications IV Flush (NS 3 ml) 3 ml PER PROTOCOL IV ; Start 07/18/18 at 17:30 Ondansetron HCl (Zofran Inj) 4 mg Q6H PRN IV NAUSEA AND/OR VOMITING; Start 07/18/18 at 17:30 Acetaminophen (Tylenol Tab) 650 mg Q6H PRN PO PAIN LEVEL 1-3 OR FEVER Last administered on 08/04/18 05:28; Admin Dose 650 MG; Start 07/18/18 at 17:30 Atorvastatin Calcium (Lipitor) 40 mg QHS PO Last administered on 08/05/18 20:58; Admin Dose 40 MG; Start 07/18/18 at 21:00 Baclofen (Lioresal) 10 mg BID PO Last administered on 08/06/18 08:43; Admin Dose 10 MG; Start 07/18/18 at 21:00 Docusate Sodium (Colace) 100 mg BID PRN PO CONSTIPATION; Start 07/18/18 at 17:30 Doxazosin Mesylate (Cardura) 4 mg HS PO Last administered on 08/05/18 23:05; Admin Dose 4 MG; Start 07/18/18 at 21:00 Finasteride (Proscar) 5 mg DAILY PO Last administered on 08/06/18 08:43; Admin Dose 5 MG; Start 07/19/18 at 09:00 Haloperidol (Haldol) 5 mg Q2H PRN IM AGITATION Last administered on 07/19/18 02:37; Admin Dose 5 MG; Start 07/18/18 at 23:30 Allopurinol (Zyloprim) 100 mg DAILY PO Last administered on 08/06/18 08:43; Adm in Dose 100 MG; Start 07/21/18 at 09:00 Docusate Sodium (Colace Liquid Cup) 100 mg BID GTB Last administered on 08/06/18 08:42; Admin Dose 100 MG; Start 07/20/18 at 21:00 Morphine Sulfate (morphine) 6 mg Q4H PRN PO PAIN LEVEL 7-10 Last administered on 08/02/18 10:01; Admin Dose 6 MG; Start 07/21/18 at 11:00 Lorazepam (Ativan) 1 mg Q4H PRN GTB AGITATION Last administered on 07/31/18 21:25; Admin Dose 1 MG; Start 07/24/18 at 11:00 Insulin Aspart (Novolog Insulin Pen) NOVOLOG *MILD* ALGORI... Q4 SC Last administered on 08/06/18 13:11; Admin Dose 1 UNIT; Start 07/26/18 at 17:00 Miscellaneous Information 1 ea NOTE XX ; Start 07/26/18 at 14:30 Glucose (Glutose) 15 gm Q15M PRN PO DECREASED GLUCOSE; Start 07/26/18 at 14:30 Glucose (Glutose) 22.5 gm Q15M PRN PO DECREASED GLUCOSE; Start 07/26/18 at 14:30 Dextrose (D50w Syringe) 25 ml Q15M PRN IV DECREASED GLUCOSE; Start 07/26/18 at 14:30 Dextrose (D50w Syringe) 50 ml Q15M PRN IV DECREASED GLUCOSE; Start 07/26/18 at 14:30 Glucagon (Glucagen) 1 mg Q15M PRN IM DECREASED GLUCOSE; Start 07/26/18 at 14:30 Glucose (Glutose) 15 gm Q15M PRN BUCCAL DECREASED GLUCOSE; Start 07/26/18 at 14:30 Heparin Sodium (Porcine) (Heparin (1000 Units/ml)) 3,000 unit AFTER DIALYSIS CATHETER Last administered on 08/06/18 10:36; Admin Dose 3,000 UNIT; Start 07/29/18 at 09:30 Famotidine (Pepcid) 20 mg DAILY PO Last administered on 08/06/18 08:43; Admin Dose 20 MG; Start 07/31/18 at 09:00 Heparin Sodium (Porcine) (Heparin (5000 Units/1ml)) 5,000 unit BID SC Last administered on 08/06/18 08:50; Admin Dose 5,000 UNIT; Start 08/01/18 at 09:00 Fentanyl (Sublimaze) 25 mcg Q2H PRN IV SEVERE PAIN LEVEL 7-10; Start 08/02/18 at 12:30 Collagenase (Santyl) 1 applic DAILY TOP Last administered on 1/9/19at 08:43; Admin Dose 1 APPLIC; Start 08/04/18 at 12:30 Collagenase (Santyl) 1 applic WHEN SOILED PRN TOP WHEN SOILED; Start 08/04/18 at 12:30 Nifedipine (Procardia) 30 mg TID NGT ; Start 08/06/18 at 21:00 Assessment/Plan Chief Complaint/Hosp Course IMP: 1. Acute hypoxemic respiratory failure 2/2 multifocal pneumonia; cannot exclude co-existing bland hemorrhage/volume overload--now failure to wean 2. Encephalopathy toxic metabolic 3. Anemia 4. MYKE--FeUrea c/w intrinsic renal cause 5. Dysphagia 6. Anemia RECS: 1. Vent support 2. HD/UF as per Renal 3. Avoid sedatives; 4. TF/Free H20 5. GI/VTE prophylaxis 6. Palliative Consult [facility] transfer. SPENSER RICO MD, [facility] Aug 06, 2018 16:14
[2018-08-06] MEDS ORDERED: NIFEdipine 10 MG CAP NGT SCH (21:00)
[2018-08-13] MEDS ORDERED: ACET-2047 NGT (09:32)
[2018-08-13] MEDS ORDERED: NIFE10CA NGT (09:37)
[2018-08-13] MEDS ORDERED: ALLO100T GTB (09:38)
[2018-08-13] MEDS ORDERED: BACL10TA NGT (09:39)
[2018-08-13] MEDS ORDERED: SAN30GM TOP (09:54)
[2018-08-13] MEDS ORDERED: BALS60OI TOP (09:54)
[2018-08-13] MEDS ORDERED: DOCU50LI23 GTB (09:55)
[2018-08-13] MEDS ORDERED: EPOE3000 SC (09:56)
[2018-08-13] MEDS ORDERED: FAMO20TA18 NGT (09:57)
[2018-08-13] MEDS ORDERED: FENT50AM IV* (09:58)
[2018-08-13] MEDS ORDERED: HALO5AMP2 IM* (10:00)
[2018-08-13] MEDS ORDERED: [UNRECOGNIZED DRUG - OTHER] IV (10:04)
[2018-08-13] MEDS ORDERED: LORA1TAB NGT (10:05)
[2018-08-13] MEDS ORDERED: MERO500V2 IVPB (10:07)
[2018-08-13] MEDS ORDERED: MORP10SO NGT (10:08)
[2018-08-13] MEDS ORDERED: NYST1000 PO (10:11)
[2018-08-13] MEDS ORDERED: NOVO3I SC (10:54)
--- NOTE | 2018-08-17 21:49 | DS ---
Date/Time of Note Date/Time of Note DATE: 08/17/18 TIME: 21:47 Discharge Summary Admission/Discharge Info Admit Date/Time Jul 18, 2018 at 16:57 Discharge Date/Time Aug 06, 2018 at 16:41 Patient Condition: Stable Hx of Present Illness Patient with history of hypertension and coronary artery disease was sent from his primary physician to the emergency with shortness of breath. Patient was found to have bilateral pneumonia and respiratory distress. Patient was initially placed on bipap and then he decompensated and had to be intubated later on. Patient is admitted for further treatment of pneumonia. Hospital Course Pt d/renu to [place] -Acute hypoxemic respiratory failure, ventilatory support, Dr. Mendoza is following in pulmonology consultation. -S/p tracheostomy on 08/02/[address] Mejias, ENT. -Possible pneumonia, continue antibiotics. Dr. Rebolledo is asked to see patient in infection disease consultation. -Acute renal failure failure, started on hemodialysis. Dr. Mari is following and nephrology consultation -Encephalopathy. Dr. Herndon is following in neurology consultation. -Anemia, stool for OB, transfused as needed -Coronary artery disease history of stent placement. Dr. Lassiter is following in cardiology consultation. -PPM -History of prostate CA Plan of care discussed with Dr. Brown. Home Meds Reported Medications Insulin Aspart* (Novolog Insulin Pen*) 100 Unit/Ml Soln, 0 SC .SLIDING SCALE AC, EA SLIDING SCALE 0-120 = 0 UNITS 121-150 = 0 UNITS 151-200 = 1 UNITS 201-250 = 2 UNITS 251-300 = 3 UNITS 301-350 = 4 UNITS 351-400 = 5 UNITS CALL PROVIDER IF OVER 400 AND GIVE 6 UNITS 08/13/18 Nystatin (Nystatin) 100,000 Unit/1 Ml Oral.susp, 10 ML PO TID, #60 ML 08/13/18 Morphine Sulfate* (Morphine* Liq) 10 Mg/5 Ml Solution, 6 MG NGT Q4H PRN for PAIN, ML 08/13/18 Meropenem (MEROPENEM) 500 Mg Vial, 500 MG IVPB Q12, VIAL 08/13/18 Lorazepam* (Lorazepam*) 1 Mg Tablet, 1 MG NGT Q4 PRN for ANXIETY, #60 TAB 08/13/18 Hydralazine Hcl* (Apresoline* Pediatric IV Syringe) 1 Mg/Ml Soln, 20 MG IV Q4 PRN for ELEVATED BLOOD PRESSURE, EA INFUSE OVER 3-5 MIN MAX INFUSION 5MG/MIN CHECK BP UNTIL STABLE 08/13/18 Haloperidol Lactate (HALOPERIDOL) 5 Mg/1 Ml Ampul, 5 MG IM* Q2HWA PRN for PRN 08/13/18 Fentanyl Citrate/Pf (Sublimaze) 50 Mcg/1 Ml Ampul, 25 MCG IV* Q2HWA PRN for PAIN, AMP 08/13/18 Famotidine* (Famotidine*) 20 Mg Tablet, 20 MG NGT DAILY, #30 TAB 08/13/18 Epoetin genesis* (Epogen*) 3,000 Unit/1 Ml Vial, 6000 UNITS SC [place]RI, VIAL 08/13/18 Docusate Sodium* (Docusate Sodium* Liq) 50 Mg/5 Ml Liquid, 100 MG NGT BID, ML 08/13/18 Collagenase* (Santyl*) 30 Gm Oint..gm., 1 APPLIC TOP BID PRN for PRN, #1 TUB 08/13/18 Balsam John/[place] Oil (Venelex Ointment) 60 Gm Oint..gm., 1 APPLIC TOP NEEDED PRN for PRN, #1 TUB 08/13/18 Baclofen* (Baclofen*) 10 Mg Tablet, 10 MG NGT BID, TAB 08/13/18 Allopurinol* (Allopurinol*) 100 Mg Tablet, 100 MG GTB DAILY, TAB 08/13/18 Nifedipine* (Procardia*) 10 Mg Capsule, 30 MG NGT Q8, CAP HOLD IF SBP <115 08/13/18 Acetaminophen* (Acetaminophen*) 650 Mg Tablet, 650 MG NGT Q6H PRN for PAIN AND OR ELEVATED TEMP, #30 TAB 08/13/18 Doxazosin Mesylate* (Doxazosin Mesylate*) 4 Mg Tablet, 4 MG NGT HS, TAB 07/18/18 Finasteride* (Finasteride*) 5 Mg Tablet, 5 MG NGT DAILY, TAB 07/18/18 Hydrochlorothiazide* (Hydrochlorothiazide*) 12.5 Mg Tablet, 12.5 MG NGT DAILY, #30 TAB 07/18/18 Pantoprazole* (Protonix*) 40 Mg Tablet.dr, 40 MG NGT DAILY, TAB 02/13/18 Atorvastatin* (Atorvastatin*) 40 Mg Tablet, 40 MG NGT QHS, #30 TAB 02/13/18 Discontinued Reported Medications Pregabalin* (Lyrica*) 50 Mg Capsule, 50 MG PO DAILY, CAP 07/18/18 Baclofen* (Baclofen*) 10 Mg Tablet, 10 MG PO BID, TAB 07/18/18 Docusate Sodium* (Colace*) 100 Mg Capsule, 100 MG PO BID, #60 CAP 07/18/18 Donepezil* (Donepezil*) 5 Mg Tablet, 5 MG PO DAILY, #30 TAB 07/18/18 Fluticasone Propionate* (Fluticasone Propionate* Nasal) 50 Mcg/[place] - 16 Gm [place].susp, 1 SPRAY NASAL DAILY, #1 BOTTLE TO EACH NOSTRIL 07/18/18 Docusate Sodium* (Doc-Q-Lace*) 100 Mg Capsule, 100 MG PO BID PRN for CONSTIPATION, CAP 02/13/18 Nifedipine* (Afeditab CR*) 30 Mg Tablet.sa, 30 MG PO BID, #30 TAB.SA 02/13/18 Primary Care Provider Ras Brown MD Time spent on discharge: > 30 minutes RADHA FISHER Aug 17, 2018 21:49
[2018-08-28] MEDS ORDERED: ACET325S NGT (13:54)
[2018-08-28] MEDS ORDERED: ALBU2.5V3 NEB (13:55)
[2018-08-28] MEDS ORDERED: EPOE40002 SC (14:01)
[2018-08-28] MEDS ORDERED: GUAI-637 GTB (14:03)
[2018-08-28] MEDS ORDERED: LANS30CA GTB (14:04)
[2018-08-28] MEDS ORDERED: PRO20 PO (14:07)
[2018-08-28] MEDS ORDERED: ONDA4SOL IV* (14:10)
== END 2018-08-06 16:41 | disposition short-term general hospital (02) | DRG 4 ==
LOC: E/R 14:26 → ICU 16:57 → EDBEDREQSVC 18:37 → TEL 08-03 17:59
PROVIDERS: ADMIT Internal Medicine; ATTEND Internal Medicine
PROC: 5A1955Z Respiratory Ventilation, Greater than 96 Consecutive Hours (ICD-10-PCS; 2018-07-19)
PROC: 0BH17EZ Insertion of Endotracheal Airway into Trachea, Via Natural or Artificial Opening (ICD-10-PCS; 2018-07-19)
PROC: 02HV33Z Insertion of Infusion Device into Superior Vena Cava, Percutaneous Approach (ICD-10-PCS; 2018-07-20)
PROC: B548ZZA Ultrasonography of Superior Vena Cava, Guidance (ICD-10-PCS; 2018-07-20)
PROC: 30233N1 Transfusion of Nonautologous Red Blood Cells into Peripheral Vein, Percutaneous Approach (ICD-10-PCS; 2018-07-21)
PROC: 5A1D70Z Performance of Urinary Filtration, Intermittent, Less than 6 Hours Per Day (ICD-10-PCS; 2018-07-28)
PROC: 0B110F4 Bypass Trachea to Cutaneous with Tracheostomy Device, Open Approach (ICD-10-PCS; principal; 2018-08-02 16:00)
DX: A41.9 Sepsis, unspecified organism (principal); J18.9 Pneumonia, unspecified organism; J96.01 Acute respiratory failure with hypoxia; N17.0 Acute kidney failure with tubular necrosis; G92 Toxic encephalopathy; R65.21 Severe sepsis with septic shock; I50.31 Acute diastolic (congestive) heart failure; N18.6 End stage renal disease; E87.2 Acidosis; E87.0 Hyperosmolality and hypernatremia; N39.0 Urinary tract infection, site not specified; I13.2 Hypertensive heart and chronic kidney disease with heart failure and with stage 5 chronic kidney disease, or end stage renal disease; N40.0 Benign prostatic hyperplasia without lower urinary tract symptoms; I25.10 Atherosclerotic heart disease of native coronary artery without angina pectoris; Z95.5 Presence of coronary angioplasty implant and graft; Z95.0 Presence of cardiac pacemaker; G89.29 Other chronic pain; M54.9 Dorsalgia, unspecified; D64.9 Anemia, unspecified; D69.6 Thrombocytopenia, unspecified; Z85.46 Personal history of malignant neoplasm of prostate; E87.5 Hyperkalemia; R13.10 Dysphagia, unspecified; I25.2 Old myocardial infarction; F03.90 Unspecified dementia, unspecified severity, without behavioral disturbance, psychotic disturbance, mood disturbance, and anxiety; E79.0 Hyperuricemia without signs of inflammatory arthritis and tophaceous disease; G20 Parkinson's disease; F02.80 Dementia in other diseases classified elsewhere, unspecified severity, without behavioral disturbance, psychotic disturbance, mood disturbance, and anxiety; I48.0 Paroxysmal atrial fibrillation; B96.20 Unspecified Escherichia coli [E. coli] as the cause of diseases classified elsewhere
CPT/HCPCS: 31500; 36415; 36430; 36569; 36600; 70450; 71045; 76937; 80048; 80053; 80202; 81003; 82140; 82270; 82540; 82550; 82565; 82570; 82803; 82962; 83036; 83605; 83735; 83880; 84100; 84155; 84300; 84484; 84520; 84560; 85014; 85018; 85025; 85610; 85730; 86703; 86704; 86709; 86803; 86850; 86900; 86901; 86920; 87040; 87070; 87081; 87086; 87340; 87400; 89190; 89220; 90935; 93005; 93306; 93970; 94002; 94003; 94660; 94770; 96365; 96375; J0692; J1630; J1644; J1650; J1815; J1940; J1956; J2060; J2150; J2250; J3010; J3370; J7030; J7040; J7050; J7070; P9011; P9016; P9047

== ENCOUNTER 2018-08-13 11:48 | Day surgery (SDC) | payer MEDICARE, OTHER ==
[2018-08-12 18:20] VITALS: Ht 165.1 cm; Wt 56.7 kg
[~2018-08-13] VITALS: Ht 165.1 cm; Wt 56.7 kg
[2018-08-13] VITALS (8 sets, daily range): BP systolic 107–115; BP diastolic 59–63; PULSE 60; RESP 16–20
[~2018-08-13 11:48] MED LIST changes: +ACET-2047 NGT; +ALLO100T GTB; +BACL10TA NGT; +BACL10TA PO; +BALS60OI TOP; -BRIN8DRO BOTH EYES; -CLOP75TA27 PO; -DICL100G37 TOP; +DOCU-144 PO; +DOCU50LI23 GTB; +DONE5TAB7 PO; -DORZ10DR6 BOTH EYES; +DOXA4TAB3 NGT; -DOXA4TAB3 PO; +EPOE3000 SC; +FAMO20TA18 NGT; +FENT50AM IV*; +FINA5TAB4 GTB; +FLUT16SP17 NASAL; +HALO5AMP2 IM*; +HYDR12.58 NGT; +LORA1TAB NGT; +MERO500V2 IVPB; +MORP10SO NGT; +NIFE10CA NGT; +NOVO3I SC; +NYST1000 PO; -OMEG1CAP2 PO; +PREG50CA PO; +SAN30GM TOP; +[UNRECOGNIZED DRUG - OTHER] IV
[2018-08-13] MEDS ORDERED: CEFAZOLIN 1 GM INJ ONE (13:39)
[2018-08-13] MEDS ORDERED: FENTAnyl 50 MCG/ML VIAL ONE (13:41)
--- NOTE | 2018-08-13 13:55 | PREAC ---
Date/Time of Note Date/Time of Note DATE: 08/13/18 TIME: 13:48 Anesthesia Eval and Record Evaluation Time Pre-Procedure Interview DATE: 08/13/18 TIME: 13:48 Age 83 Sex male NPO: 8 hrs Preoperative diagnosis Dysphagia Planned procedure EGD and PEG tube placement Past Medical History Past Medical History: Includes Cardio: HTN, Dyslipidemia Endo: Diabetes Surgery & Anesthesia Issues No known issue Meds Anticoagulation: No Beta Brit within 24 hr: No Reason Beta Brit not given: Pt. not on B-Brit Reported Medications Insulin Aspart* (Novolog Insulin Pen*) 100 Unit/Ml Soln, 0 SC .SLIDING SCALE AC, EA SLIDING SCALE 0-120 = 0 UNITS 121-150 = 0 UNITS 151-200 = 1 UNITS 201-250 = 2 UNITS 251-300 = 3 UNITS 301-350 = 4 UNITS 351-400 = 5 UNITS CALL PROVIDER IF OVER 400 AND GIVE 6 UNITS 08/13/18 Nystatin (Nystatin) 100,000 Unit/1 Ml Oral.susp, 10 ML PO TID, #60 ML 08/13/18 Morphine Sulfate* (Morphine* Liq) 10 Mg/5 Ml Solution, 6 MG NGT Q4H PRN for PAIN, ML 08/13/18 Meropenem (MEROPENEM) 500 Mg Vial, 500 MG IVPB Q12, VIAL 08/13/18 Lorazepam* (Lorazepam*) 1 Mg Tablet, 1 MG NGT Q4 PRN for ANXIETY, #60 TAB 08/13/18 Hydralazine Hcl* (Apresoline* Pediatric IV Syringe) 1 Mg/Ml Soln, 20 MG IV Q4 PRN for ELEVATED BLOOD PRESSURE, EA INFUSE OVER 3-5 MIN MAX INFUSION 5MG/MIN CHECK BP UNTIL STABLE 08/13/18 Haloperidol Lactate (HALOPERIDOL) 5 Mg/1 Ml Ampul, 5 MG IM* Q2HWA PRN for PRN 08/13/18 Fentanyl Citrate/Pf (Sublimaze) 50 Mcg/1 Ml Ampul, 25 MCG IV* Q2HWA PRN for PAIN, AMP 08/13/18 Famotidine* (Famotidine*) 20 Mg Tablet, 20 MG NGT DAILY, #30 TAB 08/13/18 Epoetin genesis* (Epogen*) 3,000 Unit/1 Ml Vial, 6000 UNITS SC [place], VIAL 08/13/18 Docusate Sodium* (Docusate Sodium* Liq) 50 Mg/5 Ml Liquid, 100 MG NGT BID, ML 08/13/18 Collagenase* (Santyl*) 30 Gm Oint..gm., 1 APPLIC TOP BID PRN for PRN, #1 TUB 08/13/18 Balsam John/[place] Oil (Venelex Ointment) 60 Gm Oint..gm., 1 APPLIC TOP NEEDED PRN for PRN, #1 TUB 08/13/18 Baclofen* (Baclofen*) 10 Mg Tablet, 10 MG NGT BID, TAB 08/13/18 Allopurinol* (Allopurinol*) 100 Mg Tablet, 100 MG GTB DAILY, TAB 08/13/18 Nifedipine* (Procardia*) 10 Mg Capsule, 30 MG NGT Q8, CAP HOLD IF SBP <115 08/13/18 Acetaminophen* (Acetaminophen*) 650 Mg Tablet, 650 MG NGT Q6H PRN for PAIN AND OR ELEVATED TEMP, #30 TAB 08/13/18 Doxazosin Mesylate* (Doxazosin Mesylate*) 4 Mg Tablet, 4 MG NGT HS, TAB 07/18/18 Finasteride* (Finasteride*) 5 Mg Tablet, 5 MG NGT DAILY, TAB 07/18/18 Hydrochlorothiazide* (Hydrochlorothiazide*) 12.5 Mg Tablet, 12.5 MG NGT DAILY, #30 TAB 07/18/18 Pantoprazole* (Protonix*) 40 Mg Tablet.dr, 40 MG NGT DAILY, TAB 02/13/18 Atorvastatin* (Atorvastatin*) 40 Mg Tablet, 40 MG NGT QHS, #30 TAB 02/13/18 Discontinued Reported Medications Pregabalin* (Lyrica*) 50 Mg Capsule, 50 MG PO DAILY, CAP 07/18/18 Baclofen* (Baclofen*) 10 Mg Tablet, 10 MG PO BID, TAB 07/18/18 Docusate Sodium* (Colace*) 100 Mg Capsule, 100 MG PO BID, #60 CAP 07/18/18 Donepezil* (Donepezil*) 5 Mg Tablet, 5 MG PO DAILY, #30 TAB 07/18/18 Fluticasone Propionate* (Fluticasone Propionate* Nasal) 50 Mcg/[place] - 16 Gm [place].susp, 1 SPRAY NASAL DAILY, #1 BOTTLE TO EACH NOSTRIL 07/18/18 Docusate Sodium* (Doc-Q-Lace*) 100 Mg Capsule, 100 MG PO BID PRN for CONSTIPATION, CAP 02/13/18 Nifedipine* (Afeditab CR*) 30 Mg Tablet.sa, 30 MG PO BID, #30 TAB.SA 02/13/18 Meds reviewed: Yes Allergies Coded Allergies: No Known Allergy (Unverified , 08/13/18) Allergies Reviewed: Yes Labs/Studies Labs Reviewed: Reviewed by anesthesiologist test: N/A Studies: ECG Pre-procedure Exam Last vitals BP:140/78, pulse:60, spo2:100 , T:98,8 Airway: Adequate mouth opening, Adequate thyromental dist Mallampati: Mallampati III Teeth: Normal Lung: Normal Heart: Normal ASA Physical Status ASA physical status: 4 Emergency: E Planned Anesthetic General/MAC: Other (S/P Trach) Planned Pain Management Parenteral pain med Pre-operative Attestations Prior to commencing anesthesia and surgery, the patient was re-evaluated, there was verification of: *The patient's identity *The results of appropriate recent lab work and preoperative vital signs *The above evaluation not changing prior to induction *Anesthetic plan, risk benefits, alternative and complications discussed with patient/family; questions answered; patient/family understands, accepts and wishes to proceed. LENORE HANKINS MD Aug 13, 2018 13:55
--- NOTE | 2018-08-13 14:23 | PAC ---
Date/Time of Note Date/Time of Note DATE: 08/13/18 TIME: 14:22 Post-Anesthesia Notes Post-Anesthesia Note Activity: WNL Respiratory function: WNL Cardiovascular function: WNL Mental status: Baseline Pain reasonably controlled: Yes Hydration appropriate: Yes Nausea/Vomiting absent: Yes Comments 112/56,pulse:78, spo2:100%, T:98,8 LENORE HANKINS MD Aug 13, 2018 14:23
--- NOTE | 2018-08-14 15:08 | GILP ---
DATE OF PROCEDURE: PROCEDURE PERFORMED: EGD with biopsy, removal of foreign body and placement of G-tube. INDICATION: An 83-year-old male undergoing this procedure for GI bleeding and dysphagia. The risk o f the procedure, related and unrelated complications, anesthetic risks, alternatives were discussed a nd informed consent was obtained. DESCRIPTION OF PROCEDURE: The patient was brought to the OR, sedated by the anesthesiologist, was gi abi antibiotic prior to the procedure. After optimal sedation, scope was introduced into the orophar yngeal cavity and surprisingly, there was a tooth found in the oral cavity, which was removed with th e help of a Graham basket and sent it to pathology for analysis. Scope was advanced further down into stomach. No fresh blood was identified. Some fresh blood was seen near the distal part of the esoph reynaldo that was NG tube induced. I did not see any ulcer. No Lacey-Bunn tear. There were some hyp eremic patches seen in the stomach which were all related to NG tube suction. Duodenum, first and se cond part appeared normal. Biopsies were taken to rule out H. pylori infection. By transilluminatio n and digital palpation technique, appropriate site was chosen on anterior abdominal wall. Site was sterilized with chlorhexidine solution. A 2% Xylocaine instilled by safe method. A small incision w as made. Through that incision, trocar stylet was passed into the stomach. Stylet was removed throu gh the hollow tip of the catheter. Insertion wire was passed and the entire procedure was completed by modified Ponsky's technique. The patient was rescoped. The position of the internal bumper confi rmed. External bumper secured. There was no complication seen. No bleeding seen. The patient tole rated the procedure very well. IMPRESSION: 1. Successful removal of tooth from the oropharyngeal cavity. 2. Successful placement of G-tube. PLAN: Resume feeding after 6 hours, all the medication after 3 hours and abdominal binder all the ti me. Dictated By: JED SPRAGUE/NTS Conf#: [id number] DID#: [id number] CC: RUBÉN BENITO MD;*EndCC*
--- NOTE | 2018-08-28 09:12 | HPN ---
Date/Time of Note Date/Time of Note DATE: 08/28/18 TIME: 09:12 Interval H&P Admission Note Pt. seen H&P reviewed: No system changes JED SALAS MD Aug 28, 2018 09:12
[2018-08-28] MEDS ORDERED: ACET325S NGT (13:54)
[2018-08-28] MEDS ORDERED: ALBU2.5V3 NEB (13:55)
[2018-08-28] MEDS ORDERED: EPOE40002 SC (14:01)
[2018-08-28] MEDS ORDERED: GUAI-637 GTB (14:03)
[2018-08-28] MEDS ORDERED: LANS30CA GTB (14:04)
[2018-08-28] MEDS ORDERED: PRO20 PO (14:07)
[2018-08-28] MEDS ORDERED: ONDA4SOL IV* (14:10)
== END 2018-08-13 15:07 | disposition other institution (70) ==
LOC: GIL 11:48 → SDS 11:48 → GIL 15:07
PROVIDERS: ATTEND Internal Medicine Gastroenterology
DX: R13.10 Dysphagia, unspecified (principal); I10 Essential (primary) hypertension; E78.5 Hyperlipidemia, unspecified; E11.9 Type 2 diabetes mellitus without complications
CPT/HCPCS: 43239; 43246; 88305; 88312; J0690; J3010

== ENCOUNTER 2018-09-12 09:26 | Inpatient (IN) | payer MEDICARE, OTHER ==
[2018-09-12] VITALS (11 sets, daily range): BP systolic 89–127; BP diastolic 49–63; PULSE 60; RESP 16–28; Ht 162.6 cm; Wt 82.1 kg
[~2018-09-12] VITALS: Ht 162.6 cm; Wt 82.1 kg
[~2018-09-12 09:26] MED LIST changes: -ACET-2047 NGT; +ACET325S NGT; +ALBU2.5V3 NEB; -BACL10TA NGT; -BACL10TA PO; -DOCU-144 PO; -DOCU-221 PO; -DONE5TAB7 PO; -EPOE3000 SC; +EPOE40002 SC; -FLUT16SP17 NASAL; +GUAI-637 GTB; -HALO5AMP2 IM*; +LANS30CA GTB; -MERO500V2 IVPB; -NIFE10CA NGT; -NIFE30TA29 PO; +ONDA4SOL IV*; -PREG50CA PO; +PRO20 PO
[2018-09-12] MEDS ORDERED: POTASSIUM CHLORIDE 100 ML IVPB ONE (10:30)
--- NOTE | 2018-09-12 11:17 | ERD ---
ER Documentation Chief Complaint Chief Complaint sent from [facility] for low hgb HPI This is an 83-year-old male trach to vent dependent who presents to the emergency department with abnormal labs. The patient resides at [facility]. He has a history of end-stage renal disease on hemodialysis every Saturday and Saturday. The patient had a full run of dialysis yesterday. The patient had ancillary laboratory work performed during his dialysis session. The patient was anemic with a critical hemoglobin of 6.3. The patient has had no hemoptysis hematemesis or melanotic stools. The patient was immediately sent to the emergency department for repeat laboratory work ROS All systems reviewed and are negative except as per history of present illness. Medications Home Meds Reported Medications Ondansetron Hcl* (Ondansetron Hcl* Liq) 4 Mg/5 Ml Solution, 4 MG GTB Q6H PRN for NAUSEA AND/OR VOMITING, ML 09/12/18 Zinc Oxide* (Zinc Oxide*) 20%-30GM Oint, 1 APPLIC TOP DAILY, TUB 09/12/18 Ascorbic Acid* (Vitamin C*) 500 Mg Capsule.sa, 250 MG GTB DAILY, CAP 09/12/18 Multivit/Ca Carb/B Cmplx/Fa* (Ofe-Mine*) 1 Tab Tab, 1 TAB GTB DAILY, TAB 09/12/18 Protein Supplement (Promod) 946 Ml Liquid, 30 ML GTB BID 09/12/18 Sodium Chloride (Saline Nasal Marianna) 30 Ml Marianna, 2 SPRAYS NASAL DAILY, SPRAY 09/12/18 Hydrocodone/Acetaminophen (Harrold 5-325 Tablet) 1 Each Tablet, 1 EACH PO Q6 PRN for SEVERE PAIN LEVEL 7-10, TAB 09/12/18 Escitalopram Oxalate* (Lexapro*) 10 Mg Tablet, 10 MG GTB DAILY, #30 TAB 09/12/18 Ipratropium-Albuterol (Ipratropium-Albuterol) 0.5-3 Mg/3 Ml Ampul.neb, 3 ML INHALATION Q4 PRN for ELEVATED BLOOD PRESSURE, #30 VIAL 09/12/18 Hydralazine Hcl* (Hydralazine Hcl*) 10 Mg Tablet, 20 MG GTB Q4 PRN for ELEVATED BLOOD PRESSURE, #60 TAB HOLD FOR SBP<110 OR HR<60 09/12/18 Glucagon,Human Recombinant (Glucagen) 1 Mg/1 Ml Vial, 1 MG IJ DAILY, VIAL 09/12/18 Ertapenem Sodium (Invanz) 1 Gm Vial, 500 MG IM DAILY for 6 Days, VIAL START RX ON 09-11-18 TO 09-17-18 09/12/18 Lansoprazole* (Lansoprazole*) 30 Mg Capsule.dr, 30 MG GTB DAILY, CAP 08/28/18 Epoetin genesis* (Epogen*) 4,000 Unit/1 Ml Vial, 8000 UNIT SC MONWEDFRI, VIAL 08/28/18 Lorazepam* (Lorazepam*) 1 Mg Tablet, 1 MG NGT Q6 PRN for ANXIETY, #60 TAB 08/13/18 Docusate Sodium* (Docusate Sodium* Liq) 50 Mg/5 Ml Liquid, 100 MG GTB BID, ML 08/13/18 Collagenase* (Santyl*) 30 Gm Oint..gm., 1 APPLIC TOP BID PRN for PRN, #1 TUB 08/13/18 Balsam John/[place] Oil (Venelex Ointment) 60 Gm Oint..gm., 1 APPLIC TOP NEEDED PRN for PRN, #1 TUB 08/13/18 Allopurinol* (Allopurinol*) 100 Mg Tablet, 100 MG GTB DAILY, TAB 08/13/18 Finasteride* (Finasteride*) 5 Mg Tablet, 5 MG GTB DAILY, TAB 07/18/18 Discontinued Reported Medications Ondansetron Hcl* (Ondansetron Hcl* Liq) 4 Mg/5 Ml Solution, 4 MG IV* Q6H PRN for NAUSEA AND/OR VOMITING, ML 08/28/18 Nifedipine* (Procardia*) 20 Mg Cap, 20 MG PO Q8, CAP 08/28/18 Guaifenesin* (Robitussin*) 100 Mg/5 Ml Syrup, 200 MG GTB Q8 PRN for COUGH, ML 08/28/18 Albuterol Sulfate* (Albuterol Sulfate* Neb) 0.083%-3 Ml Neb, 2.5 MG NEB Q4 PRN for WHEEZING AND SOB, #30 VIAL 08/28/18 Acetaminophen* (Acetaminophen* Susp) 325 Mg/10.15 Ml Solution, 650 MG NGT Q6 PRN for PAIN, ML 08/28/18 Insulin Aspart* (Novolog Insulin Pen*) 100 Unit/Ml Soln, 0 SC .SLIDING SCALE AC, EA SLIDING SCALE 0-120 = 0 UNITS 121-150 = 0 UNITS 151-200 = 1 UNITS 201-250 = 2 UNITS 251-300 = 3 UNITS 301-350 = 4 UNITS 351-400 = 5 UNITS CALL PROVIDER IF OVER 400 AND GIVE 6 UNITS 08/13/18 Nystatin (Nystatin) 100,000 Unit/1 Ml Oral.susp, 10 ML PO TID, #60 ML 08/13/18 Morphine Sulfate* (Morphine* Liq) 10 Mg/5 Ml Solution, 6 MG NGT Q4H PRN for PAIN, ML 08/13/18 Hydralazine Hcl* (Apresoline* Pediatric IV Syringe) 1 Mg/Ml Soln, 20 MG IV Q4 PRN for ELEVATED BLOOD PRESSURE, EA INFUSE OVER 3-5 MIN MAX INFUSION 5MG/MIN CHECK BP UNTIL STABLE 08/13/18 Fentanyl Citrate/Pf (Sublimaze) 50 Mcg/1 Ml Ampul, 25 MCG IV* Q2HWA PRN for PAIN, AMP 08/13/18 Famotidine* (Famotidine*) 20 Mg Tablet, 20 MG NGT DAILY, #30 TAB 08/13/18 Doxazosin Mesylate* (Doxazosin Mesylate*) 4 Mg Tablet, 4 MG NGT HS, TAB 07/18/18 Hydrochlorothiazide* (Hydrochlorothiazide*) 12.5 Mg Tablet, 12.5 MG NGT DAILY, #30 TAB 07/18/18 Pantoprazole* (Protonix*) 40 Mg Tablet.dr, 40 MG NGT DAILY, TAB 02/13/18 Atorvastatin* (Atorvastatin*) 40 Mg Tablet, 40 MG NGT QHS, #30 TAB 02/13/18 Allergies Allergies: Coded Allergies: No Known Allergy (Unverified , 08/28/18) PMhx/Soc History of Surgery: Yes (CARDIAC STENT,PACEMAKER, TRACH,HD CATH PLACEMENT) Anesthesia Reaction: No (UNKNOWN) Hx Neurological Disorder: No Hx Respiratory Disorders: Yes (resp failure with vent;) Hx Cardiac Disorders: Yes (HTN,HLD,CAD, ESRD on HD; ) Hx Psychiatric Problems: Yes (anxiety; ) Hx Miscellaneous Medical Probl: Yes (prostate neoplasm; gout, GERD) Hx Alcohol Use: No (PER HX) Hx Substance Use: No (PER HX) Hx Tobacco Use: No (PER HX) Smoking Status: Never smoker Physical Exam Vitals Vital Signs Date Temp Pulse Resp B/P (MAP) Pulse Ox O2 O2 Flow FiO2 Time Delivery Rate 09/12/18 60 17 113/61 100 Room Air 13:23 (78) 09/12/18 55 22 100 40 13:08 09/12/18 60 23 77/50 (59) 100 Room Air 12:03 09/12/18 60 23 100 40 10:56 09/12/18 98.7 59 22 117/57 100 09:55 (77) 09/12/18 60 21 100 40 09:32 Physical Exam Constitutional:Well-developed. Well-nourished. HEENT:Normocephalic. Atraumatic.Pupils were equal round reactive to light. Moist mucous membranes.No tonsillar exudates. Conjunctival pallor Neck: No nuchal rigidity. No lymphadenopathy. No posterior cervical spine tenderness or step-offs. Tracheostomy site was clean dry and intact Respiratory: Not using accessory muscles of respiration.Lungs were clear to auscultation bilaterally. No rhonchi. No rales. No wheezing. Cardiovascular: Regular rate regular rhythm.No murmurs. No rubs were appreciated.S1, S2 normal. Distal pulses are palpable 2+ bilaterally. GI: Abdomen was soft. Nontender. Non Distended. No pulsatile abdominal masses or bruits. No rebound. No guarding. Bowel sounds were present and normal. PEG tube in place with no surrounding erythema warmth tenderness fluctuance or induration Muscle skeletal: Muscle atrophy of the bilateral lower extremities. No movement of the upper or lower extremities. Skin: No petechia, no purpura. No lesions on the palms or the soles of the feet. No maculopapular rash. Right tunneled chest wall catheter in place. PICC line present in the left antecubital region NEURO: Patient was alert, awake but aphasic. Patient bedbound so gait unobserved Result Diagram: 09/12/1837 09/12/1835 Results 24 hrs Laboratory Tests Test 09/12/18 09:35 09/12/18 09:37 Sodium Level 136 mmol/L Potassium Level 2.8 mmol/L Chloride Level 97 mmol/L Carbon Dioxide Level 26 mmol/L Anion Gap 13 Blood Urea Nitrogen 101 mg/dl Creatinine 2.75 mg/dl Est Glomerular Filtrat Rate mL/min mL/min Glucose Level 138 mg/dl Calcium Level 7.8 mg/dl Ferritin 2200.0 ng/ml Total Bilirubin 0.0 mg/dl Direct Bilirubin 0.00 mg/dl Indirect Bilirubin 0.0 mg/dl Aspartate Amino Transf (AST/SGOT) 67 IU/L Alanine Aminotransferase (ALT/SGPT) 36 IU/L Alkaline Phosphatase 130 IU/L Lactate Dehydrogenase 656 IU/L Total Protein 4.8 g/dl Albumin 2.0 g/dl Globulin 2.80 g/dl Albumin/Globulin Ratio 0.71 White Blood Count 4.0 10^3/ul Red Blood Count 2.25 10^6/ul Hemoglobin 7.2 g/dl Hematocrit 23.3 % Mean Corpuscular Volume 103.6 fl Mean Corpuscular Hemoglobin 32.0 pg Mean Corpuscular Hemoglobin Concent 30.9 g/dl Red Cell Distribution Width 26.1 % Platelet Count 50 10^3/UL Mean Platelet Volume fl Immature Granulocytes % 1.500 % Neutrophils % % Segmented Neutrophils % (Manual) 51 % Band Neutrophils % (Manual) 33 % Lymphocytes % % Lymphocytes % (Manual) 11 % Monocytes % % Monocytes % (Manual) 4 % Eosinophils % % Basophils % % Metamyelocytes % (manual) 1 % Nucleated Red Blood Cells % 5 % Immature Granulocytes # 0.120 10^3/ul Neutrophils # 10^3/ul Neutrophils # (Manual) 2.1 10^3/ul Band Neutrophils # 1.3 10^3/ul Lymphocytes (Manual) 0.4 10^3/ul Lymphocytes # 10^3/ul Monocytes # 10^3/ul Monocytes # (Manual) 0.1 10^3/ul Eosinophils # 10^3/ul Basophils # 10^3/ul Metamyelocytes # 0.0 10^3/ul Nucleated Red Blood Cells # 10^3/ul Platelet Estimate DECREASED Giant Platelets 6 % Polychromasia 1+ Poikilocytosis 1+ Anisocytosis 1+ Microcytosis 1+ Macrocytosis 1+ Iron Level 33 ug/dl Total Iron Binding Capacity 177 ug/dl Percent Iron Saturation 19 % SAT Current Medications Medications Dose Sig/Kayy Start Time Status Last (Trade) Ordered Route PRN Stop Time Admin Dose Reason Admin Potassium 100 ml @ ONCE ONCE 09/12/18 DC 09/12/18 Chloride 50 mls/hr IVPB 10:30 10:58 09/12/18 12:29 Ondansetron 4 mg ER BRIDGE 09/12/18 HCl (Zofran PRN IV 12:30 Inj) NAUSEA/VOMITI 09/13/18 12:29 NG 650 mg ER BRIDGE 09/12/18 Acetaminophen PRN PO 12:30 (Tylenol .MILD PAIN 09/13/18 12:29 Tab) 1-3 OR TEMP Procedures/MDM This is an 83-year-old male that presented to the emergency room trach to vent dependent. The patient had a BUN of 101 and creatinine 2.75 and will require emergent hemodialysis. The patient was hypokalemic with a potassium 2.8. The patient was given IV potassium chloride. The patient was also anemic with hemoglobin 7.2. The patient was transfused 1 unit of packed red blood cells. The patient will be admitted to his primary care physician Dr. Brown in serious condition with anticipated stay of greater than 2 midnights. Critical Care: Time: 45 minutes Treatments/Evaluations: Close monitoring and treatment of unstable vital signs, cardiorespiratory, and neurologic status, while maintaining tight balance of fluid, respiratory, and cardiac interventions. Time does not include performing any of the above billable procedures. Departure Diagnosis: Primary Impression: Anemia Anemia type: unspecified type Qualified Codes: D64.9 - Anemia, unspecified Additional Impressions: Renal failure (ARF), acute on chronic Acute renal failure type: unspecified Chronic kidney disease stage: on chronic dialysis Qualified Codes: N17.9 - Acute kidney failure, unspecified; N18.9 - Chronic kidney disease, unspecified; Z99.2 - Dependence on renal dialysis Hypokalemia Condition: Serious JESUS GONSALEZ MD Sep 12, 2018 11:13
[2018-09-12] MEDS ORDERED: ERTA1VIA3 IM (11:36)
[2018-09-12] MEDS ORDERED: GLUC1VIA3 IJ (11:37)
[2018-09-12] MEDS ORDERED: HYDR-3670 GTB (11:39)
[2018-09-12] MEDS ORDERED: IPRA3AMP29 INHALATION (11:55)
[2018-09-12] MEDS ORDERED: ESCI10TA GTB (11:55)
[2018-09-12] MEDS ORDERED: HYDR-4011 PO (11:56)
[2018-09-12] MEDS ORDERED: SODI30SP2 NASAL (11:57)
[2018-09-12] MEDS ORDERED: PROT946L GTB (11:58)
[2018-09-12] MEDS ORDERED: NEPH GTB (11:59)
[2018-09-12] MEDS ORDERED: ASCO500C7 GTB (12:00)
[2018-09-12] MEDS ORDERED: ONDA4SOL GTB (12:00)
[2018-09-12] MEDS ORDERED: ZNO30OI TOP (12:00)
[2018-09-12] MEDS ORDERED: ONDANSETRON 4 MG INJ IV PRN (12:30)
[2018-09-12] MEDS ORDERED: ACETAMINOPHEN 325 MG TAB PO PRN (12:30)
[2018-09-12] MEDS ORDERED: ALBUTEROL/IPRATROPIUM (NEB) 3 ML AMP HHN PRN (20:30)
[2018-09-12] MEDS ORDERED: ONDANSETRON 4 MG TAB GTB PRN (21:30)
[2018-09-12] MEDS: ERTAPENEM SODIUM 0.5 GM in SOD CHLORIDE 0.9% 100 ML IVPB SCH (23:12)
[2018-09-13] VITALS (42 sets, daily range): BP systolic 72–130; BP diastolic 26–70; PULSE 51–62; RESP 14–26
[2018-09-13] MEDS ORDERED: POTASSIUM CHLORIDE (SR) 20 MEQ TAB PO ONE (02:49)
--- NOTE | 2018-09-13 02:57 | HP ---
DATE OF ADMISSION: 09/12/2018 History has been obtained from medical record and also discussion with the ER physician, Dr. Kathia Plummer and patient's daughter. CHIEF COMPLAINT: Recent fever, hypertension and pancytopenia. HISTORY OF PRESENT ILLNESS: The patient is an 83-year-old gentleman well known to me from previous a dmission. The patient has history of coronary artery disease, status post PCI, prostate cancer, hype rtension, history of heart blocks, status post permanent pacemaker placement. The patient recently w as admitted for acute hypoxemic respiratory failure secondary to pneumonia and the hospital course wa s complicated by acute kidney injury requiring hemodialysis and also the patient was encephalopathic and since then has not recovered, although the patient is awake and responsive but is confused, is ve nt dependent and dialysis dependent. The patient a few days ago developed fever and mild hypertensio n. In fact, the patient could not undergo hemodialysis yesterday and was sent back to [facility]. The patient underwent urine culture and sputum culture and also was empirically started on meropenem. CBC and BMP were also ordered at [facility] and this morning I got the r esult. The WBC was 3.1, hemoglobin 6.5, platelet only 50. Chemistry revealed sodium 138, potassium 3.6, BUN 76, creatinine 2.2, glucose 203. The patient was sent to [facility] ER for further evaluation and management where his hemoglobin was noted to be 7.2 and platelets 50. The patient wa s recently discharged from [facility] in early part of 08/2018. His last blood test on 09/03/2018 had revealed WBC of 9.7, hemoglobin 8.4, platelet 268. The patient also had a few met amyelocytes, myelocytes, promyelocytes on 09/03/2018. However today, there is only 1 metamyelocyte. The patient has history of recurrent GI bleed and was seen by Dr. Hedrick on multiple occasions while he was at [facility] and underwent EGD and colonoscopy. 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 A colonoscopy revealed large hemorrhoid with ul ceration in one of them. The patient is being admitted for further evaluation and management. The p atient remains awake and responsive; however only follows simple commands. The patient was recently started on meropenem empirically and urine culture and sputum cultures were sent. Results are being requested. REVIEW OF SYSTEMS: Rather limited. Please review chief complaint and history of present illness. N o reported seizure. No reported gross melena. No reported hematemesis. No reported fever in the ER . No reported leg edema. The patient has chronic sacral decubitus. No reported abdominal distentio n. The patient is tolerating G-tube feeding well. PAST MEDICAL HISTORY: As stated above. PAST SURGICAL HISTORY: 1. Status post PCI for coronary artery disease. Details are not available. 2. Permanent pacemaker placement. 3. Tracheostomy, G-tube placement and dialysis catheter. SOCIAL HISTORY: No smoking or alcohol. FAMILY HISTORY: Negative for coronary artery disease or diabetes. MEDICATIONS: List from care home facility reviewed. PHYSICAL EXAMINATION: GENERAL: Revealed the patient to be lethargic, but arousable. VITAL SIGNS: Upon arrival, temperature 98.7, pulse 59, respiration 22, blood pressure 117/57, O2 sat uration 100% on mechanical ventilator with FiO2 of 40%. HEENT: Atraumatic, normocephalic. Conjunctivae and lids are normal. Nose and ears are normal. NECK: Tracheostomy in place, mild secretion. No mass. CHEST: Diminished air entry at bases. No use of accessory muscles. CARDIOVASCULAR: S1, S2 normal. No murmur, gallop or rub. ABDOMEN: Soft, nondistended, nontender. G-tube in place. EXTREMITIES: No edema, clubbing or cyanosis. NEUROLOGIC: Has generalized weakness in all extremities, awake, alert and oriented x2, follows simpl e commands. LABORATORY DATA: WBC 4, hemoglobin 7.2, platelets 50. Chemistry: Sodium 136, potassium 2.8, BUN 21 , creatinine 2.7, glucose 138. Iron 33, TIBC 177, percent saturation 19, ferritin 2200. AST 67, ALT 36, alkaline phosphatase 130. Lactate dehydrogenase 656. Calcium 7.8. IMPRESSION: 1. Pancytopenia. The patient does have history of recurrent gastrointestinal bleed. The patient sweeney s been given 1 unit of PRBC in the ER and we will obtain followup CBC. A GI consult from Dr. Hedrick has been requested. 2. Pancytopenia. We will obtain hematology consult from Dr. Hess for further evaluation and manage ment of pancytopenia. 3. Coronary artery disease, status post PCI. Unfortunately, the patient cannot be given aspirin or Plavix due to history of recurrent gastrointestinal bleed; however the patient's blood pressure is al so between 90s to 120s. We will hold off on any beta mark at this time. 4. Respiratory failure. Continue vent support. Wean as tolerated. We will request pulmonary consu ltation. 5. Depression. Continue Lexapro. 6. Benign prostatic hypertrophy. Continue Proscar. 7. History of recurrent gastrointestinal bleed due to erosive gastritis and also history of AV malfo rmation. Continue Prevacid. 8. Sacral decubitus. Continue local wound care. 9. Anemia of chronic disease with history of slow gastrointestinal blood loss due to arteriovenous m alformation. We will also continue local wound care for chronic sacral decubitus. 10. End-stage renal disease due to recent acute on chronic kidney disease. I spoke with Dr. Vinh Mari for dialysis. The patient does have hypokalemia for which potassium has been replaced. 11. Dysphagia. Continue G-tube feeding. Plan of care was discussed with the patient's . We will continue to follow him. Further recomme ndation will depend on hospital course. We will also do followup electrolytes tomorrow since the pat ient received potassium supplement for severe hypokalemia. Dictated By: RUBÉN BRODY/JAVIER Conf#: [id number] DID#: [id number]
[2018-09-13] MEDS ORDERED: LANSOPRAZOLE 30 MG CAP GTB ONE (09:00)
[2018-09-13] MEDS ORDERED: SALINE 0.65% 45 ML NAS SPRAY NASAL ONE (09:00)
[2018-09-13] MEDS: FINASTERIDE 5 MG TAB GTB SCH (09:44)
[2018-09-13] MEDS: DOCUSATE SODIUM 10 MG/ML (10ML CUP) GTB SCH ×2 (09:45→21:27)
[2018-09-13] MEDS: BALSAM PERU/CASTOR OIL 60 GM TUBE TOP SCH (09:45)
[2018-09-13] MEDS: ASCORBIC ACID 250 MG TAB GTB SCH (09:46)
[2018-09-13] MEDS: COLLAGENASE 5 GM (UD JAR) TOP SCH ×2 (09:46→21:27)
[2018-09-13] MEDS: ZINC OXIDE 20% 30 GM OINT TOP SCH (09:46)
[2018-09-13] MEDS: ESCITALOPRAM 10 MG TAB GTB SCH (09:46)
[2018-09-13] MEDS: MULTIVIT/CA CARB/B CMPLX/FA TAB GTB SCH (09:47)
--- NOTE | 2018-09-13 15:43 | CONS ---
DATE OF ADMISSION: 09/12/2018 DATE OF CONSULTATION: TYPE OF CONSULTATION: Pulmonary. REASON FOR CONSULTATION: Ventilator management. Thank you, Dr. Brown, for this consultation. HISTORY OF PRESENT ILLNESS: This is an unfortunate 83-year-old gentleman well known to Dr. Brown' s team with a history of coronary artery disease, hypertension, hyperlipidemia, prostate cancer with permanent pacemaker for heart block. He also, in addition, has tracheostomy for chronic respiratory failure requiring hemodialysis for end-stage renal failure. He had transient fever and low blood pre ssure, not tolerating hemodialysis. Commenced on meropenem. However, found to have a hemoglobin of 6.5 and platelets of 50. Subsequently, transferred to emergency room for further evaluation. Here, he had confirmation of anemia and now pending GI reevaluation. 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 PAST MEDICAL HISTORY: As above. MEDICATIONS: Per chart. ALLERGIES: NONE. SOCIAL HISTORY: Nonsmoker, no alcohol, no history of drug use. FAMILY HISTORY: Noncontributory. SYSTEMS REVIEW: A 12-point review of systems negative other than that mentioned above. PHYSICAL EXAMINATION: GENERAL: Elderly-appearing gentleman on mechanical ventilation. He appears comfortable at res t, no acute distress. VITAL SIGNS: Temperature 98, pulse is 60, blood pressure 104/64, O2 saturation 96%, FIO2 of 40%. NECK: Trach site clean and intact. CARDIAC: S1, S2, no added sounds or murmurs. CHEST: Diminished air entry bilaterally. ABDOMEN: Soft, nontender. No guarding or rebound. EXTREMITIES: No cyanosis, clubbing or edema. NEUROLOGIC: Generalized weakness. LABORATORY DATA: White count 6.3, hemoglobin 7.8, platelets of 39, BUN 105, creatinine 2.76. Mag 2. 6. Iron saturations are low. DIAGNOSTIC DATA: Chest x-ray is pending at the time of this dictation. IMPRESSION AND PLAN: 1. Recent urinary tract infection. 2. Significant anemia with a history of gastrointestinal bleeding. 3. Recurrent pneumonias with tracheostomy. 4. End-stage renal failure on hemodialysis. The patient will need: 1. Continued broad spectrum antibiotics. 2. Transfusion of packed red blood cells. 3. Gastrointestinal evaluation for ongoing gastrointestinal bleed. 4. Iron replacement. 5. Deep venous thrombosis and GI prophylaxis. Dictated By: SPENSER RICO MD SV/JAVIER Conf#: [id number] DID#: [id number] CC: RUBÉN BROWN MD;*EndCC*
--- NOTE | 2018-09-13 16:09 | PN ---
Date/Time of Note Date/Time of Note DATE: 09/13/18 TIME: 16:06 Assessment/Plan VTE Prophylaxis Risk score (from Nsg)>0 risk: 10 SCD applied (from Nsg): Yes Lines/Catheters IV Catheter Type (from Nrs): PERMACATH Urinary Cath still in place: No Assessment/Plan Assessment/Plan 1. Pancytopenia. The patient does have history of recurrent gastrointestinal bleed. The patient has been given 1 unit of PRBC in the ER and we will obtain followup CBC. A GI consult from Dr. Hedrick has been requested. 2. Pancytopenia. We will obtain hematology consult from Dr. Hess for further evaluation and management of pancytopenia. 3. Coronary artery disease, status post PCI. Unfortunately, the patient cannot be given aspirin or Plavix due to history of recurrent gastrointestinal bleed; however the patient's blood pressure is also between 90s to 120s. We will hold off on any beta mark at this time. 4. Respiratory failure. Continue vent support. Wean as tolerated. We will request pulmonary consultation. 5. Depression. Continue Lexapro. 6. Benign prostatic hypertrophy. Continue Proscar. 7. 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 Continue Prevacid. 8. Sacral decubitus. Continue local wound care. 9. Anemia of chronic disease with history of slow gastrointestinal blood loss due to arteriovenous malformation. We will also continue local wound care for chronic sacral decubitus. 10. End-stage renal disease due to recent acute on chronic kidney disease. I spoke with Dr. Vinh Mari for dialysis. The patient does have hypokalemia for which potassium has been replaced. 11. Dysphagia. Continue G-tube feeding. Total critical care time spent 30 mins.We will continue to follow him. Further recommendation will depend on hospital course. Result Diagram: 09/13/18 0551 09/13/18 0551 Results 24hrs Laboratory Tests Test 09/13/18 01:50 09/13/18 05:51 09/13/18 13:51 Sodium Level 135 137 Potassium Level 3.4 L 3.6 Chloride Level 96 L 95 L Carbon Dioxide Level 25 27 Anion Gap 14 H 15 H Blood Urea Nitrogen 104 H 105 H Creatinine 2.80 H 2.76 H Est Glomerular Filtrat Rate mL/min Glucose Level 102 105 Calcium Level 7.7 L 7.5 L Magnesium Level 2.6 H White Blood Count 6.3 # Red Blood Count 2.41 L Hemoglobin 7.8 L Hematocrit 24.0 L Mean Corpuscular Volume 99.6 Mean Corpuscular Hemoglobin 32.4 Mean Corpuscular 32.5 Hemoglobin Concent Red Cell Distribution Width 23.3 H Platelet Count 39 #L Mean Platelet Volume Immature Granulocytes % 1.700 H Neutrophils % Segmented Neutrophils 27 L % (Manual) Band Neutrophils % (Manual) 57 H Lymphocytes % Lymphocytes % (Manual) 10 L Monocytes % Monocytes % (Manual) 6 Eosinophils % Basophils % Nucleated Red Blood Cells % 11 H Immature Granulocytes # 0.110 H Neutrophils # Neutrophils # (Manual) 1.9 Band Neutrophils # 3.5 H Lymphocytes (Manual) 0.6 L Lymphocytes # Monocytes # Monocytes # (Manual) 0.3 Eosinophils # Basophils # Nucleated Red Blood Cells # Platelet Estimate SIG DECREASED Giant Platelets 1 H Polychromasia 1+ Poikilocytosis 1+ Anisocytosis 2+ Macrocytosis 2+ Iron Level 29 L Total Iron Binding Capacity 178 L Percent Iron Saturation 16 L Ferritin 1980.0 H Vitamin B12 Level > 1000 H Folate > 20.0 H Lab Scanned Report BLOOD TRANSFUSION Exam/Review of Systems Exam Vitals Vital Signs Date Temp Pulse Resp B/P (MAP) Pulse Ox O2 O2 Flow FiO2 Time Delivery Rate 09/13/18 60 20 104/58 100 Mechanical 14:00 (73) Ventilator 09/13/18 97.8 12:25 09/13/18 40 08:00 Intake and Output 09/12/18 09/12/18 09/13/18 1515:00 23:00 07:00 IntakeIntake Total 800 ml 60 ml 680 ml BalanceBalance 800 ml 60 ml 680 ml Results Results 24hrs Laboratory Tests Test 09/13/18 01:50 09/13/18 05:51 09/13/18 13:51 Sodium Level 135 137 Potassium Level 3.4 L 3.6 Chloride Level 96 L 95 L Carbon Dioxide Level 25 27 Anion Gap 14 H 15 H Blood Urea Nitrogen 104 H 105 H Creatinine 2.80 H 2.76 H Est Glomerular Filtrat Rate mL/min Glucose Level 102 105 Calcium Level 7.7 L 7.5 L Magnesium Level 2.6 H White Blood Count 6.3 # Red Blood Count 2.41 L Hemoglobin 7.8 L Hematocrit 24.0 L Mean Corpuscular Volume 99.6 Mean Corpuscular Hemoglobin 32.4 Mean Corpuscular 32.5 Hemoglobin Concent Red Cell Distribution Width 23.3 H Platelet Count 39 #L Mean Platelet Volume Immature Granulocytes % 1.700 H Neutrophils % Segmented Neutrophils 27 L % (Manual) Band Neutrophils % (Manual) 57 H Lymphocytes % Lymphocytes % (Manual) 10 L Monocytes % Monocytes % (Manual) 6 Eosinophils % Basophils % Nucleated Red Blood Cells % 11 H Immature Granulocytes # 0.110 H Neutrophils # Neutrophils # (Manual) 1.9 Band Neutrophils # 3.5 H Lymphocytes (Manual) 0.6 L Lymphocytes # Monocytes # Monocytes # (Manual) 0.3 Eosinophils # Basophils # Nucleated Red Blood Cells # Platelet Estimate SIG DECREASED Giant Platelets 1 H Polychromasia 1+ Poikilocytosis 1+ Anisocytosis 2+ Macrocytosis 2+ Iron Level 29 L Total Iron Binding Capacity 178 L Percent Iron Saturation 16 L Ferritin 1980.0 H Vitamin B12 Level > 1000 H Folate > 20.0 H Lab Scanned Report BLOOD TRANSFUSION Medications Medication Current Medications Influenza Virus Vaccine Quadrival (Fluzone) 0.5 ml ONCE ONCE IM* ; Start 09/15/18 at 09:00; Stop 09/15/18 at 09:01 Albuterol/ Ipratropium (Duoneb) 3 ml Q4H RESP THERAPY PRN HHN SHORTNESS OF BREATH; Start 09/12/18 at 20:30 Ascorbic Acid (Vitamin C) 250 mg DAILY GTB Last administered on 09/13/18at 09:46; Admin Dose 250 MG; Start 09/13/18 at 09:00 Collagenase (Santyl) 1 applic BID TOP Last administered on 09/13/18at 09:46; Admin Dose 1 APPLIC; Start 09/13/18 at 09:00 Docusate Sodium (Colace Liquid Cup) 50 mg BID GTB Last administered on 09/13/18at 09:45; Admin Dose 50 MG; Start 09/13/18 at 09:00 Epoetin Tim (Epogen (Esrd)) 8,000 units MoWeFr@17 SC ; Start 09/15/18 at 17:00 Ertapenem 0.5 gm/ Sodium Chloride 100 ml @ 200 mls/hr Q24H IVPB Last administered on 09/12/18at 23:12; Admin Dose 200 MLS/HR; Start 09/12/18 at 22:00; Stop 09/17/18 at 21:59 Escitalopram Oxalate (Lexapro) 10 mg DAILY GTB Last administered on 09/13/18 09:46; Admin Dose 10 MG; Start 09/13/18 at 09:00 Finasteride (Proscar) 5 mg DAILY GTB Last administered on 09/13/18at 09:44; Admin Dose 5 MG; Start 09/13/18 at 09:00 Acetaminophen/ Hydrocodone Bitart ([place] (5/325)) 1 tab Q6H PRN PO MODERATE PAIN LEVEL 4-6; Start 09/12/18 at 21:30 Lorazepam (Ativan) 0.5 mg Q6H PRN GTB ANXIETY; Start 09/12/18 at 21:30 Multivit/Ca Carb/ B Cmplx/FA/Prenat (Ofe-Mine) 1 tab DAILY GTB Last admini stered on 09/13/18at 09:47; Admin Dose 1 TAB; Start 09/13/18 at 09:00 Ondansetron HCl (Zofran Tab) 4 mg Q6H PRN GTB NAUSEA AND/OR VOMITING; Start 09/12/18 at 21:30 Zinc Oxide (Zinc Oxide Oint) 1 applic DAILY TOP Last administered on 09/13/18at 09:46; Admin Dose 1 APPLIC; Start 09/13/18 at 09:00 Pantoprazole (Protonix Iv) 40 mg DAILY@06 IV ; Start 09/14/18 at 06:00 JENNIFER RICHARD Sep 13, 2018 16:09
--- NOTE | 2018-09-13 16:21 | CONS ---
Assessment/Plan Assessment/Plan Assessment/Plan (Daily) 1. acute fluid overload due to inadquate HD due to hypotension 2. Severe anemia concerbed about GI bleeding 3. Hypokalemia 4. ESRD on HD on Sat, , saturday schedule at [facility] 5. h/o HTN 6. h/o HL 7. H/o Prostate CA 8. H/O Chronic respiratory failure s/p tracheostomy in place Plan: Seen iN ICU, s/p PRBC, now Hb 7.8- GI consulted on the case, will start pt on epogen 8000 units SQ TTS- will give one dose today Plan for HD tomorrow then we will keep pt on Sat, , saturday schedule IV Ferrlectin x 5 doses for iron deficiency anemia GI dr. Hedrick has been consulted on the case Thanks for consultation, I will continue to follow up Consultation Date/Type/Reason Admit Date/Time Sep 12, 2018 at 12:05 Date of Consultation: Sep 13, 2018 Type of Consult NEPHROLOGY Reason for Consultation ESRD on HD , admited with possible GI bleeding, Hypokalemia, Sepsis Requesting Provider: RUBÉN BENITO MD Date/Time of Note DATE: 09/13/18 TIME: 16:21 Hx of Present Illness 83-year-old male with a history of coronary artery disease, hypertension, hyperlipidemia, prostate cancer with permanent pacemaker for heart block. He also, in addition, has tracheostomy for chronic respiratory failure requiring hemodialysis for end-stage renal failure. He had transient fever and low blood pressure, not tolerating hemodialysis. Commenced on meropenem. However, found to have a hemoglobin of 6.5 and platelets of 50. pt gets admitted for GI bleeding, severe anemia and Sepsis. S/p PRBC transfusion today, Renal has been consulted for HD need. he has a history of previous GI bleeds with erosive esophagitis and AV malformations in the small bowel. GI dr Hedrick has been consulted on the case Subjective hx not possible: pt critical status, other (non verbal due to trach dependant on ventilator ) Past Medical History Medical History: high cholesterol, hypertension, other (ESRD on HD, Prostate CA ) Home Meds Reported Medications Ondansetron Hcl* (Ondansetron Hcl* Liq) 4 Mg/5 Ml Solution, 4 MG GTB Q6H PRN for NAUSEA AND/OR VOMITING, ML 09/12/18 Zinc Oxide* (Zinc Oxide*) 20%-30GM Oint, 1 APPLIC TOP DAILY, TUB 09/12/18 Ascorbic Acid* (Vitamin C*) 500 Mg Capsule.sa, 250 MG GTB DAILY, CAP 09/12/18 Multivit/Ca Carb/B Cmplx/Fa* (Ofe-Mine*) 1 Tab Tab, 1 TAB GTB DAILY, TAB 09/12/18 Protein Supplement (Promod) 946 Ml Liquid, 30 ML GTB BID 09/12/18 Sodium Chloride (Saline Nasal [place]) 30 Ml [place], 2 SPRAYS NASAL DAILY, SPRAY 09/12/18 Hydrocodone/Acetaminophen ([place] 5-325 Tablet) 1 Each Tablet, 1 EACH PO Q6 PRN for SEVERE PAIN LEVEL 7-10, TAB 09/12/18 Escitalopram Oxalate* (Lexapro*) 10 Mg Tablet, 10 MG GTB DAILY, #30 TAB 09/12/18 Ipratropium-Albuterol (Ipratropium-Albuterol) 0.5-3 Mg/3 Ml Ampul.neb, 3 ML INHALATION Q4 PRN for ELEVATED BLOOD PRESSURE, #30 VIAL 09/12/18 Hydralazine Hcl* (Hydralazine Hcl*) 10 Mg Tablet, 20 MG GTB Q4 PRN for ELEVATED BLOOD PRESSURE, #60 TAB HOLD FOR SBP<110 OR HR<60 09/12/18 Glucagon,Human Recombinant (Glucagen) 1 Mg/1 Ml Vial, 1 MG IJ DAILY, VIAL 09/12/18 Ertapenem Sodium (Invanz) 1 Gm Vial, 500 MG IM DAILY for 6 Days, VIAL START RX ON 09-11-18 TO 09-17-18 09/12/18 Lansoprazole* (Lansoprazole*) 30 Mg Capsule.dr, 30 MG GTB DAILY, CAP 08/28/18 Epoetin genesis* (Epogen*) 4,000 Unit/1 Ml Vial, 8000 UNIT SC [place], VIAL 08/28/18 Lorazepam* (Lorazepam*) 1 Mg Tablet, 1 MG NGT Q6 PRN for ANXIETY, #60 TAB 08/13/18 Docusate Sodium* (Docusate Sodium* Liq) 50 Mg/5 Ml Liquid, 100 MG GTB BID, ML 08/13/18 Collagenase* (Santyl*) 30 Gm Oint..gm., 1 APPLIC TOP BID PRN for PRN, #1 TUB 08/13/18 Balsam [place] Oil (Venelex Ointment) 60 Gm Oint..gm., 1 APPLIC TOP NEEDED PRN for PRN, #1 TUB 08/13/18 Allopurinol* (Allopurinol*) 100 Mg Tablet, 100 MG GTB DAILY, TAB 08/13/18 Finasteride* (Finasteride*) 5 Mg Tablet, 5 MG GTB DAILY, TAB 07/18/18 Discontinued Reported Medications Ondansetron Hcl* (Ondansetron Hcl* Liq) 4 Mg/5 Ml Solution, 4 MG IV* Q6H PRN for NAUSEA AND/OR VOMITING, ML 08/28/18 Nifedipine* (Procardia*) 20 Mg Cap, 20 MG PO Q8, CAP 08/28/18 Guaifenesin* (Robitussin*) 100 Mg/5 Ml Syrup, 200 MG GTB Q8 PRN for COUGH, ML 08/28/18 Albuterol Sulfate* (Albuterol Sulfate* Neb) 0.083%-3 Ml Neb, 2.5 MG NEB Q4 PRN for WHEEZING AND SOB, #30 VIAL 08/28/18 Acetaminophen* (Acetaminophen* Susp) 325 Mg/10.15 Ml Solution, 650 MG NGT Q6 PRN for PAIN, ML 08/28/18 Insulin Aspart* (Novolog Insulin Pen*) 100 Unit/Ml Soln, 0 SC .SLIDING SCALE AC, EA SLIDING SCALE 0-120 = 0 UNITS 121-150 = 0 UNITS 151-200 = 1 UNITS 201-250 = 2 UNITS 251-300 = 3 UNITS 301-350 = 4 UNITS 351-400 = 5 UNITS CALL PROVIDER IF OVER 400 AND GIVE 6 UNITS 08/13/18 Nystatin (Nystatin) 100,000 Unit/1 Ml Oral.susp, 10 ML PO TID, #60 ML 08/13/18 Morphine Sulfate* (Morphine* Liq) 10 Mg/5 Ml Solution, 6 MG NGT Q4H PRN for PAIN, ML 08/13/18 Hydralazine Hcl* (Apresoline* Pediatric IV Syringe) 1 Mg/Ml Soln, 20 MG IV Q4 PRN for ELEVATED BLOOD PRESSURE, EA INFUSE OVER 3-5 MIN MAX INFUSION 5MG/MIN CHECK BP UNTIL STABLE 08/13/18 Fentanyl Citrate/Pf (Sublimaze) 50 Mcg/1 Ml Ampul, 25 MCG IV* Q2HWA PRN for PAIN, AMP 08/13/18 Famotidine* (Famotidine*) 20 Mg Tablet, 20 MG NGT DAILY, #30 TAB 08/13/18 Doxazosin Mesylate* (Doxazosin Mesylate*) 4 Mg Tablet, 4 MG NGT HS, TAB 07/18/18 Hydrochlorothiazide* (Hydrochlorothiazide*) 12.5 Mg Tablet, 12.5 MG NGT DAILY, #30 TAB 07/18/18 Pantoprazole* (Protonix*) 40 Mg Tablet.dr, 40 MG NGT DAILY, TAB 02/13/18 Atorvastatin* (Atorvastatin*) 40 Mg Tablet, 40 MG NGT QHS, #30 TAB 02/13/18 Medications Current Medications Influenza Virus Vaccine Quadrival (Fluzone) 0.5 ml ONCE ONCE IM* ; Start 09/15/18 at 09:00; Stop 09/15/18 at 09:01 Albuterol/ Ipratropium (Duoneb) 3 ml Q4H RESP THERAPY PRN HHN SHORTNESS OF BREATH; Start 09/12/18 at 20:30 Ascorbic Acid (Vitamin C) 250 mg DAILY GTB Last administered on 09/13/18at 09:46; Admin Dose 250 MG; Start 09/13/18 at 09:00 Collagenase (Santyl) 1 applic BID TOP Last administered on 09/13/18at 09:46; Admin Dose 1 APPLIC; Start 09/13/18 at 09:00 Docusate Sodium (Colace Liquid Cup) 50 mg BID GTB Last administered on 09/13/18at 09:45; Admin Dose 50 MG; Start 09/13/18 at 09:00 Epoetin Genesis (Epogen (Esrd)) 8,000 units MoWeFr@17 SC ; Start 09/15/18 at 17:00 Ertapenem 0.5 gm/ Sodium Chloride 100 ml @ 200 mls/hr Q24H IVPB Last admini stered on 09/12/18at 23:12; Admin Dose 200 MLS/HR; Start 09/12/18 at 22:00; Stop 09/17/18 at 21:59 Escitalopram Oxalate (Lexapro) 10 mg DAILY GTB Last administered on 09/13/18at 09:46; Admin Dose 10 MG; Start 09/13/18 at 09:00 Finasteride (Proscar) 5 mg DAILY GTB Last administered on 09/13/18at 09:44; Admin Dose 5 MG; Start 09/13/18 at 09:00 Acetaminophen/ Hydrocodone Bitart ([place] (5/325)) 1 tab Q6H PRN PO MODERATE PAIN LEVEL 4-6; Start 09/12/18 at 21:30 Lorazepam (Ativan) 0.5 mg Q6H PRN GTB ANXIETY; Start 09/12/18 at 21:30 Multivit/Ca Carb/ B Cmplx/FA/Prenat (Ofe-Mine) 1 tab DAILY GTB Last administered on 09/13/18at 09:47; Admin Dose 1 TAB; Start 09/13/18 at 09:00 Ondansetron HCl (Zofran Tab) 4 mg Q6H PRN GTB NAUSEA AND/OR VOMITING; Start 09/12/18 at 21:30 Zinc Oxide (Zinc Oxide Oint) 1 applic DAILY TOP Last administered on 09/13/18at 09:46; Admin Dose 1 APPLIC; Start 09/13/18 at 09:00 Pantoprazole (Protonix Iv) 40 mg DAILY@06 IV ; Start 09/14/18 at 06:00 Allergies: Coded Allergies: No Known Allergy (Unverified , 08/28/18) Past Surgical History Past Surgical Hx: other (+ tracheostomy + g tube in place ) Family History Significant Family History: no pertinent family hx Social History Alcohol Use: none Smoking Status: Never smoker Exam/Review of Systems Exam Vitals Vital Signs Date Temp Pulse Resp B/P (MAP) Pulse Ox O2 O2 Flow FiO2 Time Delivery Rate 09/13/18 60 20 104/58 100 Mechanical 14:00 (73) Ventilator 09/13/18 97.8 12:25 09/13/18 40 08:00 Intake and Output 09/12/18 09/12/18 09/13/18 1515:00 23:00 07:00 IntakeIntake Total 800 ml 60 ml 680 ml BalanceBalance 800 ml 60 ml 680 ml Constitutional: non-verbal, distress Head: normocephalic ENMT: other (+ tracheostomy on venitlaotr ) Neck: supple Respiratory: diminished breath sounds, other (Bilateral coarse BS+) Cardiovascular: regular rate and rhythm Gastrointestinal: soft, other ( G tube in place ) Musculoskeletal: nl extremities to inspection Neurological: other (non verbal, on ventilator ) Lymph: nl lymph nodes Results Result Diagram: 09/13/18 0551 09/13/18 0551 Results 24hrs Laboratory Tests Test 09/13/18 01:50 09/13/18 05:51 09/13/18 09:00 09/13/18 13:51 Sodium Level 135 137 Potassium Level 3.4 L 3.6 Chloride Level 96 L 95 L Carbon Dioxide 25 27 Level Anion Gap 14 H 15 H Blood Urea 104 H 105 H Nitrogen Creatinine 2.80 H 2.76 H Est Glomerular Filtrat Rate mL/min Glucose Level 102 105 Calcium Level 7.7 L 7.5 L Magnesium Level 2.6 H White Blood 6.3 # Count Red Blood Count 2.41 L Hemoglobin 7.8 L Hematocrit 24.0 L Mean Corpuscular 99.6 Volume Mean Corpuscular 32.4 Hemoglobin Mean Corpuscular 32.5 Hemoglobin Olivia nt Red Cell 23.3 H Distribution Width Platelet Count 39 #L Mean Platelet Volume Immature 1.700 H Granulocytes % Neutrophils % Segmented 27 L Neutrophils % (Manual) Band Neutrophils 57 H % (Manual) Lymphocytes % Lymphocytes % 10 L (Manual) Monocytes % Monocytes % 6 (Manual) Eosinophils % Basophils % Nucleated Red 11 H Blood Cells % Immature 0.110 H Granulocytes # Neutrophils # Neutrophils # 1.9 (Manual) Band Neutrophils 3.5 H # Lymphocytes 0.6 L (Manual) Lymphocytes # Monocytes # Monocytes # 0.3 (Manual) Eosinophils # Basophils # Nucleated Red Blood Cells # Platelet SIG DECREASED Estimate Giant Platelets 1 H Polychromasia 1+ Poikilocytosis 1+ Anisocytosis 2+ Macrocytosis 2+ Iron Level 29 L Total Iron 178 L Binding Capacity Percent Iron 16 L Saturation Ferritin 1980.0 H Vitamin B12 > 1000 H Level Folate > 20.0 H Stool Occult NEGATIVE Blood Lab Scanned BLOOD TRANSFUSI Report ON Medications Medication Current Medications Influenza Virus Vaccine Quadrival (Fluzone) 0.5 ml ONCE ONCE IM* ; Start 09/15/18 at 09:00; Stop 09/15/18 at 09:01 Albuterol/ Ipratropium (Duoneb) 3 ml Q4H RESP THERAPY PRN HHN SHORTNESS OF BREATH; Start 09/12/18 at 20:30 Ascorbic Acid (Vitamin C) 250 mg DAILY GTB Last administered on 09/13/18 09:46; Admin Dose 250 MG; Start 09/13/18 at 09:00 Collagenase (Santyl) 1 applic BID TOP Last administered on 09/13/18 09:46; Admin Dose 1 APPLIC; Start 09/13/18 at 09:00 Docusate Sodium (Colace Liquid Cup) 50 mg BID GTB Last administered on 09:45; Admin Dose 50 MG; Start 09/13/18 at 09:00 Epoetin Genesis (Epogen (Esrd)) 8,000 units MoWeFr@17 SC ; Start 09/15/18 at 17:00 Ertapenem 0.5 gm/ Sodium Chloride 100 ml @ 200 mls/hr Q24H IVPB Last administered on 09/12/18 23:12; Admin Dose 200 MLS/HR; Start 09/12/18 at 22:00; Stop 09/17/18 at 21:59 Escitalopram Oxalate (Lexapro) 10 mg DAILY GTB Last administered on 09/13/18 09:46; Admin Dose 10 MG; Start 09/13/18 at 09:00 Finasteride (Proscar) 5 mg DAILY GTB Last administered on 09/13/18 09:44; Admin Dose 5 MG; Start 09/13/18 at 09:00 Acetaminophen/ Hydrocodone Bitart ([place] (5/325)) 1 tab Q6H PRN PO MODERATE PAIN LEVEL 4-6; Start 09/12/18 at 21:30 Lorazepam (Ativan) 0.5 mg Q6H PRN GTB ANXIETY; Start 09/12/18 at 21:30 Multivit/Ca Carb/ B Cmplx/FA/Prenat (Ofe-Mine) 1 tab DAILY GTB Last administered on 09/13/18 09:47; Admin Dose 1 TAB; Start 09/13/18 at 09:00 Ondansetron HCl (Zofran Tab) 4 mg Q6H PRN GTB NAUSEA AND/OR VOMITING; Start 09/12/18 at 21:30 Zinc Oxide (Zinc Oxide Oint) 1 applic DAILY TOP Last administered on 09/13/18at 09:46; Admin Dose 1 APPLIC; Start 09/13/18 at 09:00 Pantoprazole (Protonix Iv) 40 mg DAILY@06 IV ; Start 09/14/18 at 06:00 FELICIANO RAMIREZ MD Sep 13, 2018 16:21
[2018-09-13] MEDS ORDERED: SODIUM CHLORIDE 0.9% 1L BAG IV PRN (16:30)
--- NOTE | 2018-09-13 17:15 | CONS ---
DATE OF ADMISSION: 09/12/2018 DATE OF CONSULTATION: TYPE OF CONSULTATION: Gastroenterology. REASON FOR CONSULTATION: Anemia. HISTORY OF PRESENT ILLNESS: An 83-year-old male with a history of coronary artery disease status pos t PCI, prostate cancer, hypertension, status post permanent pacemaker, vent dependent respiratory liz lure, who developed a fever, so patient was sent to the emergency room. In the ER, patient was found to have BUN of 76, creatinine of 2.2, hemoglobin was low, so was admitted for further management and treatment. No history could be obtained from the patient. REVIEW OF SYSTEMS: Has got a chronic decubitus ulcer, PEG and trach. No active GI bleeding. PAST SURGICAL HISTORY: PCI for coronary artery disease, permanent pacemaker. SOCIAL HISTORY: Does not smoke or drink. He is a resident of a [place]. PHYSICAL EXAMINATION GENERAL: Patient keeps eyes open. Does not communicate. CARDIOVASCULAR: No murmur, gallop or click. LUNGS: Air entry diminished at both bases. ABDOMEN: Benign. He has got a G-tube, is tolerating feeding. EXTREMITIES: No edema. CENTRAL NERVOUS SYSTEM: The patient is nonverbal. LABORATORY DATA: His hematocrit was 23.3 yesterday, now is 24, WBC is 6.3. BUN is 105, creatinine i s 2.76. His ferritin level was almost 2000. B12 was high. Folic acid was high. IMAGING STUDY: Chest x-ray showed cardiomegaly. IMPRESSION: 1. Pancytopenia. At this point, no evidence of active GI bleeding. 2. Coronary artery disease status post PCI. 3. Respiratory failure. 4. Benign prostatic hypertrophy. 5. Depression. 6. Sacral decubitus ulcer. 7. End-stage renal disease on dialysis. PLAN: Send a stool for occult blood. We will monitor for acute GI bleeding. We will also send for retic count to make sure the bone marrow is not suppressed. Continue PPI in the interim. Dictated By: JED SPRAGUE/JAVIER Conf#: [id number] DID#: [id number] CC: RUBÉN BENITO MD;*EndCC*
[2018-09-13] MEDS: LORAZEPAM 0.5 MG TAB GTB PRN (17:47)
[2018-09-13] MEDS: EPOETIN 4000 UNITS/1 ML INJ (ESRD) SC SCH (17:48)
[2018-09-13] MEDS: ERTAPENEM SODIUM 0.5 GM in SOD CHLORIDE 0.9% 100 ML IVPB SCH (21:28)
[2018-09-14] VITALS (39 sets, daily range): BP systolic 72–121; BP diastolic 39–64; PULSE 20–64; RESP 15–26
[2018-09-14] MEDS: PANTOPRAZOLE 40 MG INJ IV SCH (07:30)
--- NOTE | 2018-09-14 07:35 | CONS ---
Assessment/Plan Assessment/Plan Assessment/Plan (Daily) 1. acute fluid overload due to inadquate HD due to hypotension 2. Severe anemia concerned about GI bleeding 3. Hypokalemia 4. ESRD on HD on Sat, , saturday schedule at [facility] [place] [facility] 5. h/o HTN 6. h/o HL 7. H/o Prostate CA 8. H/O Chronic respiratory failure s/p tracheostomy in place Plan: BP Dropped during HD today, has to cut back on HD for 2hr today epogen 8000 units SQ TTS- will give one dose today After today, next HD will be on Saturday, we will keep pt on Sat, , saturday schedule IV Ferrlectin x 5 doses for iron deficiency anemia GI following will follow up Consultation Date/Type/Reason Admit Date/Time Sep 12, 2018 at 12:05 Initial Consult Date 09/13/18 Type of Consult NEPHROLOGY Requesting Provider: RUBÉN BENITO MD Date/Time of Note DATE: 09/14/18 TIME: 07:34 Exam/Review of Systems Exam Vitals Vital Signs Date Temp Pulse Resp B/P (MAP) Pulse Ox O2 O2 Flow FiO2 Time Delivery Rate 09/14/18 60 17 100 35 05:31 09/14/18 98.4 107/44 04:24 (65) 09/14/18 Mechanical 02:15 Ventilator Intake and Output 09/13/18 09/13/18 09/14/18 1414:59 22:59 06:59 IntakeIntake Total 580 ml 580 ml 620 ml OutputOutput Total 250 ml 200 ml BalanceBalance 580 ml 330 ml 420 ml Exam Constitutional: non-verbal, distress Head: normocephalic ENMT: other (+ tracheostomy on venitlaotr ) Neck: supple Respiratory: diminished breath sounds, other (Bilateral coarse BS+) Cardiovascular: regular rate and rhythm Gastrointestinal: soft, other ( G tube in place ) Musculoskeletal: nl extremities to inspection Neurological: other (non verbal, on ventilator ) Lymph: nl lymph nodes Results Result Diagram: 09/14/1852209/14/18522 Results 24hrs Laboratory Tests Test 09/13/18 09:00 09/13/18 13:51 09/14/18 05:23 Stool Occult Blood NEGATIVE Lab Scanned Report BLOOD TRANSFUSION White Blood Count 5.6 Red Blood Count 2.46 L Hemoglobin 7.9 L Hematocrit 24.8 L Mean Corpuscular Volume 100.8 Mean Corpuscular Hemoglobin 32.1 Mean Corpuscular 31.9 L Hemoglobin Concent Red Cell Distribution Width 24.1 H Platelet Count 40 L Mean Platelet Volume Immature Granulocytes % 7.300 H Neutrophils % Lymphocytes % Monocytes % Eosinophils % Basophils % Nucleated Red Blood Cells % 7.8 H Immature Granulocytes # 0.410 H Neutrophils # Lymphocytes # Monocytes # Eosinophils # Basophils # Nucleated Red Blood Cells # Absolute Reticulocyte Count 0.061 Percent Reticulocyte Count 2.4 H Sodium Level 137 Potassium Level 3.2 L Chloride Level 98 Carbon Dioxide Level 23 Anion Gap 16 H Blood Urea Nitrogen 118 H Creatinine 2.92 H Est Glomerular Filtrat Rate mL/min Glucose Level 154 Calcium Level 7.6 L Phosphorus Level 3.5 Magnesium Level 2.5 Iron Level 31 L Total Iron Binding Capacity 156 L Percent Iron Saturation 20 L Total Bilirubin 0.0 L Direct Bilirubin 0.00 Indirect Bilirubin 0.0 Aspartate Amino 59 H Transf (AST/SGOT) Alanine 42 Aminotransferase (ALT/SGPT) Alkaline Phosphatase 121 Total Protein 4.4 L Albumin 1.8 L Globulin 2.60 Albumin/Globulin Ratio 0.69 Vitamin B12 Level > 1000 H Folate > 20.0 H Medications Medication Current Medications Influenza Virus Vaccine Quadrival (Fluzone) 0.5 ml ONCE ONCE IM* ; Start 09/15/18 at 09:00; Stop 09/15/18 at 09:01 Albuterol/ Ipratropium (Duoneb) 3 ml Q4H RESP THERAPY PRN HHN SHORTNESS OF BREATH; Start 09/12/18 at 20:30 Ascorbic Acid (Vitamin C) 250 mg DAILY GTB Last administered on 09/13/18at 09:46; Admin Dose 250 MG; Start 09/13/18 at 09:00 Collagenase (Santyl) 1 applic BID TOP Last administered on 09/13/18 21:27; Admin Dose 1 APPLIC; Start 09/13/18 at 09:00 Docusate Sodium (Colace Liquid Cup) 50 mg BID GTB Last administered on 09/13/18at 21:27; Admin Dose 50 MG; Start 09/13/18 at 09:00 Ertapenem 0.5 gm/ Sodium Chloride 100 ml @ 200 mls/hr Q24H IVPB Last administered on 09/13/18at 21:28; Admin Dose 200 MLS/HR; Start 09/12/18 at 22:00; Stop 09/17/18 at 21:59 Escitalopram Oxalate (Lexapro) 10 mg DAILY GTB Last administered on 09/13/18 09:46; Admin Dose 10 MG; Start 09/13/18 at 09:00 Finasteride (Proscar) 5 mg DAILY GTB Last administered on 09/13/18at 09:44; Admin Dose 5 MG; Start 09/13/18 at 09:00 Acetaminophen/ Hydrocodone Bitart ([place] (5/325)) 1 tab Q6H PRN PO MODERATE PAIN LEVEL 4-6; Start 09/12/18 at 21:30 Lorazepam (Ativan) 0.5 mg Q6H PRN GTB ANXIETY Last administered on 09/13/18at 17:47; Admin Dose 0.5 MG; Start 09/12/18 at 21:30 Multivit/Ca Carb/ B Cmplx/FA/Prenat ([place]fe-Mine) 1 tab DAILY GTB Last administered on 09/13/18at 09:47; Admin Dose 1 TAB; Start 09/13/18 at 09:00 Ondansetron HCl (Zofran Tab) 4 mg Q6H PRN GTB NAUSEA AND/OR VOMITING; Start 09/12/18 at 21:30 Zinc Oxide (Zinc Oxide Oint) 1 applic DAILY TOP Last administered on 09/13/18at 09:46; Admin Dose 1 APPLIC; Start 09/13/18 at 09:00 Pantoprazole (Protonix Iv) 40 mg DAILY@06 IV Last administered on 09/14/18at 07:30; Admin Dose 40 MG; Start 09/14/18 at 06:00 Heparin Sodium (Porcine) (Heparin (1000 Units/ml)) 4,000 unit AFTER DIALYSIS CATHETER ; Start 09/13/18 at 16:30 Albumin Human 100 ml @ 100 mls/hr WITH DIALYSIS PRN IV SBP <90 DURING DIALYSIS; Start 09/13/18 at 16:30 Sodium Chloride (NS) -To prime the dialy... DIRECTED FOR HD PRN IV HD; Start 09/13/18 at 16:30 Ferric Sodium Gluconate Complex 125 mg/Sodium Chloride 110 ml @ 110 mls/hr DAILY@1300 IVPB ; Start 09/14/18 at 13:00; Stop 09/18/18 at 13:59 Epoetin Tim (Epogen (Esrd)) 8,000 units TuThSa@17 SC Last administered on 09/13/18at 17:48; Admin Dose 8,000 UNITS; Start 09/13/18 at 17:00 FELICIANO RAMIREZ MD Sep 14, 2018 07:35
[2018-09-14] MEDS ORDERED: POTASSIUM CHLORIDE 100 ML IVPB ONE (08:00)
[2018-09-14] MEDS: ALBUMIN HUMAN 25% 100 ML IV PRN (08:36)
[2018-09-14] MEDS: ZINC OXIDE 20% 30 GM OINT TOP SCH (09:00)
[2018-09-14] MEDS ORDERED: ALBUMIN HUMAN 25% 100 ML IV STA (09:25)
[2018-09-14] MEDS: HEPARIN 1000 UNITS/ML 10 ML INJ CATHETER SCH (10:46)
--- NOTE | 2018-09-14 12:11 | CONS ---
Consult Date/Type/Reason Admit Date/Time Sep 12, 2018 at 12:05 Initial Consult Date 09/13/18 Type of Consult Pulmonary Requesting Provider: RUBÉN BENITO MD Date/Time of Note DATE: 09/14/18 TIME: 12:10 Subjective No changes, remains stable. Objective Vital Signs Date Temp Pulse Resp B/P (MAP) Pulse Ox O2 O2 Flow FiO2 Time Delivery Rate 09/14/18 63 18 108/59 100 Mechanical 11:39 (75) Ventilator 09/14/18 35 09:20 09/14/18 98.1 08:00 Intake and Output 09/13/18 09/13/18 09/14/18 1414:59 22:59 06:59 IntakeIntake Total 580 ml 580 ml 620 ml OutputOutput Total 250 ml 200 ml BalanceBalance 580 ml 330 ml 420 ml Exam PHYSICAL EXAMINATION: GENERAL: Elderly-appearing gentleman on mechanical ventilation. He appears comfortable at rest, no acute distress. VITAL SIGNS: NECK: Trach site clean and intact. CARDIAC: S1, S2, no added sounds or murmurs. CHEST: Diminished air entry bilaterally. ABDOMEN: Soft, nontender. No guarding or rebound. EXTREMITIES: No cyanosis, clubbing or edema. NEUROLOGIC: Generalized weakness. Vent Setting Ventilator Support Mode: AC Fraction of Inspired Oxygen pe: 35 Positive End Expiratory Pressu: 5.0 Results/Medications Result Diagram: 09/14/1852209/14/18522 Results 24 hrs Laboratory Tests Test 09/13/18 13:51 09/14/18 05:23 Lab Scanned Report BLOOD TRANSFUSION White Blood Count 5.6 Red Blood Count 2.46 L Hemoglobin 7.9 L Hematocrit 24.8 L Mean Corpuscular Volume 100.8 Mean Corpuscular Hemoglobin 32.1 Mean Corpuscular Hemoglobin Concent 31.9 L Red Cell Distribution Width 24.1 H Platelet Count 40 L Mean Platelet Volume Immature Granulocytes % 7.300 H Neutrophils % Segmented Neutrophils % (Manual) 38 L Band Neutrophils % (Manual) 42 H Lymphocytes % Lymphocytes % (Manual) 6 L Reactive Lymphocytes % (Manual) 3 H Monocytes % Monocytes % (Manual) 7 Eosinophils % Eosinophils % (Manual) 1 Basophils % Metamyelocytes % (manual) 1 H Myelocytes % (Manual) 2 H Nucleated Red Blood Cells % 15 H Immature Granulocytes # 0.410 H Neutrophils # Neutrophils # (Manual) 2.3 Band Neutrophils # 2.3 H Lymphocytes (Manual) 0.3 L Lymphocytes # Reactive Lymphocytes # 0.1 H Monocytes # Monocytes # (Manual) 0.3 Eosinophils # Basophils # Metamyelocytes # 0.0 Myelocytes # 0.1 H Nucleated Red Blood Cells # Toxic Granulation 1+ Platelet Estimate SIG DECREASED Giant Platelets 5 H Polychromasia 2+ Poikilocytosis 2+ Anisocytosis 1+ Macrocytosis 1+ Target Cells 1+ Tear Drop Cells 1+ Ovalocytes 1+ Absolute Reticulocyte Count 0.061 Percent Reticulocyte Count 2.4 H Sodium Level 137 Potassium Level 3.2 L Chloride Level 98 Carbon Dioxide Level 23 Anion Gap 16 H Blood Urea Nitrogen 118 H Creatinine 2.92 H Est Glomerular Filtrat Rate mL/min Glucose Level 154 Calcium Level 7.6 L Phosphorus Level 3.5 Magnesium Level 2.5 Iron Level 31 L Total Iron Binding Capacity 156 L Percent Iron Saturation 20 L Ferritin 1810.0 H Total Bilirubin 0.0 L Direct Bilirubin 0.00 Indirect Bilirubin 0.0 Aspartate Amino Transf (AST/SGOT) 59 H Alanine Aminotransferase (ALT/SGPT) 42 Alkaline Phosphatase 121 Total Protein 4.4 L Albumin 1.8 L Globulin 2.60 Albumin/Globulin Ratio 0.69 Vitamin B12 Level > 1000 H Folate > 20.0 H Medications Current Medications Influenza Virus Vaccine Quadrival (Fluzone) 0.5 ml ONCE ONCE IM* ; Start 09/15/18 at 09:00; Stop 09/15/18 at 09:01 Albuterol/ Ipratropium (Duoneb) 3 ml Q4H RESP THERAPY PRN HHN SHORTNESS OF BREATH; Start 09/12/18 at 20:30 Ascorbic Acid (Vitamin C) 250 mg DAILY GTB Last administered on 09/13/18at 09 :46; Admin Dose 250 MG; Start 09/13/18 at 09:00 Collagenase (Santyl) 1 applic BID TOP Last administered on 09/13/18at 21:27; Admin Dose 1 APPLIC; Start 09/13/18 at 09:00 Docusate Sodium (Colace Liquid Cup) 50 mg BID GTB Last administered on 09/13/18at 21:27; Admin Dose 50 MG; Start 09/13/18 at 09:00 Ertapenem 0.5 gm/ Sodium Chloride 100 ml @ 200 mls/hr Q24H IVPB Last administered on 09/13/18 21:28; Admin Dose 200 MLS/HR; Start 09/12/18 at 22:00; Stop 09/17/18 at 21:59 Escitalopram Oxalate (Lexapro) 10 mg DAILY GTB Last administered on 09/13/18 09:46; Admin Dose 10 MG; Start 09/13/18 at 09:00 Finasteride (Proscar) 5 mg DAILY GTB Last administered on 09/13/18 09:44; Admin Dose 5 MG; Start 09/13/18 at 09:00 Acetaminophen/ Hydrocodone Bitart ([place] (5/325)) 1 tab Q6H PRN PO MODERATE PA IN LEVEL 4-6; Start 09/12/18 at 21:30 Lorazepam (Ativan) 0.5 mg Q6H PRN GTB ANXIETY Last administered on 09/13/18 17:47; Admin Dose 0.5 MG; Start 09/12/18 at 21:30 Multivit/Ca Carb/ B Cmplx/FA/Prenat (Ofe-Mine) 1 tab DAILY GTB Last administered on 09/13/18 09:47; Admin Dose 1 TAB; Start 09/13/18 at 09:00 Ondansetron HCl (Zofran Tab) 4 mg Q6H PRN GTB NAUSEA AND/OR VOMITING; Start 09/12/18 at 21:30 Zinc Oxide (Zinc Oxide Oint) 1 applic DAILY TOP Last administered on 09/13/18 09:46; Admin Dose 1 APPLIC; Start 09/13/18 at 09:00 Pantoprazole (Protonix Iv) 40 mg DAILY@06 IV Last administered on 09/14/18 07:30; Admin Dose 40 MG; Start 09/14/18 at 06:00 Heparin Sodium (Porcine) (Heparin (1000 Units/ml)) 4,000 unit AFTER DIALYSIS CATHETER Last administered on 09/14/18 10:46; Admin Dose 3,100 UNIT; Start 09/13/18 at 16:30 Albumin Human 100 ml @ 100 mls/hr WITH DIALYSIS PRN IV SBP <90 DURING DIALYSIS Last administered on 09/14/18 08:36; Admin Dose 100 MLS/HR; Start 09/13/18 at 16:30 Sodium Chloride (NS) -To prime the dialy... DIRECTED FOR HD PRN IV HD; Start 09/13/18 at 16:30 Ferric Sodium Gluconate Complex 125 mg/Sodium Chloride 110 ml @ 110 mls/hr DAILY@1300 IVPB ; Start 09/14/18 at 13:00; Stop 09/18/18 at 13:59 Epoetin Tim (Epogen (Esrd)) 8,000 units TuThSa@17 SC Last administered on 09/13/18at 17:48; Admin Dose 8,000 UNITS; Start 09/13/18 at 17:00 Assessment/Plan Hospital Course (Demo Recall) IMPRESSION 1. Recent urinary tract infection. 2. Significant anemia with a history of gastrointestinal bleeding. 3. Recurrent pneumonias with tracheostomy. 4. End-stage renal failure on hemodialysis. Plan: 1. Continued broad spectrum antibiotics. 2. Transfusion of packed red blood cells. Monitor h/h 3. Gastrointestinal evaluation for ongoing gastrointestinal bleed. 4. Iron replacement. 5. Deep venous thrombosis and GI prophylaxis. SPENSER RICO MD, [facility] Sep 14, 2018 12:11
[2018-09-14] MEDS: ESCITALOPRAM 10 MG TAB GTB SCH (12:14)
[2018-09-14] MEDS: DOCUSATE SODIUM 10 MG/ML (10ML CUP) GTB SCH ×2 (12:14→21:20)
[2018-09-14] MEDS: MULTIVIT/CA CARB/B CMPLX/FA TAB GTB SCH (12:14)
[2018-09-14] MEDS: COLLAGENASE 5 GM (UD JAR) TOP SCH ×2 (12:21→21:20)
[2018-09-14] MEDS: BALSAM PERU/CASTOR OIL 60 GM TUBE TOP SCH (12:21)
[2018-09-14] MEDS: ASCORBIC ACID 250 MG TAB GTB SCH (12:50)
[2018-09-14] MEDS: FINASTERIDE 5 MG TAB GTB SCH (12:50)
[2018-09-14] MEDS ORDERED: SOD FERRIC GLUC COMPLX 125 MG in SOD CHLORIDE 0.9% 100 ML IVPB SCH (13:00)
--- NOTE | 2018-09-14 13:33 | PN ---
Date/Time of Note Date/Time of Note DATE: 09/14/18 TIME: 13:32 Assessment/Plan VTE Prophylaxis Risk score (from Nsg)>0 risk: 10 SCD applied (from Nsg): Yes Lines/Catheters IV Catheter Type (from Nrs): Peripheral IV Urinary Cath still in place: No Assessment/Plan Assessment/Plan 1. Pancytopenia. The patient does have history of recurrent gastrointestinal bleed. The patient has been given 1 unit of PRBC in the ER and we will obtain followup CBC. A GI consult from Dr. Hedrick has been requested. 2. Pancytopenia. We will obtain hematology consult from Dr. Hess for further evaluation and management of pancytopenia. 3. Coronary artery disease, status post PCI. Unfortunately, the patient cannot be given aspirin or Plavix due to history of recurrent gastrointestinal bleed; however the patient's blood pressure is also between 90s to 120s. We will hold off on any beta mark at this time. 4. Respiratory failure. Continue vent support. Wean as tolerated. We will request pulmonary consultation. 5. Depression. Continue Lexapro. 6. Benign prostatic hypertrophy. Continue Proscar. 7. 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 Continue Prevacid. 8. Sacral decubitus. Continue local wound care. 9. Anemia of chronic disease with history of slow gastrointestinal blood loss due to arteriovenous malformation. We will also continue local wound care for chronic sacral decubitus. 10. End-stage renal disease due to recent acute on chronic kidney disease. I spoke with Dr. Vinh Mari for dialysis. The patient does have hypokalemia for which potassium has been replaced. 11. Dysphagia. Continue G-tube feeding. Further recommendation will depend on hospital course. Result Diagram: 09/14/18 0509/14/18522 Results 24hrs Laboratory Tests Test 09/13/18 13:51 09/14/18 05:23 Lab Scanned Report BLOOD TRANSFUSION White Blood Count 5.6 Red Blood Count 2.46 L Hemoglobin 7.9 L Hematocrit 24.8 L Mean Corpuscular Volume 100.8 Mean Corpuscular Hemoglobin 32.1 Mean Corpuscular Hemoglobin Concent 31.9 L Red Cell Distribution Width 24.1 H Platelet Count 40 L Mean Platelet Volume Immature Granulocytes % 7.300 H Neutrophils % Segmented Neutrophils % (Manual) 38 L Band Neutrophils % (Manual) 42 H Lymphocytes % Lymphocytes % (Manual) 6 L Reactive Lymphocytes % (Manual) 3 H Monocytes % Monocytes % (Manual) 7 Eosinophils % Eosinophils % (Manual) 1 Basophils % Metamyelocytes % (manual) 1 H Myelocytes % (Manual) 2 H Nucleated Red Blood Cells % 15 H Immature Granulocytes # 0.410 H Neutrophils # Neutrophils # (Manual) 2.3 Band Neutrophils # 2.3 H Lymphocytes (Manual) 0.3 L Lymphocytes # Reactive Lymphocytes # 0.1 H Monocytes # Monocytes # (Manual) 0.3 Eosinophils # Basophils # Metamyelocytes # 0.0 Myelocytes # 0.1 H Nucleated Red Blood Cells # Toxic Granulation 1+ Platelet Estimate SIG DECREASED Giant Platelets 5 H Polychromasia 2+ Poikilocytosis 2+ Anisocytosis 1+ Macrocytosis 1+ Target Cells 1+ Tear Drop Cells 1+ Ovalocytes 1+ Absolute Reticulocyte Count 0.061 Percent Reticulocyte Count 2.4 H Sodium Level 137 Potassium Level 3.2 L Chloride Level 98 Carbon Dioxide Level 23 Anion Gap 16 H Blood Urea Nitrogen 118 H Creatinine 2.92 H Est Glomerular Filtrat Rate mL/min Glucose Level 154 Calcium Level 7.6 L Phosphorus Level 3.5 Magnesium Level 2.5 Iron Level 31 L Total Iron Binding Capacity 156 L Percent Iron Saturation 20 L Ferritin 1810.0 H Total Bilirubin 0.0 L Direct Bilirubin 0.00 Indirect Bilirubin 0.0 Aspartate Amino Transf (AST/SGOT) 59 H Alanine Aminotransferase (ALT/SGPT) 42 Alkaline Phosphatase 121 Total Protein 4.4 L Albumin 1.8 L Globulin 2.60 Albumin/Globulin Ratio 0.69 Vitamin B12 Level > 1000 H Folate > 20.0 H Exam/Review of Systems Exam Vitals Vital Signs Date Temp Pulse Resp B/P (MAP) Pulse Ox O2 O2 Flow FiO2 Time Delivery Rate 09/14/18 62 12:30 09/14/18 98.1 18 101/59 99 12:10 (73) 09/14/18 Mechanical 11:39 Ventilator 09/14/18 35 11:05 Intake and Output 09/13/18 09/13/18 09/14/18 1515:00 23:00 07:00 IntakeIntake Total 580 ml 580 ml 560 ml OutputOutput Total 250 ml 200 ml BalanceBalance 580 ml 330 ml 360 ml Results Results 24hrs Laboratory Tests Test 09/13/18 13:51 09/14/18 05:23 Lab Scanned Report BLOOD TRANSFUSION White Blood Count 5.6 Red Blood Count 2.46 L Hemoglobin 7.9 L Hematocrit 24.8 L Mean Corpuscular Volume 100.8 Mean Corpuscular Hemoglobin 32.1 Mean Corpuscular Hemoglobin Concent 31.9 L Red Cell Distribution Width 24.1 H Platelet Count 40 L Mean Platelet Volume Immature Granulocytes % 7.300 H Neutrophils % Segmented Neutrophils % (Manual) 38 L Band Neutrophils % (Manual) 42 H Lymphocytes % Lymphocytes % (Manual) 6 L Reactive Lymphocytes % (Manual) 3 H Monocytes % Monocytes % (Manual) 7 Eosinophils % Eosinophils % (Manual) 1 Basophils % Metamyelocytes % (manual) 1 H Myelocytes % (Manual) 2 H Nucleated Red Blood Cells % 15 H Immature Granulocytes # 0.410 H Neutrophils # Neutrophils # (Manual) 2.3 Band Neutrophils # 2.3 H Lymphocytes (Manual) 0.3 L Lymphocytes # Reactive Lymphocytes # 0.1 H Monocytes # Monocytes # (Manual) 0.3 Eosinophils # Basophils # Metamyelocytes # 0.0 Myelocytes # 0.1 H Nucleated Red Blood Cells # Toxic Granulation 1+ Platelet Estimate SIG DECREASED Giant Platelets 5 H Polychromasia 2+ Poikilocytosis 2+ Anisocytosis 1+ Macrocytosis 1+ Target Cells 1+ Tear Drop Cells 1+ Ovalocytes 1+ Absolute Reticulocyte Count 0.061 Percent Reticulocyte Count 2.4 H Sodium Level 137 Potassium Level 3.2 L Chloride Level 98 Carbon Dioxide Level 23 Anion Gap 16 H Blood Urea Nitrogen 118 H Creatinine 2.92 H Est Glomerular Filtrat Rate mL/min Glucose Level 154 Calcium Level 7.6 L Phosphorus Level 3.5 Magnesium Level 2.5 Iron Level 31 L Total Iron Binding Capacity 156 L Percent Iron Saturation 20 L Ferritin 1810.0 H Total Bilirubin 0.0 L Direct Bilirubin 0.00 Indirect Bilirubin 0.0 Aspartate Amino Transf (AST/SGOT) 59 H Alanine Aminotransferase (ALT/SGPT) 42 Alkaline Phosphatase 121 Total Protein 4.4 L Albumin 1.8 L Globulin 2.60 Albumin/Globulin Ratio 0.69 Vitamin B12 Level > 1000 H Folate > 20.0 H Medications Medication Current Medications Influenza Virus Vaccine Quadrival (Fluzone) 0.5 ml ONCE ONCE IM* ; Start 09/15/18 at 09:00; Stop 09/15/18 at 09:01 Albuterol/ Ipratropium (Duoneb) 3 ml Q4H RESP THERAPY PRN HHN SHORTNESS OF BREATH; Start 09/12/18 at 20:30 Ascorbic Acid (Vitamin C) 250 mg DAILY GTB Last administered on 09/14/18 12:50; Admin Dose 250 MG; Start 09/13/18 at 09:00 Collagenase (Santyl) 1 applic BID TOP Last administered on 09/14/18 12:21; Admin Dose 1 APPLIC; Start 09/13/18 at 09:00 Docusate Sodium (Colace Liquid Cup) 50 mg BID GTB Last administered on 09/14/18 12:14; Admin Dose 50 MG; Start 09/13/18 at 09:00 Ertapenem 0.5 gm/ Sodium Chloride 100 ml @ 200 mls/hr Q24H IVPB Last administered on 09/13/18 21:28; Admin Dose 200 MLS/HR; Start 09/12/18 at 22:00; Stop 09/17/18 at 21:59 Escitalopram Oxalate (Lexapro) 10 mg DAILY GTB Last administered on 09/14/18 12:14; Admin Dose 10 MG; Start 09/13/18 at 09:00 Finasteride (Proscar) 5 mg DAILY GTB Last administered on 09/14/18 12:50; Admin Dose 5 MG; Start 09/13/18 at 09:00 Acetaminophen/ Hydrocodone Bitart ([place] (5/325)) 1 tab Q6H PRN PO MODERATE PAIN LEVEL 4-6; Start 09/12/18 at 21:30 Lorazepam (Ativan) 0.5 mg Q6H PRN GTB ANXIETY Last administered on 09/13/18at 17:47; Admin Dose 0.5 MG; Start 09/12/18 at 21:30 Multivit/Ca Carb/ B Cmplx/FA/Prenat (Ofe-Mine) 1 tab DAILY GTB Last administered on 09/14/18 12:14; Admin Dose 1 TAB; Start 09/13/18 at 09:00 Ondansetron HCl (Zofran Tab) 4 mg Q6H PRN GTB NAUSEA AND/OR VOMITING; Start 09/12/18 at 21:30 Zinc Oxide (Zinc Oxide Oint) 1 applic DAILY TOP Last administered on 09/13/18 09:46; Admin Dose 1 APPLIC; Start 09/13/18 at 09:00 Pantoprazole (Protonix Iv) 40 mg DAILY@06 IV Last administered on 09/14/18at 07:30; Admin Dose 40 MG; Start 09/14/18 at 06:00 Heparin Sodium (Porcine) (Heparin (1000 Units/ml)) 4,000 unit AFTER DIALYSIS CATHETER Last administered on 09/14/18 10:46; Admin Dose 3,100 UNIT; Start at 16:30 Albumin Human 100 ml @ 100 mls/hr WITH DIALYSIS PRN IV SBP <90 DURING DIALYSIS Last administered on 09/14/18 08:36; Admin Dose 100 MLS/HR; Start 09/13/18 at 16:30 Sodium Chloride (NS) -To prime the dialy... DIRECTED FOR HD PRN IV HD; Start 09/13/18 at 16:30 Ferric Sodium Gluconate Complex 125 mg/Sodium Chloride 110 ml @ 110 mls/hr DAILY@1300 IVPB Last administered on 09/14/18at 12:56; Admin Dose 110 MLS/HR; Start 09/14/18 at 13:00; Stop 09/18/18 at 13:59 Epoetin Tim (Epogen (Esrd)) 8,000 units TuThSa@17 SC Last administered on 09/13/18at 17:48; Admin Dose 8,000 UNITS; Start 09/13/18 at 17:00 JENNIFER RICHARD Sep 14, 2018 13:33
--- NOTE | 2018-09-14 14:04 | CONS ---
Consultation Date/Type/Reason Admit Date/Time Sep 12, 2018 at 12:05 Type of Consult Cardiology Date/Time of Note DATE: 09/14/18 TIME: 14:03 Hx of Present Illness Paced at 60s - jey is likely counting error by monitor - full note dictated # [id number] Past Medical History Home Meds Reported Medications Ondansetron Hcl* (Ondansetron Hcl* Liq) 4 Mg/5 Ml Solution, 4 MG GTB Q6H PRN for NAUSEA AND/OR VOMITING, ML 09/12/18 Zinc Oxide* (Zinc Oxide*) 20%-30GM Oint, 1 APPLIC TOP DAILY, TUB 09/12/18 Ascorbic Acid* (Vitamin C*) 500 Mg Capsule.sa, 250 MG GTB DAILY, CAP 09/12/18 Multivit/Ca Carb/B Cmplx/Fa* (Ofe-Mine*) 1 Tab Tab, 1 TAB GTB DAILY, TAB 09/12/18 Protein Supplement (Promod) 946 Ml Liquid, 30 ML GTB BID 09/12/18 Sodium Chloride (Saline Nasal Echo) 30 Ml Echo, 2 SPRAYS NASAL DAILY, SPRAY 09/12/18 Hydrocodone/Acetaminophen ([place] 5-325 Tablet) 1 Each Tablet, 1 EACH PO Q6 PRN for SEVERE PAIN LEVEL 7-10, TAB 09/12/18 Escitalopram Oxalate* (Lexapro*) 10 Mg Tablet, 10 MG GTB DAILY, #30 TAB 09/12/18 Ipratropium-Albuterol (Ipratropium-Albuterol) 0.5-3 Mg/3 Ml Ampul.neb, 3 ML INHALATION Q4 PRN for ELEVATED BLOOD PRESSURE, #30 VIAL 09/12/18 Hydralazine Hcl* (Hydralazine Hcl*) 10 Mg Tablet, 20 MG GTB Q4 PRN for ELEVATED BLOOD PRESSURE, #60 TAB HOLD FOR SBP<110 OR HR<60 09/12/18 Glucagon,Human Recombinant (Glucagen) 1 Mg/1 Ml Vial, 1 MG IJ DAILY, VIAL 09/12/18 Ertapenem Sodium (Invanz) 1 Gm Vial, 500 MG IM DAILY for 6 Days, VIAL START RX ON 09-11-18 TO 09-17-18 09/12/18 Lansoprazole* (Lansoprazole*) 30 Mg Capsule., 30 MG GTB DAILY, CAP 08/28/18 Epoetin genesis* (Epogen*) 4,000 Unit/1 Ml Vial, 8000 UNIT SC [place]WED[place]RI, VIAL 08/28/18 Lorazepam* (Lorazepam*) 1 Mg Tablet, 1 MG NGT Q6 PRN for ANXIETY, #60 TAB 08/13/18 Docusate Sodium* (Docusate Sodium* Liq) 50 Mg/5 Ml Liquid, 100 MG GTB BID, ML 08/13/18 Collagenase* (Santyl*) 30 Gm Oint..gm., 1 APPLIC TOP BID PRN for PRN, #1 TUB 08/13/18 Balsam John/[place] Oil (Venelex Ointment) 60 Gm Oint..gm., 1 APPLIC TOP NEEDED PRN for PRN, #1 TUB 08/13/18 Allopurinol* (Allopurinol*) 100 Mg Tablet, 100 MG GTB DAILY, TAB 08/13/18 Finasteride* (Finasteride*) 5 Mg Tablet, 5 MG GTB DAILY, TAB 07/18/18 Discontinued Reported Medications Ondansetron Hcl* (Ondansetron Hcl* Liq) 4 Mg/5 Ml Solution, 4 MG IV* Q6H PRN for NAUSEA AND/OR VOMITING, ML 08/28/18 Nifedipine* (Procardia*) 20 Mg Cap, 20 MG PO Q8, CAP 08/28/18 Guaifenesin* (Robitussin*) 100 Mg/5 Ml Syrup, 200 MG GTB Q8 PRN for COUGH, ML 08/28/18 Albuterol Sulfate* (Albuterol Sulfate* Neb) 0.083%-3 Ml Neb, 2.5 MG NEB Q4 PRN for WHEEZING AND SOB, #30 VIAL 08/28/18 Acetaminophen* (Acetaminophen* Susp) 325 Mg/10.15 Ml Solution, 650 MG NGT Q6 PRN for PAIN, ML 08/28/18 Insulin Aspart* (Novolog Insulin Pen*) 100 Unit/Ml Soln, 0 SC .SLIDING SCALE AC, EA SLIDING SCALE 0-120 = 0 UNITS 121-150 = 0 UNITS 151-200 = 1 UNITS 201-250 = 2 UNITS 251-300 = 3 UNITS 301-350 = 4 UNITS 351-400 = 5 UNITS CALL PROVIDER IF OVER 400 AND GIVE 6 UNITS 08/13/18 Nystatin (Nystatin) 100,000 Unit/1 Ml Oral.susp, 10 ML PO TID, #60 ML 08/13/18 Morphine Sulfate* (Morphine* Liq) 10 Mg/5 Ml Solution, 6 MG NGT Q4H PRN for PAIN, ML 08/13/18 Hydralazine Hcl* (Apresoline* Pediatric IV Syringe) 1 Mg/Ml Soln, 20 MG IV Q4 PRN for ELEVATED BLOOD PRESSURE, EA INFUSE OVER 3-5 MIN MAX INFUSION 5MG/MIN CHECK BP UNTIL STABLE 08/13/18 Fentanyl Citrate/Pf (Sublimaze) 50 Mcg/1 Ml Ampul, 25 MCG IV* Q2HWA PRN for PAIN, AMP 08/13/18 Famotidine* (Famotidine*) 20 Mg Tablet, 20 MG NGT DAILY, #30 TAB 08/13/18 Doxazosin Mesylate* (Doxazosin Mesylate*) 4 Mg Tablet, 4 MG NGT HS, TAB 07/18/18 Hydrochlorothiazide* (Hydrochlorothiazide*) 12.5 Mg Tablet, 12.5 MG NGT DAILY, #30 TAB 07/18/18 Pantoprazole* (Protonix*) 40 Mg Tablet.dr, 40 MG NGT DAILY, TAB 02/13/18 Atorvastatin* (Atorvastatin*) 40 Mg Tablet, 40 MG NGT QHS, #30 TAB 02/13/18 Medications Current Medications Influenza Virus Vaccine Quadrival (Fluzone) 0.5 ml ONCE ONCE IM* ; Start 09/15/18 at 09:00; Stop 09/15/18 at 09:01 Albuterol/ Ipratropium (Duoneb) 3 ml Q4H RESP THERAPY PRN HHN SHORTNESS OF BREATH; Start 09/12/18 at 20:30 Ascorbic Acid (Vitamin C) 250 mg DAILY GTB Last administered on 09/14/18at 12:50; Admin Dose 250 MG; Start 09/13/18 at 09:00 Collagenase (Santyl) 1 applic BID TOP Last administered on 09/14/18at 12:21; Admin Dose 1 APPLIC; Start 09/13/18 at 09:00 Docusate Sodium (Colace Liquid Cup) 50 mg BID GTB Last administered on 9at 12:14; Admin Dose 50 MG; Start 09/13/18 at 09:00 Ertapenem 0.5 gm/ Sodium Chloride 100 ml @ 200 mls/hr Q24H IVPB Last administered on 09/13/18 21:28; Admin Dose 200 MLS/HR; Start 09/12/18 at 22:00; Stop 09/17/18 at 21:59 Escitalopram Oxalate (Lexapro) 10 mg DAILY GTB Last administered on 09/14/18 12:14; Admin Dose 10 MG; Start 09/13/18 at 09:00 Finasteride (Proscar) 5 mg DAILY GTB Last administered on 09/14/18 12:50; Admin Dose 5 MG; Start 09/13/18 at 09:00 Acetaminophen/ Hydrocodone Bitart ([place] (5/325)) 1 tab Q6H PRN PO MODERATE PAIN LEVEL 4-6; Start 09/12/18 at 21:30 Lorazepam (Ativan) 0.5 mg Q6H PRN GTB ANXIETY Last administered on 09/13/18 17:47; Admin Dose 0.5 MG; Start 09/12/18 at 21:30 Multivit/Ca Carb/ B Cmplx/FA/Prenat (Ofe-Imne) 1 tab DAILY GTB Last administered on 09/14/18 12:14; Admin Dose 1 TAB; Start 09/13/18 at 09:00 Ondansetron HCl (Zofran Tab) 4 mg Q6H PRN GTB NAUSEA AND/OR VOMITING; Start 09/12/18 at 21:30 Zinc Oxide (Zinc Oxide Oint) 1 applic DAILY TOP Last administered on 09/13/18 09:46; Admin Dose 1 APPLIC; Start 09/13/18 at 09:00 Pantoprazole (Protonix Iv) 40 mg DAILY@06 IV Last administered on 09/14/18 07:30; Admin Dose 40 MG; Start 09/14/18 at 06:00 Heparin Sodium (Porcine) (Heparin (1000 Units/ml)) 4,000 unit AFTER DIALYSIS CATHETER Last administered on 09/14/18 10:46; Admin Dose 3,100 UNIT; Start 09/13/18 at 16:30 Albumin Human 100 ml @ 100 mls/hr WITH DIALYSIS PRN IV SBP <90 DURING DIALYSIS Last administered on 2/17/19at 08:36; Admin Dose 100 MLS/HR; Start 09/13/18 at 16:30 Sodium Chloride (NS) -To prime the dialy... DIRECTED FOR HD PRN IV HD; Start 09/13/18 at 16:30 Ferric Sodium Gluconate Complex 125 mg/Sodium Chloride 110 ml @ 110 mls/hr DAILY@1300 IVPB Last administered on 09/14/18at 12:56; Admin Dose 110 MLS/HR; Start 09/14/18 at 13:00; Stop 09/18/18 at 13:59 Epoetin Genesis (Epogen (Esrd)) 8,000 units TuThSa@17 SC Last administered on 09/13/18at 17:48; Admin Dose 8,000 UNITS; Start 09/13/18 at 17:00 Allergies: Coded Allergies: No Known Allergy (Unverified , 08/28/18) Past Surgical History Past Surgical Hx: other (+ tracheostomy + g tube in place ) Social History Alcohol Use: none Smoking Status: Never smoker Exam/Review of Systems Vital Signs Vitals Vital Signs Date Temp Pulse Resp B/P (MAP) Pulse Ox O2 O2 Flow FiO2 Time Delivery Rate 09/14/18 62 12:30 09/14/18 98.1 18 101/59 99 12:10 (73) 09/14/18 Mechanical 11:39 Ventilator 09/14/18 35 11:05 Intake and Output 09/13/18 09/13/18 09/14/18 1515:00 23:00 07:00 IntakeIntake Total 580 ml 580 ml 560 ml OutputOutput Total 250 ml 200 ml BalanceBalance 580 ml 330 ml 360 ml Labs Result Diagram: 09/14/1852209/14/18522 Results 24hrs Laboratory Tests Test 09/14/18 05:23 White Blood Count 5.6 Red Blood Count 2.46 L Hemoglobin 7.9 L Hematocrit 24.8 L Mean Corpuscular Volume 100.8 Mean Corpuscular Hemoglobin 32.1 Mean Corpuscular Hemoglobin Concent 31.9 L Red Cell Distribution Width 24.1 H Platelet Count 40 L Mean Platelet Volume Immature Granulocytes % 7.300 H Neutrophils % Segmented Neutrophils % (Manual) 38 L Band Neutrophils % (Manual) 42 H Lymphocytes % Lymphocytes % (Manual) 6 L Reactive Lymphocytes % (Manual) 3 H Monocytes % Monocytes % (Manual) 7 Eosinophils % Eosinophils % (Manual) 1 Basophils % Metamyelocytes % (manual) 1 H Myelocytes % (Manual) 2 H Nucleated Red Blood Cells % 15 H Immature Granulocytes # 0.410 H Neutrophils # Neutrophils # (Manual) 2.3 Band Neutrophils # 2.3 H Lymphocytes (Manual) 0.3 L Lymphocytes # Reactive Lymphocytes # 0.1 H Monocytes # Monocytes # (Manual) 0.3 Eosinophils # Basophils # Metamyelocytes # 0.0 Myelocytes # 0.1 H Nucleated Red Blood Cells # Toxic Granulation 1+ Platelet Estimate SIG DECREASED Giant Platelets 5 H Polychromasia 2+ Poikilocytosis 2+ Anisocytosis 1+ Macrocytosis 1+ Target Cells 1+ Tear Drop Cells 1+ Ovalocytes 1+ Absolute Reticulocyte Count 0.061 Percent Reticulocyte Count 2.4 H Sodium Level 137 Potassium Level 3.2 L Chloride Level 98 Carbon Dioxide Level 23 Anion Gap 16 H Blood Urea Nitrogen 118 H Creatinine 2.92 H Est Glomerular Filtrat Rate mL/min Glucose Level 154 Calcium Level 7.6 L Phosphorus Level 3.5 Magnesium Level 2.5 Iron Level 31 L Total Iron Binding Capacity 156 L Percent Iron Saturation 20 L Ferritin 1810.0 H Total Bilirubin 0.0 L Direct Bilirubin 0.00 Indirect Bilirubin 0.0 Aspartate Amino Transf (AST/SGOT) 59 H Alanine Aminotransferase (ALT/SGPT) 42 Alkaline Phosphatase 121 Total Protein 4.4 L Albumin 1.8 L Globulin 2.60 Albumin/Globulin Ratio 0.69 Vitamin B12 Level > 1000 H Folate > 20.0 H Medications Medications Current Medications Influenza Virus Vaccine Quadrival (Fluzone) 0.5 ml ONCE ONCE IM* ; Start 09/15/18 at 09:00; Stop 09/15/18 at 09:01 Albuterol/ Ipratropium (Duoneb) 3 ml Q4H RESP THERAPY PRN HHN SHORTNESS OF BREATH; Start 09/12/18 at 20:30 Ascorbic Acid (Vitamin C) 250 mg DAILY GTB Last administered on 09/14/18at 12:50; Admin Dose 250 MG; Start 09/13/18 at 09:00 Collagenase (Santyl) 1 applic BID TOP Last administered on 09/14/18at 12:21; Admin Dose 1 APPLIC; Start 09/13/18 at 09:00 Docusate Sodium (Colace Liquid Cup) 50 mg BID GTB Last administered on 12:14; Admin Dose 50 MG; Start 09/13/18 at 09:00 Ertapenem 0.5 gm/ Sodium Chloride 100 ml @ 200 mls/hr Q24H IVPB Last administered on 09/13/18 21:28; Admin Dose 200 MLS/HR; Start 09/12/18 at 22:00; Stop 09/17/18 at 21:59 Escitalopram Oxalate (Lexapro) 10 mg DAILY GTB Last administered on 09/14/18 12:14; Admin Dose 10 MG; Start 09/13/18 at 09:00 Finasteride (Proscar) 5 mg DAILY GTB Last administered on 09/14/18 12:50; Admin Dose 5 MG; Start 09/13/18 at 09:00 Acetaminophen/ Hydrocodone Bitart ([place] (5/325)) 1 tab Q6H PRN PO MODERATE PAIN LEVEL 4-6; Start 09/12/18 at 21:30 Lorazepam (Ativan) 0.5 mg Q6H PRN GTB ANXIETY Last administered on 09/13/18 17:47; Admin Dose 0.5 MG; Start 09/12/18 at 21:30 Multivit/Ca Carb/ B Cmplx/FA/Prenat (Ofe-Mine) 1 tab DAILY GTB Last administered on 09/14/18 12:14; Admin Dose 1 TAB; Start 09/13/18 at 09:00 Ondansetron HCl (Zofran Tab) 4 mg Q6H PRN GTB NAUSEA AND/OR VOMITING; Start 09/12/18 at 21:30 Zinc Oxide (Zinc Oxide Oint) 1 applic DAILY TOP Last administered on 09/13/18 09:46; Admin Dose 1 APPLIC; Start 09/13/18 at 09:00 Pantoprazole (Protonix Iv) 40 mg DAILY@06 IV Last administered on 09/14/18 07:30; Admin Dose 40 MG; Start 09/14/18 at 06:00 Heparin Sodium (Porcine) (Heparin (1000 Units/ml)) 4,000 unit AFTER DIALYSIS CATHETER Last administered on 09/14/18 10:46; Admin Dose 3,100 UNIT; Start 09/13/18 at 16:30 Albumin Human 100 ml @ 100 mls/hr WITH DIALYSIS PRN IV SBP <90 DURING DIALYSIS Last administered on 09/14/18at 08:36; Admin Dose 100 MLS/HR; Start 09/13/18 at 16:30 Sodium Chloride (NS) -To prime the dialy... DIRECTED FOR HD PRN IV HD; Start 09/13/18 at 16:30 Ferric Sodium Gluconate Complex 125 mg/Sodium Chloride 110 ml @ 110 mls/hr DAILY@1300 IVPB Last administered on 09/14/18at 12:56; Admin Dose 110 MLS/HR; Start 09/14/18 at 13:00; Stop 09/18/18 at 13:59 Epoetin Genesis (Epogen (Esrd)) 8,000 units TuThSa@17 SC Last administered on 09/13/18at 17:48; Admin Dose 8,000 UNITS; Start 09/13/18 at 17:00 WILLIAM OJEDA MD Sep 14, 2018 14:04
[2018-09-14] MEDS: LORAZEPAM 0.5 MG TAB GTB PRN (17:49)
--- NOTE | 2018-09-14 18:08 | CONS ---
DATE OF ADMISSION: 09/12/2018 DATE OF CONSULTATION: 09/14/2018 TYPE OF CONSULTATION: Cardiology. REFERRING PHYSICIAN: Rubén Benito MD REASON FOR EVALUATION: Bradycardia. HISTORY OF PRESENT ILLNESS: Mr. Salinas is an 83-year-old gentleman known to me from multiple prior admi ssions and pacemaker placement with history of hypertension, dyslipidemia, history of coronary artery disease, history of heart block, status post permanent pacemaker, who is chronically debilitated now on the ventilator. The patient came to the hospital for evaluation of febrile illness and diarrhea. I was told that the patient is bradycardic and I came to see the patient. On the monitor, it showe d that his heart rate is 29, but I think that there is an appropriate counting of his pacer spikes on the monitor. The patient's heart rate appears to be in the 60s. He is paced, which is appropriate. His blood pressure is maintained. I think that there is no further evaluation warranted from that particular standpoint. If there is a significant concern or bradycardia, we will consider pacemaker interrogation. Other than that, the patient is extremely ill and debilitated. He is likely with an infectious process. For now, conservative therapy with antibiotic management is noted. The patient is also with some degree of fluid overload in the setting of low albumin and malnutrition state. I t hink overall prognosis is fairly poor. PAST MEDICAL HISTORY: Hypertension, dyslipidemia, history of coronary artery disease, history of pac emaker, history of tracheostomy, history G-tube, history of dialysis. ALLERGIES: NO KNOWN DRUG ALLERGIES. SOCIAL HISTORY: The patient does not smoke, does not drink, does not use any drugs. FAMILY HISTORY: Positive for diabetes. CURRENT MEDICATIONS: Include: 1. ____ 2. Epogen. 3. Pantoprazole. 4. Albumin supplementation. 5. Finasteride. 6. Lorazepam. 7. Ondansetron. 8. Albuterol. He is not on any AV donna agents. REVIEW OF SYSTEMS: The patient is not able to provide but based on the description of the nursing st aff and records review: CONSTITUTIONAL: No fever, chills, febrile illness. HEENT: No changes in vision or hearing. CARDIAC: No chest pain reported. RESPIRATORY: No shortness of breath. GASTROINTESTINAL: No nausea, vomiting. GENITOURINARY: No dysuria, hematuria. NEUROLOGIC: Chronic debilitated state. PHYSICAL EXAMINATION: VITAL SIGNS: Temperature is 98.1, heart rate 60, paced, blood pressure 101/59. 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 HEENT: Head is normocephalic, atraumatic. He has ____. NECK: With tracheostomy. SKIN: Fairly brittle. HEART: Regular with occasional irregularities. LUNGS: Coarse. GENITOURINARY: Intact. EXTREMITIES: Show some edema post-pitting and nonpitting. There are some chronic skin changes. DIAGNOSTIC DATA: ECG read by me shows paced rhythm at 60. LABORATORY DATA: White blood cell count 5.6, hemoglobin 7.9, platelets 40. Sodium 137, potassium 3. 2, his BUN is 118, creatinine 2.9. ASSESSMENT AND PLAN: 1. Bradycardia. He has bradycardia, I believe miscounting by the monitoring system. His heart appe ars to be paced at 60 which is appropriate. For now, conservative therapy is recommended. 2. Coronary artery disease. The patient has history of coronary artery disease. He would not be an invasive candidate now in the setting of low platelets and no further intervention is warranted. Co ntinue to monitor. 3. Respiratory failure. The patient is on ventilator. Continue to adjust medications. 4. Febrile illness. The patient is on antibiotics. Primary team follows. 5. Anemia. Defer to primary team. Blood transfusion if indicated. 6. End-stage renal disease, on hemodialysis. Dr. Mari follows. I would like to thank Dr. Benito for referring this patient for my evaluation. Dictated By: WILLIAM OJEDA MD ML/NTS Conf#: [id number] DID#: [id number] CC: FELICIANO MARI MD; RUBÉN BENITO MD;*EndCC*
--- NOTE | 2018-09-14 18:36 | CONS ---
Assessment/Plan Assessment/Plan Assessment/Plan (Daily) IMPRESSION: 1. Pancytopenia. At this point, no evidence of active GI bleeding. 2. Coronary artery disease status post PCI. 3. Respiratory failure. 4. Benign prostatic hypertrophy. 5. Depression. 6. Sacral decubitus ulcer. 7. End-stage renal disease on dialysis. 8. Thrombocytopenia platelet count is 40,000 in stable PLAN: Send a stool for occult blood. We will monitor for acute GI bleeding. We will also send for retic count to make sure the bone marrow is not suppressed. Continue PPI in the interim. Poor reticulocyte count and patient is a thrombocytopenia, awaiting for hematology consult. If platelet count keeps dropping then we will switch from PPI to H2 mark Consultation Date/Type/Reason Admit Date/Time Sep 12, 2018 at 12:05 Initial Consult Date 09/13/18 Requesting Provider: RUBÉN BENITO MD Date/Time of Note DATE: 09/14/18 TIME: 18:35 24 HR Interval Summary Subjective hx not possible: pt non-verbal Constitutional: no complaints Exam/Review of Systems Exam Vitals Vital Signs Date Temp Pulse Resp B/P (MAP) Pulse Ox O2 O2 Flow FiO2 Time Delivery Rate 09/14/18 60 25 94 35 17:00 09/14/18 98.6 121/57 16:20 (78) 09/14/18 Mechanical 11:39 Ventilator Intake and Output 09/13/18 09/13/18 09/14/18 1414:59 22:59 06:59 IntakeIntake Total 580 ml 580 ml 620 ml OutputOutput Total 250 ml 200 ml BalanceBalance 580 ml 330 ml 420 ml ENMT: nl external ears & nose Cardiovascular: regular rate and rhythm, nl pulses Gastrointestinal: soft, nl liver, spleen, non-tender Musculoskeletal: nl extremities to inspection, nl gait and stance Results Result Diagram: 09/14/1852209/14/18522 Results 24hrs Laboratory Tests Test 09/14/18 05:23 White Blood Count 5.6 Red Blood Count 2.46 L Hemoglobin 7.9 L Hematocrit 24.8 L Mean Corpuscular Volume 100.8 Mean Corpuscular Hemoglobin 32.1 Mean Corpuscular Hemoglobin Concent 31.9 L Red Cell Distribution Width 24.1 H Platelet Count 40 L Mean Platelet Volume Immature Granulocytes % 7.300 H Neutrophils % Segmented Neutrophils % (Manual) 38 L Band Neutrophils % (Manual) 42 H Lymphocytes % Lymphocytes % (Manual) 6 L Reactive Lymphocytes % (Manual) 3 H Monocytes % Monocytes % (Manual) 7 Eosinophils % Eosinophils % (Manual) 1 Basophils % Metamyelocytes % (manual) 1 H Myelocytes % (Manual) 2 H Nucleated Red Blood Cells % 15 H Immature Granulocytes # 0.410 H Neutrophils # Neutrophils # (Manual) 2.3 Band Neutrophils # 2.3 H Lymphocytes (Manual) 0.3 L Lymphocytes # Reactive Lymphocytes # 0.1 H Monocytes # Monocytes # (Manual) 0.3 Eosinophils # Basophils # Metamyelocytes # 0.0 Myelocytes # 0.1 H Nucleated Red Blood Cells # Toxic Granulation 1+ Platelet Estimate SIG DECREASED Giant Platelets 5 H Polychromasia 2+ Poikilocytosis 2+ Anisocytosis 1+ Macrocytosis 1+ Target Cells 1+ Tear Drop Cells 1+ Ovalocytes 1+ Absolute Reticulocyte Count 0.061 Percent Reticulocyte Count 2.4 H Sodium Level 137 Potassium Level 3.2 L Chloride Level 98 Carbon Dioxide Level 23 Anion Gap 16 H Blood Urea Nitrogen 118 H Creatinine 2.92 H Est Glomerular Filtrat Rate mL/min Glucose Level 154 Calcium Level 7.6 L Phosphorus Level 3.5 Magnesium Level 2.5 Iron Level 31 L Total Iron Binding Capacity 156 L Percent Iron Saturation 20 L Ferritin 1810.0 H Total Bilirubin 0.0 L Direct Bilirubin 0.00 Indirect Bilirubin 0.0 Aspartate Amino Transf (AST/SGOT) 59 H Alanine Aminotransferase (ALT/SGPT) 42 Alkaline Phosphatase 121 Total Protein 4.4 L Albumin 1.8 L Globulin 2.60 Albumin/Globulin Ratio 0.69 Vitamin B12 Level > 1000 H Folate > 20.0 H Medications Medication Current Medications Influenza Virus Vaccine Quadrival (Fluzone) 0.5 ml ONCE ONCE IM* ; Start 09/15/18 at 09:00; Stop 09/15/18 at 09:01 Albuterol/ Ipratropium (Duoneb) 3 ml Q4H RESP THERAPY PRN HHN SHORTNESS OF HENRI ATH; Start 09/12/18 at 20:30 Ascorbic Acid (Vitamin C) 250 mg DAILY GTB Last administered on 09/14/18at 12:50; Admin Dose 250 MG; Start 09/13/18 at 09:00 Collagenase (Santyl) 1 applic BID TOP Last administered on 09/14/18 12:21; Admin Dose 1 APPLIC; Start 09/13/18 at 09:00 Docusate Sodium (Colace Liquid Cup) 50 mg BID GTB Last administered on 09/14/18 12:14; Admin Dose 50 MG; Start 09/13/18 at 09:00 Ertapenem 0.5 gm/ Sodium Chloride 100 ml @ 200 mls/hr Q24H IVPB Last administered on 09/13/18 21:28; Admin Dose 200 MLS/HR; Start 09/12/18 at 22:00; Stop 09/17/18 at 21:59 Escitalopram Oxalate (Lexapro) 10 mg DAILY GTB Last administered on 09/14/18 12:14; Admin Dose 10 MG; Start 09/13/18 at 09:00 Finasteride (Proscar) 5 mg DAILY GTB Last administered on 09/14/18 12:50; Admin Dose 5 MG; Start 09/13/18 at 09:00 Acetaminophen/ Hydrocodone Bitart ([place] (5/325)) 1 tab Q6H PRN PO MODERATE PAIN LEVEL 4-6; Start 09/12/18 at 21:30 Lorazepam (Ativan) 0.5 mg Q6H PRN GTB ANXIETY Last administered on 09/14/18 17:49; Admin Dose 0.5 MG; Start 09/12/18 at 21:30 Multivit/Ca Carb/ B Cmplx/FA/Prenat (Ofe-Mine) 1 tab DAILY GTB Last administered on 09/14/18 12:14; Admin Dose 1 TAB; Start 09/13/18 at 09:00 Ondansetron HCl (Zofran Tab) 4 mg Q6H PRN GTB NAUSEA AND/OR VOMITING; Start 09/12/18 at 21:30 Zinc Oxide (Zinc Oxide Oint) 1 applic DAILY TOP Last administered on 09/14/18 09:00; Admin Dose 1 APPLIC; Start 09/13/18 at 09:00 Pantoprazole (Protonix Iv) 40 mg DAILY@06 IV Last administered on 09/14/18 07:30; Admin Dose 40 MG; Start 09/14/18 at 06:00 Heparin Sodium (Porcine) (Heparin (1000 Units/ml)) 4,000 unit AFTER DIALYSIS CATHETER Last administered on 2/17/19at 10:46; Admin Dose 3,100 UNIT; Start 09/13/18 at 16:30 Albumin Human 100 ml @ 100 mls/hr WITH DIALYSIS PRN IV SBP <90 DURING DIALYSIS Last administered on 09/14/18at 08:36; Admin Dose 100 MLS/HR; Start 09/13/18 at 16:30 Sodium Chloride (NS) -To prime the dialy... DIRECTED FOR HD PRN IV HD; Start 09/13/18 at 16:30 Ferric Sodium Gluconate Complex 125 mg/Sodium Chloride 110 ml @ 110 mls/hr DAILY@1300 IVPB Last administered on 09/14/18at 12:56; Admin Dose 110 MLS/HR; Start 09/14/18 at 13:00; Stop 09/18/18 at 13:59 Epoetin Tim (Epogen (Esrd)) 8,000 units TuThSa@17 SC Last administered on 09/13/18at 17:48; Admin Dose 8,000 UNITS; Start 09/13/18 at 17:00 JED SALAS MD Sep 14, 2018 18:36
--- NOTE | 2018-09-14 19:28 | CONS ---
DATE OF ADMISSION: 09/12/2018 DATE OF CONSULTATION: 09/14/2018 REASON FOR EVALUATION: Anemia, thrombocytopenia and leukopenia. HISTORY OF PRESENT ILLNESS: This is an 83-year-old gentleman with a known previous admissions for multiple medical problems including history of coronary artery disease, permanent pacemaker, trac heostomy, coronary artery disease post-PCI, also remote history of hypertension, heart block, prostat e cancer, permanent pacemaker. The patient was admitted to [facility] because of a cute hypoxic respiratory failure secondary to pneumonia, sepsis infection. Hospital course was compl icated by multiple other problems, multiorgan disease including acute kidney injury requiring to be o n hemodialysis in addition to encephalopathy. Oncology was called for evaluation of cytopenias both combination of anemia, thrombocytopenia and leukopenia. No active bleeding at this time. The patien t is attached to ventilator respiratory trach per protocol. No active bleeding. The blood smear enedina ws multiple myelocytes, metamyelocytes promyelocytic cells, immature cells. PAST MEDICAL HISTORY: As mentioned above. MEDICATIONS: As listed. PHYSICAL EXAMINATION: VITAL SIGNS: Temperature 98, respiration of 18, pulse of 62, BP 100/50, not responsive. LUNGS: Rhonchi, mainly on the right more than left. HEART: Normal S1, S2. ABDOMEN: Soft. LABORATORY DATA: Latest labs are as follows: White cell count went up from 4000 to 5.6, hemoglobin from 7 to 8, hematocrit 24, platelet count of 40,000. A few immature cells including metamyelocytes, myelocytes, and nucleated cells, immature granulocytes, bandemia, anisocytosis, poikilocytosis. BUN 118, creatinine 2.9. B12 over 1000, albumin 1.8, AST 59, ALT 42, alkaline phosphatase 121. ASSESSMENT AND PLAN: Elderly gentleman with multiple medical problems including cardiovascular heart disease, respiratory failure, kidney damage, chronic renal failure. 1. Sepsis infection. Pancytopenia, most likely reactive from bone marrow inhibition because of mult iple underlying problems including multiorgan disease. 2. Keep hemoglobin above 7, hematocrit above 21. Keep platelets above 20,000. If the platelet drop s below 20,000 or the patient bleeds, transfuse 1 unit of platelets. 3. Flow cytometry will be ordered for hematological disease, leukemia, and lymphoma. Further recomm endation will be given once the initial workup is complete. The patient will be followed by Dr. Clara Hess starting tomorrow. Dictated By: KATHIA MARSH Conf#: [id number] DID#: [id number]
[2018-09-14] MEDS: ERTAPENEM SODIUM 0.5 GM in SOD CHLORIDE 0.9% 100 ML IVPB SCH (21:20)
[2018-09-14] MEDS: GUAIFENESIN/DM 5ML CUP PO PRN (22:27)
[2018-09-15] VITALS (23 sets, daily range): BP systolic 96–115; BP diastolic 54–75; PULSE 60–64; RESP 14–25
[2018-09-15] MEDS: LORAZEPAM 0.5 MG TAB GTB PRN (01:44)
[2018-09-15] MEDS: GUAIFENESIN/DM 5ML CUP PO PRN ×2 (01:44→05:55)
[2018-09-15] MEDS: PANTOPRAZOLE 40 MG INJ IV SCH (05:55)
--- NOTE | 2018-09-15 08:24 | CONS ---
Assessment/Plan Assessment/Plan Hospital Course (Demo Recall) 1. Sepsis infection. Pancytopenia, most likely reactive from bone marrow inhibition because of multiple underlying problems including multiorgan disease. 2. Keep hemoglobin above 7, hematocrit above 21. Keep platelets above 20,000. If the platelet drops below 20,000 or the patient bleeds, transfuse 1 unit of platelets. Consultation Date/Type/Reason Admit Date/Time Sep 12, 2018 at 12:05 Initial Consult Date 09/13/18 Requesting Provider: RUBÉN BENITO MD Date/Time of Note DATE: 09/15/18 TIME: 08:23 Exam/Review of Systems Exam Vitals Vital Signs Date Temp Pulse Resp B/P (MAP) Pulse Ox O2 O2 Flow FiO2 Time Delivery Rate 09/15/18 98.9 60 20 102/54 99 Mechanical 07:25 (70) Ventilator 09/15/18 35 05:26 Intake and Output 09/14/18 09/14/18 09/15/18 1515:00 23:00 07:00 IntakeIntake Total 100 ml 500 ml 970 ml OutputOutput Total 900 ml 300 ml 500 ml BalanceBalance -800 ml 200 ml 470 ml Results Result Diagram: 09/14/18 0523 09/14/18 0523 Medications Medication Current Medications Influenza Virus Vaccine Quadrival (Fluzone) 0.5 ml ONCE ONCE IM* ; Start 09/15/18 at 09:00; Stop 09/15/18 at 09:01 Albuterol/ Ipratropium (Duoneb) 3 ml Q4H RESP THERAPY PRN HHN SHORTNESS OF BREATH Last administered on 09/14/18at 21:38; Admin Dose 3 ML; Start 09/12/18 at 20:30 Ascorbic Acid (Vitamin C) 250 mg DAILY GTB Last administered on 09/14/18at 12:50; Admin Dose 250 MG; Start 09/13/18 at 09:00 Collagenase (Santyl) 1 applic BID TOP Last administered on 09/14/18at 21:20; Admin Dose 1 APPLIC; Start 09/13/18 at 09:00 Docusate Sodium (Colace Liquid Cup) 50 mg BID GTB Last administered on 09/14/18at 21:20; Admin Dose 50 MG; Start 09/13/18 at 09:00 Ertapenem 0.5 gm/ Sodium Chloride 100 ml @ 200 mls/hr Q24H IVPB Last adm inistered on 09/14/18 21:20; Admin Dose 200 MLS/HR; Start 09/12/18 at 22:00; Stop 09/17/18 at 21:59 Escitalopram Oxalate (Lexapro) 10 mg DAILY GTB Last administered on 09/14/18 12:14; Admin Dose 10 MG; Start 09/13/18 at 09:00 Finasteride (Proscar) 5 mg DAILY GTB Last administered on 09/14/18 12:50; Admin Dose 5 MG; Start 09/13/18 at 09:00 Acetaminophen/ Hydrocodone Bitart ([place] (5/325)) 1 tab Q6H PRN PO MODERATE PAIN LEVEL 4-6; Start 09/12/18 at 21:30 Lorazepam (Ativan) 0.5 mg Q6H PRN GTB ANXIETY Last administered on 09/15/18 01:44; Admin Dose 0.5 MG; Start 09/12/18 at 21:30 Multivit/Ca Carb/ B Cmplx/FA/Prenat (Ofe-Mine) 1 tab DAILY GTB Last administered on 09/14/18 12:14; Admin Dose 1 TAB; Start 09/13/18 at 09:00 Ondansetron HCl (Zofran Tab) 4 mg Q6H PRN GTB NAUSEA AND/OR VOMITING; Start 09/12/18 at 21:30 Zinc Oxide (Zinc Oxide Oint) 1 applic DAILY TOP Last administered on 09/14/18 09:00; Admin Dose 1 APPLIC; Start 09/13/18 at 09:00 Pantoprazole (Protonix Iv) 40 mg DAILY@06 IV Last administered on 09/15/18 05:55; Admin Dose 40 MG; Start 09/14/18 at 06:00 Heparin Sodium (Porcine) (Heparin (1000 Units/ml)) 4,000 unit AFTER DIALYSIS CATHETER Last administered on 09/14/18 10:46; Admin Dose 3,100 UNIT; Start 09/13/18 at 16:30 Albumin Human 100 ml @ 100 mls/hr WITH DIALYSIS PRN IV SBP <90 DURING DIALYSIS Last administered on 09/14/18 08:36; Admin Dose 100 MLS/HR; Start 09/13/18 at 16:30 Sodium Chloride (NS) -To prime the dialy... DIRECTED FOR HD PRN IV HD; Start 09/13/18 at 16:30 Ferric Sodium Gluconate Complex 125 mg/Sodium Chloride 110 ml @ 110 mls/hr DAILY@1300 IVPB Last administered on 09/14/18at 12:56; Admin Dose 110 MLS/HR; Start 09/14/18 at 13:00; Stop 09/18/18 at 13:59 Epoetin Tim (Epogen (Esrd)) 8,000 units TuThSa@17 SC Last administered on 09/13/18at 17:48; Admin Dose 8,000 UNITS; Start 09/13/18 at 17:00 Guaifenesin/ Dextromethorphan (Robitussin Dm Liquid Cup) 5 ml Q4H PRN PO Cough Last administered on 09/15/18at 05:55; Admin Dose 5 ML; Start 09/14/18 at 22:00 ALVARO ROBLERO Sep 15, 2018 08:23
--- NOTE | 2018-09-15 08:34 | CONS ---
Assessment/Plan Assessment/Plan Hospital Course (Demo Recall) 83 Male 1. Pancytopenia. At this point, no evidence of active GI bleeding. -FOB negative, Iron panel noted. 2. Coronary artery disease status post PCI. 3. Respiratory failure. 4. Benign prostatic hypertrophy. 5. Depression. 6. Sacral decubitus ulcer. 7. End-stage renal disease on dialysis. 8. Thrombocytopenia platelet count is 40,000 in stable -per heme onc: keep platelets above 20,000, hgb above 7.0 -feel pancytopenia is due to multiple underlying disorders 9. C diff in stool PLAN: Start vanco PO 125mg QID x 10 daysand flagyl 500 mg TID x 10 days We will monitor closely for evidence of GI bleeding. Per heme onc keep plt above 20,000 and hgb above 7.0. If platelet count keeps dropping then we will switch from PPI to H2 mark Consultation Date/Type/Reason Admit Date/Time Sep 12, 2018 at 12:05 Initial Consult Date 09/13/18 Requesting Provider: RUBÉN BENITO MD Date/Time of Note DATE: 09/15/18 TIME: 08:24 24 HR Interval Summary Free Text/Dictation No evidence of GI bleeding noted per RN. Tolerating tube feeds. Exam/Review of Systems Exam Vitals Vital Signs Date Temp Pulse Resp B/P (MAP) Pulse Ox O2 O2 Flow FiO2 Time Delivery Rate 09/15/18 98.9 60 20 102/54 99 Mechanical 07:25 (70) Ventilator 09/15/18 35 05:26 Intake and Output 09/14/18 09/14/18 09/15/18 1515:00 23:00 07:00 IntakeIntake Total 100 ml 500 ml 970 ml OutputOutput Total 900 ml 300 ml 500 ml BalanceBalance -800 ml 200 ml 470 ml Constitutional: alert Eyes: nl sclera ENMT: other (dried blood on left nares with no active bleeding noted) Respiratory: other (trach to vent, non labored breathing) Cardiovascular: regular rate and rhythm Gastrointestinal: soft, non-tender Results Result Diagram: 09/14/1852209/14/18522 Medications Medication Current Medications Influenza Virus Vaccine Quadrival (Fluzone) 0.5 ml ONCE ONCE IM* ; Start 09/15/18 at 09:00; Stop 09/15/18 at 09:01 Albuterol/ Ipratropium (Duoneb) 3 ml Q4H RESP THERAPY PRN HHN SHORTNESS OF BREATH Last administered on 09/14/18 21:38; Admin Dose 3 ML; Start 09/12/18 at 20:30 Ascorbic Acid (Vitamin C) 250 mg DAILY GTB Last administered on 09/14/18 12:50; Admin Dose 250 MG; Start 09/13/18 at 09:00 Collagenase (Santyl) 1 applic BID TOP Last administered on 09/14/18 21:20; Admin Dose 1 APPLIC; Start 09/13/18 at 09:00 Docusate Sodium (Colace Liquid Cup) 50 mg BID GTB Last administered on 09/14/18 21:20; Admin Dose 50 MG; Start 09/13/18 at 09:00 Ertapenem 0.5 gm/ Sodium Chloride 100 ml @ 200 mls/hr Q24H IVPB Last administered on 09/14/18 21:20; Admin Dose 200 MLS/HR; Start 09/12/18 at 22:00; Stop 09/17/18 at 21:59 Escitalopram Oxalate (Lexapro) 10 mg DAILY GTB Last administered on 09/14/18 12:14; Admin Dose 10 MG; Start 09/13/18 at 09:00 Finasteride (Proscar) 5 mg DAILY GTB Last administered on 09/14/18 12:50; Admin Dose 5 MG; Start 09/13/18 at 09:00 Acetaminophen/ Hydrocodone Bitart ([place] (5/325)) 1 tab Q6H PRN PO MODERATE PAIN LEVEL 4-6; Start 09/12/18 at 21:30 Lorazepam (Ativan) 0.5 mg Q6H PRN GTB ANXIETY Last administered on 09/15/18 01:44; Admin Dose 0.5 MG; Start 09/12/18 at 21:30 Multivit/Ca Carb/ B Cmplx/FA/Prenat (Ofe-Mine) 1 tab DAILY GTB Last administered on 09/14/18 12:14; Admin Dose 1 TAB; Start 09/13/18 at 09:00 Ondansetron HCl (Zofran Tab) 4 mg Q6H PRN GTB NAUSEA AND/OR VOMITING; Start 09/12/18 at 21:30 Zinc Oxide (Zinc Oxide Oint) 1 applic DAILY TOP Last administered on 09/14/18 09:00; Admin Dose 1 APPLIC; Start 09/13/18 at 09:00 Pantoprazole (Protonix Iv) 40 mg DAILY@06 IV Last administered on 09/15/18 05:55; Admin Dose 40 MG; Start 09/14/18 at 06:00 Heparin Sodium (Porcine) (Heparin (1000 Units/ml)) 4,000 unit AFTER DIALYSIS CATHETER Last administered on 09/14/18at 10:46; Admin Dose 3,100 UNIT; Start 09/13/18 at 16:30 Albumin Human 100 ml @ 100 mls/hr WITH DIALYSIS PRN IV SBP <90 DURING DIALYSIS Last administered on 09/14/18 08:36; Admin Dose 100 MLS/HR; Start 09/13/18 at 16:30 Sodium Chloride (NS) -To prime the dialy... DIRECTED FOR HD PRN IV HD; Start 09/13/18 at 16:30 Ferric Sodium Gluconate Complex 125 mg/Sodium Chloride 110 ml @ 110 mls/hr DAILY@1300 IVPB Last administered on 09/14/18at 12:56; Admin Dose 110 MLS/HR; Start 09/14/18 at 13:00; Stop 09/18/18 at 13:59 Epoetin Tim (Epogen (Esrd)) 8,000 units TuThSa@17 SC Last administered on 09/13/18at 17:48; Admin Dose 8,000 UNITS; Start 09/13/18 at 17:00 Guaifenesin/ Dextromethorphan (Robitussin Dm Liquid Cup) 5 ml Q4H PRN PO Cough Last administered on 09/15/18at 05:55; Admin Dose 5 ML; Start 09/14/18 at 22:00 ALVARO ROBLERO Sep 15, 2018 08:34
[2018-09-15] MEDS ORDERED: INFLUENZA VIRUS VACCINE 0.5 ML (DISPENSING) IM* ONE (09:00)
[2018-09-15] MEDS: COLLAGENASE 5 GM (UD JAR) TOP SCH ×2 (09:14→21:38)
[2018-09-15] MEDS: MULTIVIT/CA CARB/B CMPLX/FA TAB GTB SCH (09:14)
[2018-09-15] MEDS: ESCITALOPRAM 10 MG TAB GTB SCH (09:14)
[2018-09-15] MEDS: DOCUSATE SODIUM 10 MG/ML (10ML CUP) GTB SCH ×2 (09:14→21:37)
[2018-09-15] MEDS: FINASTERIDE 5 MG TAB GTB SCH (09:15)
[2018-09-15] MEDS: ASCORBIC ACID 250 MG TAB GTB SCH (09:15)
[2018-09-15] MEDS: ZINC OXIDE 20% 30 GM OINT TOP SCH (09:16)
[2018-09-15] MEDS: BALSAM PERU/CASTOR OIL 60 GM TUBE TOP SCH (09:18)
--- NOTE | 2018-09-15 11:04 | CONS ---
Assessment/Plan Assessment/Plan Assessment/Plan (Daily) 1. acute fluid overload due to inadquate HD due to hypotension 2. Severe anemia concerned about GI bleeding 3. Hypokalemia 4. ESRD on HD on Sat, , saturday schedule at [facility] 5. h/o HTN 6. h/o HL 7. H/o Prostate CA 8. H/O Chronic respiratory failure s/p tracheostomy in place Plan: s/p HD yesteday pt did not do well, Bp dropped during HD and only 100 cc removed Epogen 8000 units SQ TTS- will give one dose today After today, next HD will be on Saturday, we will keep pt on Sat, , saturday schedule IV Ferrlectin x 5 doses for iron deficiency anemia GI following will follow up Consultation Date/Type/Reason Admit Date/Time Sep 12, 2018 at 12:05 Initial Consult Date 09/13/18 Type of Consult NEPHROLOGY Requesting Provider: RUBÉN BENITO MD Date/Time of Note DATE: 09/15/18 TIME: 11:04 24 HR Interval Summary Free Text/Dictation s/p HD yesteday pt did not do well, Bp dropped during HD and only 100 cc removed, Exam/Review of Systems Exam Vitals Vital Signs Date Temp Pulse Resp B/P (MAP) Pulse Ox O2 O2 Flow FiO2 Time Delivery Rate 09/15/18 60 08:01 09/15/18 35 08:00 09/15/18 98.9 20 102/54 99 Mechanical 07:25 (70) Ventilator Intake and Output 09/14/18 09/14/18 09/15/18 1414:59 22:59 06:59 IntakeIntake Total 100 ml 500 ml 970 ml OutputOutput Total 900 ml 300 ml 500 ml BalanceBalance -800 ml 200 ml 470 ml Exam Constitutional: non-verbal, distress ENMT: other (+ tracheostomy on venitlaotr ) Respiratory: diminished breath sounds, other (Bilateral coarse BS+) Cardiovascular: regular rate and rhythm Gastrointestinal: soft, other ( G tube in place ) Musculoskeletal: nl extremities to inspection Neurological: other (non verbal, on ventilator ) Lymph: nl lymph nodes Results Result Diagram: 09/14/1852209/14/18522 Medications Medication Current Medications Albuterol/ Ipratropium (Duoneb) 3 ml Q4H RESP THERAPY PRN HHN SHORTNESS OF BREATH Last administered on 09/14/18 21:38; Admin Dose 3 ML; Start 09/12/18 at 20:30 Ascorbic Acid (Vitamin C) 250 mg DAILY GTB Last administered on 09/15/18 09:15; Admin Dose 250 MG; Start 09/13/18 at 09:00 Collagenase (Santyl) 1 applic BID TOP Last administered on 09/15/18 09:14; Admin Dose 1 APPLIC; Start 09/13/18 at 09:00 Docusate Sodium (Colace Liquid Cup) 50 mg BID GTB Last administered on 09/15/18 09:14; Admin Dose 50 MG; Start 09/13/18 at 09:00 Ertapenem 0.5 gm/ Sodium Chloride 100 ml @ 200 mls/hr Q24H IVPB Last administered on 09/14/18 21:20; Admin Dose 200 MLS/HR; Start 09/12/18 at 22:00; Stop 09/17/18 at 21:59 Escitalopram Oxalate (Lexapro) 10 mg DAILY GTB Last administered on 09/15/18 09:14; Admin Dose 10 MG; Start 09/13/18 at 09:00 Finasteride (Proscar) 5 mg DAILY GTB Last administered on 09/15/18 09:15; Admin Dose 5 MG; Start 09/13/18 at 09:00 Acetaminophen/ Hydrocodone Bitart ([place] (5/325)) 1 tab Q6H PRN PO MODERATE PAIN LEVEL 4-6; Start 09/12/18 at 21:30 Lorazepam (Ativan) 0.5 mg Q6H PRN GTB ANXIETY Last administered on 09/15/18 01:44; Admin Dose 0.5 MG; Start 09/12/18 at 21:30 Multivit/Ca Carb/ B Cmplx/FA/Prenat (Ofe-Mine) 1 tab DAILY GTB Last administered on 09/15/18 09:14; Admin Dose 1 TAB; Start 09/13/18 at 09:00 Ondansetron HCl (Zofran Tab) 4 mg Q6H PRN GTB NAUSEA AND/OR VOMITING; Start 09/12/18 at 21:30 Zinc Oxide (Zinc Oxide Oint) 1 applic DAILY TOP Last administered on 09/15/18 09:16; Admin Dose 1 APPLIC; Start 09/13/18 at 09:00 Pantoprazole (Protonix Iv) 40 mg DAILY@06 IV Last administered on 09/15/18 05:55; Admin Dose 40 MG; Start 09/14/18 at 06:00 Heparin Sodium (Porcine) (Heparin (1000 Units/ml)) 4,000 unit AFTER DIALYSIS CATHETER Last administered on 09/14/18at 10:46; Admin Dose 3,100 UNIT; Start 09/13/18 at 16:30 Albumin Human 100 ml @ 100 mls/hr WITH DIALYSIS PRN IV SBP <90 DURING DIALYSIS Last administered on 09/14/18 08:36; Admin Dose 100 MLS/HR; Start 09/13/18 at 16:30 Sodium Chloride (NS) -To prime the dialy... DIRECTED FOR HD PRN IV HD; Start 09/13/18 at 16:30 Ferric Sodium Gluconate Complex 125 mg/Sodium Chloride 110 ml @ 110 mls/hr DAILY@1300 IVPB Last administered on 09/14/18at 12:56; Admin Dose 110 MLS/HR; Start 09/14/18 at 13:00; Stop 09/18/18 at 13:59 Epoetin Tim (Epogen (Esrd)) 8,000 units TuThSa@17 SC Last administered on 09/13/18at 17:48; Admin Dose 8,000 UNITS; Start 09/13/18 at 17:00 Guaifenesin/ Dextromethorphan (Robitussin Dm Liquid Cup) 5 ml Q4H PRN PO Cough Last administered on 09/15/18at 05:55; Admin Dose 5 ML; Start 09/14/18 at 22:00 Vancomycin HCl (Vancomycin Oral Syringe) 125 mg Q6 PO ; Start 09/15/18 at 12:00 Metronidazole 100 ml @ 100 mls/hr Q6 IVPB ; Start 09/15/18 at 12:00 FELICIANO RAMIREZ MD Sep 15, 2018 11:04
--- NOTE | 2018-09-15 11:34 | CONS ---
Assessment/Plan Assessment/Plan Hospital Course (Demo Recall) IMP: 1.BRadycardia-possible miscounting by tele monitor 2.PPM-v paced at 60. No signs of dysfunction 3.c diff 4.ESRD on HD 5. REsp failure-chronic s/p trach Recc: -Tele -serial ecg's -Follow rhythm/rate closely -Continue flagyl/vanc -HD for volume removal Consultation Date/Type/Reason Admit Date/Time Sep 12, 2018 at 12:05 Initial Consult Date 09/13/18 Type of Consult Cardiology Reason for Consultation PPM Requesting Provider: RUBÉN BENITO MD Date/Time of Note DATE: 09/15/18 TIME: 11:30 Exam/Review of Systems Vital Signs Vitals Vital Signs Date Temp Pulse Resp B/P (MAP) Pulse Ox O2 O2 Flow FiO2 Time Delivery Rate 09/15/18 60 08:01 09/15/18 35 08:00 09/15/18 98.9 20 102/54 99 Mechanical 07:25 (70) Ventilator Intake and Output 09/14/18 09/14/18 09/15/18 1515:00 23:00 07:00 IntakeIntake Total 100 ml 500 ml 970 ml OutputOutput Total 900 ml 300 ml 500 ml BalanceBalance -800 ml 200 ml 470 ml Exam Exam Review of Systems: CONSTITUTIONAL: No fevers, chills. PULMONARY: trached CARDIOVASCULAR: No chest pain/palpitations GASTROINTESTINAL: No nausea/vomiting. GENITOURINARY: No hematuria/dysuria. MUSCULOSKELETAL: No myagias/arthalgias. PSYCHIATRIC: The patient denies depression. NEUROLOGIC: encephhalopathy Constitutional: other (sleeping) Psych: no complaints Head: normocephalic ENMT: mucosa pink and moist Neck: supple, jvd (9cm water) Respiratory: diminished breath sounds (at bases/B) Cardiovascular: regular rate and rhythm Gastrointestinal: non-tender Musculoskeletal: muscle tone Extremities: edema (none) Neurological: other (No focal deficits) Labs Result Diagram: 09/14/1852209/14/18522 Medications Medications Current Medications Albuterol/ Ipratropium (Duoneb) 3 ml Q4H RESP THERAPY PRN HHN SHORTNESS OF BREATH Last administered on 09/14/18at 21:38; Admin Dose 3 ML; Start 09/12/18 at 20:30 Ascorbic Acid (Vitamin C) 250 mg DAILY GTB Last administered on 09/15/18 09:15; Admin Dose 250 MG; Start 09/13/18 at 09:00 Collagenase (Santyl) 1 applic BID TOP Last administered on 09/15/18 09:14; Admin Dose 1 APPLIC; Start 09/13/18 at 09:00 Docusate Sodium (Colace Liquid Cup) 50 mg BID GTB Last administered on 09/15/18 09:14; Admin Dose 50 MG; Start 09/13/18 at 09:00 Ertapenem 0.5 gm/ Sodium Chloride 100 ml @ 200 mls/hr Q24H IVPB Last administered on 09/14/18 21:20; Admin Dose 200 MLS/HR; Start 09/12/18 at 22:00; Stop 09/17/18 at 21:59 Escitalopram Oxalate (Lexapro) 10 mg DAILY GTB Last administered on 09/15/18 09:14; Admin Dose 10 MG; Start 09/13/18 at 09:00 Finasteride (Proscar) 5 mg DAILY GTB Last administered on 09/15/18 09:15; Admin Dose 5 MG; Start 09/13/18 at 09:00 Acetaminophen/ Hydrocodone Bitart ([place] (5/325)) 1 tab Q6H PRN PO MODERATE PAIN LEVEL 4-6; Start 09/12/18 at 21:30 Lorazepam (Ativan) 0.5 mg Q6H PRN GTB ANXIETY Last administered on 09/15/18at 01:44; Admin Dose 0.5 MG; Start 09/12/18 at 21:30 Multivit/Ca Carb/ B Cmplx/FA/Prenat (Ofe-Mine) 1 tab DAILY GTB Last administered on 09/15/18 09:14; Admin Dose 1 TAB; Start 09/13/18 at 09:00 Ondansetron HCl (Zofran Tab) 4 mg Q6H PRN GTB NAUSEA AND/OR VOMITING; Start at 21:30 Zinc Oxide (Zinc Oxide Oint) 1 applic DAILY TOP Last administered on 09/15/18 09:16; Admin Dose 1 APPLIC; Start 09/13/18 at 09:00 Pantoprazole (Protonix Iv) 40 mg DAILY@06 IV Last administered on 09/15/18at 05:55; Admin Dose 40 MG; Start 09/14/18 at 06:00 Heparin Sodium (Porcine) (Heparin (1000 Units/ml)) 4,000 unit AFTER DIALYSIS CATHETER Last administered on 09/14/18at 10:46; Admin Dose 3,100 UNIT; Start 09/13/18 at 16:30 Albumin Human 100 ml @ 100 mls/hr WITH DIALYSIS PRN IV SBP <90 DURING DIALYSIS Last administered on 09/14/18at 08:36; Admin Dose 100 MLS/HR; Start 09/13/18 at 16:30 Sodium Chloride (NS) -To prime the dialy... DIRECTED FOR HD PRN IV HD; Start 09/13/18 at 16:30 Epoetin Tim (Epogen (Esrd)) 8,000 units TuThSa@17 SC Last administered on 09/13/18at 17:48; Admin Dose 8,000 UNITS; Start 09/13/18 at 17:00 Guaifenesin/ Dextromethorphan (Robitussin Dm Liquid Cup) 5 ml Q4H PRN PO Cough Last administered on 09/15/18at 05:55; Admin Dose 5 ML; Start 09/14/18 at 22:00 Vancomycin HCl (Vancomycin Oral Syringe) 125 mg Q6 PO ; Start 09/15/18 at 12:00 Metronidazole 100 ml @ 100 mls/hr Q6 IVPB ; Start 09/15/18 at 12:00 Potassium Chloride 50 ml @ 50 mls/hr Q1H IVPB ; Start 09/15/18 at 11:30; Stop 09/15/18 at 14:29 Ferric Sodium Gluconate Complex 125 mg/Sodium Chloride 110 ml @ 110 mls/hr DAILY@1300 IVPB ; Start 09/15/18 at 13:00; Stop 09/19/18 at 13:59 PETRA DELA CRUZ Sep 15, 2018 11:34
[2018-09-15] MEDS: metroNIDAZOLE 500 MG/NS (PMX) 100 ML IVPB SCH ×2 (11:56→17:50)
[2018-09-15] MEDS: POTASSIUM CHLORIDE 50 ML IVPB SCH ×3 (11:56→15:30)
[2018-09-15] MEDS: SOD FERRIC GLUC COMPLX 125 MG in SOD CHLORIDE 0.9% 100 ML IVPB SCH (13:18)
[2018-09-15] MEDS: VANCOMYCIN HCL 250 MG/5ML POSYG PO SCH ×2 (13:19→17:50)
--- NOTE | 2018-09-15 14:45 | CONS ---
Assessment/Plan Assessment/Plan Hospital Course (Demo Recall) ASSESSMENT AND PLAN: Elderly gentleman with multiple medical problems including cardiovascular heart disease, respiratory failure, kidney damage, chronic renal failure. -most likely that pancytopenia is due to sepsis today Hgb 7.9, WBC 5.6, plt 40K -goal is supportive: Keep hemoglobin above 7, hematocrit above 21. Keep platelets above 10,000. If the platelet drops below 10,000 or the patient bleeds, transfuse 1 unit of platelets. -he has very elevated ferritin c/w anemia of chronic disease/chronic inflammation, Cr is elevated, he is a candidate for procrit -normal B12 and folate -has mild macrocytosis, check SPEP and haptoglobin and tammy Consultation Date/Type/Reason Admit Date/Time Sep 12, 2018 at 12:05 Initial Consult Date 09/13/18 Requesting Provider: RUÉBN BENITO MD Date/Time of Note DATE: 09/15/18 TIME: 14:43 24 HR Interval Summary Free Text/Dictation vented Exam/Review of Systems Exam Vitals Vital Signs Date Temp Pulse Resp B/P (MAP) Pulse Ox O2 O2 Flow FiO2 Time Delivery Rate 09/15/18 99.6 60 20 104/57 100 Mechanical 12:03 (73) Ventilator 09/15/18 35 08:00 Intake and Output 09/14/18 09/14/18 09/15/18 1515:00 23:00 07:00 IntakeIntake Total 100 ml 500 ml 970 ml OutputOutput Total 900 ml 300 ml 500 ml BalanceBalance -800 ml 200 ml 470 ml Constitutional: frail Neck: supple, non-tender, other (trach) Respiratory: diminished breath sounds Musculoskeletal: nl extremities to inspection, nl gait and stance Results Result Diagram: 09/14/18 0523 09/14/18 05 Medications Medication Current Medications Albuterol/ Ipratropium (Duoneb) 3 ml Q4H RESP THERAPY PRN HHN SHORTNESS OF BREATH Last administered on 09/14/18at 21:38; Admin Dose 3 ML; Start 09/12/18 at 20:30 Ascorbic Acid (Vitamin C) 250 mg DAILY GTB Last administered on 09/15/18at 09:15; Admin Dose 250 MG; Start 09/13/18 at 09:00 Collagenase (Santyl) 1 applic BID TOP Last administered on 09/15/18 09:14; Admin Dose 1 APPLIC; Start 09/13/18 at 09:00 Docusate Sodium (Colace Liquid Cup) 50 mg BID GTB Last administered on 09/15/18 09:14; Admin Dose 50 MG; Start 09/13/18 at 09:00 Ertapenem 0.5 gm/ Sodium Chloride 100 ml @ 200 mls/hr Q24H IVPB Last administered on 09/14/18 21:20; Admin Dose 200 MLS/HR; Start 09/12/18 at 22:00; Stop 09/17/18 at 21:59 Escitalopram Oxalate (Lexapro) 10 mg DAILY GTB Last administered on 09/15/18 09:14; Admin Dose 10 MG; Start 09/13/18 at 09:00 Finasteride (Proscar) 5 mg DAILY GTB Last administered on 09/15/18 09:15; Admin Dose 5 MG; Start 09/13/18 at 09:00 Acetaminophen/ Hydrocodone Bitart ([place] (5/325)) 1 tab Q6H PRN PO MODERATE PAIN LEVEL 4-6; Start 09/12/18 at 21:30 Lorazepam (Ativan) 0.5 mg Q6H PRN GTB ANXIETY Last administered on 09/15/18 01:44; Admin Dose 0.5 MG; Start 09/12/18 at 21:30 Multivit/Ca Carb/ B Cmplx/FA/Prenat (Ofe-Mine) 1 tab DAILY GTB Last administered on 09/15/18 09:14; Admin Dose 1 TAB; Start 09/13/18 at 09:00 Ondansetron HCl (Zofran Tab) 4 mg Q6H PRN GTB NAUSEA AND/OR VOMITING; Start 09/12/18 at 21:30 Zinc Oxide (Zinc Oxide Oint) 1 applic DAILY TOP Last administered on 09/15/18 09:16; Admin Dose 1 APPLIC; Start 09/13/18 at 09:00 Pantoprazole (Protonix Iv) 40 mg DAILY@06 IV Last administered on 09/15/18 05:55; Admin Dose 40 MG; Start 09/14/18 at 06:00 Heparin Sodium (Porcine) (Heparin (1000 Units/ml)) 4,000 unit AFTER DIALYSIS CATHETER Last administered on 09/14/18at 10:46; Admin Dose 3,100 UNIT; Start 09/13/18 at 16:30 Albumin Human 100 ml @ 100 mls/hr WITH DIALYSIS PRN IV SBP <90 DURING DIALYSIS Last administered on 09/14/18at 08:36; Admin Dose 100 MLS/HR; Start 09/13/18 at 16:30 Sodium Chloride (NS) -To prime the dialy... DIRECTED FOR HD PRN IV HD; Start 09/13/18 at 16:30 Epoetin Tim (Epogen (Esrd)) 8,000 units TuThSa@17 SC Last administered on 09/13/18at 17:48; Admin Dose 8,000 UNITS; Start 09/13/18 at 17:00 Guaifenesin/ Dextromethorphan (Robitussin Dm Liquid Cup) 5 ml Q4H PRN PO Cough Last administered on 09/15/18at 05:55; Admin Dose 5 ML; Start 09/14/18 at 22:00 Vancomycin HCl (Vancomycin Oral Syringe) 125 mg Q6 PO Last administered on 09/15/18at 13:19; Admin Dose 125 MG; Start 09/15/18 at 12:00 Metronidazole 100 ml @ 100 mls/hr Q6 IVPB Last administered on 09/15/18at 11:56; Admin Dose 100 MLS/HR; Start 09/15/18 at 12:00 Ferric Sodium Gluconate Complex 125 mg/Sodium Chloride 110 ml @ 110 mls/hr DAILY@1300 IVPB Last administered on 09/15/18at 13:18; Admin Dose 110 MLS/HR; Start 09/15/18 at 13:00; Stop 09/19/18 at 13:59 IVÁN GONZALEZ Sep 15, 2018 14:45
--- NOTE | 2018-09-15 15:12 | CONS ---
Consult Date/Type/Reason Admit Date/Time Sep 12, 2018 at 12:05 Initial Consult Date 09/13/18 Type of Consult Pulmonary Requesting Provider: RUBÉN BENITO MD Date/Time of Note DATE: 09/15/18 TIME: 15:11 Subjective Patient remained stable on mechanical ventilation. No overt bleeding noted. Objective Vital Signs Date Temp Pulse Resp B/P (MAP) Pulse Ox O2 O2 Flow FiO2 Time Delivery Rate 09/15/18 99.6 60 20 104/57 100 Mechanical 12:03 (73) Ventilator 09/15/18 35 08:00 Intake and Output 09/14/18 09/14/18 09/15/18 1414:59 22:59 06:59 IntakeIntake Total 100 ml 500 ml 970 ml OutputOutput Total 900 ml 300 ml 500 ml BalanceBalance -800 ml 200 ml 470 ml Exam PHYSICAL EXAMINATION: GENERAL: Elderly-appearing gentleman on mechanical ventilation. He appears comfortable at rest, no acute distress. VITAL SIGNS: NECK: Trach site clean and intact. CARDIAC: S1, S2, no added sounds or murmurs. CHEST: Diminished air entry bilaterally. ABDOMEN: Soft, nontender. No guarding or rebound. EXTREMITIES: No cyanosis, clubbing or edema. NEUROLOGIC: Generalized weakness. Vent Setting Ventilator Support Mode: AC Fraction of Inspired Oxygen pe: 35 Positive End Expiratory Pressu: 5.0 Results/Medications Result Diagram: 09/14/18 0523 09/14/18 05 Medications Current Medications Albuterol/ Ipratropium (Duoneb) 3 ml Q4H RESP THERAPY PRN HHN SHORTNESS OF BREATH Last administered on 09/14/18at 21:38; Admin Dose 3 ML; Start 09/12/18 at 20:30 Ascorbic Acid (Vitamin C) 250 mg DAILY GTB Last administered on 09/15/18at 09:15; Admin Dose 250 MG; Start 09/13/18 at 09:00 Collagenase (Santyl) 1 applic BID TOP Last administered on 09/15/18at 09:14; Admin Dose 1 APPLIC; Start 09/13/18 at 09:00 Docusate Sodium (Colace Liquid Cup) 50 mg BID GTB Last administered on 09/15/18at 09:14; Admin Dose 50 MG; Start 09/13/18 at 09:00 Ertapenem 0.5 gm/ Sodium Chloride 100 ml @ 200 mls/hr Q24H IVPB Last administered on 09/14/18 21:20; Admin Dose 200 MLS/HR; Start 09/12/18 at 22:00; Stop 09/17/18 at 21:59 Escitalopram Oxalate (Lexapro) 10 mg DAILY GTB Last administered on 09/15/18 09:14; Admin Dose 10 MG; Start 09/13/18 at 09:00 Finasteride (Proscar) 5 mg DAILY GTB Last administered on 09/15/18 09:15; Admin Dose 5 MG; Start 09/13/18 at 09:00 Acetaminophen/ Hydrocodone Bitart ([place] (5/325)) 1 tab Q6H PRN PO MODERATE PAIN LEVEL 4-6; Start 09/12/18 at 21:30 Lorazepam (Ativan) 0.5 mg Q6H PRN GTB ANXIETY Last administered on 09/15/18 01:44; Admin Dose 0.5 MG; Start 09/12/18 at 21:30 Multivit/Ca Carb/ B Cmplx/FA/Prenat (Ofe-Mine) 1 tab DAILY GTB Last administered on 09/15/18 09:14; Admin Dose 1 TAB; Start 09/13/18 at 09:00 Ondansetron HCl (Zofran Tab) 4 mg Q6H PRN GTB NAUSEA AND/OR VOMITING; Start 09/12/18 at 21:30 Zinc Oxide (Zinc Oxide Oint) 1 applic DAILY TOP Last administered on 09/15/18 09:16; Admin Dose 1 APPLIC; Start 09/13/18 at 09:00 Pantoprazole (Protonix Iv) 40 mg DAILY@06 IV Last administered on 09/15/18 05:55; Admin Dose 40 MG; Start 09/14/18 at 06:00 Heparin Sodium (Porcine) (Heparin (1000 Units/ml)) 4,000 unit AFTER DIALYSIS CATHETER Last administered on 09/14/18 10:46; Admin Dose 3,100 UNIT; Start 09/13/18 at 16:30 Albumin Human 100 ml @ 100 mls/hr WITH DIALYSIS PRN IV SBP <90 DURING DIALYSIS Last administered on 09/14/18 08:36; Admin Dose 100 MLS/HR; Start 09/13/18 at 16:30 Sodium Chloride (NS) -To prime the dialy... DIRECTED FOR HD PRN IV HD; Start 09/13/18 at 16:30 Epoetin Tim (Epogen (Esrd)) 8,000 units TuThSa@17 SC Last administered on 09/13/18at 17:48; Admin Dose 8,000 UNITS; Start 09/13/18 at 17:00 Guaifenesin/ Dextromethorphan (Robitussin Dm Liquid Cup) 5 ml Q4H PRN PO Cough Last administered on 09/15/18at 05:55; Admin Dose 5 ML; Start 09/14/18 at 22:00 Vancomycin HCl (Vancomycin Oral Syringe) 125 mg Q6 PO Last administered on 09/15/18at 13:19; Admin Dose 125 MG; Start 09/15/18 at 12:00 Metronidazole 100 ml @ 100 mls/hr Q6 IVPB Last administered on 09/15/18at 11:56; Admin Dose 100 MLS/HR; Start 09/15/18 at 12:00 Ferric Sodium Gluconate Complex 125 mg/Sodium Chloride 110 ml @ 110 mls/hr DAILY@1300 IVPB Last administered on 09/15/18 13:18; Admin Dose 110 MLS/HR; Start 09/15/18 at 13:00; Stop 09/19/18 at 13:59 Midodrine (Proamatine) 5 mg TID@09,13,17 PO ; Start 09/15/18 at 17:00 Assessment/Plan Hospital Course (Demo Recall) IMPRESSION 1. Recent urinary tract infection. 2. Significant anemia with a history of gastrointestinal bleeding. 3. Recurrent pneumonias with tracheostomy. 4. End-stage renal failure on hemodialysis. Plan: 1. Continued broad spectrum antibiotics. 2. Transfusion of packed red blood cells. Monitor h/h, continue Hemonc recommendations with transfusion limits noted. Workup for multiple myeloma. 3. Gastrointestinal evaluation for ongoing gastrointestinal bleed. 4. Iron replacement. 5. Deep venous thrombosis and GI prophylaxis. SPENSER RICO MD, [facility] Sep 15, 2018 15:12
[2018-09-15] MEDS ORDERED: EPOETIN 10000 UNITS/1 ML INJ (ESRD) SC SCH (17:00)
[2018-09-15] MEDS: MIDODRINE 5 MG TAB PO SCH (17:54)
--- NOTE | 2018-09-15 18:30 | PN ---
Date/Time of Note Date/Time of Note DATE: 09/15/18 TIME: 18:29 Assessment/Plan VTE Prophylaxis Risk score (from [facility])>0 risk: 13 SCD applied (from [facility]): Yes Pharmacological prophylaxis: NA/contraindicated Pharm contraindication: bleeding, thrombocytopenia Lines/Catheters [facility] Peripheral IV Urinary Cath still in place: No Assessment/Plan Hospital Course Patient is awake, continues on ventilatory support, with a low-grade fever, stool for C. difficile is positive patient is started on vancomycin via G-tube. Assessment/Plan -C. difficile colitis, continue Vanco via G-tube -Pancytopenia, status post blood transfusion. Dr. Coleman is following him here in hematology consultation. Dr. Hedrick is following in gastroenterology consultation. Stool for OB is negative. 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 Continue Prevacid. -Coronary artery disease status post PCI. Patient with pancytopenia with history of recurrent gastrointestinal bleed, unfortunately cannot be giving aspirin or Plavix. -Permanent pacemaker -Ventilator dependent respiratory failure. Dr. Mendoza is following in pulmonology consultation. -Hemodialysis dependent end-stage renal disease. Continue hemodialysis. Dr. Mari is following in nephrology consultation. -Dysphagia with G-tube -Sacral decubitus. Continue local wound care. -Depression. Continue Lexapro. -History of prostate cancer Further recommendations based on clinical course. Plan of care discussed with Dr. Brown. Result Diagram: 09/14/1852209/14/18522 Exam/Review of Systems Exam Vitals Vital Signs Date Temp Pulse Resp B/P (MAP) Pulse Ox O2 O2 Flow FiO2 Time Delivery Rate 09/15/18 59 15 100 35 17:18 09/15/18 99.8 115/55 Mechanical 16:04 (75) Ventilator Intake and Output 09/14/18 09/14/18 09/15/18 1515:00 23:00 07:00 IntakeIntake Total 100 ml 500 ml 970 ml OutputOutput Total 900 ml 300 ml 500 ml BalanceBalance -800 ml 200 ml 470 ml Constitutional: alert, non-verbal Respiratory: diminished breath sounds Cardiovascular: other (PPM) Gastrointestinal: soft, non-tender, other (G-tube) Extremities: normal pulses Neurological: confused Medications Medication Current Medications Albuterol/ Ipratropium (Duoneb) 3 ml Q4H RESP THERAPY PRN HHN SHORTNESS OF BREATH Last administered on 09/14/18 21:38; Admin Dose 3 ML; Start 09/12/18 at 20:30 Ascorbic Acid (Vitamin C) 250 mg DAILY GTB Last administered on 09/15/18 09:15; Admin Dose 250 MG; Start 09/13/18 at 09:00 Collagenase (Santyl) 1 applic BID TOP Last administered on 09/15/18 09:14; Admin Dose 1 APPLIC; Start 09/13/18 at 09:00 Docusate Sodium (Colace Liquid Cup) 50 mg BID GTB Last administered on 09/15/18 09:14; Admin Dose 50 MG; Start 09/13/18 at 09:00 Ertapenem 0.5 gm/ Sodium Chloride 100 ml @ 200 mls/hr Q24H IVPB Last ad ministered on 09/14/18 21:20; Admin Dose 200 MLS/HR; Start 09/12/18 at 22:00; Stop 09/17/18 at 21:59 Escitalopram Oxalate (Lexapro) 10 mg DAILY GTB Last administered on 09/15/18 09:14; Admin Dose 10 MG; Start 09/13/18 at 09:00 Finasteride (Proscar) 5 mg DAILY GTB Last administered on 09/15/18 09:15; Admin Dose 5 MG; Start 09/13/18 at 09:00 Acetaminophen/ Hydrocodone Bitart ([place] (5/325)) 1 tab Q6H PRN PO MODERATE PAIN LEVEL 4-6; Start 09/12/18 at 21:30 Lorazepam (Ativan) 0.5 mg Q6H PRN GTB ANXIETY Last administered on 09/15/18 01:44; Admin Dose 0.5 MG; Start 09/12/18 at 21:30 Multivit/Ca Carb/ B Cmplx/FA/Prenat (Ofe-Mine) 1 tab DAILY GTB Last administered on 09/15/18 09:14; Admin Dose 1 TAB; Start 09/13/18 at 09:00 Ondansetron HCl (Zofran Tab) 4 mg Q6H PRN GTB NAUSEA AND/OR VOMITING; Start 09/12/18 at 21:30 Zinc Oxide (Zinc Oxide Oint) 1 applic DAILY TOP Last administered on 09/15/18 09:16; Admin Dose 1 APPLIC; Start 09/13/18 at 09:00 Heparin Sodium (Porcine) (Heparin (1000 Units/ml)) 4,000 unit AFTER DIALYSIS CATHETER Last administered on 09/14/18 10:46; Admin Dose 3,100 UNIT; Start 09/13/18 at 16:30 Albumin Human 100 ml @ 100 mls/hr WITH DIALYSIS PRN IV SBP <90 DURING DIALYSIS Last administered on 09/14/18 08:36; Admin Dose 100 MLS/HR; Start 09/13/18 at 16:30 Sodium Chloride (NS) -To prime the dialy... DIRECTED FOR HD PRN IV HD; Start 09/13/18 at 16:30 Epoetin Tim (Epogen (Esrd)) 8,000 units TuThSa@17 SC Last administered on 09/13/18 17:48; Admin Dose 8,000 UNITS; Start 09/13/18 at 17:00 Guaifenesin/ Dextromethorphan (Robitussin Dm Liquid Cup) 5 ml Q4H PRN PO Cough Last administered on 09/15/18 05:55; Admin Dose 5 ML; Start 09/14/18 at 22:00 Vancomycin HCl (Vancomycin Oral Syringe) 125 mg Q6 PO Last administered on 09/15/18 17:50; Admin Dose 125 MG; Start 09/15/18 at 12:00 Metronidazole 100 ml @ 100 mls/hr Q6 IVPB Last administered on 09/15/18at 17:50; Admin Dose 100 MLS/HR; Start 09/15/18 at 12:00 Ferric Sodium Gluconate Complex 125 mg/Sodium Chloride 110 ml @ 110 mls/hr DAILY@1300 IVPB Last administered on 09/15/18 13:18; Admin Dose 110 MLS/HR; Start 09/15/18 at 13:00; Stop 09/19/18 at 13:59 Midodrine (Proamatine) 5 mg TID@,13,17 PO Last administered on 09/15/18at 17:54; Admin Dose 5 MG; Start 09/15/18 at 17:00 Lansoprazole (Prevacid) 30 mg DAILY@06 PEG ; Start 09/16/18 at 06:00 RADHA FISHER Sep 15, 2018 18:30
[2018-09-15] MEDS: ERTAPENEM SODIUM 0.5 GM in SOD CHLORIDE 0.9% 100 ML IVPB SCH (21:36)
[2018-09-16] VITALS (34 sets, daily range): BP systolic 93–126; BP diastolic 44–62; PULSE 59–66; RESP 18–27
[2018-09-16] MEDS: VANCOMYCIN HCL 250 MG/5ML POSYG PO SCH ×4 (00:23→17:26)
[2018-09-16] MEDS: metroNIDAZOLE 500 MG/NS (PMX) 100 ML IVPB SCH ×4 (00:23→17:26)
[2018-09-16] MEDS: LANSOPRAZOLE 30 MG CAP PEG SCH (06:10)
--- NOTE | 2018-09-16 08:24 | CONS ---
Assessment/Plan Assessment/Plan Hospital Course (Demo Recall) 83 Male 1. Pancytopenia. At this point, no evidence of active GI bleeding. -FOB negative, Iron panel noted. 2. Coronary artery disease status post PCI. 3. Respiratory failure. 4. Benign prostatic hypertrophy. 5. Depression. 6. Sacral decubitus ulcer. 7. End-stage renal disease on dialysis. 8. Thrombocytopenia platelet count is 40,000 in stable -per heme onc: keep platelets above 20,000, hgb above 7.0 -feel pancytopenia is due to multiple underlying disorders 9. C diff in stool PLAN: FOB Start vanco PO 125mg QID x 10 daysand flagyl 500 mg TID x 10 days We will monitor closely for evidence of GI bleeding. Per heme onc keep plt above 20,000 and hgb above 7.0. Continue wit Prevacid pt examined and plan of care discussed with Dr. Hedrick Consultation Date/Type/Reason Admit Date/Time Sep 12, 2018 at 12:05 Initial Consult Date 09/13/18 Requesting Provider: RUBÉN BENITO MD Date/Time of Note DATE: 09/16/18 TIME: 08:21 24 HR Interval Summary Free Text/Dictation Rectal tube with brown liquid stool. No residuals from g tube. Receiving HD today. Pending am labs. No overt signs of GI bleeding. Exam/Review of Systems Exam Vitals Vital Signs Date Temp Pulse Resp B/P (MAP) Pulse Ox O2 O2 Flow FiO2 Time Delivery Rate 09/16/18 99.0 65 20 126/61 100 07:58 (82) 09/16/18 35 05:26 09/15/18 Mechanical 16:04 Ventilator Intake and Output 09/15/18 09/15/18 09/16/18 1515:00 23:00 07:00 IntakeIntake Total 200 ml 1020 ml 780 ml OutputOutput Total 150 ml 400 ml BalanceBalance 200 ml 870 ml 380 ml Constitutional: alert Head: normocephalic ENMT: other (trach site clean and dry, old dried blood rt nares) Respiratory: diminished breath sounds Cardiovascular: regular rate and rhythm Gastrointestinal: soft, non-tender Results Result Diagram: 09/14/1852209/14/18522 Medications Medication Current Medications Albuterol/ Ipratropium (Duoneb) 3 ml Q4H RESP THERAPY PRN HHN SHORTNESS OF BREATH Last administered on 09/14/18 21:38; Admin Dose 3 ML; Start 09/12/18 at 20:30 Ascorbic Acid (Vitamin C) 250 mg DAILY GTB Last administered on 09/15/18 09:15; Admin Dose 250 MG; Start 09/13/18 at 09:00 Collagenase (Santyl) 1 applic BID TOP Last administered on 09/15/18 21:38; Admin Dose 1 APPLIC; Start 09/13/18 at 09:00 Docusate Sodium (Colace Liquid Cup) 50 mg BID GTB Last administered on 09/15/18 21:37; Admin Dose 50 MG; Start 09/13/18 at 09:00 Ertapenem 0.5 gm/ Sodium Chloride 100 ml @ 200 mls/hr Q24H IVPB Last admi nistered on 09/15/18 21:36; Admin Dose 200 MLS/HR; Start 09/12/18 at 22:00; Stop 09/17/18 at 21:59 Escitalopram Oxalate (Lexapro) 10 mg DAILY GTB Last administered on 09/15/18 09:14; Admin Dose 10 MG; Start 09/13/18 at 09:00 Finasteride (Proscar) 5 mg DAILY GTB Last administered on 09/15/18 09:15; Admin Dose 5 MG; Start 09/13/18 at 09:00 Acetaminophen/ Hydrocodone Bitart ([place] (5/325)) 1 tab Q6H PRN PO MODERATE PAIN LEVEL 4-6; Start 09/12/18 at 21:30 Lorazepam (Ativan) 0.5 mg Q6H PRN GTB ANXIETY Last administered on 09/15/18 01:44; Admin Dose 0.5 MG; Start 09/12/18 at 21:30 Multivit/Ca Carb/ B Cmplx/FA/Prenat (Ofe-Mine) 1 tab DAILY GTB Last administered on 09/15/18 09:14; Admin Dose 1 TAB; Start 09/13/18 at 09:00 Ondansetron HCl (Zofran Tab) 4 mg Q6H PRN GTB NAUSEA AND/OR VOMITING; Start 09/12/18 at 21:30 Zinc Oxide (Zinc Oxide Oint) 1 applic DAILY TOP Last administered on 09/15/18 09:16; Admin Dose 1 APPLIC; Start 09/13/18 at 09:00 Heparin Sodium (Porcine) (Heparin (1000 Units/ml)) 4,000 unit AFTER DIALYSIS CATHETER Last administered on 09/14/18 10:46; Admin Dose 3,100 UNIT; Start 09/13/18 at 16:30 Albumin Human 100 ml @ 100 mls/hr WITH DIALYSIS PRN IV SBP <90 DURING DIALYSIS Last administered on 09/14/18 08:36; Admin Dose 100 MLS/HR; Start 09/13/18 at 16:30 Sodium Chloride (NS) -To prime the dialy... DIRECTED FOR HD PRN IV HD; Start 09/13/18 at 16:30 Epoetin Tim (Epogen (Esrd)) 8,000 units TuThSa@17 SC Last administered on 09/13/18 17:48; Admin Dose 8,000 UNITS; Start 09/13/18 at 17:00 Guaifenesin/ Dextromethorphan (Robitussin Dm Liquid Cup) 5 ml Q4H PRN PO Cough Last administered on 09/15/18 05:55; Admin Dose 5 ML; Start 09/14/18 at 22:00 Vancomycin HCl (Vancomycin Oral Syringe) 125 mg Q6 PO Last administered on 09/16/18 06:10; Admin Dose 125 MG; Start 09/15/18 at 12:00 Metronidazole 100 ml @ 100 mls/hr Q6 IVPB Last administered on 09/16/18 06:11; Admin Dose 100 MLS/HR; Start 09/15/18 at 12:00 Ferric Sodium Gluconate Complex 125 mg/Sodium Chloride 110 ml @ 110 mls/hr DAILY@1300 IVPB Last administered on 09/15/18 13:18; Admin Dose 110 MLS/HR; Start 09/15/18 at 13:00; Stop 09/19/18 at 13:59 Midodrine (Proamatine) 5 mg TID@,,17 PO Last administered on 09/15/18 17:54; Admin Dose 5 MG; Start 09/15/18 at 17:00 Lansoprazole (Prevacid) 30 mg DAILY@06 PEG Last administered on 09/16/18 06:10; Admin Dose 30 MG; Start 09/16/18 at 06:00 ALVARO ROBLERO Sep 16, 2018 08:24
[2018-09-16] MEDS: ESCITALOPRAM 10 MG TAB GTB SCH (08:38)
[2018-09-16] MEDS: MULTIVIT/CA CARB/B CMPLX/FA TAB GTB SCH (08:38)
[2018-09-16] MEDS: COLLAGENASE 5 GM (UD JAR) TOP SCH ×2 (08:38→20:57)
[2018-09-16] MEDS: ASCORBIC ACID 250 MG TAB GTB SCH (08:38)
[2018-09-16] MEDS: FINASTERIDE 5 MG TAB GTB SCH (08:38)
[2018-09-16] MEDS: MIDODRINE 5 MG TAB PO SCH ×3 (08:39→17:26)
[2018-09-16] MEDS: DOCUSATE SODIUM 10 MG/ML (10ML CUP) GTB SCH ×2 (08:39→20:56)
[2018-09-16] MEDS: ZINC OXIDE 20% 30 GM OINT TOP SCH (08:40)
[2018-09-16] MEDS: BALSAM PERU/CASTOR OIL 60 GM TUBE TOP SCH (08:40)
--- NOTE | 2018-09-16 09:14 | CONS ---
Consult Date/Type/Reason Admit Date/Time Sep 12, 2018 at 12:05 Initial Consult Date 09/13/18 Requesting Provider: RUBÉN BENITO MD Date/Time of Note DATE: 09/16/18 TIME: 09:11 Subjective NO acute events - pt debilitated - HD planned today - paced 100% with appropriate function. Per nurse: no F/C/N/V/D - no CP now Objective Vitals Vital Signs Date Temp Pulse Resp B/P (MAP) Pulse Ox O2 O2 Flow FiO2 Time Delivery Rate 09/16/18 99.0 65 20 126/61 100 07:58 (82) 09/16/18 35 05:26 09/15/18 Mechanical 16:04 Ventilator Intake and Output 09/15/18 09/15/18 09/16/18 1515:00 23:00 07:00 IntakeIntake Total 200 ml 1020 ml 780 ml OutputOutput Total 150 ml 400 ml BalanceBalance 200 ml 870 ml 380 ml Exam General: WN/WD/NAD, AOx 0 malnurished HEENT: Unicetric/atraumatic/EOMI (does not follow commands) NECK: trach Lymph: no lymphadenopathy HEART: regular with no S3, II/ systolic murmur at apex, paced LUNGS: Coarse sounds ABD: soft, NT, ND, +BS : Intact Neuro: non focal SKIN: chronic changes EXT: trace edema Results/Medications Result Diagram: 09/14/1852209/14/18522 Home Meds Reported Medications Ondansetron Hcl* (Ondansetron Hcl* Liq) 4 Mg/5 Ml Solution, 4 MG GTB Q6H PRN for NAUSEA AND/OR VOMITING, ML 09/12/18 Zinc Oxide* (Zinc Oxide*) 20%-30GM Oint, 1 APPLIC TOP DAILY, TUB 09/12/18 Ascorbic Acid* (Vitamin C*) 500 Mg Capsule.sa, 250 MG GTB DAILY, CAP 09/12/18 Multivit/Ca Carb/B Cmplx/Fa* (Ofe-Mine*) 1 Tab Tab, 1 TAB GTB DAILY, TAB 09/12/18 Protein Supplement (Promod) 946 Ml Liquid, 30 ML GTB BID 09/12/18 Sodium Chloride (Saline Nasal [place]) 30 Ml [place], 2 SPRAYS NASAL DAILY, SPRAY 09/12/18 Hydrocodone/Acetaminophen ([place] 5-325 Tablet) 1 Each Tablet, 1 EACH PO Q6 PRN for SEVERE PAIN LEVEL 7-10, TAB 09/12/18 Escitalopram Oxalate* (Lexapro*) 10 Mg Tablet, 10 MG GTB DAILY, #30 TAB 09/12/18 Ipratropium-Albuterol (Ipratropium-Albuterol) 0.5-3 Mg/3 Ml Ampul.neb, 3 ML INHALATION Q4 PRN for ELEVATED BLOOD PRESSURE, #30 VIAL 09/12/18 Hydralazine Hcl* (Hydralazine Hcl*) 10 Mg Tablet, 20 MG GTB Q4 PRN for ELEVATED BLOOD PRESSURE, #60 TAB HOLD FOR SBP<110 OR HR<60 09/12/18 Glucagon,Human Recombinant (Glucagen) 1 Mg/1 Ml Vial, 1 MG IJ DAILY, VIAL 09/12/18 Ertapenem Sodium (Invanz) 1 Gm Vial, 500 MG IM DAILY for 6 Days, VIAL START RX ON 09-11-18 TO 09-17-18 09/12/18 Lansoprazole* (Lansoprazole*) 30 Mg Capsule., 30 MG GTB DAILY, CAP 08/28/18 Epoetin genesis* (Epogen*) 4,000 Unit/1 Ml Vial, 8000 UNIT SC CLEVE, VIAL 08/28/18 Lorazepam* (Lorazepam*) 1 Mg Tablet, 1 MG NGT Q6 PRN for ANXIETY, #60 TAB 08/13/18 Docusate Sodium* (Docusate Sodium* Liq) 50 Mg/5 Ml Liquid, 100 MG GTB BID, ML 08/13/18 Collagenase* (Santyl*) 30 Gm Oint..gm., 1 APPLIC TOP BID PRN for PRN, #1 TUB 08/13/18 Balsam [place] Oil (Venelex Ointment) 60 Gm Oint..gm., 1 APPLIC TOP NEEDED PRN for PRN, #1 TUB 08/13/18 Allopurinol* (Allopurinol*) 100 Mg Tablet, 100 MG GTB DAILY, TAB 08/13/18 Finasteride* (Finasteride*) 5 Mg Tablet, 5 MG GTB DAILY, TAB 07/18/18 Discontinued Reported Medications Ondansetron Hcl* (Ondansetron Hcl* Liq) 4 Mg/5 Ml Solution, 4 MG IV* Q6H PRN for NAUSEA AND/OR VOMITING, ML 08/28/18 Nifedipine* (Procardia*) 20 Mg Cap, 20 MG PO Q8, CAP 08/28/18 Guaifenesin* (Robitussin*) 100 Mg/5 Ml Syrup, 200 MG GTB Q8 PRN for COUGH, ML 08/28/18 Albuterol Sulfate* (Albuterol Sulfate* Neb) 0.083%-3 Ml Neb, 2.5 MG NEB Q4 PRN for WHEEZING AND SOB, #30 VIAL 08/28/18 Acetaminophen* (Acetaminophen* Susp) 325 Mg/10.15 Ml Solution, 650 MG NGT Q6 PRN for PAIN, ML 08/28/18 Insulin Aspart* (Novolog Insulin Pen*) 100 Unit/Ml Soln, 0 SC .SLIDING SCALE AC, EA SLIDING SCALE 0-120 = 0 UNITS 121-150 = 0 UNITS 151-200 = 1 UNITS 201-250 = 2 UNITS 251-300 = 3 UNITS 301-350 = 4 UNITS 351-400 = 5 UNITS CALL PROVIDER IF OVER 400 AND GIVE 6 UNITS 08/13/18 Nystatin (Nystatin) 100,000 Unit/1 Ml Oral.susp, 10 ML PO TID, #60 ML 08/13/18 Morphine Sulfate* (Morphine* Liq) 10 Mg/5 Ml Solution, 6 MG NGT Q4H PRN for PAIN, ML 08/13/18 Hydralazine Hcl* (Apresoline* Pediatric IV Syringe) 1 Mg/Ml Soln, 20 MG IV Q4 PRN for ELEVATED BLOOD PRESSURE, EA INFUSE OVER 3-5 MIN MAX INFUSION 5MG/MIN CHECK BP UNTIL STABLE 08/13/18 Fentanyl Citrate/Pf (Sublimaze) 50 Mcg/1 Ml Ampul, 25 MCG IV* Q2HWA PRN for PAIN, AMP 08/13/18 Famotidine* (Famotidine*) 20 Mg Tablet, 20 MG NGT DAILY, #30 TAB 08/13/18 Doxazosin Mesylate* (Doxazosin Mesylate*) 4 Mg Tablet, 4 MG NGT HS, TAB 07/18/18 Hydrochlorothiazide* (Hydrochlorothiazide*) 12.5 Mg Tablet, 12.5 MG NGT DAILY, #30 TAB 07/18/18 Pantoprazole* (Protonix*) 40 Mg Tablet.dr, 40 MG NGT DAILY, TAB 02/13/18 Atorvastatin* (Atorvastatin*) 40 Mg Tablet, 40 MG NGT QHS, #30 TAB 02/13/18 Medications Current Medications Albuterol/ Ipratropium (Duoneb) 3 ml Q4H RESP THERAPY PRN HHN SHORTNESS OF BREATH Last administered on 09/14/18 21:38; Admin Dose 3 ML; Start 09/12/18 at 20:30 Ascorbic Acid (Vitamin C) 250 mg DAILY GTB Last administered on 09/16/18 08:38; Admin Dose 250 MG; Start 09/13/18 at 09:00 Collagenase (Santyl) 1 applic BID TOP Last administered on 09/16/18 08:38; Admin Dose 1 APPLIC; Start 09/13/18 at 09:00 Docusate Sodium (Colace Liquid Cup) 50 mg BID GTB Last administered on 09/15/18 21:37; Admin Dose 50 MG; Start 09/13/18 at 09:00 Ertapenem 0.5 gm/ Sodium Chloride 100 ml @ 200 mls/hr Q24H IVPB Last administered on 09/15/18 21:36; Admin Dose 200 MLS/HR; Start 09/12/18 at 22:00; Stop 09/17/18 at 21:59 Escitalopram Oxalate (Lexapro) 10 mg DAILY GTB Last administered on 09/16/18 08:38; Admin Dose 10 MG; Start 09/13/18 at 09:00 Finasteride (Proscar) 5 mg DAILY GTB Last administered on 09/16/18 08:38; Admin Dose 5 MG; Start 09/13/18 at 09:00 Acetaminophen/ Hydrocodone Bitart ([place] (5/325)) 1 tab Q6H PRN PO MODERATE PAIN LEVEL 4-6; Start 09/12/18 at 21:30 Lorazepam (Ativan) 0.5 mg Q6H PRN GTB ANXIETY Last administered on 09/15/18at 01:44; Admin Dose 0.5 MG; Start 09/12/18 at 21:30 Multivit/Ca Carb/ B Cmplx/FA/Prenat (Ofe-Mine) 1 tab DAILY GTB Last administered on 09/16/18 08:38; Admin Dose 1 TAB; Start 09/13/18 at 09:00 Ondansetron HCl (Zofran Tab) 4 mg Q6H PRN GTB NAUSEA AND/OR VOMITING; Start 09/12/18 at 21:30 Zinc Oxide (Zinc Oxide Oint) 1 applic DAILY TOP Last administered on 09/16/18 08:40; Admin Dose 1 APPLIC; Start 09/13/18 at 09:00 Heparin Sodium (Porcine) (Heparin (1000 Units/ml)) 4,000 unit AFTER DIALYSIS CATHETER Last administered on 09/14/18 10:46; Admin Dose 3,100 UNIT; Start 09/13/18 at 16:30 Albumin Human 100 ml @ 100 mls/hr WITH DIALYSIS PRN IV SBP <90 DURING DIALYSIS Last administered on 09/14/18 08:36; Admin Dose 100 MLS/HR; Start 09/13/18 at 16:30 Sodium Chloride (NS) -To prime the dialy... DIRECTED FOR HD PRN IV HD; Start 09/13/18 at 16:30 Epoetin Genesis (Epogen (Esrd)) 8,000 units TuThSa@17 SC Last administered on 17:48; Admin Dose 8,000 UNITS; Start 09/13/18 at 17:00 Guaifenesin/ Dextromethorphan (Robitussin Dm Liquid Cup) 5 ml Q4H PRN PO Cough Last administered on 09/15/18 05:55; Admin Dose 5 ML; Start 09/14/18 at 22:00 Vancomycin HCl (Vancomycin Oral Syringe) 125 mg Q6 PO Last administered on 06:10; Admin Dose 125 MG; Start 09/15/18 at 12:00 Metronidazole 100 ml @ 100 mls/hr Q6 IVPB Last administered on 09/16/18 06:11; Admin Dose 100 MLS/HR; Start 09/15/18 at 12:00 Ferric Sodium Gluconate Complex 125 mg/Sodium Chloride 110 ml @ 110 mls/hr DAILY@1300 IVPB Last administered on 09/15/18 13:18; Admin Dose 110 MLS/HR; Start 09/15/18 at 13:00; Stop 09/19/18 at 13:59 Midodrine (Proamatine) 5 mg TID@09,13,17 PO Last administered on 09/16/18at 08:39; Admin Dose 5 MG; Start 09/15/18 at 17:00 Lansoprazole (Prevacid) 30 mg DAILY@06 PEG Last administered on 09/16/18at 06:10; Admin Dose 30 MG; Start 09/16/18 at 06:00 Assessment/Plan Hospital Course (Demo Recall) 1. Pacer - with good function, 100% paced now. 2. Abnormal electrocardiogram, assess for acute coronary syndrome - r/o Mi. 3. Hypertension, controlled - con't to adjust Rx and HD. BP stable. HD now. 4. History of open heart surgery - no CP now. 5. End-stage renal disease on hemodialysis- done day prior - BP low now. 6. Shortness of breath - intubated now. Con't resp Rx. 7. Congestive heart failure by x-ray - remove fluid as tolerated. 8. Diabetes mellitus- on meds, keep euglycemic. 9. Anemia.- h/o bleeding. WILLIAM OJEDA MD Sep 16, 2018 09:14
--- NOTE | 2018-09-16 10:36 | CONS ---
Assessment/Plan Assessment/Plan Assessment/Plan (Daily) 1. acute fluid overload due to inadquate HD due to hypotension 2. Severe anemia concerned about GI bleeding 3. Hypokalemia 4. ESRD on HD on Sat, , saturday schedule at [facility] [place] 5. h/o HTN 6. h/o HL 7. H/o Prostate CA 8. H/O Chronic respiratory failure s/p tracheostomy in place 9. iron deficiency anemia Plan: s/p HD today 550 cc removed, will help of albumin and NS help midodrine 5mg pO TID has been ordered for BP support Epogen 8000 units SQ TTS we will keep pt on Sat, , saturday schedule IV Ferrlectin x 5 doses for iron deficiency anemia GI following will follow up Consultation Date/Type/Reason Admit Date/Time Sep 12, 2018 at 12:05 Initial Consult Date 09/13/18 Type of Consult NEPHROLOGY Requesting Provider: RUBÉN BENITO MD Date/Time of Note DATE: 09/16/18 TIME: 10:36 Exam/Review of Systems Exam Vitals Vital Signs Date Temp Pulse Resp B/P (MAP) Pulse Ox O2 O2 Flow FiO2 Time Delivery Rate 09/16/18 99.0 65 20 126/61 100 07:58 (82) 09/16/18 35 05:26 09/15/18 Mechanical 16:04 Ventilator Intake and Output 09/15/18 09/15/18 09/16/18 1515:00 23:00 07:00 IntakeIntake Total 200 ml 1020 ml 780 ml OutputOutput Total 150 ml 400 ml BalanceBalance 200 ml 870 ml 380 ml Exam Constitutional: non-verbal, distress ENMT: other (+ tracheostomy on venitlaotr ) Respiratory: diminished breath sounds, other (Bilateral coarse BS+) Cardiovascular: regular rate and rhythm Gastrointestinal: soft, other ( G tube in place ) Musculoskeletal: nl extremities to inspection Neurological: other (non verbal, on ventilator ) Lymph: nl lymph no Results Result Diagram: 09/14/1852209/14/18522 Medications Medication Current Medications Albuterol/ Ipratropium (Duoneb) 3 ml Q4H RESP THERAPY PRN HHN SHORTNESS OF BREATH Last administered on 09/14/18at 21:38; Admin Dose 3 ML; Start 09/12/18 at 20:30 Ascorbic Acid (Vitamin C) 250 mg DAILY GTB Last administered on 09/16/18 08:38; Admin Dose 250 MG; Start 09/13/18 at 09:00 Collagenase (Santyl) 1 applic BID TOP Last administered on 09/16/18 08:38; Admin Dose 1 APPLIC; Start 09/13/18 at 09:00 Docusate Sodium (Colace Liquid Cup) 50 mg BID GTB Last administered on 09/15/18 21:37; Admin Dose 50 MG; Start 09/13/18 at 09:00 Ertapenem 0.5 gm/ Sodium Chloride 100 ml @ 200 mls/hr Q24H IVPB Last admini stered on 09/15/18 21:36; Admin Dose 200 MLS/HR; Start 09/12/18 at 22:00; Stop 09/17/18 at 21:59 Escitalopram Oxalate (Lexapro) 10 mg DAILY GTB Last administered on 09/16/18 08:38; Admin Dose 10 MG; Start 09/13/18 at 09:00 Finasteride (Proscar) 5 mg DAILY GTB Last administered on 09/16/18 08:38; Admin Dose 5 MG; Start 09/13/18 at 09:00 Acetaminophen/ Hydrocodone Bitart ([place] (5/325)) 1 tab Q6H PRN PO MODERATE PAIN LEVEL 4-6; Start 09/12/18 at 21:30 Lorazepam (Ativan) 0.5 mg Q6H PRN GTB ANXIETY Last administered on 09/15/18 01:44; Admin Dose 0.5 MG; Start 09/12/18 at 21:30 Multivit/Ca Carb/ B Cmplx/FA/Prenat (Ofe-Mine) 1 tab DAILY GTB Last administered on 09/16/18 08:38; Admin Dose 1 TAB; Start 09/13/18 at 09:00 Ondansetron HCl (Zofran Tab) 4 mg Q6H PRN GTB NAUSEA AND/OR VOMITING; Start 09/12/18 at 21:30 Zinc Oxide (Zinc Oxide Oint) 1 applic DAILY TOP Last administered on 09/16/18 08:40; Admin Dose 1 APPLIC; Start 09/13/18 at 09:00 Heparin Sodium (Porcine) (Heparin (1000 Units/ml)) 4,000 unit AFTER DIALYSIS CATHETER Last administered on 09/14/18 10:46; Admin Dose 3,100 UNIT; Start 09/13/18 at 16:30 Albumin Human 100 ml @ 100 mls/hr WITH DIALYSIS PRN IV SBP <90 DURING DIALYSIS Last administered on 09/14/18 08:36; Admin Dose 100 MLS/HR; Start 09/13/18 at 16:30 Sodium Chloride (NS) -To prime the dialy... DIRECTED FOR HD PRN IV HD; Start 09/13/18 at 16:30 Epoetin Tim (Epogen (Esrd)) 8,000 units TuThSa@17 SC Last administered on 09/13/18 17:48; Admin Dose 8,000 UNITS; Start 09/13/18 at 17:00 Guaifenesin/ Dextromethorphan (Robitussin Dm Liquid Cup) 5 ml Q4H PRN PO Cough Last administered on 09/15/18 05:55; Admin Dose 5 ML; Start 09/14/18 at 22:00 Vancomycin HCl (Vancomycin Oral Syringe) 125 mg Q6 PO Last administered on 09/16/18 06:10; Admin Dose 125 MG; Start 09/15/18 at 12:00 Metronidazole 100 ml @ 100 mls/hr Q6 IVPB Last administered on 09/16/18 06:11; Admin Dose 100 MLS/HR; Start 09/15/18 at 12:00 Ferric Sodium Gluconate Complex 125 mg/Sodium Chloride 110 ml @ 110 mls/hr DAILY@1300 IVPB Last administered on 09/15/18 13:18; Admin Dose 110 MLS/HR; Start 09/15/18 at 13:00; Stop 09/19/18 at 13:59 Midodrine (Proamatine) 5 mg TID@,,17 PO Last administered on 09/16/18 08:39; Admin Dose 5 MG; Start 09/15/18 at 17:00 Lansoprazole (Prevacid) 30 mg DAILY@06 PEG Last administered on 09/16/18 06:10; Admin Dose 30 MG; Start 09/16/18 at 06:00 FELICIANO RAMIREZ MD Sep 16, 2018 10:36
[2018-09-16] MEDS: SOD FERRIC GLUC COMPLX 125 MG in SOD CHLORIDE 0.9% 100 ML IVPB SCH (12:28)
--- NOTE | 2018-09-16 12:29 | PN ---
Date/Time of Note Date/Time of Note DATE: 09/16/18 TIME: 12:26 Assessment/Plan VTE Prophylaxis Risk score (from [facility])>0 risk: 3 SCD applied (from [facility]): Yes Pharmacological prophylaxis: NA/contraindicated Pharm contraindication: bleeding Lines/Catheters IV [facility]from [facility] [place] Urinary Cath still in place: No Assessment/Plan Hospital Course Assessment/Plan -C. difficile colitis, continue Vanco via G-tube. Dr. Rebolledo is asked to see patient in infection disease consultation. -Pancytopenia, status post blood transfusion. Dr. Coleman is following him here in hematology consultation. Dr. Hedrick is following in gastroenterology consultation. Stool for OB is negative. 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 Continue Prevacid. -Coronary artery disease status post PCI. Patient with pancytopenia with history of recurrent gastrointestinal bleed, unfortunately cannot be giving aspirin or Plavix. -Permanent pacemaker -Ventilator dependent respiratory failure. Dr. Mendoza is following in pulmonology consultation. -Hemodialysis dependent end-stage renal disease. Continue hemodialysis. Dr. Mari is following in nephrology consultation. -Dysphagia with G-tube -Sacral decubitus. Continue local wound care. -Depression. Continue Lexapro. -History of prostate cancer Further recommendations based on clinical course. Plan of care discussed with Dr. Brown. Result Diagram: 09/16/18 1056 09/16/18 1056 Results 24hrs Laboratory Tests Test 09/16/18 10:56 White Blood Count 7.5 # Red Blood Count 2.22 L Hemoglobin 7.2 L Hematocrit 22.4 L Mean Corpuscular Volume 100.9 Mean Corpuscular Hemoglobin 32.4 Mean Corpuscular Hemoglobin Concent 32.1 Red Cell Distribution Width 24.5 H Platelet Count 35 L Mean Platelet Volume Immature Granulocytes % 18.500 H Neutrophils % Lymphocytes % Monocytes % Eosinophils % Basophils % Nucleated Red Blood Cells % 6.6 H Immature Granulocytes # 1.380 H Neutrophils # Lymphocytes # Monocytes # Eosinophils # Basophils # Nucleated Red Blood Cells # Sodium Level 135 Potassium Level 3.1 L Chloride Level 97 Carbon Dioxide Level 22 Anion Gap 16 H Blood Urea Nitrogen 103 H Creatinine 2.40 H Est Glomerular Filtrat Rate mL/min Glucose Level 122 Calcium Level 7.5 L Exam/Review of Systems Exam Vitals Vital Signs Date Temp Pulse Resp B/P (MAP) Pulse Ox O2 O2 Flow FiO2 Time Delivery Rate 09/16/18 99.1 60 20 106/55 100 12:22 (72) 09/16/18 35 05:26 09/15/18 Mechanical 16:04 Ventilator Intake and Output 09/15/18 09/15/18 09/16/18 1515:00 23:00 07:00 IntakeIntake Total 200 ml 1020 ml 780 ml OutputOutput Total 150 ml 400 ml BalanceBalance 200 ml 870 ml 380 ml Exam Constitutional: alert, non-verbal Respiratory: diminished breath sounds Cardiovascular: other (PPM) Gastrointestinal: soft, non-tender, other (G-tube) Extremities: normal pulses Neurological: confused Results Results 24hrs Laboratory Tests Test 09/16/18 10:56 White Blood Count 7.5 # Red Blood Count 2.22 L Hemoglobin 7.2 L Hematocrit 22.4 L Mean Corpuscular Volume 100.9 Mean Corpuscular Hemoglobin 32.4 Mean Corpuscular Hemoglobin Concent 32.1 Red Cell Distribution Width 24.5 H Platelet Count 35 L Mean Platelet Volume Immature Granulocytes % 18.500 H Neutrophils % Lymphocytes % Monocytes % Eosinophils % Basophils % Nucleated Red Blood Cells % 6.6 H Immature Granulocytes # 1.380 H Neutrophils # Lymphocytes # Monocytes # Eosinophils # Basophils # Nucleated Red Blood Cells # Sodium Level 135 Potassium Level 3.1 L Chloride Level 97 Carbon Dioxide Level 22 Anion Gap 16 H Blood Urea Nitrogen 103 H Creatinine 2.40 H Est Glomerular Filtrat Rate mL/min Glucose Level 122 Calcium Level 7.5 L Medications Medication Current Medications Albuterol/ Ipratropium (Duoneb) 3 ml Q4H RESP THERAPY PRN HHN SHORTNESS OF BREATH Last administered on 09/14/18at 21:38; Admin Dose 3 ML; Start 09/12/18 at 20:30 Ascorbic Acid (Vitamin C) 250 mg DAILY GTB Last administered on 09/16/18at 08:38; Admin Dose 250 MG; Start 09/13/18 at 09:00 Collagenase (Santyl) 1 applic BID TOP Last administered on 09/16/18 08:38; Admin Dose 1 APPLIC; Start 09/13/18 at 09:00 Docusate Sodium (Colace Liquid Cup) 50 mg BID GTB Last administered on 09/15/18at 21:37; Admin Dose 50 MG; Start 09/13/18 at 09:00 Ertapenem 0.5 gm/ Sodium Chloride 100 ml @ 200 mls/hr Q24H IVPB Last administered on 09/15/18 21:36; Admin Dose 200 MLS/HR; Start 09/12/18 at 22:00; Stop 09/17/18 at 21:59 Escitalopram Oxalate (Lexapro) 10 mg DAILY GTB Last administered on 09/16/18 08:38; Admin Dose 10 MG; Start 09/13/18 at 09:00 Finasteride (Proscar) 5 mg DAILY GTB Last administered on 09/16/18 08:38; Admin Dose 5 MG; Start 09/13/18 at 09:00 Acetaminophen/ Hydrocodone Bitart ([place] (5/325)) 1 tab Q6H PRN PO MODERATE PAIN LEVEL 4-6; Start 09/12/18 at 21:30 Lorazepam (Ativan) 0.5 mg Q6H PRN GTB ANXIETY Last administered on 09/15/18 01:44; Admin Dose 0.5 MG; Start 09/12/18 at 21:30 Multivit/Ca Carb/ B Cmplx/FA/Prenat (Ofe-Mine) 1 tab DAILY GTB Last administered on 09/16/18 08:38; Admin Dose 1 TAB; Start 09/13/18 at 09:00 Ondansetron HCl (Zofran Tab) 4 mg Q6H PRN GTB NAUSEA AND/OR VOMITING; Start 09/12/18 at 21:30 Zinc Oxide (Zinc Oxide Oint) 1 applic DAILY TOP Last administered on 09/16/18 08:40; Admin Dose 1 APPLIC; Start 09/13/18 at 09:00 Heparin Sodium (Porcine) (Heparin (1000 Units/ml)) 4,000 unit AFTER DIALYSIS CATHETER Last administered on 09/14/18 10:46; Admin Dose 3,100 UNIT; Start 09/13/18 at 16:30 Albumin Human 100 ml @ 100 mls/hr WITH DIALYSIS PRN IV SBP <90 DURING DIALYSIS Last administered on 09/14/18 08:36; Admin Dose 100 MLS/HR; Start 09/13/18 at 16:30 Sodium Chloride (NS) -To prime the dialy... DIRECTED FOR HD PRN IV HD; Start 09/13/18 at 16:30 Epoetin Tim (Epogen (Esrd)) 8,000 units TuThSa@17 SC Last administered on 09/13/18at 17:48; Admin Dose 8,000 UNITS; Start 09/13/18 at 17:00 Guaifenesin/ Dextromethorphan (Robitussin Dm Liquid Cup) 5 ml Q4H PRN PO Cough Last administered on 09/15/18at 05:55; Admin Dose 5 ML; Start 09/14/18 at 22:00 Vancomycin HCl (Vancomycin Oral Syringe) 125 mg Q6 PO Last administered on 09/16/18at 06:10; Admin Dose 125 MG; Start 09/15/18 at 12:00 Metronidazole 100 ml @ 100 mls/hr Q6 IVPB Last administered on 09/16/18at 06:11; Admin Dose 100 MLS/HR; Start 09/15/18 at 12:00 Ferric Sodium Gluconate Complex 125 mg/Sodium Chloride 110 ml @ 110 mls/hr JOSE ALBERTO LY@1300 IVPB Last administered on 09/15/18at 13:18; Admin Dose 110 MLS/HR; Start 09/15/18 at 13:00; Stop 09/19/18 at 13:59 Midodrine (Proamatine) 5 mg TID@,,17 PO Last administered on 09/16/18at 0 8:39; Admin Dose 5 MG; Start 09/15/18 at 17:00 Lansoprazole (Prevacid) 30 mg DAILY@06 PEG Last administered on 09/16/18at 06:10; Admin Dose 30 MG; Start 09/16/18 at 06:00 RADHA FISHER Sep 16, 2018 12:29
--- NOTE | 2018-09-16 14:55 | CONS ---
Consult Date/Type/Reason Admit Date/Time Sep 12, 2018 at 12:05 Initial Consult Date 09/13/18 Type of Consult Pulmonary Requesting Provider: RUBÉN BENITO MD Date/Time of Note DATE: 09/16/18 TIME: 14:54 Subjective Patient stable no new events. Objective Vital Signs Date Temp Pulse Resp B/P (MAP) Pulse Ox O2 O2 Flow FiO2 Time Delivery Rate 09/16/18 60 22 100 35 13:05 09/16/18 99.1 106/55 12:22 (72) 09/15/18 Mechanical 16:04 Ventilator Intake and Output 09/15/18 09/15/18 09/16/18 1515:00 23:00 07:00 IntakeIntake Total 200 ml 1020 ml 780 ml OutputOutput Total 150 ml 400 ml BalanceBalance 200 ml 870 ml 380 ml Exam PHYSICAL EXAMINATION: GENERAL: Elderly-appearing gentleman on mechanical ventilation. He appears comfortable at rest, no acute distress. VITAL SIGNS: NECK: Trach site clean and intact. CARDIAC: S1, S2, no added sounds or murmurs. CHEST: Diminished air entry bilaterally. ABDOMEN: Soft, nontender. No guarding or rebound. EXTREMITIES: No cyanosis, clubbing or edema. NEUROLOGIC: Generalized weakness. Vent Setting Ventilator Support Mode: AC Fraction of Inspired Oxygen pe: 35 Positive End Expiratory Pressu: 5.0 Results/Medications Result Diagram: 09/16/18 1056 09/16/18 1056 Results 24 hrs Laboratory Tests Test 09/16/18 10:56 White Blood Count 7.5 # Red Blood Count 2.22 L Hemoglobin 7.2 L Hematocrit 22.4 L Mean Corpuscular Volume 100.9 Mean Corpuscular Hemoglobin 32.4 Mean Corpuscular Hemoglobin Concent 32.1 Red Cell Distribution Width 24.5 H Platelet Count 35 L Mean Platelet Volume Immature Granulocytes % 18.500 H Neutrophils % Segmented Neutrophils % (Manual) 37 L Band Neutrophils % (Manual) 35 H Lymphocytes % Lymphocytes % (Manual) 12 L Reactive Lymphocytes % (Manual) 1 H Monocytes % Monocytes % (Manual) 1 Eosinophils % Basophils % Metamyelocytes % (manual) 9 H Myelocytes % (Manual) 2 H Promyelocytes % (Manual) 3 H Nucleated Red Blood Cells % 6 H Immature Granulocytes # 1.380 H Neutrophils # Neutrophils # (Manual) 3.0 Band Neutrophils # 2.6 H Lymphocytes (Manual) 0.9 Lymphocytes # Reactive Lymphocytes # 0.0 Monocytes # Monocytes # (Manual) 0.0 L Eosinophils # Basophils # Metamyelocytes # 0.6 H Myelocytes # 0.1 H Promyelocytes # 0.2 H Nucleated Red Blood Cells # Toxic Granulation 1+ Platelet Estimate SIG DECREASED Giant Platelets 4 H Polychromasia 1+ Poikilocytosis 1+ Anisocytosis 2+ Macrocytosis 2+ Spherocytes 1+ Sodium Level 135 Potassium Level 3.1 L Chloride Level 97 Carbon Dioxide Level 22 Anion Gap 16 H Blood Urea Nitrogen 103 H Creatinine 2.40 H Est Glomerular Filtrat Rate mL/min Glucose Level 122 Calcium Level 7.5 L Medications Current Medications Albuterol/ Ipratropium (Duoneb) 3 ml Q4H RESP THERAPY PRN HHN SHORTNESS OF BREATH Last administered on 09/14/18 21:38; Admin Dose 3 ML; Start 09/12/18 at 20:30 Ascorbic Acid (Vitamin C) 250 mg DAILY GTB Last administered on 09/16/18 08:38; Admin Dose 250 MG; Start 09/13/18 at 09:00 Collagenase (Santyl) 1 applic BID TOP Last administered on 09/16/18 08:38; Admin Dose 1 APPLIC; Start 09/13/18 at 09:00 Docusate Sodium (Colace Liquid Cup) 50 mg BID GTB Last administered on 09/15/18 21:37; Admin Dose 50 MG; Start 09/13/18 at 09:00 Ertapenem 0.5 gm/ Sodium Chloride 100 ml @ 200 mls/hr Q24H IVPB Last adminis tered on 09/15/18 21:36; Admin Dose 200 MLS/HR; Start 09/12/18 at 22:00; Stop 09/17/18 at 21:59 Escitalopram Oxalate (Lexapro) 10 mg DAILY GTB Last administered on 09/16/18 08:38; Admin Dose 10 MG; Start 09/13/18 at 09:00 Finasteride (Proscar) 5 mg DAILY GTB Last administered on 09/16/18 08:38; Admin Dose 5 MG; Start 09/13/18 at 09:00 Acetaminophen/ Hydrocodone Bitart ([place] (5/325)) 1 tab Q6H PRN PO MODERATE PAIN LEVEL 4-6; Start 09/12/18 at 21:30 Lorazepam (Ativan) 0.5 mg Q6H PRN GTB ANXIETY Last administered on 09/15/18 01:44; Admin Dose 0.5 MG; Start 09/12/18 at 21:30 Multivit/Ca Carb/ B Cmplx/FA/Prenat (Ofe-Mine) 1 tab DAILY GTB Last administered on 09/16/18 08:38; Admin Dose 1 TAB; Start 09/13/18 at 09:00 Ondansetron HCl (Zofran Tab) 4 mg Q6H PRN GTB NAUSEA AND/OR VOMITING; Start 09/12/18 at 21:30 Zinc Oxide (Zinc Oxide Oint) 1 applic DAILY TOP Last administered on 09/16/18 08:40; Admin Dose 1 APPLIC; Start 09/13/18 at 09:00 Heparin Sodium (Porcine) (Heparin (1000 Units/ml)) 4,000 unit AFTER DIALYSIS CATHETER Last administered on 09/14/18 10:46; Admin Dose 3,100 UNIT; Start 09/13/18 at 16:30 Albumin Human 100 ml @ 100 mls/hr WITH DIALYSIS PRN IV SBP <90 DURING DIALYSIS Last administered on 09/14/18 08:36; Admin Dose 100 MLS/HR; Start 09/13/18 at 16:30 Sodium Chloride (NS) -To prime the dialy... DIRECTED FOR HD PRN IV HD; Start 09/13/18 at 16:30 Epoetin Tim (Epogen (Esrd)) 8,000 units TuThSa@17 SC Last administered on 09/13/18 17:48; Admin Dose 8,000 UNITS; Start 09/13/18 at 17:00 Guaifenesin/ Dextromethorphan (Robitussin Dm Liquid Cup) 5 ml Q4H PRN PO Cough Last administered on 09/15/18 05:55; Admin Dose 5 ML; Start 09/14/18 at 22:00 Vancomycin HCl (Vancomycin Oral Syringe) 125 mg Q6 PO Last administered on 09/16/18 12:28; Admin Dose 125 MG; Start 09/15/18 at 12:00 Metronidazole 100 ml @ 100 mls/hr Q6 IVPB Last administered on 2/19/19at 12:28; Admin Dose 100 MLS/HR; Start 09/15/18 at 12:00 Ferric Sodium Gluconate Complex 125 mg/Sodium Chloride 110 ml @ 110 mls/hr DAILY@1300 IVPB Last administered on 09/16/18at 12:28; Admin Dose 110 MLS/HR; Start 09/15/18 at 13:00; Stop 09/19/18 at 13:59 Midodrine (Proamatine) 5 mg TID@09,13,17 PO Last administered on 09/16/18at 12:28; Admin Dose 5 MG; Start 09/15/18 at 17:00 Lansoprazole (Prevacid) 30 mg DAILY@06 PEG Last administered on 09/16/18at 06:10; Admin Dose 30 MG; Start 09/16/18 at 06:00 Assessment/Plan Hospital Course (Demo Recall) IMPRESSION 1. Recent urinary tract infection. 2. Significant anemia with a history of gastrointestinal bleeding. 3. Recurrent pneumonias with tracheostomy. 4. End-stage renal failure on hemodialysis. Plan: 1. Continued broad spectrum antibiotics. 2. Transfusion of packed red blood cells. Monitor h/h, continue Hemonc recommendations with transfusion limits noted. Workup for multiple myeloma. 3. Gastrointestinal evaluation for ongoing gastrointestinal bleed. 4. Iron replacement. 5. Deep venous thrombosis and GI prophylaxis. Overall prognosis guarded consider addressing CODE STATUS. SPENSER RICO MD, [facility] Sep 16, 2018 14:55
--- NOTE | 2018-09-16 15:27 | CONS ---
DATE OF ADMISSION: 09/12/2018 DATE OF CONSULTATION: 09/16/2018 TYPE OF CONSULTATION: Infectious disease. REASON FOR CONSULTATION: Antibiotic management. HISTORY OF PRESENT ILLNESS: Edgar Salinas is an unfortunate 83-year-old male who was admitted through the ER with recent fever, hypertension and pancytopenia. He is status post: 1. PCI for coronary artery disease. 2. Permanent pacemaker placement. 3. Tracheostomy and G-tube placement as well as a dialysis catheter. On admission, white count was 4000, hemoglobin 7.2, platelet count 50,000. BUN and creatinine is 21/ 2.7. The patient has a history of recurrent GI bleed. He was given 1 unit of blood in the ER. GI c onsultation with Dr. Hedrick was requested. Pancytopenia, consult from Dr. Hess for that and coronar y artery disease. The patient was given aspirin and Plavix due to the history of recurrent GI bleed. The patient has respiratory failure, depression, benign prostatic hypertrophy, recurrent GI bleed d ue to erosive gastritis and also history of AV malformation, anemia of chronic disease, end-stage omaira al disease with acute on chronic renal disease. Dr. Feliciano Mari is following the patient. Current ly, this patient has C. difficile colitis. He is on oral vancomycin, pancytopenia, status post blood transfusion. Stool for OB is negative. Recurrent GI bleed due to erosive gastritis and also AV mal formation. White count today is 7.5, H and H of 7.2 and 22.4, platelet count 35,000. BUN, creatinin e is 103/2.4. PHYSICAL EXAMINATION: GENERAL: The patient is alert but nonverbal, has a trach, PEG and I believe a pacemaker. He has per manent pacemaker and is on hemodialysis. He also has C. difficile and rectocele in the rectum. VITAL SIGNS: Stable. He is afebrile. SKIN: Without generalized rash. HEENT: Within normal limits. NECK: Tracheostomy is clear and clean. CHEST: Decreased breath sounds at the bases. HEART: Without murmur or gallop. ABDOMEN: Soft, nontender without organosplenomegaly or masses. EXTREMITIES: Without cyanosis, clubbing or edema. RECTAL AND GENITAL: Deferred. NEUROLOGIC: No focal neurological abnormality. IMPRESSION AND PLAN: The patient is currently on oral vancomycin. He is on Flagyl for the same reas on. He is on ertapenem. Chest x-ray: Mildly increased interstitial edema suggesting cardiopulmonar y congestion, small left pleural effusion increased. Dr. Mendoza is following the patient as well. I will dictate my findings to Dr. Benito, Dr. Mendoza, nurse practitioner Nelly, Dr. Hedrick, Dr oZhaib Lassiter, Dr. Coleman, Dr. Yeager. Dictated By: KENDAL BLAND MD, JD/NTS Conf#: [id number] DID#: [id number] CC: RUBÉN BENITO MD; FELICIANO MARI MD;*End*
[2018-09-16] MEDS: EPOETIN 4000 UNITS/1 ML INJ (ESRD) SC SCH (17:27)
[2018-09-16] MEDS: HYDROCODONE/APAP (5/325) TAB PO PRN (18:51)
[2018-09-16] MEDS: HEPARIN 1000 UNITS/ML 10 ML INJ CATHETER SCH (20:29)
[2018-09-16] MEDS: ERTAPENEM SODIUM 0.5 GM in SOD CHLORIDE 0.9% 100 ML IVPB SCH (21:01)
[2018-09-17] VITALS (24 sets, daily range): BP systolic 96–128; BP diastolic 51–60; PULSE 55–60; RESP 16–27
[2018-09-17] MEDS: VANCOMYCIN HCL 250 MG/5ML POSYG PO SCH ×4 (01:12→17:32)
[2018-09-17] MEDS: metroNIDAZOLE 500 MG/NS (PMX) 100 ML IVPB SCH ×4 (01:12→17:32)
[2018-09-17] MEDS: LORAZEPAM 0.5 MG TAB GTB PRN (02:19)
[2018-09-17] MEDS: LANSOPRAZOLE 30 MG CAP PEG SCH (05:42)
[2018-09-17] MEDS ORDERED: POTASSIUM CHLORIDE 20 MEQ POWDER FOR ORAL SOLN GTB ONE (08:30)
[2018-09-17] MEDS: MULTIVIT/CA CARB/B CMPLX/FA TAB GTB SCH (08:41)
[2018-09-17] MEDS: FINASTERIDE 5 MG TAB GTB SCH (08:41)
[2018-09-17] MEDS: DOCUSATE SODIUM 10 MG/ML (10ML CUP) GTB SCH ×2 (08:41→20:34)
[2018-09-17] MEDS: ESCITALOPRAM 10 MG TAB GTB SCH (08:41)
[2018-09-17] MEDS: ASCORBIC ACID 250 MG TAB GTB SCH (08:41)
[2018-09-17] MEDS: COLLAGENASE 5 GM (UD JAR) TOP SCH ×2 (08:41→21:16)
[2018-09-17] MEDS: ZINC OXIDE 20% 30 GM OINT TOP SCH (08:42)
[2018-09-17] MEDS: BALSAM PERU/CASTOR OIL 60 GM TUBE TOP SCH (08:42)
[2018-09-17] MEDS: MIDODRINE 5 MG TAB PO SCH ×3 (08:45→17:31)
--- NOTE | 2018-09-17 09:48 | CONS ---
Assessment/Plan Assessment/Plan Assessment/Plan (Daily) 1. acute fluid overload due to inadquate HD due to hypotension 2. Severe anemia concerned about GI bleeding 3. Hypokalemia 4. ESRD on HD on Sat, , saturday schedule at [facility] 5. h/o HTN 6. h/o HL 7. H/o Prostate CA 8. H/O Chronic respiratory failure s/p tracheostomy in place 9. iron deficiency anemia 10. Pancytopenia Plan: K 2.8, BUN/Cr 81/1.86- KCL 40MEQ PO X 1 given , will give additional KCL 20mEQ IV x 1 dose today s/p HD yesterday 550 cc removed, will help of albumin and NS help- BP was very labile during HD, will increase midodrine to 10mg PO TID Epogen 8000 units SQ TTS we will keep pt on Sat, , saturday schedule- Next HD ordered for tomorrow Hematolgoy oncology has been following for pancytopenia which thought due to sepsis IV Ferrlectin x 5 doses for iron deficiency anemia will follow up Consultation Date/Type/Reason Admit Date/Time Sep 12, 2018 at 12:05 Initial Consult Date 09/13/18 Type of Consult NEPHROLOGY Requesting Provider: RUBÉN BENITO MD Date/Time of Note DATE: 09/17/18 TIME: 09:48 24 HR Interval Summary Free Text/Dictation s/p HD yesterdya only 500 cc removed, BP has been very labile despite being on Midodrine 5mg TID Exam/Review of Systems Exam Vitals Vital Signs Date Temp Pulse Resp B/P (MAP) Pulse Ox O2 O2 Flow FiO2 Time Delivery Rate 09/17/18 60 08:28 09/17/18 98.7 18 116/58 100 Mechanical 07:58 (77) Ventilator 09/17/18 35 05:26 Intake and Output 09/16/18 09/16/18 09/17/18 1515:00 23:00 07:00 IntakeIntake Total 880 ml 940 ml OutputOutput Total 2250 ml 150 ml BalanceBalance -1370 ml 790 ml Exam Constitutional: non-verbal, distress ENMT: other (+ tracheostomy on venitlaotr ) Respiratory: diminished breath sounds, other (Bilateral coarse BS+) Cardiovascular: regular rate and rhythm Gastrointestinal: soft, other ( G tube in place ) Musculoskeletal: nl extremities to inspection Neurological: other (non verbal, on ventilator ) Lymph: nl lymph no Results Result Diagram: 09/17/18 0509/17/18 05 Results 24hrs Laboratory Tests Test 09/16/18 10:56 09/17/18 04:00 09/17/18 05:29 White Blood Count 7.5 # 7.1 Red Blood Count 2.22 L 2.02 L Hemoglobin 7.2 L 7.0 L Hematocrit 22.4 L 21.0 L Mean Corpuscular Volume 100.9 104.0 H Mean Corpuscular Hemoglobin 32.4 34.7 H Mean Corpuscular 32.1 33.3 Hemoglobin Concent Red Cell Distribution Width 24.5 H 24.8 H Platelet Count 35 L 42 L Mean Platelet Volume Immature Granulocytes % 18.500 H 17.400 H Neutrophils % Segmented Neutrophils 37 L 32 L % (Manual) Band Neutrophils % (Manual) 35 H 34 H Lymphocytes % Lymphocytes % (Manual) 12 L 10 L Reactive Lymphocytes % (Manual) 1 H Monocytes % Monocytes % (Manual) 1 10 Eosinophils % Basophils % Metamyelocytes % (manual) 9 H 9 H Myelocytes % (Manual) 2 H 2 H Promyelocytes % (Manual) 3 H 1 H Nucleated Red Blood Cells % 6 H 2 H Immature Granulocytes # 1.380 H 1.230 H Neutrophils # Neutrophils # (Manual) 3.0 2.4 Band Neutrophils # 2.6 H 2.4 H Lymphocytes (Manual) 0.9 0.7 L Lymphocytes # Reactive Lymphocytes # 0.0 Monocytes # Monocytes # (Manual) 0.0 L 0.7 Eosinophils # Basophils # Metamyelocytes # 0.6 H 0.6 H Myelocytes # 0.1 H 0.1 H Promyelocytes # 0.2 H 0.0 Nucleated Red Blood Cells # Toxic Granulation 1+ Platelet Estimate SIG DECREASED SIG DECREASED Giant Platelets 4 H 4 H Polychromasia 1+ 1+ Poikilocytosis 1+ Anisocytosis 2+ 2+ Macrocytosis 2+ 1+ Spherocytes 1+ Sodium Level 135 134 L Potassium Level 3.1 L 2.8 *L Chloride Level 97 102 Carbon Dioxide Level 22 26 Anion Gap 16 H 6 # Blood Urea Nitrogen 103 H 81 H Creatinine 2.40 H 1.86 H Est Glomerular Filtrat Rate mL/min Glucose Level 122 134 Calcium Level 7.5 L 7.5 L Stool Occult Blood POSITIVE Basophils % (Manual) 2 Basophils # (Manual) 0.1 H Target Cells 1+ Tear Drop Cells 1+ Ovalocytes 1+ Medications Medication Current Medications Albuterol/ Ipratropium (Duoneb) 3 ml Q4H RESP THERAPY PRN HHN SHORTNESS OF BREATH Last administered on 09/14/18 21:38; Admin Dose 3 ML; Start 09/12/18 at 20:30 Ascorbic Acid (Vitamin C) 250 mg DAILY GTB Last administered on 09/17/18 08:41; Admin Dose 250 MG; Start 09/13/18 at 09:00 Collagenase (Santyl) 1 applic BID TOP Last administered on 09/17/18 08:41; Admin Dose 1 APPLIC; Start 09/13/18 at 09:00 Docusate Sodium (Colace Liquid Cup) 50 mg BID GTB Last administered on 09/17/18 08:41; Admin Dose 50 MG; Start 09/13/18 at 09:00 Ertapenem 0.5 gm/ Sodium Chloride 100 ml @ 200 mls/hr Q24H IVPB Last administered on 09/16/18 21:01; Admin Dose 200 MLS/HR; Start 09/12/18 at 22:00; Stop 09/17/18 at 21:59 Escitalopram Oxalate (Lexapro) 10 mg DAILY GTB Last administered on 09/17/18 08:41; Admin Dose 10 MG; Start 09/13/18 at 09:00 Finasteride (Proscar) 5 mg DAILY GTB Last administered on 09/17/18 08:41; Admin Dose 5 MG; Start 09/13/18 at 09:00 Acetaminophen/ Hydrocodone Bitart ([place] (5/325)) 1 tab Q6H PRN PO MODERATE PAIN LEVEL 4-6 Last administered on 09/16/18 18:51; Admin Dose 1 TAB; Start 09/12/18 at 21:30 Lorazepam (Ativan) 0.5 mg Q6H PRN GTB ANXIETY Last administered on 09/17/18 02:19; Admin Dose 0.5 MG; Start 09/12/18 at 21:30 Multivit/Ca Carb/ B Cmplx/FA/Prenat (Ofe-Mine) 1 tab DAILY GTB Last administered on 09/17/18 08:41; Admin Dose 1 TAB; Start 09/13/18 at 09:00 Ondansetron HCl (Zofran Tab) 4 mg Q6H PRN GTB NAUSEA AND/OR VOMITING; Start 09/12/18 at 21:30 Zinc Oxide (Zinc Oxide Oint) 1 applic DAILY TOP Last administered on 09/17/18 08:42; Admin Dose 1 APPLIC; Start 09/13/18 at 09:00 Heparin Sodium (Porcine) (Heparin (1000 Units/ml)) 4,000 unit AFTER DIALYSIS CATHETER Last administered on 09/16/18 20:29; Admin Dose 4,000 UNIT; Start 09/13/18 at 16:30 Albumin Human 100 ml @ 100 mls/hr WITH DIALYSIS PRN IV SBP <90 DURING DIALYSIS Last administered on 09/14/18 08:36; Admin Dose 100 MLS/HR; Start 09/13/18 at 16:30 Sodium Chloride (NS) -To prime the dialy... DIRECTED FOR HD PRN IV HD; Start 09/13/18 at 16:30 Epoetin Tim (Epogen (Esrd)) 8,000 units TuThSa@17 SC Last administered on 09/16/18 17:27; Admin Dose 8,000 UNITS; Start 09/13/18 at 17:00 Guaifenesin/ Dextromethorphan (Robitussin Dm Liquid Cup) 5 ml Q4H PRN PO Cough Last administered on 09/15/18 05:55; Admin Dose 5 ML; Start 09/14/18 at 22:00 Vancomycin HCl (Vancomycin Oral Syringe) 125 mg Q6 PO Last administered on 09/17/18 05:42; Admin Dose 125 MG; Start 09/15/18 at 12:00 Metronidazole 100 ml @ 100 mls/hr Q6 IVPB Last administered on 09/17/18 05:42; Admin Dose 100 MLS/HR; Start 09/15/18 at 12:00 Ferric Sodium Gluconate Complex 125 mg/Sodium Chloride 110 ml @ 110 mls/hr DAILY@1300 IVPB Last administered on 09/16/18at 12:28; Admin Dose 110 MLS/HR; Start 09/15/18 at 13:00; Stop 09/19/18 at 13:59 Midodrine (Proamatine) 5 mg TID@,13,17 PO Last administered on 09/17/18at 08:45; Admin Dose 5 MG; Start 09/15/18 at 17:00 Lansoprazole (Prevacid) 30 mg DAILY@06 PEG Last administered on 09/17/18at 05:42; Admin Dose 30 MG; Start 09/16/18 at 06:00 FELICIANO RAMIREZ MD Sep 17, 2018 09:48
--- NOTE | 2018-09-17 10:39 | CONS ---
Assessment/Plan Assessment/Plan Hospital Course (Demo Recall) ID PROGRESS NOTE CURRENT ABX: DAY # => Ertapenem #5 + Flagyl IV + Vanco liq GT 24H INTERVAL SUMMARY * Chronic debility, non-verbal on the Vent, no fevers, VSS, looks comfortable * 09/14/18 CXR Mildly increased interstitial edema suggesting cardiopulmonary congestion. Small left pleural effusion increased. MICRO * 09/13/18 (+)C.DIFF * 09/12/18 (-) MRSA Nares PHYSICAL EXAMINATION: GENERAL: Afebrile, VSS, encephalopathic HEENT: AT, NC, anicteric NECK: Grossly normal (+)Trach secure to Vent CHEST: Equal chest rise bilaterally = crackles * Left chest PermCath in place, no erythema at insert site HEART: Pulse RRR ABDOMEN: Soft / ND, peg EXTREMITIES: Warm, bilateral hand edema with right hand ecchymosis from lab draw vs PIV, BLEXT edema SKIN: No rash, no diaphoresis ID ASSESSMENT 83 yo M admit with: 1. Recent urinary tract infection -on Ertapenem 2. Acute C.Diff colitis w/rectocele 3. Significant anemia with a history of gastrointestinal bleeding- no active bleeding * Hx of Erosive gastritis and also AV malformation. 4. Recurrent pneumonias with respiratory failure ->(+) tracheostomy. * Hx of Enterococcus trach site 5. End-stage renal failure on hemodialysis. 6. Pacer - with good function, 100% paced now. 7. CAD - hx of open heart surgery 8. CHF w/Abnormal electrocardiogram * 09/14/18 CXR Mildly increased interstitial edema suggesting cardiopulmonary congestion. Small left pleural effusion increased. 9. Hypertension, controlled 10 .End-stage renal disease on hemodialysis 11. Diabetes mellitus- on meds (-)MRSA Nares Screen ABX ALLERGIES: KNDA INVASIVES: PermCATH (08/14/18), Trach, Peg CURRENT ABX: DAY # => Ertapenem + Flagyl IV + Vanco liq GT ID RECOMMENDATIONS/PLAN: 1. DC Ertapenem 2. Continue ABX Flagy + Vanco Liq for C.Diff . Consultation Date/Type/Reason Admit Date/Time Sep 12, 2018 at 12:05 Initial Consult Date 09/13/18 Requesting Provider: RUBÉN BENITO MD Date/Time of Note DATE: 09/17/18 TIME: 10:39 Exam/Review of Systems Exam Vitals Vital Signs Date Temp Pulse Resp B/P (MAP) Pulse Ox O2 O2 Flow FiO2 Time Delivery Rate 09/17/18 60 08:28 09/17/18 98.7 18 116/58 100 Mechanical 07:58 (77) Ventilator 09/17/18 35 05:26 Intake and Output 09/16/18 09/16/18 09/17/18 1515:00 23:00 07:00 IntakeIntake Total 880 ml 940 ml OutputOutput Total 2250 ml 150 ml BalanceBalance -1370 ml 790 ml Results Result Diagram: 09/17/18 0529 09/17/18 0529 Results 24hrs Laboratory Tests Test 09/16/18 10:56 09/17/18 04:00 09/17/18 05:29 White Blood Count 7.5 # 7.1 Red Blood Count 2.22 L 2.02 L Hemoglobin 7.2 L 7.0 L Hematocrit 22.4 L 21.0 L Mean Corpuscular Volume 100.9 104.0 H Mean Corpuscular Hemoglobin 32.4 34.7 H Mean Corpuscular 32.1 33.3 Hemoglobin Concent Red Cell Distribution Width 24.5 H 24.8 H Platelet Count 35 L 42 L Mean Platelet Volume Immature Granulocytes % 18.500 H 17.400 H Neutrophils % Segmented Neutrophils 37 L 32 L % (Manual) Band Neutrophils % (Manual) 35 H 34 H Lymphocytes % Lymphocytes % (Manual) 12 L 10 L Reactive Lymphocytes % (Manual) 1 H Monocytes % Monocytes % (Manual) 1 10 Eosinophils % Basophils % Metamyelocytes % (manual) 9 H 9 H Myelocytes % (Manual) 2 H 2 H Promyelocytes % (Manual) 3 H 1 H Nucleated Red Blood Cells % 6 H 2 H Immature Granulocytes # 1.380 H 1.230 H Neutrophils # Neutrophils # (Manual) 3.0 2.4 Band Neutrophils # 2.6 H 2.4 H Lymphocytes (Manual) 0.9 0.7 L Lymphocytes # Reactive Lymphocytes # 0.0 Monocytes # Monocytes # (Manual) 0.0 L 0.7 Eosinophils # Basophils # Metamyelocytes # 0.6 H 0.6 H Myelocytes # 0.1 H 0.1 H Promyelocytes # 0.2 H 0.0 Nucleated Red Blood Cells # Toxic Granulation 1+ Platelet Estimate SIG DECREASED SIG DECREASED Giant Platelets 4 H 4 H Polychromasia 1+ 1+ Poikilocytosis 1+ Anisocytosis 2+ 2+ Macrocytosis 2+ 1+ Spherocytes 1+ Sodium Level 135 134 L Potassium Level 3.1 L 2.8 *L Chloride Level 97 102 Carbon Dioxide Level 22 26 Anion Gap 16 H 6 # Blood Urea Nitrogen 103 H 81 H Creatinine 2.40 H 1.86 H Est Glomerular Filtrat Rate mL/min Glucose Level 122 134 Calcium Level 7.5 L 7.5 L Stool Occult Blood POSITIVE Basophils % (Manual) 2 Basophils # (Manual) 0.1 H Target Cells 1+ Tear Drop Cells 1+ Ovalocytes 1+ Medications Medication Current Medications Albuterol/ Ipratropium (Duoneb) 3 ml Q4H RESP THERAPY PRN HHN SHORTNESS OF BREATH Last administered on 09/14/18 21:38; Admin Dose 3 ML; Start 09/12/18 at 20:30 Ascorbic Acid (Vitamin C) 250 mg DAILY GTB Last administered on 09/17/18 08:41; Admin Dose 250 MG; Start 09/13/18 at 09:00 Collagenase (Santyl) 1 applic BID TOP Last administered on 09/17/18 08:41; Admin Dose 1 APPLIC; Start 09/13/18 at 09:00 Docusate Sodium (Colace Liquid Cup) 50 mg BID GTB Last administered on 09/17/18 08:41; Admin Dose 50 MG; Start 09/13/18 at 09:00 Ertapenem 0.5 gm/ Sodium Chloride 100 ml @ 200 mls/hr Q24H IVPB Last administered on 09/16/18 21:01; Admin Dose 200 MLS/HR; Start 09/12/18 at 22:00; Stop 09/17/18 at 21:59 Escitalopram Oxalate (Lexapro) 10 mg DAILY GTB Last administered on 09/17/18 08:41; Admin Dose 10 MG; Start 09/13/18 at 09:00 Finasteride (Proscar) 5 mg DAILY GTB Last administered on 09/17/18 08:41; Admin Dose 5 MG; Start 09/13/18 at 09:00 Acetaminophen/ Hydrocodone Bitart ([place] (5/325)) 1 tab Q6H PRN PO MODERATE PAIN LEVEL 4-6 Last administered on 09/16/18 18:51; Admin Dose 1 TAB; Start 09/12/18 at 21:30 Lorazepam (Ativan) 0.5 mg Q6H PRN GTB ANXIETY Last administered on 09/17/18 02:19; Admin Dose 0.5 MG; Start 09/12/18 at 21:30 Multivit/Ca Carb/ B Cmplx/FA/Prenat (Ofe-Mnie) 1 tab DAILY GTB Last administered on 09/17/18 08:41; Admin Dose 1 TAB; Start 09/13/18 at 09:00 Ondansetron HCl (Zofran Tab) 4 mg Q6H PRN GTB NAUSEA AND/OR VOMITING; Start 09/12/18 at 21:30 Zinc Oxide (Zinc Oxide Oint) 1 applic DAILY TOP Last administered on 09/17/18 08:42; Admin Dose 1 APPLIC; Start 09/13/18 at 09:00 Heparin Sodium (Porcine) (Heparin (1000 Units/ml)) 4,000 unit AFTER DIALYSIS CATHETER Last administered on 09/16/18 20:29; Admin Dose 4,000 UNIT; Start 09/13/18 at 16:30 Albumin Human 100 ml @ 100 mls/hr WITH DIALYSIS PRN IV SBP <90 DURING DIALYSIS Last administered on 09/14/18 08:36; Admin Dose 100 MLS/HR; Start 09/13/18 at 16:30 Sodium Chloride (NS) -To prime the dialy... DIRECTED FOR HD PRN IV HD; Start 09/13/18 at 16:30 Epoetin Tim (Epogen (Esrd)) 8,000 units TuThSa@17 SC Last administered on 09/16/18 17:27; Admin Dose 8,000 UNITS; Start 09/13/18 at 17:00 Guaifenesin/ Dextromethorphan (Robitussin Dm Liquid Cup) 5 ml Q4H PRN PO Cough Last administered on 09/15/18 05:55; Admin Dose 5 ML; Start 09/14/18 at 22:00 Vancomycin HCl (Vancomycin Oral Syringe) 125 mg Q6 PO Last administered on 09/17/18 05:42; Admin Dose 125 MG; Start 09/15/18 at 12:00 Metronidazole 100 ml @ 100 mls/hr Q6 IVPB Last administered on 09/17/18at 05:42; Admin Dose 100 MLS/HR; Start 09/15/18 at 12:00 Ferric Sodium Gluconate Complex 125 mg/Sodium Chloride 110 ml @ 110 mls/hr DAILY@1300 IVPB Last administered on 09/16/18at 12:28; Admin Dose 110 MLS/HR; Start 09/15/18 at 13:00; Stop 09/19/18 at 13:59 Lansoprazole (Prevacid) 30 mg DAILY@06 PEG Last administered on 09/17/18at 05:42; Admin Dose 30 MG; Start 09/16/18 at 06:00 Midodrine (Proamatine) 10 mg TID@09,13,17 PO ; Start 09/17/18 at 13:00 ANNE-MARIE LUNSFORD NP Sep 17, 2018 10:39
--- NOTE | 2018-09-17 12:33 | CONS ---
Assessment/Plan Assessment/Plan Hospital Course (Demo Recall) ASSESSMENT AND PLAN: Elderly gentleman with multiple medical problems including cardiovascular heart disease, respiratory failure, kidney damage, chronic renal failure. We were asked to see for pancytopenia -most likely that pancytopenia is mostly due to sepsis and CRI, also has macrocytosis with no nutritional deficiency. given age however cannot rule out MDS, however this can only be diagnosed by bone marrow biopsy and given his current status would not recommend that as only supportive treatment would be offered given his poor performance status -goal is supportive: Keep hemoglobin above 7 Keep platelets above 10,000. If the platelet drops below 10,000 or the patient bleeds, transfuse 1 unit of platelets. -he has very elevated ferritin c/w anemia of chronic disease/chronic inflammation, Cr is elevated, he is a candidate for procrit -normal B12 and folate on repeat testing -has macrocytosis, SPEP shows no paraprotein spike Consultation Date/Type/Reason Admit Date/Time Sep 12, 2018 at 12:05 Initial Consult Date 09/13/18 Requesting Provider: RUBÉN BENITO MD Date/Time of Note DATE: 09/17/18 TIME: 12:33 24 HR Interval Summary Free Text/Dictation resting comfortably Subjective hx not possible: pt non-verbal Exam/Review of Systems Exam Vitals Vital Signs Date Temp Pulse Resp B/P (MAP) Pulse Ox O2 O2 Flow FiO2 Time Delivery Rate 09/17/18 60 12:25 09/17/18 98.7 16 128/58 100 Mechanical 11:57 (81) Ventilator 09/17/18 35 05:26 Intake and Output 09/16/18 09/16/18 09/17/18 1515:00 23:00 07:00 IntakeIntake Total 880 ml 940 ml OutputOutput Total 2250 ml 150 ml BalanceBalance -1370 ml 790 ml Constitutional: frail Neurological: unresponsive Results Result Diagram: 09/17/1829 09/17/18528 Results 24hrs Laboratory Tests Test 09/17/18 04:00 09/17/18 05:29 Stool Occult Blood POSITIVE White Blood Count 7.1 Red Blood Count 2.02 L Hemoglobin 7.0 L Hematocrit 21.0 L Mean Corpuscular Volume 104.0 H Mean Corpuscular Hemoglobin 34.7 H Mean Corpuscular Hemoglobin Concent 33.3 Red Cell Distribution Width 24.8 H Platelet Count 42 L Mean Platelet Volume Immature Granulocytes % 17.400 H Neutrophils % Segmented Neutrophils % (Manual) 32 L Band Neutrophils % (Manual) 34 H Lymphocytes % Lymphocytes % (Manual) 10 L Monocytes % Monocytes % (Manual) 10 Eosinophils % Basophils % Basophils % (Manual) 2 Metamyelocytes % (manual) 9 H Myelocytes % (Manual) 2 H Promyelocytes % (Manual) 1 H Nucleated Red Blood Cells % 2 H Immature Granulocytes # 1.230 H Neutrophils # Neutrophils # (Manual) 2.4 Band Neutrophils # 2.4 H Lymphocytes (Manual) 0.7 L Lymphocytes # Monocytes # Monocytes # (Manual) 0.7 Eosinophils # Basophils # Basophils # (Manual) 0.1 H Metamyelocytes # 0.6 H Myelocytes # 0.1 H Promyelocytes # 0.0 Nucleated Red Blood Cells # Platelet Estimate SIG DECREASED Giant Platelets 4 H Polychromasia 1+ Anisocytosis 2+ Macrocytosis 1+ Target Cells 1+ Tear Drop Cells 1+ Ovalocytes 1+ Sodium Level 134 L Potassium Level 2.8 *L Chloride Level 102 Carbon Dioxide Level 26 Anion Gap 6 # Blood Urea Nitrogen 81 H Creatinine 1.86 H Est Glomerular Filtrat Rate mL/min Glucose Level 134 Calcium Level 7.5 L Medications Medication Current Medications Albuterol/ Ipratropium (Duoneb) 3 ml Q4H RESP THERAPY PRN HHN SHORTNESS OF BREATH Last administered on 09/14/18at 21:38; Admin Dose 3 ML; Start 09/12/18 at 20:30 Ascorbic Acid (Vitamin C) 250 mg DAILY GTB Last administered on 09/17/18 08:41; Admin Dose 250 MG; Start 09/13/18 at 09:00 Collagenase (Santyl) 1 applic BID TOP Last administered on 09/17/18 08:41; Admin Dose 1 APPLIC; Start 09/13/18 at 09:00 Docusate Sodium (Colace Liquid Cup) 50 mg BID GTB Last administered on 09/17/18 08:41; Admin Dose 50 MG; Start 09/13/18 at 09:00 Escitalopram Oxalate (Lexapro) 10 mg DAILY GTB Last administered on 09/17/18 08:41; Admin Dose 10 MG; Start 09/13/18 at 09:00 Finasteride (Proscar) 5 mg DAILY GTB Last administered on 09/17/18 08:41; Admin Dose 5 MG; Start 09/13/18 at 09:00 Acetaminophen/ Hydrocodone Bitart ([place] (5/325)) 1 tab Q6H PRN PO MODERATE PAIN LEVEL 4-6 Last administered on 09/16/18 18:51; Admin Dose 1 TAB; Start 09/12/18 at 21:30 Lorazepam (Ativan) 0.5 mg Q6H PRN GTB ANXIETY Last administered on 09/17/18 02:19; Admin Dose 0.5 MG; Start 09/12/18 at 21:30 Multivit/Ca Carb/ B Cmplx/FA/Prenat ([place]) 1 tab DAILY GTB Last administered on 09/17/18 08:41; Admin Dose 1 TAB; Start 09/13/18 at 09:00 Ondansetron HCl (Zofran Tab) 4 mg Q6H PRN GTB NAUSEA AND/OR VOMITING; Start at 21:30 Zinc Oxide (Zinc Oxide Oint) 1 applic DAILY TOP Last administered on 09/17/18 08:42; Admin Dose 1 APPLIC; Start 09/13/18 at 09:00 Heparin Sodium (Porcine) (Heparin (1000 Units/ml)) 4,000 unit AFTER DIALYSIS CATHETER Last administered on 09/16/18 20:29; Admin Dose 4,000 UNIT; Start 09/13/18 at 16:30 Albumin Human 100 ml @ 100 mls/hr WITH DIALYSIS PRN IV SBP <90 DURING DIALYSIS Last administered on 09/14/18 08:36; Admin Dose 100 MLS/HR; Start 09/13/18 at 16:30 Sodium Chloride (NS) -To prime the dialy... DIRECTED FOR HD PRN IV HD; Start 09/13/18 at 16:30 Epoetin Tim (Epogen (Esrd)) 8,000 units TuThSa@17 SC Last administered on 09/16/18 17:27; Admin Dose 8,000 UNITS; Start 09/13/18 at 17:00 Guaifenesin/ Dextromethorphan (Robitussin Dm Liquid Cup) 5 ml Q4H PRN PO Cough Last administered on 09/15/18 05:55; Admin Dose 5 ML; Start 09/14/18 at 22:00 Vancomycin HCl (Vancomycin Oral Syringe) 125 mg Q6 PO Last administered on 09/17/18at 12:24; Admin Dose 125 MG; Start 09/15/18 at 12:00 Metronidazole 100 ml @ 100 mls/hr Q6 IVPB Last administered on 09/17/18at 12:23 ; Admin Dose 100 MLS/HR; Start 09/15/18 at 12:00 Ferric Sodium Gluconate Complex 125 mg/Sodium Chloride 110 ml @ 110 mls/hr DAILY@1300 IVPB Last administered on 09/16/18at 12:28; Admin Dose 110 MLS/HR; Start 09/15/18 at 13:00; Stop 09/19/18 at 13:59 Lansoprazole (Prevacid) 30 mg DAILY@06 PEG Last administered on 09/17/18at 05:42; Admin Dose 30 MG; Start 09/16/18 at 06:00 Midodrine (Proamatine) 10 mg TID@,13,17 PO ; Start 09/17/18 at 13:00 IVÁN GONZALEZ Sep 17, 2018 12:33
[2018-09-17] MEDS: SOD FERRIC GLUC COMPLX 125 MG in SOD CHLORIDE 0.9% 100 ML IVPB SCH (13:08)
--- NOTE | 2018-09-17 13:12 | PN ---
Date/Time of Note Date/Time of Note DATE: 09/17/18 TIME: 13:09 Assessment/Plan VTE Prophylaxis Risk score (from Ns)>0 risk: 3 SCD applied (from [facility]): Yes Pharmacological prophylaxis: NA/contraindicated Pharm contraindication: bleeding Lines/Catheters IV [facility] Type [facility]from [facility] [place] Urinary Cath still in place: No Assessment/Plan Hospital Course Patient continues on ventilatory support without distress, stable vital signs. Potassium is 2.8 replacement given, BMP tomorrow, patient is going to have hemodialysis tomorrow. Assessment/Plan -C. difficile colitis, continue Vanco via G-tube. Dr. Rebolledo is following in infection disease consultation. -Pancytopenia, status post blood transfusion. Dr. Coleman is following him her e in hematology consultation. Dr. Hedrick is following in gastroenterology consultation. Stool for OB is negative. 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 Continue Prevacid. -Coronary artery disease status post PCI. Patient with pancytopenia with history of recurrent gastrointestinal bleed, unfortunately cannot be giving aspirin or Plavix. -Permanent pacemaker -Ventilator dependent respiratory failure. Dr. Mendoza is following in pulmonology consultation. -Hemodialysis dependent end-stage renal disease. Continue hemodialysis. Dr. Mari is following in nephrology consultation. -Dysphagia with G-tube -Sacral decubitus. Continue local wound care. -Depression. Continue Lexapro. -History of prostate cancer Further recommendations based on clinical course. Plan of care discussed with Dr. Brown. Result Diagram: 09/17/1852809/17/18528 Results 24hrs Laboratory Tests Test 09/17/18 04:00 09/17/18 05:29 Stool Occult Blood POSITIVE White Blood Count 7.1 Red Blood Count 2.02 L Hemoglobin 7.0 L Hematocrit 21.0 L Mean Corpuscular Volume 104.0 H Mean Corpuscular Hemoglobin 34.7 H Mean Corpuscular Hemoglobin Concent 33.3 Red Cell Distribution Width 24.8 H Platelet Count 42 L Mean Platelet Volume Immature Granulocytes % 17.400 H Neutrophils % Segmented Neutrophils % (Manual) 32 L Band Neutrophils % (Manual) 34 H Lymphocytes % Lymphocytes % (Manual) 10 L Monocytes % Monocytes % (Manual) 10 Eosinophils % Basophils % Basophils % (Manual) 2 Metamyelocytes % (manual) 9 H Myelocytes % (Manual) 2 H Promyelocytes % (Manual) 1 H Nucleated Red Blood Cells % 2 H Immature Granulocytes # 1.230 H Neutrophils # Neutrophils # (Manual) 2.4 Band Neutrophils # 2.4 H Lymphocytes (Manual) 0.7 L Lymphocytes # Monocytes # Monocytes # (Manual) 0.7 Eosinophils # Basophils # Basophils # (Manual) 0.1 H Metamyelocytes # 0.6 H Myelocytes # 0.1 H Promyelocytes # 0.0 Nucleated Red Blood Cells # Platelet Estimate SIG DECREASED Giant Platelets 4 H Polychromasia 1+ Anisocytosis 2+ Macrocytosis 1+ Target Cells 1+ Tear Drop Cells 1+ Ovalocytes 1+ Sodium Level 134 L Potassium Level 2.8 *L Chloride Level 102 Carbon Dioxide Level 26 Anion Gap 6 # Blood Urea Nitrogen 81 H Creatinine 1.86 H Est Glomerular Filtrat Rate mL/min Glucose Level 134 Calcium Level 7.5 L Exam/Review of Systems Exam Vitals Vital Signs Date Temp Pulse Resp B/P (MAP) Pulse Ox O2 O2 Flow FiO2 Time Delivery Rate 09/17/18 60 12:25 09/17/18 98.7 16 128/58 100 Mechanical 11:57 (81) Ventilator 09/17/18 35 11:50 Intake and Output 09/16/18 09/16/18 09/17/18 1515:00 23:00 07:00 IntakeIntake Total 880 ml 940 ml OutputOutput Total 2250 ml 150 ml BalanceBalance -1370 ml 790 ml Exam Constitutional: alert, non-verbal Respiratory: diminished breath sounds Cardiovascular: other (PPM) Gastrointestinal: soft, non-tender, other (G-tube) Extremities: normal pulses Neurological: confused Results Results 24hrs Laboratory Tests Test 09/17/18 04:00 09/17/18 05:29 Stool Occult Blood POSITIVE White Blood Count 7.1 Red Blood Count 2.02 L Hemoglobin 7.0 L Hematocrit 21.0 L Mean Corpuscular Volume 104.0 H Mean Corpuscular Hemoglobin 34.7 H Mean Corpuscular Hemoglobin Concent 33.3 Red Cell Distribution Width 24.8 H Platelet Count 42 L Mean Platelet Volume Immature Granulocytes % 17.400 H Neutrophils % Segmented Neutrophils % (Manual) 32 L Band Neutrophils % (Manual) 34 H Lymphocytes % Lymphocytes % (Manual) 10 L Monocytes % Monocytes % (Manual) 10 Eosinophils % Basophils % Basophils % (Manual) 2 Metamyelocytes % (manual) 9 H Myelocytes % (Manual) 2 H Promyelocytes % (Manual) 1 H Nucleated Red Blood Cells % 2 H Immature Granulocytes # 1.230 H Neutrophils # Neutrophils # (Manual) 2.4 Band Neutrophils # 2.4 H Lymphocytes (Manual) 0.7 L Lymphocytes # Monocytes # Monocytes # (Manual) 0.7 Eosinophils # Basophils # Basophils # (Manual) 0.1 H Metamyelocytes # 0.6 H Myelocytes # 0.1 H Promyelocytes # 0.0 Nucleated Red Blood Cells # Platelet Estimate SIG DECREASED Giant Platelets 4 H Polychromasia 1+ Anisocytosis 2+ Macrocytosis 1+ Target Cells 1+ Tear Drop Cells 1+ Ovalocytes 1+ Sodium Level 134 L Potassium Level 2.8 *L Chloride Level 102 Carbon Dioxide Level 26 Anion Gap 6 # Blood Urea Nitrogen 81 H Creatinine 1.86 H Est Glomerular Filtrat Rate mL/min Glucose Level 134 Calcium Level 7.5 L Medications Medication Current Medications Albuterol/ Ipratropium (Duoneb) 3 ml Q4H RESP THERAPY PRN HHN SHORTNESS OF BREATH Last administered on 09/14/18 21:38; Admin Dose 3 ML; Start 09/12/18 at 20:30 Ascorbic Acid (Vitamin C) 250 mg DAILY GTB Last administered on 09/17/18 08:41; Admin Dose 250 MG; Start 09/13/18 at 09:00 Collagenase (Santyl) 1 applic BID TOP Last administered on 09/17/18 08:41; Admin Dose 1 APPLIC; Start 09/13/18 at 09:00 Docusate Sodium (Colace Liquid Cup) 50 mg BID GTB Last administered on 09/17/18 08:41; Admin Dose 50 MG; Start 09/13/18 at 09:00 Escitalopram Oxalate (Lexapro) 10 mg DAILY GTB Last administered on 09/17/18 08:41; Admin Dose 10 MG; Start 09/13/18 at 09:00 Finasteride (Proscar) 5 mg DAILY GTB Last administered on 09/17/18 08:41; A dmin Dose 5 MG; Start 09/13/18 at 09:00 Acetaminophen/ Hydrocodone Bitart ([place] (5/325)) 1 tab Q6H PRN PO MODERATE PAIN LEVEL 4-6 Last administered on 09/16/18 18:51; Admin Dose 1 TAB; Start 09/12/18 at 21:30 Lorazepam (Ativan) 0.5 mg Q6H PRN GTB ANXIETY Last administered on 09/17/18 02:19; Admin Dose 0.5 MG; Start 09/12/18 at 21:30 Multivit/Ca Carb/ B Cmplx/FA/Prenat ([place]fe-Mine) 1 tab DAILY GTB Last administered on 09/17/18 08:41; Admin Dose 1 TAB; Start 09/13/18 at 09:00 Ondansetron HCl (Zofran Tab) 4 mg Q6H PRN GTB NAUSEA AND/OR VOMITING; Start 09/12/18 at 21:30 Zinc Oxide (Zinc Oxide Oint) 1 applic DAILY TOP Last administered on 09/17/18 08:42; Admin Dose 1 APPLIC; Start 09/13/18 at 09:00 Heparin Sodium (Porcine) (Heparin (1000 Units/ml)) 4,000 unit AFTER DIALYSIS CATHETER Last administered on 09/16/18 20:29; Admin Dose 4,000 UNIT; Start 09/13/18 at 16:30 Albumin Human 100 ml @ 100 mls/hr WITH DIALYSIS PRN IV SBP <90 DURING DIALYSIS Last administered on 09/14/18 08:36; Admin Dose 100 MLS/HR; Start 09/13/18 at 16:30 Sodium Chloride (NS) -To prime the dialy... DIRECTED FOR HD PRN IV HD; Start 09/13/18 at 16:30 Epoetin Tim (Epogen (Esrd)) 8,000 units TuThSa@17 SC Last administered on 09/16/18 17:27; Admin Dose 8,000 UNITS; Start 09/13/18 at 17:00 Guaifenesin/ Dextromethorphan (Robitussin Dm Liquid Cup) 5 ml Q4H PRN PO Cough Last administered on 09/15/18 05:55; Admin Dose 5 ML; Start 09/14/18 at 22:00 Vancomycin HCl (Vancomycin Oral Syringe) 125 mg Q6 PO Last administered on 09/17/18 12:24; Admin Dose 125 MG; Start 09/15/18 at 12:00 Metronidazole 100 ml @ 100 mls/hr Q6 IVPB Last administered on 09/17/18at 12:23; Admin Dose 100 MLS/HR; Start 09/15/18 at 12:00 Ferric Sodium Gluconate Complex 125 mg/Sodium Chloride 110 ml @ 110 mls/hr DAILY@1300 IVPB Last administered on 09/16/18at 12:28; Admin Dose 110 MLS/HR; Start 09/15/18 at 13:00; Stop 09/19/18 at 13:59 Lansoprazole (Prevacid) 30 mg DAILY@06 PEG Last administered on 09/17/18at 05:42; Admin Dose 30 MG; Start 09/16/18 at 06:00 Midodrine (Proamatine) 10 mg TID@09,13,17 PO ; Start 09/17/18 at 13:00 RADHA FISHER Sep 17, 2018 13:12
--- NOTE | 2018-09-17 13:54 | CONS ---
Assessment/Plan Assessment/Plan Hospital Course (Demo Recall) IMP: 1.BRadycardia-possible miscounting by tele monitor- no recurrent jey by tele 2.PPM-v paced at 60. No signs of dysfunction 3.c diff 4.ESRD on HD 5. Resp failure-chronic s/p trach 6. HYpotension Recc: -Tele -serial ecg's -Follow rhythm/rate closely -Continue flagyl/vanc -midodrine BP support as necessary -HD for volume removal Consultation Date/Type/Reason Admit Date/Time Sep 12, 2018 at 12:05 Initial Consult Date 09/13/18 Type of Consult Cardiology Reason for Consultation Bradycardia Requesting Provider: RUBÉN BENITO MD Date/Time of Note DATE: 09/17/18 TIME: 13:50 Exam/Review of Systems Vital Signs Vitals Vital Signs Date Temp Pulse Resp B/P (MAP) Pulse Ox O2 O2 Flow FiO2 Time Delivery Rate 09/17/18 60 12:25 09/17/18 98.7 16 128/58 100 Mechanical 11:57 (81) Ventilator 09/17/18 35 11:50 Intake and Output 09/16/18 09/16/18 09/17/18 1515:00 23:00 07:00 IntakeIntake Total 880 ml 940 ml OutputOutput Total 2250 ml 150 ml BalanceBalance -1370 ml 790 ml Exam Exam Review of Systems: CONSTITUTIONAL: No fevers, chills. PULMONARY: No sob CARDIOVASCULAR: No chest pain/palpitations GASTROINTESTINAL: No nausea/vomiting. GENITOURINARY: No hematuria/dysuria. MUSCULOSKELETAL: No myagias/arthalgias. PSYCHIATRIC: The patient denies depression. NEUROLOGIC: No weakness Constitutional: alert Psych: no complaints ENMT: mucosa pink and moist Neck: supple, jvd (9 cm water) Respiratory: diminished breath sounds Cardiovascular: regular rate and rhythm Gastrointestinal: soft Musculoskeletal: muscle tone (normal) Extremities: edema (none) Neurological: other (No focal deficits) Labs Result Diagram: 09/17/18 0509/17/18 0529 Results 24hrs Laboratory Tests Test 09/17/18 04:00 09/17/18 05:29 Stool Occult Blood POSITIVE White Blood Count 7.1 Red Blood Count 2.02 L Hemoglobin 7.0 L Hematocrit 21.0 L Mean Corpuscular Volume 104.0 H Mean Corpuscular Hemoglobin 34.7 H Mean Corpuscular Hemoglobin Concent 33.3 Red Cell Distribution Width 24.8 H Platelet Count 42 L Mean Platelet Volume Immature Granulocytes % 17.400 H Neutrophils % Segmented Neutrophils % (Manual) 32 L Band Neutrophils % (Manual) 34 H Lymphocytes % Lymphocytes % (Manual) 10 L Monocytes % Monocytes % (Manual) 10 Eosinophils % Basophils % Basophils % (Manual) 2 Metamyelocytes % (manual) 9 H Myelocytes % (Manual) 2 H Promyelocytes % (Manual) 1 H Nucleated Red Blood Cells % 2 H Immature Granulocytes # 1.230 H Neutrophils # Neutrophils # (Manual) 2.4 Band Neutrophils # 2.4 H Lymphocytes (Manual) 0.7 L Lymphocytes # Monocytes # Monocytes # (Manual) 0.7 Eosinophils # Basophils # Basophils # (Manual) 0.1 H Metamyelocytes # 0.6 H Myelocytes # 0.1 H Promyelocytes # 0.0 Nucleated Red Blood Cells # Platelet Estimate SIG DECREASED Giant Platelets 4 H Polychromasia 1+ Anisocytosis 2+ Macrocytosis 1+ Target Cells 1+ Tear Drop Cells 1+ Ovalocytes 1+ Sodium Level 134 L Potassium Level 2.8 *L Chloride Level 102 Carbon Dioxide Level 26 Anion Gap 6 # Blood Urea Nitrogen 81 H Creatinine 1.86 H Est Glomerular Filtrat Rate mL/min Glucose Level 134 Calcium Level 7.5 L Medications Medications Current Medications Albuterol/ Ipratropium (Duoneb) 3 ml Q4H RESP THERAPY PRN HHN SHORTNESS OF BREATH Last administered on 09/14/18at 21:38; Admin Dose 3 ML; Start 09/12/18 at 20:30 Ascorbic Acid (Vitamin C) 250 mg DAILY GTB Last administered on 09/17/18 08:41; Admin Dose 250 MG; Start 09/13/18 at 09:00 Collagenase (Santyl) 1 applic BID TOP Last administered on 09/17/18 08:41; Admin Dose 1 APPLIC; Start 09/13/18 at 09:00 Docusate Sodium (Colace Liquid Cup) 50 mg BID GTB Last administered on 9at 08:41; Admin Dose 50 MG; Start 09/13/18 at 09:00 Escitalopram Oxalate (Lexapro) 10 mg DAILY GTB Last administered on 09/17/18 08:41; Admin Dose 10 MG; Start 09/13/18 at 09:00 Finasteride (Proscar) 5 mg DAILY GTB Last administered on 09/17/18 08:41; Admin Dose 5 MG; Start 09/13/18 at 09:00 Acetaminophen/ Hydrocodone Bitart ([place] (5/325)) 1 tab Q6H PRN PO MODERATE PAIN LEVEL 4-6 Last administered on 09/16/18 18:51; Admin Dose 1 TAB; Start 09/12/18 at 21:30 Lorazepam (Ativan) 0.5 mg Q6H PRN GTB ANXIETY Last administered on 09/17/18 02:19; Admin Dose 0.5 MG; Start 09/12/18 at 21:30 Multivit/Ca Carb/ B Cmplx/FA/Prenat (Ofe-Mine) 1 tab DAILY GTB Last administered on 09/17/18 08:41; Admin Dose 1 TAB; Start 09/13/18 at 09:00 Ondansetron HCl (Zofran Tab) 4 mg Q6H PRN GTB NAUSEA AND/OR VOMITING; Start 09/12/18 at 21:30 Zinc Oxide (Zinc Oxide Oint) 1 applic DAILY TOP Last administered on 09/17/18 08:42; Admin Dose 1 APPLIC; Start 09/13/18 at 09:00 Heparin Sodium (Porcine) (Heparin (1000 Units/ml)) 4,000 unit AFTER DIALYSIS CATHETER Last administered on 09/16/18 20:29; Admin Dose 4,000 UNIT; Start 09/13/18 at 16:30 Albumin Human 100 ml @ 100 mls/hr WITH DIALYSIS PRN IV SBP <90 DURING DIALYSIS Last administered on 09/14/18 08:36; Admin Dose 100 MLS/HR; Start 09/13/18 at 16:30 Sodium Chloride (NS) -To prime the dialy... DIRECTED FOR HD PRN IV HD; Start 09/13/18 at 16:30 Epoetin Tim (Epogen (Esrd)) 8,000 units TuThSa@17 SC Last administered on 09/16/18 17:27; Admin Dose 8,000 UNITS; Start 09/13/18 at 17:00 Guaifenesin/ Dextromethorphan (Robitussin Dm Liquid Cup) 5 ml Q4H PRN PO Cough Last administered on 09/15/18 05:55; Admin Dose 5 ML; Start 09/14/18 at 22:00 Vancomycin HCl (Vancomycin Oral Syringe) 125 mg Q6 PO Last administered on 09/17/18at 12:24; Admin Dose 125 MG; Start 09/15/18 at 12:00 Metronidazole 100 ml @ 100 mls/hr Q6 IVPB Last administered on 09/17/18at 12:23; Admin Dose 100 MLS/HR; Start 09/15/18 at 12:00 Ferric Sodium Gluconate Complex 125 mg/Sodium Chloride 110 ml @ 110 mls/hr DAILY@1300 IVPB Last administered on 09/17/18 13:08; Admin Dose 110 MLS/HR; Start 09/15/18 at 13:00; Stop 09/19/18 at 13:59 Lansoprazole (Prevacid) 30 mg DAILY@06 PEG Last administered on 09/17/18at 05:42; Admin Dose 30 MG; Start 09/16/18 at 06:00 Midodrine (Proamatine) 10 mg TID@,,17 PO Last administered on 09/17/18at 13:09; Admin Dose 10 MG; Start 09/17/18 at 13:00 PETRA DELA CRUZ Sep 17, 2018 13:54
--- NOTE | 2018-09-17 14:59 | CONS ---
Consult Date/Type/Reason Admit Date/Time Sep 12, 2018 at 12:05 Initial Consult Date 09/13/18 Type of Consult Pulmonary Requesting Provider: RUBÉN BENITO MD Date/Time of Note DATE: 09/17/18 TIME: 14:58 Subjective Patient stable no new events Objective Vital Signs Date Temp Pulse Resp B/P (MAP) Pulse Ox O2 O2 Flow FiO2 Time Delivery Rate 09/17/18 60 12:25 09/17/18 98.7 16 128/58 100 Mechanical 11:57 (81) Ventilator 09/17/18 35 11:50 Intake and Output 09/16/18 09/16/18 09/17/18 1515:00 23:00 07:00 IntakeIntake Total 880 ml 940 ml OutputOutput Total 2250 ml 150 ml BalanceBalance -1370 ml 790 ml Exam PHYSICAL EXAMINATION: GENERAL: Elderly-appearing gentleman on mechanical ventilation. He appears comfortable at rest, no acute distress. VITAL SIGNS: NECK: Trach site clean and intact. CARDIAC: S1, S2, no added sounds or murmurs. CHEST: Diminished air entry bilaterally. ABDOMEN: Soft, nontender. No guarding or rebound. EXTREMITIES: No cyanosis, clubbing or edema. NEUROLOGIC: Generalized weakness. Vent Setting Ventilator Support Mode: AC Fraction of Inspired Oxygen pe: 35 Positive End Expiratory Pressu: 5.0 Results/Medications Result Diagram: 09/17/1852809/17/18528 Results 24 hrs Laboratory Tests Test 09/17/18 04:00 09/17/18 05:29 Stool Occult Blood POSITIVE White Blood Count 7.1 Red Blood Count 2.02 L Hemoglobin 7.0 L Hematocrit 21.0 L Mean Corpuscular Volume 104.0 H Mean Corpuscular Hemoglobin 34.7 H Mean Corpuscular Hemoglobin Concent 33.3 Red Cell Distribution Width 24.8 H Platelet Count 42 L Mean Platelet Volume Immature Granulocytes % 17.400 H Neutrophils % Segmented Neutrophils % (Manual) 32 L Band Neutrophils % (Manual) 34 H Lymphocytes % Lymphocytes % (Manual) 10 L Monocytes % Monocytes % (Manual) 10 Eosinophils % Basophils % Basophils % (Manual) 2 Metamyelocytes % (manual) 9 H Myelocytes % (Manual) 2 H Promyelocytes % (Manual) 1 H Nucleated Red Blood Cells % 2 H Immature Granulocytes # 1.230 H Neutrophils # Neutrophils # (Manual) 2.4 Band Neutrophils # 2.4 H Lymphocytes (Manual) 0.7 L Lymphocytes # Monocytes # Monocytes # (Manual) 0.7 Eosinophils # Basophils # Basophils # (Manual) 0.1 H Metamyelocytes # 0.6 H Myelocytes # 0.1 H Promyelocytes # 0.0 Nucleated Red Blood Cells # Platelet Estimate SIG DECREASED Giant Platelets 4 H Polychromasia 1+ Anisocytosis 2+ Macrocytosis 1+ Target Cells 1+ Tear Drop Cells 1+ Ovalocytes 1+ Sodium Level 134 L Potassium Level 2.8 *L Chloride Level 102 Carbon Dioxide Level 26 Anion Gap 6 # Blood Urea Nitrogen 81 H Creatinine 1.86 H Est Glomerular Filtrat Rate mL/min Glucose Level 134 Calcium Level 7.5 L Medications Current Medications Albuterol/ Ipratropium (Duoneb) 3 ml Q4H RESP THERAPY PRN HHN SHORTNESS OF BREATH Last administered on 09/14/18 21:38; Admin Dose 3 ML; Start 09/12/18 at 20:30 Ascorbic Acid (Vitamin C) 250 mg DAILY GTB Last administered on 09/17/18 0 8:41; Admin Dose 250 MG; Start 09/13/18 at 09:00 Collagenase (Santyl) 1 applic BID TOP Last administered on 09/17/18 08:41; Admin Dose 1 APPLIC; Start 09/13/18 at 09:00 Docusate Sodium (Colace Liquid Cup) 50 mg BID GTB Last administered on 09/17/18 08:41; Admin Dose 50 MG; Start 09/13/18 at 09:00 Escitalopram Oxalate (Lexapro) 10 mg DAILY GTB Last administered on 09/17/18 08:41; Admin Dose 10 MG; Start 09/13/18 at 09:00 Finasteride (Proscar) 5 mg DAILY GTB Last administered on 09/17/18 08:41; Admin Dose 5 MG; Start 09/13/18 at 09:00 Acetaminophen/ Hydrocodone Bitart ([place] (5/325)) 1 tab Q6H PRN PO MODERATE PAIN LEVEL 4-6 Last administered on 09/16/18 18:51; Admin Dose 1 TAB; Start 09/12/18 at 21:30 Lorazepam (Ativan) 0.5 mg Q6H PRN GTB ANXIETY Last administered on 09/17/18 02:19; Admin Dose 0.5 MG; Start 09/12/18 at 21:30 Multivit/Ca Carb/ B Cmplx/FA/Prenat (Ofe-Mine) 1 tab DAILY GTB Last administered on 09/17/18 08:41; Admin Dose 1 TAB; Start 09/13/18 at 09:00 Ondansetron HCl (Zofran Tab) 4 mg Q6H PRN GTB NAUSEA AND/OR VOMITING; Start 09/12/18 at 21:30 Zinc Oxide (Zinc Oxide Oint) 1 applic DAILY TOP Last administered on 09/17/18 08:42; Admin Dose 1 APPLIC; Start 09/13/18 at 09:00 Heparin Sodium (Porcine) (Heparin (1000 Units/ml)) 4,000 unit AFTER DIALYSIS CATHETER Last administered on 09/16/18 20:29; Admin Dose 4,000 UNIT; Start 09/13/18 at 16:30 Albumin Human 100 ml @ 100 mls/hr WITH DIALYSIS PRN IV SBP <90 DURING DIALYSIS Last administered on 09/14/18 08:36; Admin Dose 100 MLS/HR; Start 09/13/18 at 16:30 Sodium Chloride (NS) -To prime the dialy... DIRECTED FOR HD PRN IV HD; Start 09/13/18 at 16:30 Epoetin Tim (Epogen (Esrd)) 8,000 units TuThSa@17 SC Last administered on 09/16/18 17:27; Admin Dose 8,000 UNITS; Start 09/13/18 at 17:00 Guaifenesin/ Dextromethorphan (Robitussin Dm Liquid Cup) 5 ml Q4H PRN PO Cough Last administered on 09/15/18 05:55; Admin Dose 5 ML; Start 09/14/18 at 22:00 Vancomycin HCl (Vancomycin Oral Syringe) 125 mg Q6 PO Last administered on 09/17/18 12:24; Admin Dose 125 MG; Start 09/15/18 at 12:00 Metronidazole 100 ml @ 100 mls/hr Q6 IVPB Last administered on 09/17/18 12:23; Admin Dose 100 MLS/HR; Start 09/15/18 at 12:00 Ferric Sodium Gluconate Complex 125 mg/Sodium Chloride 110 ml @ 110 mls/hr JOSE ALBERTO LY@1300 IVPB Last administered on 09/17/18at 13:08; Admin Dose 110 MLS/HR; Start 09/15/18 at 13:00; Stop 09/19/18 at 13:59 Lansoprazole (Prevacid) 30 mg DAILY@06 PEG Last administered on 09/17/18at 05 :42; Admin Dose 30 MG; Start 09/16/18 at 06:00 Midodrine (Proamatine) 10 mg TID@09,13,17 PO Last administered on 09/17/18at 13:09; Admin Dose 10 MG; Start 09/17/18 at 13:00 Potassium Chloride 100 ml @ 50 mls/hr ONCE ONCE IVPB ; Start 09/17/18 at 15:00; Stop 09/17/18 at 16:59 Assessment/Plan Hospital Course (Demo Recall) All IMPRESSION 1. Recent urinary tract infection. 2. Significant anemia with a history of gastrointestinal bleeding. 3. Recurrent pneumonias with tracheostomy. 4. End-stage renal failure on hemodialysis. Plan: 1. Continued broad spectrum antibiotics. 2. Transfusion of packed red blood cells. Monitor h/h, continue Hemonc recommendations with transfusion limits noted. Workup for multiple myeloma. 3. Gastrointestinal evaluation for ongoing gastrointestinal bleed. 4. Iron replacement. 5. Deep venous thrombosis and GI prophylaxis. Overall prognosis guarded consider addressing CODE STATUS. SPENSER RICO MD, [facility] Sep 17, 2018 14:59
[2018-09-17] MEDS ORDERED: POTASSIUM CHLORIDE 100 ML IVPB ONE (15:00)
--- NOTE | 2018-09-17 15:22 | CONS ---
Assessment/Plan Assessment/Plan Assessment/Plan (Daily) escobar 1. Pancytopenia. At this point, no evidence of active GI bleeding. Anemia of chronic disease -FOB negative, Iron panel noted. 2. Coronary artery disease status post PCI. 3. Respiratory failure. 4. Benign prostatic hypertrophy. 5. Depression. 6. Sacral decubitus ulcer. 7. End-stage renal disease on dialysis. 8. Thrombocytopenia platelet count is 40,000 in stable -per heme onc: keep platelets above 20,000, hgb above 7.0 -feel pancytopenia is due to multiple underlying disorders 9. C diff in stool PLAN: FOB Start vanco PO 125mg QID x 10 daysand flagyl 500 mg TID x 10 days We will monitor closely for evidence of GI bleeding. Per heme onc keep plt above 20,000 and hgb above 7.0. Continue wit Prevacid Procrit Consultation Date/Type/Reason Admit Date/Time Sep 12, 2018 at 12:05 Initial Consult Date 09/13/18 Requesting Provider: RUBÉN BENITO MD Date/Time of Note DATE: 09/17/18 TIME: 15:22 24 HR Interval Summary Subjective hx not possible: pt non-verbal Exam/Review of Systems Exam Vitals Vital Signs Date Temp Pulse Resp B/P (MAP) Pulse Ox O2 O2 Flow FiO2 Time Delivery Rate 09/17/18 60 12:25 09/17/18 98.7 16 128/58 100 Mechanical 11:57 (81) Ventilator 09/17/18 35 11:50 Intake and Output 09/16/18 09/16/18 09/17/18 1515:00 23:00 07:00 IntakeIntake Total 880 ml 940 ml OutputOutput Total 2250 ml 150 ml BalanceBalance -1370 ml 790 ml Neck: supple, non-tender Gastrointestinal: soft, nl liver, spleen, non-tender Musculoskeletal: nl extremities to inspection, nl gait and stance Extremities: normal pulses Results Result Diagram: 09/17/1852809/17/18528 Results 24hrs Laboratory Tests Test 09/17/18 04:00 09/17/18 05:29 Stool Occult Blood POSITIVE White Blood Count 7.1 Red Blood Count 2.02 L Hemoglobin 7.0 L Hematocrit 21.0 L Mean Corpuscular Volume 104.0 H Mean Corpuscular Hemoglobin 34.7 H Mean Corpuscular Hemoglobin Concent 33.3 Red Cell Distribution Width 24.8 H Platelet Count 42 L Mean Platelet Volume Immature Granulocytes % 17.400 H Neutrophils % Segmented Neutrophils % (Manual) 32 L Band Neutrophils % (Manual) 34 H Lymphocytes % Lymphocytes % (Manual) 10 L Monocytes % Monocytes % (Manual) 10 Eosinophils % Basophils % Basophils % (Manual) 2 Metamyelocytes % (manual) 9 H Myelocytes % (Manual) 2 H Promyelocytes % (Manual) 1 H Nucleated Red Blood Cells % 2 H Immature Granulocytes # 1.230 H Neutrophils # Neutrophils # (Manual) 2.4 Band Neutrophils # 2.4 H Lymphocytes (Manual) 0.7 L Lymphocytes # Monocytes # Monocytes # (Manual) 0.7 Eosinophils # Basophils # Basophils # (Manual) 0.1 H Metamyelocytes # 0.6 H Myelocytes # 0.1 H Promyelocytes # 0.0 Nucleated Red Blood Cells # Platelet Estimate SIG DECREASED Giant Platelets 4 H Polychromasia 1+ Anisocytosis 2+ Macrocytosis 1+ Target Cells 1+ Tear Drop Cells 1+ Ovalocytes 1+ Sodium Level 134 L Potassium Level 2.8 *L Chloride Level 102 Carbon Dioxide Level 26 Anion Gap 6 # Blood Urea Nitrogen 81 H Creatinine 1.86 H Est Glomerular Filtrat Rate mL/min Glucose Level 134 Calcium Level 7.5 L Medications Medication Current Medications Albuterol/ Ipratropium (Duoneb) 3 ml Q4H RESP THERAPY PRN HHN SHORTNESS OF BREATH Last administered on 09/14/18 21:38; Admin Dose 3 ML; Start 09/12/18 at 20:30 Ascorbic Acid (Vitamin C) 250 mg DAILY GTB Last administered on 09/17/18 08:41; Admin Dose 250 MG; Start 09/13/18 at 09:00 Collagenase (Santyl) 1 applic BID TOP Last administered on 09/17/18 08:41; Admin Dose 1 APPLIC; Start 09/13/18 at 09:00 Docusate Sodium (Colace Liquid Cup) 50 mg BID GTB Last administered on 09/17/18 08:41; Admin Dose 50 MG; Start 09/13/18 at 09:00 Escitalopram Oxalate (Lexapro) 10 mg DAILY GTB Last administered on 09/17/18 08:41; Admin Dose 10 MG; Start 09/13/18 at 09:00 Finasteride (Proscar) 5 mg DAILY GTB Last administered on 09/17/18 08:41; Admin Dose 5 MG; Start 09/13/18 at 09:00 Acetaminophen/ Hydrocodone Bitart ([place] (5/325)) 1 tab Q6H PRN PO MODERATE PAIN LEVEL 4-6 Last administered on 09/16/18 18:51; Admin Dose 1 TAB; Start 09/12/18 at 21:30 Lorazepam (Ativan) 0.5 mg Q6H PRN GTB ANXIETY Last administered on 09/17/18 02:19; Admin Dose 0.5 MG; Start 09/12/18 at 21:30 Multivit/Ca Carb/ B Cmplx/FA/Prenat (Ofe-Mine) 1 tab DAILY GTB Last administered on 09/17/18 08:41; Admin Dose 1 TAB; Start 09/13/18 at 09:00 Ondansetron HCl (Zofran Tab) 4 mg Q6H PRN GTB NAUSEA AND/OR VOMITING; Start 09/12/18 at 21:30 Zinc Oxide (Zinc Oxide Oint) 1 applic DAILY TOP Last administered on 09/17/18 08:42; Admin Dose 1 APPLIC; Start 09/13/18 at 09:00 Heparin Sodium (Porcine) (Heparin (1000 Units/ml)) 4,000 unit AFTER DIALYSIS CATHETER Last administered on 09/16/18 20:29; Admin Dose 4,000 UNIT; Start 09/13/18 at 16:30 Albumin Human 100 ml @ 100 mls/hr WITH DIALYSIS PRN IV SBP <90 DURING DIALYSIS Last administered on 09/14/18 08:36; Admin Dose 100 MLS/HR; Start 09/13/18 at 16:30 Sodium Chloride (NS) -To prime the dialy... DIRECTED FOR HD PRN IV HD; Start 09/13/18 at 16:30 Epoetin Tim (Epogen (Esrd)) 8,000 units TuThSa@17 SC Last administered on 09/16/18 17:27; Admin Dose 8,000 UNITS; Start 09/13/18 at 17:00 Guaifenesin/ Dextromethorphan (Robitussin Dm Liquid Cup) 5 ml Q4H PRN PO Cough Last administered on 2/18/19at 05:55; Admin Dose 5 ML; Start 09/14/18 at 22:00 Vancomycin HCl (Vancomycin Oral Syringe) 125 mg Q6 PO Last administered on 09/17/18at 12:24; Admin Dose 125 MG; Start 09/15/18 at 12:00 Metronidazole 100 ml @ 100 mls/hr Q6 IVPB Last administered on 09/17/18at 12:23; Admin Dose 100 MLS/HR; Start 09/15/18 at 12:00 Ferric Sodium Gluconate Complex 125 mg/Sodium Chloride 110 ml @ 110 mls/hr DAILY@1300 IVPB Last administered on 09/17/18 13:08; Admin Dose 110 MLS/HR; Start 09/15/18 at 13:00; Stop 09/19/18 at 13:59 Lansoprazole (Prevacid) 30 mg DAILY@06 PEG Last administered on 09/17/18at 05:42; Admin Dose 30 MG; Start 09/16/18 at 06:00 Midodrine (Proamatine) 10 mg TID@,13,17 PO Last administered on 09/17/18at 13:09; Admin Dose 10 MG; Start 09/17/18 at 13:00 Potassium Chloride 100 ml @ 50 mls/hr ONCE ONCE IVPB ; Start 09/17/18 at 15:00; Stop 09/17/18 at 16:59 JED SALAS MD Sep 17, 2018 15:22
[2018-09-18] VITALS (35 sets, daily range): BP systolic 79–125; BP diastolic 39–78; PULSE 59–60; RESP 16–27
[2018-09-18] MEDS: metroNIDAZOLE 500 MG/NS (PMX) 100 ML IVPB SCH ×5 (00:59→23:59)
[2018-09-18] MEDS: VANCOMYCIN HCL 250 MG/5ML POSYG PO SCH ×4 (00:59→17:33)
[2018-09-18] MEDS: LORAZEPAM 0.5 MG TAB GTB PRN (05:00)
[2018-09-18] MEDS: GUAIFENESIN/DM 5ML CUP PO PRN (05:01)
[2018-09-18] MEDS: LANSOPRAZOLE 30 MG CAP PEG SCH (05:01)
--- NOTE | 2018-09-18 10:58 | CONS ---
Assessment/Plan Assessment/Plan Assessment/Plan (Daily) 1. acute fluid overload due to inadquate HD due to hypotension 2. Severe anemia concerned about GI bleeding 3. Hypokalemia 4. ESRD on HD on Sat, , saturday schedule at [facility] [place] [facility] 5. h/o HTN 6. h/o HL 7. H/o Prostate CA 8. H/O Chronic respiratory failure s/p tracheostomy in place 9. iron deficiency anemia 10. Pancytopenia Plan: s/p HD today 1.2 L removed, continue midodrine to 10mg PO TID for BP support Epogen 8000 units SQ TTS we will keep pt on Sat, , saturday schedule- Next HD will be on saturday Hematolgoy oncology has been following for pancytopenia which thought due to sepsis IV Ferrlectin x 5 doses for iron deficiency anemia will follow up Consultation Date/Type/Reason Admit Date/Time Sep 12, 2018 at 12:05 Initial Consult Date 09/13/18 Type of Consult NEPHROLOGY Requesting Provider: RUBÉN BENITO MD Date/Time of Note DATE: 09/18/18 TIME: 10:58 24 HR Interval Summary Free Text/Dictation s/p HD today 1.2 L removed, Bp stable Exam/Review of Systems Exam Vitals Vital Signs Date Temp Pulse Resp B/P (MAP) Pulse Ox O2 O2 Flow FiO2 Time Delivery Rate 09/18/18 60 08:28 09/18/18 97.9 17 112/58 100 07:57 (76) 09/18/18 35 05:33 09/18/18 Mechanical 03:02 Ventilator Intake and Output 09/17/18 09/17/18 09/18/18 1515:00 23:00 07:00 IntakeIntake Total 220 ml 460 ml 940 ml OutputOutput Total 400 ml 300 ml BalanceBalance 220 ml 60 ml 640 ml Exam Constitutional: non-verbal, distress ENMT: other (+ tracheostomy on venitlaotr ) Respiratory: diminished breath sounds, other (Bilateral coarse BS+) Cardiovascular: regular rate and rhythm Gastrointestinal: soft, other ( G tube in place ) Musculoskeletal: nl extremities to inspection Neurological: other (non verbal, on ventilator ) Results Result Diagram: 09/18/18 0608 09/18/18 0521 Results 24hrs Laboratory Tests Test 09/18/18 05:21 09/18/18 06:08 Sodium Level 134 L Potassium Level 3.6 Chloride Level 104 Carbon Dioxide Level 20 L Anion Gap 10 Blood Urea Nitrogen 95 H Creatinine 1.97 H Est Glomerular Filtrat Rate mL/min Glucose Level 110 Calcium Level 7.5 L Magnesium Level 2.2 White Blood Count 7.4 Red Blood Count 2.28 L Hemoglobin 7.5 L Hematocrit 22.9 L Mean Corpuscular Volume 100.4 Mean Corpuscular Hemoglobin 32.9 Mean Corpuscular Hemoglobin Concent 32.8 Red Cell Distribution Width 25.0 H Platelet Count 52 #L Mean Platelet Volume Immature Granulocytes % 12.400 H Neutrophils % Segmented Neutrophils % (Manual) 36 L Band Neutrophils % (Manual) 40 H Lymphocytes % Lymphocytes % (Manual) 9 L Monocytes % Monocytes % (Manual) 7 Eosinophils % Basophils % Metamyelocytes % (manual) 2 H Myelocytes % (Manual) 5 H Promyelocytes % (Manual) 1 H Nucleated Red Blood Cells % 8 H Immature Granulocytes # 0.920 H Neutrophils # Neutrophils # (Manual) 2.9 Band Neutrophils # 2.9 H Lymphocytes (Manual) 0.6 L Lymphocytes # Monocytes # Monocytes # (Manual) 0.5 Eosinophils # Basophils # Metamyelocytes # 0.1 H Myelocytes # 0.3 H Promyelocytes # 0.0 Nucleated Red Blood Cells # Platelet Estimate DECREASED Polychromasia 2+ Hypochromasia 2+ Poikilocytosis 1+ Anisocytosis 2+ Microcytosis 1+ Macrocytosis 1+ Spherocytes 1+ Ovalocytes 1+ Medications Medication Current Medications Albuterol/ Ipratropium (Duoneb) 3 ml Q4H RESP THERAPY PRN HHN SHORTNESS OF BREATH Last administered on 09/14/18at 21:38; Admin Dose 3 ML; Start 09/12/18 at 20:30 Ascorbic Acid (Vitamin C) 250 mg DAILY GTB Last administered on 09/17/18 08:41; Admin Dose 250 MG; Start 09/13/18 at 09:00 Collagenase (Santyl) 1 applic BID TOP Last administered on 09/17/18 21:16; Admin Dose 1 APPLIC; Start 09/13/18 at 09:00 Docusate Sodium (Colace Liquid Cup) 50 mg BID GTB Last administered on 09/17/18at 08:41; Admin Dose 50 MG; Start 09/13/18 at 09:00 Escitalopram Oxalate (Lexapro) 10 mg DAILY GTB Last administered on 09/17/18 08:41; Admin Dose 10 MG; Start 09/13/18 at 09:00 Finasteride (Proscar) 5 mg DAILY GTB Last administered on 09/17/18 08:41; Admin Dose 5 MG; Start 09/13/18 at 09:00 Acetaminophen/ Hydrocodone Bitart ([place] (5/325)) 1 tab Q6H PRN PO MODERATE PAIN LEVEL 4-6 Last administered on 09/16/18 18:51; Admin Dose 1 TAB; Start 09/12/18 at 21:30 Lorazepam (Ativan) 0.5 mg Q6H PRN GTB ANXIETY Last administered on 09/18/18 05:00; Admin Dose 0.5 MG; Start 09/12/18 at 21:30 Multivit/Ca Carb/ B Cmplx/FA/Prenat (Ofe-Mine) 1 tab DAILY GTB Last admi nistered on 09/17/18 08:41; Admin Dose 1 TAB; Start 09/13/18 at 09:00 Ondansetron HCl (Zofran Tab) 4 mg Q6H PRN GTB NAUSEA AND/OR VOMITING; Start 09/12/18 at 21:30 Zinc Oxide (Zinc Oxide Oint) 1 applic DAILY TOP Last administered on 09/17/18 08:42; Admin Dose 1 APPLIC; Start 09/13/18 at 09:00 Heparin Sodium (Porcine) (Heparin (1000 Units/ml)) 4,000 unit AFTER DIALYSIS CATHETER Last administered on 09/16/18 20:29; Admin Dose 4,000 UNIT; Start 09/13/18 at 16:30 Albumin Human 100 ml @ 100 mls/hr WITH DIALYSIS PRN IV SBP <90 DURING DIALYSIS Last administered on 09/14/18 08:36; Admin Dose 100 MLS/HR; Start 09/13/18 at 16:30 Sodium Chloride (NS) -To prime the dialy... DIRECTED FOR HD PRN IV HD; Start 09/13/18 at 16:30 Epoetin Tim (Epogen (Esrd)) 8,000 units TuThSa@17 SC Last administered on 2/19/19at 17:27; Admin Dose 8,000 UNITS; Start 09/13/18 at 17:00 Guaifenesin/ Dextromethorphan (Robitussin Dm Liquid Cup) 5 ml Q4H PRN PO Cough Last administered on 09/18/18 05:01; Admin Dose 5 ML; Start 09/14/18 at 22:00 Vancomycin HCl (Vancomycin Oral Syringe) 125 mg Q6 PO Last administered on 09/18/18 05:01; Admin Dose 125 MG; Start 09/15/18 at 12:00 Metronidazole 100 ml @ 100 mls/hr Q6 IVPB Last administered on 09/18/18 05:01; Admin Dose 100 MLS/HR; Start 09/15/18 at 12:00 Ferric Sodium Gluconate Complex 125 mg/Sodium Chloride 110 ml @ 110 mls/hr DAILY@1300 IVPB Last administered on 09/17/18 13:08; Admin Dose 110 MLS/HR; Start 09/15/18 at 13:00; Stop 09/19/18 at 13:59 Lansoprazole (Prevacid) 30 mg DAILY@06 PEG Last administered on 09/18/18 05:01; Admin Dose 30 MG; Start 09/16/18 at 06:00 Midodrine (Proamatine) 10 mg TID@,13,17 PO Last administered on 09/17/18at 17:31; Admin Dose 10 MG; Start 09/17/18 at 13:00 FELICIANO RAMIREZ MD Sep 18, 2018 10:58
[2018-09-18] MEDS ORDERED: ALBUMIN HUMAN 25% 100 ML IV ONE ×2 (12:00→12:30)
--- NOTE | 2018-09-18 12:05 | CONS ---
Assessment/Plan Assessment/Plan Hospital Course (Demo Recall) IMP: 1.BRadycardia-possible miscounting by tele monitor- no recurrent jey by tele 2.PPM-v paced at 60. No signs of dysfunction 3.c diff 4.ESRD on HD 5. Resp failure-chronic s/p trach 6. Hypotension-on midodrine with improved BP Recc: -Tele -serial ecg's -Follow rhythm/rate closely -Continue flagyl/vanc -midodrine BP support as necessary -HD for volume removal which is ongoiong now -albumin infusion for hypoalbuminemia and anasarca Consultation Date/Type/Reason Admit Date/Time Sep 12, 2018 at 12:05 Initial Consult Date 09/13/18 Type of Consult Cardiology Reason for Consultation PPM/CHF Requesting Provider: RUBÉN BENITO MD Date/Time of Note DATE: 09/18/18 TIME: 12:03 Exam/Review of Systems Vital Signs Vitals Vital Signs Date Temp Pulse Resp B/P (MAP) Pulse Ox O2 O2 Flow FiO2 Time Delivery Rate 09/18/18 60 20 115/59 95 Mechanical 10:55 (77) Ventilator 09/18/18 97.9 07:57 09/18/18 35 05:33 Intake and Output 09/17/18 09/17/18 09/18/18 1515:00 23:00 07:00 IntakeIntake Total 220 ml 460 ml 940 ml OutputOutput Total 400 ml 300 ml BalanceBalance 220 ml 60 ml 640 ml Exam Exam Review of Systems: CONSTITUTIONAL: No fevers, chills. PULMONARY: No sob CARDIOVASCULAR: No chest pain/palpitations GASTROINTESTINAL: No nausea/vomiting. GENITOURINARY: No hematuria/dysuria. MUSCULOSKELETAL: No myagias/arthalgias. PSYCHIATRIC: The patient denies depression. NEUROLOGIC: No weakness Constitutional: alert Head: normocephalic ENMT: mucosa pink and moist Neck: supple, jvd (9 cm water) Respiratory: diminished breath sounds (at bases/B) Cardiovascular: regular rate and rhythm Gastrointestinal: soft, non-tender Musculoskeletal: muscle tone (normal) Extremities: edema (anasarca) Neurological: confused Labs Result Diagram: 09/18/18 0608 09/18/18 0521 Results 24hrs Laboratory Tests Test 09/18/18 05:21 09/18/18 06:08 Sodium Level 134 L Potassium Level 3.6 Chloride Level 104 Carbon Dioxide Level 20 L Anion Gap 10 Blood Urea Nitrogen 95 H Creatinine 1.97 H Est Glomerular Filtrat Rate mL/min Glucose Level 110 Calcium Level 7.5 L Magnesium Level 2.2 White Blood Count 7.4 Red Blood Count 2.28 L Hemoglobin 7.5 L Hematocrit 22.9 L Mean Corpuscular Volume 100.4 Mean Corpuscular Hemoglobin 32.9 Mean Corpuscular Hemoglobin Concent 32.8 Red Cell Distribution Width 25.0 H Platelet Count 52 #L Mean Platelet Volume Immature Granulocytes % 12.400 H Neutrophils % Segmented Neutrophils % (Manual) 36 L Band Neutrophils % (Manual) 40 H Lymphocytes % Lymphocytes % (Manual) 9 L Monocytes % Monocytes % (Manual) 7 Eosinophils % Basophils % Metamyelocytes % (manual) 2 H Myelocytes % (Manual) 5 H Promyelocytes % (Manual) 1 H Nucleated Red Blood Cells % 8 H Immature Granulocytes # 0.920 H Neutrophils # Neutrophils # (Manual) 2.9 Band Neutrophils # 2.9 H Lymphocytes (Manual) 0.6 L Lymphocytes # Monocytes # Monocytes # (Manual) 0.5 Eosinophils # Basophils # Metamyelocytes # 0.1 H Myelocytes # 0.3 H Promyelocytes # 0.0 Nucleated Red Blood Cells # Platelet Estimate DECREASED Polychromasia 2+ Hypochromasia 2+ Poikilocytosis 1+ Anisocytosis 2+ Microcytosis 1+ Macrocytosis 1+ Spherocytes 1+ Ovalocytes 1+ Medications Medications Current Medications Albuterol/ Ipratropium (Duoneb) 3 ml Q4H RESP THERAPY PRN HHN SHORTNESS OF BREATH Last administered on 09/14/18at 21:38; Admin Dose 3 ML; Start 09/12/18 at 20:30 Ascorbic Acid (Vitamin C) 250 mg DAILY GTB Last administered on 09/17/18at 08:41; Admin Dose 250 MG; Start 09/13/18 at 09:00 Collagenase (Santyl) 1 applic BID TOP Last administered on 09/17/18at 21:16; Admin Dose 1 APPLIC; Start 09/13/18 at 09:00 Docusate Sodium (Colace Liquid Cup) 50 mg BID GTB Last administered on 09/17/18at 08:41; Admin Dose 50 MG; Start 09/13/18 at 09:00 Escitalopram Oxalate (Lexapro) 10 mg DAILY GTB Last administered on 09/17/18 08:41; Admin Dose 10 MG; Start 09/13/18 at 09:00 Finasteride (Proscar) 5 mg DAILY GTB Last administered on 09/17/18 08:41; Admin Dose 5 MG; Start 09/13/18 at 09:00 Acetaminophen/ Hydrocodone Bitart ([place] (5/325)) 1 tab Q6H PRN PO MODERATE PAIN LEVEL 4-6 Last administered on 09/16/18 18:51; Admin Dose 1 TAB; Start 09/12/18 at 21:30 Lorazepam (Ativan) 0.5 mg Q6H PRN GTB ANXIETY Last administered on 09/18/18 05:00; Admin Dose 0.5 MG; Start 09/12/18 at 21:30 Multivit/Ca Carb/ B Cmplx/FA/Prenat (Ofe-Mine) 1 tab DAILY GTB Last administered on 09/17/18 08:41; Admin Dose 1 TAB; Start 09/13/18 at 09:00 Ondansetron HCl (Zofran Tab) 4 mg Q6H PRN GTB NAUSEA AND/OR VOMITING; Start 09/12/18 at 21:30 Zinc Oxide (Zinc Oxide Oint) 1 applic DAILY TOP Last administered on 09/17/18 08:42; Admin Dose 1 APPLIC; Start 09/13/18 at 09:00 Heparin Sodium (Porcine) (Heparin (1000 Units/ml)) 4,000 unit AFTER DIALYSIS CATHETER Last administered on 09/16/18 20:29; Admin Dose 4,000 UNIT; Start 09/13/18 at 16:30 Albumin Human 100 ml @ 100 mls/hr WITH DIALYSIS PRN IV SBP <90 DURING DIALYSIS Last administered on 09/14/18 08:36; Admin Dose 100 MLS/HR; Start 09/13/18 at 16:30 Sodium Chloride (NS) -To prime the dialy... DIRECTED FOR HD PRN IV HD; Start 09/13/18 at 16:30 Epoetin Tim (Epogen (Esrd)) 8,000 units TuThSa@17 SC Last administered on 09/16/18 17:27; Admin Dose 8,000 UNITS; Start 09/13/18 at 17:00 Guaifenesin/ Dextromethorphan (Robitussin Dm Liquid Cup) 5 ml Q4H PRN PO Cough Last administered on 09/18/18 05:01; Admin Dose 5 ML; Start 09/14/18 at 22:00 Vancomycin HCl (Vancomycin Oral Syringe) 125 mg Q6 PO Last administered on 09/18/18 05:01; Admin Dose 125 MG; Start 09/15/18 at 12:00 Metronidazole 100 ml @ 100 mls/hr Q6 IVPB Last administered on 09/18/18 05:01; Admin Dose 100 MLS/HR; Start 09/15/18 at 12:00 Ferric Sodium Gluconate Complex 125 mg/Sodium Chloride 110 ml @ 110 mls/hr DAILY@1300 IVPB Last administered on 09/17/18at 13:08; Admin Dose 110 MLS/HR; Start 09/15/18 at 13:00; Stop 09/19/18 at 13:59 Lansoprazole (Prevacid) 30 mg DAILY@06 PEG Last administered on 09/18/18at 05:01; Admin Dose 30 MG; Start 09/16/18 at 06:00 Midodrine (Proamatine) 10 mg TID@09,13,17 PO Last administered on 09/17/18at 17:31; Admin Dose 10 MG; Start 09/17/18 at 13:00 Albumin Human 100 ml @ 100 mls/hr ONCE ONCE IV ; Start 09/18/18 at 12:00; Stop 09/18/18 at 12:59 PETRA DELA CRUZ Sep 18, 2018 12:05
--- NOTE | 2018-09-18 12:41 | CONS ---
Consult Date/Type/Reason Admit Date/Time Sep 12, 2018 at 12:05 Initial Consult Date 09/13/18 Type of Consult Pulmonary Requesting Provider: RUBÉN BENITO MD Date/Time of Note DATE: 09/18/18 TIME: 12:40 Subjective Patient stable no new events. Objective Vital Signs Date Temp Pulse Resp B/P (MAP) Pulse Ox O2 O2 Flow FiO2 Time Delivery Rate 09/18/18 59 12:26 09/18/18 20 115/59 95 Mechanical 10:55 (77) Ventilator 09/18/18 97.9 07:57 09/18/18 35 05:33 Intake and Output 09/17/18 09/17/18 09/18/18 1515:00 23:00 07:00 IntakeIntake Total 220 ml 460 ml 940 ml OutputOutput Total 400 ml 300 ml BalanceBalance 220 ml 60 ml 640 ml Exam PHYSICAL EXAMINATION: GENERAL: Elderly-appearing gentleman on mechanical ventilation. He appea rs comfortable at rest, no acute distress. VITAL SIGNS: NECK: Trach site clean and intact. CARDIAC: S1, S2, no added sounds or murmurs. CHEST: Diminished air entry bilaterally. ABDOMEN: Soft, nontender. No guarding or rebound. EXTREMITIES: No cyanosis, clubbing or edema. NEUROLOGIC: Generalized weakness. Vent Setting Ventilator Support Mode: AC Fraction of Inspired Oxygen pe: 35 Positive End Expiratory Pressu: 5.0 Results/Medications Result Diagram: 09/18/18 0608 09/18/18 0521 Results 24 hrs Laboratory Tests Test 09/18/18 05:21 09/18/18 06:08 Sodium Level 134 L Potassium Level 3.6 Chloride Level 104 Carbon Dioxide Level 20 L Anion Gap 10 Blood Urea Nitrogen 95 H Creatinine 1.97 H Est Glomerular Filtrat Rate mL/min Glucose Level 110 Calcium Level 7.5 L Magnesium Level 2.2 White Blood Count 7.4 Red Blood Count 2.28 L Hemoglobin 7.5 L Hematocrit 22.9 L Mean Corpuscular Volume 100.4 Mean Corpuscular Hemoglobin 32.9 Mean Corpuscular Hemoglobin Concent 32.8 Red Cell Distribution Width 25.0 H Platelet Count 52 #L Mean Platelet Volume Immature Granulocytes % 12.400 H Neutrophils % Segmented Neutrophils % (Manual) 36 L Band Neutrophils % (Manual) 40 H Lymphocytes % Lymphocytes % (Manual) 9 L Monocytes % Monocytes % (Manual) 7 Eosinophils % Basophils % Metamyelocytes % (manual) 2 H Myelocytes % (Manual) 5 H Promyelocytes % (Manual) 1 H Nucleated Red Blood Cells % 8 H Immature Granulocytes # 0.920 H Neutrophils # Neutrophils # (Manual) 2.9 Band Neutrophils # 2.9 H Lymphocytes (Manual) 0.6 L Lymphocytes # Monocytes # Monocytes # (Manual) 0.5 Eosinophils # Basophils # Metamyelocytes # 0.1 H Myelocytes # 0.3 H Promyelocytes # 0.0 Nucleated Red Blood Cells # Platelet Estimate DECREASED Polychromasia 2+ Hypochromasia 2+ Poikilocytosis 1+ Anisocytosis 2+ Microcytosis 1+ Macrocytosis 1+ Spherocytes 1+ Ovalocytes 1+ Medications Current Medications Albuterol/ Ipratropium (Duoneb) 3 ml Q4H RESP THERAPY PRN HHN SHORTNESS OF BREATH Last administered on 09/14/18at 21:38; Admin Dose 3 ML; Start 09/12/18 at 20:30 Ascorbic Acid (Vitamin C) 250 mg DAILY GTB Last administered on 09/17/18 08:41; Admin Dose 250 MG; Start 09/13/18 at 09:00 Collagenase (Santyl) 1 applic BID TOP Last administered on 09/17/18 21:16; Admin Dose 1 APPLIC; Start 09/13/18 at 09:00 Docusate Sodium (Colace Liquid Cup) 50 mg BID GTB Last administered on 09/17/18 08:41; Admin Dose 50 MG; Start 09/13/18 at 09:00 Escitalopram Oxalate (Lexapro) 10 mg DAILY GTB Last administered on 09/17/18 08:41; Admin Dose 10 MG; Start 09/13/18 at 09:00 Finasteride (Proscar) 5 mg DAILY GTB Last administered on 09/17/18 08:41; Admin Dose 5 MG; Start 09/13/18 at 09:00 Acetaminophen/ Hydrocodone Bitart ([place] (5/325)) 1 tab Q6H PRN PO MODERATE PA IN LEVEL 4-6 Last administered on 09/16/18at 18:51; Admin Dose 1 TAB; Start 09/12/18 at 21:30 Lorazepam (Ativan) 0.5 mg Q6H PRN GTB ANXIETY Last administered on 09/18/18 05:00; Admin Dose 0.5 MG; Start 09/12/18 at 21:30 Multivit/Ca Carb/ B Cmplx/FA/Prenat (Ofe-Mine) 1 tab DAILY GTB Last administe red on 09/17/18 08:41; Admin Dose 1 TAB; Start 09/13/18 at 09:00 Ondansetron HCl (Zofran Tab) 4 mg Q6H PRN GTB NAUSEA AND/OR VOMITING; Start 09/12/18 at 21:30 Zinc Oxide (Zinc Oxide Oint) 1 applic DAILY TOP Last administered on 09/17/18 08:42; Admin Dose 1 APPLIC; Start 09/13/18 at 09:00 Heparin Sodium (Porcine) (Heparin (1000 Units/ml)) 4,000 unit AFTER DIALYSIS CATHETER Last administered on 09/16/18 20:29; Admin Dose 4,000 UNIT; Start 09/13/18 at 16:30 Albumin Human 100 ml @ 100 mls/hr WITH DIALYSIS PRN IV SBP <90 DURING DIALYSIS Last administered on 09/14/18 08:36; Admin Dose 100 MLS/HR; Start 09/13/18 at 16:30 Sodium Chloride (NS) -To prime the dialy... DIRECTED FOR HD PRN IV HD; Start 09/13/18 at 16:30 Epoetin Tim (Epogen (Esrd)) 8,000 units TuThSa@17 SC Last administered on 09/16/18 17:27; Admin Dose 8,000 UNITS; Start 09/13/18 at 17:00 Guaifenesin/ Dextromethorphan (Robitussin Dm Liquid Cup) 5 ml Q4H PRN PO Cough Last administered on 09/18/18 05:01; Admin Dose 5 ML; Start 09/14/18 at 22:00 Vancomycin HCl (Vancomycin Oral Syringe) 125 mg Q6 PO Last administered on 09/18/18 05:01; Admin Dose 125 MG; Start 09/15/18 at 12:00 Metronidazole 100 ml @ 100 mls/hr Q6 IVPB Last administered on 09/18/18 05:01; Admin Dose 100 MLS/HR; Start 09/15/18 at 12:00 Ferric Sodium Gluconate Complex 125 mg/Sodium Chloride 110 ml @ 110 mls/hr DAILY@1300 IVPB Last administered on 09/17/18at 13:08; Admin Dose 110 MLS/HR; Start 09/15/18 at 13:00; Stop 09/19/18 at 13:59 Lansoprazole (Prevacid) 30 mg DAILY@06 PEG Last administered on 09/18/18at 05:01; Admin Dose 30 MG; Start 09/16/18 at 06:00 Midodrine (Proamatine) 10 mg TID@09,13,17 PO Last administered on 09/17/18at 17 :31; Admin Dose 10 MG; Start 09/17/18 at 13:00 Albumin Human 100 ml @ 100 mls/hr ONCE ONCE IV Last administered on 09/18/18at 12:11; Admin Dose 100 MLS/HR; Start 09/18/18 at 12:30; Stop 09/18/18 at 13:29 Assessment/Plan Hospital Course (Demo Recall) All IMPRESSION 1. Recent urinary tract infection. 2. Significant anemia with a history of gastrointestinal bleeding. 3. Recurrent pneumonias with tracheostomy. 4. End-stage renal failure on hemodialysis. Plan: 1. Continued broad spectrum antibiotics. 2. Transfusion of packed red blood cells. Monitor h/h, continue Hemonc recommendations with transfusion limits noted. 3. Gastrointestinal evaluation for ongoing gastrointestinal bleed. 4. Iron replacement. 5. Deep venous thrombosis and GI prophylaxis. Overall prognosis guarded consider addressing CODE STATUS. SPENSER RICO MD, [facility] Sep 18, 2018 12:41
--- NOTE | 2018-09-18 13:07 | CONS ---
Assessment/Plan Assessment/Plan Hospital Course (Demo Recall) ID PROGRESS NOTE CURRENT ABX: DAY # => Flagyl IV #4 + Vanco liq GT #4 s/p Ertapenem #5 24H INTERVAL SUMMARY * Patient is frail 83 yo M with chronic debility, generalized weakness, appears frail, opens eyes to verbal otherwise appears encephalopathic. Chronic * HD session in process toda, non-verbal on the Vent, no fevers, VSS, looks comfortable * 09/14/18 CXR Mildly increased interstitial edema suggesting cardiopulmonary congestion. Small left pleural effusion increased. MICRO * 09/13/18 (+)C.DIFF * 09/12/18 (-) MRSA Nares PHYSICAL EXAMINATION: GENERAL: Afebrile, VSS, encephalopathic HEENT: AT, NC, anicteric, left nare pressure ulcer w/eschar NECK: Grossly normal (+)Trach secure to Vent CHEST: Equal chest rise bilaterally = crackles * Left chest PermCath in place, no erythema at insert site HEART: Pulse RRR ABDOMEN: Soft / ND, peg EXTREMITIES: Warm, bilateral hand edema with right hand ecchymosis from lab draw vs PIV, BLEXT edema SKIN: No rash, no diaphoresis ID ASSESSMENT 83 yo M admit with: 1. Recent urinary tract infection -on Ertapenem 2. Acute C.Diff colitis w/rectocele 3. Significant anemia with a history of gastrointestinal bleeding- no active bleeding * Hx of Erosive gastritis and also AV malformation. 4. Recurrent pneumonias with respiratory failure ->(+) tracheostomy. * Hx of Enterococcus trach site 5. End-stage renal failure on hemodialysis. 6. Pacer - with good function, 100% paced now. 7. CAD - hx of open heart surgery 8. CHF w/Abnormal electrocardiogram * 09/14/18 CXR Mildly increased interstitial edema suggesting cardiopulmonary congestion. Small left pleural effusion increased. 9. Hypertension, controlled 10 .End-stage renal disease on hemodialysis 11. Diabetes mellitus- on meds (-)MRSA Nares Screen ABX ALLERGIES: KNDA INVASIVES: PermCATH (08/14/18), Trach, Peg CURRENT ABX: DAY # => => Flagyl IV #4 + Vanco liq GT #4 s/p Ertapenem #5 ID RECOMMENDATIONS/PLAN: Continue ABX Flagy + Vanco Liq for C.Diff -- at least 10 day course -- He may need longer if this is a recurrent C.Diff infection, incomplete database . Consultation Date/Type/Reason Admit Date/Time Sep 12, 2018 at 12:05 Initial Consult Date 09/13/18 Requesting Provider: RUBÉN BENITO MD Date/Time of Note DATE: 09/18/18 TIME: 13:03 Exam/Review of Systems Exam Vitals Vital Signs Date Temp Pulse Resp B/P (MAP) Pulse Ox O2 O2 Flow FiO2 Time Delivery Rate 09/18/18 97.4 60 16 106/53 100 12:46 (70) 09/18/18 Mechanical 10:55 Ventilator 09/18/18 35 05:33 Intake and Output 09/17/18 09/17/18 09/18/18 1414:59 22:59 06:59 IntakeIntake Total 220 ml 460 ml 940 ml OutputOutput Total 400 ml 300 ml BalanceBalance 220 ml 60 ml 640 ml Results Result Diagram: 09/18/18 0608 09/18/18 0521 Results 24hrs Laboratory Tests Test 09/18/18 05:21 09/18/18 06:08 Sodium Level 134 L Potassium Level 3.6 Chloride Level 104 Carbon Dioxide Level 20 L Anion Gap 10 Blood Urea Nitrogen 95 H Creatinine 1.97 H Est Glomerular Filtrat Rate mL/min Glucose Level 110 Calcium Level 7.5 L Magnesium Level 2.2 White Blood Count 7.4 Red Blood Count 2.28 L Hemoglobin 7.5 L Hematocrit 22.9 L Mean Corpuscular Volume 100.4 Mean Corpuscular Hemoglobin 32.9 Mean Corpuscular Hemoglobin Concent 32.8 Red Cell Distribution Width 25.0 H Platelet Count 52 #L Mean Platelet Volume Immature Granulocytes % 12.400 H Neutrophils % Segmented Neutrophils % (Manual) 36 L Band Neutrophils % (Manual) 40 H Lymphocytes % Lymphocytes % (Manual) 9 L Monocytes % Monocytes % (Manual) 7 Eosinophils % Basophils % Metamyelocytes % (manual) 2 H Myelocytes % (Manual) 5 H Promyelocytes % (Manual) 1 H Nucleated Red Blood Cells % 8 H Immature Granulocytes # 0.920 H Neutrophils # Neutrophils # (Manual) 2.9 Band Neutrophils # 2.9 H Lymphocytes (Manual) 0.6 L Lymphocytes # Monocytes # Monocytes # (Manual) 0.5 Eosinophils # Basophils # Metamyelocytes # 0.1 H Myelocytes # 0.3 H Promyelocytes # 0.0 Nucleated Red Blood Cells # Platelet Estimate DECREASED Polychromasia 2+ Hypochromasia 2+ Poikilocytosis 1+ Anisocytosis 2+ Microcytosis 1+ Macrocytosis 1+ Spherocytes 1+ Ovalocytes 1+ Medications Medication Current Medications Albuterol/ Ipratropium (Duoneb) 3 ml Q4H RESP THERAPY PRN HHN SHORTNESS OF BREATH Last administered on 09/14/18 21:38; Admin Dose 3 ML; Start 09/12/18 at 20:30 Ascorbic Acid (Vitamin C) 250 mg DAILY GTB Last administered on 09/17/18 08:41; Admin Dose 250 MG; Start 09/13/18 at 09:00 Collagenase (Santyl) 1 applic BID TOP Last administered on 09/17/18 21:16; Admin Dose 1 APPLIC; Start 09/13/18 at 09:00 Docusate Sodium (Colace Liquid Cup) 50 mg BID GTB Last administered on 9at 08:41; Admin Dose 50 MG; Start 09/13/18 at 09:00 Escitalopram Oxalate (Lexapro) 10 mg DAILY GTB Last administered on 09/17/18 08:41; Admin Dose 10 MG; Start 09/13/18 at 09:00 Finasteride (Proscar) 5 mg DAILY GTB Last administered on 09/17/18 08:41; Admin Dose 5 MG; Start 09/13/18 at 09:00 Acetaminophen/ Hydrocodone Bitart ([place] (5/325)) 1 tab Q6H PRN PO MODERATE PAIN LEVEL 4-6 Last administered on 09/16/18 18:51; Admin Dose 1 TAB; Start 09/12/18 at 21:30 Lorazepam (Ativan) 0.5 mg Q6H PRN GTB ANXIETY Last administered on 09/18/18 05:00; Admin Dose 0.5 MG; Start 09/12/18 at 21:30 Multivit/Ca Carb/ B Cmplx/FA/Prenat (Ofe-Mine) 1 tab DAILY GTB Last administered on 09/17/18 08:41; Admin Dose 1 TAB; Start 09/13/18 at 09:00 Ondansetron HCl (Zofran Tab) 4 mg Q6H PRN GTB NAUSEA AND/OR VOMITING; Start 09/12/18 at 21:30 Zinc Oxide (Zinc Oxide Oint) 1 applic DAILY TOP Last administered on 09/17/18 08:42; Admin Dose 1 APPLIC; Start 09/13/18 at 09:00 Heparin Sodium (Porcine) (Heparin (1000 Units/ml)) 4,000 unit AFTER DIALYSIS CATHETER Last administered on 09/16/18 20:29; Admin Dose 4,000 UNIT; Start 09/13/18 at 16:30 Albumin Human 100 ml @ 100 mls/hr WITH DIALYSIS PRN IV SBP <90 DURING DIALYSIS Last administered on 09/14/18 08:36; Admin Dose 100 MLS/HR; Start 09/13/18 at 16:30 Sodium Chloride (NS) -To prime the dialy... DIRECTED FOR HD PRN IV HD; Start 09/13/18 at 16:30 Epoetin Tim (Epogen (Esrd)) 8,000 units TuThSa@17 SC Last administered on 09/16/18 17:27; Admin Dose 8,000 UNITS; Start 09/13/18 at 17:00 Guaifenesin/ Dextromethorphan (Robitussin Dm Liquid Cup) 5 ml Q4H PRN PO Cough Last administered on 09/18/18 05:01; Admin Dose 5 ML; Start 09/14/18 at 22:00 Vancomycin HCl (Vancomycin Oral Syringe) 125 mg Q6 PO Last administered on 09/18/18 05:01; Admin Dose 125 MG; Start 09/15/18 at 12:00 Metronidazole 100 ml @ 100 mls/hr Q6 IVPB Last administered on 09/18/18 05:01; Admin Dose 100 MLS/HR; Start 09/15/18 at 12:00 Ferric Sodium Gluconate Complex 125 mg/Sodium Chloride 110 ml @ 110 mls/hr DAILY@1300 IVPB Last administered on 09/17/18 13:08; Admin Dose 110 MLS/HR; Start 09/15/18 at 13:00; Stop 09/19/18 at 13:59 Lansoprazole (Prevacid) 30 mg DAILY@06 PEG Last administered on 09/18/18 05:01; Admin Dose 30 MG; Start 09/16/18 at 06:00 Midodrine (Proamatine) 10 mg TID@09,13,17 PO Last administered on 09/17/18at 17:31; Admin Dose 10 MG; Start 09/17/18 at 13:00 Albumin Human 100 ml @ 100 mls/hr ONCE ONCE IV Last administered on 09/18/18at 12:11; Admin Dose 100 MLS/HR; Start 09/18/18 at 12:30; Stop 09/18/18 at 13:29 ANNE-MARIE LUNSFORD CERTIFIED [employer] Sep 18, 2018 13:07
[2018-09-18] MEDS: HEPARIN 1000 UNITS/ML 10 ML INJ CATHETER SCH (13:43)
[2018-09-18] MEDS: DOCUSATE SODIUM 10 MG/ML (10ML CUP) GTB SCH ×2 (14:47→21:52)
[2018-09-18] MEDS: COLLAGENASE 5 GM (UD JAR) TOP SCH ×2 (14:47→21:52)
[2018-09-18] MEDS: ASCORBIC ACID 250 MG TAB GTB SCH (14:48)
[2018-09-18] MEDS: MULTIVIT/CA CARB/B CMPLX/FA TAB GTB SCH (14:48)
[2018-09-18] MEDS: FINASTERIDE 5 MG TAB GTB SCH (14:48)
[2018-09-18] MEDS: ESCITALOPRAM 10 MG TAB GTB SCH (14:48)
[2018-09-18] MEDS: BALSAM PERU/CASTOR OIL 60 GM TUBE TOP SCH (14:49)
[2018-09-18] MEDS: MIDODRINE 5 MG TAB PO SCH ×3 (14:49→17:00)
[2018-09-18] MEDS: ZINC OXIDE 20% 30 GM OINT TOP SCH (14:50)
[2018-09-18] MEDS: SOD FERRIC GLUC COMPLX 125 MG in SOD CHLORIDE 0.9% 100 ML IVPB SCH (15:43)
--- NOTE | 2018-09-18 16:41 | PN ---
Date/Time of Note Date/Time of Note DATE: 09/18/18 TIME: 16:39 Assessment/Plan VTE Prophylaxis Risk score (from [facility] [place]0 risk: 5 SCD applied (from [facility] [place]): Yes Pharmacological prophylaxis: NA/contraindicated Pharm contraindication: thrombocytopenia Lines/Catheters IV [facility]ter Type (from [facility] [place] Urinary Cath still in place: No Assessment/Plan Hospital Course Patient status post hemodialysis today, continues on ventilatory support, tolerates G-tube feeding well, afebrile. Assessment/Plan -C. difficile colitis, continue Vanco via G-tube. Dr. Rebolledo is following in infection disease consultation. -Pancytopenia, status post blood transfusion. Dr. Coleman is following him here in hematology consultation. Dr. Hedrick is following in gastroenterology consultation. 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 Continue Prevacid. -Coronary artery disease status post PCI. Patient with pancytopenia with history of recurrent gastrointestinal bleed, unfortunately cannot be giving aspirin or Plavix. -Permanent pacemaker -Ventilator dependent respiratory failure. Dr. Mendoza is following in pulmonology consultation. -Hemodialysis dependent end-stage renal disease. Continue hemodialysis. Dr. Mari is following in nephrology consultation. -Dysphagia with G-tube -Sacral decubitus. Continue local wound care. -Depression. Continue Lexapro. -History of prostate cancer Further recommendations based on clinical course. Plan of care discussed with Dr. Brown. Result Diagram: 09/18/18 0608 09/18/18 0521 Results 24hrs Laboratory Tests Test 09/18/18 05:21 09/18/18 06:08 Sodium Level 134 L Potassium Level 3.6 Chloride Level 104 Carbon Dioxide Level 20 L Anion Gap 10 Blood Urea Nitrogen 95 H Creatinine 1.97 H Est Glomerular Filtrat Rate mL/min Glucose Level 110 Calcium Level 7.5 L Magnesium Level 2.2 White Blood Count 7.4 Red Blood Count 2.28 L Hemoglobin 7.5 L Hematocrit 22.9 L Mean Corpuscular Volume 100.4 Mean Corpuscular Hemoglobin 32.9 Mean Corpuscular Hemoglobin Concent 32.8 Red Cell Distribution Width 25.0 H Platelet Count 52 #L Mean Platelet Volume Immature Granulocytes % 12.400 H Neutrophils % Segmented Neutrophils % (Manual) 36 L Band Neutrophils % (Manual) 40 H Lymphocytes % Lymphocytes % (Manual) 9 L Monocytes % Monocytes % (Manual) 7 Eosinophils % Basophils % Metamyelocytes % (manual) 2 H Myelocytes % (Manual) 5 H Promyelocytes % (Manual) 1 H Nucleated Red Blood Cells % 8 H Immature Granulocytes # 0.920 H Neutrophils # Neutrophils # (Manual) 2.9 Band Neutrophils # 2.9 H Lymphocytes (Manual) 0.6 L Lymphocytes # Monocytes # Monocytes # (Manual) 0.5 Eosinophils # Basophils # Metamyelocytes # 0.1 H Myelocytes # 0.3 H Promyelocytes # 0.0 Nucleated Red Blood Cells # Platelet Estimate DECREASED Polychromasia 2+ Hypochromasia 2+ Poikilocytosis 1+ Anisocytosis 2+ Microcytosis 1+ Macrocytosis 1+ Spherocytes 1+ Ovalocytes 1+ Exam/Review of Systems Exam Vitals Vital Signs Date Temp Pulse Resp B/P (MAP) Pulse Ox O2 O2 Flow FiO2 Time Delivery Rate 09/18/18 60 16:29 09/18/18 97.6 16 125/78 100 15:50 (94) 09/18/18 Mechanical 13:56 Ventilator 09/18/18 35 05:33 Intake and Output 09/17/18 09/17/18 09/18/18 1515:00 23:00 07:00 IntakeIntake Total 220 ml 460 ml 940 ml OutputOutput Total 400 ml 300 ml BalanceBalance 220 ml 60 ml 640 ml Exam Constitutional: alert, non-verbal Respiratory: diminished breath sounds Cardiovascular: other (PPM) Gastrointestinal: soft, non-tender, other (G-tube) Extremities: normal pulses Neurological: confused Results Results 24hrs Laboratory Tests Test 09/18/18 05:21 09/18/18 06:08 Sodium Level 134 L Potassium Level 3.6 Chloride Level 104 Carbon Dioxide Level 20 L Anion Gap 10 Blood Urea Nitrogen 95 H Creatinine 1.97 H Est Glomerular Filtrat Rate mL/min Glucose Level 110 Calcium Level 7.5 L Magnesium Level 2.2 White Blood Count 7.4 Red Blood Count 2.28 L Hemoglobin 7.5 L Hematocrit 22.9 L Mean Corpuscular Volume 100.4 Mean Corpuscular Hemoglobin 32.9 Mean Corpuscular Hemoglobin Concent 32.8 Red Cell Distribution Width 25.0 H Platelet Count 52 #L Mean Platelet Volume Immature Granulocytes % 12.400 H Neutrophils % Segmented Neutrophils % (Manual) 36 L Band Neutrophils % (Manual) 40 H Lymphocytes % Lymphocytes % (Manual) 9 L Monocytes % Monocytes % (Manual) 7 Eosinophils % Basophils % Metamyelocytes % (manual) 2 H Myelocytes % (Manual) 5 H Promyelocytes % (Manual) 1 H Nucleated Red Blood Cells % 8 H Immature Granulocytes # 0.920 H Neutrophils # Neutrophils # (Manual) 2.9 Band Neutrophils # 2.9 H Lymphocytes (Manual) 0.6 L Lymphocytes # Monocytes # Monocytes # (Manual) 0.5 Eosinophils # Basophils # Metamyelocytes # 0.1 H Myelocytes # 0.3 H Promyelocytes # 0.0 Nucleated Red Blood Cells # Platelet Estimate DECREASED Polychromasia 2+ Hypochromasia 2+ Poikilocytosis 1+ Anisocytosis 2+ Microcytosis 1+ Macrocytosis 1+ Spherocytes 1+ Ovalocytes 1+ Medications Medication Current Medications Albuterol/ Ipratropium (Duoneb) 3 ml Q4H RESP THERAPY PRN HHN SHORTNESS OF BREATH Last administered on 09/14/18 21:38; Admin Dose 3 ML; Start 09/12/18 at 20:30 Ascorbic Acid (Vitamin C) 250 mg DAILY GTB Last administered on 09/18/18 14:48; Admin Dose 250 MG; Start 09/13/18 at 09:00 Collagenase (Santyl) 1 applic BID TOP Last administered on 09/18/18 14:47; Admin Dose 1 APPLIC; Start 09/13/18 at 09:00 Docusate Sodium (Colace Liquid Cup) 50 mg BID GTB Last administered on 09/18/18 14:47; Admin Dose 50 MG; Start 09/13/18 at 09:00 Escitalopram Oxalate (Lexapro) 10 mg DAILY GTB Last administered on 09/18/18 14:48; Admin Dose 10 MG; Start 09/13/18 at 09:00 Finasteride (Proscar) 5 mg DAILY GTB Last administered on 09/18/18 14:48; Admin Dose 5 MG; Start 09/13/18 at 09:00 Acetaminophen/ Hydrocodone Bitart ([place] (5/325)) 1 tab Q6H PRN PO MODERATE PAIN LEVEL 4-6 Last administered on 09/16/18 18:51; Admin Dose 1 TAB; Start 09/12/18 at 21:30 Lorazepam (Ativan) 0.5 mg Q6H PRN GTB ANXIETY Last administered on 09/18/18 05:00; Admin Dose 0.5 MG; Start 09/12/18 at 21:30 Multivit/Ca Carb/ B Cmplx/FA/Prenat (Ofe-Mine) 1 tab DAILY GTB Last administered on 09/18/18 14:48; Admin Dose 1 TAB; Start 09/13/18 at 09:00 Ondansetron HCl (Zofran Tab) 4 mg Q6H PRN GTB NAUSEA AND/OR VOMITING; Start at 21:30 Zinc Oxide (Zinc Oxide Oint) 1 applic DAILY TOP Last administered on 09/18/18 14:50; Admin Dose 1 APPLIC; Start 09/13/18 at 09:00 Heparin Sodium (Porcine) (Heparin (1000 Units/ml)) 4,000 unit AFTER DIALYSIS CATHETER Last administered on 09/18/18 13:43; Admin Dose 4,000 UNIT; Start 09/13/18 at 16:30 Albumin Human 100 ml @ 100 mls/hr WITH DIALYSIS PRN IV SBP <90 DURING DIALYSIS Last administered on 09/14/18 08:36; Admin Dose 100 MLS/HR; Start 09/13/18 at 16:30 Sodium Chloride (NS) -To prime the dialy... DIRECTED FOR HD PRN IV HD; Start 09/13/18 at 16:30 Epoetin Tim (Epogen (Esrd)) 8,000 units TuThSa@17 SC Last administered on 09/16/18 17:27; Admin Dose 8,000 UNITS; Start 09/13/18 at 17:00 Guaifenesin/ Dextromethorphan (Robitussin Dm Liquid Cup) 5 ml Q4H PRN PO Cough Last administered on 09/18/18 05:01; Admin Dose 5 ML; Start 09/14/18 at 22:00 Vancomycin HCl (Vancomycin Oral Syringe) 125 mg Q6 PO Last administered on 09/18/18 14:48; Admin Dose 125 MG; Start 09/15/18 at 12:00 Metronidazole 100 ml @ 100 mls/hr Q6 IVPB Last administered on 09/18/18 14:46 ; Admin Dose 100 MLS/HR; Start 09/15/18 at 12:00 Ferric Sodium Gluconate Complex 125 mg/Sodium Chloride 110 ml @ 110 mls/hr DAILY@1300 IVPB Last administered on 09/18/18at 15:43; Admin Dose 110 MLS/HR; Start 09/15/18 at 13:00; Stop 09/19/18 at 13:59 Lansoprazole (Prevacid) 30 mg DAILY@06 PEG Last administered on 09/18/18at 05:01; Admin Dose 30 MG; Start 09/16/18 at 06:00 Midodrine (Proamatine) 10 mg TID@09,13,17 PO Last administered on 09/18/18at 14:49; Admin Dose 10 MG; Start 09/17/18 at 13:00 RADHA FISHER Sep 18, 2018 16:41
[2018-09-18] MEDS: EPOETIN 4000 UNITS/1 ML INJ (ESRD) SC SCH (17:28)
--- NOTE | 2018-09-18 17:30 | CONS ---
Assessment/Plan Assessment/Plan Assessment/Plan (Daily) 1. Pancytopenia. At this point, no evidence of active GI bleeding. Anemia of chronic disease -FOB negative, Iron panel noted. 2. Coronary artery disease status post PCI. 3. Respiratory failure. 4. Benign prostatic hypertrophy. 5. Depression. 6. Sacral decubitus ulcer. 7. End-stage renal disease on dialysis. 8. Thrombocytopenia platelet count is 40,000 in stable -per heme onc: keep platelets above 20,000, hgb above 7.0 -feel pancytopenia is due to multiple underlying disorders 9. C diff in stool PLAN: FOB Start vanco PO 125mg QID x 10 daysand flagyl 500 mg TID x 10 days We will monitor closely for evidence of GI bleeding. Per heme onc keep plt above 20,000 and hgb above 7.0. Continue wit Prevacid Procrit Consultation Date/Type/Reason Admit Date/Time Sep 12, 2018 at 12:05 Initial Consult Date 09/13/18 Requesting Provider: RUBÉN BENITO MD Date/Time of Note DATE: 09/18/18 TIME: 17:28 24 HR Interval Summary Subjective hx not possible: pt non-verbal Exam/Review of Systems Exam Vitals Vital Signs Date Temp Pulse Resp B/P (MAP) Pulse Ox O2 O2 Flow FiO2 Time Delivery Rate 09/18/18 60 25 100 35 17:19 09/18/18 97.6 125/78 15:50 (94) 09/18/18 Mechanical 13:56 Ventilator Intake and Output 09/17/18 09/17/18 09/18/18 1414:59 22:59 06:59 IntakeIntake Total 220 ml 460 ml 940 ml OutputOutput Total 400 ml 300 ml BalanceBalance 220 ml 60 ml 640 ml Respiratory: clear to auscultation, normal air movement Results Result Diagram: 09/18/18 0608 09/18/18 0521 Results 24hrs Laboratory Tests Test 09/18/18 05:21 09/18/18 06:08 Sodium Level 134 L Potassium Level 3.6 Chloride Level 104 Carbon Dioxide Level 20 L Anion Gap 10 Blood Urea Nitrogen 95 H Creatinine 1.97 H Est Glomerular Filtrat Rate mL/min Glucose Level 110 Calcium Level 7.5 L Magnesium Level 2.2 White Blood Count 7.4 Red Blood Count 2.28 L Hemoglobin 7.5 L Hematocrit 22.9 L Mean Corpuscular Volume 100.4 Mean Corpuscular Hemoglobin 32.9 Mean Corpuscular Hemoglobin Concent 32.8 Red Cell Distribution Width 25.0 H Platelet Count 52 #L Mean Platelet Volume Immature Granulocytes % 12.400 H Neutrophils % Segmented Neutrophils % (Manual) 36 L Band Neutrophils % (Manual) 40 H Lymphocytes % Lymphocytes % (Manual) 9 L Monocytes % Monocytes % (Manual) 7 Eosinophils % Basophils % Metamyelocytes % (manual) 2 H Myelocytes % (Manual) 5 H Promyelocytes % (Manual) 1 H Nucleated Red Blood Cells % 8 H Immature Granulocytes # 0.920 H Neutrophils # Neutrophils # (Manual) 2.9 Band Neutrophils # 2.9 H Lymphocytes (Manual) 0.6 L Lymphocytes # Monocytes # Monocytes # (Manual) 0.5 Eosinophils # Basophils # Metamyelocytes # 0.1 H Myelocytes # 0.3 H Promyelocytes # 0.0 Nucleated Red Blood Cells # Platelet Estimate DECREASED Polychromasia 2+ Hypochromasia 2+ Poikilocytosis 1+ Anisocytosis 2+ Microcytosis 1+ Macrocytosis 1+ Spherocytes 1+ Ovalocytes 1+ Medications Medication Current Medications Albuterol/ Ipratropium (Duoneb) 3 ml Q4H RESP THERAPY PRN HHN SHORTNESS OF BREATH Last administered on 09/14/18 21:38; Admin Dose 3 ML; Start 09/12/18 at 20:30 Ascorbic Acid (Vitamin C) 250 mg DAILY GTB Last administered on 09/18/18 14:48; Admin Dose 250 MG; Start 09/13/18 at 09:00 Collagenase (Santyl) 1 applic BID TOP Last administered on 09/18/18 14:47; Admin Dose 1 APPLIC; Start 09/13/18 at 09:00 Docusate Sodium (Colace Liquid Cup) 50 mg BID GTB Last administered on 09/18/18 14:47; Admin Dose 50 MG; Start 09/13/18 at 09:00 Escitalopram Oxalate (Lexapro) 10 mg DAILY GTB Last administered on 09/18/18 14:48; Admin Dose 10 MG; Start 09/13/18 at 09:00 Finasteride (Proscar) 5 mg DAILY GTB Last administered on 09/18/18 14:48; Admin Dose 5 MG; Start 09/13/18 at 09:00 Acetaminophen/ Hydrocodone Bitart ([place] (5/325)) 1 tab Q6H PRN PO MODERATE PAIN LEVEL 4-6 Last administered on 09/16/18 18:51; Admin Dose 1 TAB; Start 09/12/18 at 21:30 Lorazepam (Ativan) 0.5 mg Q6H PRN GTB ANXIETY Last administered on 09/18/18 05:00; Admin Dose 0.5 MG; Start 09/12/18 at 21:30 Multivit/Ca Carb/ B Cmplx/FA/Prenat (Ofe-Mine) 1 tab DAILY GTB Last admin istered on 09/18/18 14:48; Admin Dose 1 TAB; Start 09/13/18 at 09:00 Ondansetron HCl (Zofran Tab) 4 mg Q6H PRN GTB NAUSEA AND/OR VOMITING; Start 09/12/18 at 21:30 Zinc Oxide (Zinc Oxide Oint) 1 applic DAILY TOP Last administered on 09/18/18 14:50; Admin Dose 1 APPLIC; Start 09/13/18 at 09:00 Heparin Sodium (Porcine) (Heparin (1000 Units/ml)) 4,000 unit AFTER DIALYSIS CATHETER Last administered on 09/18/18 13:43; Admin Dose 4,000 UNIT; Start 09/13/18 at 16:30 Albumin Human 100 ml @ 100 mls/hr WITH DIALYSIS PRN IV SBP <90 DURING DIALYSIS Last administered on 09/14/18 08:36; Admin Dose 100 MLS/HR; Start 09/13/18 at 16:30 Sodium Chloride (NS) -To prime the dialy... DIRECTED FOR HD PRN IV HD; Start 09/13/18 at 16:30 Epoetin Tim (Epogen (Esrd)) 8,000 units TuThSa@17 SC Last administered on 09/16/18 17:27; Admin Dose 8,000 UNITS; Start 09/13/18 at 17:00 Guaifenesin/ Dextromethorphan (Robitussin Dm Liquid Cup) 5 ml Q4H PRN PO Cough Last administered on 09/18/18 05:01; Admin Dose 5 ML; Start 09/14/18 at 22:00 Vancomycin HCl (Vancomycin Oral Syringe) 125 mg Q6 PO Last administered on 09/18/18 14:48; Admin Dose 125 MG; Start 09/15/18 at 12:00 Metronidazole 100 ml @ 100 mls/hr Q6 IVPB Last administered on 09/18/18 14:46; Admin Dose 100 MLS/HR; Start 09/15/18 at 12:00 Ferric Sodium Gluconate Complex 125 mg/Sodium Chloride 110 ml @ 110 mls/hr DAILY@1300 IVPB Last administered on 09/18/18 15:43; Admin Dose 110 MLS/HR; Start 09/15/18 at 13:00; Stop 09/19/18 at 13:59 Lansoprazole (Prevacid) 30 mg DAILY@06 PEG Last administered on 09/18/18 05:01; Admin Dose 30 MG; Start 09/16/18 at 06:00 Midodrine (Proamatine) 10 mg TID@09,13,17 PO Last administered on 09/18/18 14:49; Admin Dose 10 MG; Start 09/17/18 at 13:00 JED SALAS MD Sep 18, 2018 17:30
[2018-09-19] VITALS (24 sets, daily range): BP systolic 103–126; BP diastolic 51–81; PULSE 60–66; RESP 16–35
[2018-09-19] MEDS: LORAZEPAM 0.5 MG TAB GTB PRN ×2 (03:00→21:36)
[2018-09-19] MEDS: metroNIDAZOLE 500 MG/NS (PMX) 100 ML IVPB SCH (05:56)
[2018-09-19] MEDS: VANCOMYCIN HCL 250 MG/5ML POSYG PO SCH ×4 (05:57→17:43)
[2018-09-19] MEDS: LANSOPRAZOLE 30 MG CAP PEG SCH (06:00)
[2018-09-19] MEDS ORDERED: POTASSIUM CHLORIDE (SR) 10 MEQ TAB GTB ONE (08:30)
--- NOTE | 2018-09-19 08:39 | CONS ---
Assessment/Plan Assessment/Plan Hospital Course (Demo Recall) ASSESSMENT AND PLAN: Elderly gentleman with multiple medical problems including cardiovascular heart disease, respiratory failure, kidney damage, chronic renal failure. We were asked to see for pancytopenia -most likely that pancytopenia is mostly due to sepsis and CRI, also has macrocytosis with no nutritional deficiency. given age however cannot rule out MDS, however this can only be diagnosed by bone marrow biopsy and given his current status would not recommend that as only supportive treatment would be offered given his poor performance status -check flow cytometry, he has few immature WBCs on differential, could be reactive but flow may help determine etiology -goal is supportive: Keep hemoglobin above 7 Keep platelets above 10,000. If the platelet drops below 10,000 or the patient bleeds, transfuse 1 unit of platelets. -he has very elevated ferritin c/w anemia of chronic disease/chronic inflammation, Cr is elevated, he is a candidate for procrit -normal B12 and folate on repeat testing -has macrocytosis, SPEP shows no paraprotein spike -check haptoglobin and tammy but doubt hemolysis as bili is normal -can try procrit given renal failure for anemia Consultation Date/Type/Reason Admit Date/Time Sep 12, 2018 at 12:05 Initial Consult Date 09/13/18 Requesting Provider: RUBÉN BENITO MD Date/Time of Note DATE: 09/19/18 TIME: 08:37 Exam/Review of Systems Exam Vitals Vital Signs Date Temp Pulse Resp B/P (MAP) Pulse Ox O2 O2 Flow FiO2 Time Delivery Rate 09/19/18 98.0 61 22 103/51 Mechanical 07:56 (68) Ventilator Trach Collar 09/19/18 100 35 07:32 Intake and Output 09/18/18 09/18/18 09/19/18 1515:00 23:00 07:00 IntakeIntake Total 900 ml 900 ml OutputOutput Total 2200 ml 600 ml BalanceBalance -2200 ml 900 ml 300 ml Results Result Diagram: 09/19/18 0550 09/19/18 0550 Results 24hrs Laboratory Tests Test 09/19/18 05:50 White Blood Count 10.0 # Red Blood Count 2.09 L Hemoglobin 7.4 L Hematocrit 21.7 L Mean Corpuscular Volume 103.8 H Mean Corpuscular Hemoglobin 35.4 H Mean Corpuscular Hemoglobin Concent 34.1 Red Cell Distribution Width 25.7 H Platelet Count 58 L Mean Platelet Volume Immature Granulocytes % 9.100 H Neutrophils % Lymphocytes % Monocytes % Eosinophils % Basophils % Nucleated Red Blood Cells % 3.7 H Immature Granulocytes # 0.910 H Neutrophils # Lymphocytes # Monocytes # Eosinophils # Basophils # Nucleated Red Blood Cells # Sodium Level 135 Potassium Level 3.0 L Chloride Level 101 Carbon Dioxide Level 22 Anion Gap 12 Blood Urea Nitrogen 80 H Creatinine 1.82 H Est Glomerular Filtrat Rate mL/min Glucose Level 98 Calcium Level 7.9 L Medications Medication Current Medications Albuterol/ Ipratropium (Duoneb) 3 ml Q4H RESP THERAPY PRN HHN SHORTNESS OF BREATH Last administered on 09/14/18 21:38; Admin Dose 3 ML; Start 09/12/18 at 20:30 Ascorbic Acid (Vitamin C) 250 mg DAILY GTB Last administered on 09/18/18 14:48; Admin Dose 250 MG; Start 09/13/18 at 09:00 Collagenase (Santyl) 1 applic BID TOP Last administered on 09/18/18 21:52; Admin Dose 1 APPLIC; Start 09/13/18 at 09:00 Docusate Sodium (Colace Liquid Cup) 50 mg BID GTB Last administered on 09/18/18 21:52; Admin Dose 50 MG; Start 09/13/18 at 09:00 Escitalopram Oxalate (Lexapro) 10 mg DAILY GTB Last administered on 09/18/18 14:48; Admin Dose 10 MG; Start 09/13/18 at 09:00 Finasteride (Proscar) 5 mg DAILY GTB Last administered on 09/18/18 14:48; Admin Dose 5 MG; Start 09/13/18 at 09:00 Acetaminophen/ Hydrocodone Bitart ([place] (5/325)) 1 tab Q6H PRN PO MODERATE PAIN LEVEL 4-6 Last administered on 09/16/18 18:51; Admin Dose 1 TAB; Start 09/12/18 at 21:30 Lorazepam (Ativan) 0.5 mg Q6H PRN GTB ANXIETY Last administered on 09/19/18 03:00; Admin Dose 0.5 MG; Start 09/12/18 at 21:30 Multivit/Ca Carb/ B Cmplx/FA/Prenat (Ofe-Mine) 1 tab DAILY GTB Last administered on 09/18/18 14:48; Admin Dose 1 TAB; Start 09/13/18 at 09:00 Ondansetron HCl (Zofran Tab) 4 mg Q6H PRN GTB NAUSEA AND/OR VOMITING; Start 09/12/18 at 21:30 Zinc Oxide (Zinc Oxide Oint) 1 applic DAILY TOP Last administered on 09/18/18 14:50; Admin Dose 1 APPLIC; Start 09/13/18 at 09:00 Heparin Sodium (Porcine) (Heparin (1000 Units/ml)) 4,000 unit AFTER DIALYSIS CATHETER Last administered on 09/18/18 13:43; Admin Dose 4,000 UNIT; Start 09/13/18 at 16:30 Albumin Human 100 ml @ 100 mls/hr WITH DIALYSIS PRN IV SBP <90 DURING DIALYSIS Last administered on 09/14/18 08:36; Admin Dose 100 MLS/HR; Start 09/13/18 at 16:30 Sodium Chloride (NS) -To prime the dialy... DIRECTED FOR HD PRN IV HD; Start 09/13/18 at 16:30 Epoetin Tim (Epogen (Esrd)) 8,000 units TuThSa@17 SC Last administered on 09/18/18 17:28; Admin Dose 8,000 UNITS; Start 09/13/18 at 17:00 Guaifenesin/ Dextromethorphan (Robitussin Dm Liquid Cup) 5 ml Q4H PRN PO Cough Last administered on 09/18/18 05:01; Admin Dose 5 ML; Start 09/14/18 at 22:00 Vancomycin HCl (Vancomycin Oral Syringe) 125 mg Q6 PO Last administered on 09/19/18 05:57; Admin Dose 125 MG; Start 09/15/18 at 12:00 Metronidazole 100 ml @ 100 mls/hr Q6 IVPB Last administered on 09/19/18 05:56; Admin Dose 100 MLS/HR; Start 09/15/18 at 12:00 Ferric Sodium Gluconate Complex 125 mg/Sodium Chloride 110 ml @ 110 mls/hr DAILY@1300 IVPB Last administered on 09/18/18 15:43; Admin Dose 110 MLS/HR; Start 09/15/18 at 13:00; Stop 09/19/18 at 13:59 Lansoprazole (Prevacid) 30 mg DAILY@06 PEG Last administered on 09/19/18at 06:00; Admin Dose 30 MG; Start 09/16/18 at 06:00 Midodrine (Proamatine) 10 mg TID@,,17 PO Last administered on 09/18/18at 14:49; Admin Dose 10 MG; Start 09/17/18 at 13:00 IVÁN GONZALEZ Sep 19, 2018 08:39
[2018-09-19] MEDS: BALSAM PERU/CASTOR OIL 60 GM TUBE TOP SCH (09:07)
[2018-09-19] MEDS: COLLAGENASE 5 GM (UD JAR) TOP SCH ×2 (09:07→21:36)
[2018-09-19] MEDS: ZINC OXIDE 20% 30 GM OINT TOP SCH (09:07)
[2018-09-19] MEDS: DOCUSATE SODIUM 10 MG/ML (10ML CUP) GTB SCH (09:07)
[2018-09-19] MEDS: ESCITALOPRAM 10 MG TAB GTB SCH (09:08)
[2018-09-19] MEDS: ASCORBIC ACID 250 MG TAB GTB SCH (09:08)
[2018-09-19] MEDS: FINASTERIDE 5 MG TAB GTB SCH (09:08)
[2018-09-19] MEDS: MULTIVIT/CA CARB/B CMPLX/FA TAB GTB SCH (09:08)
[2018-09-19] MEDS: MIDODRINE 5 MG TAB PO SCH ×3 (09:10→17:00)
--- NOTE | 2018-09-19 10:10 | CONS ---
Assessment/Plan Assessment/Plan Assessment/Plan (Daily) 1. Pancytopenia. At this point, no evidence of active GI bleeding. Anemia of chronic disease -FOB negative, Iron panel noted. 2. Coronary artery disease status post PCI. 3. Respiratory failure. 4. Benign prostatic hypertrophy. 5. Depression. 6. Sacral decubitus ulcer. 7. End-stage renal disease on dialysis. 8. Thrombocytopenia platelet count is 40,000 in stable -per heme onc: keep platelets above 20,000, hgb above 7.0 -feel pancytopenia is due to multiple underlying disorders 9. C diff in stool PLAN: FOB Start vanco PO 125mg QID x 10 days We will monitor closely for evidence of GI bleeding. Per heme onc keep plt above 20,000 and hgb above 7.0. Continue with pepcid Procrit DC Colace Consultation Date/Type/Reason Admit Date/Time Sep 12, 2018 at 12:05 Initial Consult Date 09/13/18 Requesting Provider: RUBÉN BENITO MD Date/Time of Note DATE: 09/19/18 TIME: 10:07 24 HR Interval Summary Free Text/Dictation Discussed with the staff no evidence of GI bleeding Subjective hx not possible: pt non-verbal Exam/Review of Systems Exam Vitals Vital Signs Date Temp Pulse Resp B/P (MAP) Pulse Ox O2 O2 Flow FiO2 Time Delivery Rate 09/19/18 60 09:03 09/19/18 98.0 22 103/51 Mechanical 07:56 (68) Ventilator Trach Collar 09/19/18 100 35 07:32 Intake and Output 09/18/18 09/18/18 09/19/18 1515:00 23:00 07:00 IntakeIntake Total 900 ml 900 ml OutputOutput Total 2200 ml 600 ml BalanceBalance -2200 ml 900 ml 300 ml Constitutional: non-verbal ENMT: nl external ears & nose, nl lips & teeth, nl nasal mucosa & septum Results Result Diagram: 09/19/18 0550 09/19/18 0550 Results 24hrs Laboratory Tests Test 09/19/18 05:50 White Blood Count 10.0 # Red Blood Count 2.09 L Hemoglobin 7.4 L Hematocrit 21.7 L Mean Corpuscular Volume 103.8 H Mean Corpuscular Hemoglobin 35.4 H Mean Corpuscular Hemoglobin Concent 34.1 Red Cell Distribution Width 25.7 H Platelet Count 58 L Mean Platelet Volume Immature Granulocytes % 9.100 H Neutrophils % Segmented Neutrophils % (Manual) 43 Band Neutrophils % (Manual) 37 H Lymphocytes % Lymphocytes % (Manual) 9 L Monocytes % Monocytes % (Manual) 2 Eosinophils % Eosinophils % (Manual) 1 Basophils % Metamyelocytes % (manual) 1 H Myelocytes % (Manual) 6 H Promyelocytes % (Manual) 1 H Nucleated Red Blood Cells % 6 H Immature Granulocytes # 0.910 H Neutrophils # Neutrophils # (Manual) 4.7 Band Neutrophils # 3.7 H Lymphocytes (Manual) 0.9 Lymphocytes # Monocytes # Monocytes # (Manual) 0.2 L Eosinophils # Basophils # Metamyelocytes # 0.1 H Myelocytes # 0.6 H Promyelocytes # 0.1 H Nucleated Red Blood Cells # Platelet Estimate SIG DECREASED Giant Platelets 2 H Polychromasia 1+ Anisocytosis 2+ Macrocytosis 1+ Spherocytes 1+ Sodium Level 135 Potassium Level 3.0 L Chloride Level 101 Carbon Dioxide Level 22 Anion Gap 12 Blood Urea Nitrogen 80 H Creatinine 1.82 H Est Glomerular Filtrat Rate mL/min Glucose Level 98 Calcium Level 7.9 L Medications Medication Current Medications Albuterol/ Ipratropium (Duoneb) 3 ml Q4H RESP THERAPY PRN HHN SHORTNESS OF BREATH Last administered on 09/14/18 21:38; Admin Dose 3 ML; Start 09/12/18 at 20:30 Ascorbic Acid (Vitamin C) 250 mg DAILY GTB Last administered on 09/19/18 09:08; Admin Dose 250 MG; Start 09/13/18 at 09:00 Collagenase (Santyl) 1 applic BID TOP Last administered on 09/19/18 09:07; Admin Dose 1 APPLIC; Start 09/13/18 at 09:00 Docusate Sodium (Colace Liquid Cup) 50 mg BID GTB Last administered on 09/19/18 09:07; Admin Dose 50 MG; Start 09/13/18 at 09:00 Escitalopram Oxalate (Lexapro) 10 mg DAILY GTB Last administered on 09/19/18 09:08; Admin Dose 10 MG; Start 09/13/18 at 09:00 Finasteride (Proscar) 5 mg DAILY GTB Last administered on 09/19/18 09:08; Admin Dose 5 MG; Start 09/13/18 at 09:00 Acetaminophen/ Hydrocodone Bitart (Cook (5/325)) 1 tab Q6H PRN PO MODERATE PAIN LEVEL 4-6 Last administered on 09/16/18 18:51; Admin Dose 1 TAB; Start 09/12/18 at 21:30 Lorazepam (Ativan) 0.5 mg Q6H PRN GTB ANXIETY Last administered on 09/19/18 03:00; Admin Dose 0.5 MG; Start 09/12/18 at 21:30 Multivit/Ca Carb/ B Cmplx/FA/Prenat (Ofe-Mine) 1 tab DAILY GTB Last administered on 09/19/18 09:08; Admin Dose 1 TAB; Start 09/13/18 at 09:00 Ondansetron HCl (Zofran Tab) 4 mg Q6H PRN GTB NAUSEA AND/OR VOMITING; Start 09/12/18 at 21:30 Zinc Oxide (Zinc Oxide Oint) 1 applic DAILY TOP Last administered on 09/19/18 09:07; Admin Dose 1 APPLIC; Start 09/13/18 at 09:00 Heparin Sodium (Porcine) (Heparin (1000 Units/ml)) 4,000 unit AFTER DIALYSIS CATHETER Last administered on 09/18/18 13:43; Admin Dose 4,000 UNIT; Start 09/13/18 at 16:30 Albumin Human 100 ml @ 100 mls/hr WITH DIALYSIS PRN IV SBP <90 DURING DIALYSIS Last administered on 09/14/18 08:36; Admin Dose 100 MLS/HR; Start 09/13/18 at 16:30 Sodium Chloride (NS) -To prime the dialy... DIRECTED FOR HD PRN IV HD; Start 09/13/18 at 16:30 Epoetin Tim (Epogen (Esrd)) 8,000 units TuThSa@17 SC Last administered on 09/18/18 17:28; Admin Dose 8,000 UNITS; Start 09/13/18 at 17:00 Guaifenesin/ Dextromethorphan (Robitussin Dm Liquid Cup) 5 ml Q4H PRN PO Cough Last administered on 09/18/18 05:01; Admin Dose 5 ML; Start 09/14/18 at 22:00 Vancomycin HCl (Vancomycin Oral Syringe) 125 mg Q6 PO Last administered on 09/19/18at 05:57; Admin Dose 125 MG; Start 09/15/18 at 12:00 Metronidazole 100 ml @ 100 mls/hr Q6 IVPB Last administered on 09/19/18at 05:56; Admin Dose 100 MLS/HR; Start 09/15/18 at 12:00 Ferric Sodium Gluconate Complex 125 mg/Sodium Chloride 110 ml @ 110 mls/hr DAILY@1300 IVPB Last administered on 09/18/18at 15:43; Admin Dose 110 MLS/HR; Start 09/15/18 at 13:00; Stop 09/19/18 at 13:59 Lansoprazole (Prevacid) 30 mg DAILY@06 PEG Last administered on 09/19/18at 06:00; Admin Dose 30 MG; Start 09/16/18 at 06:00 Midodrine (Proamatine) 10 mg TID@,,17 PO Last administered on 09/19/18at 09:10; Admin Dose 10 MG; Start 09/17/18 at 13:00 JED SALAS MD Sep 19, 2018 10:10
--- NOTE | 2018-09-19 10:17 | CONS ---
Assessment/Plan Assessment/Plan Assessment/Plan (Daily) 1. acute fluid overload due to inadquate HD due to hypotension 2. Severe anemia concerned about GI bleeding 3. Hypokalemia 4. ESRD on HD on Sat, , saturday schedule at [facility] 5. h/o HTN 6. h/o HL 7. H/o Prostate CA 8. H/O Chronic respiratory failure s/p tracheostomy in place 9. iron deficiency anemia 10. Pancytopenia Plan: s/p HD yesterday 1.2 L removed, continue midodrine to 10mg PO TID for BP support Epogen 8000 units SQ TTS we will keep pt on Sat, , saturday schedule- Next HD will be on saturday Hematolgoy oncology has been following for pancytopenia which thought due to sepsis IV Ferrlectin x 5 doses for iron deficiency anemia will follow up Consultation Date/Type/Reason Admit Date/Time Sep 12, 2018 at 12:05 Initial Consult Date 09/13/18 Type of Consult NEPHROLOGY Requesting Provider: RUBÉN BENITO MD Date/Time of Note DATE: 09/19/18 TIME: 10:17 Exam/Review of Systems Exam Vitals Vital Signs Date Temp Pulse Resp B/P (MAP) Pulse Ox O2 O2 Flow FiO2 Time Delivery Rate 09/19/18 60 09:03 09/19/18 98.0 22 103/51 Mechanical 07:56 (68) Ventilator Trach Collar 09/19/18 100 35 07:32 Intake and Output 09/18/18 09/18/18 09/19/18 1515:00 23:00 07:00 IntakeIntake Total 900 ml 900 ml OutputOutput Total 2200 ml 600 ml BalanceBalance -2200 ml 900 ml 300 ml Results Result Diagram: 09/19/18 0550 09/19/18 0550 Results 24hrs Laboratory Tests Test 09/19/18 05:50 White Blood Count 10.0 # Red Blood Count 2.09 L Hemoglobin 7.4 L Hematocrit 21.7 L Mean Corpuscular Volume 103.8 H Mean Corpuscular Hemoglobin 35.4 H Mean Corpuscular Hemoglobin Concent 34.1 Red Cell Distribution Width 25.7 H Platelet Count 58 L Mean Platelet Volume Immature Granulocytes % 9.100 H Neutrophils % Segmented Neutrophils % (Manual) 43 Band Neutrophils % (Manual) 37 H Lymphocytes % Lymphocytes % (Manual) 9 L Monocytes % Monocytes % (Manual) 2 Eosinophils % Eosinophils % (Manual) 1 Basophils % Metamyelocytes % (manual) 1 H Myelocytes % (Manual) 6 H Promyelocytes % (Manual) 1 H Nucleated Red Blood Cells % 6 H Immature Granulocytes # 0.910 H Neutrophils # Neutrophils # (Manual) 4.7 Band Neutrophils # 3.7 H Lymphocytes (Manual) 0.9 Lymphocytes # Monocytes # Monocytes # (Manual) 0.2 L Eosinophils # Basophils # Metamyelocytes # 0.1 H Myelocytes # 0.6 H Promyelocytes # 0.1 H Nucleated Red Blood Cells # Platelet Estimate SIG DECREASED Giant Platelets 2 H Polychromasia 1+ Anisocytosis 2+ Macrocytosis 1+ Spherocytes 1+ Sodium Level 135 Potassium Level 3.0 L Chloride Level 101 Carbon Dioxide Level 22 Anion Gap 12 Blood Urea Nitrogen 80 H Creatinine 1.82 H Est Glomerular Filtrat Rate mL/min Glucose Level 98 Calcium Level 7.9 L Medications Medication Current Medications Albuterol/ Ipratropium (Duoneb) 3 ml Q4H RESP THERAPY PRN HHN SHORTNESS OF BREATH Last administered on 09/14/18 21:38; Admin Dose 3 ML; Start 09/12/18 at 20:30 Ascorbic Acid (Vitamin C) 250 mg DAILY GTB Last administered on 09/19/18 09:08; Admin Dose 250 MG; Start 09/13/18 at 09:00 Collagenase (Santyl) 1 applic BID TOP Last administered on 09/19/18 09:07; Admin Dose 1 APPLIC; Start 09/13/18 at 09:00 Escitalopram Oxalate (Lexapro) 10 mg DAILY GTB Last administered on 09/19/18 09:08; Admin Dose 10 MG; Start 09/13/18 at 09:00 Finasteride (Proscar) 5 mg DAILY GTB Last administered on 09/19/18 09:08; Admin Dose 5 MG; Start 09/13/18 at 09:00 Acetaminophen/ Hydrocodone Bitart ([place] (5/325)) 1 tab Q6H PRN PO MODERATE PAIN LEVEL 4-6 Last administered on 09/16/18 18:51; Admin Dose 1 TAB; Start 09/12/18 at 21:30 Lorazepam (Ativan) 0.5 mg Q6H PRN GTB ANXIETY Last administered on 09/19/18 03:00; Admin Dose 0.5 MG; Start 09/12/18 at 21:30 Multivit/Ca Carb/ B Cmplx/FA/Prenat (Ofe-Mine) 1 tab DAILY GTB Last administered on 09/19/18 09:08; Admin Dose 1 TAB; Start 09/13/18 at 09:00 Ondansetron HCl (Zofran Tab) 4 mg Q6H PRN GTB NAUSEA AND/OR VOMITING; Start 09/12/18 at 21:30 Zinc Oxide (Zinc Oxide Oint) 1 applic DAILY TOP Last administered on 09/19/18 09:07; Admin Dose 1 APPLIC; Start 09/13/18 at 09:00 Heparin Sodium (Porcine) (Heparin (1000 Units/ml)) 4,000 unit AFTER DIALYSIS CATHETER Last administered on 09/18/18 13:43; Admin Dose 4,000 UNIT; Start 09/13/18 at 16:30 Albumin Human 100 ml @ 100 mls/hr WITH DIALYSIS PRN IV SBP <90 DURING DIALYSIS Last administered on 09/14/18 08:36; Admin Dose 100 MLS/HR; Start 09/13/18 at 16:30 Sodium Chloride (NS) -To prime the dialy... DIRECTED FOR HD PRN IV HD; Start 09/13/18 at 16:30 Epoetin Tim (Epogen (Esrd)) 8,000 units TuThSa@17 SC Last administered on 09/18/18 17:28; Admin Dose 8,000 UNITS; Start 09/13/18 at 17:00 Guaifenesin/ Dextromethorphan (Robitussin Dm Liquid Cup) 5 ml Q4H PRN PO Cough Last administered on 09/18/18 05:01; Admin Dose 5 ML; Start 09/14/18 at 22:00 Vancomycin HCl (Vancomycin Oral Syringe) 125 mg Q6 PO Last administered on 09/19/18 05:57; Admin Dose 125 MG; Start 09/15/18 at 12:00 Ferric Sodium Gluconate Complex 125 mg/Sodium Chloride 110 ml @ 110 mls/hr DAILY@1300 IVPB Last administered on 09/18/18 15:43; Admin Dose 110 MLS/HR; Start 09/15/18 at 13:00; Stop 09/19/18 at 13:59 Midodrine (Proamatine) 10 mg TID@,, PO Last administered on 09/19/18at 09:10; Admin Dose 10 MG; Start 09/17/18 at 13:00 Famotidine (Pepcid) 40 mg HS GTB ; Start 09/19/18 at 21:00 FELICIANO RAMIREZ MD Sep 19, 2018 10:17
--- NOTE | 2018-09-19 11:23 | PN ---
Date/Time of Note Date/Time of Note DATE: 09/19/18 TIME: 11:21 Assessment/Plan VTE Prophylaxis Risk score (from Ns)>0 risk: 5 SCD applied (from Ns): No Lines/Catheters IV C[facility]ter [facility]from [facility] Saline Lock Assessment/Plan Assessment/Plan - hYPOKALEMIA -C. difficile colitis, continue Vanco via G-tube. Dr. Rebolledo is following in infection disease consultation. -Pancytopenia, status post blood transfusion. Dr. Coleman is following him here in hematology consultation. Dr. Hedrick is following in gastroenterology consultation. 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 Continue Prevacid. -Coronary artery disease status post PCI. Patient with pancytopenia with history of recurrent gastrointestinal bleed, unfortunately cannot be giving aspirin or Plavix. -Permanent pacemaker -Ventilator dependent respiratory failure. Dr. Mendoza is following in pu lmonology consultation. -Hemodialysis dependent end-stage renal disease. Continue hemodialysis. Dr. Mari is following in nephrology consultation. -Dysphagia with G-tube -Sacral decubitus. Continue local wound care. -Depression. Continue Lexapro. -History of prostate cancer Further recommendations based on clinical course. Plan of care discussed with Dr. Brown. Result Diagram: 09/19/18 0550 09/19/18 0550 Results 24hrs Laboratory Tests Test 09/19/18 05:50 White Blood Count 10.0 # Red Blood Count 2.09 L Hemoglobin 7.4 L Hematocrit 21.7 L Mean Corpuscular Volume 103.8 H Mean Corpuscular Hemoglobin 35.4 H Mean Corpuscular Hemoglobin Concent 34.1 Red Cell Distribution Width 25.7 H Platelet Count 58 L Mean Platelet Volume Immature Granulocytes % 9.100 H Neutrophils % Segmented Neutrophils % (Manual) 43 Band Neutrophils % (Manual) 37 H Lymphocytes % Lymphocytes % (Manual) 9 L Monocytes % Monocytes % (Manual) 2 Eosinophils % Eosinophils % (Manual) 1 Basophils % Metamyelocytes % (manual) 1 H Myelocytes % (Manual) 6 H Promyelocytes % (Manual) 1 H Nucleated Red Blood Cells % 6 H Immature Granulocytes # 0.910 H Neutrophils # Neutrophils # (Manual) 4.7 Band Neutrophils # 3.7 H Lymphocytes (Manual) 0.9 Lymphocytes # Monocytes # Monocytes # (Manual) 0.2 L Eosinophils # Basophils # Metamyelocytes # 0.1 H Myelocytes # 0.6 H Promyelocytes # 0.1 H Nucleated Red Blood Cells # Platelet Estimate SIG DECREASED Giant Platelets 2 H Polychromasia 1+ Anisocytosis 2+ Macrocytosis 1+ Spherocytes 1+ Sodium Level 135 Potassium Level 3.0 L Chloride Level 101 Carbon Dioxide Level 22 Anion Gap 12 Blood Urea Nitrogen 80 H Creatinine 1.82 H Est Glomerular Filtrat Rate mL/min Glucose Level 98 Calcium Level 7.9 L Exam/Review of Systems Exam Vitals Vital Signs Date Temp Pulse Resp B/P (MAP) Pulse Ox O2 O2 Flow FiO2 Time Delivery Rate 09/19/18 60 23 100 35 11:14 09/19/18 98.0 103/51 Mechanical 07:56 (68) Ventilator Trach Collar Intake and Output 09/18/18 09/18/18 09/19/18 1515:00 23:00 07:00 IntakeIntake Total 900 ml 900 ml OutputOutput Total 2200 ml 600 ml BalanceBalance -2200 ml 900 ml 300 ml Results Results 24hrs Laboratory Tests Test 09/19/18 05:50 White Blood Count 10.0 # Red Blood Count 2.09 L Hemoglobin 7.4 L Hematocrit 21.7 L Mean Corpuscular Volume 103.8 H Mean Corpuscular Hemoglobin 35.4 H Mean Corpuscular Hemoglobin Concent 34.1 Red Cell Distribution Width 25.7 H Platelet Count 58 L Mean Platelet Volume Immature Granulocytes % 9.100 H Neutrophils % Segmented Neutrophils % (Manual) 43 Band Neutrophils % (Manual) 37 H Lymphocytes % Lymphocytes % (Manual) 9 L Monocytes % Monocytes % (Manual) 2 Eosinophils % Eosinophils % (Manual) 1 Basophils % Metamyelocytes % (manual) 1 H Myelocytes % (Manual) 6 H Promyelocytes % (Manual) 1 H Nucleated Red Blood Cells % 6 H Immature Granulocytes # 0.910 H Neutrophils # Neutrophils # (Manual) 4.7 Band Neutrophils # 3.7 H Lymphocytes (Manual) 0.9 Lymphocytes # Monocytes # Monocytes # (Manual) 0.2 L Eosinophils # Basophils # Metamyelocytes # 0.1 H Myelocytes # 0.6 H Promyelocytes # 0.1 H Nucleated Red Blood Cells # Platelet Estimate SIG DECREASED Giant Platelets 2 H Polychromasia 1+ Anisocytosis 2+ Macrocytosis 1+ Spherocytes 1+ Sodium Level 135 Potassium Level 3.0 L Chloride Level 101 Carbon Dioxide Level 22 Anion Gap 12 Blood Urea Nitrogen 80 H Creatinine 1.82 H Est Glomerular Filtrat Rate mL/min Glucose Level 98 Calcium Level 7.9 L Medications Medication Current Medications Albuterol/ Ipratropium (Duoneb) 3 ml Q4H RESP THERAPY PRN HHN SHORTNESS OF BREATH Last administered on 09/14/18 21:38; Admin Dose 3 ML; Start 09/12/18 at 20:30 Ascorbic Acid (Vitamin C) 250 mg DAILY GTB Last administered on 09/19/18 09:08; Admin Dose 250 MG; Start 09/13/18 at 09:00 Collagenase (Santyl) 1 applic BID TOP Last administered on 09/19/18 09:07; Admin Dose 1 APPLIC; Start 09/13/18 at 09:00 Escitalopram Oxalate (Lexapro) 10 mg DAILY GTB Last administered on 09/19/18 09:08; Admin Dose 10 MG; Start 09/13/18 at 09:00 Finasteride (Proscar) 5 mg DAILY GTB Last administered on 09/19/18 09:08; Admin Dose 5 MG; Start 09/13/18 at 09:00 Acetaminophen/ Hydrocodone Bitart ([place] (5/325)) 1 tab Q6H PRN PO MODERATE PAIN LEVEL 4-6 Last administered on 09/16/18 18:51; Admin Dose 1 TAB; Start 09/12/18 at 21:30 Lorazepam (Ativan) 0.5 mg Q6H PRN GTB ANXIETY Last administered on 09/19/18 03:00; Admin Dose 0.5 MG; Start 09/12/18 at 21:30 Multivit/Ca Carb/ B Cmplx/FA/Prenat (Ofe-Mine) 1 tab DAILY GTB Last administered on 09/19/18 09:08; Admin Dose 1 TAB; Start 09/13/18 at 09:00 Ondansetron HCl (Zofran Tab) 4 mg Q6H PRN GTB NAUSEA AND/OR VOMITING; Start 09/12/18 at 21:30 Zinc Oxide (Zinc Oxide Oint) 1 applic DAILY TOP Last administered on 09/19/18 09:07; Admin Dose 1 APPLIC; Start 09/13/18 at 09:00 Heparin Sodium (Porcine) (Heparin (1000 Units/ml)) 4,000 unit AFTER DIALYSIS CATHETER Last administered on 09/18/18 13:43; Admin Dose 4,000 UNIT; Start 09/13/18 at 16:30 Albumin Human 100 ml @ 100 mls/hr WITH DIALYSIS PRN IV SBP <90 DURING DIALYSIS Last administered on 09/14/18 08:36; Admin Dose 100 MLS/HR; Start 09/13/18 at 16:30 Sodium Chloride (NS) -To prime the dialy... DIRECTED FOR HD PRN IV HD; Start 09/13/18 at 16:30 Epoetin Tim (Epogen (Esrd)) 8,000 units TuThSa@17 SC Last administered on 09/18/18 17:28; Admin Dose 8,000 UNITS; Start 09/13/18 at 17:00 Guaifenesin/ Dextromethorphan (Robitussin Dm Liquid Cup) 5 ml Q4H PRN PO Cough Last administered on 09/18/18 05:01; Admin Dose 5 ML; Start 09/14/18 at 22:00 Vancomycin HCl (Vancomycin Oral Syringe) 125 mg Q6 PO Last administered on 09/19/18 05:57; Admin Dose 125 MG; Start 09/15/18 at 12:00 Ferric Sodium Gluconate Complex 125 mg/Sodium Chloride 110 ml @ 110 mls/hr DAILY@1300 IVPB Last administered on 09/18/18 15:43; Admin Dose 110 MLS/HR; Start 09/15/18 at 13:00; Stop 09/19/18 at 13:59 Midodrine (Proamatine) 10 mg TID@,,17 PO Last administered on 09/19/18at 09:10; Admin Dose 10 MG; Start 09/17/18 at 13:00 Famotidine (Pepcid) 40 mg HS GTB ; Start 09/19/18 at 21:00 JENNIFER RICHARD Sep 19, 2018 11:23
[2018-09-19] MEDS: SOD FERRIC GLUC COMPLX 125 MG in SOD CHLORIDE 0.9% 100 ML IVPB SCH (12:05)
--- NOTE | 2018-09-19 12:17 | CONS ---
Assessment/Plan Assessment/Plan Hospital Course (Demo Recall) IMP: 1.BRadycardia-possible miscounting by tele monitor- no recurrent jey by tele 2.PPM-v paced at 60. No signs of dysfunction 3.c diff 4.ESRD on HD 5. Resp failure-chronic s/p trach 6. Hypotension-on midodrine with improved BP Recc: -Tele -serial ecg's -Follow rhythm/rate closely -Continue flagyl/vanc -midodrine BP support as necessary -HD for volume removal which is ongoiong now -albumin infusion Consultation Date/Type/Reason Admit Date/Time Sep 12, 2018 at 12:05 Initial Consult Date 09/13/18 Type of Consult Cardiology Reason for Consultation BRadycardia Requesting Provider: RUBÉN BENITO MD Date/Time of Note DATE: 09/19/18 TIME: 12:15 Exam/Review of Systems Vital Signs Vitals Vital Signs Date Temp Pulse Resp B/P (MAP) Pulse Ox O2 O2 Flow FiO2 Time Delivery Rate 09/19/18 60 23 100 35 11:14 09/19/18 98.0 103/51 Mechanical 07:56 (68) Ventilator Trach Collar Intake and Output 09/18/18 09/18/18 09/19/18 1515:00 23:00 07:00 IntakeIntake Total 900 ml 900 ml OutputOutput Total 2200 ml 600 ml BalanceBalance -2200 ml 900 ml 300 ml Exam Exam Review of Systems: CONSTITUTIONAL: No fevers, chills. PULMONARY: No sob CARDIOVASCULAR: No chest pain/palpitations GASTROINTESTINAL: No nausea/vomiting. GENITOURINARY: No hematuria/dysuria. MUSCULOSKELETAL: No myagias/arthalgias. PSYCHIATRIC: The patient denies depression. NEUROLOGIC: No weakness Constitutional: alert Psych: no complaints, confusion Head: normocephalic ENMT: mucosa pink and moist Neck: supple, jvd (9 cm water) Respiratory: diminished breath sounds (at bases/B) Cardiovascular: regular rate and rhythm Gastrointestinal: soft, non-tender Musculoskeletal: muscle tone (normal) Extremities: edema (none) Neurological: other (No focal deficits) Labs Result Diagram: 09/19/18 0550 09/19/18 0550 Results 24hrs Laboratory Tests Test 09/19/18 05:50 White Blood Count 10.0 # Red Blood Count 2.09 L Hemoglobin 7.4 L Hematocrit 21.7 L Mean Corpuscular Volume 103.8 H Mean Corpuscular Hemoglobin 35.4 H Mean Corpuscular Hemoglobin Concent 34.1 Red Cell Distribution Width 25.7 H Platelet Count 58 L Mean Platelet Volume Immature Granulocytes % 9.100 H Neutrophils % Segmented Neutrophils % (Manual) 43 Band Neutrophils % (Manual) 37 H Lymphocytes % Lymphocytes % (Manual) 9 L Monocytes % Monocytes % (Manual) 2 Eosinophils % Eosinophils % (Manual) 1 Basophils % Metamyelocytes % (manual) 1 H Myelocytes % (Manual) 6 H Promyelocytes % (Manual) 1 H Nucleated Red Blood Cells % 6 H Immature Granulocytes # 0.910 H Neutrophils # Neutrophils # (Manual) 4.7 Band Neutrophils # 3.7 H Lymphocytes (Manual) 0.9 Lymphocytes # Monocytes # Monocytes # (Manual) 0.2 L Eosinophils # Basophils # Metamyelocytes # 0.1 H Myelocytes # 0.6 H Promyelocytes # 0.1 H Nucleated Red Blood Cells # Platelet Estimate SIG DECREASED Giant Platelets 2 H Polychromasia 1+ Anisocytosis 2+ Macrocytosis 1+ Spherocytes 1+ Sodium Level 135 Potassium Level 3.0 L Chloride Level 101 Carbon Dioxide Level 22 Anion Gap 12 Blood Urea Nitrogen 80 H Creatinine 1.82 H Est Glomerular Filtrat Rate mL/min Glucose Level 98 Calcium Level 7.9 L Medications Medications Current Medications Albuterol/ Ipratropium (Duoneb) 3 ml Q4H RESP THERAPY PRN HHN SHORTNESS OF BREATH Last administered on 09/14/18at 21:38; Admin Dose 3 ML; Start 09/12/18 at 20:30 Ascorbic Acid (Vitamin C) 250 mg DAILY GTB Last administered on 09/19/18 09:08; Admin Dose 250 MG; Start 09/13/18 at 09:00 Collagenase (Santyl) 1 applic BID TOP Last administered on 09/19/18 09:07; Admin Dose 1 APPLIC; Start 09/13/18 at 09:00 Escitalopram Oxalate (Lexapro) 10 mg DAILY GTB Last administered on 09/19/18 09:08; Admin Dose 10 MG; Start 09/13/18 at 09:00 Finasteride (Proscar) 5 mg DAILY GTB Last administered on 09/19/18 09:08; Admi n Dose 5 MG; Start 09/13/18 at 09:00 Acetaminophen/ Hydrocodone Bitart ([place] (5/325)) 1 tab Q6H PRN PO MODERATE PAIN LEVEL 4-6 Last administered on 09/16/18 18:51; Admin Dose 1 TAB; Start 09/12/18 at 21:30 Lorazepam (Ativan) 0.5 mg Q6H PRN GTB ANXIETY Last administered on 09/19/18 03:00; Admin Dose 0.5 MG; Start 09/12/18 at 21:30 Multivit/Ca Carb/ B Cmplx/FA/Prenat (Ofe-Mine) 1 tab DAILY GTB Last administered on 09/19/18 09:08; Admin Dose 1 TAB; Start 09/13/18 at 09:00 Ondansetron HCl (Zofran Tab) 4 mg Q6H PRN GTB NAUSEA AND/OR VOMITING; Start 09/12/18 at 21:30 Zinc Oxide (Zinc Oxide Oint) 1 applic DAILY TOP Last administered on 09/19/18 09:07; Admin Dose 1 APPLIC; Start 09/13/18 at 09:00 Heparin Sodium (Porcine) (Heparin (1000 Units/ml)) 4,000 unit AFTER DIALYSIS CATHETER Last administered on 09/18/18 13:43; Admin Dose 4,000 UNIT; Start 09/13/18 at 16:30 Albumin Human 100 ml @ 100 mls/hr WITH DIALYSIS PRN IV SBP <90 DURING DIALYSIS Last administered on 09/14/18 08:36; Admin Dose 100 MLS/HR; Start 09/13/18 at 16:30 Sodium Chloride (NS) -To prime the dialy... DIRECTED FOR HD PRN IV HD; Start 09/13/18 at 16:30 Epoetin Tim (Epogen (Esrd)) 8,000 units TuThSa@17 SC Last administered on 09/18/18 17:28; Admin Dose 8,000 UNITS; Start 09/13/18 at 17:00 Guaifenesin/ Dextromethorphan (Robitussin Dm Liquid Cup) 5 ml Q4H PRN PO Cough Last administered on 09/18/18 05:01; Admin Dose 5 ML; Start 09/14/18 at 22:00 Vancomycin HCl (Vancomycin Oral Syringe) 125 mg Q6 PO Last administered on 2/22/19at 12:04; Admin Dose 125 MG; Start 09/15/18 at 12:00 Ferric Sodium Gluconate Complex 125 mg/Sodium Chloride 110 ml @ 110 mls/hr DAILY@1300 IVPB Last administered on 09/19/18at 12:05; Admin Dose 110 MLS/HR; Start 09/15/18 at 13:00; Stop 09/19/18 at 13:59 Midodrine (Proamatine) 10 mg TID@09,13,17 PO Last administered on 09/19/18at 12:08; Admin Dose 10 MG; Start 09/17/18 at 13:00 Famotidine (Pepcid) 40 mg HS GTB ; Start 09/19/18 at 21:00 PETRA DELA CRUZ Sep 19, 2018 12:17
--- NOTE | 2018-09-19 15:12 | CONS ---
Consult Date/Type/Reason Admit Date/Time Sep 12, 2018 at 12:05 Initial Consult Date 09/13/18 Type of Consult Pulmonary Requesting Provider: RUBÉN BENITO MD Date/Time of Note DATE: 09/19/18 TIME: 15:11 Subjective Remains stable, no resp distress. Objective Vital Signs Date Temp Pulse Resp B/P (MAP) Pulse Ox O2 O2 Flow FiO2 Time Delivery Rate 09/19/18 60 24 100 35 13:21 09/19/18 98.0 103/81 Mechanical 12:00 (88) Ventilator Trach Collar Intake and Output 09/18/18 09/18/18 09/19/18 1515:00 23:00 07:00 IntakeIntake Total 900 ml 900 ml OutputOutput Total 2200 ml 600 ml BalanceBalance -2200 ml 900 ml 300 ml Exam PHYSICAL EXAMINATION: GENERAL: Elderly-appearing gentleman on mechanical ventilation. He appears comfortable at rest, no acute distress. VITAL SIGNS: NECK: Trach site clean and intact. CARDIAC: S1, S2, no added sounds or murmurs. CHEST: Diminished air entry bilaterally. ABDOMEN: Soft, nontender. No guarding or rebound. EXTREMITIES: No cyanosis, clubbing or edema. NEUROLOGIC: Generalized weakness. Vent Setting Ventilator Support Mode: AC Fraction of Inspired Oxygen pe: 35 Positive End Expiratory Pressu: 5.0 Results/Medications Result Diagram: 09/19/18 0550 09/19/18 0550 Results 24 hrs Laboratory Tests Test 09/19/18 05:50 White Blood Count 10.0 # Red Blood Count 2.09 L Hemoglobin 7.4 L Hematocrit 21.7 L Mean Corpuscular Volume 103.8 H Mean Corpuscular Hemoglobin 35.4 H Mean Corpuscular Hemoglobin Concent 34.1 Red Cell Distribution Width 25.7 H Platelet Count 58 L Mean Platelet Volume Immature Granulocytes % 9.100 H Neutrophils % Segmented Neutrophils % (Manual) 43 Band Neutrophils % (Manual) 37 H Lymphocytes % Lymphocytes % (Manual) 9 L Monocytes % Monocytes % (Manual) 2 Eosinophils % Eosinophils % (Manual) 1 Basophils % Metamyelocytes % (manual) 1 H Myelocytes % (Manual) 6 H Promyelocytes % (Manual) 1 H Nucleated Red Blood Cells % 6 H Immature Granulocytes # 0.910 H Neutrophils # Neutrophils # (Manual) 4.7 Band Neutrophils # 3.7 H Lymphocytes (Manual) 0.9 Lymphocytes # Monocytes # Monocytes # (Manual) 0.2 L Eosinophils # Basophils # Metamyelocytes # 0.1 H Myelocytes # 0.6 H Promyelocytes # 0.1 H Nucleated Red Blood Cells # Platelet Estimate SIG DECREASED Giant Platelets 2 H Polychromasia 1+ Anisocytosis 2+ Macrocytosis 1+ Spherocytes 1+ Sodium Level 135 Potassium Level 3.0 L Chloride Level 101 Carbon Dioxide Level 22 Anion Gap 12 Blood Urea Nitrogen 80 H Creatinine 1.82 H Est Glomerular Filtrat Rate mL/min Glucose Level 98 Calcium Level 7.9 L Medications Current Medications Albuterol/ Ipratropium (Duoneb) 3 ml Q4H RESP THERAPY PRN HHN SHORTNESS OF BREATH Last administered on 09/14/18 21:38; Admin Dose 3 ML; Start 09/12/18 at 20:30 Ascorbic Acid (Vitamin C) 250 mg DAILY GTB Last administered on 09/19/18 09:08; Admin Dose 250 MG; Start 09/13/18 at 09:00 Collagenase (Santyl) 1 applic BID TOP Last administered on 09/19/18 09:07; Admin Dose 1 APPLIC; Start 09/13/18 at 09:00 Escitalopram Oxalate (Lexapro) 10 mg DAILY GTB Last administered on 09/19/18 09:08; Admin Dose 10 MG; Start 09/13/18 at 09:00 Finasteride (Proscar) 5 mg DAILY GTB Last administered on 09/19/18 09:08; Admin Dose 5 MG; Start 09/13/18 at 09:00 Acetaminophen/ Hydrocodone Bitart ([place] (5/325)) 1 tab Q6H PRN PO MODERATE PAIN LEVEL 4-6 Last administered on 09/16/18 18:51; Admin Dose 1 TAB; Start at 21:30 Lorazepam (Ativan) 0.5 mg Q6H PRN GTB ANXIETY Last administered on 09/19/18 03:00; Admin Dose 0.5 MG; Start 09/12/18 at 21:30 Multivit/Ca Carb/ B Cmplx/FA/Prenat (Ofe-Mine) 1 tab DAILY GTB Last administered on 09/19/18 09:08; Admin Dose 1 TAB; Start 09/13/18 at 09:00 Ondansetron HCl (Zofran Tab) 4 mg Q6H PRN GTB NAUSEA AND/OR VOMITING; Start 09/12/18 at 21:30 Zinc Oxide (Zinc Oxide Oint) 1 applic DAILY TOP Last administered on 09/19/18 09:07; Admin Dose 1 APPLIC; Start 09/13/18 at 09:00 Heparin Sodium (Porcine) (Heparin (1000 Units/ml)) 4,000 unit AFTER DIALYSIS CATHETER Last administered on 09/18/18 13:43; Admin Dose 4,000 UNIT; Start 09/13/18 at 16:30 Albumin Human 100 ml @ 100 mls/hr WITH DIALYSIS PRN IV SBP <90 DURING DIALYSIS Last administered on 09/14/18 08:36; Admin Dose 100 MLS/HR; Start 09/13/18 at 16:30 Sodium Chloride (NS) -To prime the dialy... DIRECTED FOR HD PRN IV HD; Start 09/13/18 at 16:30 Epoetin Tim (Epogen (Esrd)) 8,000 units TuThSa@17 SC Last administered on 09/18/18at 17:28; Admin Dose 8,000 UNITS; Start 09/13/18 at 17:00 Guaifenesin/ Dextromethorphan (Robitussin Dm Liquid Cup) 5 ml Q4H PRN PO Cough Last administered on 09/18/18 05:01; Admin Dose 5 ML; Start 09/14/18 at 22:00 Vancomycin HCl (Vancomycin Oral Syringe) 125 mg Q6 PO Last administered on 09/19/18 12:04; Admin Dose 125 MG; Start 09/15/18 at 12:00 Midodrine (Proamatine) 10 mg TID@09,13,17 PO Last administered on 09/19/18 12:08; Admin Dose 10 MG; Start 09/17/18 at 13:00 Famotidine (Pepcid) 40 mg HS GTB ; Start 09/19/18 at 21:00 Assessment/Plan Hospital Course (Demo Recall) All IMPRESSION 1. Recent urinary tract infection. 2. Significant anemia with a history of gastrointestinal bleeding. 3. Recurrent pneumonias with tracheostomy. 4. End-stage renal failure on hemodialysis. Plan: 1. Continued broad spectrum antibiotics. 2. Transfusion of packed red blood cells as needed. 3. Gastrointestinal recs 4. Iron replacement. 5. Deep venous thrombosis and GI prophylaxis. Overall prognosis guarded consider addressing CODE STATUS. SPENSER RICO MD, [facility] Sep 19, 2018 15:12
--- NOTE | 2018-09-19 17:37 | CONS ---
Assessment/Plan Assessment/Plan Hospital Course (Demo Recall) ID PROGRESS NOTE CURRENT ABX: DAY # => Flagyl IV #5 + Vanco liq GT #5 s/p Ertapenem #5 24H INTERVAL SUMMARY * CLINICALLY NO CHANGES -- NO FEVERS, VSS -- s/p HD yesterday -- patient is sleeping on the Vent without distress * Patient is frail 83 yo M with chronic debility, generalized weakness, appears frail, opens eyes to verbal otherwise appears encephalopathic. Chronic * 09/14/18 CXR Mildly increased interstitial edema suggesting cardiopulmonary congestion. Small left pleural effusion increased. MICRO * 09/13/18 (+)C.DIFF * 09/12/18 (-) MRSA Nares PHYSICAL EXAMINATION: GENERAL: Afebrile, VSS, encephalopathic HEENT: AT, NC, anicteric, left nare pressure ulcer w/eschar NECK: Grossly normal (+)Trach secure to Vent CHEST: Equal chest rise bilaterally = crackles * Left chest PermCath in place, no erythema at insert site HEART: Pulse RRR ABDOMEN: Soft / ND, peg EXTREMITIES: Warm, bilateral hand edema with right hand ecchymosis from lab draw vs PIV, BLEXT edema SKIN: No rash, no diaphoresis ID ASSESSMENT 83 yo M admit with: 1. Recent urinary tract infection -on Ertapenem 2. Acute C.Diff colitis w/rectocele 3. Significant anemia with a history of gastrointestinal bleeding- no active bleeding * Hx of Erosive gastritis and also AV malformation. 4. Recurrent pneumonias with respiratory failure ->(+) tracheostomy. * Hx of Enterococcus trach site 5. End-stage renal failure on hemodialysis. 6. Pacer - with good function, 100% paced now. 7. CAD - hx of open heart surgery 8. CHF w/Abnormal electrocardiogram * 09/14/18 CXR Mildly increased interstitial edema suggesting cardiopulmonary congestion. Small left pleural effusion increased. 9. Hypertension, controlled 10 .End-stage renal disease on hemodialysis 11. Diabetes mellitus- on meds (-)MRSA Nares Screen ABX ALLERGIES: KNDA INVASIVES: PermCATH (08/14/18), Trach, Peg CURRENT ABX: DAY # => Flagyl IV #5+ Vanco liq GT #5 s/p Ertapenem #5 ID RECOMMENDATIONS/PLAN: Continue ABX Flagy + Vanco Liq for C.Diff -- at least 10 day course -- He may need longer if this is a recurrent C.Diff infection, incomplete database . Consultation Date/Type/Reason Admit Date/Time Sep 12, 2018 at 12:05 Initial Consult Date 09/13/18 Requesting Provider: RUBÉN BENITO MD Date/Time of Note DATE: 09/19/18 TIME: 17:35 Exam/Review of Systems Exam Vitals Vital Signs Date Temp Pulse Resp B/P (MAP) Pulse Ox O2 O2 Flow FiO2 Time Delivery Rate 09/19/18 60 20 100 35 17:02 09/19/18 98.0 121/58 Mechanical 15:12 (79) Ventilator Trach Collar Intake and Output 09/18/18 09/18/18 09/19/18 1515:00 23:00 07:00 IntakeIntake Total 900 ml 900 ml OutputOutput Total 2200 ml 600 ml BalanceBalance -2200 ml 900 ml 300 ml Results Result Diagram: 09/19/18 0550 09/19/18 0550 Results 24hrs Laboratory Tests Test 09/19/18 05:50 White Blood Count 10.0 # Red Blood Count 2.09 L Hemoglobin 7.4 L Hematocrit 21.7 L Mean Corpuscular Volume 103.8 H Mean Corpuscular Hemoglobin 35.4 H Mean Corpuscular Hemoglobin Concent 34.1 Red Cell Distribution Width 25.7 H Platelet Count 58 L Mean Platelet Volume Immature Granulocytes % 9.100 H Neutrophils % Segmented Neutrophils % (Manual) 43 Band Neutrophils % (Manual) 37 H Lymphocytes % Lymphocytes % (Manual) 9 L Monocytes % Monocytes % (Manual) 2 Eosinophils % Eosinophils % (Manual) 1 Basophils % Metamyelocytes % (manual) 1 H Myelocytes % (Manual) 6 H Promyelocytes % (Manual) 1 H Nucleated Red Blood Cells % 6 H Immature Granulocytes # 0.910 H Neutrophils # Neutrophils # (Manual) 4.7 Band Neutrophils # 3.7 H Lymphocytes (Manual) 0.9 Lymphocytes # Monocytes # Monocytes # (Manual) 0.2 L Eosinophils # Basophils # Metamyelocytes # 0.1 H Myelocytes # 0.6 H Promyelocytes # 0.1 H Nucleated Red Blood Cells # Platelet Estimate SIG DECREASED Giant Platelets 2 H Polychromasia 1+ Anisocytosis 2+ Macrocytosis 1+ Spherocytes 1+ Sodium Level 135 Potassium Level 3.0 L Chloride Level 101 Carbon Dioxide Level 22 Anion Gap 12 Blood Urea Nitrogen 80 H Creatinine 1.82 H Est Glomerular Filtrat Rate mL/min Glucose Level 98 Calcium Level 7.9 L Medications Medication Current Medications Albuterol/ Ipratropium (Duoneb) 3 ml Q4H RESP THERAPY PRN HHN SHORTNESS OF BREATH Last administered on 09/14/18 21:38; Admin Dose 3 ML; Start 09/12/18 at 20:30 Ascorbic Acid (Vitamin C) 250 mg DAILY GTB Last administered on 09/19/18 09:08; Admin Dose 250 MG; Start 09/13/18 at 09:00 Collagenase (Santyl) 1 applic BID TOP Last administered on 09/19/18 09:07; Admin Dose 1 APPLIC; Start 09/13/18 at 09:00 Escitalopram Oxalate (Lexapro) 10 mg DAILY GTB Last administered on 09/19/18 09:08; Admin Dose 10 MG; Start 09/13/18 at 09:00 Finasteride (Proscar) 5 mg DAILY GTB Last administered on 09/19/18 09:08; Admin Dose 5 MG; Start 09/13/18 at 09:00 Acetaminophen/ Hydrocodone Bitart ([place] (5/325)) 1 tab Q6H PRN PO MODERATE PAIN LEVEL 4-6 Last administered on 09/16/18 18:51; Admin Dose 1 TAB; Start 09/12/18 at 21:30 Lorazepam (Ativan) 0.5 mg Q6H PRN GTB ANXIETY Last administered on 09/19/18 03:00; Admin Dose 0.5 MG; Start 09/12/18 at 21:30 Multivit/Ca Carb/ B Cmplx/FA/Prenat (Ofe-Mine) 1 tab DAILY GTB Last administered on 09/19/18 09:08; Admin Dose 1 TAB; Start 09/13/18 at 09:00 Ondansetron HCl (Zofran Tab) 4 mg Q6H PRN GTB NAUSEA AND/OR VOMITING; Start 09/12/18 at 21:30 Zinc Oxide (Zinc Oxide Oint) 1 applic DAILY TOP Last administered on 09/19/18 09:07; Admin Dose 1 APPLIC; Start 09/13/18 at 09:00 Heparin Sodium (Porcine) (Heparin (1000 Units/ml)) 4,000 unit AFTER DIALYSIS CATHETER Last administered on 09/18/18 13:43; Admin Dose 4,000 UNIT; Start 09/13/18 at 16:30 Albumin Human 100 ml @ 100 mls/hr WITH DIALYSIS PRN IV SBP <90 DURING DIALYSIS Last administered on 09/14/18 08:36; Admin Dose 100 MLS/HR; Start 09/13/18 at 16:30 Sodium Chloride (NS) -To prime the dialy... DIRECTED FOR HD PRN IV HD; Start 09/13/18 at 16:30 Epoetin Tim (Epogen (Esrd)) 8,000 units TuThSa@17 SC Last administered on 09/18/18 17:28; Admin Dose 8,000 UNITS; Start 09/13/18 at 17:00 Guaifenesin/ Dextromethorphan (Robitussin Dm Liquid Cup) 5 ml Q4H PRN PO Cough Last administered on 09/18/18 05:01; Admin Dose 5 ML; Start 09/14/18 at 22:00 Vancomycin HCl (Vancomycin Oral Syringe) 125 mg Q6 PO Last administered on 09/19/18 12:04; Admin Dose 125 MG; Start 09/15/18 at 12:00 Midodrine (Proamatine) 10 mg TID@,,17 PO Last administered on 09/19/18 12:08; Admin Dose 10 MG; Start 09/17/18 at 13:00 Famotidine (Pepcid) 40 mg HS GTB ; Start 09/19/18 at 21:00 ANNE-MARIE LUNSFORD [employer] Sep 19, 2018 17:37
[2018-09-19] MEDS: FAMOTIDINE 20 MG TAB GTB SCH (21:36)
[2018-09-20] VITALS (38 sets, daily range): BP systolic 81–144; BP diastolic 46–64; PULSE 60–79; RESP 14–27
[2018-09-20] MEDS: VANCOMYCIN HCL 250 MG/5ML POSYG PO SCH ×4 (00:10→17:21)
[2018-09-20] MEDS ORDERED: POTASSIUM CHLORIDE (SR) 20 MEQ TAB PO ONE (06:30)
[2018-09-20] MEDS: ESCITALOPRAM 10 MG TAB GTB SCH (09:09)
[2018-09-20] MEDS: ASCORBIC ACID 250 MG TAB GTB SCH (09:09)
[2018-09-20] MEDS: COLLAGENASE 5 GM (UD JAR) TOP SCH ×2 (09:09→21:59)
[2018-09-20] MEDS: MULTIVIT/CA CARB/B CMPLX/FA TAB GTB SCH (09:09)
[2018-09-20] MEDS: MIDODRINE 5 MG TAB PO SCH ×3 (09:09→16:19)
[2018-09-20] MEDS: FINASTERIDE 5 MG TAB GTB SCH (09:09)
[2018-09-20] MEDS: ZINC OXIDE 20% 30 GM OINT TOP SCH (09:09)
[2018-09-20] MEDS: BALSAM PERU/CASTOR OIL 60 GM TUBE TOP SCH (09:10)
--- NOTE | 2018-09-20 10:52 | CONS ---
Assessment/Plan Assessment/Plan Assessment/Plan (Daily) 1. Pancytopenia. At this point, no evidence of active GI bleeding. Anemia of chronic disease -FOB negative, Iron panel noted. 2. Coronary artery disease status post PCI. 3. Respiratory failure. 4. Benign prostatic hypertrophy. 5. Depression. 6. Sacral decubitus ulcer. 7. End-stage renal disease on dialysis. 8. Thrombocytopenia platelet count is 40,000 in stable -per heme onc: keep platelets above 20,000, hgb above 7.0 -feel pancytopenia is due to multiple underlying disorders 9. C diff in stool PLAN: FOB Start vanco PO 125mg QID x 10 days We will monitor closely for evidence of GI bleeding. Per heme onc keep plt above 20,000 and hgb above 7.0. Continue with pepcid Procrit DC Colace Consultation Date/Type/Reason Admit Date/Time Sep 12, 2018 at 12:05 Initial Consult Date 09/13/18 Requesting Provider: RUBÉN BENITO MD Date/Time of Note DATE: 09/20/18 TIME: 10:51 24 HR Interval Summary Subjective hx not possible: pt critical status Exam/Review of Systems Exam Vitals Vital Signs Date Temp Pulse Resp B/P (MAP) Pulse Ox O2 O2 Flow FiO2 Time Delivery Rate 09/20/18 60 21 100 35 09:15 09/20/18 98.5 115/60 07:57 (78) 09/19/18 Mechanical 15:12 Ventilator Trach Collar Intake and Output 09/19/18 09/19/18 09/20/18 1515:00 23:00 07:00 IntakeIntake Total 100 ml 700 ml 820 ml OutputOutput Total 300 ml BalanceBalance 100 ml 700 ml 520 ml Neck: supple, non-tender Respiratory: clear to auscultation, normal air movement Musculoskeletal: nl extremities to inspection, nl gait and stance Extremities: normal pulses Results Result Diagram: 09/20/18 0506 09/20/18 0506 Results 24hrs Laboratory Tests Test 09/20/18 05:06 White Blood Count 9.8 Red Blood Count 2.24 L Hemoglobin 7.5 L Hematocrit 22.7 L Mean Corpuscular Volume 101.3 H Mean Corpuscular Hemoglobin 33.5 H Mean Corpuscular Hemoglobin Concent 33.0 Red Cell Distribution Width 25.2 H Platelet Count 71 #L Mean Platelet Volume 14.8 H Immature Granulocytes % 7.400 H Neutrophils % Segmented Neutrophils % (Manual) 53 Band Neutrophils % (Manual) 19 H Lymphocytes % (Manual) 8 L Monocytes % (Manual) 13 H Eosinophils % Metamyelocytes % (manual) 3 H Myelocytes % (Manual) 3 H Promyelocytes % (Manual) 1 H Nucleated Red Blood Cells % 4 H Immature Granulocytes # 0.730 H Neutrophils # Neutrophils # (Manual) 5.4 Band Neutrophils # 1.8 H Lymphocytes (Manual) 0.7 L Monocytes # (Manual) 1.2 H Eosinophils # Metamyelocytes # 0.2 H Myelocytes # 0.2 H Promyelocytes # 0.0 Platelet Estimate DECREASED Giant Platelets 3 H Polychromasia 3+ Poikilocytosis 1+ Anisocytosis 2+ Macrocytosis 1+ Tear Drop Cells 1+ Ovalocytes 1+ Sodium Level 132 L Potassium Level 2.9 *L Chloride Level 101 Carbon Dioxide Level 19 L Anion Gap 12 Blood Urea Nitrogen 93 H Creatinine 2.11 H Est Glomerular Filtrat Rate mL/min Glucose Level 136 Calcium Level 8.0 L Medications Medication Current Medications Albuterol/ Ipratropium (Duoneb) 3 ml Q4H RESP THERAPY PRN HHN SHORTNESS OF BREATH Last administered on 09/14/18 21:38; Admin Dose 3 ML; Start 09/12/18 at 20:30 Ascorbic Acid (Vitamin C) 250 mg DAILY GTB Last administered on 09/20/18 09:09; Admin Dose 250 MG; Start 09/13/18 at 09:00 Collagenase (Santyl) 1 applic BID TOP Last administered on 09/20/18 09:09; Admin Dose 1 APPLIC; Start 09/13/18 at 09:00 Escitalopram Oxalate (Lexapro) 10 mg DAILY GTB Last administered on 09/20/18 09:09; Admin Dose 10 MG; Start 09/13/18 at 09:00 Finasteride (Proscar) 5 mg DAILY GTB Last administered on 09/20/18 09:09; Admin Dose 5 MG; Start 09/13/18 at 09:00 Acetaminophen/ Hydrocodone Bitart ([place] (5/325)) 1 tab Q6H PRN PO MODERATE PAIN LEVEL 4-6 Last administered on 09/16/18 18:51; Admin Dose 1 TAB; Start 09/12/18 at 21:30 Lorazepam (Ativan) 0.5 mg Q6H PRN GTB ANXIETY Last administered on 09/19/18 21:36; Admin Dose 0.5 MG; Start 09/12/18 at 21:30 Multivit/Ca Carb/ B Cmplx/FA/Prenat (Ofe-Mine) 1 tab DAILY GTB Last administered on 09/20/18 09:09; Admin Dose 1 TAB; Start 09/13/18 at 09:00 Ondansetron HCl (Zofran Tab) 4 mg Q6H PRN GTB NAUSEA AND/OR VOMITING; Start 09/12/18 at 21:30 Zinc Oxide (Zinc Oxide Oint) 1 applic DAILY TOP Last administered on 09/20/18 09:09; Admin Dose 1 APPLIC; Start 09/13/18 at 09:00 Heparin Sodium (Porcine) (Heparin (1000 Units/ml)) 4,000 unit AFTER DIALYSIS CATHETER Last administered on 09/18/18 13:43; Admin Dose 4,000 UNIT; Start 09/13/18 at 16:30 Albumin Human 100 ml @ 100 mls/hr WITH DIALYSIS PRN IV SBP <90 DURING DIALYSIS Last administered on 09/14/18 08:36; Admin Dose 100 MLS/HR; Start 09/13/18 at 16:30 Sodium Chloride (NS) -To prime the dialy... DIRECTED FOR HD PRN IV HD; Start 09/13/18 at 16:30 Epoetin Tim (Epogen (Esrd)) 8,000 units TuThSa@17 SC Last administered on 09/18/18 17:28; Admin Dose 8,000 UNITS; Start 09/13/18 at 17:00 Guaifenesin/ Dextromethorphan (Robitussin Dm Liquid Cup) 5 ml Q4H PRN PO Cough Last administered on 09/18/18 05:01; Admin Dose 5 ML; Start 09/14/18 at 22:00 Vancomycin HCl (Vancomycin Oral Syringe) 125 mg Q6 PO Last administered on 09/20/18 05:55; Admin Dose 125 MG; Start 09/15/18 at 12:00 Midodrine (Proamatine) 10 mg TID@,13,17 PO Last administered on 2/23/19at 09:09; Admin Dose 10 MG; Start 09/17/18 at 13:00 Famotidine (Pepcid) 40 mg HS GTB Last administered on 09/19/18at 21:36; Admin Dose 40 MG; Start 09/19/18 at 21:00 JED SALAS MD Sep 20, 2018 10:52
--- NOTE | 2018-09-20 11:17 | PN ---
Date/Time of Note Date/Time of Note DATE: 09/20/18 TIME: 11:16 Assessment/Plan VTE Prophylaxis Risk score (from [facility] [place]0 risk: 5 SCD applied (from [facility] [place]): No SCD contraindicated: other Pharmacological prophylaxis: LMWH Lines/Catheters IV Catheter Type (from [facility]): Saline Lock Assessment/Plan Hospital Course - hYPOKALEMIA -C. difficile colitis, continue Vanco via G-tube. Dr. Rebolledo is following in infection disease consultation. -Pancytopenia, status post blood transfusion. Dr. Coleman is following him here in hematology consultation. Dr. Hedrick is following in gastroenterology co nsultation. 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 Continue Prevacid. -Coronary artery disease status post PCI. Patient with pancytopenia with history of recurrent gastrointestinal bleed, unfortunately cannot be giving aspirin or Plavix. -Permanent pacemaker -Ventilator dependent respiratory failure. Dr. Mendoza is following in pulmonology consultation. -Hemodialysis dependent end-stage renal disease. Continue hemodialysis. Dr. Mari is following in nephrology consultation. -Dysphagia with G-tube -Sacral decubitus. Continue local wound care. -Depression. Continue Lexapro. -History of prostate cancer Result Diagram: 09/20/18 0506 09/20/18 0506 Results 24hrs Laboratory Tests Test 09/20/18 05:05 09/20/18 05:06 Hepatitis B Surface Antigen NEGATIVE White Blood Count 9.8 Red Blood Count 2.24 L Hemoglobin 7.5 L Hematocrit 22.7 L Mean Corpuscular Volume 101.3 H Mean Corpuscular Hemoglobin 33.5 H Mean Corpuscular Hemoglobin Concent 33.0 Red Cell Distribution Width 25.2 H Platelet Count 71 #L Mean Platelet Volume 14.8 H Immature Granulocytes % 7.400 H Neutrophils % Segmented Neutrophils % (Manual) 53 Band Neutrophils % (Manual) 19 H Lymphocytes % (Manual) 8 L Monocytes % (Manual) 13 H Eosinophils % Metamyelocytes % (manual) 3 H Myelocytes % (Manual) 3 H Promyelocytes % (Manual) 1 H Nucleated Red Blood Cells % 4 H Immature Granulocytes # 0.730 H Neutrophils # Neutrophils # (Manual) 5.4 Band Neutrophils # 1.8 H Lymphocytes (Manual) 0.7 L Monocytes # (Manual) 1.2 H Eosinophils # Metamyelocytes # 0.2 H Myelocytes # 0.2 H Promyelocytes # 0.0 Platelet Estimate DECREASED Giant Platelets 3 H Polychromasia 3+ Poikilocytosis 1+ Anisocytosis 2+ Macrocytosis 1+ Tear Drop Cells 1+ Ovalocytes 1+ Sodium Level 132 L Potassium Level 2.9 *L Chloride Level 101 Carbon Dioxide Level 19 L Anion Gap 12 Blood Urea Nitrogen 93 H Creatinine 2.11 H Est Glomerular Filtrat Rate mL/min Glucose Level 136 Calcium Level 8.0 L Subjective 24 Hr Interval Summary Free Text/Dictation Patient resting, appears comfortable Exam/Review of Systems Exam Vitals Vital Signs Date Temp Pulse Resp B/P (MAP) Pulse Ox O2 O2 Flow FiO2 Time Delivery Rate 09/20/18 60 20 100 35 11:02 09/20/18 98.5 115/60 07:57 (78) 09/19/18 Mechanical 15:12 Ventilator Trach Collar Intake and Output 09/19/18 09/19/18 09/20/18 1515:00 23:00 07:00 IntakeIntake Total 100 ml 700 ml 820 ml OutputOutput Total 300 ml BalanceBalance 100 ml 700 ml 520 ml Constitutional: well developed Head: normocephalic, atraumatic Neck: supple Respiratory: diminished breath sounds Cardiovascular: regular rate and rhythm Gastrointestinal: soft, non-tender Extremities: normal pulses Results Results 24hrs Laboratory Tests Test 09/20/18 05:05 09/20/18 05:06 Hepatitis B Surface Antigen NEGATIVE White Blood Count 9.8 Red Blood Count 2.24 L Hemoglobin 7.5 L Hematocrit 22.7 L Mean Corpuscular Volume 101.3 H Mean Corpuscular Hemoglobin 33.5 H Mean Corpuscular Hemoglobin Concent 33.0 Red Cell Distribution Width 25.2 H Platelet Count 71 #L Mean Platelet Volume 14.8 H Immature Granulocytes % 7.400 H Neutrophils % Segmented Neutrophils % (Manual) 53 Band Neutrophils % (Manual) 19 H Lymphocytes % (Manual) 8 L Monocytes % (Manual) 13 H Eosinophils % Metamyelocytes % (manual) 3 H Myelocytes % (Manual) 3 H Promyelocytes % (Manual) 1 H Nucleated Red Blood Cells % 4 H Immature Granulocytes # 0.730 H Neutrophils # Neutrophils # (Manual) 5.4 Band Neutrophils # 1.8 H Lymphocytes (Manual) 0.7 L Monocytes # (Manual) 1.2 H Eosinophils # Metamyelocytes # 0.2 H Myelocytes # 0.2 H Promyelocytes # 0.0 Platelet Estimate DECREASED Giant Platelets 3 H Polychromasia 3+ Poikilocytosis 1+ Anisocytosis 2+ Macrocytosis 1+ Tear Drop Cells 1+ Ovalocytes 1+ Sodium Level 132 L Potassium Level 2.9 *L Chloride Level 101 Carbon Dioxide Level 19 L Anion Gap 12 Blood Urea Nitrogen 93 H Creatinine 2.11 H Est Glomerular Filtrat Rate mL/min Glucose Level 136 Calcium Level 8.0 L Medications Medication Current Medications Albuterol/ Ipratropium (Duoneb) 3 ml Q4H RESP THERAPY PRN HHN SHORTNESS OF BREATH Last administered on 09/14/18 21:38; Admin Dose 3 ML; Start 09/12/18 at 20:30 Ascorbic Acid (Vitamin C) 250 mg DAILY GTB Last administered on 09/20/18 09:09; Admin Dose 250 MG; Start 09/13/18 at 09:00 Collagenase (Santyl) 1 applic BID TOP Last administered on 09/20/18 09:09; Admin Dose 1 APPLIC; Start 09/13/18 at 09:00 Escitalopram Oxalate (Lexapro) 10 mg DAILY GTB Last administered on 09/20/18 09:09; Admin Dose 10 MG; Start 09/13/18 at 09:00 Finasteride (Proscar) 5 mg DAILY GTB Last administered on 09/20/18 09:09; Admin Dose 5 MG; Start 09/13/18 at 09:00 Acetaminophen/ Hydrocodone Bitart ([place] (5/325)) 1 tab Q6H PRN PO MODERATE PAIN LEVEL 4-6 Last administered on 09/16/18 18:51; Admin Dose 1 TAB; Start 09/12/18 at 21:30 Lorazepam (Ativan) 0.5 mg Q6H PRN GTB ANXIETY Last administered on 09/19/18 21:36; Admin Dose 0.5 MG; Start 09/12/18 at 21:30 Multivit/Ca Carb/ B Cmplx/FA/Prenat (Ofe-Mine) 1 tab DAILY GTB Last admini stered on 09/20/18 09:09; Admin Dose 1 TAB; Start 09/13/18 at 09:00 Ondansetron HCl (Zofran Tab) 4 mg Q6H PRN GTB NAUSEA AND/OR VOMITING; Start 09/12/18 at 21:30 Zinc Oxide (Zinc Oxide Oint) 1 applic DAILY TOP Last administered on 09/20/18 09:09; Admin Dose 1 APPLIC; Start 09/13/18 at 09:00 Heparin Sodium (Porcine) (Heparin (1000 Units/ml)) 4,000 unit AFTER DIALYSIS CATHETER Last administered on 09/18/18 13:43; Admin Dose 4,000 UNIT; Start 09/13/18 at 16:30 Albumin Human 100 ml @ 100 mls/hr WITH DIALYSIS PRN IV SBP <90 DURING DIALYSIS Last administered on 09/14/18 08:36; Admin Dose 100 MLS/HR; Start 09/13/18 at 16:30 Sodium Chloride (NS) -To prime the dialy... DIRECTED FOR HD PRN IV HD; Start 09/13/18 at 16:30 Epoetin Tim (Epogen (Esrd)) 8,000 units TuThSa@17 SC Last administered on 09/18/18 17:28; Admin Dose 8,000 UNITS; Start 09/13/18 at 17:00 Guaifenesin/ Dextromethorphan (Robitussin Dm Liquid Cup) 5 ml Q4H PRN PO Cough Last administered on 09/18/18 05:01; Admin Dose 5 ML; Start 09/14/18 at 22:00 Vancomycin HCl (Vancomycin Oral Syringe) 125 mg Q6 PO Last administered on 09/20/18 05:55; Admin Dose 125 MG; Start 09/15/18 at 12:00 Midodrine (Proamatine) 10 mg TID@,,17 PO Last administered on 09/20/18 09:09; Admin Dose 10 MG; Start 09/17/18 at 13:00 Famotidine (Pepcid) 40 mg HS GTB Last administered on 09/19/18 21:36; Admin Dose 40 MG; Start 09/19/18 at 21:00 HARLEY STARR Sep 20, 2018 11:17
--- NOTE | 2018-09-20 11:44 | CONS ---
Assessment/Plan Assessment/Plan Hospital Course (Demo Recall) IMP: 1.BRadycardia-possible miscounting by tele monitor- no recurrent jey by tele 2.PPM-v paced at 60. No signs of dysfunction 3.c diff 4.ESRD on HD 5. Resp failure-chronic s/p trach 6. Hypotension-on midodrine with improved BP Recc: -Tele -serial ecg's -Follow rhythm/rate closely -Continue flagyl/vanc -midodrine BP support as necessary -HD for volume removal which is ongoing now -albumin infusion Consultation Date/Type/Reason Admit Date/Time Sep 12, 2018 at 12:05 Initial Consult Date 09/13/18 Type of Consult Cardiology Reason for Consultation Bradycardia Requesting Provider: RUBÉN BENITO MD Date/Time of Note DATE: 09/20/18 TIME: 11:34 Exam/Review of Systems Vital Signs Vitals Vital Signs Date Temp Pulse Resp B/P (MAP) Pulse Ox O2 O2 Flow FiO2 Time Delivery Rate 09/20/18 97.8 79 18 93/48 (63) 97 11:24 09/20/18 35 11:02 09/19/18 Mechanical 15:12 Ventilator Trach Collar Intake and Output 09/19/18 09/19/18 09/20/18 1515:00 23:00 07:00 IntakeIntake Total 100 ml 700 ml 820 ml OutputOutput Total 300 ml BalanceBalance 100 ml 700 ml 520 ml Exam Exam Review of Systems: CONSTITUTIONAL: No fevers, chills. PULMONARY: No sob CARDIOVASCULAR: No chest pain/palpitations GASTROINTESTINAL: No nausea/vomiting. GENITOURINARY: No hematuria/dysuria. MUSCULOSKELETAL: No myagias/arthalgias. PSYCHIATRIC: The patient denies depression. NEUROLOGIC: No weakness Constitutional: alert Psych: no complaints Head: normocephalic ENMT: mucosa pink and moist Neck: supple, jvd (9 cm water) Respiratory: diminished breath sounds Cardiovascular: regular rate and rhythm Gastrointestinal: soft, non-tender Musculoskeletal: muscle weakness (generalized) Extremities: edema (none) Neurological: other (No focal deficits) Labs Result Diagram: 09/20/18 0506 09/20/18 0506 Results 24hrs Laboratory Tests Test 09/20/18 05:05 09/20/18 05:06 Hepatitis B Surface Antigen NEGATIVE White Blood Count 9.8 Red Blood Count 2.24 L Hemoglobin 7.5 L Hematocrit 22.7 L Mean Corpuscular Volume 101.3 H Mean Corpuscular Hemoglobin 33.5 H Mean Corpuscular Hemoglobin Concent 33.0 Red Cell Distribution Width 25.2 H Platelet Count 71 #L Mean Platelet Volume 14.8 H Immature Granulocytes % 7.400 H Neutrophils % Segmented Neutrophils % (Manual) 53 Band Neutrophils % (Manual) 19 H Lymphocytes % (Manual) 8 L Monocytes % (Manual) 13 H Eosinophils % Metamyelocytes % (manual) 3 H Myelocytes % (Manual) 3 H Promyelocytes % (Manual) 1 H Nucleated Red Blood Cells % 4 H Immature Granulocytes # 0.730 H Neutrophils # Neutrophils # (Manual) 5.4 Band Neutrophils # 1.8 H Lymphocytes (Manual) 0.7 L Monocytes # (Manual) 1.2 H Eosinophils # Metamyelocytes # 0.2 H Myelocytes # 0.2 H Promyelocytes # 0.0 Platelet Estimate DECREASED Giant Platelets 3 H Polychromasia 3+ Poikilocytosis 1+ Anisocytosis 2+ Macrocytosis 1+ Tear Drop Cells 1+ Ovalocytes 1+ Sodium Level 132 L Potassium Level 2.9 *L Chloride Level 101 Carbon Dioxide Level 19 L Anion Gap 12 Blood Urea Nitrogen 93 H Creatinine 2.11 H Est Glomerular Filtrat Rate mL/min Glucose Level 136 Calcium Level 8.0 L Medications Medications Current Medications Albuterol/ Ipratropium (Duoneb) 3 ml Q4H RESP THERAPY PRN HHN SHORTNESS OF BREATH Last administered on 09/14/18 21:38; Admin Dose 3 ML; Start 09/12/18 at 20:30 Ascorbic Acid (Vitamin C) 250 mg DAILY GTB Last administered on 09/20/18 09:09; Admin Dose 250 MG; Start 09/13/18 at 09:00 Collagenase (Santyl) 1 applic BID TOP Last administered on 09/20/18 09:09; Admin Dose 1 APPLIC; Start 09/13/18 at 09:00 Escitalopram Oxalate (Lexapro) 10 mg DAILY GTB Last administered on 09/20/18 09:09; Admin Dose 10 MG; Start 09/13/18 at 09:00 Finasteride (Proscar) 5 mg DAILY GTB Last administered on 09/20/18 09:09; Admin Dose 5 MG; Start 09/13/18 at 09:00 Acetaminophen/ Hydrocodone Bitart ([place] (5/325)) 1 tab Q6H PRN PO MODERATE PAIN LEVEL 4-6 Last administered on 09/16/18 18:51; Admin Dose 1 TAB; Start 09/12/18 at 21:30 Lorazepam (Ativan) 0.5 mg Q6H PRN GTB ANXIETY Last administered on 09/19/18 21:36; Admin Dose 0.5 MG; Start 09/12/18 at 21:30 Multivit/Ca Carb/ B Cmplx/FA/Prenat (Ofe-Mine) 1 tab DAILY GTB Last administered on 09/20/18 09:09; Admin Dose 1 TAB; Start 09/13/18 at 09:00 Ondansetron HCl (Zofran Tab) 4 mg Q6H PRN GTB NAUSEA AND/OR VOMITING; Start 09/12/18 at 21:30 Zinc Oxide (Zinc Oxide Oint) 1 applic DAILY TOP Last administered on 09/20/18 09:09; Admin Dose 1 APPLIC; Start 09/13/18 at 09:00 Heparin Sodium (Porcine) (Heparin (1000 Units/ml)) 4,000 unit AFTER DIALYSIS CATHETER Last administered on 09/18/18 13:43; Admin Dose 4,000 UNIT; Start 09/13/18 at 16:30 Albumin Human 100 ml @ 100 mls/hr WITH DIALYSIS PRN IV SBP <90 DURING DIALYSIS Last administered on 09/14/18 08:36; Admin Dose 100 MLS/HR; Start 09/13/18 at 16:30 Sodium Chloride (NS) -To prime the dialy... DIRECTED FOR HD PRN IV HD; Start 09/13/18 at 16:30 Epoetin Tim (Epogen (Esrd)) 8,000 units TuThSa@17 SC Last administered on 09/18/18 17:28; Admin Dose 8,000 UNITS; Start 09/13/18 at 17:00 Guaifenesin/ Dextromethorphan (Robitussin Dm Liquid Cup) 5 ml Q4H PRN PO Cough Last administered on 09/18/18 05:01; Admin Dose 5 ML; Start 09/14/18 at 22:00 Vancomycin HCl (Vancomycin Oral Syringe) 125 mg Q6 PO Last administered on 09/20/18at 05:55; Admin Dose 125 MG; Start 09/15/18 at 12:00 Midodrine (Proamatine) 10 mg TID@,,17 PO Last administered on 09/20/18at 09:09; Admin Dose 10 MG; Start 09/17/18 at 13:00 Famotidine (Pepcid) 40 mg HS GTB Last administered on 09/19/18at 21:36; Admin Dose 40 MG; Start 09/19/18 at 21:00 PETRA DELA CRUZ Sep 20, 2018 11:44
[2018-09-20] MEDS: ALBUMIN HUMAN 25% 100 ML IV PRN (11:50)
--- NOTE | 2018-09-20 11:52 | CONS ---
Consult Date/Type/Reason Admit Date/Time Sep 12, 2018 at 12:05 Initial Consult Date 09/13/18 Type of Consult Pulmonary Requesting Provider: RUBÉN BENITO MD Date/Time of Note DATE: 09/20/18 TIME: 11:52 Subjective Stable this morning no respiratory distress Objective Vital Signs Date Temp Pulse Resp B/P (MAP) Pulse Ox O2 O2 Flow FiO2 Time Delivery Rate 09/20/18 97.8 79 18 93/48 (63) 97 11:24 09/20/18 35 11:02 09/19/18 Mechanical 15:12 Ventilator Trach Collar Intake and Output 09/19/18 09/19/18 09/20/18 1515:00 23:00 07:00 IntakeIntake Total 100 ml 700 ml 820 ml OutputOutput Total 300 ml BalanceBalance 100 ml 700 ml 520 ml Exam PHYSICAL EXAMINATION: GENERAL: Elderly-appearing gentleman on mechanical ventilation. He appears comfortable at rest, no acute distress. VITAL SIGNS: NECK: Trach site clean and intact. CARDIAC: S1, S2, no added sounds or murmurs. CHEST: Diminished air entry bilaterally. ABDOMEN: Soft, nontender. No guarding or rebound. EXTREMITIES: No cyanosis, clubbing or edema. NEUROLOGIC: Generalized weakness. Vent Setting Ventilator Support Mode: AC Fraction of Inspired Oxygen pe: 35 Positive End Expiratory Pressu: 5.0 Results/Medications Result Diagram: 09/20/18 0506 09/20/18 0506 Results 24 hrs Laboratory Tests Test 09/20/18 05:05 09/20/18 05:06 Hepatitis B Surface Antigen NEGATIVE White Blood Count 9.8 Red Blood Count 2.24 L Hemoglobin 7.5 L Hematocrit 22.7 L Mean Corpuscular Volume 101.3 H Mean Corpuscular Hemoglobin 33.5 H Mean Corpuscular Hemoglobin Concent 33.0 Red Cell Distribution Width 25.2 H Platelet Count 71 #L Mean Platelet Volume 14.8 H Immature Granulocytes % 7.400 H Neutrophils % Segmented Neutrophils % (Manual) 53 Band Neutrophils % (Manual) 19 H Lymphocytes % (Manual) 8 L Monocytes % (Manual) 13 H Eosinophils % Metamyelocytes % (manual) 3 H Myelocytes % (Manual) 3 H Promyelocytes % (Manual) 1 H Nucleated Red Blood Cells % 4 H Immature Granulocytes # 0.730 H Neutrophils # Neutrophils # (Manual) 5.4 Band Neutrophils # 1.8 H Lymphocytes (Manual) 0.7 L Monocytes # (Manual) 1.2 H Eosinophils # Metamyelocytes # 0.2 H Myelocytes # 0.2 H Promyelocytes # 0.0 Platelet Estimate DECREASED Giant Platelets 3 H Polychromasia 3+ Poikilocytosis 1+ Anisocytosis 2+ Macrocytosis 1+ Tear Drop Cells 1+ Ovalocytes 1+ Sodium Level 132 L Potassium Level 2.9 *L Chloride Level 101 Carbon Dioxide Level 19 L Anion Gap 12 Blood Urea Nitrogen 93 H Creatinine 2.11 H Est Glomerular Filtrat Rate mL/min Glucose Level 136 Calcium Level 8.0 L Medications Current Medications Albuterol/ Ipratropium (Duoneb) 3 ml Q4H RESP THERAPY PRN HHN SHORTNESS OF BREATH Last administered on 09/14/18 21:38; Admin Dose 3 ML; Start 09/12/18 at 20:30 Ascorbic Acid (Vitamin C) 250 mg DAILY GTB Last administered on 09/20/18 09:09; Admin Dose 250 MG; Start 09/13/18 at 09:00 Collagenase (Santyl) 1 applic BID TOP Last administered on 09/20/18 09:09; Admin Dose 1 APPLIC; Start 09/13/18 at 09:00 Escitalopram Oxalate (Lexapro) 10 mg DAILY GTB Last administered on 09/20/18 09:09; Admin Dose 10 MG; Start 09/13/18 at 09:00 Finasteride (Proscar) 5 mg DAILY GTB Last administered on 09/20/18 09:09; Admin Dose 5 MG; Start 09/13/18 at 09:00 Acetaminophen/ Hydrocodone Bitart ([place] (5/325)) 1 tab Q6H PRN PO MODERATE PAIN LEVEL 4-6 Last administered on 09/16/18 18:51; Admin Dose 1 TAB; Start 09/12/18 at 21:30 Lorazepam (Ativan) 0.5 mg Q6H PRN GTB ANXIETY Last administered on 09/19/18 21:36; Admin Dose 0.5 MG; Start 09/12/18 at 21:30 Multivit/Ca Carb/ B Cmplx/FA/Prenat (Ofe-Mine) 1 tab DAILY GTB Last administered on 2/23/19at 09:09; Admin Dose 1 TAB; Start 09/13/18 at 09:00 Ondansetron HCl (Zofran Tab) 4 mg Q6H PRN GTB NAUSEA AND/OR VOMITING; Start 09/12/18 at 21:30 Zinc Oxide (Zinc Oxide Oint) 1 applic DAILY TOP Last administered on 09/20/18 09:09; Admin Dose 1 APPLIC; Start 09/13/18 at 09:00 Heparin Sodium (Porcine) (Heparin (1000 Units/ml)) 4,000 unit AFTER DIALYSIS CATHETER Last administered on 09/18/18 13:43; Admin Dose 4,000 UNIT; Start 09/13/18 at 16:30 Albumin Human 100 ml @ 100 mls/hr WITH DIALYSIS PRN IV SBP <90 DURING DIALYSIS Last administered on 09/20/18 11:50; Admin Dose 100 MLS/HR; Start 09/13/18 at 16:30 Sodium Chloride (NS) -To prime the dialy... DIRECTED FOR HD PRN IV HD; Start 09/13/18 at 16:30 Epoetin Tim (Epogen (Esrd)) 8,000 units TuThSa@17 SC Last administered on 09/18/18 17:28; Admin Dose 8,000 UNITS; Start 09/13/18 at 17:00 Guaifenesin/ Dextromethorphan (Robitussin Dm Liquid Cup) 5 ml Q4H PRN PO Cough Last administered on 09/18/18 05:01; Admin Dose 5 ML; Start 09/14/18 at 22:00 Vancomycin HCl (Vancomycin Oral Syringe) 125 mg Q6 PO Last administered on 09/20/18 05:55; Admin Dose 125 MG; Start 09/15/18 at 12:00 Midodrine (Proamatine) 10 mg TID@,13,17 PO Last administered on 09/20/18 09:09; Admin Dose 10 MG; Start 09/17/18 at 13:00 Famotidine (Pepcid) 40 mg HS GTB Last administered on 09/19/18 21:36; Admin Dose 40 MG; Start 09/19/18 at 21:00 Assessment/Plan Hospital Course (Demo Recall) All IMPRESSION 1. Recent urinary tract infection. 2. Significant anemia with a history of gastrointestinal bleeding. 3. Recurrent pneumonias with tracheostomy. 4. End-stage renal failure on hemodialysis. Plan: 1. Continued broad spectrum antibiotics. 2. Transfusion of packed red blood cells as needed. 3. Gastrointestinal recs 4. Iron replacement. 5. Deep venous thrombosis and GI prophylaxis. Overall prognosis guarded consider addressing CODE STATUS. SPENSER RICO MD, [facility] Sep 20, 2018 11:52
[2018-09-20] MEDS: HEPARIN 1000 UNITS/ML 10 ML INJ CATHETER SCH (14:14)
--- NOTE | 2018-09-20 14:54 | CONS ---
Assessment/Plan Assessment/Plan Assessment/Plan (Daily) AN elderly gentleman with multiple medical problems including cardiovascular heart disease, respiratory failure, kidney damage, chronic renal failure. Oncology is on case for pancytopenia - most likely that pancytopenia is mostly due to sepsis and CRI, also has macrocytosis with no nutritional deficiency. given age however cannot rule out MDS, however this can only be diagnosed by bone marrow biopsy and given his current status would not recommend that as only supportive treatment would be offered given his poor performance status - check flow cytometry, he has few immature WBCs on differential, could be reactive but flow may help determine etiology - goal is supportive: Keep hemoglobin above 7 Keep platelets above 10,000. If the platelet drops below 10,000 or the patient bleeds, transfuse 1 unit of platelets. - he has very elevated ferritin c/w anemia of chronic disease/chronic i nflammation, Cr is elevated, he is a candidate for procrit -normal B12, folate on repeat testing -has macrocytosis, SPEP shows no paraprotein spike - check haptoglobin= 218 and Aditi- pending but doubt hemolysis as bili is normal- pending -pt is on Epogen, continue at current dose # Anemia- Hgb 7.5 monitor CBC # Acute Hypokalemia- replace per PMD Patient seen in collaboration with Dr Coleman Consultation Date/Type/Reason Admit Date/Time Sep 12, 2018 at 12:05 Initial Consult Date 09/13/18 Type of Consult oncology Reason for Consultation pancytopenia Requesting Provider: RUBÉN BENITO MD Date/Time of Note DATE: 09/20/18 TIME: 14:46 24 HR Interval Summary Free Text/Dictation - seems comfortable no new issues reported last night Subjective hx not possible: pt non-verbal Constitutional: requiring IVF, requiring O2 Exam/Review of Systems Exam Vitals Vital Signs Date Temp Pulse Resp B/P (MAP) Pulse Ox O2 O2 Flow FiO2 Time Delivery Rate 09/20/18 61 18 117/56 100 Mechanical 14:09 (76) Ventilator Trach Collar 09/20/18 35 13:15 09/20/18 97.8 11:24 Intake and Output 09/19/18 09/19/18 09/20/18 1515:00 23:00 07:00 IntakeIntake Total 100 ml 700 ml 820 ml OutputOutput Total 300 ml BalanceBalance 100 ml 700 ml 520 ml Constitutional: alert, well developed, non-verbal Psych: nl mood/affect Head: normocephalic Eyes: nl lids, nl sclera ENMT: nl external ears & nose Neck: non-tender Respiratory: diminished breath sounds Cardiovascular: nl pulses, other (s1s2) Gastrointestinal: soft, other Musculoskeletal: muscle weakness, range of motion Extremities: normal pulses Neurological: confused, other (alert) Lymph: nontender Results Result Diagram: 09/20/18 0506 09/20/18 0506 Results 24hrs Laboratory Tests Test 09/20/18 05:05 09/20/18 05:06 Hepatitis B Surface Antigen NEGATIVE White Blood Count 9.8 Red Blood Count 2.24 L Hemoglobin 7.5 L Hematocrit 22.7 L Mean Corpuscular Volume 101.3 H Mean Corpuscular Hemoglobin 33.5 H Mean Corpuscular Hemoglobin Concent 33.0 Red Cell Distribution Width 25.2 H Platelet Count 71 #L Mean Platelet Volume 14.8 H Immature Granulocytes % 7.400 H Neutrophils % Segmented Neutrophils % (Manual) 53 Band Neutrophils % (Manual) 19 H Lymphocytes % (Manual) 8 L Monocytes % (Manual) 13 H Eosinophils % Metamyelocytes % (manual) 3 H Myelocytes % (Manual) 3 H Promyelocytes % (Manual) 1 H Nucleated Red Blood Cells % 4 H Immature Granulocytes # 0.730 H Neutrophils # Neutrophils # (Manual) 5.4 Band Neutrophils # 1.8 H Lymphocytes (Manual) 0.7 L Monocytes # (Manual) 1.2 H Eosinophils # Metamyelocytes # 0.2 H Myelocytes # 0.2 H Promyelocytes # 0.0 Platelet Estimate DECREASED Giant Platelets 3 H Polychromasia 3+ Poikilocytosis 1+ Anisocytosis 2+ Macrocytosis 1+ Tear Drop Cells 1+ Ovalocytes 1+ Sodium Level 132 L Potassium Level 2.9 *L Chloride Level 101 Carbon Dioxide Level 19 L Anion Gap 12 Blood Urea Nitrogen 93 H Creatinine 2.11 H Est Glomerular Filtrat Rate mL/min Glucose Level 136 Calcium Level 8.0 L Medications Medication Current Medications Albuterol/ Ipratropium (Duoneb) 3 ml Q4H RESP THERAPY PRN HHN SHORTNESS OF BREATH Last administered on 09/14/18at 21:38; Admin Dose 3 ML; Start 09/12/18 at 20:30 Ascorbic Acid (Vitamin C) 250 mg DAILY GTB Last administered on 09/20/18 09:09; Admin Dose 250 MG; Start 09/13/18 at 09:00 Collagenase (Santyl) 1 applic BID TOP Last administered on 09/20/18 09:09; Admin Dose 1 APPLIC; Start 09/13/18 at 09:00 Escitalopram Oxalate (Lexapro) 10 mg DAILY GTB Last administered on 09/20/18 09:09; Admin Dose 10 MG; Start 09/13/18 at 09:00 Finasteride (Proscar) 5 mg DAILY GTB Last administered on 09/20/18 09:09; Admin Dose 5 MG; Start 09/13/18 at 09:00 Acetaminophen/ Hydrocodone Bitart ([place] (5/325)) 1 tab Q6H PRN PO MODERATE PAIN LEVEL 4-6 Last administered on 09/16/18 18:51; Admin Dose 1 TAB; Start 09/12/18 at 21:30 Lorazepam (Ativan) 0.5 mg Q6H PRN GTB ANXIETY Last administered on 09/19/18 21:36; Admin Dose 0.5 MG; Start 09/12/18 at 21:30 Multivit/Ca Carb/ B Cmplx/FA/Prenat (Ofe-Mine) 1 tab DAILY GTB Last administered on 09/20/18 09:09; Admin Dose 1 TAB; Start 09/13/18 at 09:00 Ondansetron HCl (Zofran Tab) 4 mg Q6H PRN GTB NAUSEA AND/OR VOMITING; Start 09/12/18 at 21:30 Zinc Oxide (Zinc Oxide Oint) 1 applic DAILY TOP Last administered on 09/20/18 09:09; Admin Dose 1 APPLIC; Start 09/13/18 at 09:00 Heparin Sodium (Porcine) (Heparin (1000 Units/ml)) 4,000 unit AFTER DIALYSIS CATHETER Last administered on 09/20/18 14:14; Admin Dose 4,000 UNIT; Start 09/13/18 at 16:30 Albumin Human 100 ml @ 100 mls/hr WITH DIALYSIS PRN IV SBP <90 DURING DIALYSIS Last administered on 09/20/18 11:50; Admin Dose 100 MLS/HR; Start 09/13/18 at 16:30 Sodium Chloride (NS) -To prime the dialy... DIRECTED FOR HD PRN IV HD; Start 09/13/18 at 16:30 Epoetin Tim (Epogen (Esrd)) 8,000 units TuThSa@17 SC Last administered on 09/18/18at 17:28; Admin Dose 8,000 UNITS; Start 09/13/18 at 17:00 Guaifenesin/ Dextromethorphan (Robitussin Dm Liquid Cup) 5 ml Q4H PRN PO Cough Last administered on 09/18/18at 05:01; Admin Dose 5 ML; Start 09/14/18 at 22:00 Vancomycin HCl (Vancomycin Oral Syringe) 125 mg Q6 PO Last administered on 09/20/18at 14:28; Admin Dose 125 MG; Start 09/15/18 at 12:00 Midodrine (Proamatine) 10 mg TID@09,13,17 PO Last administered on 09/20/18at 14:28; Admin Dose 10 MG; Start 09/17/18 at 13:00 Famotidine (Pepcid) 40 mg HS GTB Last administered on 09/19/18at 21:36; Admin Dose 40 MG; Start 09/19/18 at 21:00 JENNIFER RICHARD Sep 20, 2018 14:54
--- NOTE | 2018-09-20 15:02 | CONS ---
Assessment/Plan Assessment/Plan Assessment/Plan (Daily) 1. acute fluid overload due to inadquate HD due to hypotension 2. Severe anemia concerned about GI bleeding 3. Hypokalemia 4. ESRD on HD on Sat, , saturday schedule at [facility] 5. h/o HTN 6. h/o HL 7. H/o Prostate CA 8. H/O Chronic respiratory failure s/p tracheostomy in place 9. iron deficiency anemia 10. Pancytopenia Plan: s/p HD today 500ml removed, BP runs low during HD today continue midodrine to 10mg PO TID for BP support Epogen 8000 units SQ TTS we will keep pt on Sat, , saturday schedule- Next HD will be on saturday Hematolgoy oncology has been following for pancytopenia which thought due to sepsis IV Ferrlectin x 5 doses for iron deficiency anemia will follow up Consultation Date/Type/Reason Admit Date/Time Sep 12, 2018 at 12:05 Initial Consult Date 09/13/18 Type of Consult NEPHROLOGY Requesting Provider: RUBÉN BENITO MD Date/Time of Note DATE: 09/20/18 TIME: 15:00 24 HR Interval Summary Free Text/Dictation s/p HD today 500ml removed, BP runs low during HD today Exam/Review of Systems Exam Vitals Vital Signs Date Temp Pulse Resp B/P (MAP) Pulse Ox O2 O2 Flow FiO2 Time Delivery Rate 09/20/18 61 18 117/56 100 Mechanical 14:09 (76) Ventilator Trach Collar 09/20/18 35 13:15 09/20/18 97.8 11:24 Intake and Output 09/19/18 09/19/18 09/20/18 1515:00 23:00 07:00 IntakeIntake Total 100 ml 700 ml 820 ml OutputOutput Total 300 ml BalanceBalance 100 ml 700 ml 520 ml Exam Constitutional: non-verbal, distress ENMT: other (+ tracheostomy on venitlaotr ) Respiratory: diminished breath sounds, other (Bilateral coarse BS+) Cardiovascular: regular rate and rhythm Gastrointestinal: soft, other ( G tube in place ) Musculoskeletal: nl extremities to inspection Neurological: other (non verbal, on ventilator ) Results Result Diagram: 09/20/18 0506 09/20/18 0506 Results 24hrs Laboratory Tests Test 09/20/18 05:05 09/20/18 05:06 Hepatitis B Surface Antigen NEGATIVE White Blood Count 9.8 Red Blood Count 2.24 L Hemoglobin 7.5 L Hematocrit 22.7 L Mean Corpuscular Volume 101.3 H Mean Corpuscular Hemoglobin 33.5 H Mean Corpuscular Hemoglobin Concent 33.0 Red Cell Distribution Width 25.2 H Platelet Count 71 #L Mean Platelet Volume 14.8 H Immature Granulocytes % 7.400 H Neutrophils % Segmented Neutrophils % (Manual) 53 Band Neutrophils % (Manual) 19 H Lymphocytes % (Manual) 8 L Monocytes % (Manual) 13 H Eosinophils % Metamyelocytes % (manual) 3 H Myelocytes % (Manual) 3 H Promyelocytes % (Manual) 1 H Nucleated Red Blood Cells % 4 H Immature Granulocytes # 0.730 H Neutrophils # Neutrophils # (Manual) 5.4 Band Neutrophils # 1.8 H Lymphocytes (Manual) 0.7 L Monocytes # (Manual) 1.2 H Eosinophils # Metamyelocytes # 0.2 H Myelocytes # 0.2 H Promyelocytes # 0.0 Platelet Estimate DECREASED Giant Platelets 3 H Polychromasia 3+ Poikilocytosis 1+ Anisocytosis 2+ Macrocytosis 1+ Tear Drop Cells 1+ Ovalocytes 1+ Sodium Level 132 L Potassium Level 2.9 *L Chloride Level 101 Carbon Dioxide Level 19 L Anion Gap 12 Blood Urea Nitrogen 93 H Creatinine 2.11 H Est Glomerular Filtrat Rate mL/min Glucose Level 136 Calcium Level 8.0 L Medications Medication Current Medications Albuterol/ Ipratropium (Duoneb) 3 ml Q4H RESP THERAPY PRN HHN SHORTNESS OF BR EATH Last administered on 09/14/18at 21:38; Admin Dose 3 ML; Start 09/12/18 at 20:30 Ascorbic Acid (Vitamin C) 250 mg DAILY GTB Last administered on 09/20/18at 09:09; Admin Dose 250 MG; Start 09/13/18 at 09:00 Collagenase (Santyl) 1 applic BID TOP Last administered on 09/20/18at 09:09; Admin Dose 1 APPLIC; Start 09/13/18 at 09:00 Escitalopram Oxalate (Lexapro) 10 mg DAILY GTB Last administered on 09/20/18at 09:09; Admin Dose 10 MG; Start 09/13/18 at 09:00 Finasteride (Proscar) 5 mg DAILY GTB Last administered on 09/20/18 09:09; Admin Dose 5 MG; Start 09/13/18 at 09:00 Acetaminophen/ Hydrocodone Bitart ([place] (5/325)) 1 tab Q6H PRN PO MODERATE PAIN LEVEL 4-6 Last administered on 09/16/18 18:51; Admin Dose 1 TAB; Start 09/12/18 at 21:30 Lorazepam (Ativan) 0.5 mg Q6H PRN GTB ANXIETY Last administered on 09/19/18 21:36; Admin Dose 0.5 MG; Start 09/12/18 at 21:30 Multivit/Ca Carb/ B Cmplx/FA/Prenat ([place]fe-Mine) 1 tab DAILY GTB Last administered on 09/20/18 09:09; Admin Dose 1 TAB; Start 09/13/18 at 09:00 Ondansetron HCl (Zofran Tab) 4 mg Q6H PRN GTB NAUSEA AND/OR VOMITING; Start at 21:30 Zinc Oxide (Zinc Oxide Oint) 1 applic DAILY TOP Last administered on 09/20/18 09:09; Admin Dose 1 APPLIC; Start 09/13/18 at 09:00 Heparin Sodium (Porcine) (Heparin (1000 Units/ml)) 4,000 unit AFTER DIALYSIS CATHETER Last administered on 09/20/18 14:14; Admin Dose 4,000 UNIT; Start 09/13/18 at 16:30 Albumin Human 100 ml @ 100 mls/hr WITH DIALYSIS PRN IV SBP <90 DURING DIALYSIS Last administered on 09/20/18 11:50; Admin Dose 100 MLS/HR; Start 09/13/18 at 16:30 Sodium Chloride (NS) -To prime the dialy... DIRECTED FOR HD PRN IV HD; Start 09/13/18 at 16:30 Epoetin Tim (Epogen (Esrd)) 8,000 units TuThSa@17 SC Last administered on 09/18/18 17:28; Admin Dose 8,000 UNITS; Start 09/13/18 at 17:00 Guaifenesin/ Dextromethorphan (Robitussin Dm Liquid Cup) 5 ml Q4H PRN PO Cough Last administered on 09/18/18 05:01; Admin Dose 5 ML; Start 09/14/18 at 22:00 Vancomycin HCl (Vancomycin Oral Syringe) 125 mg Q6 PO Last administered on 09/20/18at 14:28; Admin Dose 125 MG; Start 09/15/18 at 12:00 Midodrine (Proamatine) 10 mg TID@09,13,17 PO Last administered on 09/20/18at 14 :28; Admin Dose 10 MG; Start 09/17/18 at 13:00 Famotidine (Pepcid) 40 mg HS GTB Last administered on 09/19/18at 21:36; Admin Dose 40 MG; Start 09/19/18 at 21:00 FELICIANO RAMIREZ MD Sep 20, 2018 15:02
[2018-09-20] MEDS: EPOETIN 4000 UNITS/1 ML INJ (ESRD) SC SCH (16:19)
[2018-09-20] MEDS: FAMOTIDINE 20 MG TAB GTB SCH (22:00)
--- NOTE | 2018-09-20 22:25 | CONS ---
Assessment/Plan Assessment/Plan Hospital Course (Demo Recall) ID PROGRESS NOTE CURRENT ABX: DAY # => Flagyl IV #6 + Vanco liq GT #6 s/p Ertapenem #5 24H INTERVAL SUMMARY * NO FEVERS, VSS, WBC stable, non-verbal, chronic encephalopathic, generalized weakness/debility * s/p HD today 500ml removed, BP runs low during HD today -- he is on Midodrine to 10mg PO TID for BP support * Patient is frail 83 yo M with chronic debility, generalized weakness, appears frail, opens eyes to verbal otherwise appears encephalopathic. Chronic * 09/14/18 CXR Mildly increased interstitial edema suggesting cardiopulmonary congestion. Small left pleural effusion increased. MICRO * 09/13/18 (+)C.DIFF * 09/12/18 (-) MRSA Nares PHYSICAL EXAMINATION: GENERAL: Afebrile, VSS, encephalopathic HEENT: AT, NC, anicteric, left nare pressure ulcer w/eschar NECK: Grossly normal (+)Trach secure to Vent CHEST: Equal chest rise bilaterally = crackles * Left chest PermCath in place, no erythema at insert site HEART: Pulse RRR ABDOMEN: Soft / ND, peg EXTREMITIES: Warm, bilateral hand edema with right hand ecchymosis from lab draw vs PIV, BLEXT edema SKIN: No rash, no diaphoresis ID ASSESSMENT 83 yo M admit with: 1. Recent urinary tract infection -on Ertapenem 2. Acute C.Diff colitis w/rectocele 3. Significant anemia with a history of gastrointestinal bleeding- no active bleeding * Hx of Erosive gastritis and also AV malformation. 4. Recurrent pneumonias with respiratory failure ->(+) tracheostomy. * Hx of Enterococcus trach site 5. End-stage renal failure on hemodialysis. 6. Pacer - with good function, 100% paced now. 7. CAD - hx of open heart surgery 8. CHF w/Abnormal electrocardiogram * 09/14/18 CXR Mildly increased interstitial edema suggesting cardiopulmonary congestion. Small left pleural effusion increased. 9. Hypertension, controlled 10 .End-stage renal disease on hemodialysis 11. Diabetes mellitus- on meds (-)MRSA Nares Screen ABX ALLERGIES: KNDA INVASIVES: PermCATH (08/14/18), Trach, Peg CURRENT ABX: DAY # => Flagyl IV #6+ Vanco liq GT #6 s/p Ertapenem #5 ID RECOMMENDATIONS/PLAN: Continue ABX Flagy + Vanco Liq for C.Diff -- at least 10 day course -- He may need longer if this is a recurrent C.Diff infection, incomplete database . Consultation Date/Type/Reason Admit Date/Time Sep 12, 2018 at 12:05 Initial Consult Date 09/13/18 Requesting Provider: RUBÉN BENITO MD Date/Time of Note DATE: 09/20/18 TIME: 22:23 Exam/Review of Systems Exam Vitals Vital Signs Date Temp Pulse Resp B/P (MAP) Pulse Ox O2 O2 Flow FiO2 Time Delivery Rate 09/20/18 60 20:00 09/20/18 98.5 18 100/55 100 19:27 (70) 09/20/18 35 17:17 09/20/18 Mechanical 14:09 Ventilator Trach Collar Intake and Output 09/19/18 09/19/18 09/20/18 1515:00 23:00 07:00 IntakeIntake Total 100 ml 700 ml 820 ml OutputOutput Total 300 ml BalanceBalance 100 ml 700 ml 520 ml Results Result Diagram: 09/20/18 0506 09/20/18 0506 Results 24hrs Laboratory Tests Test 09/20/18 05:05 09/20/18 05:06 Hepatitis B Surface Antigen NEGATIVE White Blood Count 9.8 Red Blood Count 2.24 L Hemoglobin 7.5 L Hematocrit 22.7 L Mean Corpuscular Volume 101.3 H Mean Corpuscular Hemoglobin 33.5 H Mean Corpuscular Hemoglobin Concent 33.0 Red Cell Distribution Width 25.2 H Platelet Count 71 #L Mean Platelet Volume 14.8 H Immature Granulocytes % 7.400 H Neutrophils % Segmented Neutrophils % (Manual) 53 Band Neutrophils % (Manual) 19 H Lymphocytes % (Manual) 8 L Monocytes % (Manual) 13 H Eosinophils % Metamyelocytes % (manual) 3 H Myelocytes % (Manual) 3 H Promyelocytes % (Manual) 1 H Nucleated Red Blood Cells % 4 H Immature Granulocytes # 0.730 H Neutrophils # Neutrophils # (Manual) 5.4 Band Neutrophils # 1.8 H Lymphocytes (Manual) 0.7 L Monocytes # (Manual) 1.2 H Eosinophils # Metamyelocytes # 0.2 H Myelocytes # 0.2 H Promyelocytes # 0.0 Platelet Estimate DECREASED Giant Platelets 3 H Polychromasia 3+ Poikilocytosis 1+ Anisocytosis 2+ Macrocytosis 1+ Tear Drop Cells 1+ Ovalocytes 1+ Sodium Level 132 L Potassium Level 2.9 *L Chloride Level 101 Carbon Dioxide Level 19 L Anion Gap 12 Blood Urea Nitrogen 93 H Creatinine 2.11 H Est Glomerular Filtrat Rate mL/min Glucose Level 136 Calcium Level 8.0 L Medications Medication Current Medications Albuterol/ Ipratropium (Duoneb) 3 ml Q4H RESP THERAPY PRN HHN SHORTNESS OF BREATH Last administered on 09/14/18 21:38; Admin Dose 3 ML; Start 09/12/18 at 20:30 Ascorbic Acid (Vitamin C) 250 mg DAILY GTB Last administered on 09/20/18 09:09; Admin Dose 250 MG; Start 09/13/18 at 09:00 Collagenase (Santyl) 1 applic BID TOP Last administered on 09/20/18 21:59; Admin Dose 1 APPLIC; Start 09/13/18 at 09:00 Escitalopram Oxalate (Lexapro) 10 mg DAILY GTB Last administered on 09/20/18 09:09; Admin Dose 10 MG; Start 09/13/18 at 09:00 Finasteride (Proscar) 5 mg DAILY GTB Last administered on 09/20/18 09:09; Admin Dose 5 MG; Start 09/13/18 at 09:00 Acetaminophen/ Hydrocodone Bitart ([place] (5/325)) 1 tab Q6H PRN PO MODERATE PAIN LEVEL 4-6 Last administered on 09/16/18 18:51; Admin Dose 1 TAB; Start 09/12/18 at 21:30 Lorazepam (Ativan) 0.5 mg Q6H PRN GTB ANXIETY Last administered on 09/19/18 21:36; Admin Dose 0.5 MG; Start 09/12/18 at 21:30 Multivit/Ca Carb/ B Cmplx/FA/Prenat (Ofe-Mine) 1 tab DAILY GTB Last administered on 09/20/18 09:09; Admin Dose 1 TAB; Start 09/13/18 at 09:00 Ondansetron HCl (Zofran Tab) 4 mg Q6H PRN GTB NAUSEA AND/OR VOMITING; Start 09/12/18 at 21:30 Zinc Oxide (Zinc Oxide Oint) 1 applic DAILY TOP Last administered on 09/20/18 09:09; Admin Dose 1 APPLIC; Start 09/13/18 at 09:00 Heparin Sodium (Porcine) (Heparin (1000 Units/ml)) 4,000 unit AFTER DIALYSIS CATHETER Last administered on 09/20/18 14:14; Admin Dose 4,000 UNIT; Start 09/13/18 at 16:30 Albumin Human 100 ml @ 100 mls/hr WITH DIALYSIS PRN IV SBP <90 DURING DIALYSIS Last administered on 09/20/18 11:50; Admin Dose 100 MLS/HR; Start 09/13/18 at 16:30 Sodium Chloride (NS) -To prime the dialy... DIRECTED FOR HD PRN IV HD; Start 09/13/18 at 16:30 Epoetin Tim (Epogen (Esrd)) 8,000 units TuThSa@17 SC Last administered on 09/20/18 16:19; Admin Dose 8,000 UNITS; Start 09/13/18 at 17:00 Guaifenesin/ Dextromethorphan (Robitussin Dm Liquid Cup) 5 ml Q4H PRN PO Cough Last administered on 09/18/18 05:01; Admin Dose 5 ML; Start 09/14/18 at 22:00 Vancomycin HCl (Vancomycin Oral Syringe) 125 mg Q6 PO Last administered on 09/20/18 17:21; Admin Dose 125 MG; Start 09/15/18 at 12:00 Midodrine (Proamatine) 10 mg TID@,,17 PO Last administered on 09/20/18 16:19; Admin Dose 10 MG; Start 09/17/18 at 13:00 Famotidine (Pepcid) 40 mg HS GTB Last administered on 09/20/18 22:00; Admin Dose 40 MG; Start 09/19/18 at 21:00 ANNE-MARIE LUNSFORD [employer] Sep 20, 2018 22:25
[2018-09-21] VITALS (22 sets, daily range): BP systolic 110–127; BP diastolic 58–71; PULSE 50–79; RESP 15–34
[2018-09-21] MEDS: VANCOMYCIN HCL 250 MG/5ML POSYG PO SCH ×5 (00:29→23:04)
[2018-09-21] MEDS: MIDODRINE 5 MG TAB PO SCH ×3 (09:00→17:00)
[2018-09-21] MEDS: MULTIVIT/CA CARB/B CMPLX/FA TAB GTB SCH (09:24)
[2018-09-21] MEDS: ASCORBIC ACID 250 MG TAB GTB SCH (09:24)
[2018-09-21] MEDS: FINASTERIDE 5 MG TAB GTB SCH (09:24)
[2018-09-21] MEDS: ESCITALOPRAM 10 MG TAB GTB SCH (09:24)
[2018-09-21] MEDS: ZINC OXIDE 20% 30 GM OINT TOP SCH (09:26)
[2018-09-21] MEDS: BALSAM PERU/CASTOR OIL 60 GM TUBE TOP SCH (09:26)
[2018-09-21] MEDS: COLLAGENASE 5 GM (UD JAR) TOP SCH ×2 (09:27→23:05)
[2018-09-21] MEDS: HYDROCODONE/APAP (5/325) TAB PO PRN (10:04)
[2018-09-21] MEDS: POTASSIUM CHLORIDE 100 ML IVPB SCH ×2 (11:20→14:27)
--- NOTE | 2018-09-21 11:25 | CONS ---
Assessment/Plan Assessment/Plan Hospital Course (Demo Recall) IMP: 1.BRadycardia-possible miscounting by tele monitor- no recurrent jey by tele 2.PPM-v paced at 60. No signs of dysfunction 3.c diff 4.ESRD on HD 5. Resp failure-chronic s/p trach 6. Hypotension-on midodrine with improved BP Recc: -Tele -serial ecg's -Follow rhythm/rate closely -Continue flagyl/vanc -midodrine BP support as necessary only. Held today with stable BP -HD for volume removal -albumin infusions as necessary Consultation Date/Type/Reason Admit Date/Time Sep 12, 2018 at 12:05 Initial Consult Date 09/13/18 Type of Consult Cardiology Reason for Consultation Bradycardia Requesting Provider: RUBÉN BENITO MD Date/Time of Note DATE: 09/21/18 TIME: 11:23 Exam/Review of Systems Vital Signs Vitals Vital Signs Date Temp Pulse Resp B/P (MAP) Pulse Ox O2 O2 Flow FiO2 Time Delivery Rate 09/21/18 60 21 100 35 09:15 09/21/18 98.0 122/58 07:14 (79) 09/20/18 Mechanical 14:09 Ventilator Trach Collar Intake and Output 09/20/18 09/20/18 09/21/18 1515:00 23:00 07:00 IntakeIntake Total 700 ml 680 ml OutputOutput Total 1000 ml 600 ml BalanceBalance -1000 ml 700 ml 80 ml Exam Exam Review of Systems: CONSTITUTIONAL: No fevers, chills. PULMONARY: trached CARDIOVASCULAR: No chest pain/palpitations GASTROINTESTINAL: No nausea/vomiting. GENITOURINARY: No hematuria/dysuria. MUSCULOSKELETAL: No myagias/arthalgias. PSYCHIATRIC: The patient denies depression. NEUROLOGIC: No weakness Constitutional: alert Psych: no complaints, confusion Head: normocephalic ENMT: mucosa pink and moist Neck: supple, jvd (9 cm water) Respiratory: diminished breath sounds (at bases/B) Cardiovascular: regular rate and rhythm Gastrointestinal: soft, non-tender Musculoskeletal: muscle weakness (generalized) Extremities: edema (none) Labs Result Diagram: 09/21/18 0509/21/18 0521 Results 24hrs Laboratory Tests Test 09/21/18 05:21 White Blood Count 8.9 Red Blood Count 2.06 L Hemoglobin 7.0 L Hematocrit 21.5 L Mean Corpuscular Volume 104.4 H Mean Corpuscular Hemoglobin 34.0 H Mean Corpuscular Hemoglobin Concent 32.6 Red Cell Distribution Width 26.5 H Platelet Count 68 L Mean Platelet Volume 14.2 H Immature Granulocytes % 5.200 H Neutrophils % 79.2 H Segmented Neutrophils % (Manual) 43 Band Neutrophils % (Manual) 39 H Lymphocytes % 8.9 L Lymphocytes % (Manual) 3 L Reactive Lymphocytes % (Manual) 2 H Monocytes % 6.4 Monocytes % (Manual) 11 Eosinophils % 0.2 Basophils % 0.1 Metamyelocytes % (manual) 1 H Myelocytes % (Manual) 1 H Nucleated Red Blood Cells % 5 H Immature Granulocytes # 0.460 H Neutrophils # 7.1 Neutrophils # (Manual) 4.1 Band Neutrophils # 3.4 H Lymphocytes (Manual) 0.2 L Lymphocytes # 0.8 Reactive Lymphocytes # 0.1 H Monocytes # 0.6 Monocytes # (Manual) 0.9 Eosinophils # 0.0 Basophils # 0.0 Metamyelocytes # 0.0 Myelocytes # 0.0 Nucleated Red Blood Cells # 0.4 H Platelet Estimate DECREASED Giant Platelets 4 H Polychromasia 2+ Anisocytosis 2+ Macrocytosis 2+ Tear Drop Cells 1+ Ovalocytes 1+ Sodium Level 136 Potassium Level 3.2 L Chloride Level 104 Carbon Dioxide Level 20 L Anion Gap 12 Blood Urea Nitrogen 77 H Creatinine 1.74 H Est Glomerular Filtrat Rate mL/min Glucose Level 127 Calcium Level 8.2 L Medications Medications Current Medications Albuterol/ Ipratropium (Duoneb) 3 ml Q4H RESP THERAPY PRN HHN SHORTNESS OF B REATH Last administered on 09/14/18at 21:38; Admin Dose 3 ML; Start 09/12/18 at 20:30 Ascorbic Acid (Vitamin C) 250 mg DAILY GTB Last administered on 09/21/18 09:24; Admin Dose 250 MG; Start 09/13/18 at 09:00 Collagenase (Santyl) 1 applic BID TOP Last administered on 09/21/18 09:27; Admin Dose 1 APPLIC; Start 09/13/18 at 09:00 Escitalopram Oxalate (Lexapro) 10 mg DAILY GTB Last administered on 09/21/18 09:24; Admin Dose 10 MG; Start 09/13/18 at 09:00 Finasteride (Proscar) 5 mg DAILY GTB Last administered on 09/21/18 09:24; Admin Dose 5 MG; Start 09/13/18 at 09:00 Acetaminophen/ Hydrocodone Bitart ([place] (5/325)) 1 tab Q6H PRN PO MODERATE PAIN LEVEL 4-6 Last administered on 09/21/18 10:04; Admin Dose 1 TAB; Start 09/12/18 at 21:30 Lorazepam (Ativan) 0.5 mg Q6H PRN GTB ANXIETY Last administered on 09/19/18 21:36; Admin Dose 0.5 MG; Start 09/12/18 at 21:30 Multivit/Ca Carb/ B Cmplx/FA/Prenat ([place]) 1 tab DAILY GTB Last administered on 09/21/18 09:24; Admin Dose 1 TAB; Start 09/13/18 at 09:00 Ondansetron HCl (Zofran Tab) 4 mg Q6H PRN GTB NAUSEA AND/OR VOMITING; Start 09/12/18 at 21:30 Zinc Oxide (Zinc Oxide Oint) 1 applic DAILY TOP Last administered on 09/21/18 09:26; Admin Dose 1 APPLIC; Start 09/13/18 at 09:00 Heparin Sodium (Porcine) (Heparin (1000 Units/ml)) 4,000 unit AFTER DIALYSIS CATHETER Last administered on 09/20/18 14:14; Admin Dose 4,000 UNIT; Start 09/13/18 at 16:30 Albumin Human 100 ml @ 100 mls/hr WITH DIALYSIS PRN IV SBP <90 DURING DIALYSIS Last administered on 09/20/18 11:50; Admin Dose 100 MLS/HR; Start 09/13/18 at 16:30 Sodium Chloride (NS) -To prime the dialy... DIRECTED FOR HD PRN IV HD; Start 09/13/18 at 16:30 Epoetin Tim (Epogen (Esrd)) 8,000 units TuThSa@17 SC Last administered on 09/20/18 16:19; Admin Dose 8,000 UNITS; Start 09/13/18 at 17:00 Guaifenesin/ Dextromethorphan (Robitussin Dm Liquid Cup) 5 ml Q4H PRN PO Cough Last administered on 2/21/19at 05:01; Admin Dose 5 ML; Start 09/14/18 at 22:00 Vancomycin HCl (Vancomycin Oral Syringe) 125 mg Q6 PO Last administered on 09/21/18at 05:19; Admin Dose 125 MG; Start 09/15/18 at 12:00 Midodrine (Proamatine) 10 mg TID@09,13,17 PO Last administered on 09/20/18at 1 6:19; Admin Dose 10 MG; Start 09/17/18 at 13:00 Famotidine (Pepcid) 40 mg HS GTB Last administered on 09/20/18at 22:00; Admin Dose 40 MG; Start 09/19/18 at 21:00 Potassium Chloride 100 ml @ 50 mls/hr Q2H IVPB Last administered on 09/21/18at 11:20; Admin Dose 50 MLS/HR; Start 09/21/18 at 11:00; Stop 09/21/18 at 14:59 PETRA DELA CRUZ Sep 21, 2018 11:25
--- NOTE | 2018-09-21 11:34 | PN ---
Date/Time of Note Date/Time of Note DATE: 09/21/18 TIME: 11:34 Assessment/Plan VTE Prophylaxis Risk score (from [facility] [place])>0 risk: 10 SCD applied (from [facility] [place]): Yes Pharmacological prophylaxis: LMWH Lines/Catheters IV Catheter Type (from [facility]): Saline Lock Assessment/Plan Hospital Course - hYPOKALEMIA -C. difficile colitis, continue Vanco via G-tube. Dr. Rebolledo is following in infection disease consultation. -Pancytopenia, status post blood transfusion. Dr. Coleman is following him here in hematology consultation. Dr. Hedrick is following in gastroenterology consultation. 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 Continue Prevacid. -Coronary artery disease status post PCI. Patient with pancytopenia with history of recurrent gastrointestinal bleed, unfortunately cannot be giving aspirin or Plavix. -Permanent pacemaker -Ventilator dependent respiratory failure. Dr. Mendoza is following in pulmonology consultation. -Hemodialysis dependent end-stage renal disease. Continue hemodialysis. Dr. Mari is following in nephrology consultation. -Dysphagia with G-tube -Sacral decubitus. Continue local wound care. -Depression. Continue Lexapro. -History of prostate cancer Result Diagram: 09/21/18 0521 09/21/18 0521 Results 24hrs Laboratory Tests Test 09/21/18 05:21 White Blood Count 8.9 Red Blood Count 2.06 L Hemoglobin 7.0 L Hematocrit 21.5 L Mean Corpuscular Volume 104.4 H Mean Corpuscular Hemoglobin 34.0 H Mean Corpuscular Hemoglobin Concent 32.6 Red Cell Distribution Width 26.5 H Platelet Count 68 L Mean Platelet Volume 14.2 H Immature Granulocytes % 5.200 H Neutrophils % 79.2 H Segmented Neutrophils % (Manual) 43 Band Neutrophils % (Manual) 39 H Lymphocytes % 8.9 L Lymphocytes % (Manual) 3 L Reactive Lymphocytes % (Manual) 2 H Monocytes % 6.4 Monocytes % (Manual) 11 Eosinophils % 0.2 Basophils % 0.1 Metamyelocytes % (manual) 1 H Myelocytes % (Manual) 1 H Nucleated Red Blood Cells % 5 H Immature Granulocytes # 0.460 H Neutrophils # 7.1 Neutrophils # (Manual) 4.1 Band Neutrophils # 3.4 H Lymphocytes (Manual) 0.2 L Lymphocytes # 0.8 Reactive Lymphocytes # 0.1 H Monocytes # 0.6 Monocytes # (Manual) 0.9 Eosinophils # 0.0 Basophils # 0.0 Metamyelocytes # 0.0 Myelocytes # 0.0 Nucleated Red Blood Cells # 0.4 H Platelet Estimate DECREASED Giant Platelets 4 H Polychromasia 2+ Anisocytosis 2+ Macrocytosis 2+ Tear Drop Cells 1+ Ovalocytes 1+ Sodium Level 136 Potassium Level 3.2 L Chloride Level 104 Carbon Dioxide Level 20 L Anion Gap 12 Blood Urea Nitrogen 77 H Creatinine 1.74 H Est Glomerular Filtrat Rate mL/min Glucose Level 127 Calcium Level 8.2 L Subjective 24 Hr Interval Summary Free Text/Dictation Patient on vent via trach, appears comfortable Exam/Review of Systems Exam Vitals Vital Signs Date Temp Pulse Resp B/P (MAP) Pulse Ox O2 O2 Flow FiO2 Time Delivery Rate 09/21/18 60 15 100 35 11:15 09/21/18 98.0 122/58 07:14 (79) 09/20/18 Mechanical 14:09 Ventilator Trach Collar Intake and Output 09/20/18 09/20/18 09/21/18 1515:00 23:00 07:00 IntakeIntake Total 700 ml 680 ml OutputOutput Total 1000 ml 600 ml BalanceBalance -1000 ml 700 ml 80 ml Constitutional: well developed Head: normocephalic, atraumatic Neck: supple Respiratory: diminished breath sounds Cardiovascular: regular rate and rhythm Gastrointestinal: soft, non-tender Extremities: normal pulses Results Results 24hrs Laboratory Tests Test 09/21/18 05:21 White Blood Count 8.9 Red Blood Count 2.06 L Hemoglobin 7.0 L Hematocrit 21.5 L Mean Corpuscular Volume 104.4 H Mean Corpuscular Hemoglobin 34.0 H Mean Corpuscular Hemoglobin Concent 32.6 Red Cell Distribution Width 26.5 H Platelet Count 68 L Mean Platelet Volume 14.2 H Immature Granulocytes % 5.200 H Neutrophils % 79.2 H Segmented Neutrophils % (Manual) 43 Band Neutrophils % (Manual) 39 H Lymphocytes % 8.9 L Lymphocytes % (Manual) 3 L Reactive Lymphocytes % (Manual) 2 H Monocytes % 6.4 Monocytes % (Manual) 11 Eosinophils % 0.2 Basophils % 0.1 Metamyelocytes % (manual) 1 H Myelocytes % (Manual) 1 H Nucleated Red Blood Cells % 5 H Immature Granulocytes # 0.460 H Neutrophils # 7.1 Neutrophils # (Manual) 4.1 Band Neutrophils # 3.4 H Lymphocytes (Manual) 0.2 L Lymphocytes # 0.8 Reactive Lymphocytes # 0.1 H Monocytes # 0.6 Monocytes # (Manual) 0.9 Eosinophils # 0.0 Basophils # 0.0 Metamyelocytes # 0.0 Myelocytes # 0.0 Nucleated Red Blood Cells # 0.4 H Platelet Estimate DECREASED Giant Platelets 4 H Polychromasia 2+ Anisocytosis 2+ Macrocytosis 2+ Tear Drop Cells 1+ Ovalocytes 1+ Sodium Level 136 Potassium Level 3.2 L Chloride Level 104 Carbon Dioxide Level 20 L Anion Gap 12 Blood Urea Nitrogen 77 H Creatinine 1.74 H Est Glomerular Filtrat Rate mL/min Glucose Level 127 Calcium Level 8.2 L Medications Medication Current Medications Albuterol/ Ipratropium (Duoneb) 3 ml Q4H RESP THERAPY PRN HHN SHORTNESS OF BREATH Last administered on 09/14/18 21:38; Admin Dose 3 ML; Start 09/12/18 at 20:30 Ascorbic Acid (Vitamin C) 250 mg DAILY GTB Last administered on 09/21/18 09:24; Admin Dose 250 MG; Start 09/13/18 at 09:00 Collagenase (Santyl) 1 applic BID TOP Last administered on 09/21/18 09:27; Admin Dose 1 APPLIC; Start 09/13/18 at 09:00 Escitalopram Oxalate (Lexapro) 10 mg DAILY GTB Last administered on 09/21/18 09:24; Admin Dose 10 MG; Start 09/13/18 at 09:00 Finasteride (Proscar) 5 mg DAILY GTB Last administered on 09/21/18 09:24; Admin Dose 5 MG; Start 09/13/18 at 09:00 Acetaminophen/ Hydrocodone Bitart ([place] (5/325)) 1 tab Q6H PRN PO MODERATE PAIN LEVEL 4-6 Last administered on 09/21/18 10:04; Admin Dose 1 TAB; Start 09/12/18 at 21:30 Lorazepam (Ativan) 0.5 mg Q6H PRN GTB ANXIETY Last administered on 09/19/18 21:36; Admin Dose 0.5 MG; Start 09/12/18 at 21:30 Multivit/Ca Carb/ B Cmplx/FA/Prenat ([place]fe[place]) 1 tab DAILY GTB Last administered on 09/21/18 09:24; Admin Dose 1 TAB; Start 09/13/18 at 09:00 Ondansetron HCl (Zofran Tab) 4 mg Q6H PRN GTB NAUSEA AND/OR VOMITING; Start 09/12/18 at 21:30 Zinc Oxide (Zinc Oxide Oint) 1 applic DAILY TOP Last administered on 09/21/18 09:26; Admin Dose 1 APPLIC; Start 09/13/18 at 09:00 Heparin Sodium (Porcine) (Heparin (1000 Units/ml)) 4,000 unit AFTER DIALYSIS CATHETER Last administered on 09/20/18 14:14; Admin Dose 4,000 UNIT; Start 09/13/18 at 16:30 Albumin Human 100 ml @ 100 mls/hr WITH DIALYSIS PRN IV SBP <90 DURING DIALYSIS Last administered on 09/20/18 11:50; Admin Dose 100 MLS/HR; Start 09/13/18 at 16:30 Sodium Chloride (NS) -To prime the dialy... DIRECTED FOR HD PRN IV HD; Start 09/13/18 at 16:30 Epoetin Tim (Epogen (Esrd)) 8,000 units TuThSa@17 SC Last administered on 09/20/18 16:19; Admin Dose 8,000 UNITS; Start 09/13/18 at 17:00 Guaifenesin/ Dextromethorphan (Robitussin Dm Liquid Cup) 5 ml Q4H PRN PO Cough Last administered on 09/18/18 05:01; Admin Dose 5 ML; Start 09/14/18 at 22:00 Vancomycin HCl (Vancomycin Oral Syringe) 125 mg Q6 PO Last administered on 09/21/18 05:19; Admin Dose 125 MG; Start 09/15/18 at 12:00 Midodrine (Proamatine) 10 mg TID@09,13,17 PO Last administered on 09/20/18 16:19; Admin Dose 10 MG; Start 09/17/18 at 13:00 Famotidine (Pepcid) 40 mg HS GTB Last administered on 09/20/18 22:00; Admin Dose 40 MG; Start 09/19/18 at 21:00 Potassium Chloride 100 ml @ 50 mls/hr Q2H IVPB Last administered on 09/21/18at 11:20; Admin Dose 50 MLS/HR; Start 09/21/18 at 11:00; Stop 09/21/18 at 14:59 HARLEY STARR Sep 21, 2018 11:34
--- NOTE | 2018-09-21 12:40 | CONS ---
Consult Date/Type/Reason Admit Date/Time Sep 12, 2018 at 12:05 Initial Consult Date 09/13/18 Type of Consult Pulmonary Requesting Provider: RUBÉN BENITO MD Date/Time of Note DATE: 09/21/18 TIME: 12:39 Subjective No resp distress. Objective Vital Signs Date Temp Pulse Resp B/P (MAP) Pulse Ox O2 O2 Flow FiO2 Time Delivery Rate 09/21/18 60 15 100 35 11:15 09/21/18 98.0 122/58 07:14 (79) 09/20/18 Mechanical 14:09 Ventilator Trach Collar Intake and Output 09/20/18 09/20/18 09/21/18 1515:00 23:00 07:00 IntakeIntake Total 700 ml 680 ml OutputOutput Total 1000 ml 600 ml BalanceBalance -1000 ml 700 ml 80 ml Exam PHYSICAL EXAMINATION: GENERAL: Elderly-appearing gentleman on mechanical ventilation. He appears comfortable at rest, no acute distress. VITAL SIGNS: NECK: Trach site clean and intact. CARDIAC: S1, S2, no added sounds or murmurs. CHEST: Diminished air entry bilaterally. ABDOMEN: Soft, nontender. No guarding or rebound. EXTREMITIES: No cyanosis, clubbing or edema. NEUROLOGIC: Generalized weakness. Vent Setting Ventilator Support Mode: AC Fraction of Inspired Oxygen pe: 35 Positive End Expiratory Pressu: 5.0 Results/Medications Result Diagram: 09/21/1852009/21/18520 Results 24 hrs Laboratory Tests Test 09/21/18 05:21 White Blood Count 8.9 Red Blood Count 2.06 L Hemoglobin 7.0 L Hematocrit 21.5 L Mean Corpuscular Volume 104.4 H Mean Corpuscular Hemoglobin 34.0 H Mean Corpuscular Hemoglobin Concent 32.6 Red Cell Distribution Width 26.5 H Platelet Count 68 L Mean Platelet Volume 14.2 H Immature Granulocytes % 5.200 H Neutrophils % 79.2 H Segmented Neutrophils % (Manual) 43 Band Neutrophils % (Manual) 39 H Lymphocytes % 8.9 L Lymphocytes % (Manual) 3 L Reactive Lymphocytes % (Manual) 2 H Monocytes % 6.4 Monocytes % (Manual) 11 Eosinophils % 0.2 Basophils % 0.1 Metamyelocytes % (manual) 1 H Myelocytes % (Manual) 1 H Nucleated Red Blood Cells % 5 H Immature Granulocytes # 0.460 H Neutrophils # 7.1 Neutrophils # (Manual) 4.1 Band Neutrophils # 3.4 H Lymphocytes (Manual) 0.2 L Lymphocytes # 0.8 Reactive Lymphocytes # 0.1 H Monocytes # 0.6 Monocytes # (Manual) 0.9 Eosinophils # 0.0 Basophils # 0.0 Metamyelocytes # 0.0 Myelocytes # 0.0 Nucleated Red Blood Cells # 0.4 H Platelet Estimate DECREASED Giant Platelets 4 H Polychromasia 2+ Anisocytosis 2+ Macrocytosis 2+ Tear Drop Cells 1+ Ovalocytes 1+ Sodium Level 136 Potassium Level 3.2 L Chloride Level 104 Carbon Dioxide Level 20 L Anion Gap 12 Blood Urea Nitrogen 77 H Creatinine 1.74 H Est Glomerular Filtrat Rate mL/min Glucose Level 127 Calcium Level 8.2 L Medications Current Medications Albuterol/ Ipratropium (Duoneb) 3 ml Q4H RESP THERAPY PRN HHN SHORTNESS OF BREATH Last administered on 09/14/18 21:38; Admin Dose 3 ML; Start 09/12/18 at 20:30 Ascorbic Acid (Vitamin C) 250 mg DAILY GTB Last administered on 09/21/18 09:24; Admin Dose 250 MG; Start 09/13/18 at 09:00 Collagenase (Santyl) 1 applic BID TOP Last administered on 09/21/18 09:27; Admin Dose 1 APPLIC; Start 09/13/18 at 09:00 Escitalopram Oxalate (Lexapro) 10 mg DAILY GTB Last administered on 09/21/18 09:24; Admin Dose 10 MG; Start 09/13/18 at 09:00 Finasteride (Proscar) 5 mg DAILY GTB Last administered on 09/21/18 09:24; Admin Dose 5 MG; Start 09/13/18 at 09:00 Acetaminophen/ Hydrocodone Bitart ([place] (5/325)) 1 tab Q6H PRN PO MODERATE PAIN LEVEL 4-6 Last administered on 09/21/18 10:04; Admin Dose 1 TAB; Start 09/12/18 at 21:30 Lorazepam (Ativan) 0.5 mg Q6H PRN GTB ANXIETY Last administered on 09/19/18 21:36; Admin Dose 0.5 MG; Start 09/12/18 at 21:30 Multivit/Ca Carb/ B Cmplx/FA/Prenat ([place]fe-[place]) 1 tab DAILY GTB Last administered on 09/21/18 09:24; Admin Dose 1 TAB; Start 09/13/18 at 09:00 Ondansetron HCl (Zofran Tab) 4 mg Q6H PRN GTB NAUSEA AND/OR VOMITING; Start 09/12/18 at 21:30 Zinc Oxide (Zinc Oxide Oint) 1 applic DAILY TOP Last administered on 09/21/18 09:26; Admin Dose 1 APPLIC; Start 09/13/18 at 09:00 Heparin Sodium (Porcine) (Heparin (1000 Units/ml)) 4,000 unit AFTER DIALYSIS CATHETER Last administered on 09/20/18 14:14; Admin Dose 4,000 UNIT; Start 09/13/18 at 16:30 Albumin Human 100 ml @ 100 mls/hr WITH DIALYSIS PRN IV SBP <90 DURING DIALYSIS Last administered on 09/20/18 11:50; Admin Dose 100 MLS/HR; Start 09/13/18 at 16:30 Sodium Chloride (NS) -To prime the dialy... DIRECTED FOR HD PRN IV HD; Start 09/13/18 at 16:30 Epoetin Tim (Epogen (Esrd)) 8,000 units TuThSa@17 SC Last administered on 09/20/18 16:19; Admin Dose 8,000 UNITS; Start 09/13/18 at 17:00 Guaifenesin/ Dextromethorphan (Robitussin Dm Liquid Cup) 5 ml Q4H PRN PO Cough Last administered on 09/18/18 05:01; Admin Dose 5 ML; Start 09/14/18 at 22:00 Vancomycin HCl (Vancomycin Oral Syringe) 125 mg Q6 PO Last administered on 09/21/18 11:59; Admin Dose 125 MG; Start 09/15/18 at 12:00 Midodrine (Proamatine) 10 mg TID@09,13,17 PO Last administered on 09/20/18 16:19; Admin Dose 10 MG; Start 09/17/18 at 13:00 Famotidine (Pepcid) 40 mg HS GTB Last administered on 09/20/18 22:00; Admin Dose 40 MG; Start 09/19/18 at 21:00 Potassium Chloride 100 ml @ 50 mls/hr Q2H IVPB Last administered on 2/24/19at 11:20; Admin Dose 50 MLS/HR; Start 09/21/18 at 11:00; Stop 09/21/18 at 14:59 Assessment/Plan Hospital Course (Demo Recall) All IMPRESSION 1. Recent urinary tract infection. 2. Significant anemia with a history of gastrointestinal bleeding. 3. Recurrent pneumonias with tracheostomy. 4. End-stage renal failure on hemodialysis. Plan: 1. Aspiration precautions. 2. Transfusion of packed red blood cells as needed. EPO, heme onc recs. 3. Gastrointestinal recs 4. Iron replacement. 5. Deep venous thrombosis and GI prophylaxis. Overall prognosis guarded consider addressing CODE STATUS. dc planning ? SPENSER RICO MD, FCCP Sep 21, 2018 12:40
--- NOTE | 2018-09-21 13:02 | CONS ---
Assessment/Plan Assessment/Plan Hospital Course (Demo Recall) ID PROGRESS NOTE CURRENT ABX: DAY # => Flagyl IV #7 + Vanco liq GT #7 s/p Ertapenem #5 24H INTERVAL SUMMARY * Awake, alert, nonverbal -- in process RUXT US r/o thrombus and he is grimacing -- cooperative; however clearly does not like the procedure. * NO OTHER NEW ISSUES: NO FEVERS, VSS, WBC stable, non-verbal, chronic encephalopathic, generalized weakness/debility * s/p HD today 500ml removed, BP runs low during HD today -- he is on Midodrine to 10mg PO TID for BP support * Patient is frail 83 yo M with chronic debility, generalized weakness, appears frail, opens eyes to verbal otherwise appears encephalopathic. Chronic * 09/14/18 CXR Mildly increased interstitial edema suggesting cardiopulmonary congestion. Small left pleural effusion increased. MICRO * 09/13/18 (+)C.DIFF * 09/12/18 (-) MRSA Nares PHYSICAL EXAMINATION: GENERAL: Afebrile, VSS, encephalopathic HEENT: AT, NC, anicteric, left nare pressure ulcer w/eschar NECK: Grossly normal (+)Trach secure to Vent CHEST: Equal chest rise bilaterally = crackles * Left chest PermCath in place, no erythema at insert site HEART: Pulse RRR ABDOMEN: Soft / ND, peg EXTREMITIES: Warm, bilateral hand edema with right hand ecchymosis from lab draw vs PIV, BLEXT edema SKIN: No rash, no diaphoresis ID ASSESSMENT 83 yo M admit with: 1. Recent urinary tract infection -on Ertapenem 2. Acute C.Diff colitis w/rectocele 3. Significant anemia with a history of gastrointestinal bleeding- no active bleeding * Hx of Erosive gastritis and also AV malformation. 4. Recurrent pneumonias with respiratory failure ->(+) tracheostomy. * Hx of Enterococcus trach site 5. End-stage renal failure on hemodialysis. 6. Pacer - with good function, 100% paced now. 7. CAD - hx of open heart surgery 8. CHF w/Abnormal electrocardiogram * 09/14/18 CXR Mildly increased interstitial edema suggesting cardiopulmonary congestion. Small left pleural effusion increased. 9. Hypertension, controlled 10 .End-stage renal disease on hemodialysis 11. Diabetes mellitus- on meds (-)MRSA Nares Screen ABX ALLERGIES: KNDA INVASIVES: PermCATH (08/14/18), Trach, Peg CURRENT ABX: DAY # => Flagyl IV #7+ Vanco liq GT #7 s/p Ertapenem #5 ID RECOMMENDATIONS/PLAN: Continue ABX Flagy + Vanco Liq for C.Diff -- at least 10 day course -- He may need longer if this is a recurrent C.Diff infection, incomplete database . Consultation Date/Type/Reason Admit Date/Time Sep 12, 2018 at 12:05 Initial Consult Date 09/13/18 Requesting Provider: RUBÉN BENITO MD Date/Time of Note DATE: 09/21/18 TIME: 13:00 Exam/Review of Systems Exam Vitals Vital Signs Date Temp Pulse Resp B/P (MAP) Pulse Ox O2 O2 Flow FiO2 Time Delivery Rate 09/21/18 60 12:55 09/21/18 98.4 20 127/62 98 12:49 (83) 09/21/18 35 11:15 09/20/18 Mechanical 14:09 Ventilator Trach Collar Intake and Output 09/20/18 09/20/18 09/21/18 1515:00 23:00 07:00 IntakeIntake Total 700 ml 680 ml OutputOutput Total 1000 ml 600 ml BalanceBalance -1000 ml 700 ml 80 ml Results Result Diagram: 09/21/1852009/21/18 0521 Results 24hrs Laboratory Tests Test 09/21/18 05:21 White Blood Count 8.9 Red Blood Count 2.06 L Hemoglobin 7.0 L Hematocrit 21.5 L Mean Corpuscular Volume 104.4 H Mean Corpuscular Hemoglobin 34.0 H Mean Corpuscular Hemoglobin Concent 32.6 Red Cell Distribution Width 26.5 H Platelet Count 68 L Mean Platelet Volume 14.2 H Immature Granulocytes % 5.200 H Neutrophils % 79.2 H Segmented Neutrophils % (Manual) 43 Band Neutrophils % (Manual) 39 H Lymphocytes % 8.9 L Lymphocytes % (Manual) 3 L Reactive Lymphocytes % (Manual) 2 H Monocytes % 6.4 Monocytes % (Manual) 11 Eosinophils % 0.2 Basophils % 0.1 Metamyelocytes % (manual) 1 H Myelocytes % (Manual) 1 H Nucleated Red Blood Cells % 5 H Immature Granulocytes # 0.460 H Neutrophils # 7.1 Neutrophils # (Manual) 4.1 Band Neutrophils # 3.4 H Lymphocytes (Manual) 0.2 L Lymphocytes # 0.8 Reactive Lymphocytes # 0.1 H Monocytes # 0.6 Monocytes # (Manual) 0.9 Eosinophils # 0.0 Basophils # 0.0 Metamyelocytes # 0.0 Myelocytes # 0.0 Nucleated Red Blood Cells # 0.4 H Platelet Estimate DECREASED Giant Platelets 4 H Polychromasia 2+ Anisocytosis 2+ Macrocytosis 2+ Tear Drop Cells 1+ Ovalocytes 1+ Sodium Level 136 Potassium Level 3.2 L Chloride Level 104 Carbon Dioxide Level 20 L Anion Gap 12 Blood Urea Nitrogen 77 H Creatinine 1.74 H Est Glomerular Filtrat Rate mL/min Glucose Level 127 Calcium Level 8.2 L Medications Medication Current Medications Albuterol/ Ipratropium (Duoneb) 3 ml Q4H RESP THERAPY PRN HHN SHORTNESS OF BREATH Last administered on 09/14/18 21:38; Admin Dose 3 ML; Start 09/12/18 at 20:30 Ascorbic Acid (Vitamin C) 250 mg DAILY GTB Last administered on 09/21/18 09:24; Admin Dose 250 MG; Start 09/13/18 at 09:00 Collagenase (Santyl) 1 applic BID TOP Last administered on 09/21/18 09:27; Admin Dose 1 APPLIC; Start 09/13/18 at 09:00 Escitalopram Oxalate (Lexapro) 10 mg DAILY GTB Last administered on 09/21/18 09:24; Admin Dose 10 MG; Start 09/13/18 at 09:00 Finasteride (Proscar) 5 mg DAILY GTB Last administered on 09/21/18 09:24; Admin Dose 5 MG; Start 09/13/18 at 09:00 Acetaminophen/ Hydrocodone Bitart ([place] (5/325)) 1 tab Q6H PRN PO MODERATE PA IN LEVEL 4-6 Last administered on 09/21/18 10:04; Admin Dose 1 TAB; Start 09/12/18 at 21:30 Lorazepam (Ativan) 0.5 mg Q6H PRN GTB ANXIETY Last administered on 09/19/18 21:36; Admin Dose 0.5 MG; Start 09/12/18 at 21:30 Multivit/Ca Carb/ B Cmplx/FA/Prenat (Ofe-Mine) 1 tab DAILY GTB Last administe red on 09/21/18 09:24; Admin Dose 1 TAB; Start 09/13/18 at 09:00 Ondansetron HCl (Zofran Tab) 4 mg Q6H PRN GTB NAUSEA AND/OR VOMITING; Start 09/12/18 at 21:30 Zinc Oxide (Zinc Oxide Oint) 1 applic DAILY TOP Last administered on 09/21/18 09:26; Admin Dose 1 APPLIC; Start 09/13/18 at 09:00 Heparin Sodium (Porcine) (Heparin (1000 Units/ml)) 4,000 unit AFTER DIALYSIS CATHETER Last administered on 09/20/18 14:14; Admin Dose 4,000 UNIT; Start 09/13/18 at 16:30 Albumin Human 100 ml @ 100 mls/hr WITH DIALYSIS PRN IV SBP <90 DURING DIALYSIS Last administered on 09/20/18 11:50; Admin Dose 100 MLS/HR; Start 09/13/18 at 16:30 Sodium Chloride (NS) -To prime the dialy... DIRECTED FOR HD PRN IV HD; Start 09/13/18 at 16:30 Epoetin Tim (Epogen (Esrd)) 8,000 units TuThSa@17 SC Last administered on 09/20/18 16:19; Admin Dose 8,000 UNITS; Start 09/13/18 at 17:00 Guaifenesin/ Dextromethorphan (Robitussin Dm Liquid Cup) 5 ml Q4H PRN PO Cough Last administered on 09/18/18 05:01; Admin Dose 5 ML; Start 09/14/18 at 22:00 Vancomycin HCl (Vancomycin Oral Syringe) 125 mg Q6 PO Last administered on 09/21/18 11:59; Admin Dose 125 MG; Start 09/15/18 at 12:00 Midodrine (Proamatine) 10 mg TID@09,13,17 PO Last administered on 09/20/18 16:19; Admin Dose 10 MG; Start 09/17/18 at 13:00 Famotidine (Pepcid) 40 mg HS GTB Last administered on 09/20/18 22:00; Admin Dose 40 MG; Start 09/19/18 at 21:00 Potassium Chloride 100 ml @ 50 mls/hr Q2H IVPB Last administered on 2/24/19at 11:20; Admin Dose 50 MLS/HR; Start 09/21/18 at 11:00; Stop 09/21/18 at 14:59 ANNE-MARIE LUNSFORD NP Sep 21, 2018 13:02
--- NOTE | 2018-09-21 13:23 | CONS ---
Assessment/Plan Assessment/Plan Assessment/Plan (Daily) AN elderly gentleman with multiple medical problems including cardiovascular heart disease, respiratory failure, kidney damage, chronic renal failure. Oncology is on case for pancytopenia - most likely that pancytopenia is mostly due to sepsis and CRI, also has macrocytosis with no nutritional deficiency. given age however cannot rule out MDS, however this can only be diagnosed by bone marrow biopsy and given his current status would not recommend that as only supportive treatment would be offered given his poor performance status - check flow cytometry, he has few immature WBCs on differential, could be reactive but flow may help determine etiology - goal is supportive: Keep hemoglobin above 7 Keep platelets above 10,000. If the platelet drops below 10,000 or the patient bleeds, transfuse 1 unit of platelets. - he has very elevated ferritin c/w anemia of chronic disease/chronic i nflammation, Cr is elevated, he is a candidate for procrit -normal B12, folate on repeat testing -has macrocytosis, SPEP shows no paraprotein spike - check haptoglobin= 218 and Aditi- pending but doubt hemolysis as bili is normal- pending -pt is on Epogen, continue at current dose # Anemia- Hgb 7.0 - PRBC transfusion ordered by PMD # Acute Hypokalemia- replace per PMD Patient seen in collaboration with Dr Coleman Consultation Date/Type/Reason Admit Date/Time Sep 12, 2018 at 12:05 pm Initial Consult Date 09/13/18 Type of Consult ONCOLOGY Reason for Consultation PANCYTOPENIA Requesting Provider: RUBÉN BENITO MD Date/Time of Note DATE: 09/21/18 TIME: 13:22 24 HR Interval Summary Free Text/Dictation seems comfortable no new issues reported last night Constitutional: requiring O2 Exam/Review of Systems Exam Vitals Vital Signs Date Temp Pulse Resp B/P (MAP) Pulse Ox O2 O2 Flow FiO2 Time Delivery Rate 09/21/18 60 12:55 09/21/18 98.4 20 127/62 98 12:49 (83) 09/21/18 35 11:15 09/20/18 Mechanical 14:09 Ventilator Trach Collar Intake and Output 09/20/18 09/20/18 09/21/18 1515:00 23:00 07:00 IntakeIntake Total 700 ml 680 ml OutputOutput Total 1000 ml 600 ml BalanceBalance -1000 ml 700 ml 80 ml Constitutional: alert, non-verbal Psych: nl mood/affect Head: normocephalic Eyes: nl lids Neck: non-tender (TRACH INTACT) Respiratory: diminished breath sounds (at bases bilaterally) Cardiovascular: nl pulses, other (s1s2) Gastrointestinal: soft, other (gt intact) Musculoskeletal: muscle weakness, range of motion Extremities: normal pulses Neurological: confused, other Lymph: nontender Results Result Diagram: 09/21/1852009/21/1821 Results 24hrs Laboratory Tests Test 09/21/18 05:21 White Blood Count 8.9 Red Blood Count 2.06 L Hemoglobin 7.0 L Hematocrit 21.5 L Mean Corpuscular Volume 104.4 H Mean Corpuscular Hemoglobin 34.0 H Mean Corpuscular Hemoglobin Concent 32.6 Red Cell Distribution Width 26.5 H Platelet Count 68 L Mean Platelet Volume 14.2 H Immature Granulocytes % 5.200 H Neutrophils % 79.2 H Segmented Neutrophils % (Manual) 43 Band Neutrophils % (Manual) 39 H Lymphocytes % 8.9 L Lymphocytes % (Manual) 3 L Reactive Lymphocytes % (Manual) 2 H Monocytes % 6.4 Monocytes % (Manual) 11 Eosinophils % 0.2 Basophils % 0.1 Metamyelocytes % (manual) 1 H Myelocytes % (Manual) 1 H Nucleated Red Blood Cells % 5 H Immature Granulocytes # 0.460 H Neutrophils # 7.1 Neutrophils # (Manual) 4.1 Band Neutrophils # 3.4 H Lymphocytes (Manual) 0.2 L Lymphocytes # 0.8 Reactive Lymphocytes # 0.1 H Monocytes # 0.6 Monocytes # (Manual) 0.9 Eosinophils # 0.0 Basophils # 0.0 Metamyelocytes # 0.0 Myelocytes # 0.0 Nucleated Red Blood Cells # 0.4 H Platelet Estimate DECREASED Giant Platelets 4 H Polychromasia 2+ Anisocytosis 2+ Macrocytosis 2+ Tear Drop Cells 1+ Ovalocytes 1+ Sodium Level 136 Potassium Level 3.2 L Chloride Level 104 Carbon Dioxide Level 20 L Anion Gap 12 Blood Urea Nitrogen 77 H Creatinine 1.74 H Est Glomerular Filtrat Rate mL/min Glucose Level 127 Calcium Level 8.2 L Medications Medication Current Medications Albuterol/ Ipratropium (Duoneb) 3 ml Q4H RESP THERAPY PRN HHN SHORTNESS OF BREATH Last administered on 09/14/18 21:38; Admin Dose 3 ML; Start 09/12/18 at 20:30 Ascorbic Acid (Vitamin C) 250 mg DAILY GTB Last administered on 09/21/18 09:24; Admin Dose 250 MG; Start 09/13/18 at 09:00 Collagenase (Santyl) 1 applic BID TOP Last administered on 09/21/18 09:27; Admin Dose 1 APPLIC; Start 09/13/18 at 09:00 Escitalopram Oxalate (Lexapro) 10 mg DAILY GTB Last administered on 09/21/18 09:24; Admin Dose 10 MG; Start 09/13/18 at 09:00 Finasteride (Proscar) 5 mg DAILY GTB Last administered on 09/21/18 09:24; Admin Dose 5 MG; Start 09/13/18 at 09:00 Acetaminophen/ Hydrocodone Bitart ([place] (5/325)) 1 tab Q6H PRN PO MODERATE PAIN LEVEL 4-6 Last administered on 09/21/18 10:04; Admin Dose 1 TAB; Start 09/12/18 at 21:30 Lorazepam (Ativan) 0.5 mg Q6H PRN GTB ANXIETY Last administered on 09/19/18 21:36; Admin Dose 0.5 MG; Start 09/12/18 at 21:30 Multivit/Ca Carb/ B Cmplx/FA/Prenat (Ofe-Mine) 1 tab DAILY GTB Last administered on 09/21/18 09:24; Admin Dose 1 TAB; Start 09/13/18 at 09:00 Ondansetron HCl (Zofran Tab) 4 mg Q6H PRN GTB NAUSEA AND/OR VOMITING; Start 09/12/18 at 21:30 Zinc Oxide (Zinc Oxide Oint) 1 applic DAILY TOP Last administered on 09/21/18 09:26; Admin Dose 1 APPLIC; Start 09/13/18 at 09:00 Heparin Sodium (Porcine) (Heparin (1000 Units/ml)) 4,000 unit AFTER DIALYSIS CATHETER Last administered on 09/20/18 14:14; Admin Dose 4,000 UNIT; Start 09/13/18 at 16:30 Albumin Human 100 ml @ 100 mls/hr WITH DIALYSIS PRN IV SBP <90 DURING DIALYSIS Last administered on 09/20/18 11:50; Admin Dose 100 MLS/HR; Start 09/13/18 at 16:30 Sodium Chloride (NS) -To prime the dialy... DIRECTED FOR HD PRN IV HD; Start 09/13/18 at 16:30 Epoetin Tim (Epogen (Esrd)) 8,000 units TuThSa@17 SC Last administered on 09/20/18 16:19; Admin Dose 8,000 UNITS; Start 09/13/18 at 17:00 Guaifenesin/ Dextromethorphan (Robitussin Dm Liquid Cup) 5 ml Q4H PRN PO Cough Last administered on 09/18/18 05:01; Admin Dose 5 ML; Start 09/14/18 at 22:00 Vancomycin HCl (Vancomycin Oral Syringe) 125 mg Q6 PO Last administered on 09/21/18 11:59; Admin Dose 125 MG; Start 09/15/18 at 12:00 Midodrine (Proamatine) 10 mg TID@09,13,17 PO Last administered on 09/20/18at 16:19; Admin Dose 10 MG; Start 09/17/18 at 13:00 Famotidine (Pepcid) 40 mg HS GTB Last administered on 09/20/18 22:00; Admin Dose 40 MG; Start 09/19/18 at 21:00 Potassium Chloride 100 ml @ 50 mls/hr Q2H IVPB Last administered on 09/21/18 11:20; Admin Dose 50 MLS/HR; Start 09/21/18 at 11:00; Stop 09/21/18 at 14:59 JENNIFER RICHARD Sep 21, 2018 13:23
--- NOTE | 2018-09-21 14:36 | CONS ---
Assessment/Plan Assessment/Plan Assessment/Plan (Daily) Assessment/Plan Assessment/Plan (Daily) 1. Pancytopenia. At this point, no evidence of active GI bleeding. Anemia of chronic disease -FOB negative, Iron panel noted. 2. Coronary artery disease status post PCI. 3. Respiratory failure. 4. Benign prostatic hypertrophy. 5. Depression. 6. Sacral decubitus ulcer. 7. End-stage renal disease on dialysis. 8. Thrombocytopenia platelet count is 40,000 in stable -per heme onc: keep platelets above 20,000, hgb above 7.0 -feel pancytopenia is due to multiple underlying disorders 9. C diff in stool PLAN: There is no evidence of active GI bleeding Start vanco PO 125mg QID x 10 days We will monitor closely for evidence of GI bleeding. Per heme onc keep plt above 20,000 and hgb above 7.0. Continue with pepcid Procrit DC Colace Consultation Date/Type/Reason Admit Date/Time Sep 12, 2018 at 12:05 Initial Consult Date 09/13/18 Requesting Provider: RUBÉN BENITO MD Date/Time of Note DATE: 09/21/18 TIME: 14:36 24 HR Interval Summary Subjective hx not possible: pt non-verbal Exam/Review of Systems Exam Vitals Vital Signs Date Temp Pulse Resp B/P (MAP) Pulse Ox O2 O2 Flow FiO2 Time Delivery Rate 09/21/18 60 21 100 35 13:10 09/21/18 98.4 127/62 12:49 (83) 09/20/18 Mechanical 14:09 Ventilator Trach Collar Intake and Output 09/20/18 09/20/18 09/21/18 1515:00 23:00 07:00 IntakeIntake Total 700 ml 680 ml OutputOutput Total 1000 ml 600 ml BalanceBalance -1000 ml 700 ml 80 ml Respiratory: diminished breath sounds Gastrointestinal: soft Neurological: unresponsive Results Result Diagram: 09/21/1852009/21/18520 Results 24hrs Laboratory Tests Test 09/21/18 05:21 White Blood Count 8.9 Red Blood Count 2.06 L Hemoglobin 7.0 L Hematocrit 21.5 L Mean Corpuscular Volume 104.4 H Mean Corpuscular Hemoglobin 34.0 H Mean Corpuscular Hemoglobin Concent 32.6 Red Cell Distribution Width 26.5 H Platelet Count 68 L Mean Platelet Volume 14.2 H Immature Granulocytes % 5.200 H Neutrophils % 79.2 H Segmented Neutrophils % (Manual) 43 Band Neutrophils % (Manual) 39 H Lymphocytes % 8.9 L Lymphocytes % (Manual) 3 L Reactive Lymphocytes % (Manual) 2 H Monocytes % 6.4 Monocytes % (Manual) 11 Eosinophils % 0.2 Basophils % 0.1 Metamyelocytes % (manual) 1 H Myelocytes % (Manual) 1 H Nucleated Red Blood Cells % 5 H Immature Granulocytes # 0.460 H Neutrophils # 7.1 Neutrophils # (Manual) 4.1 Band Neutrophils # 3.4 H Lymphocytes (Manual) 0.2 L Lymphocytes # 0.8 Reactive Lymphocytes # 0.1 H Monocytes # 0.6 Monocytes # (Manual) 0.9 Eosinophils # 0.0 Basophils # 0.0 Metamyelocytes # 0.0 Myelocytes # 0.0 Nucleated Red Blood Cells # 0.4 H Platelet Estimate DECREASED Giant Platelets 4 H Polychromasia 2+ Anisocytosis 2+ Macrocytosis 2+ Tear Drop Cells 1+ Ovalocytes 1+ Sodium Level 136 Potassium Level 3.2 L Chloride Level 104 Carbon Dioxide Level 20 L Anion Gap 12 Blood Urea Nitrogen 77 H Creatinine 1.74 H Est Glomerular Filtrat Rate mL/min Glucose Level 127 Calcium Level 8.2 L Medications Medication Current Medications Albuterol/ Ipratropium (Duoneb) 3 ml Q4H RESP THERAPY PRN HHN SHORTNESS OF BREATH Last administered on 09/14/18 21:38; Admin Dose 3 ML; Start 09/12/18 at 20:30 Ascorbic Acid (Vitamin C) 250 mg DAILY GTB Last administered on 09/21/18 09:24; Admin Dose 250 MG; Start 09/13/18 at 09:00 Collagenase (Santyl) 1 applic BID TOP Last administered on 09/21/18 09:27; Ad min Dose 1 APPLIC; Start 09/13/18 at 09:00 Escitalopram Oxalate (Lexapro) 10 mg DAILY GTB Last administered on 09/21/18 09:24; Admin Dose 10 MG; Start 09/13/18 at 09:00 Finasteride (Proscar) 5 mg DAILY GTB Last administered on 09/21/18 09:24; Admin Dose 5 MG; Start 09/13/18 at 09:00 Acetaminophen/ Hydrocodone Bitart ([place] (5/325)) 1 tab Q6H PRN PO MODERATE PAIN LEVEL 4-6 Last administered on 09/21/18 10:04; Admin Dose 1 TAB; Start 09/12/18 at 21:30 Lorazepam (Ativan) 0.5 mg Q6H PRN GTB ANXIETY Last administered on 09/19/18 21:36; Admin Dose 0.5 MG; Start 09/12/18 at 21:30 Multivit/Ca Carb/ B Cmplx/FA/Prenat (Ofe-Mine) 1 tab DAILY GTB Last administered on 09/21/18 09:24; Admin Dose 1 TAB; Start 09/13/18 at 09:00 Ondansetron HCl (Zofran Tab) 4 mg Q6H PRN GTB NAUSEA AND/OR VOMITING; Start 09/12/18 at 21:30 Zinc Oxide (Zinc Oxide Oint) 1 applic DAILY TOP Last administered on 09/21/18 09:26; Admin Dose 1 APPLIC; Start 09/13/18 at 09:00 Heparin Sodium (Porcine) (Heparin (1000 Units/ml)) 4,000 unit AFTER DIALYSIS CATHETER Last administered on 09/20/18 14:14; Admin Dose 4,000 UNIT; Start 09/13/18 at 16:30 Albumin Human 100 ml @ 100 mls/hr WITH DIALYSIS PRN IV SBP <90 DURING DIALYSIS Last administered on 09/20/18 11:50; Admin Dose 100 MLS/HR; Start 09/13/18 at 16:30 Sodium Chloride (NS) -To prime the dialy... DIRECTED FOR HD PRN IV HD; Start 09/13/18 at 16:30 Epoetin Tim (Epogen (Esrd)) 8,000 units TuThSa@17 SC Last administered on 09/20/18 16:19; Admin Dose 8,000 UNITS; Start 09/13/18 at 17:00 Guaifenesin/ Dextromethorphan (Robitussin Dm Liquid Cup) 5 ml Q4H PRN PO Cough Last administered on 09/18/18 05:01; Admin Dose 5 ML; Start 09/14/18 at 22:00 Vancomycin HCl (Vancomycin Oral Syringe) 125 mg Q6 PO Last administered on 09/21/18 11:59; Admin Dose 125 MG; Start 09/15/18 at 12:00 Midodrine (Proamatine) 10 mg TID@09,13,17 PO Last administered on 09/20/18at 16:19; Admin Dose 10 MG; Start 09/17/18 at 13:00 Famotidine (Pepcid) 40 mg HS GTB Last administered on 09/20/18at 22:00; Admin Dose 40 MG; Start 09/19/18 at 21:00 Potassium Chloride 100 ml @ 50 mls/hr Q2H IVPB Last administered on 09/21/18at 14:27; Admin Dose 50 MLS/HR; Start 09/21/18 at 11:00; Stop 09/21/18 at 14:59 JED SALAS MD Sep 21, 2018 14:36
--- NOTE | 2018-09-21 16:52 | CONS ---
Assessment/Plan Assessment/Plan Assessment/Plan (Daily) 1. acute fluid overload due to inadquate HD due to hypotension 2. Severe anemia concerned about GI bleeding 3. Hypokalemia 4. ESRD on HD on Sat, , saturday schedule at [facility] 5. h/o HTN 6. h/o HL 7. H/o Prostate CA 8. H/O Chronic respiratory failure s/p tracheostomy in place 9. iron deficiency anemia 10. Pancytopenia Plan: s/p HD yesterday 500ml removed, BP runs low during HD today continue midodrine to 10mg PO TID for BP support Epogen 8000 units SQ TTS we will keep pt on Sat, , saturday schedule- Next HD will be on saturday Hematolgoy oncology has been following for pancytopenia which thought due to sepsis will follow up Consultation Date/Type/Reason Admit Date/Time Sep 12, 2018 at 12:05 Initial Consult Date 09/13/18 Type of Consult NEPHROLOGY Requesting Provider: RUBÉN BENITO MD Date/Time of Note DATE: 09/21/18 TIME: 16:52 24 HR Interval Summary Free Text/Dictation no acute events, s/p HD yesterday, Bp stable Exam/Review of Systems Exam Vitals Vital Signs Date Temp Pulse Resp B/P (MAP) Pulse Ox O2 O2 Flow FiO2 Time Delivery Rate 09/21/18 98.2 79 18 123/68 98 15:24 (86) 09/21/18 35 15:10 09/20/18 Mechanical 14:09 Ventilator Trach Collar Intake and Output 09/20/18 09/20/18 09/21/18 1515:00 23:00 07:00 IntakeIntake Total 700 ml 680 ml OutputOutput Total 1000 ml 600 ml BalanceBalance -1000 ml 700 ml 80 ml Results Result Diagram: 09/21/1852009/21/18 05 Results 24hrs Laboratory Tests Test 09/21/18 05:21 White Blood Count 8.9 Red Blood Count 2.06 L Hemoglobin 7.0 L Hematocrit 21.5 L Mean Corpuscular Volume 104.4 H Mean Corpuscular Hemoglobin 34.0 H Mean Corpuscular Hemoglobin Concent 32.6 Red Cell Distribution Width 26.5 H Platelet Count 68 L Mean Platelet Volume 14.2 H Immature Granulocytes % 5.200 H Neutrophils % 79.2 H Segmented Neutrophils % (Manual) 43 Band Neutrophils % (Manual) 39 H Lymphocytes % 8.9 L Lymphocytes % (Manual) 3 L Reactive Lymphocytes % (Manual) 2 H Monocytes % 6.4 Monocytes % (Manual) 11 Eosinophils % 0.2 Basophils % 0.1 Metamyelocytes % (manual) 1 H Myelocytes % (Manual) 1 H Nucleated Red Blood Cells % 5 H Immature Granulocytes # 0.460 H Neutrophils # 7.1 Neutrophils # (Manual) 4.1 Band Neutrophils # 3.4 H Lymphocytes (Manual) 0.2 L Lymphocytes # 0.8 Reactive Lymphocytes # 0.1 H Monocytes # 0.6 Monocytes # (Manual) 0.9 Eosinophils # 0.0 Basophils # 0.0 Metamyelocytes # 0.0 Myelocytes # 0.0 Nucleated Red Blood Cells # 0.4 H Platelet Estimate DECREASED Giant Platelets 4 H Polychromasia 2+ Anisocytosis 2+ Macrocytosis 2+ Tear Drop Cells 1+ Ovalocytes 1+ Sodium Level 136 Potassium Level 3.2 L Chloride Level 104 Carbon Dioxide Level 20 L Anion Gap 12 Blood Urea Nitrogen 77 H Creatinine 1.74 H Est Glomerular Filtrat Rate mL/min Glucose Level 127 Calcium Level 8.2 L Medications Medication Current Medications Albuterol/ Ipratropium (Duoneb) 3 ml Q4H RESP THERAPY PRN HHN SHORTNESS OF BREATH Last administered on 09/14/18 21:38; Admin Dose 3 ML; Start 09/12/18 at 20:30 Ascorbic Acid (Vitamin C) 250 mg DAILY GTB Last administered on 09/21/18 09:24; Admin Dose 250 MG; Start 09/13/18 at 09:00 Collagenase (Santyl) 1 applic BID TOP Last administered on 09/21/18 09:27; Admin Dose 1 APPLIC; Start 09/13/18 at 09:00 Escitalopram Oxalate (Lexapro) 10 mg DAILY GTB Last administered on 09/21/18 09:24; Admin Dose 10 MG; Start 09/13/18 at 09:00 Finasteride (Proscar) 5 mg DAILY GTB Last administered on 09/21/18 09:24; Admin Dose 5 MG; Start 09/13/18 at 09:00 Acetaminophen/ Hydrocodone Bitart ([place] (5/325)) 1 tab Q6H PRN PO MODERATE PAIN LEVEL 4-6 Last administered on 09/21/18 10:04; Admin Dose 1 TAB; Start 09/12/18 at 21:30 Lorazepam (Ativan) 0.5 mg Q6H PRN GTB ANXIETY Last administered on 09/19/18 21:36; Admin Dose 0.5 MG; Start 09/12/18 at 21:30 Multivit/Ca Carb/ B Cmplx/FA/Prenat ([place]fe-Mine) 1 tab DAILY GTB Last administered on 09/21/18 09:24; Admin Dose 1 TAB; Start 09/13/18 at 09:00 Ondansetron HCl (Zofran Tab) 4 mg Q6H PRN GTB NAUSEA AND/OR VOMITING; Start 09/12/18 at 21:30 Zinc Oxide (Zinc Oxide Oint) 1 applic DAILY TOP Last administered on 09/21/18 09:26; Admin Dose 1 APPLIC; Start 09/13/18 at 09:00 Heparin Sodium (Porcine) (Heparin (1000 Units/ml)) 4,000 unit AFTER DIALYSIS CATHETER Last administered on 09/20/18 14:14; Admin Dose 4,000 UNIT; Start 09/13/18 at 16:30 Albumin Human 100 ml @ 100 mls/hr WITH DIALYSIS PRN IV SBP <90 DURING DIALYSIS Last administered on 09/20/18 11:50; Admin Dose 100 MLS/HR; Start 09/13/18 at 16:30 Sodium Chloride (NS) -To prime the dialy... DIRECTED FOR HD PRN IV HD; Start 09/13/18 at 16:30 Epoetin Tim (Epogen (Esrd)) 8,000 units TuThSa@17 SC Last administered on 09/20/18 16:19; Admin Dose 8,000 UNITS; Start 09/13/18 at 17:00 Guaifenesin/ Dextromethorphan (Robitussin Dm Liquid Cup) 5 ml Q4H PRN PO Cough Last administered on 09/18/18 05:01; Admin Dose 5 ML; Start 09/14/18 at 22:00 Vancomycin HCl (Vancomycin Oral Syringe) 125 mg Q6 PO Last administered on 09/21/18 11:59; Admin Dose 125 MG; Start 09/15/18 at 12:00 Midodrine (Proamatine) 10 mg TID@09,13,17 PO Last administered on 09/20/18at 16:19; Admin Dose 10 MG; Start 09/17/18 at 13:00 Famotidine (Pepcid) 40 mg HS GTB Last administered on 09/20/18at 22:00; Admin Dose 40 MG; Start 09/19/18 at 21:00 FELICIANO RAMIREZ MD Sep 21, 2018 16:52
[2018-09-21] MEDS: FAMOTIDINE 20 MG TAB GTB SCH (23:05)
[2018-09-22] VITALS (32 sets, daily range): BP systolic 68–135; BP diastolic 37–72; PULSE 60–89; RESP 14–33
[2018-09-22] MEDS: VANCOMYCIN HCL 250 MG/5ML POSYG PO SCH ×3 (05:00→19:36)
--- NOTE | 2018-09-22 07:21 | CONS ---
Assessment/Plan Assessment/Plan Hospital Course (Demo Recall) 83 Male 1. Pancytopenia. At this point, no evidence of active GI bleeding. -FOB negative, Iron panel noted. Second FOB positive, likely due to C diff -Heme onc does not recommend bone marrow biopsy to r/o MDS 2. Coronary artery disease status post PCI. 3. Respiratory failure. 4. Benign prostatic hypertrophy. 5. Depression. 6. Sacral decubitus ulcer. 7. End-stage renal disease on dialysis. 8. Thrombocytopenia platelet count is 40,000 in stable -per heme onc: keep platelets above 20,000, hgb above 7.0 -feel pancytopenia is due to multiple underlying disorders 9. C diff in stool PLAN: We will monitor closely for evidence of GI bleeding. Per heme onc keep plt above 20,000 and hgb above 7.0. Continue with pepcid pt examined and plan of care discussed with Dr. Hedrick Consultation Date/Type/Reason Admit Date/Time Sep 12, 2018 at 12:05 Initial Consult Date 09/13/18 Requesting Provider: RUBÉN BENITO MD Date/Time of Note DATE: 09/22/18 TIME: 07:12 24 HR Interval Summary Free Text/Dictation No acute changes overnight. Tolerating tube feeds at 40cc/hr of Novasource, goal 60. Brown and green liquid stool in rectal bag. G tube site clean and dry. Exam/Review of Systems Exam Vitals Vital Signs Date Temp Pulse Resp B/P (MAP) Pulse Ox O2 O2 Flow FiO2 Time Delivery Rate 09/22/18 60 27 100 30 04:51 09/22/18 97.8 118/72 04:00 (87) 09/20/18 Mechanical 14:09 Ventilator Trach Collar Intake and Output 09/21/18 09/21/18 09/22/18 1414:59 22:59 06:59 IntakeIntake Total 100 ml 930 ml BalanceBalance 100 ml 930 ml Constitutional: alert Psych: no complaints Head: normocephalic Eyes: PERRL ENMT: other (left nares has some old blood) Respiratory: diminished breath sounds Cardiovascular: other (v paced) Gastrointestinal: soft, non-tender, bowel sounds Results Result Diagram: 09/22/18 0454 09/21/18 0521 Results 24hrs Laboratory Tests Test 09/22/18 04:54 White Blood Count 11.3 #H Red Blood Count 2.10 L Hemoglobin 7.5 L Hematocrit 22.4 L Mean Corpuscular Volume 106.7 H Mean Corpuscular Hemoglobin 35.7 H Mean Corpuscular Hemoglobin Concent 33.5 Red Cell Distribution Width 27.5 H Platelet Count 85 #L Mean Platelet Volume 13.9 H Immature Granulocytes % 4.000 H Neutrophils % Lymphocytes % Monocytes % Eosinophils % Basophils % Nucleated Red Blood Cells % 4.5 H Immature Granulocytes # 0.450 H Neutrophils # Lymphocytes # Monocytes # Eosinophils # Basophils # Nucleated Red Blood Cells # Medications Medication Current Medications Albuterol/ Ipratropium (Duoneb) 3 ml Q4H RESP THERAPY PRN HHN SHORTNESS OF BREATH Last administered on 09/14/18 21:38; Admin Dose 3 ML; Start 09/12/18 at 20:30 Ascorbic Acid (Vitamin C) 250 mg DAILY GTB Last administered on 09/21/18 09:24; Admin Dose 250 MG; Start 09/13/18 at 09:00 Collagenase (Santyl) 1 applic BID TOP Last administered on 09/21/18 23:05; Admin Dose 1 APPLIC; Start 09/13/18 at 09:00 Escitalopram Oxalate (Lexapro) 10 mg DAILY GTB Last administered on 09/21/18 09:24; Admin Dose 10 MG; Start 09/13/18 at 09:00 Finasteride (Proscar) 5 mg DAILY GTB Last administered on 09/21/18 09:24; Admin Dose 5 MG; Start 09/13/18 at 09:00 Acetaminophen/ Hydrocodone Bitart ([place] (5/325)) 1 tab Q6H PRN PO MODERATE PAIN LEVEL 4-6 Last administered on 09/21/18 10:04; Admin Dose 1 TAB; Start 09/12/18 at 21:30 Lorazepam (Ativan) 0.5 mg Q6H PRN GTB ANXIETY Last administered on 09/19/18 21:36; Admin Dose 0.5 MG; Start 09/12/18 at 21:30 Multivit/Ca Carb/ B Cmplx/FA/Prenat (Ofe-Mine) 1 tab DAILY GTB Last administered on 09/21/18 09:24; Admin Dose 1 TAB; Start 09/13/18 at 09:00 Ondansetron HCl (Zofran Tab) 4 mg Q6H PRN GTB NAUSEA AND/OR VOMITING; Start 09/12/18 at 21:30 Zinc Oxide (Zinc Oxide Oint) 1 applic DAILY TOP Last administered on 09/21/18 09:26; Admin Dose 1 APPLIC; Start 09/13/18 at 09:00 Heparin Sodium (Porcine) (Heparin (1000 Units/ml)) 4,000 unit AFTER DIALYSIS CATHETER Last administered on 09/20/18 14:14; Admin Dose 4,000 UNIT; Start 09/13/18 at 16:30 Albumin Human 100 ml @ 100 mls/hr WITH DIALYSIS PRN IV SBP <90 DURING DIALYSIS Last administered on 09/20/18 11:50; Admin Dose 100 MLS/HR; Start 09/13/18 at 16:30 Sodium Chloride (NS) -To prime the dialy... DIRECTED FOR HD PRN IV HD; Start 09/13/18 at 16:30 Epoetin Tim (Epogen (Esrd)) 8,000 units TuThSa@17 SC Last administered on 09/20/18 16:19; Admin Dose 8,000 UNITS; Start 09/13/18 at 17:00 Guaifenesin/ Dextromethorphan (Robitussin Dm Liquid Cup) 5 ml Q4H PRN PO Cough Last administered on 09/18/18 05:01; Admin Dose 5 ML; Start 09/14/18 at 22:00 Vancomycin HCl (Vancomycin Oral Syringe) 125 mg Q6 PO Last administered on 09/22/18 05:00; Admin Dose 125 MG; Start 09/15/18 at 12:00 Midodrine (Proamatine) 10 mg TID@,,17 PO Last administered on 09/20/18 16:19; Admin Dose 10 MG; Start 09/17/18 at 13:00 Famotidine (Pepcid) 40 mg HS GTB Last administered on 09/21/18 23:05; Admin Dose 40 MG; Start 09/19/18 at 21:00 ALVARO ROBLERO Sep 22, 2018 07:21
[2018-09-22] MEDS: MIDODRINE 5 MG TAB PO SCH ×3 (09:00→19:36)
[2018-09-22] MEDS: COLLAGENASE 5 GM (UD JAR) TOP SCH (09:01)
[2018-09-22] MEDS: ESCITALOPRAM 10 MG TAB GTB SCH (09:02)
[2018-09-22] MEDS: MULTIVIT/CA CARB/B CMPLX/FA TAB GTB SCH (09:02)
[2018-09-22] MEDS: FINASTERIDE 5 MG TAB GTB SCH (09:02)
[2018-09-22] MEDS: ASCORBIC ACID 250 MG TAB GTB SCH (09:02)
[2018-09-22] MEDS: ZINC OXIDE 20% 30 GM OINT TOP SCH (09:03)
[2018-09-22] MEDS: BALSAM PERU/CASTOR OIL 60 GM TUBE TOP SCH (09:03)
--- NOTE | 2018-09-22 11:43 | CONS ---
Assessment/Plan Assessment/Plan Hospital Course (Demo Recall) IMP: 1.BRadycardia-possible miscounting by tele monitor- no recurrent jey by tele 2.PPM-v paced at 60. No signs of dysfunction 3.c diff 4.ESRD on HD 5. Resp failure-chronic s/p trach 6. Hypotension-on midodrine with improved BP Recc: -Tele -serial ecg's -Follow rhythm/rate closely -Continue flagyl/vanc -midodrine BP support as necessary only. Held again today with stable BP -HD for volume removal -albumin infusions as necessary Consultation Date/Type/Reason Admit Date/Time Sep 12, 2018 at 12:05 Initial Consult Date 09/13/18 Type of Consult Cardiology Reason for Consultation CHF Requesting Provider: RUBÉN BENITO MD Date/Time of Note DATE: 09/22/18 TIME: 11:42 Exam/Review of Systems Vital Signs Vitals Vital Signs Date Temp Pulse Resp B/P (MAP) Pulse Ox O2 O2 Flow FiO2 Time Delivery Rate 09/22/18 60 09:08 09/22/18 98.6 20 122/67 99 07:50 (85) 09/22/18 30 04:51 09/20/18 Mechanical 14:09 Ventilator Trach Collar Intake and Output 09/21/18 09/21/18 09/22/18 1515:00 23:00 07:00 IntakeIntake Total 100 ml 930 ml BalanceBalance 100 ml 930 ml Exam Exam Review of Systems: CONSTITUTIONAL: No fevers, chills. PULMONARY: trached CARDIOVASCULAR: No chest pain/palpitations GASTROINTESTINAL: No nausea/vomiting. GENITOURINARY: No hematuria/dysuria. MUSCULOSKELETAL: No myagias/arthalgias. PSYCHIATRIC: The patient denies depression. NEUROLOGIC: encephalopathy Constitutional: alert Psych: no complaints Head: normocephalic ENMT: mucosa pink and moist Neck: supple, jvd (9 cm water) Respiratory: clear to auscultation Cardiovascular: regular rate and rhythm Gastrointestinal: soft, non-tender Musculoskeletal: muscle weakness (generalized) Extremities: edema (trace/B) Neurological: confused Labs Result Diagram: 09/22/18 0454 09/22/18 0454 Results 24hrs Laboratory Tests Test 09/22/18 04:54 White Blood Count 11.3 #H Red Blood Count 2.10 L Hemoglobin 7.5 L Hematocrit 22.4 L Mean Corpuscular Volume 106.7 H Mean Corpuscular Hemoglobin 35.7 H Mean Corpuscular Hemoglobin Concent 33.5 Red Cell Distribution Width 27.5 H Platelet Count 85 #L Mean Platelet Volume 13.9 H Immature Granulocytes % 4.000 H Neutrophils % Segmented Neutrophils % (Manual) 47 Band Neutrophils % (Manual) 27 H Lymphocytes % Lymphocytes % (Manual) 8 L Reactive Lymphocytes % (Manual) 1 H Monocytes % Monocytes % (Manual) 15 H Eosinophils % Basophils % Myelocytes % (Manual) 2 H Nucleated Red Blood Cells % 4 H Immature Granulocytes # 0.450 H Neutrophils # Neutrophils # (Manual) 5.7 Band Neutrophils # 3.0 H Lymphocytes (Manual) 0.9 Lymphocytes # Reactive Lymphocytes # 0.1 H Monocytes # Monocytes # (Manual) 1.6 H Eosinophils # Basophils # Myelocytes # 0.2 H Nucleated Red Blood Cells # Platelet Estimate DECREASED Giant Platelets 3 H Platelet Morphology Comment @See below Polychromasia 2+ Poikilocytosis 1+ Anisocytosis 2+ Macrocytosis 2+ Tear Drop Cells 1+ Ovalocytes 1+ Acanthocytes 1+ Sodium Level 136 Potassium Level 4.4 Chloride Level 104 Carbon Dioxide Level 17 L Anion Gap 15 H Blood Urea Nitrogen 93 H Creatinine 2.05 H Est Glomerular Filtrat Rate mL/min Glucose Level 143 Calcium Level 8.4 Medications Medications Current Medications Albuterol/ Ipratropium (Duoneb) 3 ml Q4H RESP THERAPY PRN HHN SHORTNESS OF B REATH Last administered on 09/14/18at 21:38; Admin Dose 3 ML; Start 09/12/18 at 20:30 Ascorbic Acid (Vitamin C) 250 mg DAILY GTB Last administered on 09/22/18 09:02; Admin Dose 250 MG; Start 09/13/18 at 09:00 Collagenase (Santyl) 1 applic BID TOP Last administered on 09/22/18 09:01; Admin Dose 1 APPLIC; Start 09/13/18 at 09:00 Escitalopram Oxalate (Lexapro) 10 mg DAILY GTB Last administered on 09/22/18 09:02; Admin Dose 10 MG; Start 09/13/18 at 09:00 Finasteride (Proscar) 5 mg DAILY GTB Last administered on 09/22/18 09:02; Admin Dose 5 MG; Start 09/13/18 at 09:00 Acetaminophen/ Hydrocodone Bitart ([place] (5/325)) 1 tab Q6H PRN PO MODERATE PAIN LEVEL 4-6 Last administered on 09/21/18 10:04; Admin Dose 1 TAB; Start 09/12/18 at 21:30 Lorazepam (Ativan) 0.5 mg Q6H PRN GTB ANXIETY Last administered on 09/19/18 21:36; Admin Dose 0.5 MG; Start 09/12/18 at 21:30 Multivit/Ca Carb/ B Cmplx/FA/Prenat (Ofe-Mine) 1 tab DAILY GTB Last administered on 09/22/18 09:02; Admin Dose 1 TAB; Start 09/13/18 at 09:00 Ondansetron HCl (Zofran Tab) 4 mg Q6H PRN GTB NAUSEA AND/OR VOMITING; Start 09/12/18 at 21:30 Zinc Oxide (Zinc Oxide Oint) 1 applic DAILY TOP Last administered on 09/22/18 09:03; Admin Dose 1 APPLIC; Start 09/13/18 at 09:00 Heparin Sodium (Porcine) (Heparin (1000 Units/ml)) 4,000 unit AFTER DIALYSIS CATHETER Last administered on 09/20/18 14:14; Admin Dose 4,000 UNIT; Start 09/13/18 at 16:30 Albumin Human 100 ml @ 100 mls/hr WITH DIALYSIS PRN IV SBP <90 DURING DIALYSIS Last administered on 09/20/18 11:50; Admin Dose 100 MLS/HR; Start 09/13/18 at 16:30 Sodium Chloride (NS) -To prime the dialy... DIRECTED FOR HD PRN IV HD; Start 09/13/18 at 16:30 Epoetin Tim (Epogen (Esrd)) 8,000 units TuThSa@17 SC Last administered on 09/20/18 16:19; Admin Dose 8,000 UNITS; Start 09/13/18 at 17:00 Guaifenesin/ Dextromethorphan (Robitussin Dm Liquid Cup) 5 ml Q4H PRN PO Cough Last administered on 09/18/18 05:01; Admin Dose 5 ML; Start 09/14/18 at 22:00 Vancomycin HCl (Vancomycin Oral Syringe) 125 mg Q6 PO Last administered on 2/25/19at 05:00; Admin Dose 125 MG; Start 09/15/18 at 12:00 Midodrine (Proamatine) 10 mg TID@,,17 PO Last administered on 09/20/18at 1 6:19; Admin Dose 10 MG; Start 09/17/18 at 13:00 Famotidine (Pepcid) 40 mg HS GTB Last administered on 09/21/18at 23:05; Admin Dose 40 MG; Start 09/19/18 at 21:00 PETRA DELA CRUZ Sep 22, 2018 11:43
[2018-09-22] MEDS: HYDROCODONE/APAP (5/325) TAB PO PRN (13:32)
--- NOTE | 2018-09-22 14:18 | CONS ---
Consult Date/Type/Reason Admit Date/Time Sep 12, 2018 at 12:05 Initial Consult Date 09/13/18 Type of Consult Pulmonary Requesting Provider: RUBÉN BENITO MD Date/Time of Note DATE: 09/22/18 TIME: 14:15 Subjective Patient comfortable this morning no respiratory distress Objective Vital Signs Date Temp Pulse Resp B/P (MAP) Pulse Ox O2 O2 Flow FiO2 Time Delivery Rate 09/22/18 60 14:13 09/22/18 98.0 18 118/67 98 12:06 (84) 09/22/18 30 04:51 09/20/18 Mechanical 14:09 Ventilator Trach Collar Intake and Output 09/21/18 09/21/18 09/22/18 1515:00 23:00 07:00 IntakeIntake Total 100 ml 930 ml BalanceBalance 100 ml 930 ml Exam PHYSICAL EXAMINATION: GENERAL: Elderly-appearing gentleman on mechanical ventilation. He appears comfortable at rest, no acute distress. VITAL SIGNS: NECK: Trach site clean and intact. CARDIAC: S1, S2, no added sounds or murmurs. CHEST: Diminished air entry bilaterally. ABDOMEN: Soft, nontender. No guarding or rebound. EXTREMITIES: No cyanosis, clubbing or edema. NEUROLOGIC: Generalized weakness. Vent Setting Ventilator Support Mode: AC Fraction of Inspired Oxygen pe: 30 Positive End Expiratory Pressu: 5.0 Results/Medications Result Diagram: 09/22/18 0454 09/22/18 0454 Results 24 hrs Laboratory Tests Test 09/22/18 04:54 White Blood Count 11.3 #H Red Blood Count 2.10 L Hemoglobin 7.5 L Hematocrit 22.4 L Mean Corpuscular Volume 106.7 H Mean Corpuscular Hemoglobin 35.7 H Mean Corpuscular Hemoglobin Concent 33.5 Red Cell Distribution Width 27.5 H Platelet Count 85 #L Mean Platelet Volume 13.9 H Immature Granulocytes % 4.000 H Neutrophils % Segmented Neutrophils % (Manual) 47 Band Neutrophils % (Manual) 27 H Lymphocytes % Lymphocytes % (Manual) 8 L Reactive Lymphocytes % (Manual) 1 H Monocytes % Monocytes % (Manual) 15 H Eosinophils % Basophils % Myelocytes % (Manual) 2 H Nucleated Red Blood Cells % 4 H Immature Granulocytes # 0.450 H Neutrophils # Neutrophils # (Manual) 5.7 Band Neutrophils # 3.0 H Lymphocytes (Manual) 0.9 Lymphocytes # Reactive Lymphocytes # 0.1 H Monocytes # Monocytes # (Manual) 1.6 H Eosinophils # Basophils # Myelocytes # 0.2 H Nucleated Red Blood Cells # Platelet Estimate DECREASED Giant Platelets 3 H Platelet Morphology Comment @See below Polychromasia 2+ Poikilocytosis 1+ Anisocytosis 2+ Macrocytosis 2+ Tear Drop Cells 1+ Ovalocytes 1+ Acanthocytes 1+ Sodium Level 136 Potassium Level 4.4 Chloride Level 104 Carbon Dioxide Level 17 L Anion Gap 15 H Blood Urea Nitrogen 93 H Creatinine 2.05 H Est Glomerular Filtrat Rate mL/min Glucose Level 143 Calcium Level 8.4 Medications Current Medications Albuterol/ Ipratropium (Duoneb) 3 ml Q4H RESP THERAPY PRN HHN SHORTNESS OF BREATH Last administered on 09/14/18 21:38; Admin Dose 3 ML; Start 09/12/18 at 20:30 Ascorbic Acid (Vitamin C) 250 mg DAILY GTB Last administered on 09/22/18 09: 02; Admin Dose 250 MG; Start 09/13/18 at 09:00 Collagenase (Santyl) 1 applic BID TOP Last administered on 09/22/18 09:01; Admin Dose 1 APPLIC; Start 09/13/18 at 09:00 Escitalopram Oxalate (Lexapro) 10 mg DAILY GTB Last administered on 09/22/18 09:02; Admin Dose 10 MG; Start 09/13/18 at 09:00 Finasteride (Proscar) 5 mg DAILY GTB Last administered on 09/22/18 09:02; Admin Dose 5 MG; Start 09/13/18 at 09:00 Acetaminophen/ Hydrocodone Bitart ([place] (5/325)) 1 tab Q6H PRN PO MODERATE PAIN LEVEL 4-6 Last administered on 09/22/18 13:32; Admin Dose 1 TAB; Start 09/12/18 at 21:30 Lorazepam (Ativan) 0.5 mg Q6H PRN GTB ANXIETY Last administered on 09/19/18 21:36; Admin Dose 0.5 MG; Start 09/12/18 at 21:30 Multivit/Ca Carb/ B Cmplx/FA/Prenat (Ofe-Mine) 1 tab DAILY GTB Last administered on 09/22/18 09:02; Admin Dose 1 TAB; Start 09/13/18 at 09:00 Ondansetron HCl (Zofran Tab) 4 mg Q6H PRN GTB NAUSEA AND/OR VOMITING; Start 09/12/18 at 21:30 Zinc Oxide (Zinc Oxide Oint) 1 applic DAILY TOP Last administered on 09/22/18 09:03; Admin Dose 1 APPLIC; Start 09/13/18 at 09:00 Heparin Sodium (Porcine) (Heparin (1000 Units/ml)) 4,000 unit AFTER DIALYSIS CATHETER Last administered on 09/20/18 14:14; Admin Dose 4,000 UNIT; Start 09/13/18 at 16:30 Albumin Human 100 ml @ 100 mls/hr WITH DIALYSIS PRN IV SBP <90 DURING DIALYSIS Last administered on 09/20/18 11:50; Admin Dose 100 MLS/HR; Start 09/13/18 at 16:30 Sodium Chloride (NS) -To prime the dialy... DIRECTED FOR HD PRN IV HD; Start 09/13/18 at 16:30 Epoetin Tim (Epogen (Esrd)) 8,000 units TuThSa@17 SC Last administered on 16:19; Admin Dose 8,000 UNITS; Start 09/13/18 at 17:00 Guaifenesin/ Dextromethorphan (Robitussin Dm Liquid Cup) 5 ml Q4H PRN PO Cough Last administered on 09/18/18 05:01; Admin Dose 5 ML; Start 09/14/18 at 22:00 Vancomycin HCl (Vancomycin Oral Syringe) 125 mg Q6 PO Last administered on 13:19; Admin Dose 125 MG; Start 09/15/18 at 12:00 Midodrine (Proamatine) 10 mg TID@,13,17 PO Last administered on 09/22/18 13:20; Admin Dose 10 MG; Start 09/17/18 at 13:00 Famotidine (Pepcid) 40 mg HS GTB Last administered on 09/21/18 23:05; Admin Dose 40 MG; Start 09/19/18 at 21:00 Assessment/Plan Hospital Course (Demo Recall) All IMPRESSION 1. Recent urinary tract infection. 2. Significant anemia with a history of gastrointestinal bleeding. 3. Recurrent pneumonias with tracheostomy. 4. End-stage renal failure on hemodialysis. Plan: 1. Aspiration precautions. 2. Transfusion of packed red blood cells as needed. EPO, heme onc recs. 3. Gastrointestinal recs 4. Iron replacement. 5. Deep venous thrombosis and GI prophylaxis. dc planning ? SPENSER RICO MD, [facility] Sep 22, 2018 14:18
--- NOTE | 2018-09-22 14:47 | CONS ---
Assessment/Plan Assessment/Plan Hospital Course (Demo Recall) Patient is lying comfortably in bed, no fevers overnight still having loose stools. WBC 11.3 H&H 7.5 and 22.4 platelets 85 Indwelling: Right chest permacath, left upper extremity midline, trach, PEG, permanent pacemaker Microbiology: Stool for C. difficile positive Antimicrobials: Oral vancomycin Physical examination: Chronically ill-appearing wasted elderly man who is in no distress. Head atraumatic normocephalic neck is supple chest rise symmetrical breath sounds diminished bases. Heart: S1-S2. Abdomen soft. Bowel sounds present. Extremities with dependent edema Assessment: 1. C. difficile colitis 2. Chronic respiratory failure 3. End-stage renal disease, hemodialysis dependent 4. Diabetes 5. Coronary artery disease Plan: Patient remains stable, on appropriate antibiotic regimen Consultation Date/Type/Reason Admit Date/Time Sep 12, 2018 at 12:05 Initial Consult Date 09/13/18 Type of Consult id Requesting Provider: RUBÉN BENITO MD Date/Time of Note DATE: 09/22/18 TIME: 14:47 Exam/Review of Systems Exam Vitals Vital Signs Date Temp Pulse Resp B/P (MAP) Pulse Ox O2 O2 Flow FiO2 Time Delivery Rate 09/22/18 60 14:13 09/22/18 98.0 18 118/67 98 12:06 (84) 09/22/18 30 04:51 09/20/18 Mechanical 14:09 Ventilator Trach Collar Intake and Output 09/21/18 09/21/18 09/22/18 1515:00 23:00 07:00 IntakeIntake Total 100 ml 930 ml BalanceBalance 100 ml 930 ml Results Result Diagram: 09/22/18 0454 09/22/18 0454 Results 24hrs Laboratory Tests Test 09/22/18 04:54 White Blood Count 11.3 #H Red Blood Count 2.10 L Hemoglobin 7.5 L Hematocrit 22.4 L Mean Corpuscular Volume 106.7 H Mean Corpuscular Hemoglobin 35.7 H Mean Corpuscular Hemoglobin Concent 33.5 Red Cell Distribution Width 27.5 H Platelet Count 85 #L Mean Platelet Volume 13.9 H Immature Granulocytes % 4.000 H Neutrophils % Segmented Neutrophils % (Manual) 47 Band Neutrophils % (Manual) 27 H Lymphocytes % Lymphocytes % (Manual) 8 L Reactive Lymphocytes % (Manual) 1 H Monocytes % Monocytes % (Manual) 15 H Eosinophils % Basophils % Myelocytes % (Manual) 2 H Nucleated Red Blood Cells % 4 H Immature Granulocytes # 0.450 H Neutrophils # Neutrophils # (Manual) 5.7 Band Neutrophils # 3.0 H Lymphocytes (Manual) 0.9 Lymphocytes # Reactive Lymphocytes # 0.1 H Monocytes # Monocytes # (Manual) 1.6 H Eosinophils # Basophils # Myelocytes # 0.2 H Nucleated Red Blood Cells # Platelet Estimate DECREASED Giant Platelets 3 H Platelet Morphology Comment @See below Polychromasia 2+ Poikilocytosis 1+ Anisocytosis 2+ Macrocytosis 2+ Tear Drop Cells 1+ Ovalocytes 1+ Acanthocytes 1+ Sodium Level 136 Potassium Level 4.4 Chloride Level 104 Carbon Dioxide Level 17 L Anion Gap 15 H Blood Urea Nitrogen 93 H Creatinine 2.05 H Est Glomerular Filtrat Rate mL/min Glucose Level 143 Calcium Level 8.4 Medications Medication Current Medications Albuterol/ Ipratropium (Duoneb) 3 ml Q4H RESP THERAPY PRN HHN SHORTNESS OF BREATH Last administered on 09/14/18 21:38; Admin Dose 3 ML; Start 09/12/18 at 20:30 Ascorbic Acid (Vitamin C) 250 mg DAILY GTB Last administered on 09/22/18 09:02; Admin Dose 250 MG; Start 09/13/18 at 09:00 Collagenase (Santyl) 1 applic BID TOP Last administered on 09/22/18 09:01; Admin Dose 1 APPLIC; Start 09/13/18 at 09:00 Escitalopram Oxalate (Lexapro) 10 mg DAILY GTB Last administered on 09/22/18 09:02; Admin Dose 10 MG; Start 09/13/18 at 09:00 Finasteride (Proscar) 5 mg DAILY GTB Last administered on 09/22/18 09:02; Admin Dose 5 MG; Start 09/13/18 at 09:00 Acetaminophen/ Hydrocodone Bitart ([place] (5/325)) 1 tab Q6H PRN PO MODERATE PAIN LEVEL 4-6 Last administered on 09/22/18 13:32; Admin Dose 1 TAB; Start 09/12/18 at 21:30 Lorazepam (Ativan) 0.5 mg Q6H PRN GTB ANXIETY Last administered on 09/19/18 21:36; Admin Dose 0.5 MG; Start 09/12/18 at 21:30 Multivit/Ca Carb/ B Cmplx/FA/Prenat ([place]fe[place]) 1 tab DAILY GTB Last administered on 09/22/18 09:02; Admin Dose 1 TAB; Start 09/13/18 at 09:00 Ondansetron HCl (Zofran Tab) 4 mg Q6H PRN GTB NAUSEA AND/OR VOMITING; Start 09/12/18 at 21:30 Zinc Oxide (Zinc Oxide Oint) 1 applic DAILY TOP Last administered on 09/22/18 09:03; Admin Dose 1 APPLIC; Start 09/13/18 at 09:00 Heparin Sodium (Porcine) (Heparin (1000 Units/ml)) 4,000 unit AFTER DIALYSIS CATHETER Last administered on 09/20/18 14:14; Admin Dose 4,000 UNIT; Start at 16:30 Albumin Human 100 ml @ 100 mls/hr WITH DIALYSIS PRN IV SBP <90 DURING DIALYSIS Last administered on 09/20/18 11:50; Admin Dose 100 MLS/HR; Start 09/13/18 at 16:30 Sodium Chloride (NS) -To prime the dialy... DIRECTED FOR HD PRN IV HD; Start 09/13/18 at 16:30 Epoetin Tim (Epogen (Esrd)) 8,000 units TuThSa@17 SC Last administered on 09/20/18 16:19; Admin Dose 8,000 UNITS; Start 09/13/18 at 17:00 Guaifenesin/ Dextromethorphan (Robitussin Dm Liquid Cup) 5 ml Q4H PRN PO Cough Last administered on 09/18/18 05:01; Admin Dose 5 ML; Start 09/14/18 at 22:00 Vancomycin HCl (Vancomycin Oral Syringe) 125 mg Q6 PO Last administered on 09/22/18 13:19; Admin Dose 125 MG; Start 09/15/18 at 12:00 Midodrine (Proamatine) 10 mg TID@,13,17 PO Last administered on 09/22/18 13:20; Admin Dose 10 MG; Start 09/17/18 at 13:00 Famotidine (Pepcid) 40 mg HS GTB Last administered on 09/21/18 23:05; Admin Dose 40 MG; Start 09/19/18 at 21:00 NATALIA CARTAGENA NP Sep 22, 2018 14:47
--- NOTE | 2018-09-22 14:53 | CONS ---
Assessment/Plan Assessment/Plan Hospital Course (Demo Recall) ASSESSMENT AND PLAN: Elderly gentleman with multiple medical problems including cardiovascular heart disease, respiratory failure, kidney damage, chronic renal failure. We were asked to see for pancytopenia -most likely that pancytopenia is mostly due to sepsis and CRI, also has macrocytosis with no nutritional deficiency. given age however cannot rule out MDS, however this can only be diagnosed by bone marrow biopsy and given his current status would not recommend that as only supportive treatment would be offered given his poor performance status -ordered last week flow cytometry, he has few immature WBCs on differential, could be reactive but flow may help determine etiology -goal is supportive: Keep hemoglobin above 7 Keep platelets above 10,000. If the platelet drops below 10,000 or the patient bleeds, transfuse 1 unit of platelets. -he has very elevated ferritin c/w anemia of chronic disease/chronic inflammation, Cr is elevated, he is a candidate for procrit -normal B12 and folate on repeat testing -has macrocytosis, SPEP shows no paraprotein spike -procrit prn Consultation Date/Type/Reason Admit Date/Time Sep 12, 2018 at 12:05 Initial Consult Date 09/13/18 Requesting Provider: RUBÉN BENITO MD Date/Time of Note DATE: 09/22/18 TIME: 14:53 24 HR Interval Summary Free Text/Dictation non responsive Exam/Review of Systems Exam Vitals Vital Signs Date Temp Pulse Resp B/P (MAP) Pulse Ox O2 O2 Flow FiO2 Time Delivery Rate 09/22/18 60 14:13 09/22/18 98.0 18 118/67 98 12:06 (84) 09/22/18 30 04:51 09/20/18 Mechanical 14:09 Ventilator Trach Collar Intake and Output 09/21/18 09/21/18 09/22/18 1515:00 23:00 07:00 IntakeIntake Total 100 ml 930 ml BalanceBalance 100 ml 930 ml Constitutional: frail Head: normocephalic, atraumatic Extremities: normal pulses Results Result Diagram: 09/22/18 0454 09/22/18 0454 Results 24hrs Laboratory Tests Test 09/22/18 04:54 White Blood Count 11.3 #H Red Blood Count 2.10 L Hemoglobin 7.5 L Hematocrit 22.4 L Mean Corpuscular Volume 106.7 H Mean Corpuscular Hemoglobin 35.7 H Mean Corpuscular Hemoglobin Concent 33.5 Red Cell Distribution Width 27.5 H Platelet Count 85 #L Mean Platelet Volume 13.9 H Immature Granulocytes % 4.000 H Neutrophils % Segmented Neutrophils % (Manual) 47 Band Neutrophils % (Manual) 27 H Lymphocytes % Lymphocytes % (Manual) 8 L Reactive Lymphocytes % (Manual) 1 H Monocytes % Monocytes % (Manual) 15 H Eosinophils % Basophils % Myelocytes % (Manual) 2 H Nucleated Red Blood Cells % 4 H Immature Granulocytes # 0.450 H Neutrophils # Neutrophils # (Manual) 5.7 Band Neutrophils # 3.0 H Lymphocytes (Manual) 0.9 Lymphocytes # Reactive Lymphocytes # 0.1 H Monocytes # Monocytes # (Manual) 1.6 H Eosinophils # Basophils # Myelocytes # 0.2 H Nucleated Red Blood Cells # Platelet Estimate DECREASED Giant Platelets 3 H Platelet Morphology Comment @See below Polychromasia 2+ Poikilocytosis 1+ Anisocytosis 2+ Macrocytosis 2+ Tear Drop Cells 1+ Ovalocytes 1+ Acanthocytes 1+ Sodium Level 136 Potassium Level 4.4 Chloride Level 104 Carbon Dioxide Level 17 L Anion Gap 15 H Blood Urea Nitrogen 93 H Creatinine 2.05 H Est Glomerular Filtrat Rate mL/min Glucose Level 143 Calcium Level 8.4 Medications Medication Current Medications Albuterol/ Ipratropium (Duoneb) 3 ml Q4H RESP THERAPY PRN HHN SHORTNESS OF BREATH Last administered on 09/14/18 21:38; Admin Dose 3 ML; Start 09/12/18 at 20:30 Ascorbic Acid (Vitamin C) 250 mg DAILY GTB Last administered on 09/22/18 09:02; Admin Dose 250 MG; Start 09/13/18 at 09:00 Collagenase (Santyl) 1 applic BID TOP Last administered on 09/22/18 09:01; Admin Dose 1 APPLIC; Start 09/13/18 at 09:00 Escitalopram Oxalate (Lexapro) 10 mg DAILY GTB Last administered on 09/22/18 09:02; Admin Dose 10 MG; Start 09/13/18 at 09:00 Finasteride (Proscar) 5 mg DAILY GTB Last administered on 09/22/18 09:02; Admin Dose 5 MG; Start 09/13/18 at 09:00 Acetaminophen/ Hydrocodone Bitart ([place] (5/325)) 1 tab Q6H PRN PO MODERATE PAIN LEVEL 4-6 Last administered on 09/22/18 13:32; Admin Dose 1 TAB; Start at 21:30 Lorazepam (Ativan) 0.5 mg Q6H PRN GTB ANXIETY Last administered on 09/19/18 21:36; Admin Dose 0.5 MG; Start 09/12/18 at 21:30 Multivit/Ca Carb/ B Cmplx/FA/Prenat ([place]fe-Mine) 1 tab DAILY GTB Last administered on 09/22/18 09:02; Admin Dose 1 TAB; Start 09/13/18 at 09:00 Ondansetron HCl (Zofran Tab) 4 mg Q6H PRN GTB NAUSEA AND/OR VOMITING; Start 09/12/18 at 21:30 Zinc Oxide (Zinc Oxide Oint) 1 applic DAILY TOP Last administered on 09/22/18 09:03; Admin Dose 1 APPLIC; Start 09/13/18 at 09:00 Heparin Sodium (Porcine) (Heparin (1000 Units/ml)) 4,000 unit AFTER DIALYSIS CATHETER Last administered on 09/20/18 14:14; Admin Dose 4,000 UNIT; Start 09/13/18 at 16:30 Albumin Human 100 ml @ 100 mls/hr WITH DIALYSIS PRN IV SBP <90 DURING DIALYSIS Last administered on 09/20/18 11:50; Admin Dose 100 MLS/HR; Start 09/13/18 at 16:30 Sodium Chloride (NS) -To prime the dialy... DIRECTED FOR HD PRN IV HD; Start 09/13/18 at 16:30 Epoetin Tim (Epogen (Esrd)) 8,000 units TuThSa@17 SC Last administered on 09/20/18 16:19; Admin Dose 8,000 UNITS; Start 09/13/18 at 17:00 Guaifenesin/ Dextromethorphan (Robitussin Dm Liquid Cup) 5 ml Q4H PRN PO Cough Last administered on 09/18/18 05:01; Admin Dose 5 ML; Start 09/14/18 at 22:00 Vancomycin HCl (Vancomycin Oral Syringe) 125 mg Q6 PO Last administered on 09/22/18 13:19; Admin Dose 125 MG; Start 09/15/18 at 12:00 Midodrine (Proamatine) 10 mg TID@,13,17 PO Last administered on 09/22/18at 13:20; Admin Dose 10 MG; Start 09/17/18 at 13:00 Famotidine (Pepcid) 40 mg HS GTB Last administered on 09/21/18at 23:05; Admin Dose 40 MG; Start 09/19/18 at 21:00 IVÁN GONZALEZ Sep 22, 2018 14:53
--- NOTE | 2018-09-22 15:47 | PN ---
Date/Time of Note Date/Time of Note DATE: 09/22/18 TIME: 15:47 Assessment/Plan VTE Prophylaxis Risk score (from Ns)>0 risk: 10 SCD applied (from Ns): Yes Lines/Catheters IV Catheter Type (from Nrs): Saline Lock Assessment/Plan Assessment/Plan - hYPOKALEMIA-RESOLVED -C. difficile colitis, continue Vanco via G-tube. Dr. Rebolledo is following in infection disease consultation. -Pancytopenia, status post blood transfusion. Dr. Coleman is following him here in hematology consultation. Dr. Hedrick is following in gastroenterology consultation. 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 Continue Prevacid. -Coronary artery disease status post PCI. Patient with pancytopenia with history of recurrent gastrointestinal bleed, unfortunately cannot be giving asp irin or Plavix. -Permanent pacemaker -Ventilator dependent respiratory failure. Dr. Mendoza is following in pulmonology consultation. -Hemodialysis dependent end-stage renal disease. Continue hemodialysis. Dr. Mari is following in nephrology consultation. -Dysphagia with G-tube -Sacral decubitus. Continue local wound care. -Depression. Continue Lexapro. -History of prostate cancer Result Diagram: 09/22/18 0454 09/22/18 0454 Results 24hrs Laboratory Tests Test 09/22/18 04:54 White Blood Count 11.3 #H Red Blood Count 2.10 L Hemoglobin 7.5 L Hematocrit 22.4 L Mean Corpuscular Volume 106.7 H Mean Corpuscular Hemoglobin 35.7 H Mean Corpuscular Hemoglobin Concent 33.5 Red Cell Distribution Width 27.5 H Platelet Count 85 #L Mean Platelet Volume 13.9 H Immature Granulocytes % 4.000 H Neutrophils % Segmented Neutrophils % (Manual) 47 Band Neutrophils % (Manual) 27 H Lymphocytes % Lymphocytes % (Manual) 8 L Reactive Lymphocytes % (Manual) 1 H Monocytes % Monocytes % (Manual) 15 H Eosinophils % Basophils % Myelocytes % (Manual) 2 H Nucleated Red Blood Cells % 4 H Immature Granulocytes # 0.450 H Neutrophils # Neutrophils # (Manual) 5.7 Band Neutrophils # 3.0 H Lymphocytes (Manual) 0.9 Lymphocytes # Reactive Lymphocytes # 0.1 H Monocytes # Monocytes # (Manual) 1.6 H Eosinophils # Basophils # Myelocytes # 0.2 H Nucleated Red Blood Cells # Platelet Estimate DECREASED Giant Platelets 3 H Platelet Morphology Comment @See below Polychromasia 2+ Poikilocytosis 1+ Anisocytosis 2+ Macrocytosis 2+ Tear Drop Cells 1+ Ovalocytes 1+ Acanthocytes 1+ Sodium Level 136 Potassium Level 4.4 Chloride Level 104 Carbon Dioxide Level 17 L Anion Gap 15 H Blood Urea Nitrogen 93 H Creatinine 2.05 H Est Glomerular Filtrat Rate mL/min Glucose Level 143 Calcium Level 8.4 Exam/Review of Systems Exam Vitals Vital Signs Date Temp Pulse Resp B/P (MAP) Pulse Ox O2 O2 Flow FiO2 Time Delivery Rate 09/22/18 60 14:13 09/22/18 98.0 18 118/67 98 12:06 (84) 09/22/18 30 04:51 09/20/18 Mechanical 14:09 Ventilator Trach Collar Intake and Output 09/21/18 09/21/18 09/22/18 1515:00 23:00 07:00 IntakeIntake Total 100 ml 930 ml BalanceBalance 100 ml 930 ml Results Results 24hrs Laboratory Tests Test 09/22/18 04:54 White Blood Count 11.3 #H Red Blood Count 2.10 L Hemoglobin 7.5 L Hematocrit 22.4 L Mean Corpuscular Volume 106.7 H Mean Corpuscular Hemoglobin 35.7 H Mean Corpuscular Hemoglobin Concent 33.5 Red Cell Distribution Width 27.5 H Platelet Count 85 #L Mean Platelet Volume 13.9 H Immature Granulocytes % 4.000 H Neutrophils % Segmented Neutrophils % (Manual) 47 Band Neutrophils % (Manual) 27 H Lymphocytes % Lymphocytes % (Manual) 8 L Reactive Lymphocytes % (Manual) 1 H Monocytes % Monocytes % (Manual) 15 H Eosinophils % Basophils % Myelocytes % (Manual) 2 H Nucleated Red Blood Cells % 4 H Immature Granulocytes # 0.450 H Neutrophils # Neutrophils # (Manual) 5.7 Band Neutrophils # 3.0 H Lymphocytes (Manual) 0.9 Lymphocytes # Reactive Lymphocytes # 0.1 H Monocytes # Monocytes # (Manual) 1.6 H Eosinophils # Basophils # Myelocytes # 0.2 H Nucleated Red Blood Cells # Platelet Estimate DECREASED Giant Platelets 3 H Platelet Morphology Comment @See below Polychromasia 2+ Poikilocytosis 1+ Anisocytosis 2+ Macrocytosis 2+ Tear Drop Cells 1+ Ovalocytes 1+ Acanthocytes 1+ Sodium Level 136 Potassium Level 4.4 Chloride Level 104 Carbon Dioxide Level 17 L Anion Gap 15 H Blood Urea Nitrogen 93 H Creatinine 2.05 H Est Glomerular Filtrat Rate mL/min Glucose Level 143 Calcium Level 8.4 Medications Medication Current Medications Albuterol/ Ipratropium (Duoneb) 3 ml Q4H RESP THERAPY PRN HHN SHORTNESS OF BREATH Last administered on 09/14/18 21:38; Admin Dose 3 ML; Start 09/12/18 at 20:30 Ascorbic Acid (Vitamin C) 250 mg DAILY GTB Last administered on 09/22/18 09:02; Admin Dose 250 MG; Start 09/13/18 at 09:00 Collagenase (Santyl) 1 applic BID TOP Last administered on 09/22/18 09:01; Admin Dose 1 APPLIC; Start 09/13/18 at 09:00 Escitalopram Oxalate (Lexapro) 10 mg DAILY GTB Last administered on 09/22/18 09:02; Admin Dose 10 MG; Start 09/13/18 at 09:00 Finasteride (Proscar) 5 mg DAILY GTB Last administered on 09/22/18 09:02; Admin Dose 5 MG; Start 09/13/18 at 09:00 Acetaminophen/ Hydrocodone Bitart ([place] (5/325)) 1 tab Q6H PRN PO MODERATE PAIN LEVEL 4-6 Last administered on 09/22/18 13:32; Admin Dose 1 TAB; Start 09/12/18 at 21:30 Lorazepam (Ativan) 0.5 mg Q6H PRN GTB ANXIETY Last administered on 09/19/18 21:36; Admin Dose 0.5 MG; Start 09/12/18 at 21:30 Multivit/Ca Carb/ B Cmplx/FA/Prenat (Ofe-Mine) 1 tab DAILY GTB Last administered on 09/22/18 09:02; Admin Dose 1 TAB; Start 09/13/18 at 09:00 Ondansetron HCl (Zofran Tab) 4 mg Q6H PRN GTB NAUSEA AND/OR VOMITING; Start 09/12/18 at 21:30 Zinc Oxide (Zinc Oxide Oint) 1 applic DAILY TOP Last administered on 09/22/18 09:03; Admin Dose 1 APPLIC; Start 09/13/18 at 09:00 Heparin Sodium (Porcine) (Heparin (1000 Units/ml)) 4,000 unit AFTER DIALYSIS CATHETER Last administered on 09/20/18 14:14; Admin Dose 4,000 UNIT; Start 09/13/18 at 16:30 Albumin Human 100 ml @ 100 mls/hr WITH DIALYSIS PRN IV SBP <90 DURING DIALYSIS Last administered on 09/20/18 11:50; Admin Dose 100 MLS/HR; Start 09/13/18 at 16:30 Sodium Chloride (NS) -To prime the dialy... DIRECTED FOR HD PRN IV HD; Start 09/13/18 at 16:30 Epoetin Tim (Epogen (Esrd)) 8,000 units TuThSa@17 SC Last administered on 09/20/18 16:19; Admin Dose 8,000 UNITS; Start 09/13/18 at 17:00 Guaifenesin/ Dextromethorphan (Robitussin Dm Liquid Cup) 5 ml Q4H PRN PO Cough Last administered on 09/18/18 05:01; Admin Dose 5 ML; Start 09/14/18 at 22:00 Vancomycin HCl (Vancomycin Oral Syringe) 125 mg Q6 PO Last administered on 09/22/18 13:19; Admin Dose 125 MG; Start 09/15/18 at 12:00 Midodrine (Proamatine) 10 mg TID@,,17 PO Last administered on 09/22/18 13:20; Admin Dose 10 MG; Start 09/17/18 at 13:00 Famotidine (Pepcid) 40 mg HS GTB Last administered on 09/21/18 23:05; Admin Dose 40 MG; Start 09/19/18 at 21:00 JENNIFER RICHARD Sep 22, 2018 15:47
--- NOTE | 2018-09-22 16:28 | CONS ---
Assessment/Plan Assessment/Plan Assessment/Plan (Daily) 1. acute fluid overload due to inadquate HD due to hypotension 2. Severe anemia concerned about GI bleeding 3. Hypokalemia 4. ESRD on HD on Sat, , saturday schedule at [facility] 5. h/o HTN 6. h/o HL 7. H/o Prostate CA 8. H/O Chronic respiratory failure s/p tracheostomy in place 9. iron deficiency anemia 10.large left sided tension pneumothorax s/p Chest tube placement on 09/22/18 Plan: s/p left chest tube for pneumothorax, BP very labile, no plan for HD today, will reassess for HD in AM continue midodrine to 10mg PO TID for BP support Epogen 8000 units SQ TTS will keep pt on TTS schedule will follow up Consultation Date/Type/Reason Admit Date/Time Sep 12, 2018 at 12:05 Initial Consult Date 09/13/18 Type of Consult NEPHROLOGY Requesting Provider: RUBÉN BENITO MD Date/Time of Note DATE: 09/22/18 TIME: 16:28 24 HR Interval Summary Free Text/Dictation s/p [employer] today, CXR showed Large Left sided tension pneumothorax, BP very labile today, getting PRBC today Exam/Review of Systems Exam Vitals Vital Signs Date Temp Pulse Resp B/P (MAP) Pulse Ox O2 O2 Flow FiO2 Time Delivery Rate 09/22/18 60 14:13 09/22/18 98.0 18 118/67 98 12:06 (84) 09/22/18 30 04:51 09/20/18 Mechanical 14:09 Ventilator Trach Collar Intake and Output 09/21/18 09/21/18 09/22/18 1515:00 23:00 07:00 IntakeIntake Total 100 ml 930 ml BalanceBalance 100 ml 930 ml Exam Constitutional: non-verbal, distress ENMT: other (+ tracheostomy on venitlaotr ) Respiratory: diminished breath sounds, other (Bilateral coarse BS+), left chest tube Cardiovascular: regular rate and rhythm Gastrointestinal: soft, other ( G tube in place ) Musculoskeletal: nl extremities to inspection Neurological: other (non verbal, on ventilator ) Results Result Diagram: 09/22/18 0454 09/22/18 0454 Results 24hrs Laboratory Tests Test 09/22/18 04:54 White Blood Count 11.3 #H Red Blood Count 2.10 L Hemoglobin 7.5 L Hematocrit 22.4 L Mean Corpuscular Volume 106.7 H Mean Corpuscular Hemoglobin 35.7 H Mean Corpuscular Hemoglobin Concent 33.5 Red Cell Distribution Width 27.5 H Platelet Count 85 #L Mean Platelet Volume 13.9 H Immature Granulocytes % 4.000 H Neutrophils % Segmented Neutrophils % (Manual) 47 Band Neutrophils % (Manual) 27 H Lymphocytes % Lymphocytes % (Manual) 8 L Reactive Lymphocytes % (Manual) 1 H Monocytes % Monocytes % (Manual) 15 H Eosinophils % Basophils % Myelocytes % (Manual) 2 H Nucleated Red Blood Cells % 4 H Immature Granulocytes # 0.450 H Neutrophils # Neutrophils # (Manual) 5.7 Band Neutrophils # 3.0 H Lymphocytes (Manual) 0.9 Lymphocytes # Reactive Lymphocytes # 0.1 H Monocytes # Monocytes # (Manual) 1.6 H Eosinophils # Basophils # Myelocytes # 0.2 H Nucleated Red Blood Cells # Platelet Estimate DECREASED Giant Platelets 3 H Platelet Morphology Comment @See below Polychromasia 2+ Poikilocytosis 1+ Anisocytosis 2+ Macrocytosis 2+ Tear Drop Cells 1+ Ovalocytes 1+ Acanthocytes 1+ Sodium Level 136 Potassium Level 4.4 Chloride Level 104 Carbon Dioxide Level 17 L Anion Gap 15 H Blood Urea Nitrogen 93 H Creatinine 2.05 H Est Glomerular Filtrat Rate mL/min Glucose Level 143 Calcium Level 8.4 Medications Medication Current Medications Albuterol/ Ipratropium (Duoneb) 3 ml Q4H RESP THERAPY PRN HHN SHORTNESS OF BREATH Last administered on 09/14/18 21:38; Admin Dose 3 ML; Start 09/12/18 at 20:30 Ascorbic Acid (Vitamin C) 250 mg DAILY GTB Last administered on 09/22/18 09:02; Admin Dose 250 MG; Start 09/13/18 at 09:00 Collagenase (Santyl) 1 applic BID TOP Last administered on 09/22/18 09:01; Admin Dose 1 APPLIC; Start 09/13/18 at 09:00 Escitalopram Oxalate (Lexapro) 10 mg DAILY GTB Last administered on 09/22/18 09:02; Admin Dose 10 MG; Start 09/13/18 at 09:00 Finasteride (Proscar) 5 mg DAILY GTB Last administered on 09/22/18 09:02; Admin Dose 5 MG; Start 09/13/18 at 09:00 Acetaminophen/ Hydrocodone Bitart ([place] (5/325)) 1 tab Q6H PRN PO MODERATE PA IN LEVEL 4-6 Last administered on 09/22/18 13:32; Admin Dose 1 TAB; Start 09/12/18 at 21:30 Lorazepam (Ativan) 0.5 mg Q6H PRN GTB ANXIETY Last administered on 09/19/18 21:36; Admin Dose 0.5 MG; Start 09/12/18 at 21:30 Multivit/Ca Carb/ B Cmplx/FA/Prenat ([place]fe-Mine) 1 tab DAILY GTB Last administe red on 09/22/18 09:02; Admin Dose 1 TAB; Start 09/13/18 at 09:00 Ondansetron HCl (Zofran Tab) 4 mg Q6H PRN GTB NAUSEA AND/OR VOMITING; Start 09/12/18 at 21:30 Zinc Oxide (Zinc Oxide Oint) 1 applic DAILY TOP Last administered on 09/22/18 09:03; Admin Dose 1 APPLIC; Start 09/13/18 at 09:00 Heparin Sodium (Porcine) (Heparin (1000 Units/ml)) 4,000 unit AFTER DIALYSIS CATHETER Last administered on 09/20/18 14:14; Admin Dose 4,000 UNIT; Start 09/13/18 at 16:30 Albumin Human 100 ml @ 100 mls/hr WITH DIALYSIS PRN IV SBP <90 DURING DIALYSIS Last administered on 09/20/18 11:50; Admin Dose 100 MLS/HR; Start 09/13/18 at 16:30 Sodium Chloride (NS) -To prime the dialy... DIRECTED FOR HD PRN IV HD; Start 09/13/18 at 16:30 Epoetin Tim (Epogen (Esrd)) 8,000 units TuThSa@17 SC Last administered on 09/20/18 16:19; Admin Dose 8,000 UNITS; Start 09/13/18 at 17:00 Guaifenesin/ Dextromethorphan (Robitussin Dm Liquid Cup) 5 ml Q4H PRN PO Cough Last administered on 09/18/18 05:01; Admin Dose 5 ML; Start 09/14/18 at 22:00 Vancomycin HCl (Vancomycin Oral Syringe) 125 mg Q6 PO Last administered on 09/22/18at 13:19; Admin Dose 125 MG; Start 09/15/18 at 12:00 Midodrine (Proamatine) 10 mg TID@,13,17 PO Last administered on 09/22/18at 13:20; Admin Dose 10 MG; Start 09/17/18 at 13:00 Famotidine (Pepcid) 40 mg HS GTB Last administered on 09/21/18at 23:05; Admin Dose 40 MG; Start 09/19/18 at 21:00 FELICIANO RAMIREZ MD Sep 22, 2018 16:28
[2018-09-22] MEDS ORDERED: EPINEPHrine 0.1 MG/ML SYG ONE ×2 (18:00→20:04)
[2018-09-22] MEDS ORDERED: CA CHLORIDE 10% 10 ML SYRINGE ONE (18:00)
[2018-09-22] MEDS ORDERED: VERAPAMIL 5 MG INJ ONE (18:00)
[2018-09-22] MEDS ORDERED: morphine 2 MG INJ IV STA (18:26)
[2018-09-22] MEDS ORDERED: morphine 2 MG INJ ONE (18:29)
--- NOTE | 2018-09-22 23:07 | EN ---
Date/Time of Note Date/Time of Note DATE: 09/22/18 TIME: 23:01 ER Progress Note I was called to the patient's bedside because of a CODE BLUE. In short: Patient was admitted for renal failure and could not tolerate dialysis most recently due to hypotension. Patient is trached and nonverbal at baseline. He was being moved to the ICU due to his hypotension when he suddenly became unresponsive. General: Unresponsive Head: Normocephalic, atraumatic Eyes: Fixed and dilated pupils ENT: Moist mucous membranes Neck: Trach in place being actively bagged Respiratory: No spontaneous respiratory activity Cardiovascular: No spontaneous cardiac activity Abdominal: Soft, non-protuberant, no pulsatile mass : Deferred MSK: No spontaneous motor activity. Pitting edema in all 4 extremities Neurologic: No spontaneous neurologic activity Skin: No evidence of trauma. Mottled Cardiopulmonary Resuscitation by me: See code documentation for specific details. ACLS and BLS were performed with high quality chest compressions and minimal interruptions. Reversible causes were assessed and treated. PROCEDURE(S): Chest Tube Placement by me: Patient consented, sterilely draped, full prep, gown, glove, mask, time out performed. Location: Mid-Anterior Axillary Line, approximate 5th intercostal Device: 28 welsh chest tube Technique: Vertical incision, blunt dissection above the superior rib border, tactile confirmation Results: Bloody output from the chest tube Secured with suture and taping. No complications. Attached to waterseal. CODE BLUE events: Patient was getting CPR when I arrived. I reviewed his labs and imaging. 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 The bedside nurse told me that she tried to contact the physician on-call, but was unable to speak to anyone. Left-sided chest tube was placed by me with bloody output. Patient regained pulses and had no further cardiac arrest episodes. He was hypotensive so Levophed was started. Disposition: Admit to ICU. Defer further care to the admitting doctor. Spoke with the admitting doctor and he was notified of the situation. Diagnostic impression: Left-sided tension hemopneumothorax, cardiac arrest, circulatory shock ABIOLA CRAIG MD Sep 22, 2018 23:07
[2018-09-23] VITALS (58 sets, daily range): BP systolic 0–125; BP diastolic 0–80; PULSE 0–62; RESP 20–26
[2018-09-23] MEDS: VANCOMYCIN HCL 250 MG/5ML POSYG PO SCH ×3 (01:24→11:50)
[2018-09-23] MEDS: COLLAGENASE 5 GM (UD JAR) TOP SCH ×2 (01:24→08:12)
[2018-09-23] MEDS: FAMOTIDINE 20 MG TAB GTB SCH (01:24)
[2018-09-23] MEDS: PHENYLephrine 20MG IN 250 ML 250 ML IV SCH ×6 (02:08→08:09)
[2018-09-23] MEDS ORDERED: NA BICARBONATE 8.4% 50 ML SYG IV STA (02:18)
[2018-09-23] MEDS ORDERED: NA BICARBONATE 8.4% 50 ML SYG ONE (02:25)
[2018-09-23] MEDS ORDERED: VASOPRESSIN 60 UNIT in DEXTROSE 5% 57 ML IV SCH (02:30)
[2018-09-23] MEDS ORDERED: SOD CHLORIDE 0.9% 500 ML IV ONE (02:30)
[2018-09-23] MEDS: NORepinephrine 8MG/250 ML (PMX 250 ML IV SCH ×2 (03:32→08:12)
[2018-09-23] MEDS ORDERED: DEXTROSE 5% 1,000 ML IV SCH (06:30)
[2018-09-23] MEDS ORDERED: DEXTROSE 50% 50 ML SYRINGE IV ONE (06:30)
[2018-09-23] MEDS ORDERED: SODIUM BICARBONATE (IV ADD) 150 MEQ in DEXTROSE 5% 1,000 ML IV SCH (07:00)
--- NOTE | 2018-09-23 08:07 | CONS ---
Assessment/Plan Assessment/Plan Hospital Course (Demo Recall) 83 Male Interval hx: Pt lactic acid was elevated. Became lethargic. Brought to ICU, cardiopulm arrest at 2200. On vasopressin, levophed and phenylephrine. Liquid stool appears to be brown and dark green. No hematochezia noted. Abdomen benign. Pt appears to gasping. FiO2 85%. 1. Pancytopenia. At this point, no evidence of active GI bleeding. -FOB negative, Iron panel noted. Second FOB positive, likely due to C diff -Heme onc does not recommend bone marrow biopsy to r/o MDS, too unstable 2. Coronary artery disease status post PCI. 3. Respiratory failure. 4. Benign prostatic hypertrophy. 5. Depression. 6. Sacral decubitus ulcer. 7. End-stage renal disease on dialysis. 8. Thrombocytopenia platelet count is 40,000 in stable -per heme onc: keep platelets above 20,000, hgb above 7.0 -feel pancytopenia is due to multiple underlying disorders 9. C diff in stool 10. Sepsis 11. S/P cardiopulmonary arrest 09/22/18 PLAN: NPO except meds Continue with Vanco PO. Add flagyl IV We will monitor closely for evidence of GI bleeding. Per heme onc keep plt above 20,000 and hgb above 7.0. Continue with pepcid pt examined and plan of care discussed with Dr. Hedrick Consultation Date/Type/Reason Admit Date/Time Sep 12, 2018 at 12:05 Initial Consult Date 09/13/18 Requesting Provider: RUBÉN BENITO MD Date/Time of Note DATE: 09/23/18 TIME: 07:56 Exam/Review of Systems Exam Vitals Vital Signs Date Temp Pulse Resp B/P (MAP) Pulse Ox O2 O2 Flow FiO2 Time Delivery Rate 09/23/18 60 22 100 85 07:43 09/23/18 87/51 (63) Mechanical 05:45 Ventilator 09/23/18 96.5 04:00 Intake and Output 09/22/18 09/22/18 09/23/18 1515:00 23:00 07:00 IntakeIntake Total 680 ml 225 ml OutputOutput Total 500 ml BalanceBalance 180 ml 225 ml Results Result Diagram: 09/23/18 0505 09/23/18 0505 Results 24hrs Laboratory Tests Test 09/22/18 18:20 09/22/18 18:26 09/22/18 18:56 09/22/18 23:10 Bedside Glucose 214 Blood Gas Blood arterial Blood Specimen arterial Source Arterial Blood 09/22/2018 7:48: 09/22/2018 11:2 Date Drawn 00 PM 0:27 PM Arterial Blood 6.939 *L 7.042 *L pH (Temp corrected ) Arterial Blood 44.9 30.7 L pCO2 (Temp correct) Arterial Blood 43.2 *L 238.9 H pO2 (Temp corrected ) Arterial Blood 9.4 *L 8.2 *L HCO3 Arterial Blood -21.8 L -21.1 L Base Excess Arterial Blood 55.1 L 98.8 Oxygen Saturati on Margarito Test N/A N/A Arterial Blood Right Brachial Right Gas Brachial Puncture Site Arterial 0.3 0.2 Blood Carboxyhe moglobin Arterial Blood 0.5 0.5 Methemoglobin Blood Gas A-a 624.9 H 443.4 H O2 Differential Oxyhemoglobin 54.7 L 98.1 Percent Blood Gas 37.0 37.0 Temperature Blood Gas 14.0 14.0 Respiration Rate Blood Gas 14 20 Actual Respiration Rat e Blood Gas VENT - VC+ VENT - AC Modality FiO2 100.0 100.0 Blood Gas 0.60 Inspiratory Time Blood Gas Tidal 500.0 500.0 Volume Blood Gas Low 5.0 5.0 PEEP Setting Blood Gas Priscilla [id number] Critical Value J. RN RN Read Back Blood Gas UP Notified Whom Blood Gas 09/22/2018 8:05: 09/22/2018 11:3 Notified Time 00 PM 2:37 PM Lactic Acid 10.2 *H Level Test 09/23/18 05:00 09/23/18 05:05 Blood Gas Blood arterial Specimen Source Arterial Blood 09/23/2018 5:09: Date Drawn 24 AM Arterial Blood 7.114 *L pH (Temp corrected ) Arterial Blood 28.3 L pCO2 (Temp correct) Arterial Blood 94.0 H pO2 (Temp corrected ) Arterial Blood 8.9 *L HCO3 Arterial Blood -19.0 L Base Excess Arterial Blood 93.9 L Oxygen Saturati on Margarito Test N/A Arterial Blood A-Line Gas Puncture Site Arterial 0.3 Blood Carboxyhe moglobin Arterial Blood 0.4 Methemoglobin Blood Gas A-a 482.7 H O2 Differential Oxyhemoglobin 93.2 Percent Blood Gas 37.0 Temperature Blood Gas 22.0 Respiration Rate Blood Gas 25 Actual Respiration Rat e Blood Gas VENT - AC Modality FiO2 85.0 Blood Gas Tidal 550.0 Volume Blood Gas Low 0 PEEP Setting Blood Gas [email or web address] Critical Value Read Back Blood Gas Notified Whom Blood Gas 09/23/2018 5:23: Notified Time 33 AM White Blood 18.6 #H Count Red Blood Count 2.18 L Hemoglobin 7.6 L Hematocrit 24.0 L Mean 110.1 H Corpuscular Volume Mean 34.9 H Corpuscular Hemoglobin Mean 31.7 L Corpuscular Hemoglobin Conc ent Red Cell 26.4 H Distribution Width Platelet Count 48 #L Mean Platelet 13.4 H Volume Immature 16.200 H Granulocytes % Neutrophils % Lymphocytes % Monocytes % Eosinophils % Basophils % Nucleated Red 15.0 H Blood Cells % Immature 3.010 H Granulocytes # Neutrophils # Lymphocytes # Monocytes # Eosinophils # Basophils # Nucleated Red Blood Cells # Sodium Level 137 Potassium Level 5.4 H Chloride Level 108 Carbon Dioxide 10 #L Level Anion Gap 19 H Blood Urea 96 H Nitrogen Creatinine 2.16 H Est Glomerular Filtrat Rate mL/min Glucose Level < 20 #*L Lactic Acid 12.7 *H Level Calcium Level 7.4 L Medications Medication Current Medications Albuterol/ Ipratropium (Duoneb) 3 ml Q4H RESP THERAPY PRN HHN SHORTNESS OF BREATH Last administered on 09/14/18 21:38; Admin Dose 3 ML; Start 09/12/18 at 20:30 Ascorbic Acid (Vitamin C) 250 mg DAILY GTB Last administered on 09/22/18 09:02; Admin Dose 250 MG; Start 09/13/18 at 09:00 Collagenase (Santyl) 1 applic BID TOP Last administered on 09/23/18 01:24; Admin Dose 1 APPLIC; Start 09/13/18 at 09:00 Escitalopram Oxalate (Lexapro) 10 mg DAILY GTB Last administered on 09/22/18 09:02; Admin Dose 10 MG; Start 09/13/18 at 09:00 Finasteride (Proscar) 5 mg DAILY GTB Last administered on 09/22/18 09:02; Admin Dose 5 MG; Start 09/13/18 at 09:00 Acetaminophen/ Hydrocodone Bitart ([place] (5/325)) 1 tab Q6H PRN PO MODERATE PAIN LEVEL 4-6 Last administered on 09/22/18 13:32; Admin Dose 1 TAB; Start 09/12/18 at 21:30 Lorazepam (Ativan) 0.5 mg Q6H PRN GTB ANXIETY Last administered on 09/19/18 21:36; Admin Dose 0.5 MG; Start 09/12/18 at 21:30 Multivit/Ca Carb/ B Cmplx/FA/Prenat (Ofe-Mine) 1 tab DAILY GTB Last administered on 09/22/18 09:02; Admin Dose 1 TAB; Start 09/13/18 at 09:00 Ondansetron HCl (Zofran Tab) 4 mg Q6H PRN GTB NAUSEA AND/OR VOMITING; Start 09/12/18 at 21:30 Zinc Oxide (Zinc Oxide Oint) 1 applic DAILY TOP Last administered on 09/22/18 09:03; Admin Dose 1 APPLIC; Start 09/13/18 at 09:00 Heparin Sodium (Porcine) (Heparin (1000 Units/ml)) 4,000 unit AFTER DIALYSIS CATHETER Last administered on 09/20/18 14:14; Admin Dose 4,000 UNIT; Start 09/13/18 at 16:30 Albumin Human 100 ml @ 100 mls/hr WITH DIALYSIS PRN IV SBP <90 DURING DIALYSIS Last administered on 09/20/18 11:50; Admin Dose 100 MLS/HR; Start 09/13/18 at 16:30 Sodium Chloride (NS) -To prime the dialy... DIRECTED FOR HD PRN IV HD; Start 09/13/18 at 16:30 Epoetin Tim (Epogen (Esrd)) 8,000 units TuThSa@17 SC Last administered on 09/20/18 16:19; Admin Dose 8,000 UNITS; Start 09/13/18 at 17:00 Guaifenesin/ Dextromethorphan (Robitussin Dm Liquid Cup) 5 ml Q4H PRN PO Cough Last administered on 09/18/18 05:01; Admin Dose 5 ML; Start 09/14/18 at 22:00 Vancomycin HCl (Vancomycin Oral Syringe) 125 mg Q6 PO Last administered on 09/23/18 05:52; Admin Dose 125 MG; Start 09/15/18 at 12:00 Midodrine (Proamatine) 10 mg TID@09,13,17 PO Last administered on 09/22/18at 19:36; Admin Dose 10 MG; Start 09/17/18 at 13:00 Famotidine (Pepcid) 40 mg HS GTB Last administered on 09/23/18at 01:24; Admin Dose 40 MG; Start 09/19/18 at 21:00 Phenylephrine HCl 250 ml @ 75 mls/hr TITRATE IV Last administered on 09/23/18at 07:03; Admin Dose 225 MLS/HR; Start 09/22/18 at 23:00 Vasopressin 60 unit/Dextrose 60 ml @ 12 mls/hr Q12H IV Last administered on 09/23/18at 05:21; Admin Dose 1.2 MLS/HR; Start 09/23/18 at 02:30 Norepinephrine 250 ml @ 1.875 mls/ hr TITRATE IV Last administered on 09/23/18at 03:32; Admin Dose 56.25 MLS/HR; Start 09/23/18 at 03:00 Sodium Bicarbonate 150 meq/Dextrose 1,000 ml @ 80 mls/hr [id number] IV Last administered on 09/23/18at 06:27; Admin Dose 80 MLS/HR; Start 09/23/18 at 07:00 ALVARO ROBLERO Sep 23, 2018 08:07
--- NOTE | 2018-09-23 08:42 | CONS ---
Consult Date/Type/Reason Admit Date/Time Sep 12, 2018 at 12:05 Initial Consult Date 09/13/18 Requesting Provider: RUBÉN BENITO MD Date/Time of Note DATE: 09/23/18 TIME: 08:38 Subjective S/p CODE blue - pt on maximal amount of pressors - paced - no reasonable expectation of recovery. Plan for supportive rX - pacer with good function - primary team to address goal of care with family. Per nurse: maximal amount of BP support, full resp assist, no fever Objective Vitals Vital Signs Date Temp Pulse Resp B/P (MAP) Pulse Ox O2 O2 Flow FiO2 Time Delivery Rate 09/23/18 60 22 100 85 07:43 09/23/18 87/51 (63) Mechanical 05:45 Ventilator 09/23/18 96.5 04:00 Intake and Output 09/22/18 09/22/18 09/23/18 1515:00 23:00 07:00 IntakeIntake Total 680 ml 225 ml OutputOutput Total 500 ml BalanceBalance 180 ml 225 ml Exam General: WN/NAD, AOx 0 unresponsive HEENT: Unicetric/atraumatic/EOMI (does not follow commands) NECK: trach Lymph: no lymphadenopathy HEART: regular with no S3, II/ systolic murmur at apex - pacer LUNGS: Coarse sounds ABD: soft, NT, ND, +BS : Intact Neuro: non focal SKIN: chronic changes EXT: edema Results/Medications Result Diagram: 09/23/18 0505 09/23/18 0505 Results 24 hrs Laboratory Tests Test 09/22/18 18:20 09/22/18 18:26 09/22/18 18:56 09/22/18 23:10 Bedside Glucose 214 Blood Gas Blood Blood Specimen arterial arterial Source Arterial Blood 09/22/2018 7:48 09/22/2018 11:2 Date Drawn :00 PM 0:27 PM Arterial Blood 6.939 *L 7.042 *L pH (Temp corrected ) Arterial Blood 44.9 30.7 L pCO2 (Temp correct) Arterial Blood 43.2 *L 238.9 H pO2 (Temp corrected ) Arterial Blood 9.4 *L 8.2 *L HCO3 Arterial Blood -21.8 L -21.1 L Base Excess Arterial Blood 55.1 L 98.8 Oxygen Saturati on Margarito Test N/A N/A Arterial Blood Right Right Gas Brachial Brachial Puncture Site Arterial 0.3 0.2 Blood Carboxyhe moglobin Arterial Blood 0.5 0.5 Methemoglobin Blood Gas A-a 624.9 H 443.4 H O2 Differential Oxyhemoglobin 54.7 L 98.1 Percent Blood Gas 37.0 37.0 Temperature Blood Gas 14.0 14.0 Respiration Rate Blood Gas 14 20 Actual Respiration Rat e Blood Gas VENT - VC+ VENT - AC Modality FiO2 100.0 100.0 Blood Gas 0.60 Inspiratory Time Blood Gas Tidal 500.0 500.0 Volume Blood Gas Low 5.0 5.0 PEEP Setting Blood Gas DUPriscilla PHILLIPS [email or web address] Critical Value J. RN RN Read Back Blood Gas UP Notified Whom Blood Gas 09/22/2018 8:05 09/22/2018 11:3 Notified Time :00 PM 2:37 PM Lactic Acid 10.2 *H Level Test 09/23/18 05:00 09/23/18 05:05 09/23/18 07:00 09/23/18 07:44 Blood Gas Blood arterial Blood Specimen arterial Source Arterial Blood 09/23/2018 5:09: 09/23/2018 7:30 Date Drawn 24 AM :33 AM Arterial Blood 7.114 *L 7.073 *L pH (Temp corrected ) Arterial Blood 28.3 L 28.4 L pCO2 (Temp correct) Arterial Blood 94.0 H 118.8 H pO2 (Temp corrected ) Arterial Blood 8.9 *L 8.1 *L HCO3 Arterial Blood -19.0 L -20.3 L Base Excess Arterial Blood 93.9 L 96.2 Oxygen Saturati on Margarito Test N/A ACCEPTAB Arterial Blood A-Line Right Radial Gas Puncture Site Arterial 0.3 0.2 Blood Carboxyhe moglobin Arterial Blood 0.4 0.8 Methemoglobin Blood Gas A-a 482.7 H 457.8 H O2 Differential Oxyhemoglobin 93.2 95.2 Percent Blood Gas 37.0 37.0 Temperature Blood Gas 22.0 22.0 Respiration Rate Blood Gas 25 23 Actual Respiration Rat e Blood Gas VENT - AC VENT - AC Modality FiO2 85.0 85.0 Blood Gas Tidal 550.0 550.0 Volume Blood Gas Low 0 PEEP Setting Blood Gas [email or web address] MJACOBO RN Critical Value Read Back Blood Gas TM Notified Whom Blood Gas 09/23/2018 5:23: 09/23/2018 7:57 Notified Time 33 AM :26 AM White Blood 18.6 #H Count Red Blood Count 2.18 L Hemoglobin 7.6 L Hematocrit 24.0 L Mean 110.1 H Corpuscular Volume Mean 34.9 H Corpuscular Hemoglobin Mean 31.7 L Corpuscular Hemoglobin Conc ent Red Cell 26.4 H Distribution Width Platelet Count 48 #L Mean Platelet 13.4 H Volume Immature 16.200 H Granulocytes % Neutrophils % Lymphocytes % Monocytes % Eosinophils % Basophils % Nucleated Red 15.0 H Blood Cells % Immature 3.010 H Granulocytes # Neutrophils # Lymphocytes # Monocytes # Eosinophils # Basophils # Nucleated Red Blood Cells # Sodium Level 137 Potassium Level 5.4 H Chloride Level 108 Carbon Dioxide 10 #L Level Anion Gap 19 H Blood Urea 96 H Nitrogen Creatinine 2.16 H Est Glomerular Filtrat Rate mL/min Glucose Level < 20 #*L Lactic Acid 12.7 *H Level Calcium Level 7.4 L Bedside Glucose 86 Test 09/23/18 08:07 Bedside Glucose 70 Home Meds Reported Medications Ondansetron Hcl* (Ondansetron Hcl* Liq) 4 Mg/5 Ml Solution, 4 MG GTB Q6H PRN for NAUSEA AND/OR VOMITING, ML 09/12/18 Zinc Oxide* (Zinc Oxide*) 20%-30GM Oint, 1 APPLIC TOP DAILY, TUB 09/12/18 Ascorbic Acid* (Vitamin C*) 500 Mg Capsule.sa, 250 MG GTB DAILY, CAP 09/12/18 Multivit/Ca Carb/B Cmplx/Fa* (Ofe-Mine*) 1 Tab Tab, 1 TAB GTB DAILY, TAB 09/12/18 Protein Supplement (Promod) 946 Ml Liquid, 30 ML GTB BID 09/12/18 Sodium Chloride (Saline Nasal [place]) 30 Ml [place], 2 SPRAYS NASAL DAILY, SPRAY 09/12/18 Hydrocodone/Acetaminophen ([place] 5-325 Tablet) 1 Each Tablet, 1 EACH PO Q6 PRN for SEVERE PAIN LEVEL 7-10, TAB 09/12/18 Escitalopram Oxalate* (Lexapro*) 10 Mg Tablet, 10 MG GTB DAILY, #30 TAB 09/12/18 Ipratropium-Albuterol (Ipratropium-Albuterol) 0.5-3 Mg/3 Ml Ampul.neb, 3 ML INHALATION Q4 PRN for ELEVATED BLOOD PRESSURE, #30 VIAL 09/12/18 Hydralazine Hcl* (Hydralazine Hcl*) 10 Mg Tablet, 20 MG GTB Q4 PRN for ELEVATED BLOOD PRESSURE, #60 TAB HOLD FOR SBP<110 OR HR<60 09/12/18 Glucagon,Human Recombinant (Glucagen) 1 Mg/1 Ml Vial, 1 MG IJ DAILY, VIAL 09/12/18 Ertapenem Sodium (Invanz) 1 Gm Vial, 500 MG IM DAILY for 6 Days, VIAL START RX ON 09-11-18 TO 09-17-18 09/12/18 Lansoprazole* (Lansoprazole*) 30 Mg Capsule.dr, 30 MG GTB DAILY, CAP 08/28/18 Epoetin genesis* (Epogen*) 4,000 Unit/1 Ml Vial, 8000 UNIT SC [place]RI, VIAL 08/28/18 Lorazepam* (Lorazepam*) 1 Mg Tablet, 1 MG NGT Q6 PRN for ANXIETY, #60 TAB 08/13/18 Docusate Sodium* (Docusate Sodium* Liq) 50 Mg/5 Ml Liquid, 100 MG GTB BID, ML 08/13/18 Collagenase* (Santyl*) 30 Gm Oint..gm., 1 APPLIC TOP BID PRN for PRN, #1 TUB 08/13/18 Balsam John/Dyer Oil (Venelex Ointment) 60 Gm Oint..gm., 1 APPLIC TOP NEEDED PRN for PRN, #1 TUB 08/13/18 Allopurinol* (Allopurinol*) 100 Mg Tablet, 100 MG GTB DAILY, TAB 08/13/18 Finasteride* (Finasteride*) 5 Mg Tablet, 5 MG GTB DAILY, TAB 07/18/18 Medications Current Medications Albuterol/ Ipratropium (Duoneb) 3 ml Q4H RESP THERAPY PRN HHN SHORTNESS OF BREATH Last administered on 09/14/18at 21:38; Admin Dose 3 ML; Start 09/12/18 at 20:30 Ascorbic Acid (Vitamin C) 250 mg DAILY GTB Last administered on 09/22/18at 09:02; Admin Dose 250 MG; Start 09/13/18 at 09:00 Collagenase (Santyl) 1 applic BID TOP Last administered on 09/23/18 08:12; Admin Dose 1 APPLIC; Start 09/13/18 at 09:00 Escitalopram Oxalate (Lexapro) 10 mg DAILY GTB Last administered on 09/22/18 09:02; Admin Dose 10 MG; Start 09/13/18 at 09:00 Finasteride (Proscar) 5 mg DAILY GTB Last administered on 09/22/18 09:02; Admin Dose 5 MG; Start 09/13/18 at 09:00 Acetaminophen/ Hydrocodone Bitart ([place] (5/325)) 1 tab Q6H PRN PO MODERATE PAIN LEVEL 4-6 Last administered on 09/22/18 13:32; Admin Dose 1 TAB; Start 09/12/18 at 21:30 Lorazepam (Ativan) 0.5 mg Q6H PRN GTB ANXIETY Last administered on 09/19/18 21:36; Admin Dose 0.5 MG; Start 09/12/18 at 21:30 Multivit/Ca Carb/ B Cmplx/FA/Prenat (Ofe-Mine) 1 tab DAILY GTB Last administered on 09/22/18 09:02; Admin Dose 1 TAB; Start 09/13/18 at 09:00 Ondansetron HCl (Zofran Tab) 4 mg Q6H PRN GTB NAUSEA AND/OR VOMITING; Start 09/12/18 at 21:30 Zinc Oxide (Zinc Oxide Oint) 1 applic DAILY TOP Last administered on 09/22/18 09:03; Admin Dose 1 APPLIC; Start 09/13/18 at 09:00 Heparin Sodium (Porcine) (Heparin (1000 Units/ml)) 4,000 unit AFTER DIALYSIS CATHETER Last administered on 09/20/18 14:14; Admin Dose 4,000 UNIT; Start 09/13/18 at 16:30 Albumin Human 100 ml @ 100 mls/hr WITH DIALYSIS PRN IV SBP <90 DURING DIALYSIS Last administered on 09/20/18 11:50; Admin Dose 100 MLS/HR; Start 09/13/18 at 16:30 Sodium Chloride (NS) -To prime the dialy... DIRECTED FOR HD PRN IV HD; Start 09/13/18 at 16:30 Epoetin Genesis (Epogen (Esrd)) 8,000 units TuThSa@17 SC Last administered on 09/20/18 16:19; Admin Dose 8,000 UNITS; Start 09/13/18 at 17:00 Guaifenesin/ Dextromethorphan (Robitussin Dm Liquid Cup) 5 ml Q4H PRN PO Cough Last administered on 09/18/18 05:01; Admin Dose 5 ML; Start 09/14/18 at 22:00 Vancomycin HCl (Vancomycin Oral Syringe) 125 mg Q6 PO Last administered on 09/23/18 05:52; Admin Dose 125 MG; Start 09/15/18 at 12:00 Midodrine (Proamatine) 10 mg TID@09,13,17 PO Last administered on 09/22/18 19:36; Admin Dose 10 MG; Start 09/17/18 at 13:00 Famotidine (Pepcid) 40 mg HS GTB Last administered on 09/23/18 01:24; Admin Dose 40 MG; Start 09/19/18 at 21:00 Phenylephrine HCl 250 ml @ 75 mls/hr TITRATE IV Last administered on 09/23/18 08:09; Admin Dose 225 MLS/HR; Start 09/22/18 at 23:00 Vasopressin 60 unit/Dextrose 60 ml @ 12 mls/hr Q12H IV Last administered on 09/23/18 05:21; Admin Dose 1.2 MLS/HR; Start 09/23/18 at 02:30 Norepinephrine 250 ml @ 1.875 mls/ hr TITRATE IV Last administered on 09/23/18at 08:12; Admin Dose 56.25 MLS/HR; Start 09/23/18 at 03:00 Sodium Bicarbonate 100 meq/Dextrose/ Sodium Chloride 1,100 ml @ 100 mls/hr Q11H IV ; Start 09/23/18 at 10:30 Assessment/Plan Hospital Course (Demo Recall) 1. Pacer - with good function, 100% paced now. 2. Abnormal electrocardiogram, assess for acute coronary syndrome - max pressure support now. 3. Hypotention - doubt will tolerate HD, acidotic now, 4. History of open heart surgery - no CP now. 5. Congestive heart failure by x-ray - remove fluid as tolerated - unable to remove fluids. 6. Diabetes mellitus- on meds, keep euglycemic. NO reasonable chance for recovery expected, extremely poor prognosis. WILLIAM OJEDA MD Sep 23, 2018 08:42
[2018-09-23] MEDS: MULTIVIT/CA CARB/B CMPLX/FA TAB GTB SCH (08:43)
[2018-09-23] MEDS: FINASTERIDE 5 MG TAB GTB SCH (08:43)
[2018-09-23] MEDS: ESCITALOPRAM 10 MG TAB GTB SCH (08:43)
[2018-09-23] MEDS: ASCORBIC ACID 250 MG TAB GTB SCH (08:44)
[2018-09-23] MEDS: MIDODRINE 5 MG TAB PO SCH ×2 (08:44→12:38)
--- NOTE | 2018-09-23 08:49 | CONS ---
Assessment/Plan Assessment/Plan Assessment/Plan (Daily) 1. acute fluid overload due to inadquate HD due to hypotension 2. Severe anemia concerned about GI bleeding 3. Hypokalemia 4. ESRD on HD on Sat, , saturday schedule at [facility] [place] [facility] 5. h/o HTN 6. h/o HL 7. H/o Prostate CA 8. H/O Chronic respiratory failure s/p tracheostomy in place 9. iron deficiency anemia 10.large left sided tension pneumothorax s/p Chest tube placement on 09/22/18 Plan: BP still low on 3 pressors maxed out, Bp labile, not a candidate for HD now consider hospice care will sign off , call us if any questions Consultation Date/Type/Reason Admit Date/Time Sep 12, 2018 at 12:05 Initial Consult Date 09/13/18 Type of Consult NEPHROLOGY Requesting Provider: RUBÉN BENITO MD Date/Time of Note DATE: 09/23/18 TIME: 08:49 24 HR Interval Summary Free Text/Dictation critically ill, on 3 pressors, maxed out, BP still low Exam/Review of Systems Exam Vitals Vital Signs Date Temp Pulse Resp B/P (MAP) Pulse Ox O2 O2 Flow FiO2 Time Delivery Rate 09/23/18 60 22 100 85 07:43 09/23/18 87/51 (63) Mechanical 05:45 Ventilator 09/23/18 96.5 04:00 Intake and Output 09/22/18 09/22/18 09/23/18 1515:00 23:00 07:00 IntakeIntake Total 680 ml 225 ml OutputOutput Total 500 ml BalanceBalance 180 ml 225 ml Results Result Diagram: 09/23/18 0505 09/23/18 0505 Results 24hrs Laboratory Tests Test 09/22/18 18:20 09/22/18 18:26 09/22/18 18:56 09/22/18 23:10 Bedside Glucose 214 Blood Gas Blood Blood Specimen arterial arterial Source Arterial Blood 09/22/2018 7:48 09/22/2018 11:2 Date Drawn :00 PM 0:27 PM Arterial Blood 6.939 *L 7.042 *L pH (Temp corrected ) Arterial Blood 44.9 30.7 L pCO2 (Temp correct) Arterial Blood 43.2 *L 238.9 H pO2 (Temp corrected ) Arterial Blood 9.4 *L 8.2 *L HCO3 Arterial Blood -21.8 L -21.1 L Base Excess Arterial Blood 55.1 L 98.8 Oxygen Saturati on Margarito Test N/A N/A Arterial Blood Right Right Gas Brachial Brachial Puncture Site Arterial 0.3 0.2 Blood Carboxyhe moglobin Arterial Blood 0.5 0.5 Methemoglobin Blood Gas A-a 624.9 H 443.4 H O2 Differential Oxyhemoglobin 54.7 L 98.1 Percent Blood Gas 37.0 37.0 Temperature Blood Gas 14.0 14.0 Respiration Rate Blood Gas 14 20 Actual Respiration Rat e Blood Gas VENT - VC+ VENT - AC Modality FiO2 100.0 100.0 Blood Gas 0.60 Inspiratory Time Blood Gas Tidal 500.0 500.0 Volume Blood Gas Low 5.0 5.0 PEEP Setting Blood Gas Priscilla [id number] Critical Value Freddy RAY RN Read Back Blood Gas UP Notified Whom Blood Gas 09/22/2018 8:05 09/22/2018 11:3 Notified Time :00 PM 2:37 PM Lactic Acid 10.2 *H Level Test 09/23/18 05:00 09/23/18 05:05 09/23/18 07:00 09/23/18 07:44 Blood Gas Blood arterial Blood Specimen arterial Source Arterial Blood 09/23/2018 5:09: 09/23/2018 7:30 Date Drawn 24 AM :33 AM Arterial Blood 7.114 *L 7.073 *L pH (Temp corrected ) Arterial Blood 28.3 L 28.4 L pCO2 (Temp correct) Arterial Blood 94.0 H 118.8 H pO2 (Temp corrected ) Arterial Blood 8.9 *L 8.1 *L HCO3 Arterial Blood -19.0 L -20.3 L Base Excess Arterial Blood 93.9 L 96.2 Oxygen Saturati on Margarito Test N/A ACCEPTAB Arterial Blood A-Line Right Radial Gas Puncture Site Arterial 0.3 0.2 Blood Carboxyhe moglobin Arterial Blood 0.4 0.8 Methemoglobin Blood Gas A-a 482.7 H 457.8 H O2 Differential Oxyhemoglobin 93.2 95.2 Percent Blood Gas 37.0 37.0 Temperature Blood Gas 22.0 22.0 Respiration Rate Blood Gas 25 23 Actual Respiration Rat e Blood Gas VENT - AC VENT - AC Modality FiO2 85.0 85.0 Blood Gas Tidal 550.0 550.0 Volume Blood Gas Low 0 PEEP Setting Blood Gas [email or web address] MJDIONNABO RN Critical Value Read Back Blood Gas TM Notified Whom Blood Gas 09/23/2018 5:23: 09/23/2018 7:57 Notified Time 33 AM :26 AM White Blood 18.6 #H Count Red Blood Count 2.18 L Hemoglobin 7.6 L Hematocrit 24.0 L Mean 110.1 H Corpuscular Volume Mean 34.9 H Corpuscular Hemoglobin Mean 31.7 L Corpuscular Hemoglobin Conc ent Red Cell 26.4 H Distribution Width Platelet Count 48 #L Mean Platelet 13.4 H Volume Immature 16.200 H Granulocytes % Neutrophils % Lymphocytes % Monocytes % Eosinophils % Basophils % Nucleated Red 15.0 H Blood Cells % Immature 3.010 H Granulocytes # Neutrophils # Lymphocytes # Monocytes # Eosinophils # Basophils # Nucleated Red Blood Cells # Sodium Level 137 Potassium Level 5.4 H Chloride Level 108 Carbon Dioxide 10 #L Level Anion Gap 19 H Blood Urea 96 H Nitrogen Creatinine 2.16 H Est Glomerular Filtrat Rate mL/min Glucose Level < 20 #*L Lactic Acid 12.7 *H Level Calcium Level 7.4 L Bedside Glucose 86 Test 09/23/18 08:07 Bedside Glucose 70 Medications Medication Current Medications Albuterol/ Ipratropium (Duoneb) 3 ml Q4H RESP THERAPY PRN HHN SHORTNESS OF BREATH Last administered on 09/14/18 21:38; Admin Dose 3 ML; Start 09/12/18 at 20:30 Ascorbic Acid (Vitamin C) 250 mg DAILY GTB Last administered on 09/22/18 09:02; Admin Dose 250 MG; Start 09/13/18 at 09:00 Collagenase (Santyl) 1 applic BID TOP Last administered on 09/23/18 08:12; Admin Dose 1 APPLIC; Start 09/13/18 at 09:00 Escitalopram Oxalate (Lexapro) 10 mg DAILY GTB Last administered on 09/22/18 09:02; Admin Dose 10 MG; Start 09/13/18 at 09:00 Finasteride (Proscar) 5 mg DAILY GTB Last administered on 09/22/18 09:02; Admin Dose 5 MG; Start 09/13/18 at 09:00 Acetaminophen/ Hydrocodone Bitart ([place] (5/325)) 1 tab Q6H PRN PO MODERATE PAIN LEVEL 4-6 Last administered on 09/22/18 13:32; Admin Dose 1 TAB; Start 09/12/18 at 21:30 Lorazepam (Ativan) 0.5 mg Q6H PRN GTB ANXIETY Last administered on 09/19/18 21:36; Admin Dose 0.5 MG; Start 09/12/18 at 21:30 Multivit/Ca Carb/ B Cmplx/FA/Prenat (Ofe-Mine) 1 tab DAILY GTB Last administered on 09/22/18 09:02; Admin Dose 1 TAB; Start 09/13/18 at 09:00 Ondansetron HCl (Zofran Tab) 4 mg Q6H PRN GTB NAUSEA AND/OR VOMITING; Start 09/12/18 at 21:30 Zinc Oxide (Zinc Oxide Oint) 1 applic DAILY TOP Last administered on 09/22/18 09:03; Admin Dose 1 APPLIC; Start 09/13/18 at 09:00 Heparin Sodium (Porcine) (Heparin (1000 Units/ml)) 4,000 unit AFTER DIALYSIS CATHETER Last administered on 09/20/18 14:14; Admin Dose 4,000 UNIT; Start 09/13/18 at 16:30 Albumin Human 100 ml @ 100 mls/hr WITH DIALYSIS PRN IV SBP <90 DURING DIALYSIS Last administered on 09/20/18 11:50; Admin Dose 100 MLS/HR; Start 09/13/18 at 16:30 Sodium Chloride (NS) -To prime the dialy... DIRECTED FOR HD PRN IV HD; Start 09/13/18 at 16:30 Epoetin Tim (Epogen (Esrd)) 8,000 units TuThSa@17 SC Last administered on 09/20/18 16:19; Admin Dose 8,000 UNITS; Start 09/13/18 at 17:00 Guaifenesin/ Dextromethorphan (Robitussin Dm Liquid Cup) 5 ml Q4H PRN PO Cough Last administered on 09/18/18 05:01; Admin Dose 5 ML; Start 09/14/18 at 22:00 Vancomycin HCl (Vancomycin Oral Syringe) 125 mg Q6 PO Last administered on 09/23/18 05:52; Admin Dose 125 MG; Start 09/15/18 at 12:00 Midodrine (Proamatine) 10 mg TID@09,13,17 PO Last administered on 09/22/18at 19:36; Admin Dose 10 MG; Start 09/17/18 at 13:00 Famotidine (Pepcid) 40 mg HS GTB Last administered on 09/23/18at 01:24; Admin Dose 40 MG; Start 09/19/18 at 21:00 Vasopressin 60 unit/Dextrose 60 ml @ 12 mls/hr Q12H IV Last administered on 09/23/18at 05:21; Admin Dose 1.2 MLS/HR; Start 09/23/18 at 02:30 Sodium Bicarbonate 100 meq/Dextrose/ Sodium Chloride 1,100 ml @ 100 mls/hr Q11H IV ; Start 09/23/18 at 10:30 Norepinephrine 32 mg/Dextrose 250 ml @ 0.47 mls/hr TITRATE IV ; Start 09/23/18 at 09:00; Status UNV Phenylephrine HCl 80 mg/Dextrose 250 ml @ 18.75 mls/ hr TITRATE IV ; Start 09/23/18 at 09:00; Status UNV FELICIANO RAMIREZ MD Sep 23, 2018 08:49
[2018-09-23] MEDS: ZINC OXIDE 20% 30 GM OINT TOP SCH (09:00)
[2018-09-23] MEDS ORDERED: PHENYLephrine 20MG IN 250 ML 250 ML ONE (09:21)
[2018-09-23] MEDS ORDERED: DEXTROSE 50% 50 ML SYRINGE IV PRN ×2 (09:30)
[2018-09-23] MEDS ORDERED: PHENYLephrine 80 MG in DEXTROSE 5% 242 ML IV SCH (10:30)
[2018-09-23] MEDS ORDERED: NORepinephrine 32 MG in DEXTROSE 5% 218 ML IV SCH (10:30)
[2018-09-23] MEDS ORDERED: SODIUM BICARBONATE (IV ADD) 100 MEQ in DEXTROSE 5%-0.45% NACL 1,000 ML IV SCH (10:30)
--- NOTE | 2018-09-23 11:35 | CONS ---
Consult Date/Type/Reason Admit Date/Time Sep 12, 2018 at 12:05 Initial Consult Date 09/13/18 Type of Consult Pulmonary Requesting Provider: RUBÉN BENITO MD Date/Time of Note DATE: 09/23/18 TIME: 11:32 Subjective Cardiopulmonary arrest yesterday patient transferred to intensive care unit requiring ACLS resuscitation central line and arterial line placement multiple vasopressors. Chest tube also. Now evidence of GI bleed and refractory hypotension. Objective Vital Signs Date Temp Pulse Resp B/P (MAP) Pulse Ox O2 O2 Flow FiO2 Time Delivery Rate 09/23/18 60 22 100 85 11:04 09/23/18 91.7 91/48 (62) Mechanical 10:00 Ventilator Intake and Output 09/22/18 09/22/18 09/23/18 1515:00 23:00 07:00 IntakeIntake Total 680 ml 507.45 ml OutputOutput Total 500 ml BalanceBalance 180 ml 507.45 ml Exam PHYSICAL EXAMINATION: GENERAL: Elderly-appearing gentleman on mechanical ventilation. VITAL SIGNS: NECK: Trach site clean and intact. CARDIAC: S1, S2, no added sounds or murmurs. CHEST: Diminished air entry bilaterally. ABDOMEN: Soft, nontender. No guarding or rebound. EXTREMITIES: No cyanosis, clubbing or edema. NEUROLOGIC: Generalized weakness. Vent Setting Ventilator Support Mode: AC, VC plus Fraction of Inspired Oxygen pe: 85 Positive End Expiratory Pressu: 0.0 Results/Medications Result Diagram: 09/23/18 0505 09/23/18 0505 Results 24 hrs Laboratory Tests Test 09/22/18 18:20 09/22/18 18:26 09/22/18 18:56 09/22/18 23:10 Bedside Glucose 214 Blood Gas Blood Blood Specimen arterial arterial Source Arterial Blood 09/22/2018 7:48 09/22/2018 11:2 Date Drawn :00 PM 0:27 PM Arterial Blood 6.939 *L 7.042 *L pH (Temp corrected ) Arterial Blood 44.9 30.7 L pCO2 (Temp correct) Arterial Blood 43.2 *L 238.9 H pO2 (Temp corrected ) Arterial Blood 9.4 *L 8.2 *L HCO3 Arterial Blood -21.8 L -21.1 L Base Excess Arterial Blood 55.1 L 98.8 Oxygen Saturati on Margarito Test N/A N/A Arterial Blood Right Right Gas Brachial Brachial Puncture Site Arterial 0.3 0.2 Blood Carboxyhe moglobin Arterial Blood 0.5 0.5 Methemoglobin Blood Gas A-a 624.9 H 443.4 H O2 Differential Oxyhemoglobin 54.7 L 98.1 Percent Blood Gas 37.0 37.0 Temperature Blood Gas 14.0 14.0 Respiration Rate Blood Gas 14 20 Actual Respiration Rat e Blood Gas VENT - VC+ VENT - AC Modality FiO2 100.0 100.0 Blood Gas 0.60 Inspiratory Time Blood Gas Tidal 500.0 500.0 Volume Blood Gas Low 5.0 5.0 PEEP Setting Blood Gas Priscilla ALVAREZ [email or web address] Critical Value Freddy RAY RN Read Back Blood Gas UP Notified Whom Blood Gas 09/22/2018 8:05 09/22/2018 11:3 Notified Time :00 PM 2:37 PM Lactic Acid 10.2 *H Level Test 09/23/18 05:00 09/23/18 05:05 09/23/18 07:00 09/23/18 07:44 Blood Gas Blood arterial Blood Specimen arterial Source Arterial Blood 09/23/2018 5:09: 09/23/2018 7:30 Date Drawn 24 AM :33 AM Arterial Blood 7.114 *L 7.073 *L pH (Temp corrected ) Arterial Blood 28.3 L 28.4 L pCO2 (Temp correct) Arterial Blood 94.0 H 118.8 H pO2 (Temp corrected ) Arterial Blood 8.9 *L 8.1 *L HCO3 Arterial Blood -19.0 L -20.3 L Base Excess Arterial Blood 93.9 L 96.2 Oxygen Saturati on Margarito Test N/A ACCEPTAB Arterial Blood A-Line Right Radial Gas Puncture Site Arterial 0.3 0.2 Blood Carboxyhe moglobin Arterial Blood 0.4 0.8 Methemoglobin Blood Gas A-a 482.7 H 457.8 H O2 Differential Oxyhemoglobin 93.2 95.2 Percent Blood Gas 37.0 37.0 Temperature Blood Gas 22.0 22.0 Respiration Rate Blood Gas 25 23 Actual Respiration Rat e Blood Gas VENT - AC VENT - AC Modality FiO2 85.0 85.0 Blood Gas Tidal 550.0 550.0 Volume Blood Gas Low 0 PEEP Setting Blood Gas [email or web address] MJACOBO RN Critical Value Read Back Blood Gas TM Notified Whom Blood Gas 09/23/2018 5:23: 09/23/2018 7:57 Notified Time 33 AM :26 AM White Blood 18.6 #H Count Red Blood Count 2.18 L Hemoglobin 7.6 L Hematocrit 24.0 L Mean 110.1 H Corpuscular Volume Mean 34.9 H Corpuscular Hemoglobin Mean 31.7 L Corpuscular Hemoglobin Conc ent Red Cell 26.4 H Distribution Width Platelet Count 48 #L Mean Platelet 13.4 H Volume Immature 16.200 H Granulocytes % Neutrophils % Segmented 38 L Neutrophils % (Manual) Band 42 H Neutrophils % (Manual) Lymphocytes % Lymphocytes % 6 L (Manual) Reactive 2 H Lymphocytes % (Manual) Monocytes % Monocytes % 4 (Manual) Eosinophils % Basophils % Metamyelocytes 3 H % (manual) Myelocytes % 5 H (Manual) Nucleated Red 12 H Blood Cells % Immature 3.010 H Granulocytes # Neutrophils # Neutrophils # 8.5 H (Manual) Band 7.8 H Neutrophils # Lymphocytes 1.1 (Manual) Lymphocytes # Reactive 0.3 H Lymphocytes # Monocytes # Monocytes # 0.7 (Manual) Eosinophils # Basophils # Metamyelocytes 0.5 H # Myelocytes # 0.9 H Nucleated Red Blood Cells # Platelet SIG DECREASED Estimate Giant Platelets 3 H Polychromasia 2+ Poikilocytosis 3+ Anisocytosis 2+ Microcytosis 1+ Macrocytosis 2+ Sodium Level 137 Potassium Level 5.4 H Chloride Level 108 Carbon Dioxide 10 #L Level Anion Gap 19 H Blood Urea 96 H Nitrogen Creatinine 2.16 H Est Glomerular Filtrat Rate mL/min Glucose Level < 20 #*L Lactic Acid 12.7 *H Level Calcium Level 7.4 L Bedside Glucose 86 Test 09/23/18 08:07 09/23/18 09:07 09/23/18 09:31 09/23/18 09:47 Bedside Glucose 70 44 *L 108 132 Medications Current Medications Albuterol/ Ipratropium (Duoneb) 3 ml Q4H RESP THERAPY PRN HHN SHORTNESS OF BREATH Last administered on 09/14/18at 21:38; Admin Dose 3 ML; Start 09/12/18 at 20:30 Ascorbic Acid (Vitamin C) 250 mg DAILY GTB Last administered on 09/22/18at 09:02 ; Admin Dose 250 MG; Start 09/13/18 at 09:00 Collagenase (Santyl) 1 applic BID TOP Last administered on 09/23/18 08:12; Admin Dose 1 APPLIC; Start 09/13/18 at 09:00 Escitalopram Oxalate (Lexapro) 10 mg DAILY GTB Last administered on 09/22/18 09:02; Admin Dose 10 MG; Start 09/13/18 at 09:00 Finasteride (Proscar) 5 mg DAILY GTB Last administered on 09/22/18 09:02; Admin Dose 5 MG; Start 09/13/18 at 09:00 Acetaminophen/ Hydrocodone Bitart ([place] (5/325)) 1 tab Q6H PRN PO MODERATE PAIN LEVEL 4-6 Last administered on 09/22/18 13:32; Admin Dose 1 TAB; Start 09/12/18 at 21:30 Lorazepam (Ativan) 0.5 mg Q6H PRN GTB ANXIETY Last administered on 09/19/18 21:36; Admin Dose 0.5 MG; Start 09/12/18 at 21:30 Multivit/Ca Carb/ B Cmplx/FA/Prenat (Ofe-Mine) 1 tab DAILY GTB Last administered on 09/22/18 09:02; Admin Dose 1 TAB; Start 09/13/18 at 09:00 Ondansetron HCl (Zofran Tab) 4 mg Q6H PRN GTB NAUSEA AND/OR VOMITING; Start 09/12/18 at 21:30 Zinc Oxide (Zinc Oxide Oint) 1 applic DAILY TOP Last administered on 09/22/18 09:03; Admin Dose 1 APPLIC; Start 09/13/18 at 09:00 Heparin Sodium (Porcine) (Heparin (1000 Units/ml)) 4,000 unit AFTER DIALYSIS CATHETER Last administered on 09/20/18 14:14; Admin Dose 4,000 UNIT; Start 09/13/18 at 16:30 Albumin Human 100 ml @ 100 mls/hr WITH DIALYSIS PRN IV SBP <90 DURING DIALYSIS Last administered on 09/20/18 11:50; Admin Dose 100 MLS/HR; Start 09/13/18 at 16:30 Sodium Chloride (NS) -To prime the dialy... DIRECTED FOR HD PRN IV HD; Start 09/13/18 at 16:30 Epoetin Tim (Epogen (Esrd)) 8,000 units TuThSa@17 SC Last administered on 08/30 16:19; Admin Dose 8,000 UNITS; Start 09/13/18 at 17:00 Guaifenesin/ Dextromethorphan (Robitussin Dm Liquid Cup) 5 ml Q4H PRN PO Cough Last administered on 09/18/18 05:01; Admin Dose 5 ML; Start 09/14/18 at 22:00 Vancomycin HCl (Vancomycin Oral Syringe) 125 mg Q6 PO Last administered on 08/30 05:52; Admin Dose 125 MG; Start 09/15/18 at 12:00 Midodrine (Proamatine) 10 mg TID@09,13,17 PO Last administered on 09/22/18 19:36; Admin Dose 10 MG; Start 09/17/18 at 13:00 Famotidine (Pepcid) 40 mg HS GTB Last administered on 09/23/18 01:24; Admin Dose 40 MG; Start 09/19/18 at 21:00 Vasopressin 60 unit/Dextrose 60 ml @ 12 mls/hr Q12H IV Last administered on 09/23/18 05:21; Admin Dose 1.2 MLS/HR; Start 09/23/18 at 02:30 Sodium Bicarbonate 100 meq/Dextrose/ Sodium Chloride 1,100 ml @ 100 mls/hr Q11H IV Last administered on 09/23/18 08:57; Admin Dose 100 MLS/HR; Start 09/23/18 at 10:30 Norepinephrine 32 mg/Dextrose 250 ml @ 0.47 mls/hr TITRATE IV Last administered on 09/23/18at 10:40; Admin Dose 14.06 MLS/HR; Start 09/23/18 at 10:30 Phenylephrine HCl 80 mg/Dextrose 250 ml @ 18.75 mls/ hr TITRATE IV Last administered on 09/23/18 10:39; Admin Dose 56.25 MLS/HR; Start 09/23/18 at 10:30 Metronidazole 100 ml @ 100 mls/hr Q8 IVPB ; Start 09/23/18 at 14:00 Dextrose (D50w Syringe) 25 ml PRN PRN IV DECREASED GLUCOSE; Start 09/23/18 at 09:30 Assessment/Plan Hospital Course (Demo Recall) All IMPRESSION 1. Cardiopulmonary arrest with severe septic shock possible GI bleed. 2. Questionable GI bleed now currently requiring volume resuscitation. 3. Recurrent pneumonias with tracheostomy. 4. End-stage renal failure on hemodialysis. Plan: 1. Continue mechanical ventilation 2. Intravenous bicarbonate and multiple vasopressors 3. Renal recs very poor prognosis pmd to discuss with family goals of care recommend comfort measures. [id number] mins SPENSER RICO MD, [facility] Sep 23, 2018 11:35
[2018-09-23] MEDS: BALSAM PERU/CASTOR OIL 60 GM TUBE TOP SCH (12:35)
--- NOTE | 2018-09-23 13:14 | CONS ---
Assessment/Plan Assessment/Plan Hospital Course (Demo Recall) Patient was transferred to ICU status post cardiac arrest last night with prolonged CPR and ACLS protocol, currently on multiple vasopressor support hypotensive, hypothermic and unresponsive. Indwelling: Right chest permacath, left upper extremity midline, trach, PEG, permanent pacemaker, left radial A-line, femoral triple-lumen catheter Microbiology: Stool for C. difficile positive Antimicrobials: Flagyl Physical examination: Chronically ill-appearing wasted elderly man in no distress. Head atraumatic normocephalic neck is supple chest rise symmetrical breath sounds diminished bases. Heart: S1-S2. Abdomen soft. Bowel sounds present. Extremities mottled, cyanotic Assessment: 1. Status post cardiac arrest 2. Shock with multisystem organ failure 3. C. difficile colitis 4. Chronic respiratory failure 5. End-stage renal disease, hemodialysis dependent 6. Diabetes 7. Coronary artery disease 8. Encephalopathy, likely anoxic Plan: Doing poorly, will start him on broad-spectrum antibiotics. Consultation Date/Type/Reason Admit Date/Time Sep 12, 2018 at 12:05 Initial Consult Date 09/13/18 Type of Consult id Requesting Provider: RUBÉN BENITO MD Date/Time of Note DATE: 09/23/18 TIME: 13:10 Exam/Review of Systems Exam Vitals Vital Signs Date Temp Pulse Resp B/P (MAP) Pulse Ox O2 O2 Flow FiO2 Time Delivery Rate 09/23/18 60 12:00 09/23/18 22 116/49 100 11:45 (71) 09/23/18 92.0 11:15 09/23/18 85 11:04 09/23/18 Mechanical 11:00 Ventilator Intake and Output 09/22/18 09/22/18 09/23/18 1515:00 23:00 07:00 IntakeIntake Total 680 ml 507.45 ml OutputOutput Total 500 ml BalanceBalance 180 ml 507.45 ml Results Result Diagram: 09/23/18 0505 09/23/18 0505 Results 24hrs Laboratory Tests Test 09/22/18 18:20 09/22/18 18:26 09/22/18 18:56 09/22/18 23:10 Bedside Glucose 214 Blood Gas Blood Blood Specimen arterial arterial Source Arterial Blood 09/22/2018 7:48 09/22/2018 11:2 Date Drawn :00 PM 0:27 PM Arterial Blood 6.939 *L 7.042 *L pH (Temp corrected ) Arterial Blood 44.9 30.7 L pCO2 (Temp correct) Arterial Blood 43.2 *L 238.9 H pO2 (Temp corrected ) Arterial Blood 9.4 *L 8.2 *L HCO3 Arterial Blood -21.8 L -21.1 L Base Excess Arterial Blood 55.1 L 98.8 Oxygen Saturati on Margarito Test N/A N/A Arterial Blood Right Right Gas Brachial Brachial Puncture Site Arterial 0.3 0.2 Blood Carboxyhe moglobin Arterial Blood 0.5 0.5 Methemoglobin Blood Gas A-a 624.9 H 443.4 H O2 Differential Oxyhemoglobin 54.7 L 98.1 Percent Blood Gas 37.0 37.0 Temperature Blood Gas 14.0 14.0 Respiration Rate Blood Gas 14 20 Actual Respiration Rat e Blood Gas VENT - VC+ VENT - AC Modality FiO2 100.0 100.0 Blood Gas 0.60 Inspiratory Time Blood Gas Tidal 500.0 500.0 Volume Blood Gas Low 5.0 5.0 PEEP Setting Blood Gas Priscilla [id number] Critical Value J. RN RN Read Back Blood Gas UP Notified Whom Blood Gas 09/22/2018 8:05 09/22/2018 11:3 Notified Time :00 PM 2:37 PM Lactic Acid 10.2 *H Level Test 09/23/18 05:00 09/23/18 05:05 09/23/18 07:00 09/23/18 07:44 Blood Gas Blood arterial Blood Specimen arterial Source Arterial Blood 09/23/2018 5:09: 09/23/2018 7:30 Date Drawn 24 AM :33 AM Arterial Blood 7.114 *L 7.073 *L pH (Temp corrected ) Arterial Blood 28.3 L 28.4 L pCO2 (Temp correct) Arterial Blood 94.0 H 118.8 H pO2 (Temp corrected ) Arterial Blood 8.9 *L 8.1 *L HCO3 Arterial Blood -19.0 L -20.3 L Base Excess Arterial Blood 93.9 L 96.2 Oxygen Saturati on Margarito Test N/A ACCEPTAB Arterial Blood A-Line Right Radial Gas Puncture Site Arterial 0.3 0.2 Blood Carboxyhe moglobin Arterial Blood 0.4 0.8 Methemoglobin Blood Gas A-a 482.7 H 457.8 H O2 Differential Oxyhemoglobin 93.2 95.2 Percent Blood Gas 37.0 37.0 Temperature Blood Gas 22.0 22.0 Respiration Rate Blood Gas 25 23 Actual Respiration Rat e Blood Gas VENT - AC VENT - AC Modality FiO2 85.0 85.0 Blood Gas Tidal 550.0 550.0 Volume Blood Gas Low 0 PEEP Setting Blood Gas [id number] MJACOBO RN Critical Value Read Back Blood Gas TM Notified Whom Blood Gas 09/23/2018 5:23: 09/23/2018 7:57 Notified Time 33 AM :26 AM White Blood 18.6 #H Count Red Blood Count 2.18 L Hemoglobin 7.6 L Hematocrit 24.0 L Mean 110.1 H Corpuscular Volume Mean 34.9 H Corpuscular Hemoglobin Mean 31.7 L Corpuscular Hemoglobin Conc ent Red Cell 26.4 H Distribution Width Platelet Count 48 #L Mean Platelet 13.4 H Volume Immature 16.200 H Granulocytes % Neutrophils % Segmented 38 L Neutrophils % (Manual) Band 42 H Neutrophils % (Manual) Lymphocytes % Lymphocytes % 6 L (Manual) Reactive 2 H Lymphocytes % (Manual) Monocytes % Monocytes % 4 (Manual) Eosinophils % Basophils % Metamyelocytes 3 H % (manual) Myelocytes % 5 H (Manual) Nucleated Red 12 H Blood Cells % Immature 3.010 H Granulocytes # Neutrophils # Neutrophils # 8.5 H (Manual) Band 7.8 H Neutrophils # Lymphocytes 1.1 (Manual) Lymphocytes # Reactive 0.3 H Lymphocytes # Monocytes # Monocytes # 0.7 (Manual) Eosinophils # Basophils # Metamyelocytes 0.5 H # Myelocytes # 0.9 H Nucleated Red Blood Cells # Platelet SIG DECREASED Estimate Giant Platelets 3 H Polychromasia 2+ Poikilocytosis 3+ Anisocytosis 2+ Microcytosis 1+ Macrocytosis 2+ Sodium Level 137 Potassium Level 5.4 H Chloride Level 108 Carbon Dioxide 10 #L Level Anion Gap 19 H Blood Urea 96 H Nitrogen Creatinine 2.16 H Est Glomerular Filtrat Rate mL/min Glucose Level < 20 #*L Lactic Acid 12.7 *H Level Calcium Level 7.4 L Bedside Glucose 86 Test 09/23/18 08:07 09/23/18 09:07 09/23/18 09:31 09/23/18 09:47 Bedside Glucose 70 44 *L 108 132 Test 09/23/18 12:11 09/23/18 12:34 09/23/18 12:56 Lab Scanned REFERENCE LAB Report Bedside Glucose 95 White Blood Pending Count Red Blood Count Pending Hemoglobin Pending Hematocrit Pending Mean Pending Corpuscular Volume Mean Pending Corpuscular Hemoglobin Mean Pending Corpuscular Hemoglobin Conc ent Red Cell Pending Distribution Width Platelet Count Pending Mean Platelet Pending Volume Medications Medication Current Medications Albuterol/ Ipratropium (Duoneb) 3 ml Q4H RESP THERAPY PRN HHN SHORTNESS OF BREATH Last administered on 09/14/18 21:38; Admin Dose 3 ML; Start 09/12/18 at 20:30 Ascorbic Acid (Vitamin C) 250 mg DAILY GTB Last administered on 09/22/18 09:02; Admin Dose 250 MG; Start 09/13/18 at 09:00 Collagenase (Santyl) 1 applic BID TOP Last administered on 09/23/18 08:12; Admin Dose 1 APPLIC; Start 09/13/18 at 09:00 Escitalopram Oxalate (Lexapro) 10 mg DAILY GTB Last administered on 09/22/18 09:02; Admin Dose 10 MG; Start 09/13/18 at 09:00 Finasteride (Proscar) 5 mg DAILY GTB Last administered on 09/22/18 09:02; Admin Dose 5 MG; Start 09/13/18 at 09:00 Acetaminophen/ Hydrocodone Bitart (G[place]ham (5/325)) 1 tab Q6H PRN PO MODERATE PAIN LEVEL 4-6 Last administered on 09/22/18 13:32; Admin Dose 1 TAB; Start 09/12/18 at 21:30 Lorazepam (Ativan) 0.5 mg Q6H PRN GTB ANXIETY Last administered on 09/19/18 21:36; Admin Dose 0.5 MG; Start 09/12/18 at 21:30 Multivit/Ca Carb/ B Cmplx/FA/Prenat (Ofe-Mine) 1 tab DAILY GTB Last administered on 09/22/18 09:02; Admin Dose 1 TAB; Start 09/13/18 at 09:00 Ondansetron HCl (Zofran Tab) 4 mg Q6H PRN GTB NAUSEA AND/OR VOMITING; Start 09/12/18 at 21:30 Zinc Oxide (Zinc Oxide Oint) 1 applic DAILY TOP Last administered on 09/22/18 09:03; Admin Dose 1 APPLIC; Start 09/13/18 at 09:00 Heparin Sodium (Porcine) (Heparin (1000 Units/ml)) 4,000 unit AFTER DIALYSIS CATHETER Last administered on 09/20/18 14:14; Admin Dose 4,000 UNIT; Start 09/13/18 at 16:30 Albumin Human 100 ml @ 100 mls/hr WITH DIALYSIS PRN IV SBP <90 DURING DIALYSIS Last administered on 09/20/18 11:50; Admin Dose 100 MLS/HR; Start 09/13/18 at 16:30 Sodium Chloride (NS) -To prime the dialy... DIRECTED FOR HD PRN IV HD; Start 09/13/18 at 16:30 Epoetin Tim (Epogen (Esrd)) 8,000 units TuThSa@17 SC Last administered on 09/20/18 16:19; Admin Dose 8,000 UNITS; Start 09/13/18 at 17:00 Guaifenesin/ Dextromethorphan (Robitussin Dm Liquid Cup) 5 ml Q4H PRN PO Cough Last administered on 09/18/18 05:01; Admin Dose 5 ML; Start 09/14/18 at 22:00 Vancomycin HCl (Vancomycin Oral Syringe) 125 mg Q6 PO Last administered on 09/23/18 05:52; Admin Dose 125 MG; Start 09/15/18 at 12:00 Midodrine (Proamatine) 10 mg TID@09,13,17 PO Last administered on 09/22/18 19:36; Admin Dose 10 MG; Start 09/17/18 at 13:00 Famotidine (Pepcid) 40 mg HS GTB Last administered on 09/23/18 01:24; Admin Dose 40 MG; Start 09/19/18 at 21:00 Vasopressin 60 unit/Dextrose 60 ml @ 12 mls/hr Q12H IV Last administered on 09/23/18 05:21; Admin Dose 1.2 MLS/HR; Start 09/23/18 at 02:30 Sodium Bicarbonate 100 meq/Dextrose/ Sodium Chloride 1,100 ml @ 100 mls/hr Q11H IV Last administered on 09/23/18 08:57; Admin Dose 100 MLS/HR; Start 09/23/18 at 10:30 Norepinephrine 32 mg/Dextrose 250 ml @ 0.47 mls/hr TITRATE IV Last administered on 09/23/18at 10:40; Admin Dose 14.06 MLS/HR; Start 09/23/18 at 10:30 Phenylephrine HCl 80 mg/Dextrose 250 ml @ 18.75 mls/ hr TITRATE IV Last administered on 09/23/18at 10:39; Admin Dose 56.25 MLS/HR; Start 09/23/18 at 10:30 Metronidazole 100 ml @ 100 mls/hr Q8 IVPB ; Start 09/23/18 at 14:00 Dextrose (D50w Syringe) 25 ml PRN PRN IV DECREASED GLUCOSE; Start 09/23/18 at 09:30 NATALIA CARTAGENA NP Sep 23, 2018 13:14
[2018-09-23] MEDS ORDERED: VANCOMYCIN IV PER PHARMACY XX SCH (13:30)
[2018-09-23] MEDS ORDERED: metroNIDAZOLE 500 MG/NS (PMX) 100 ML IVPB SCH (14:00)
[2018-09-23] MEDS ORDERED: MEROPENEM 500MG/50 ML (PMX) 50 ML IVPB SCH ×2 (14:30)
[2018-09-23] MEDS ORDERED: VANCOMYCIN HCL 1.25 GM in SOD CHLORIDE 0.9% 250 ML IVPB SCH (15:00)
--- NOTE | 2018-09-23 16:32 | PN ---
DATE: 09/23/2018 SUBJECTIVE AND INTERVAL HISTORY: The patient developed tension pneumothorax and chest tube was placed in yesterday. The patient had a cardiac arrest and was coded. The patient was subsequently transferred to ICU. The patient also remained hypotensive despite putting in chest tube. The patient had to be started on multiple vasopressors.The patient remains nonverbal and critically ill. No reported seizure. No reported hematemesis or melena. No reported leg edema. No reported temperature spike although the patient's lactic acid level was high. The patient however was hypothermic and also noted to have severe metabolic acidosis with pH of 7.1 this morning. PHYSICAL EXAMINATION: GENERAL: Revealed the patient to be nonverbal. VITAL SIGNS: Temperature 92.9 rectal, pulse 60, respiration 23, blood pressure 85/44, O2 saturation 98% on FiO2 of 85%. The patient is on full vent support. HEENT: No eye discharge or redness. Nose and ears are normal externally. NECK: Tracheostomy in place. Mild secretion. CHEST: Diminished air entry bilaterally. CARDIOVASCULAR: S1, S2 normal. No murmur. ABDOMEN: Soft, nondistended. EXTREMITIES: No edema or cyanosis. NEUROLOGIC: The patient is nonverbal. LABORATORY DATA: Done this morning: ABG: pH 7, pCO2 of 28.4, pO2 of 118. Chemistry: Sodium 137, potassium 5.4, BUN 96, creatinine 2.1, bicarbonate of only 10. Blood glucose was less than 20 which went up to 86 after D50 and the patient was also started on bicarbonate drip. CBC revealed WBC 19.2, hemoglobin 6.6 and platelet of 45. IMPRESSION: 1. Cardiac arrest secondary to tension pneumothorax status post chest tube placement and also possible septic shock. 2. Respiratory failure. 3. End-stage renal disease. 4. Thrombocytopenia. 5. Anemia. 6. Dysphagia. 7. Recent Clostridium difficile colitis. PLAN: The patient was empirically started on IV vancomycin and meropenem and was continued on vancomycin through G-tube and IV metronidazole for C. diff colitis. The patient has also been started on D5 and bicarbonate drip. The patient currently is on norepinephrine, phenylephrine and vasopressin to maintain adequate mean arterial pressures; however, the patient still remains critically ill. I spoke with the patient's daughter, Lillian and recommended the patient be made DNR. She agreed with that and patient was made DNR. Total critical care time spent is 35 minutes. Plan of care was discussed with the patient's nurse, Asmita. Dictated By: RUBÉN BRODY/JAVIER Conf#: [id number] DID#: [id number] CC: FELICIANO RAMIREZ MD;*EndCC* MTDD
--- NOTE | 2018-09-24 07:05 | DES ---
Date/Time of Note Date/Time of Note DATE: 09/24/18 TIME: 07:04 Discharge/ Summary Admission/Discharge Info Admit Date/Time Sep 12, 2018 at 12:05 Date/Time 09/23/2018- 14:18 Hospital Course - hYPOKALEMIA -C. difficile colitis, continue Vanco via G-tube. Dr. Rebolledo is following in infection disease consultation. -Pancytopenia, status post blood transfusion. Dr. Coleman is following him here in hematology consultation. Dr. Hedrick is following in gastroenterology consultation. 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 Continue Prevacid. -Coronary artery disease status post PCI. Patient with pancytopenia with history of recurrent gastrointestinal bleed, unfortunately cannot be giving asp irin or Plavix. -Permanent pacemaker -Ventilator dependent respiratory failure. Dr. Mendoza is following in pulmonology consultation. -Hemodialysis dependent end-stage renal disease. Continue hemodialysis. Dr. Mari is following in nephrology consultation. -Dysphagia with G-tube -Sacral decubitus. Continue local wound care. -Depression. Continue Lexapro. -History of prostate cancer Pending Labs/Cultures Laboratory Tests Test 09/23/18 07:44 09/23/18 08:07 09/23/18 09:07 09/23/18 09:31 Bedside 86 70 44 108 Glucose mg/dL (70-220) mg/dL (70-220) mg/dL (70-220) mg/dL (70-220) Test 09/23/18 09:47 09/23/18 12:11 09/23/18 12:34 09/23/18 12:56 Bedside 132 95 Glucose mg/dL (70-220) mg/dL (70-220) Lab Scanned REFERENCE Report LAB [id number] White Blood 19.3 Count 10^3/ul (4.8-1 0.8) Red Blood 2.04 Count 10^6/ul (4.70- 6.10) Hemoglobin 6.6 g/dl (14.0-18. 0) Hematocrit 22.8 % (42.0-52.0) Mean 111.8 Corpuscular fl (82.0-101.0 Volume ) Mean 32.4 Corpuscular pg (29.0-33.0) Hemoglobin Mean 28.9 Corpuscular g/dl (32.0-37. Hemoglobin Conc 0) ent Red Cell 26.6 Distribution % (11.5-14.5) Width Platelet Count 45 10^3/UL (140-4 15) Mean Platelet 12.4 Volume fl (7.4-10.4) Immature 13.400 Granulocytes % % (0.001-0.429 ) Neutrophils % % (39.0-77.0) Segmented 34 % (39-77) Neutrophils % (Manual) Band 33 % (0-4) Neutrophils % (Manual) Lymphocytes % % (15.0-51.0) Lymphocytes % 11 % (15-51) (Manual) Reactive 1 % (0-0) Lymphocytes % (Manual) Monocytes % % (0.0-11.0) Monocytes % 9 % (0-11) (Manual) Eosinophils % % (0.0-7.0) Basophils % % (0.0-2.0) Metamyelocytes 2 % (0-0) % (manual) Myelocytes % 9 % (0-0) (Manual) Promyelocytes % 1 % (0-0) (Manual) Nucleated Red 10 % (0-0) Blood Cells % Immature 2.590 Granulocytes # 10^3/ul (0.0-0 .031) Neutrophils # 10^3/ul (1.6-7 .5) Neutrophils # 7.8 (Manual) 10^3/ul (1.6-7 .5) Band 6.3 Neutrophils # 10^3/ul (0.0-0 .6) Lymphocytes 2.1 (Manual) 10^3/ul (0.8-2 .9) Lymphocytes # 10^3/ul (0.8-2 .9) Reactive 0.1 Lymphocytes # 10^3/ul (0.0-0 .0) Monocytes # 10^3/ul (0.3-0 .9) Monocytes # 1.7 (Manual) 10^3/ul (0.3-0 .9) Eosinophils # 10^3/ul (0.0-0 .5) Basophils # 10^3/ul (0.0-0 .1) Metamyelocytes 0.3 # 10^3/ul (0.0-0 .0) Myelocytes # 1.7 10^3/ul (0.0-0 .0) Promyelocytes 0.1 # 10^3/ul (0-0) Nucleated Red 10^3/ul (0.0-0 Blood Cells # .0) Platelet SIG DECREASED Estimate Polychromasia 1+ (0-0) Hypochromasia 2+ (0-0) Poikilocytosis 2+ (0-0) Anisocytosis 2+ (0-0) Microcytosis 1+ (0-0) Macrocytosis 2+ (0-0) Spherocytes 1+ (0-0) Sodium Level 136 mmol/L (135-14 4) Potassium 6.2 Level mmol/L (3.5-5. 1) Chloride Level 109 mmol/L (97-110 ) Carbon Dioxide 6 Level mmol/L (21-31) Anion Gap 21 (5-13) Blood Urea 88 Nitrogen mg/dl (7-20) Creatinine 2.16 mg/dl (0.61-1. 24) Est Glomerular mL/min (>60) Filtrat Rate mL/min Glucose Level 87 mg/dl (70-220) Calcium Level 7.2 mg/dl (8.4-10. 2) JENNIFER RICHARD Sep 24, 2018 07:05
== END 2018-09-23 14:18 | disposition expired | DRG 870 ==
LOC: E/R 09:26 → ICU 12:05 → 6WM 09-14 02:09 → ICU 09-22 21:02
PROVIDERS: ADMIT Internal Medicine; ATTEND Internal Medicine
PROC: 5A1955Z Respiratory Ventilation, Greater than 96 Consecutive Hours (ICD-10-PCS; principal; 2018-09-12)
PROC: 30233N1 Transfusion of Nonautologous Red Blood Cells into Peripheral Vein, Percutaneous Approach (ICD-10-PCS; 2018-09-12)
PROC: 5A1D70Z Performance of Urinary Filtration, Intermittent, Less than 6 Hours Per Day (ICD-10-PCS; 2018-09-14)
PROC: 5A12012 Performance of Cardiac Output, Single, Manual (ICD-10-PCS; 2018-09-22)
PROC: 0W9B30Z Drainage of Left Pleural Cavity with Drainage Device, Percutaneous Approach (ICD-10-PCS; 2018-09-22)
DX: A41.9 Sepsis, unspecified organism (principal); L89.153 Pressure ulcer of sacral region, stage 3; N18.6 End stage renal disease; J93.0 Spontaneous tension pneumothorax; R65.21 Severe sepsis with septic shock; D61.818 Other pancytopenia; J96.10 Chronic respiratory failure, unspecified whether with hypoxia or hypercapnia; A04.72 Enterocolitis due to Clostridium difficile, not specified as recurrent; J98.11 Atelectasis; Z99.11 Dependence on respirator [ventilator] status; I13.2 Hypertensive heart and chronic kidney disease with heart failure and with stage 5 chronic kidney disease, or end stage renal disease; I42.9 Cardiomyopathy, unspecified; E87.2 Acidosis; G93.1 Anoxic brain damage, not elsewhere classified; D63.1 Anemia in chronic kidney disease; D50.9 Iron deficiency anemia, unspecified; E11.22 Type 2 diabetes mellitus with diabetic chronic kidney disease; E87.70 Fluid overload, unspecified; E87.6 Hypokalemia; F32.9 Major depressive disorder, single episode, unspecified; I46.9 Cardiac arrest, cause unspecified; I95.9 Hypotension, unspecified; I50.9 Heart failure, unspecified; I25.10 Atherosclerotic heart disease of native coronary artery without angina pectoris; I51.7 Cardiomegaly; N40.0 Benign prostatic hyperplasia without lower urinary tract symptoms; R13.10 Dysphagia, unspecified; Z66 Do not resuscitate; Z99.2 Dependence on renal dialysis; Z93.0 Tracheostomy status; Z93.1 Gastrostomy status; Z95.5 Presence of coronary angioplasty implant and graft; Z95.0 Presence of cardiac pacemaker; Z87.01 Personal history of pneumonia (recurrent); Z87.440 Personal history of urinary (tract) infections
CPT/HCPCS: 36430; 36600; 71045; 74018; 80048; 80053; 82270; 82607; 82728; 82746; 82803; 82962; 83010; 83540; 83605; 83615; 83625; 83735; 84100; 84155; 84165; 84466; 85025; 85045; 86850; 86860; 86870; 86880; 86900; 86901; 86906; 86920; 86971; 87075; 87081; 87340; 90686; 90935; 92950; 93970; 94002; 94003; 94640; 94664; 96365; C9113; J0171; J1335; J1644; J2185; J2270; J2370; J2916; J3370; J3480; J7040; J7042; J7050; J7070; P9016; P9047; Q4081